=== PATIENT | male | born 1975 | race Caucasian/White ===

== ENCOUNTER 2021-10-15 13:00 | Emergency (ER) | payer OTHER, SELFPAY ==
[2021-10-15 13:33] VITALS: BP 153/99; PULSE 87; RESP 18; TEMP 36.8; O2SAT 95; BMI 26.5
--- NOTE | 2021-10-15 14:00 | ED.GENADULT ---
HPI - General Adult General Time Seen by Provider: 14:00 Date Seen: 10/15/21 Chief complaint: Abdominal Pain Stated complaint: Pancreatitis flare up Time Seen by Provider: 10/15/21 13:08 Source: patient Mode of arrival: ambulatory Limitations: no limitations History of Present Illness HPI narrative: Patient is a 46 year white male with a history of recurrent pancreatitis. He initially had pancreatitis when he was drinking heavily after the loss of his daughter, but more recently has been exacerbated by poor diet. He had been doing very well with his diet, had a service bringing in food, and is on Creon per a GI specialist in the [facility]. He reports he has had several days of increasing periumbilical epigastric and left upper quadrant pain. He is not interested in imaging but he does respond well to fluids and pain control and anti nausea medicine. He has had no chest pain no shortness of breath no fevers, no change in bowel or bladder habits. Related Data Home Medications Medication Instructions Recorded Confirmed fluoxetine 40 mg capsule mg 10/15/21 [id number] cap PO 10/15/21 24,000-76,000-120,000 unit capsule,delayed rel (Creon) omeprazole 20 mg capsule,delayed mg 10/15/21 release Previous Rx's Medication Instructions Recorded hydrocodone 5 mg-acetaminophen 325 1 tab PO Q8H abdominal pain #14 10/15/21 mg tablet tabs Allergies Allergy/AdvReac Type Severity Reaction Status Date / Time Penicillins Allergy Unknown Unverified 10/15/21 14:08 Review of Systems Status of ROS: Reports: 6 or more systems reviewed and unremarkable except as noted in History and below PFSH PFSH Medical History Depression GERD (gastroesophageal reflux disease) Pancreatitis Surgical History S/P right knee surgery Social History Smoking Status: Current every day smoker What tobacco products do you use: cigarettes Second hand tobacco smoke exposure: Yes How often do you have a drink containing alcohol: monthly or less How many standard drinks containing alcohol do you have on a typical day: 3 or 4 How often do you have six or more drinks on one occasion: Never AUDIT-C Alcohol total score: 2 Non-prescribed substance use: denies use Exam Narrative: Exam Narrative: Objective: Patient's vital signs show slightly elevated blood pressure he is afebrile HEENT is unremarkable, no jaundice Pulse regular Abdomen soft benign mild epigastric and left upper quadrant tenderness to palpation, no rebound Extremities are no edema Neurologic nonfocal Skin warm and dry Const: Vital Signs, click to edit/add: Vital Signs - 24 hr 10/15/21 13:33 Temperature 98.3 F Pulse Rate [Pulse Oximeter] 87 Respiratory Rate 18 Blood Pressure [Ri ght Upper Arm] 153/99 H Pulse Oximetry 95 Oxygen Delivery Me thod Room Air Course Course Hospital Course: Because the patient's history of pancreatitis will do an IV, IV fluid, IV morphine and Zofran. Will check laboratory studies including amylase and lipase. After informed decision making and mutual decision making we decided to not do CT scanning given this is a similar problem he has had in the past, he has had several CTs in the past the pancreas is look normal by his history. Vital Signs Vital signs: Initial Vital Signs Temperature 98.3 F 10/15/21 13:33 Temperature Source Temporal Artery Scan 10/15/21 13:33 Pulse Rate 87 10/15/21 13:33 Pulse Rhythm 10/15/21 13:33 Respiratory Rate 18 10/15/21 13:33 Blood Pressure 153/99 H 10/15/21 13:33 Blood Pressure Mean 117 10/15/21 13:33 Pulse Oximetry 95 10/15/21 13:33 Oxygen Delivery Method 10/15/21 13:33 Vital Signs Temperature 98.3 F 10/15/21 13:33 Pulse Rate 87 10/15/21 13:33 Respiratory Rate 18 10/15/21 13:33 Blood Pressure 153/99 H 10/15/21 13:33 Pulse Oximetry 95 10/15/21 13:33 Oxygen Delivery Method 10/15/21 13:33 Temperature 98.3 F 10/15/21 13:33 Pulse Rate 87 10/15/21 13:33 Respiratory Rate 18 10/15/21 13:33 Blood Pressure 153/99 H 10/15/21 13:33 Pulse Oximetry 95 10/15/21 13:33 Oxygen Delivery Method 10/15/21 13:33 Medical Decision Making MDM Narrative Medical decision making narrative: Patient likely has recurrent pancreatitis probably due to his poor diet he denies drinking. He has had recurrent pancreatitis from dietary and did changes from a fairly light and more bland type diet. Will rehydrate and pain control and nausea control and disposition pending findings above. Addendum: The patient's got nice relief from his morphine pain is starting to come back a little bit he will get additional morphine, he would like to try and go home. He has had luck with pain medications at home and NPO type diet for 12-24 hours. If he is not doing well he can return to the ED. He will be given Wood for home, light activity, sips of liquid, return as needed. Update GI doctor within the next 1-2 days, return sooner as needed to ED. Of note is the lab lipase was elevated at 477 his white count was normal hemoglobin is 15.9 potassium is low normal at 3.3 liver function tests slightly elevated CRP less than 0.5 Lab Data Labs: Lab Results 10/15/21 10/15/21 Range/Units 14:25 14:25 WBC 6.46 (4.50-11.00) K/uL RBC 4.76 (4.30-5.90) m/uL Hgb 15.9 (13.5-17.5) gm/dL Hct 45.0 (37.0-53.0) % MCV 95 (80-100) fL MCH 33 (26-34) pg MCHC 35 (32-36) gm/dL RDW Coeff of Clint 14.9 (11.5-15.5) % Plt Count 186 (140-440) K/uL Neut % (Auto) 75.4 H (42.0-72.0) % Lymph % (Auto) 13.8 L (20-44) % [place] % (Auto) 7.3 (0.0-11.0) % Eos % (Auto) 2.5 (0.0-7.0) % Baso % (Auto) 0.8 (0.0-3.0) % Neut # (Auto) 4.90 (1.7-7.0) K/uL Lymph # (Auto) 0.90 (0.90-2.90) K/uL [place] # (Auto) 0.50 (0.00-0.90) K/UL Eos # (Auto) 0.16 (0.00-0.50) K/uL Baso # (Auto) 0.05 (0.00-0.30) K/uL Abs Immat Gran (auto) 0.01 (0.00-0.30) K/uL Sodium 138 (135-149) mmol/L Potassium 3.3 L (3.6-5.1) mmol/L Chloride 106 (96-114) mmol/L Carbon Dioxide 19 L (20-32) mmol/L BUN 6 (5-24) mg/dL Creatinine 0.6 (0.5-1.5) mg/dL Estimated Creat Clear 158.84 Estimated GFR 121 ml/min Glucose 112 (60-115) mg/dL Calcium 8.6 (8.4-10.6) mg/dL Total Bilirubin 0.5 (0.1-1.5) mg/dL Direct Bilirubin 0.2 (0.0-0.5) mg/dL AST 126 H (12-35) U/L ALT 113 H (4-50) U/L Alkaline Phosphatase 139 (40-150) U/L C-Reactive Protein < 0.5 L (0.5-1.0) mg/dL Total Protein 6.8 (6.0-8.3) g/dL Albumin 4.0 (3.3-5.0) g/dL Amylase 71 (18-89) U/L Lipase 477 H (23-300) U/L Discharge Plan Discharge Clinical Impression: Abdominal pain, acute, Acute recurrent pancreatitis Patient Disposition: Home w/ Parent or Adult Condition: Improved Instructions: Pancreatitis (ED) Additional Instructions: Light diet for the next several days, pain medicine as needed, update GI doctor within the next 24-48 hours with symptoms, return to the ED problems or concerns. Activity Level: Light activity Discharge Diet: Clear Liquid Prescriptions: New hydrocodone-acetaminophen 5-325 mg tablet 1 tab PO Q8H Qty: 14 0RF No Action fluoxetine 40 mg capsule omeprazole 20 mg capsule,delayed release(DR/EC) Creon 24,000-76,000 -120,000 unit capsule,delayed release(DR/EC) PO Follow Up/Referrals: Provider,Not a Local [Primary Care Provider] - Stand Alone Forms: [employer] Info Instructions
[2021-10-15] MEDS: ONDANSETRON 2 MG/ML inj 4 MG IVP (14:21)
[2021-10-15] MEDS: MORPHINE 4 MG/ML INJ IVP ×2 (14:21→15:33)
[2021-10-15] MEDS: 0.9 % SODIUM CHLORIDE 1000 ml 1,000 ML 6000 ML IV (14:22)
[2021-10-15 14:44] LABS: Basophils Absolute Auto 0.05 K/uL (0.00-0.30); Basophils Percent Auto 0.8 % (0.0-3.0); Eosinophils Absolute Auto 0.16 K/uL (0.00-0.50); Eosinophils Percent Auto 2.5 % (0.0-7.0); Hemoglobin* 15.9 gm/dL (13.5-17.5); Immature Granulocytes Abs Auto 0.01 K/uL (0.00-0.30); Lymphocytes Percent Auto 13.8 % (20-44); Mean Corpuscular HGB Conc 35 gm/dL (32-36); Mean Corpuscular Hemoglobin 33 pg (26-34); Mean Corpuscular Volume 95 fL (80-100); Monocytes Percent Auto 7.3 % (0.0-11.0); Neutrophils Percent Auto 75.4 % (42.0-72.0); Platelet Count* 186 K/uL (140-440); RDW Coefficient of Variation % 14.9 % (11.5-15.5); Red Blood Count 4.76 m/uL (4.30-5.90); White Blood Count* 6.46 K/uL (4.50-11.00)
[2021-10-15 14:49] LABS: Slide Review Reflex No
[2021-10-15 14:51] LABS: Chloride* 106 mmol/L (96-114)
[2021-10-15 14:52] LABS: Sodium* 138 mmol/L (135-149)
[2021-10-15 14:53] LABS: Potassium* 3.3 mmol/L (3.6-5.1)
[2021-10-15 14:55] LABS: Amylase* 71 U/L (18-89); Aspartate Amino Transferase* 126 U/L (12-35); Bilirubin Direct* 0.2 mg/dL (0.0-0.5); Bilirubin Total* 0.5 mg/dL (0.1-1.5); Blood Urea Nitrogen* 6 mg/dL (5-24); Carbon Dioxide* 19 mmol/L (20-32); Creatinine* 0.6 mg/dL (0.5-1.5); Est. Creatinine Clearance* 158.84; Estimated Glomerular Filt Rate 121 ml/min; Total Protein* 6.8 g/dL (6.0-8.3)
[2021-10-15 14:56] LABS: Alanine Aminotransferase* 113 U/L (4-50); Alkaline Phosphatase* 139 U/L (40-150); Calcium* 8.6 mg/dL (8.4-10.6); Glucose* 112 mg/dL (60-115); Lipase* 477 U/L (23-300)
[2021-10-15 14:58] LABS: C Reactive Protein* < 0.5 mg/dL (0.5-1.0)
[2021-10-15 15:32] VITALS: PULSE 80; RESP 14; O2SAT 94
== END 2021-10-15 15:41 | disposition home or self-care (01) ==
PROVIDERS: Emergency Provider Family Medicine
DX: K29.20 Alcoholic gastritis without bleeding (principal)
CPT/HCPCS: 36415; 80048; 80076; 82150; 83690; 85025; 86140; 96374; 96375; 96376; 99284; J2270; J2405; J7030

== ENCOUNTER 2021-11-24 21:02 | Emergency (ER) | payer OTHER, SELFPAY ==
[2021-11-24 21:27] VITALS: BP 115/80; PULSE 89; RESP 16; TEMP 36.6; O2SAT 95; BMI 28.6
--- NOTE | 2021-11-24 22:11 | ED.ABDPAIN ---
HPI - Abdominal Pain General Chief Complaint: Abdominal Pain Stated Complaint: Abdominal pain, pancreatitis flareup Time Seen by Provider: 11/24/21 21:30 History of Present Illness HPI narrative: 46-year-old man presenting to the emergency department with complaint of epigastric area abdominal pain. He says he knows what it is it is his pancreatitis flaring. Tonight he was making supper and had episode of PTSD related to his 1-month-old daughter's and had a couple of drinks and then his pain started in his epigastrium. A sharp pain pressure. Started vomiting than without hematemesis Not so much cramping in his extremities but has a twitching in his thighs. Was seen for similar fiber 6 weeks ago here in this emergency department. Spouse dropped him off. Does have a 6-year-old boy at home. Takes daily omeprazole. Related Data Home Medications Medication Instructions Recorded Confirmed fluoxetine 40 mg capsule mg 10/15/21 [id number] cap PO 10/15/21 24,000-76,000-120,000 unit capsule,delayed rel (Creon) omeprazole 20 mg capsule,delayed mg 10/15/21 release Previous Rx's Medication Instructions Recorded hydrocodone 5 mg-acetaminophen 325 1 tab PO Q8H abdominal pain #14 10/15/21 mg tablet tabs hydrocodone 5 mg-acetaminophen 325 1 tab PO TID PRN pain #5 tabs 11/25/21 mg tablet Allergies Allergy/AdvReac Type Severity Reaction Status Date / Time Penicillins Allergy Unknown Verified 11/24/21 21:32 Review of Systems Status of ROS Reports: 10 or more systems reviewed and unremarkable except as noted in History and below [facility] Medical History Depression GERD (gastroesophageal reflux disease) Pancreatitis Surgical History S/P right knee surgery Social History Smoking Status: Current some day smoker What tobacco products do you use: cigarettes Second hand tobacco smoke exposure: Yes How often do you have a drink containing alcohol: 2-3 times a week How many standard drinks containing alcohol do you have on a typical day: 1 or 2 How often do you have six or more drinks on one occasion: Less than monthly AUDIT-C Alcohol total score: 4 Non-prescribed substance use: denies use Exam Narrative: Exam Narrative: Is pleasant. Tremulous. Face is flushed. Slightly labored with breathing as if in discomfort. Skin is warm and dry. Well-perfused peripherally. No extremity edema. Oropharynx is hyperemic consistent with nicotine dependence. A little sticky Lungs are clear Abdomen overweight. Normoactive bowel sounds. Tender and a little guarding to palpation in the epigastrium Moving extremities without difficulty Const: Vital Signs, click to edit/add: Vital Signs - 24 hr 11/24/21 21:27 Temperature 97.9 F Pulse Rate [Left P ulse Oximeter] 89 Respiratory Rate 16 Blood Pressure [Ri ght Upper Arm] 115/80 Pulse Oximetry 95 Oxygen Delivery Me thod Room Air Documenting provider has reviewed patient's vital signs: yes Course Course Hospital Course: IV was established. IV fluids. Given morphine and Zofran as last time as well as lorazepam and ketorolac Reevaluation(s) Reevaluation #1: Reassessment notes improvement. Pain is starting to come back a little bit. Was redosed with low-dose morphine Vital Signs Vital signs: Initial Vital Signs Temperature 97.9 F 11/24/21 21:27 Temperature Source Oral 11/24/21 21:27 Pulse Rate 89 11/24/21 21:27 Respiratory Rate 16 11/24/21 21:27 Blood Pressure 115/80 11/24/21 21:27 Blood Pressure Mean 91 11/24/21 21:27 Blood Pressure Position Sitting 11/24/21 21:27 Pulse Oximetry 95 11/24/21 21:27 Oxygen Delivery Method 11/24/21 21:27 Vital Signs Temperature 97.9 F 11/24/21 21:27 Pulse Rate 89 11/24/21 21:27 Respiratory Rate 16 11/24/21 21:27 Blood Pressure 115/80 11/24/21 21:27 Pulse Oximetry 95 11/24/21 21:27 Oxygen Delivery Method 11/24/21 21:27 Temperature 97.9 F 11/24/21 21:27 Pulse Rate 89 11/24/21 21:27 Respiratory Rate 16 11/24/21 21:27 Blood Pressure 115/80 11/24/21 21:27 Pulse Oximetry 95 09/19/22 21:27 Oxygen Delivery Method 11/24/21 21:27 MDM - Abdominal Pain MDM Narrative Medical decision making narrative: White count is not elevated. Transaminases a little more elevated than last time but not terribly high. Normal lipase. Venous blood gas consistent with hyperventilation I think. Alcohol level is 0.19 Having more consistent with alcoholic gastritis in the setting of a panic attack. Medical Records Attestation: I reviewed the patient's medical records. Lab Data Attestation: I reviewed the patient's lab results. Labs: Lab Results 11/24/21 11/24/21 11/24/21 Range/Units 22:28 22:28 22:28 WBC 5.77 (4.50-11.00) K/uL RBC 4.76 (4.30-5.90) m/uL Hgb 16.6 (13.5-17.5) gm/dL Hct 46.5 (37.0-53.0) % MCV 98 (80-100) fL MCH 35 H (26-34) pg MCHC 36 (32-36) gm/dL RDW Coeff of Clint 14.0 (11.5-15.5) % Plt Count 220 (140-440) K/uL Neut % (Auto) 53.7 (42.0-72.0) % Lymph % (Auto) 32.1 (20-44) % [place] % (Auto) 9.0 (0.0-11.0) % Eos % (Auto) 3.3 (0.0-7.0) % Baso % (Auto) 1.0 (0.0-3.0) % Neut # (Auto) 3.10 (1.7-7.0) K/uL Lymph # (Auto) 1.85 (0.90-2.90) K/uL [place] # (Auto) 0.50 (0.00-0.90) K/UL Eos # (Auto) 0.19 (0.00-0.50) K/uL Baso # (Auto) 0.06 (0.00-0.30) K/uL Abs Immat Gran (auto) 0.05 (0.00-0.30) K/uL VBG pH 7.455 H (7.32-7.43) VBG pCO2 38 L (40-50) mmHG VBG pO2 73.9 H (25-47) mmHG VBG HCO3 27 (21-28) mmol/L Sodium 138 (135-149) mmol/L Potassium 3.2 L (3.6-5.1) mmol/L Chloride 103 (96-114) mmol/L Carbon Dioxide 24 (20-32) mmol/L BUN 6 (5-24) mg/dL Creatinine 0.6 (0.5-1.5) mg/dL Estimated Creat Clear 163.85 Estimated GFR 121 ml/min Glucose 121 H (60-115) mg/dL Calcium 8.5 (8.4-10.6) mg/dL Magnesium 1.9 (1.5-2.6) mg/dL Total Bilirubin 0.4 (0.1-1.5) mg/dL Direct Bilirubin 0.3 (0.0-0.5) mg/dL AST 165 H (12-35) U/L ALT 215 H (4-50) U/L Alkaline Phosphatase 126 (40-150) U/L C-Reactive Protein < 0.5 L (0.5-1.0) mg/dL Total Protein 6.5 (6.0-8.3) g/dL Albumin 3.9 (3.3-5.0) g/dL Lipase 41 (23-300) U/L Ethyl Alcohol 0.19 H (0.01-0.03) % Discharge Plan Discharge Clinical Impression: Panic attack, Acute alcoholic gastritis Patient Disposition: Home w/ Parent or Adult Condition: Improved Additional Instructions: Slow advance of diet over the next 36 hours. Diluted juices and broths to thicker soups and smoothies. Rice. [place]. Return for uncontrolled pain, associated fever, intractable vomiting. Please reach out again to support network, your therapist, sponsor. Have fun with your son tomorrow. Zofran from [employer] if you like. Prescriptions: No Action hydrocodone-acetaminophen 5-325 mg tablet 1 tab PO TID PRN (Reason: pain) Qty: 5 0RF fluoxetine 40 mg capsule omeprazole 20 mg capsule,delayed release(DR/EC) Creon 24,000-76,000 -120,000 unit capsule,delayed release(DR/EC) PO hydrocodone-acetaminophen 5-325 mg tablet 1 tab PO Q8H Qty: 14 0RF Follow Up/Referrals: Provider,Not a Local [Primary Care Provider] - Stand Alone Forms: [employer] Info Instructions
--- OUTSIDE RECORDS SUMMARY | 2021-11-24 22:15 | XMS_ITS | Clinical Summary ---
:1975 Author Organization [employer] [facility] [place] [address] Care Team Providers Name Role Phone Melisa Delgado NP Primary Care Provider Allergies Active Allergy Reactions Severity Noted Date Comments Penicillins Hives 04/05/2014 Medications Medication Sig Dispensed Refills Start Date End Date Status calcium carbonate Take 500 mg by 0 Active (TUMS) 200 mg mouth 4 times daily calcium (500 mg) if needed for chewable tablet Heartburn or GI Upset. omeprazole Take 1 Capsule by 30 Capsule 0 05/17/2020 Active (PRILOSEC) 20 mg mouth once daily Delayed-Release before a meal. capsuleIndications: Acute pancreatitis, unspecified complication status, unspecified pancreatitis type alfuzosin Take 1 Tablet by 0 02/13/2021 Ac tive (UROXATRAL) 10 mg mouth once daily Sustained-Release with a meal. tablet acetaminophen Take 1-2 Tablets 30 Tablet 0 03/24/2021 Active (TYLENOL EXTRA (500-1,000 mg) by STRGTH) 500 mg mouth every 6 hours tabletIndications: if needed for Epigastric pain, Headache or Pain. Chronic Max acetaminophen pancreatitis, dose: 4000mg in 24 unspecified hrs. pancreatitis type (HC) Creon 24,000-76,000 0 04/26/2021 Active -120,000 unit Delayed-Release capsule sildenafil citrate Take 1/2-1 tab Take 10 Tablet 5 06/06/2021 Active (VIAGRA) 100 mg 30min to 4 hours tabletIndications: before sexual Libido, decreased activity. Max 100mg/24hr. FLUoxetine (PROzac) Take 20 mg by mouth 0 Active 20 mg capsule once daily. omeprazole Take 1 Capsule (40 14 Capsule 0 11/11/2021 Active (PRILOSEC) 40 mg mg) by mouth once Delayed-Release daily. capsuleIndications: Upper abdominal pain aluminum-magnesium Take 15 mL by mouth 354 mL 0 11/11/2021 Active hydroxide-simethicon 4 times daily if e (MAALOX PLUS; needed for GI MYLANTA) 200-200-20 Upset. mg/5 mL suspensionIndication s: Upper abdominal pain ondansetron (ZOFRAN Place 1 Tablet (4 12 Tablet 0 11/11/2021 Active ODT) 4 mg mg) on the tongue disintegrating every 8 hours if tabletIndications: needed for Nausea Nausea/Vomiting. alum hydrox-mag carb Chew 2 Tablets by 60 Tablet 0 11/15/2021 Active (GAVISCON EXT STR mouth 4 times daily CHEW) 160-105 mg if needed chewableIndications: (abdominal pain). Abdominal pain, unspecified abdominal location ondansetron (ZOFRAN Place 2 Tablets (8 20 Tablet 0 11/15/2021 Active ODT) 4 mg mg) on the tongue disintegrating every 8 hours if tabletIndications: needed for Abdominal pain, Nausea/Vomiting. 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 01/06/2021 Failure of outpatient treatment 01/06/2021 Complicated bereavement 01/06/2021 Complex tear of medial meniscus of right knee as curre nt injury 11/23/2020 Sprain of anterior cruciate ligament of right knee Primary osteoarthritis of right knee 11/23/2020 History of arthroscopy of right knee 09/22/2020 HTN (hypertension) 05/17/2020 Alcohol-induced acute pancreatitis without infection o r necrosis 05/17/2020 Panic disorder 11/26/2014 Anxiety 04/07/2014 Chronic prostatitis 05/04/2011 Dislocation closed, finger Overview: LT 5 th finger 2016 Grief at loss of child Alcohol abuse Polyp of colon Encounters Date Type Specialty Care Team Description 11/15/2021 Emergency Ball[facility]ory Ab dominal pain, unspecified abdominal locat ion (Primary Dx) 11/15/2021 Travel 11/11/2021 Emergency Kevyn Jones PA Up per abdominal pain (Primary Dx); Alcohol use; Hypokalemia; Hyperglycemia; Nausea 11/11/2021 Travel from Last 3 Months Immunizations Name Administration Dates Next Due COVID-19 vaccine (Tamion-J&J) PF, 06/08/2020 MDV COVID-19 vaccine (Intentiva 03/05/2021 30mcg/0.3mL) PF, MDV HepA-HepB (Twinrix) 06/25/2014 Influenza Intradermal PF 18-64 yrs 05/03/2012 Influenza Virus, Unspecified 02/24/2019, 12/18/2013 Influenza, IIV3 (Age 6-35 mos) 03/22/2009 Influenza, IIV3 (Age >=3 years) 12/18/2013, 02/05/2013, 04/09, 12/29/2010, 01/04/2010, 03/22/2009 Influenza, IIV4 01/02/2021, 11/27/2019, 04/01/2018, 03/26/2016 Pneumococcal Poly,23-Valent 03/05/2021 (Pneumovax) Tdap 08/20/2012, 03/22/2009 Family History Medical History Relation Name Comments Good Health Brother Diabetes Father Other Father polyps colon Good Health Mother Good Health Sister Good Health Son 1 Good Health Son 2 Cancer No Family History Heart attack No Family History Stroke No Family History Relation Name Status Comments Brother Alive Father Alive Maternal Grandfather Alive Maternal Grandmother Alive Mother Alive Paternal Grandfather Paternal Grandmother Sister Alive Son 1 Alive Son 2 Alive Social History Tobacco Use Types Packs/Day Years Used Date Current Some Day Smoker Cigarettes 0.5 12 Quit : 05/25/2014 Smokeless Tobacco: Never Used Tobacco Cessation: Counseling Given: Yes Comments: occl cigarette when nervous Alcohol Use Standard Drinks/Week Comments Not Currently 0 (1 standard drink = 0.6 oz pure alcoho l) stopped Alcohol Habits Answer Date Recorded How often do you have a drink containing alcohol? 2-4 times a month 11/10/2018 How many drinks containing alcohol do you have on a 3 or 4 11/10/2018 typical day when you are drinking? How often do you have six or more drinks on one Never 11/10/2018 occasion? Comment: stopped 07/30/2020 Sex Assigned at Date Recorded Not on file COVID-19 Exposure Response Date Recorded In the last 10 days, have you been in contact with No / Unsu re 11/15/2021 6:11 AM CDT someone who was confirmed or suspected to have Coronavirus/COVID-19? Obstetrics History Last Filed Vital Signs Vital Sign Reading Time Taken Comments Blood Pressure 147/96 11/15/2021 8:00 AM CDT Pulse 72 11/15/2021 8:00 AM CDT Temperature 36.6 ??C (97.9 ??F) 11/15/2021 6:19 AM CDT Respiratory Rate 20 11/15/2021 6:19 AM CDT Oxygen Saturation 94% 11/15/2021 8:00 AM CDT Inhaled Oxygen Concentration - - Weight 94.2 kg (207 lb 10.8 oz) 11/15/2021 6:19 AM CDT Height 177.8 cm (5' 10) 11/15/2021 6:19 AM CDT Body Mass Index 29.8 11/15/2021 6:19 AM CDT Plan of Treatment Health Maintenance Due Date Last Done Comments Hepatitis C screening for age 0709/20/1993 18-79 Depression screening for age 12+ 06/21/2021 06/21/2020, , 11/27/2019, Additional history exists Influenza for age 9-49 11/06/2021 01/02/2021, 11/27/2019, 02/24/2019, Additional history exists BMI (ht and wt on same day) for 03/05/2022 03/05/2021, 01/06, age 18+ 01/02/2021, Additional history exists Pneumococcal series for age 19-64 03/05/2022 03/05/2021 (2 - PCV) Tetanus booster 08/20/2022 08/20/2012, 03/22/2009 Lipids for age 45-75 11/25/2025 11/25/2020, 11/27/2019, 11/10/2018, Additional history exists Colonoscopy through age 75 12/17/2025 12/17/2020, 6, 10/09/2015, Additional history exists Tdap Completed 08/20/2012, 03/22/2009 COVID-19 vaccine series Completed 03/05/2021, 06/08/2020 Procedures Procedure Name Priority Date/Time Associated Comments Diagnosis RED CELL MORPHOLOGY STAT 11/15/2021 6:32 AM Re sults for this CDT procedure are i n the results section. PLATELET ESTIMATE STAT 11/15/2021 6:32 AM Resu lts for this CDT procedure are i n the results section. MANUAL DIFFERENTIAL STAT 11/15/2021 6:32 AM Re sults for this CDT procedure are i n the results section. CBC WITH AUTO STAT 11/15/2021 6:32 AM Results for this DIFFERENTIAL CDT procedure are i n the results section. LIPASE STAT 11/15/2021 6:32 AM Results f or this CDT procedure are i n the results section. HEPATIC FUNCTION STAT 11/15/2021 6:32 AM Resul ts for this PANEL CDT procedure are i n the results section. BASIC METABOLIC PANEL STAT 11/15/2021 6:32 AM Results for this CDT procedure are i n the results section. CBC WITH AUTO STAT 11/15/2021 6:32 AM Results for this DIFFERENTIAL CDT procedure are i n the results section. CBC WITH AUTO STAT 11/11/2021 12:14 Results fo r this DIFFERENTIAL PM CDT procedure are i n the results section. BASIC METABOLIC PANEL STAT 11/11/2021 12:14 Re sults for this PM CDT procedure are i n the results section. LIPASE STAT 11/11/2021 12:14 Results for this PM CDT procedure are i n the results section. HEPATIC FUNCTION STAT 11/11/2021 12:14 Results for this PANEL PM CDT procedure are i n the results section. MAGNESIUM STAT 11/11/2021 12:14 Results for this PM CDT procedure are i n the results section. C-REACTIVE PROTEIN STAT 11/11/2021 12:14 Resul ts for this PM CDT procedure are i n the results section. ETHANOL SERUM OR STAT 11/11/2021 12:14 Results for this PLASMA PM CDT procedure are i n the results section. CBC WITH AUTO STAT 11/11/2021 12:14 Results fo r this DIFFERENTIAL PM CDT procedure are i n the results section. from Last 3 Months Results (ABNORMAL) CBC WITH AUTO DIFFERENTIAL (11/15/2021 6:32 AM CDT)Only the most recent of2 resultswithin the time period is included. [facility] Method Time Signature WHITE BLOOD 5.7 4.5 - 11.0 11/15/2021 [place] COUNT thou/cu mm 6:59 AM [facility] RED BLOOD COUNT 5.02 4.30 - 11/15/2021 [place] 5.90 6:[address] [facility] mil/cu mm LABORATORY HEMOGLOBIN 17.1 13.5 - 11/15/2021 [facility] 17.5 g/dL 6:59 AM [facility] HEMATOCRIT 48.9 37.0 - 11/15/2021 [facility] 53.0 % 6:59 AM [facility] MCV 97 80 - 100 11/15/2021 [facility] fL 6:59 AM [facility] MCH 34.1 (H) 26.0 - 11/15/2021 [place] 34.0 pg 6:59 AM [facility] MCHC 35.0 32.0 - 11/15/2021 [facility] 36.0 g/dL 6:59 AM [facility] RDW 14.7 11.5 - 11/15/2021 [facility] 15.5 % 6:59 AM [facility] PLATELET COUNT 196 140 - 440 11/15/2021 [facility] thou/cu mm 6:59 AM [facility] MPV 10.7 6.5 - 11.0 11/15/2021 [place] fL 6:59 AM [facility] Specimen Anatomical Collection Method / Collection Time Recei alberta Time (Source) Location / Volume Laterality Blood BLOOD SPECIMEN / Venipuncture / 11/15/2021 6:32 2021 6:35 Unknown Unknown AM CDT AM CDT Kory Reynoso MD HEMATOLOGY Performing Organization Address City/State/ZIP Code Phon e Number [facility] [address] [place] [address] RED CELL MORPHOLOGY (11/15/2021 6:32 AM CDT) [facility] Method Time Signature RBC COMMENT RBC RBC 11/15/2021 [place] morphology morphology 6:59 AM CDT MEDICAL appears appears CENTER normal normal, RBC LABORATORY morphology within normal limits for newborns. LARGE Present 11/15/2021 [place] PLATELETS 6:59 AM [facility] Specimen Anatomical Collection Method / Collection Time Recei alberta Time (Source) Location / Volume Laterality Blood BLOOD SPECIMEN / Venipuncture / 11/15/2021 6:32 2021 6:35 Unknown Unknown AM CDT AM CDT Kory Reynoso MD HEMATOLOGY Performing Organization Address City/[facility]/ZIP Code Phon e Number [facility] [address] [place] [address] PLATELET ESTIMATE (11/15/2021 6:32 AM CDT) [facility] Time Signature PLATELET Adequate Adequate, No 11/15/2021 [place] ESTIMATE estimate 6:59 AM [facility] Specimen Anatomical Collection Method / Collection Time Recei alberta Time (Source) Location / Volume Laterality Blood BLOOD SPECIMEN / Venipuncture / 11/15/2021 6:32 2021 6:35 Unknown Unknown AM CDT AM CDT Kory Reynoso MD HEMATOLOGY Performing Organization Address City/State/ZIP Code Phon e Number [facility] [address] [place] [address] MANUAL DIFFERENTIAL (11/15/2021 6:32 AM CDT) P athologist Signature NEUTROPHILS 69.0 % 11/15/2021 [place] RELATIVE 6:59 AM CDT [facility] LYMPHOCYTES 20.0 % 11/15/2021 [place] RELATIVE 6:59 AM CDT [facility] MONOCYTES 8.0 % 11/15/2021 [place] RELATIVE 6:59 AM CDT [facility] EOSINOPHILS 3.0 % 11/15/2021 [place] RELATIVE 6:59 AM CDT [facility] BASOPHILS 0.0 % 11/15/2021 [place] RELATIVE 6:59 AM CDT [facility] NEUTROPHILS 3.9 1.7 - 7.0 11/15/2021 [place] ABSOLUTE thou/cu mm 6:59 AM CDT [facility] LYMPHOCYTES 1.1 0.9 - 2.9 11/15/2021 [place] ABSOLUTE thou/cu mm 6:59 AM T [facility] LABORATORY MONOCYTES 0.5 <0.9 11/15/2021 [place] ABSOLUTE thou/cu mm 6:59 AM T [facility] LABORATORY EOSINOPHILS 0.2 <0.5 11/15/2021 [place] ABSOLUTE thou/cu mm 6:59 AM T [facility] LABORATORY BASOPHILS 0.0 <0.3 11/15/2021 [place] ABSOLUTE thou/cu mm 6:59 AM T [facility] LABORATORY Specimen Anatomical Collection Method / Collection Time Recei alberta Time (Source) Location / Volume Laterality Blood BLOOD SPECIMEN / Venipuncture / 11/15/2021 6:32 2021 6:35 Unknown Unknown AM CDT AM CDT Kory Reynoso MD HEMATOLOGY Performing Organization Address [facility] e [facility] LABORATORY [address] [place] [address] LIPASE (11/15/2021 6:32 AM CDT)Only the most recent of2 resultswithin the time period is included. P athologist Signature LIPASE 11.0 8.0 - 78.0 11/15/2021 [place] IU/L 6:55 AM [facility] Specimen Anatomical Collection Method / Collection Time Recei alberta Time (Source) Location / Volume Laterality Blood BLOOD SPECIMEN / Venipuncture / 11/15/2021 6:32 2021 6:35 Unknown Unknown AM CDT AM CDT Kory Reynoso MD CHEMISTRY Performing Organization Address [facility] e Number [facility] [address] [place] [address] (ABNORMAL) HEPATIC FUNCTION PANEL (11/15/2021 6:32 AM CDT)Only the most recent of2 resultswithin the time period is included. Patholo gist Method Time Signature ALBUMIN 4.1 3.5 - 5.2 11/15/2021 [place] g/dL 6:55 AM [facility] PROTEIN,TOTAL 7.2 6.0 - 8.0 11/15/2021 [place] g/dL 6:55 AM [facility] GLOBULIN 3.1 2.0 - 3.7 11/15/2021 [place] g/dL 6:55 AM [facility] A/G RATIO 1.3 1.0 - 2.0 11/15/2021 [place] 6:55 AM [facility] BILIRUBIN,TOTAL 1.0 0.2 - 1.2 11/15/2021 [place] mg/dL 6:55 AM [facility] BILIRUBIN,DIRECT 0.6 (H) 0.1 - 0.5 11/15/2021 [place] mg/dL 6:55 AM [facility] BILIRUBIN,INDIRE 0.4 0.2 - 0.8 11/15/[address] [place] [address] mg/dL 6:55 AM [facility] ALK PHOSPHATASE 164 (H) 50 - 136 11/15/2021 [place] IU/L 6:55 AM [facility] ALT (SGPT) 132 (H) 8 - 45 11/15/2021 [place] IU/L 6:55 AM [facility] AST (SGOT) 177 (H) 2 - 40 11/15/2021 [facility] IU/L 6:55 AM [facility] Specimen Anatomical Collection Method / Collection Time Recei alberta Time (Source) Location / Volume Laterality Blood BLOOD SPECIMEN / Venipuncture / 11/15/2021 6:32 2021 6:35 Unknown Unknown AM CDT AM CDT Kory Reynoso MD CHEMISTRY Performing Organization Address City/State/ZIP Code Phon e Number [facility] [address] [place] [address] (ABNORMAL) BASIC METABOLIC PANEL (11/15/2021 6:32 AM CDT)Only the most recent of 2 resultswithin the time period is included. Analysis Performed At Patho logist Time Signature SODIUM 141 135 - 145 11/15/2021 [place] mmol/L 6:56 AM [facility] POTASSIUM 2.9 (L) 3.5 - 5.0 11/15/2021 [place] mmol/L 6:56 AM [facility] CHLORIDE 102 98 - 110 11/15/2021 [place] mmol/L 6:56 AM [facility] CO2,TOTAL 21 21 - 31 11/15/2021 [place] mmol/L 6:56 AM [facility] ANION GAP 18 5 - 18 11/15/2021 [place] 6:56 AM [facility] GLUCOSE 119 (H) 65 - 100 11/15/2021 [place] mg/dL 6:56 AM [facility] CALCIUM 9.2 8.5 - 10.5 11/15/2021 [place] mg/dL 6:56 AM [facility] BUN 3 (L) 8 - 25 11/15/2021 [facility] mg/dL 6:56 AM [facility] CREATININE 0.72 0.72 - 11/15/2021 [place] 1.25 mg/dL 6:56 AM [facility] BUN/CREAT RATIO 4 (L) 10 - 20 [facility] eGFR >90 >90 11/15/2021 [facility] mL/min/1.7 6:56 AM [facility] 3m2 LABORATORY Comment: As of 2021, eGFR is calcu lated by the CKD-EPI creatinine equation without race adjustment. eGFR can be inf luenced by muscle mass, exercise, and diet. The reported eGFR is an estimation only and is only applicable if the renal function is stable. Specimen Anatomical Collection Method / Collection Time Recei alberta Time (Source) Location / Volume Laterality Blood BLOOD SPECIMEN / Venipuncture / 11/15/2021 6:32 2021 6:35 Unknown Unknown AM CDT AM T Kory Reynoso MD CHEMISTRY Performing Organization Address City/State/ZIP Code Phon e Number [facility] [address] [place] [address] (ABNORMAL) ETHANOL SERUM OR PLASMA (11/11/2021 12:14 PM CDT) P athologist Signature ETHANOL 0.232 (H) <0.010 11/11/2021 [place] g/dL 12:41 PM [facility] Specimen Anatomical Collection Method Collection Time Receive d Time (Source) Location / / Volume Laterality Blood BLOOD SPECIMEN / Capillary / 11/11/2021 12:14 022 Unknown Unknown PM CDT 12:21 PM CDT Jules Fitzpatrick MD CHEMISTRY Performing Organization Address [facility]/[place] [facility] [place] Number [facility] [address] [place] [address] C-REACTIVE PROTEIN (11/11/2021 12:14 PM CDT) P athologist Signature C-REACTIVE 0.10 <0.50 11/11/2021 [place] PROTEIN mg/dL 12:40 PM CDT [facility] LAB[facility] Specimen Anatomical Collection Method Collection Time Receive d Time (Source) Location / / Volume Laterality Blood BLOOD SPECIMEN / Capillary / 11/11/2021 12:14 022 Unknown Unknown PM CDT 12:21 PM CDT Jules Fitzpatrick MD CHEMISTRY Performing Organization Address [facility] Phon e Number [facility] [address] [place] [address] MAGNESIUM (11/11/2021 12:14 PM CDT) P athologist Signature MAGNESIUM 2.0 1.6 - 2.6 11/11/2021 [place] mg/dL 12:43 PM CDT [facility] LAB[facility] Specimen Anatomical Collection Method Collection Time Receive d Time (Source) Location / / Volume Laterality Blood BLOOD SPECIMEN / Capillary / 11/11/2021 12:14 022 Unknown Unknown PM CDT 12:21 PM CDT Jules Fitzpatrick MD CHEMISTRY Performing Organization Address City/[facility]/ZIP Code Phon e Number [facility] [address] [place] [address] from Last 3 Months Insurance Payer Benefit Plan / Subscriber ID Effective Dates Phone Addre ss Type Group [facility] [id number] 2018-Present [address] [address] [place] [address] Juan Ramon Granados Williams Personal/Family Self 1975 [address] (Home) [place] [id number] Advance Directives Latest Code Status on File Code Status Date Activated Date Inactivated Comments Full Code 02/26/2021 1:49 PM 02/27/2021 12:26 PM Code Status Discussion: Reviewed Preferences Full Code 01/06/2021 12:02 PM 01/07/2021 12:43 PM Code Status Discussion: Not Discussed Full Code 12/17/2020 7:37 AM 12/17/2020 11:31 AM Code Status Discussion: Discussed Full Code 05/15/2020 12:45 AM 05/17/2020 5:31 PM Code Status Discussion: Not Discussed Full Code 09/28/2016 1:12 PM 09/28/2016 9:55 PM Care Teams Keg Header Relationship Specialty Start Date End Date Melisa Delgado NP PCP - General Family Practice 04/05/14 [address] [place] [id number]
--- OUTSIDE RECORDS SUMMARY | 2021-11-24 22:15 | XMS_ITS | Encounter Summary ---
:1975 Author Organization [facility] Address [address] [place] [address] Care Team Providers Name Role Phone Aydin Morales MD Primary Care Provider Encounter Details Date Type Department Care Team Description 11/01/2009 Emergency room [facility] Social History Tobacco Use Types Packs/Day Years Used Date Never Assessed Sex Assigned at Date Recorded Not on file documented as of this encounter Plan of Treatment Not on filedocumented as of this encounter Visit Diagnoses Not on filedocumented in this encounter Care Teams Team Lead Relationship Specialty Start Date End Date Aydin Morales MD PCP - General 11/01/09 1001 [facility] [address] [place] [address] documented as of this encounter
--- OUTSIDE RECORDS SUMMARY | 2021-11-24 22:15 | XMS_ITS | Encounter Summary ---
:1975 Author Organization [facility] Address [address] [place] [address]. [place] [address] Care Team Providers Name Role Phone Aydin Moraels MD Primary Care Provider Reason for Visit Reason Comments ER NOTES Encounter Details Date Type Department Care Team Description 11/01/2009 Orders Only [facility] Brian Vicente Dog Bite (Primary Dx) DO Loc 911 [facility] ABBY [place]O [address] (Wo rk) Social History Tobacco Use Types Packs/Day Years Used Date Never Assessed Sex Assigned at Date Recorded Not on file documented as of this encounter Plan of Treatment Not on filedocumented as of this encounter Visit Diagnoses Diagnosis Dog bite(E906.0) - Primary Dog bite documented in this encounter Care Teams Interim Controller Relationship Specialty Start Date End Date Aydin Morales MD PCP - General 11/01/09 1001 [facility] [address] [place] [id number] documented as of this encounter
--- OUTSIDE RECORDS SUMMARY | 2021-11-24 22:15 | XMS_ITS | Encounter Summary ---
:1975 Author Organization [place] Address [address] [place] [address] Care Team Providers Name Role Phone Aydin Morales MD Primary Care Provider Reason for Visit Reason Comments Abdominal Pain Pt was on 3A, had acute ABD pain, sent to ER by Hospitalist. Auth/Cert Specialty Diagnoses / Procedures Referred By Contact Refer red To Contact Med Surg Diagnoses Acute pancreatitis Acute pancreatitis [address] [place] [address] Phone: Referral ID Status Reason Start Date Expiration Date Visits Requ ested Visits Authorized [id number] 1 1 Encounter Details Date Type Department Care Team Description 10/20/2020 - [facility] Emily Borja MD [address] [address] Alcohol-induced 10/23/2020 Encounter [facility] [address] Jackson Coughlin DO [address] [place] [address] acute pancreatitis, Jackson Martinez MD [address] [place] [address] unspecified [address] [facility] Chetan Villasenor MD [address] [address] complication status MPLABBY Solano (Primary Dx) [id number] Social History Tobacco Use Types Packs/Day Years Used Date Current Every Day Smoker 0.5 Smokeless Tobacco: Never Used Alcohol Use Standard Drinks/Week Comments Yes 0 (1 standard drink = 0.6 oz pure curren tly drinking anything, beer alcohol) or white claws Alcohol Habits Answer Date Recorded How often do you have a drink Not asked containing alcohol? How many drinks containing alcohol Not asked do you have on a typical day when you are drinking? How often do you have six or more Not asked drinks on one occasion? Comment: currently drinking anything, beer 2020 or white claws Sex Assigned at Date Recorded Not on file COVID-19 Exposure Response Date Recorded In the last month, have you been in contact with No / Unsure 10/19/2020 12:13 PM CDT someone who was confirmed or suspected to have Coronavirus / COVID-19? documented as of this encounter Last Filed Vital Signs Vital Sign Reading Time Taken Comments Blood Pressure 148/89 10/23/2020 8:22 AM CDT Pulse 67 10/23/2020 8:22 AM CDT Temperature 36.9 ??C (98.4 ??F) 10/23/2020 8:22 AM CDT Respiratory Rate 18 10/23/2020 8:22 AM CDT Oxygen Saturation 97% 10/23/2020 8:22 AM CDT Inhaled Oxygen Concentration - - Weight 95.3 kg (210 lb) 10/20/2020 3:28 AM CDT Height - - Body Mass Index 29.29 10/19/2020 7:27 PM CDT documented in this encounter Discharge Summaries Chetan Villasenor MD - 10/23/2020 11:42 AM CDT [facility] Hospitalist Discharge Summary Date of Admission: 10/20/2020 Date of Discharge: 10/23/2020 12:42 PM Discharging Provider: Chetan Villasenor MD Discharge Team: Hospitalist Service, [facility] Discharge Diagnoses SIRS without active infection due to Acute pancreatitis Acute EtOH pancreatitis Alcohol Use disorder with withdrawal Follow-ups Needed After Discharge Follow-up Appointments Follow Up and recommended labs and tests Follow up with primary care provider, Aydin Morales, within 7 days for hospital follow- up. No follow up labs or test are needed. Unresulted Labs Ordered in the Past 30 Days of this Admission Date and Time Order Name Status Description 10/21/2020 10:47 AM Blood Culture Arm, Left Preliminary 10/21/2020 10:47 AM Blood Culture Hand, Right Preliminary These results will be followed up by Ordering physician Discharge Disposition Discharged to home Condition at discharge: Stable Hospital Course Juan Ramon Franco is a 45 year old male admitted on 10/20/2020. He??was admitted for acute pancreatitisand alcohol withdrawal due to alcohol relapse related to bereavement on the 1yr anniversary of deathof daughter at 1 month age. He presented with abd pain, nausea and found to have elevated lipase. Did have some elevated inflammatory markers. He was treated with IVF and narcotics and gradual advancement of diet with improvement. His hospital course was c/b development of mild ileus which resolved. He was subsequently discharged to home on oral narcotics and bowel regimen. ?? Consultations This Hospital Stay [facility] IP CONSULT VASCULAR ACCESS CARE ADULT IP CONSULT Code Status Prior Time Spent on this Encounter I, Chetan Villasenor MD, personally saw the patient today and spent less than or equal to 30 minutes discharging this patient. Chetan Villasenor MD [facility] [address] [place] [id number] Physical Exam BP (!) 148/89 (BP Location: Right arm) Pulse 67 Temp 98.4 ??F (36.9 ??C) (Oral) Resp 18 Wt 95.3 kg (210 lb) SpO2 97% BMI 29.29 kg/m?? Constitutional: Awake, alert, cooperative, no apparent distress Respiratory: Clear to auscultation bilaterally, no crackles or wheezing Cardiovascular: Regular rate and rhythm, normal S1 and S2, and no murmur noted, no edema GI: Normal bowel sounds, soft, non-distended, non-tender Skin/Integumen: No rashes, no cyanosis Primary Care Physician Aydin Morales Discharge Orders Reason for your hospital stay You were hospitalized for pancreatitis and alcohol withdrawal. Treated with medications Activity Your activity upon discharge: activity as tolerated Follow Up and recommended labs and tests Follow up with primary care provider, Aydin Morales, within 7 days for hospital follow- up. No followup labs or test are needed. Diet Follow this diet upon discharge: Orders Placed This Encounter Regular Diet Adult Significant Results and Procedures Most Recent 3 CBC's:Recent Labs Lab Test 10/23/20 0731 10/22/20 0741 10/21/20 0735 10/20/20 0350 WBC -- 11.6* 14.1* 8.2 HGB -- 13.8 15.6 16.0 MCV -- 99 101* 99 PLT 159 150 166 208 Most Recent 3 BMP's:Recent Labs Lab Test 10/23/20 0731 10/22/20 0741 10/21/20 0735 10/20/20 0350 NA -- 135 135 138 POTASSIUM -- 3.9 4.2 3.6 CHLORIDE -- 100 103 106 CO2 -- 27 29 28 BUN -- 7 7 7 CR 0.70 0.64* 0.78 0.83 ANIONGAP -- 8 3 4 JOYCE -- 8.6 8.7 8.9 GLC -- 92 88 108* , Results for orders placed or performed during the hospital encounter of 10/20/20 XR Abdomen 1 View Narrative EXAM: XR ABDOMEN 1 VIEW LOCATION: [facility] DATE/TIME: 10/20/2020 4:00 AM INDICATION: abdominal pain COMPARISON: None. Impression IMPRESSION: Negative abdomen. Bowel gas pattern is normal. Nothing for obstruction or free air. No evidence for renal stones. XR Abdomen 1 View Narrative Exam: XR ABDOMEN 1 VIEW, 10/22/2020 5:40 PM Indication: abd distention Comparison: 10/20/2020 XR abdomen Findings: Portable, supine view of the abdomen. Air-filled mild distention of transverse colon, measuring up to 6.7 cm. No pneumatosis or portal venous gas. Lung bases are clear. Soft tissues and osseous structures are unremarkable. Impression Impression: Air-filled mild distention of transverse colon, concerning for early adynamic ileus. I have personally reviewed the examination and initial interpretation and I agree with the findings. GILBERTO ENRIQUEZ MD Discharge Medications Discharge Medication List as of 10/23/2020 12:00 PM START taking these medications Details acetaminophen (TYLENOL) 325 MG tablet Take 2 tablets (650 mg) by mouth every 6 hours as needed for mild pain, fever or headaches, Disp-100 tablet, R-3, E-Prescribe bisacodyl (DULCOLAX) [address] 1 suppository (10 mg) rectally daily as needed for constipation, Disp-10 suppository, R-0, E-Prescribe oxyCODONE (ROXICODONE) 5 MG tablet Take 1 tablet (5 mg) by mouth every 6 hours as needed for moderate to severe pain, Disp-18 tablet, R-0, Local Print polyethylene glycol (MIRALAX) 17 GM/Dose powder Take 17 g by mouth daily as needed for constipation,Disp-510 g, R-0, E-Prescribe simethicone (MYLICON) 80 MG chewable tablet Take 1 tablet (80 mg) by mouth every 6 hours as needed for cramping or other (bloating), Disp-30 tablet, R-0, E-Prescribe CONTINUE these medications which have NOT CHANGED Details escitalopram (LEXAPRO) 20 MG tablet Take 20 mg by mouth daily, Historical multivitamin (CENTRUM SILVER) tablet Take 1 tablet by mouth daily , Historical omeprazole (PRILOSEC) [address] capsule Take 20 mg by mouth daily, Historical Allergies Allergies Allergen Reactions ??? Pcn [Penicillins] Unknown reaction as child documented in this encounter Medications at Time of Discharge Medication Sig Dispensed Refills Start Date End Date acetaminophen Take 2 tablets (650 100 tablet 3 10/23/2020 (TYLENOL) 325 MG mg) by mouth every 6 tabletIndications: hours as needed for Alcohol-induced acute mild pain, fever or pancreatitis, headaches unspecified complication status bisacodyl (DULCOLAX) Place 1 suppository 10 suppository 0 10 MG (10 mg) rectally suppositoryIndications daily as needed for : Alcohol-induced constipation acute pancreatitis, unspecified complication status escitalopram (LEXAPRO) Take 20 mg by mouth 0 20 MG tablet daily multivitamin (CENTRUM Take 1 tablet by 0 SILVER) tablet mouth daily omeprazole (PRILOSEC) Take 20 mg by mouth [address] capsule daily oxyCODONE (ROXICODONE) Take 1 tablet (5 mg) 18 tablet 0 5 MG by mouth every 6 tabletIndications: hours as needed for Alcohol-induced acute moderate to severe pancreatitis, pain unspecified complication status polyethylene glycol Take 17 g by mouth 510 g 0 10/24/19 21 (MIRALAX) 17 GM/Dose daily as needed for powderIndications: constipation Alcohol-induced acute pancreatitis, unspecified complication status simethicone (MYLICON) Take 1 tablet (80 30 tablet 0 021 80 MG chewable mg) by mouth every 6 tabletIndications: hours as needed for Alcohol-induced acute cramping or other pancreatitis, (bloating) unspecified complication status documented as of this encounter Progress Notes Andra Roper PA - 10/22/2020 7:49 PM CDT Medicine Cross Cover Note Contacted by nursing regarding increased abdominal pain, nausea, and lack of flatus/BM after pain related to pancreatitis had previously been improving. AXR shows air-filled mild distention of transverse colon, concerning for early adynamic ileus. Made patient NPO. Reordered IV pain meds to be used in place of oxycodone but at lower/less frequent dosing and advised that patient limit all opioids as able. Reeval abdominal exam and antegrade bowel function in AM, sooner if acute changes arise. Andra Roper PA-C Hospitalist Service Contact information available via [facility] Paging/Directory Chetan Villasenor MD - 10/22/2020 4:19 PM CDT [facility] Medicine Progress Note - Hospitalist Service, Federico 9 Date of Admission: 10/20/2020 Assessment & Plan Juan Ramon Franco is a 45 year old male admitted on 10/20/2020. He was admitted for acute pancreatitis and alcohol withdrawal due to alcohol relapse related to bereavement on the 1yr anniversary of of daughter at 1 month age. ?? SIRS without active infection due to Acute pancreatitis Acute EtOH pancreatitis - Patient presented to the emergency department the day prior to admission with elevated lipase and abdominal pain. On the morning of his admission he awoke with severe pain and his lipase was found tohave increased to 3500. - Cont Dilaudid for pain control (PALLIATIVE MEDICINE PHYSICIAN) - Added OxyIR PRN - ADAT - Cont IVF for now Alcohol withdrawal Patient was admitted initially to the detox unit. Patient did present with desire for treatment. - CIWA protocol - Valium as needed - high dose gabapentin ?? Alcohol use disorder Patient has been using significant amounts of alcohol and drinking daily. This is related to significant life stressors as it is the 1 year anniversary of his daughter's . He has been sober in thepast but relapsed several months ago unfortunately. -Patient may benefit from continued chem dependence therapy-- pt not interested at present -He may be a good candidate for naltrexone - unlikely candidate at this time -Social work to follow-up with him for possible inpatient chemotherapy if needed Bereavement due to the 1yr anniversary of of daughter at 1 month age. Diet: Advance Diet as Tolerated: Regular Diet Adult DVT Prophylaxis: Enoxaparin (Lovenox) SQ Dangelo Catheter: Not present Central Lines: None Code Status: Full Code Disposition Plan Expected discharge: 10/23/2020 recommended to prior living arrangement once alcohol withdrawal and pancreatitis resolved. The patient's care was discussed with the Bedside Nurse and Patient. Chetan Villasenor MD Hospitalist Service, [address] Securely message with the [employer] Console (learn more here) Text page via [facility] Paging/Directory Please see sign in/sign out for up to date coverage information Clinically Significant Risk Factors Present on Admission 35 minutes of time was spent with the patient. We specifically discussed the current documented clinical status and care coordination with greater than 50% of the time spent on counseling and coordination of care. Interval History No acute events overnight, pain improved, requesting to eat 4 point ROS otherwise unremarkable Data reviewed today: I reviewed all medications, new labs and imaging results over the last 24 hours. I personally reviewed no images or EKG's today. Physical Exam Vital Signs: Temp: 99.2 ??F (37.3 ??C) Temp src: Oral BP: (!) 142/84 Pulse: 108 Resp: 18 SpO2: 94 % O2 Device: None (Room air) Weight: 210 lbs 0 oz General: Alert awake and oriented, no distress, conversational- soft spoken Eyes: Normal pink mucosa with no signs of pallor, no scleral icterus. Neck: No significant lymphadenopathy, no palpable LN, No JVD Heart: Regular rate and rhythm, normal S1, normal S2, no murmurs rubs or gallops, PMI is nondisplaced Peripherally there is no edema Lungs: No increased work of breathing, good effort, lungs are clear to auscultation bilaterally No wheezing or crackles Breathing on room air Abdomen: generalized tender, nondistended, normal active bowel sounds, no palpable masses Extremities: Normal capillary refill, no edema, no clubbing, no cyanosis Neuro: Alert and oriented to person place location and situation Grossly arms and legs are without any focal motor or sensory deficits Gait was not assessed Cranial nerves II through XII are grossly intact Psych: No acute psychosis, good mood, good spirits Data Recent Labs Lab 10/22/20 0741 10/21/20 0735 10/20/20 1545 10/20/20 0350 WBC 11.6* 14.1* -- 8.2 HGB 13.8 15.6 -- 16.0 MCV 99 101* -- 99 PLT 150 166 -- 208 NA 135 135 -- 138 POTASSIUM 3.9 4.2 -- 3.6 CHLORIDE 100 103 -- 106 CO2 27 29 -- 28 BUN 7 7 -- 7 CR 0.64* 0.78 0.75 0.83 ANIONGAP 8 3 -- 4 JOYCE 8.6 8.7 -- 8.9 GLC 92 88 -- 108* ALBUMIN 2.6* 3.2* -- 3.8 PROTTOTAL 6.4* 7.0 -- 7.3 BILITOTAL 0.7 0.7 -- 1.0 ALKPHOS 109 105 -- 120 ALT 34 32 -- 48 AST 38 24 -- 35 LIPASE -- 1,374* -- 3,651* No results found for this or any previous visit (from the past 24 hour(s)). Medications ??? HYDROmorphone ??? lactated ringers 100 mL/hr at 10/22/20 1148 ??? enoxaparin ANTICOAGULANT 40 mg Subcutaneous Q24H ??? escitalopram 20 mg Oral Daily ??? [START ON 10/23/2020] pantoprazole 40 mg Oral QAM AC ??? polyethylene glycol 17 g Oral TID ??? senna-docusate 1 tablet Oral BID Or ??? senna-docusate 2 tablet Oral BID ??? sodium chloride (PF) 3 mL Intracatheter Q8H MALCOLM VILLALBA - 10/22/2020 3:12 PM CDT [facility] SPIRITUAL ASSESSMENT Progress Note [facility] ([place]B REFERRAL SOURCE: Staff referral - bedside nurse Yumiko Patient declined visit at this time; said that tomorrow would be better. PLAN: I will follow up tomorrow. [facility] Services remains available for patient, family, and staff support. Please page the trucking contractor ammonia box tender either via [email or web address] Web (Spiritual Health/[facility]) or by placing a STAT or AIMEE Epic referral for Spiritual Health (which will roll to the trucking contractor pager). Malcolm Villalba Straddle Carrier Operator Pager: [phone] Jackson Lockwood MD - 10/21/2020 3:44 PM CDT [facility] Progress Note - Hospitalist ServiceFederico Date of Admission: 10/20/2020 Assessment & Plan Juan Ramon Franco is a 45 year old male admitted on 10/20/2020. He was admitted for acute pancreatitis and alcohol withdrawal due to alcohol relapse related to bereavement on the 1yr anniversary of of daughter at 1 month age. ?? SIRS without active infection due to Acute pancreatitis Associated with Tachycardia, and low grade temps - Patient presented to the emergency department the day prior to admission with a lipase of 500. On the morning of his admission he awoke with severe pain and his lipase was found to have increased to 3500. This is all likely consistent with excessive alcohol use - Dilaudid for pain control - repeat labs on 10/21 - CLD and conitnue IVF until PO improving. Then wean off PALLIATIVE MEDICINE PHYSICIAN and stop IVF ~24 hr from now - send a peripheral BC in case infection is later presumed?? Alcohol withdrawal Patient was admitted initially to the detox unit. Patient did present with desire for treatment. - CIOH protocol - Valium as needed - high dose gabapentin ?? Alcohol use disorder Patient has been using significant amounts of alcohol and drinking daily. This is related to significant life stressors as it is the 1 year anniversary of his daughter's . He has been sober in themest but relapsed several months ago unfortunately. -Patient may benefit from continued chem dependence therapy-- pt not interested at present -He may be a good candidate for naltrexone - unlikely candidate at this time -Social work to follow-up with him for possible inpatient chemotherapy if needed Bereavement due to the 1yr anniversary of of daughter at 1 month age. Diet: Clear Liquid Diet DVT Prophylaxis: Enoxaparin (Lovenox) SQ Dangelo Catheter: Not present Central Lines: None Code Status: Full Code Disposition Plan Expected discharge: 10/23/2020 recommended to prior living arrangement once alcohol withdrawal and pancreatitis resolved. The patient's care was discussed with the Bedside Nurse and Patient. Jackson Lockwood MD Hospitalist Service, [address] Securely message with the [employer] Console (learn more here) Text page via [facility] Paging/Directory Please see sign in/sign out for up to date coverage information Clinically Significant Risk Factors Present on Admission 35 minutes of time was spent with the patient. We specifically discussed the current documented clinical status and care coordination with greater than 50% of the time spent on counseling and coordination of care. Interval History Seen today for follow up: Alcohol and Pancreatitis, bereavement of daughters anniversary No acute overnight events per patient or patient's family. Wants broth, liquids Okay with current res counselor and ivf Understands current mood state and support was offered He shared a video of his 1 month old daughter with me on his phone As of today/at time of my visit: Patient denies any headache, sore throat Patient denies any sleeping disturbance Patient denies any nausea or vomiting Patient reports + abdominal pain Patient denies any shortness of breath Patient denies any chest pain Patient reports no arm or leg edema Data reviewed today: I reviewed all medications, new labs and imaging results over the last 24 hours. I personally reviewed no images or EKG's today. Physical Exam Vital Signs: Temp: 100.3 ??F (37.9 ??C) Temp src: Oral BP: (!) 159/98 Pulse: (!) 123 Resp: 18 SpO2: 91 % O2 Device: None (Room air) Weight: 210 lbs 0 oz General: Alert awake and oriented, no distress, conversational- soft spoken Eyes: Normal pink mucosa with no signs of pallor, no scleral icterus. Neck: No significant lymphadenopathy, no palpable LN, No JVD Heart: Regular rate and rhythm, normal S1, normal S2, no murmurs rubs or gallops, PMI is nondisplaced Peripherally there is no edema Lungs: No increased work of breathing, good effort, lungs are clear to auscultation bilaterally No wheezing or crackles Breathing on room air Abdomen: generalized tender, nondistended, normal active bowel sounds, no palpable masses Extremities: Normal capillary refill, no edema, no clubbing, no cyanosis Neuro: Alert and oriented to person place location and situation Grossly arms and legs are without any focal motor or sensory deficits Gait was not assessed Cranial nerves II through XII are grossly intact Psych: No acute psychosis, good mood, good spirits Data Recent Labs Lab 10/21/20 0735 10/20/20 1545 10/20/20 0350 10/19/20 1530 WBC 14.1* -- 8.2 7.6 HGB 15.6 -- 16.0 16.4 MCV 101* -- 99 95 PLT 166 -- 208 229 NA 135 -- 138 137 POTASSIUM 4.2 -- 3.6 3.7 CHLORIDE 103 -- 106 107 CO2 29 -- 28 21 BUN 7 -- 7 4* CR 0.78 0.75 0.83 0.66 ANIONGAP 3 -- 4 9 JOYCE 8.7 -- 8.9 8.4* GLC 88 -- 108* 92 ALBUMIN 3.2* -- 3.8 4.0 PROTTOTAL 7.0 -- 7.3 7.6 BILITOTAL 0.7 -- 1.0 0.5 ALKPHOS 105 -- 120 121 ALT 32 -- 48 52 AST 24 -- 35 39 LIPASE 1,374* -- 3,651* 513* No results found for this or any previous visit (from the past 24 hour(s)). Medications ??? HYDROmorphone ??? lactated ringers 125 mL/hr at 10/21/20 1452 ??? enoxaparin ANTICOAGULANT 40 mg Subcutaneous Q24H ??? escitalopram 20 mg Oral Daily ??? famotidine 20 mg Intravenous Q12H ??? pantoprazole (PROTONIX) IV 40 mg Intravenous Daily with breakfast ??? polyethylene glycol 17 g Oral TID ??? senna-docusate 1 tablet Oral BID Or ??? senna-docusate 2 tablet Oral BID ??? sodium chloride (PF) 3 mL Intracatheter Q8H Micheal Boothe RN - 10/21/2020 6:30 AM CDT BP 138/85 (BP Location: Left arm) Pulse 96 Temp 99.7 ??F (37.6 ??C) (Oral) Resp 18 Wt 95.3 kg (210 lb) SpO2 93% BMI 29.29 kg/m?? Neuro: AOx4, CIWA 2/0 Cardiac: denies chest pain, VSS Respiratory: On RA, WDL GI/: epigastric tenderness, distended/fullness, no BM this shift, voiding without saving Diet/Appetite: NPO except ice Skin: RANDOLPH LDA: PIV infusing LR @ 125 mL/hr Activity: SBA Pain: Pain managed with PALLIATIVE MEDICINE PHYSICIAN dilaudid @ 0.3 [id number], need reminder to use PALLIATIVE MEDICINE PHYSICIAN Plan: Continue POC Jackson Lloyd DO - 10/20/2020 6:15 PM CDT Seen at bedside on arrival to . In a lot of pain, abdominal, with labs showing worsening lipase. Patient states he is not drinking. Increased dilauded during daytime has been ineffective. Placed orders for PALLIATIVE MEDICINE PHYSICIAN pump 0.3 mg q 15 m. 1.2 mg / hour lockout. Continue IVF, NPO Patient states no bowel movement in ~3 days so low threshold for NGT if developing nausea vomiting. Increase miralax from bid to tid. Hold for loose stools or vomiting. LR at 125 ml / hr. Continue CIWA protocol Rest as documented in today's H/P and progress notes. Jackson Lloyd D.O. Internal Medicine, Hospitalist [facility] Pager: [phone] Chetan Owen MD - 10/20/2020 11:30 AM CDT Pt was seen in ER, Status reviewed with ER nurse Admission history and physical from this morning reviewed Pt continues to complain of severe upper abdominal discomfort with nausea and vomiting. Pain is typical of past pancreatitis symptoms. Dilaudid 0.5 mg IV has been insufficient. Exam in the ER Alert, fully oriented, appears very uncomfortable Lungs clear CV regular rhythm Abdomen soft nondistended moderate epigastric tenderness, no rebound or guarding No tremors Assessment Alcoholic pancreatitis. Patient appears to be quite uncomfortable at this time. Plan Increase IV Dilaudid tp 0.5 to 1 mg every 30 minutes as needed Patient may benefit from a PALLIATIVE MEDICINE PHYSICIAN Trial of ketorolac IV Protonix Antiemetics IV fluids Alcohol drawl protocol Admission orders have been placed by Dr. Borja. documented in this encounter H&P Notes Evangelist Borja MD - 10/20/2020 5:10 AM CDT [facility] History and Physical - Hospitalist Service Date of Admission: 10/20/2020 Assessment & Plan Juan Ramon Franco is a 45 year old male admitted on 10/20/2020. He was admitted for acute pancreatitis and alcohol withdrawal. 1. Acute pancreatitis: Patient presented to the emergency department the day prior to admission witha lipase of 500. On the morning of his admission he awoke with severe pain and his lipase was found to have increased to 3500. This is all likely consistent with excessive alcohol use -N.p.o. -We will give 2 L of lactated Ringer's and then will start him on maintenance IV fluids -Dilaudid for pain control - repeat labs on 10/21 2. Alcohol withdrawal: Patient was admitted initially to the detox unit. Patient did present with desire for treatment. -[facility] protocol - Valium as needed - high dose gabapentin 3. Alcohol use disorder: Patient has been using significant amounts of alcohol and drinking daily. 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 -Patient may benefit from continued chem dependence therapy -He may be a good candidate for naltrexone -Social work to follow-up with him for possible inpatient chemotherapy if needed Diet: NPO DVT Prophylaxis: Enoxaparin (Lovenox) SQ Dangelo Catheter: Not present Central Lines: None Code Status: Full Code Disposition Plan Expected discharge: in 2-3 days recommended to to Chem Dep or home depending on patient preference once adequate pain management/ tolerating PO medications. The patient's care was discussed with the Patient. MD Brodie Guerrero [facility] Securely message with the [employer] Console (learn more here) Text page via [employer] Paging/Directory Chief Complaint Abdominal Pain History is obtained from the patient History of Present Illness Juan Ramon Franco is a 45 year old male who was admitted from the detox unit for worsening abdominal pain and was found to have acute pancreatitis. Patient has been increasing in his alcohol use his disease 1 year anniversary of his daughter's . He says he drinks about 10 white claws a day and sometimes adds shots of fireball. He drinks throughout the day and drinks daily. Last drink was yesterday. When he initially presented to the emergency department, his abdominal pain was manageable, his labswere within normal limits with the exception of a lipase of 500 ended the decision was made to admithim to the inpatient detox unit. However the morning of his admission, he awoke with severe abdominal pain and nausea that he felt like was similar to when he had pancreatitis approximately 1 year ago.He was brought back down to the emergency department where he was found to have a lipase of 3500. Hewill be admitted to the internal medicine service for the management of the above problems. Review of Systems The 10 point Review of Systems is negative other than noted in the HPI or here. Past Medical History I have reviewed this patient's medical history and updated it with pertinent information if needed. Past Medical History: Diagnosis Date ??? Anxiety ??? Depressive disorder ??? Pancreatitis Past Surgical History I have reviewed this patient's surgical history and updated it with pertinent information if needed. Past Surgical History: Procedure Laterality Date ??? ORTHOPEDIC SURGERY Social History I have reviewed this patient's social history and updated it with pertinent information if needed. Social History Tobacco Use ??? Smoking status: Current Every Day Smoker Packs/day: 0.50 ??? Smokeless tobacco: Never Used Substance Use Topics ??? Alcohol use: Yes Comment: currently drinking anything, beer or white claws ??? Drug use: No Family History Reviewed and noncontributory Prior to Admission Medications Prior to Admission Medications Prescriptions Last Dose Informant Patient Reported? Taking? escitalopram (LEXAPRO) 20 MG tablet Yes No Sig: Take 20 mg by mouth daily multivitamin (CENTRUM SILVER) tablet Yes No Sig: Take 1-2 tablets by mouth daily omeprazole (PRILOSEC) [address] capsule Yes No Sig: Take 20 mg by mouth daily Facility-Administered Medications: None Allergies Allergies Allergen Reactions ??? Pcn [Penicillins] Unknown reaction as child Physical Exam Vital Signs: Temp: 98.1 ??F (36.7 ??C) Temp src: Oral BP: (!) 141/79 Pulse: 69 Resp: 20 SpO2: 92 % O2 Device: None (Room air) Weight: 210 lbs 0 oz Constitutional: awake, alert, cooperative, appears in severe distress Eyes: non-icteric Respiratory: No increased work of breathing, good air exchange, clear to auscultation bilaterally, no crackles or wheezing Cardiovascular: Normal apical impulse, regular rate and rhythm, normal S1 and S2, no S3 or S4, and no murmur noted GI: soft, tender to moderate palpation, + BS Skin: no bruising or bleeding and normal skin color, texture, turgor Musculoskeletal: There is no redness, warmth, or swelling of the joints. Full range of motion noted.Tone is normal. Neurologic: Awake, alert, oriented to name, place and time. Cranial nerves II- XII are grossly intact. Motor is 5 out of 5 bilaterally. Cerebellar finger to nose, heel to garcia intact. Sensory is intact.Babinski down going, Romberg negative, and gait is normal. Neuropsychiatric: General: aggitated, normal eye contact and poor eye contact Affect: in pain Data Data reviewed today: I reviewed all medications, new labs and imaging results over the last 24 hours. I personally reviewed documented in this encounter ED Notes Filomena Ortega RN - 10/20/2020 3:27 AM CDT Pt was inpatient on 3A, Pt had acute ABD pain. Pt brought to ED. documented in this encounter Miscellaneous Notes Plan of Care - Tor Rausch RN - 10/23/2020 12:12 PM CDT Alert and oriented x 4. Vital signs stable. On room air. Pain managed with oral pain medication. Tolerated regular diet. Intervention/Assessment: Reviewed discharge instruction, removed iv line. Returned belongings/meds. Discharged. Plan of Care - Dede Jackson RN - 10/23/2020 2:57 AM CDT BP 137/85 (BP Location: Right arm) Pulse 81 Temp 99.2 ??F (37.3 ??C) (Oral) Resp 18 Wt 95.3 kg (210 lb) SpO2 95% BMI 29.29 kg/m?? Shift time: 9208-2494 Neuros: A&Ox4. Pt seems anxious. Denies any numbness or tingling. No valium given this shift. Cardiac: Tachy and some HTN but within normal parameters. Respiratory: WDL. Denies any SOB. GI/Gu: Voiding, not saving. Small loose BM this shift x2 per pt report, did not save. Skin/Incisions: No new deficits. Pain: PRN dilaudid given. Diet: NPO. Activity: ind. Plan: Continue with POC. Provider Notification - Dede Jackson RN - 10/22/2020 10:57 PM CDT Installation And Service Technician efrad federico gill cover. Cesar Franco Pt needs something additional to help sleep. Thank you, Dede [phone] Plan of Care - Ashley Truong RN - 10/22/2020 10:08 PM CDT Admit 10/20 for alcohol induced pancreatitis VSS X tachy 100s Neuro: CIWA 6-5 for anxiety nausea and sweatiness, no intervention required Pain: diffuse gas pain and distention rather than pancreatitis pain felt earlier, treated with prn meds CMS: intact Cardiac: WDL Resp: WDL GI/: voiding adequately, + nausea, -BM, -flatus, hypoactive BS, tried enema today without success,abd imaging shows early signs of ileus Wound: skin intact Access: PIV infusing 100 maintenance Activity: Up indep Nutrition: NPO for bowel rest Plan: Continue to monitor Provider Notification - Ashley Truong RN - 10/22/2020 7:17 PM CDT [id number] Franco Pt c/o increased pain in abd/nausea, AXR shows early ileus. Pt currently on reg diet and oral oxy. Let me know if [place] [id number] Provider Notification - Ashley Truong RN - 10/22/2020 4:38 PM CDT [id number] [id number] franco Pty becoming increasingly nauseas, abd distended, -BM -flatus faint BS for 3 days. Simethicone, suppository, and now enema with no success. Maybe abd XR? [place] [id number] Plan of Care - Yulisa Espinoza RN - 10/22/2020 2:42 PM CDT BP (!) 147/92 (BP Location: Right arm) Pulse 92 Temp 99.5 ??F (37.5 ??C) (Oral) Resp 18 Wt 95.3 kg (210 lb) SpO2 94% BMI 29.29 kg/m?? Patient reports pain is tolerable with Oxycodone, states he is having a lot of gas pain. Abdomen soft with hypoactive bowel sounds, patient reports he is passing small amount of gas, enema given. CIWA of 2 this shift. Voiding and not saving. Up independently. Tolerating regular diet with very little appetite. Continue with POC. Plan of Care - Dede Jackson RN - 10/22/2020 5:42 AM CDT BP (!) 147/98 (BP Location: Right arm) Pulse 111 Temp 100.1 ??F (37.8 ??C) (Oral) Resp 16 Wt95.3 kg (210 lb) SpO2 92% BMI 29.29 kg/m?? Shift time: 4427-5194 Neuros: A&Ox4. Denies any numbness or tingling. Gave PRN oral valium x2. Cardiac: Tachy and some HTN but within normal parameters. Respiratory: WDL. Denies any SOB. Does sat in the lower 90's. GI/Gu: Voiding, not saving. No BM this shift. PRN suppository giving. Skin/Incisions: No new deficits. . Pain: PALLIATIVE MEDICINE PHYSICIAN pump 0.3 Q 10 minutes. Diet: Clears. Activity: ind. Plan: Continue with POC. Provider Notification - Dede Jackson RN - 10/21/2020 9:39 PM CDT Installation And Service Technician taylor henderson. 7b rm [id number] Cesar Franco Pt is asking for a suppository. Thank you, Dede [phone] Plan of Care - Ashley Truong RN - 10/21/2020 6:32 PM CDT 3-7 p Admit 10/20 for alcohol induced pancreatitis VSS X tachy 100s Tmax 100.8 Neuro: anxious, sweaty, antsy, CIWA of 10 valium given with improvement Pain: treated with dilaudid PALLIATIVE MEDICINE PHYSICIAN 0.3/10 CMS: some on and off trembling Cardiac: WDL Resp: WDL GI/: voiding adequately, c/o gas pain and bloating, int nausea Wound: skin intact Access: PIV infusing 100 maintenance Activity: Up indep Nutrition: clears Plan: Continue to monitor Plan of Care - Yulisa Espinoza RN - 10/21/2020 3:00 PM CDT BP (!) 159/98 (BP Location: Left arm) Pulse (!) 123 Temp 100.3 ??F (37.9 ??C) (Oral) Resp 18 Wt 95.3 kg (210 lb) SpO2 91% BMI 29.29 kg/m?? T max 100.8 recheck 100.3. Patient reports pain is tolerable with PALLIATIVE MEDICINE PHYSICIAN Dilaudid 0.3 every 10 min, with a 0.5 mg bump. Abdomen soft, slightly distended with bowel sounds present, patient reports he isn'tpassing gas and no BM this shift. Suppository requested per patient. Tolerating clear liquid diet. Up independently. CIWA of 1 this shift. Provider Notification - Yulisa Espinoza RN - 10/21/2020 8:12 AM CDT Paged provider at #[phone] regarding pain and BP of 155/103, HR 117 Plan of Care - Micheal Boothe RN - 10/21/2020 1:44 AM CDT Problem: Pain Acute Goal: Acceptable Pain Control and Functional Ability Outcome: No Change Intervention: Develop Pain Management Plan Recent Flowsheet Documentation Taken 10/21/2020 0036 by Micheal Boothe RNinformation engineer Interventions: pain pump in use PALLIATIVE MEDICINE PHYSICIAN in placed, need constant reminder to use PALLIATIVE MEDICINE PHYSICIAN Plan of Care - Stephen Lange RN - 10/20/2020 10:21 PM CDT Vitals: 10/20/20 1330 10/20/20 1445 10/20/20 1536 10/20/20 1954 BP: (!) 164/105 (!) 175/95 (!) 149/79 BP Location: Right arm Left arm Pulse: 60 62 72 Resp: 14 16 18 Temp: 98.1 ??F (36.7 ??C) 96.9 ??F (36.1 ??C) 99 ??F (37.2 ??C) TempSrc: Oral Oral Oral SpO2: 93% 94% 97% 93% Weight: 45 years old male came from [place] ED, history of acute alcohol withdrawal excessive alcohol use, complain of sever abdominal pain, nausea and vomiting, pt on arrival appears uncomfortable, Epigastric tenderness, rated pain 10/10, compazine and IV dilaudid 0.5 given, that was insufficient, paged, started PALLIATIVE MEDICINE PHYSICIAN dilaudid 0.3 Q 15, Zofran given at 2220, no emesis, CIWA score 3. Pt stated wants PALLIATIVE MEDICINE PHYSICIAN basal rate, pt lemos resting comfortably, if needed later, please let MD know, Expected discharge to [facility] once adequate pain control, LR at 125 ml/hr, Voided not saved, no BM, continue with plan of care. Plan of Care - Stephen Lange RN - 10/20/2020 10:17 PM CDT Admitted/transferred from: [place] ED 2 RN skin assessment completed by Stephen Lange RN, Skin assessment finding, pt refused assessment at this time due to pain per pt Interventions/actions: Will reassess tomorrow, Pharmacy-Admission Medication History - Renetta Dewitt RPH - 10/20/2020 4:00 PM CDT Admission Medication History Completed by Pharmacy See [facility] Admission Navigator for allergy information, preferred outpatient pharmacy, prior to admission medications and immunization status. Medication History Sources: ??? Patient ??? SureScript Changes made to [facility] medication list (reason): ??? Added: None ??? Deleted: None ??? Changed: None Additional Information: ??? Dispense record shows fills for disulfiram, gabapentin, lorazepam, amlodipine, diazepam in the past year - patient confirmed that he is no longer taking these. Prior to Admission medications Medication Sig Last Dose Taking? Auth Provider escitalopram (LEXAPRO) 20 MG tablet Take 20 mg by mouth daily 10/19/2020 Yes Reported, Patient multivitamin (CENTRUM SILVER) tablet Take 1 tablet by mouth daily 10/19/2020 Yes Unknown, Entered By History omeprazole (PRILOSEC) [address] capsule Take 20 mg by mouth daily 10/19/2020 Yes Reported, Patient Date completed: 10/20/20 Medication history completed by: Renetta Dewitt, PharmD, [facility] 10/20/2020 4:02 PM documented in this encounter Plan of Treatment Not on filedocumented as of this encounter Procedures Procedure Name Priority Date/Time Associated Comments Diagnosis PLATELET COUNT Routine 10/23/2020 7:31 AM Results for this CDT procedure are i n the results section. CREATININE Routine 10/23/2020 7:31 AM Results f or this CDT procedure are i n the results section. XR ABDOMEN 1 VIEW Routine 10/22/2020 5:40 PM Resu lts for this CDT procedure are i n the results section. PHOSPHORUS Routine 10/22/2020 7:41 AM Results f or this CDT procedure are i n the results section. MAGNESIUM Routine 10/22/2020 7:41 AM Results f or this CDT procedure are i n the results section. COMPREHENSIVE Routine 10/22/2020 7:41 AM Results for this METABOLIC PANEL CDT procedure ar e in the results section. CBC WITH PLATELETS Routine 10/22/2020 7:41 AM Res ults for this CDT procedure are i n the results section. BLOOD CULTURE Routine 10/21/2020 11:19 Results fo r this AM CDT procedure are i n the results section. BLOOD CULTURE Routine 10/21/2020 11:13 Results fo r this AM CDT procedure are i n the results section. LACTIC ACID WHOLE STAT 10/21/2020 8:24 AM Resu lts for this BLOOD CDT procedure are i n the results section. LIPASE Routine 10/21/2020 7:35 AM Results f or this CDT procedure are i n the results section. COMPREHENSIVE Routine 10/21/2020 7:35 AM Results for this METABOLIC PANEL CDT procedure ar e in the results section. CBC WITH PLATELETS Routine 10/21/2020 7:35 AM Res ults for this CDT procedure are i n the results section. PHOSPHORUS STAT 10/20/2020 3:45 PM Results f or this CDT procedure are i n the results section. MAGNESIUM STAT 10/20/2020 3:45 PM Results f or this CDT procedure are i n the results section. CREATININE Routine 10/20/2020 3:45 PM Results f or this CDT procedure are i n the results section. XR ABDOMEN 1 VIEW STAT 10/20/2020 4:05 AM Resu lts for this CDT procedure are i n the results section. PHOSPHORUS STAT 10/20/2020 3:50 AM Results f or this CDT procedure are i n the results section. LIPASE STAT 10/20/2020 3:50 AM Results f or this CDT procedure are i n the results section. LACTIC ACID WHOLE STAT 10/20/2020 3:50 AM Resu lts for this BLOOD CDT procedure are i n the results section. COMPREHENSIVE STAT 10/20/2020 3:50 AM Results for this METABOLIC PANEL CDT procedure ar e in the results section. CBC WITH PLATELETS STAT 10/20/2020 3:50 AM Res ults for this CDT procedure are i n the results section. documented in this encounter Results Creatinine (10/23/2020 7:31 AM CDT) P athologist Signature Creatinine 0.70 0.66 - 1.25 10/23/2020 [facility] mg/dL 8:17 AM CDT GFR Estimate >90 >60 10/23/2020 [facility] mL/min/1.73 8:17 AM CDT m2 Comment: As of September 15, 2020, eGFR is ca lculated by the CKD-EPI creatinine equation, without race adjustment. eGFR can be inf luenced by muscle mass, exercise, and diet. The reported eGFR is an estimation only and is only applicable if the renal function is stable. Specimen Anatomical Collection Method / Collection Time Recei alberta Time (Source) Location / Volume Laterality Blood STRUCTURE OF LEFT Venipuncture / 10/23/2020 7:31 10/23 7:45 UPPER LIMB / Unknown AM CDT AM CDT Unknown Evangelist Borja MD LAB - BLOOD ORDERABLES Performing Organization Address City/[facility]/ZIP Code Phon [place] [address] Lab [address] [facility], [address] [place] [address], Lab [facility] [address] [facility], [address] Platelet count (10/23/2020 7:31 AM CDT) P athologist Signature Platelet Count 159 150 - 450 10/23/2020 [facility] 10e3/uL 7:51 AM CDT Specimen Anatomical Collection Method / Collection Time Recei alberta Time (Source) Location / Volume Laterality Blood STRUCTURE OF LEFT Venipuncture / 10/23/2020 7:31 10/23 7:45 UPPER LIMB / Unknown AM CDT AM CDT Unknown Evangelist Borja MD LAB - BLOOD ORDERABLES Performing Organization Address City/[facility]/ZIP Code [place] [address] Lab [address] [facility], [address] [place] [address], Lab [address], [address] XR Abdomen 1 View (10/22/2020 5:40 PM CDT) Anatomical Region Laterality Modality Abdomen/Pelvis Computed Radiography Specimen (Source) Anatomical Location Collection Method / Collectio n Time Received Time / Laterality Volume Impressions 10/22/2020 7:07 PM CDT Impression: Air-filled mild distention of transverse colon, concerning for early adynamic ileus. I have personally reviewed the examinati on and initial interpretation and I agree with the findings. GILBERTO ENRIQUEZ MD Narrative 10/22/2020 7:07 PM CDT Exam: XR ABDOMEN 1 VIEW, 10/22/2020 5:40 PM Indication: abd distention Comparison: 10/20/2020 XR abdomen Findings: Portable, supine view of ??the abdomen. Air-filled mild distention of transverse colon, measuring up to 6.7 cm . No pneumatosis or portal venous gas. Lung bases are clear. Soft t issues and osseous structures are unremarkable. Procedure Note Gilberto Enriquez MD - 10/22/2020Formattin g of this note might be different from the original. Exam: XR ABDOMEN 1 VIEW, 10/22/2020 5:40 PM Indication: abd distention Comparison: 10/20/2020 XR abdomen Findings: Portable, supine view of the abdomen. r-filled mild distention of transverse colon, measuring up to 6.7 cm . No pneumatosis or portal venous gas. Lung bases are clear. Soft t issues and osseous structures are unremarkable. Impression: Air-filled mild distention o f transverse colon, concerning for early adynamic ileus. I have personally reviewed the examinati on and initial interpretation and I agree with the findings. GILBERTO ENRIQUEZ MD Chetan Villasenor MD IMG DIAGNOSTIC IMAGING ORDER BENJI (ABNORMAL) Phosphorus (10/22/2020 7:41 AM CDT) athologist Signature Phosphorus 2.2 (L) 2.5 - 4.5 10/22/2020 [facility] mg/dL 8:57 AM CDT Specimen Anatomical Collection Method / Collection Time Recei alberta Time (Source) Location / Volume Laterality Blood STRUCTURE OF RIGHT Venipuncture / 10/22/2020 7:41 10/06 8:23 HAND / Unknown Unknown AM CDT AM CDT Jackson Lockwood MD LAB - BLOOD ORDERABLES Performing Organization Address City/State/ZIP Code [place] [address] Lab [address] [facility], [address] [place] [address], Lab [place] [address] [facility] [address], [address] Magnesium (10/22/2020 7:41 AM CDT) athologist Signature Magnesium 2.3 1.6 - 2.3 10/22/2020 [facility] mg/dL 8:57 AM CDT Specimen Anatomical Collection Method / Collection Time Recei alberta Time (Source) Location / Volume Laterality Blood STRUCTURE OF RIGHT Venipuncture / 10/22/2020 7:41 0809/2020 8:23 HAND / Unknown Unknown AM CDT AM CDT Jackson Lockwood MD LAB - BLOOD ORDERABLES Performing Organization Address City/State/ZIP Code Phon [place] [address] Lab [address] [facility] [address] Building, [address] [place] [address], Lab [place] [address] [facility], [address] (ABNORMAL) Comprehensive metabolic panel (10/22/2020 7:41 AM CDT) [facility] gist Method Time Signature Sodium 135 133 - 144 10/22/2020 [facility] mmol/L 8:57 AM CDT Potassium 3.9 3.4 - 5.3 10/22/2020 [facility] mmol/L 8:57 AM CDT Chloride 100 94 - 109 10/22/2020 [facility] mmol/L 8:57 AM CDT Carbon Dioxide 27 20 - 32 10/22/2020 [facility] (CO2) mmol/L 8:57 AM CDT Anion Gap 8 3 - 14 10/22/2020 [facility] mmol/L 8:57 AM CDT Urea Nitrogen 7 7 - 30 10/22/2020 [facility] mg/dL 8:57 AM CDT Creatinine 0.64 (L) 0.66 - 10/22/2020 [facility] 1.25 8:57 AM CDT mg/dL Calcium 8.6 8.5 - 10/22/2020 [facility] 10.1 8:57 AM CDT mg/dL Glucose 92 70 - 99 10/22/2020 [facility] mg/dL 8:57 AM CDT Alkaline 109 40 - 150 10/22/2020 [facility] Phosphatase U/L 8:57 AM CDT AST 38 0 - 45 10/22/2020 [facility] U/L 8:57 AM CDT ALT 34 0 - 70 10/22/2020 [facility] U/L 8:57 AM CDT Protein Total 6.4 (L) 6.8 - 8.8 10/22/2020 [facility] g/dL 8:57 AM CDT Albumin 2.6 (L) 3.4 - 5.0 10/22/2020 [facility] g/dL 8:57 AM CDT Bilirubin Total 0.7 0.2 - 1.3 10/22/2020 [facility] mg/dL 8:57 AM CDT GFR Estimate >90 >60 10/22/2020 [facility] mL/min/1. 8:57 AM CDT 73m2 Comment: As of September 15, 2020, eGFR is ca lculated by the CKD-EPI creatinine equation, without race adjustment. eGFR can be inf luenced by muscle mass, exercise, and diet. The reported eGFR is an estimation only and is only applicable if the renal function is stable. Specimen Anatomical Collection Method / Collection Time Recei alberta Time (Source) Location / Volume Laterality Blood STRUCTURE OF RIGHT Venipuncture / 10/22/2020 7:41 10/06 8:23 HAND / Unknown Unknown AM CDT AM CDT Jackson Lockwood MD LAB - BLOOD ORDERABLES Performing Organization Address City/State/ZIP Code Phon [place] [address] Lab [address] [facility], [address] [place] [address], Lab [facility] [address] [facility], [address] (ABNORMAL) CBC with platelets (10/22/2020 7:41 AM CDT) [facility] Method Time Signature WBC Count 11.6 (H) 4.0 - 11.0 10/22/2020 [facility] 10e3/uL 8:37 AM CDT RBC Count 4.16 (L) 4.40 - 10/22/2020 [facility] 5.90 8:37 AM CDT 10e6/uL Hemoglobin 13.8 13.3 - 10/22/2020 [facility] 17.7 g/dL 8:37 AM CDT Hematocrit 41.0 40.0 - 10/22/2020 [facility] 53.0 % 8:37 AM CDT MCV 99 78 - 100 10/22/2020 [facility] fL 8:37 AM CDT MCH 33.2 (H) 26.5 - 10/22/2020 [facility] 33.0 pg 8:37 AM CDT MCHC 33.7 31.5 - 10/22/2020 [facility] 36.5 g/dL 8:37 AM CDT RDW 14.0 10.0 - 10/22/2020 [facility] 15.0 % 8:37 AM CDT Platelet Count 150 150 - 450 10/22/2020 [facility] 10e3/uL 8:37 AM CDT Specimen Anatomical Collection Method / Collection Time Recei alberta Time (Source) Location / Volume Laterality Blood STRUCTURE OF RIGHT Venipuncture / 10/22/2020 7:41 0809/2020 8:23 HAND / Unknown Unknown AM CDT AM CDT Jackson Lockwood MD LAB - BLOOD ORDERABLES Performing Organization Address City/[facility]/ZIP Code Phon e [place] [address] Lab [address] [facility], [address] [place] [address], Lab [place] [address] [facility], [address] Blood Culture Arm, Left (10/21/2020 11:19 AM CDT) P athologist Signature Culture No Growth 10/26/2020 [facility] 12:31 PM CDT LABORATORY Specimen Anatomical Collection Method / Collection Time Recei alberta Time (Source) Location / Volume Laterality Blood STRUCTURE OF LEFT Venipuncture / 10/21/2020 11:19 0808/2020 UPPER LIMB / Unknown AM CDT 11:42 AM CDT Unknown Jackson Lockwood MD LAB - MICRO GENERAL ORDERABL ES Performing Organization Address City/State/ZIP Code Phon e Number [facility] [place] [address] Diag. Lab [address] [facility], [address] [facility] Infectious [place], [place] [phone] Diseases Diagnostic [id number], [facility] Lab (IDDL) [address] [facility] [facility], Room D297 Blood Culture Hand, Right (10/21/2020 11:13 AM CDT) P athologist Signature Culture No Growth 10/26/2020 [facility] IDD 12:31 PM CDT LABORATORY Specimen Anatomical Collection Method / Collection Time Recei alberta Time (Source) Location / Volume Laterality Blood STRUCTURE OF RIGHT Venipuncture / 10/21/2020 11:13 HAND / Unknown Unknown AM CDT 11:42 AM CDT Jackson Lockwood MD LAB - MICRO GENERAL ORDERABL ES Performing Organization Address City/State/ZIP Code Phon e Number [facility] LABORATORY [facility] [place] [address] Diag. Lab [address] [facility], [address]297 [facility]ORAT[facility] Infectious [place], [place] [phone] Diseases Diagnostic [phone], [facility] Lab (IDDL) [address] [facility], Room D297 Lactic Acid STAT (10/21/2020 8:24 AM CDT) athologist Signature Lactic Acid 1.0 0.7 - 2.0 10/21/2020 [facility] mmol/L 8:41 AM CDT Specimen Anatomical Collection Method / Collection Time Recei alberta Time (Source) Location / Volume Laterality Blood STRUCTURE OF LEFT Venipuncture / 10/21/2020 8:24 10/21 8:38 UPPER LIMB / Unknown AM CDT AM CDT Unknown Jackson Lockwood MD LAB - BLOOD ORDERABLES Performing Organization Address City/State/ZIP Code Phon e [place] [address] [phone] Lab [address] [facility], Room 3-580 [place] [address], Lab [facility] [address] [facility], Room 3580 (ABNORMAL) CBC with platelets (10/21/2020 7:35 AM CDT) Patholo gist Method Time Signature WBC Count 14.1 (H) 4.0 - 11.0 10/21/2020 [facility] 10e3/uL 7:51 AM CDT RBC Count 4.70 4.40 - 10/21/2020 [facility] 5.90 7:51 AM CDT 10e6/uL Hemoglobin 15.6 13.3 - 10/21/2020 [facility] 17.7 g/dL 7:51 AM CDT Hematocrit 47.3 40.0 - 10/21/2020 [facility] 53.0 % 7:51 AM CDT MCV 101 (H) 78 - 100 10/21/2020 [facility] fL 7:51 AM CDT MCH 33.2 (H) 26.5 - 10/21/2020 [facility] 33.0 pg 7:51 AM CDT MCHC 33.0 31.5 - 10/21/2020 [facility] 36.5 g/dL 7:51 AM CDT RDW 14.2 10.0 - 10/21/2020 [facility] 15.0 % 7:51 AM CDT Platelet Count 166 150 - 450 10/21/2020 [facility] 10e3/uL 7:51 AM CDT Specimen Anatomical Collection Method / Collection Time Recei alberta Time (Source) Location / Volume Laterality Blood STRUCTURE OF LEFT Venipuncture / 10/21/2020 7:35 10/21 7:42 UPPER LIMB / Unknown AM CDT AM CDT Unknown Evangelist Borja MD LAB - BLOOD ORDERABLES Performing Organization Address City/State/ZIP Code Phon e [place] [address] [phone] Lab 500 [facility], Room 35[address] [place] [address], Lab [place] [address] [facility], Room 3580 (ABNORMAL) Lipase (10/21/2020 7:35 AM CDT) P athologist Signature Lipase 1,374 (H) 73 - 393 10/21/2020 [facility] U/L 8:11 AM CDT Specimen Anatomical Collection Method / Collection Time Recei alberta Time (Source) Location / Volume Laterality Blood STRUCTURE OF LEFT Venipuncture / 10/21/2020 7:35 10/21 7:42 UPPER LIMB / Unknown AM CDT AM CDT Unknown Evangelist Borja MD LAB - BLOOD ORDERABLES Performing Organization Address City/State/ZIP Code Phon e [place] [address] Lab 500 [facility] [address] [facility], Room 3[address] [place] [address], Lab [place] [address] [facility], Room 3580 (ABNORMAL) Comprehensive metabolic panel (10/21/2020 7:35 AM CDT) [facility] Method Time Signature Sodium 135 133 - 144 10/21/2020 [facility] mmol/L 8:15 AM CDT Potassium 4.2 3.4 - 5.3 10/21/2020 [facility] mmol/L 8:15 AM CDT Chloride 103 94 - 109 10/21/2020 [facility] mmol/L 8:15 AM CDT Carbon Dioxide 29 20 - 32 10/21/2020 [facility] (CO2) mmol/L 8:15 AM CDT Anion Gap 3 3 - 14 10/21/2020 [facility] mmol/L 8:15 AM CDT Urea Nitrogen 7 7 - 30 10/21/2020 [facility] mg/dL 8:15 AM CDT Creatinine 0.78 0.66 - 10/21/2020 [facility] 1.25 mg/dL 8:15 AM CDT Calcium 8.7 8.5 - 10.1 10/21/2020 [facility] mg/dL 8:15 AM CDT Glucose 88 70 - 99 10/21/2020 [facility] mg/dL 8:15 AM CDT Alkaline 105 40 - 150 10/21/2020 [facility] Phosphatase U/L 8:15 AM CDT AST 24 0 - 45 U/L 10/21/2020 [facility] 8:15 AM CDT ALT 32 0 - 70 U/L 10/21/2020 [facility] 8:15 AM CDT Protein Total 7.0 6.8 - 8.8 10/21/2020 [facility] g/dL 8:15 AM CDT Albumin 3.2 (L) 3.4 - 5.0 10/21/2020 [facility] g/dL 8:15 AM CDT Bilirubin Total 0.7 0.2 - 1.3 10/21/2020 [facility] mg/dL 8:15 AM CDT GFR Estimate >90 >60 10/21/2020 [facility] mL/min/1.7 8:15 AM CDT 3m2 Comment: As of September 15, 2020, eGFR is ca lculated by the CKD-EPI creatinine equation, without race adjustment. eGFR can be inf luenced by muscle mass, exercise, and diet. The reported eGFR is an estimation only and is only applicable if the renal function is stable. Specimen Anatomical Collection Method / Collection Time Recei alberta Time (Source) Location / Volume Laterality Blood STRUCTURE OF LEFT Venipuncture / 10/21/2020 7:35 10/21 7:42 UPPER LIMB / Unknown AM CDT AM CDT Unknown Evangelist Borja MD LAB - BLOOD ORDERABLES Performing Organization Address City/State/ZIP Code Phon [place] [address] Lab 500 [facility], Room 3[address] [place] [address], Lab [place] 500 [facility], Room 3580 Phosphorus (10/20/2020 3:45 PM CDT) P athologist Signature Phosphorus 2.8 2.5 - 4.5 10/20/2020 [facility] mg/dL 4:33 PM CDT Specimen Anatomical Collection Method / Collection Time Recei alberta Time (Source) Location / Volume Laterality Blood STRUCTURE OF LEFT Venipuncture / 10/20/2020 3:45 10/20 4:05 UPPER LIMB / Unknown PM CDT PM CDT Unknown Evangelist Borja MD LAB - BLOOD ORDERABLES Performing Organization Address City/State/ZIP Code Phon [place] [address] Lab [address] [facility], Room 3[address]580 [place] [address], Lab [facility] [address] [facility], Room 3580 (ABNORMAL) Magnesium (10/20/2020 3:45 PM CDT) athologist Signature Magnesium 2.5 (H) 1.6 - 2.3 10/20/2020 [facility] mg/dL 4:33 PM CDT Specimen Anatomical Collection Method / Collection Time Recei alberta Time (Source) Location / Volume Laterality Blood STRUCTURE OF LEFT Venipuncture / 10/20/2020 3:45 10/20 4:05 UPPER LIMB / Unknown PM CDT PM CDT Unknown Evangelist Borja MD LAB - BLOOD ORDERABLES Performing Organization Address City/State/ZIP Code Phon e [place] [address] Lab 500 [facility], Room 3[address] [place] [address], Lab [facility] 500 [facility], Room 3580 Creatinine (10/20/2020 3:45 PM CDT) athologist Signature Creatinine 0.75 0.66 - 1.25 10/20/2020 [facility] mg/dL 4:33 PM CDT GFR Estimate >90 >60 10/20/2020 [facility] mL/min/1.73 4:33 PM CDT m2 Comment: As of September 15, 2020, eGFR is ca lculated by the CKD-EPI creatinine equation, without race adjustment. eGFR can be inf luenced by muscle mass, exercise, and diet. The reported eGFR is an estimation only and is only applicable if the renal function is stable. Specimen Anatomical Collection Method / Collection Time Recei alberta Time (Source) Location / Volume Laterality Blood STRUCTURE OF LEFT Venipuncture / 10/20/2020 3:45 10/20 4:05 UPPER LIMB / Unknown PM CDT PM CDT Unknown Evangelist Borja MD LAB - BLOOD ORDERABLES Performing Organization Address City/[facility]/ZIP Code Phon e Number [place] [address] Lab 500 [facility] [address] [facility], Room 3[address] [place] [address], Lab [place] 500 [facility], Room 3580 XR Abdomen 1 View (10/20/2020 4:05 AM CDT) Anatomical Region Laterality Modality Abdomen/Pelvis Computed Radiography Specimen (Source) Anatomical Collection Method Collection Time Re ceived Time Location / / Volume Laterality 10/20/2020 4:00 AM CDT Impressions 10/20/2020 4:12 AM CDT IMPRESSION: Negative abdomen. Bowel gas pattern is normal. Nothing for obstruction or free air. No evidence for renal stones. Narrative 10/20/2020 4:12 AM CDT EXAM: XR ABDOMEN 1 VIEW LOCATION: [facility] DATE/TIME: 10/20/2020 4:00 AM INDICATION: abdominal pain COMPARISON: None. Procedure Note Kristopher Delgado MD - 10/20/2020F ormatting of this note might be different from the original. EXAM: XR ABDOMEN 1 VIEW LOCATION: [facility] DATE/TIME: 10/20/2020 4:00 AM INDICATION: abdominal pain COMPARISON: None. IMPRESSION: Negative abdomen. Bowel gas pattern is normal. Nothing for obstruction or free air. No evidence for renal stones. Evangelist Borja MD IMG DIAGNOSTIC IMAGING ORDER BENIJ Phosphorus (10/20/2020 3:50 AM CDT) P athologist Signature Phosphorus 3.4 2.5 - 4.5 10/20/2020 [facility] LABORATORY mg/dL 11:35 AM CDT Specimen Anatomical Collection Method / Collection Time Recei alberta Time (Source) Location / Volume Laterality Blood STRUCTURE OF RIGHT Venipuncture / 10/20/2020 3:50 08/07/2020 3:58 UPPER LIMB / Unknown AM CDT AM CDT Unknown Chetan Owen MD LAB - BLOOD ORDERABLES Performing Organization Address City/State/ZIP Code Phon [place] [address] Care Lab [address] [place] [address], Room [address]309 Lactic acid whole blood (10/20/2020 3:50 AM CDT) athologist Signature Lactic Acid 1.0 0.7 - 2.0 10/20/2020 [facility] mmol/L 4:02 AM CDT Specimen Anatomical Collection Method / Collection Time Recei alberta Time (Source) Location / Volume Laterality Blood STRUCTURE OF RIGHT Venipuncture / 10/20/2020 3:50 08/07/2020 3:58 UPPER LIMB / Unknown AM CDT AM CDT Unknown Evangelist Borja MD LAB - BLOOD ORDERABLES Performing Organization Address City/State/ZIP Code [place] [address] Care Lab [address] [place] [address], Room [address]309 (ABNORMAL) Lipase (10/20/2020 3:50 AM CDT) athologist Signature Lipase 3,651 (H) 73 - 393 10/20/2020 [facility] U/L 4:21 AM CDT Specimen Anatomical Collection Method / Collection Time Recei alberta Time (Source) Location / Volume Laterality Blood STRUCTURE OF RIGHT Venipuncture / 10/20/2020 3:50 08/07/2020 3:58 UPPER LIMB / Unknown AM CDT AM CDT Unknown Evangelist Borja MD LAB - BLOOD ORDERABLES Performing Organization Address City/State/ZIP Code Ph[place] [address] Care Lab [address] [place] [address], Room [address]309 CBC with platelets (10/20/2020 3:50 AM CDT) athologist Signature WBC Count 8.2 4.0 - 11.0 10/20/2020 [facility] 10e3/uL 4:01 AM CDT RBC Count 4.86 4.40 - 10/20/2020 [facility] 5.90 4:01 AM CDT 10e6/uL Hemoglobin 16.0 13.3 - 10/20/2020 [facility] 17.7 g/dL 4:01 AM CDT Hematocrit 48.1 40.0 - 10/20/2020 [facility]AT[facility] 53.0 % 4:01 AM CDT MCV 99 78 - 100 10/20/2020 [facility] LAB[facility]AT[facility] fL 4:01 AM CDT MCH 32.9 26.5 - 10/20/2020 [facility] 33.0 pg 4:01 AM CDT MCHC 33.3 31.5 - 10/20/2020 [facility] 36.5 g/dL 4:01 AM CDT RDW 14.4 10.0 - 10/20/2020 [facility] 15.0 % 4:01 AM CDT Platelet Count 208 150 - 450 10/20/2020 [facility] 10e3/uL 4:01 AM CDT Specimen Anatomical Collection Method / Collection Time Recei alberta Time (Source) Location / Volume Laterality Blood STRUCTURE OF RIGHT Venipuncture / 10/20/2020 3:50 10/06 3:58 UPPER LIMB / Unknown AM CDT AM CDT Unknown Evangelist Borja MD LAB - BLOOD ORDERABLES Performing Organization Address City/State/ZIP Code Ph[place] [address] Care Lab [address] [facility], Room M309 (ABNORMAL) Comprehensive metabolic panel (10/20/2020 3:50 AM CDT) [facility] gist Method Time Signature Sodium 138 133 - 144 10/20/2020 [facility] mmol/L 4:20 AM CDT Potassium 3.6 3.4 - 5.3 10/20/2020 [facility] mmol/L 4:20 AM CDT Chloride 106 94 - 109 10/20/2020 [facility] mmol/L 4:20 AM CDT Carbon Dioxide 28 20 - 32 10/20/2020 [facility] (CO2) mmol/L 4:20 AM CDT Anion Gap 4 3 - 14 10/20/2020 [facility] mmol/L 4:20 AM CDT Urea Nitrogen 7 7 - 30 10/20/2020 [facility] mg/dL 4:20 AM CDT Creatinine 0.83 0.66 - 10/20/2020 [facility] 1.25 mg/dL 4:20 AM CDT Calcium 8.9 8.5 - 10.1 10/20/2020 [facility] mg/dL 4:20 AM CDT Glucose 108 (H) 70 - 99 10/20/2020 [facility] mg/dL 4:20 AM CDT Alkaline 120 40 - 150 10/20/2020 [facility] Phosphatase U/L 4:20 AM CDT AST 35 0 - 45 U/L 10/20/2020 [facility] 4:20 AM CDT ALT 48 0 - 70 U/L 10/20/2020 [facility] 4:20 AM CDT Protein Total 7.3 6.8 - 8.8 10/20/2020 [facility] g/dL 4:20 AM CDT Albumin 3.8 3.4 - 5.0 10/20/2020 [facility] g/dL 4:20 AM CDT Bilirubin Total 1.0 0.2 - 1.3 10/20/2020 [facility] mg/dL 4:20 AM CDT GFR Estimate >90 >60 10/20/2020 [facility] mL/min/1.7 4:20 AM CDT 3m2 Comment: As of September 15, 2020, eGFR is ca lculated by the CKD-EPI creatinine equation, without race adjustment. eGFR can be inf luenced by muscle mass, exercise, and diet. The reported eGFR is an estimation only and is only applicable if the renal function is stable. Specimen Anatomical Collection Method / Collection Time Recei alberta Time (Source) Location / Volume Laterality Blood STRUCTURE OF RIGHT Venipuncture / 10/20/2020 3:50 10/06 3:58 UPPER LIMB / Unknown AM CDT AM CDT Unknown Evangelist Borja MD LAB - BLOOD ORDERABLES Performing Organization Address City/State/ZIP Code Phon e Number UR LABORATORY [facility] [place] [address] Care Lab [address] [facility], Room M309 documented in this encounter Visit Diagnoses Diagnosis Acute pancreatitis - Primary Alcohol-induced acute pancreatitis, unsp ecified complication status documented in this encounter Admitting Diagnoses Diagnosis Acute pancreatitis documented in this encounter Administered Medications Inactive Administered Medications - up to 3 most recent administrations Medication Order MAR Action Action Date Dose Rate Site acetaminophen (TYLENOL) tablet 650 Given 10/22/2020 8:43 PM CDT 650 mg mg 650 mg, Oral, EVERY 6 HOURS PRN, mild pain, fever, headaches, Starting on Wed10/21/20 at 1554, Maximum acetaminophen dose from all sources = 75 mg/kg/day not to exceed 4 grams/day. Given 10/22/2020 4:32 PM CDT 650 mg Given 10/21/2020 10:30 PM CDT 650 mg bisacodyl (DULCOLAX) Suppository 10 mg Given 10/21/2020 10:30 PM CDT 10 mg 10 mg, Rectal, DAILY PRN, constipation, Starting on Wed10/21/20 at 2144, Hold for loose stools. diazepam (VALIUM) injection 5-10 mg Given 10/20/2020 7:51 AM CDT 5 mg 5-10 mg, Intravenous, Administer over 1-4 Minutes, EVERY 30 MIN PRN, other, per CIWA-Ar score, Starting on 10/20/20 at 0503, Oral dosing is the preferred route of administration. Dose according to CIWA-Ar Score: For CIWA-Ar Score LESS THAN OR EQUAL TO 7: ~ NO diazepam (VALIUM) is to be given and ~ repeat CIWA-Ar scale in 4 hours and PRN if symptomatic For CIWA-Ar Score 8-12: ~ give diazepam (VALIUM) 10 mg PO or 5 mg IV and ~ repeat CIWA-Ar scale in 2 hours For CIWA-Ar Score 13-15: ~ give diazepam (VALIUM)10 mg PO or 5 mg IV and ~ repeat CIWA-Ar scale in 30 minutes For CIWA-Ar Score GREATER THAN OR EQUAL TO 16: ~ give diazepam (VALIUM) 10mg PO or 10 mg IV and ~ repeat CIWA-Ar scale in 30 minutes Doses should be withheld for nystagmus, sedation, ataxia, dysarthria or respiratory rate less than 12. If dose is being held more than once, provider must be notified. This drug may cause significant respiratory depression. Monitor respiratory status and vital signs carefully for 1 hour after each dose. diazepam (VALIUM) tablet 10 mg Given 10/21/2020 9:26 PM CDT 10 mg 10 mg, Oral, EVERY 30 MIN PRN, other, per CIWA-Ar score, Starting on 10/20/20 at 0503, Oral dosing is the preferred route of administration. Dose according to CIWA-Ar Score: For CIWA-Ar Score LESS THAN OR EQUAL TO 7: ~ NO diazepam (VALIUM) is to be given and ~ repeat CIWA-Ar scale in 4 hours and PRN if symptomatic For CIWA-Ar Score 8-12: ~ give diazepam (VALIUM) 10 mg PO or 5 mg IV and ~ repeat CIWA-Ar scale in 2 hours For CIWA-Ar Score 13-15: ~ give diazepam (VALIUM)10 mg PO or 5 mg IV and ~ repeat CIWA-Ar scale in 30 minutes For CIWA-Ar Score GREATER THAN OR EQUAL TO 16: ~ give diazepam (VALIUM) 10mg PO or 10 mg IV and ~ repeat CIWA-Ar scale in 30 minutes Doses should be withheld for nystagmus, sedation, ataxia, dysarthria or respiratory rate less than 12. If dose is being held more than once, provider must be notified. Given 10/21/2020 7:00 PM CDT 10 mg Given 10/21/2020 4:41 PM CDT 10 mg enoxaparin ANTICOAGULANT (LOVENOX) injection Given 4:34 PM CDT 40 mg 40 mg 40 mg, Subcutaneous, EVERY 24 HOURS, First dose on Wed10/20/20 at 1600, HOLD if platelet count falls below 50% of baseline or less than 100,000/??L and notify provider. Given 10/21/2020 3:58 PM CDT 40 mg Given 10/20/2020 4:42 PM CDT 40 mg escitalopram (LEXAPRO) tablet 20 mg Given 10/23/2020 8:59 AM CDT 20 mg 20 mg, Oral, DAILY, First dose on 10/20/20 at 1600 Given 10/22/2020 7:54 AM CDT 20 mg famotidine (PEPCID) infusion 20 mg New Bag 10/22/2020 4:51 AM CDT 20 mg 100 mL/hr 20 mg, Intravenous, Administer over 15-30 Minutes, at 100-200 mL/hr, EVERY 12 HOURS, First dose on 10/20/20 at 1600 New Bag 10/21/2020 3:58 PM CDT 20 mg 200 mL/hr New Bag 10/21/2020 4:55 AM CDT 20 mg 200 mL/hr flumazenil (ROMAZICON) injection 0.2 mg 0.2 mg, Intravenous, EVERY 1 MIN PRN, be nzodiazepine reversal, Administer over 1 Minutes, Starting on 10/20/20 at 0502 , Give if patient unarousable, RR less than 8, or appears to be approaching respiratory arrest. Gi ve over 15 secs. If inadequate response after 45 seconds, may repeat q1min (MAX total dose: 1 mg). Continue monitoring for a minimum of 2 h ours. Notify MD if administered. Irritant. For ordered IV doses 0.1-1 mg, give IV P ush undiluted. Administer each 0.2mg over 15 seconds. Use with caution in patients on benzodiaze pine therapy. haloperidol lactate (HALDOL) injection 2 .5-5 mg 2.5-5 mg, Intravenous, EVERY 6 HOURS PRN , other, hallucinations, IF unable to take oral, Administer over 1 Minutes, Startin g on 10/20/20 at 0502, For CIWA Visual Disturbance Score 0-3, give NO Haloperid ol For Visual Disturbance Score 4-5, give Haloperidol 2.5 mg IV and repeat scale i n 1 hour For Visual Disturbance Score 6-7, give Haloperidol 5 mg IV and repeat scale in 1 hour MA X: 40 mg in 24 hours For ordered doses up to 5 mg, drug can be give IV Push und iluted over 1 minute. HYDROmorphone (DILAUDID) injection 0.2 m g Given 10/20/2020 6:38 AM CDT 0.2 mg 0.2 mg, Intravenous, EVERY 3 HOURS PRN, moderate to severe pain, Starting on 10/20/20 at 0330 Given 10/20/2020 3:44 AM CDT 0.2 mg HYDROmorphone (DILAUDID) PALLIATIVE MEDICINE PHYSICIAN 0.2 mg/mL Shift Total 10/20/2020 10:00 P M CDT OPIOID NAIVE (age less than 65 years) Continuous Rate: 0 mg/hr, PALLIATIVE MEDICINE PHYSICIAN Dose: 0.3 mg, PALLIATIVE MEDICINE PHYSICIAN Lockout: 15 Minutes, One Hour Limit: 1.2 mg, Clinician Bolus (one time dose): 0 mg, Starting on 10/20/20 at 1700, Hold the dose for analgesic side effects. Notify the provider to assess for uncontrolled pain or analgesic side effects. Do NOT give any additional opioids while on PALLIATIVE MEDICINE PHYSICIAN unless provider authorized., Intravenous New Syringe/Cartridge 10/20/2020 5:17 PM CDT HYDROmorphone (DILAUDID) PALLIATIVE MEDICINE PHYSICIAN 0.2 mg/mL Shift Total 10/22/2020 6:00 AM CDT OPIOID NAIVE (age less than 65 years) Continuous Rate: 0 mg/hr, PALLIATIVE MEDICINE PHYSICIAN Dose: 0.3 mg, PALLIATIVE MEDICINE PHYSICIAN Lockout: 10 Minutes, One Hour Limit: 1.8 mg, Clinician Bolus (one time dose): 0 mg, Starting on Wed10/21/20 at 0830, Hold the dose for analgesic side effects. Notify the provider to assess for uncontrolled pain or analgesic side effects. Do NOT give any additional opioids while on PALLIATIVE MEDICINE PHYSICIAN unless provider authorized., Intravenous Rate/Dose Verify 10/21/2020 9:36 PM CDT Shift Total 10/21/2020 2:49 PM CDT HYDROmorphone (PF) (DILAUDID) injection 0.3 Given 10/23/2020 6:28 AM CDT 0.3 mg mg 0.3 mg, Intravenous, EVERY 4 HOURS PRN, moderate to severe pain, Starting on Wed10/22/20 at 1932, For ordered IV doses 0.1-4 mg give IV Push undiluted. Administer each 2mg over 2-5 minutes. Given 10/23/2020 2:16 AM CDT 0.3 mg Given 10/22/2020 8:37 PM CDT 0.3 mg HYDROmorphone (PF) (DILAUDID) injection 0.5 Given 10/20/2020 4:45 AM CDT 0.5 mg mg 0.5 mg, Intravenous, ONCE, On Wed10/20/20 at 0445, For 1 dose, For ordered IV doses 0.1-4 mg give IV Push undiluted. Administer each 2mg over 2-5 minutes. HYDROmorphone (PF) (DILAUDID) injection 0.5 Given 10/20/2020 3:50 PM CDT 0.5 mg mg 0.5 mg, Intravenous, EVERY 2 HOURS PRN, moderate to severe pain, Starting on Wed10/20/20 at 1531, IF patient cannot take oral opioid OR IF pain not managed with non-pharmacological, non-opioid, or oral opioid interventions if ordered; may use concomitant with non-opioid analgesics. For ordered IV doses 0.1-4 mg give IV Push undiluted. Administer each 2mg over 2-5 minutes. HYDROmorphone (PF) (DILAUDID) injection 0.5 Given 10/20/2020 9:36 AM CDT 0.5 mg mg 0.5 mg, Intravenous, EVERY 2 HOURS PRN, moderate to severe pain, Starting on Wed10/20/20 at 0733, For ordered IV doses 0.1-4 mg give IV Push undiluted. Administer each 2mg over 2-5 minutes. Given 10/20/2020 7:42 AM CDT 0.5 mg HYDROmorphone (PF) (DILAUDID) injection 0.5 Given 10/06 11:27 AM CDT 0.5 mg mg 0.5 mg, Intravenous, EVERY 1 HOUR PRN, moderate to severe pain, Starting on Wed10/20/20 at 1100, For ordered IV doses 0.1-4 mg give IV Push undiluted. Administer each 2mg over 2-5 minutes. HYDROmorphone (PF) (DILAUDID) injection 0.5 Given 10/21/2020 8:59 AM CDT 0.5 mg mg 0.5 mg, Intravenous, ONCE, On Wed10/21/20 at 0830, For 1 dose, For ordered IV doses 0.1-4 mg give IV Push undiluted. Administer each 2mg over 2-5 minutes. HYDROmorphone (PF) (DILAUDID) injection 0.5-1 Given 3:11 PM CDT 0.5 mg mg 0.5-1 mg, Intravenous, EVERY 30 MIN PRN, moderate to severe pain, Starting on 10/20/20 at 1129, For ordered IV doses 0.1-4 mg give IV Push undiluted. Administer each 2mg over 2-5 minutes. Given 10/20/2020 2:16 PM CDT 0.5 mg Given 10/20/2020 12:54 PM CDT 0.5 mg hydrOXYzine (ATARAX) tablet 25 mg Given 10/23/2020 8:58 AM CDT 25 mg 25 mg, Oral, 3 TIMES DAILY PRN, anxiety, Starting on Wed10/21/20 at 1626 Given 10/22/2020 8:43 PM CDT 25 mg Given 10/22/2020 4:33 PM CDT 25 mg ketorolac (TORADOL) injection 30 mg Given 10/20/2020 11:25 AM CDT 30 mg 30 mg, Intravenous, ONCE, On Wed10/20/20 at 1100, For 1 dose, Can cause pain on injection. If ordered intravenously (IV) : administer through a running maintenance fluid over 1 minute followed by a flush. If patient complains of pain on injection, may dilute 15-30 mg in 5 mL and push over 1 to 2 minutes. lactated ringers BOLUS 1,000 mL New Bag 10/20/2020 3:43 AM CDT 1,000 mLs 500 mL/hr Intravenous, 1,000 mL, ONCE, at 500 mL/hr, Administer over 2 Hours, On [place] 10/20/20 at 0330, For 1 dose lactated ringers infusion New Bag 10/20/2020 11:25 AM CDT 125 mL/hr at 125 mL/hr, Intravenous, CONTINUOUS, Please run after bolus is completed, Starting on [place] 10/20/20 at 0330, Until [place] 10/20/20 at 1531 New Bag 10/20/2020 6:36 AM CDT 125 mL/hr lactated ringers infusion New Bag 10/20/2020 3:53 PM CDT 250 mL/hr at 250 mL/hr, Intravenous, CONTINUOUS, Starting on [place] 10/20/20 at 1600, Until [place] 10/20/20 at 1959 lactated ringers infusion Rate/Dose Change 10/21/2020 4:00 PM CDT 100 mL/hr at 125 mL/hr, Intravenous, CONTINUOUS, After additional 1L is completed, Starting on [place] 10/20/20 at 2000, Until Wed10/21/20 at 1556 New Bag 10/21/2020 2:52 PM CDT 125 mL/hr New Bag 10/21/2020 4:58 AM CDT 125 mL/hr lactated ringers infusion New Bag 10/23/2020 2:17 AM CDT 100 mL/hr at 100 mL/hr, Intravenous, CONTINUOUS, After additional 1L is completed, Starting on Wed10/22/20 at 1200, Until Wed10/23/20 at 0918 Restarted 10/22/2020 7:38 PM CDT 100 mL/hr New Bag 10/22/2020 11:48 AM CDT 100 mL/hr melatonin tablet 5 mg Given 10/22/2020 11:24 PM CDT 5 mg 5 mg, Oral, EVERY EVENING PRN, sleep, Starting on 10/20/20 at 0502 naloxone (NARCAN) injection 0.2 mg 0.2 mg, Intravenous, EVERY 2 MIN PRN, op ioid reversal, Starting on 10/20/20 at 1549, Administer intravenous route when available and notify provider when administered. For unintended sedation or respiratory depression if all of the below criteria are met: ~ respiratory rate LES S than or EQUAL to 8. ~SaO2 less than 92% and or/end-tidal CO2 is greater than 50. ~ the patient is receiving an opioid, has unintended sedations assessed as RASS (-3), and is cur rently not on mechanical ventilation. RASS scale moderate (-3) is movement or eye opening to voice but no eye contact. Patient Monitoring Once the patient has demonstrated a response to the naloxone, continue to monitor respiratory rate, depth, oxygen saturation and end-tidal CO2 (if available) every 15 mi nutes x 2, then every 30 minutes x 2, then every 1 hour x 1 after each naloxone dose. Consider tr ansfer to ICU if patient respiratory parameters have not improved after 4 nalox one doses. For ordered IV doses 0.1-2mg give IVP. Give each 0.4mg over 15 seconds in emergency situations. For non-emergent situations further dilu te in 9mL of NS to facilitate titration of response. naloxone (NARCAN) injection 0.2 mg 0.2 mg, Intramuscular, EVERY 2 MIN PRN, opioid reversal, Starting on 10/20/20 at 1549, Administer intramuscular if an int ravenous route is not available and notify provider when administered. For unintend ed sedation or respiratory depression if all of the below criteria are met: ~ respiratory rate LESS than or EQUAL to 8. ~SaO2 less than 92% and or/end-tidal CO2 is greater th an 50. ~ the patient is receiving an opioid, has unintended sedations assessed as RASS (-3), and is currently not on mechanical ventilation. RASS scale moderate (-3) is movement or eye opening to voice but no eye contact. Patient Monitoring Once the patient has demonstrated a response to the naloxone, continue to m onitor respiratory rate, depth, oxygen saturation and end-tidal CO2 (if availab le) every 15 minutes x 2, then every 30 minutes x 2, then every 1 hour x 1 after each naloxone dose. Consider transfer to ICU if patient respiratory parameters have not improved after 4 naloxone doses. For ordered IV doses 0.1-2mg give IVP. Give each 0.4mg over 15 seconds in emergency situations. For non -emergent situations further dilute in 9mL of NS to facilitate titration of response. naloxone (NARCAN) injection 0.4 mg 0.4 mg, Intravenous, EVERY 2 MIN PRN, op ioid reversal, Starting on 10/20/20 at 1549, Administer intravenous route when available and notify provider when administered. For unintended sedation or respiratory depression if all of the below criteria are met: ~ respiratory rate LES S than or EQUAL to 8. ~ SaO2 less than 92% and or/end-tidal CO2 is greater than 50. ~ the patient is receiving an opioid, has unintended sedation assessed as RASS (-4 ) or (-5) and patient is currently not on mechanical ventilation. RASS scale (-4) is deep sedation with no response to voice but movement or eye opening to physical stimulation. R ASS scale (-5) is unarousable. Patient Monitoring Once the patient has demonstrated a response to the naloxone, continue to monitor respiratory rate, depth, oxygen saturation and end-tidal CO2 (if available) every 15 mi nutes x 2, then every 30 minutes x 2, then every 1 hour x 1 after each naloxone dose. Consider tr ansfer to ICU if patient respiratory parameters have not improved after 4 nalox one doses. For ordered IV doses 0.1-2mg give IVP. Give each 0.4mg over 15 seconds in emergency situations. For non-emergent situations further dilu te in 9mL of NS to facilitate titration of response. naloxone (NARCAN) injection 0.4 mg 0.4 mg, Intramuscular, EVERY 2 MIN PRN, opioid reversal, Starting on 10/20/20 at 1549, Administer intramuscular if an int ravenous route is not available and notify provider when administered. For unintend ed sedation or respiratory depression if all of the below criteria are met: ~ res piratory rate LESS than or EQUAL to 8. ~ SaO2 less than 92% and or/end-tidal CO2 is greater emiliano n 50. ~ the patient is receiving an opioid, has unintended sedation assessed as RASS (-4) or (-5) and patient is currently not on mechanical ventilation. RA SS scale (-4) is deep sedation with no response to voice but movement or eye opening to physical stimulation. RASS scale (-5) is unarousa ble. Patient Monitoring Once the patient has demonstrated a response to the nalox one, continue to monitor respiratory rate, depth, oxygen saturation and end-tidal CO2 (if availab le) every 15 minutes x 2, then every 30 minutes x 2, then every 1 hour x 1 after each naloxone dose. Consider transfer to ICU if patient respiratory parameters have not improved after 4 naloxone doses. For ordered IV doses 0.1-2mg give IVP. Give each 0.4mg over 15 seconds in emergency situations. For non -emergent situations further dilute in 9mL of NS to facilitate titration of response. nicotine (NICORETTE) gum 2 mg Given 10/21/2020 8:37 PM CDT 2 mg 2 mg, Buccal, EVERY 1 HOUR PRN, smoking cessation, Starting on 10/21/20 at 1828, Gum should be chewed slowly until it tingles, then placed between cheek and gum: when tingle gone, repeat process until tingle gone (about 30 minutes). OLANZapine zydis (zyPREXA) ODT tab 5-10 mg 5-10 mg, Oral, EVERY 6 HOURS PRN, other, hallucination s, IF able to take oral, Starting on 10/20/20 at 0502, For CIWA Visual Distu rbance Score 0-3, Give NO OLANZapine zydis (ZYPREXA) For Visual Di sturbance Score 4-5, give OLANZapine zydis (ZYPREXA) 5 mg ODT and repeat scale in 1 hour For Visu al Disturbance Score 6-7, give OLANZapine zydis (ZYPREXA) 10 mg ODT and repeat s sekou in 1 hour With dry hands, peel back foil backing and gently remove tablet . Do not push oral disintegrating tablet through foil backi ng. Administer immediately on tongue and oral disintegrating tablet dissolves in seconds, then swallow with saliva. Liquid not required. ondansetron (ZOFRAN) injection 4 mg Given 10/20/2020 9:33 AM CDT 4 mg 4 mg, Intravenous, EVERY 6 HOURS PRN, nausea, vomiting, Administer over 2-5 Minutes, Starting on Wed10/20/20 at 0330, Irritant. For ordered IV doses 0.1-4 mg, give IV Push undiluted over 2-5 minutes. Given 10/20/2020 3:46 AM CDT 4 mg ondansetron (ZOFRAN) injection 4 mg Given 10/22/2020 4:33 PM CDT 4 mg 4 mg, Intravenous, EVERY 4 HOURS PRN, nausea, vomiting, Administer over 2-5 Minutes, Starting on Wed10/20/20 at 1140, Irritant. For ordered IV doses 0.1-4 mg, give IV Push undiluted over 2-5 minutes. Given 10/21/2020 3:17 AM CDT 4 mg Given 10/20/2020 10:00 PM CDT 4 mg oxyCODONE (ROXICODONE) tablet 5-10 mg Given 10/23/2020 11:31 AM CDT 10 mg 5-10 mg, Oral, EVERY 3 HOURS PRN, moderate to severe pain, Starting on Wed10/22/20 at 0950 Given 10/23/2020 8:58 AM CDT 10 mg Given 10/22/2020 7:28 PM CDT 10 mg pantoprazole (PROTONIX) EC tablet 40 mg Given 10/23/2020 8:59 AM CDT 40 mg 40 mg, Oral, EVERY MORNING BEFORE BREAKFAST, First dose on Wed10/23/20 at 0800, DO NOT CRUSH. pantoprazole (PROTONIX) IV push injection 40 Given 7:54 AM CDT 40 mg mg 40 mg, Intravenous, DAILY WITH BREAKFAST, First dose on Wed10/20/20 at 1100, Irritant. Reconstitute each 40 mg vial with 10 mL NS. For doses 1-40 mg, give IV push over 2 minutes. For 80 mg doses, use 2x40 mg vials and give each vial IV push over 2 minutes. Given 10/20/2020 11:29 AM CDT 40 mg polyethylene glycol (MIRALAX) Packet 17 g Given 10/23/2020 8:59 AM CDT 17 g 17 g, Oral, 3 TIMES DAILY, First dose (after last modification) on Wed10/20/20 at 2000, 1 Packet = 17 grams. Mix each gram with at least 1/2 ounce (15 mL) of water - 8 ounces for 17 g dose, 4 ounces for 8.5 g dose, 2 ounces for 4 g dose. Follow with the same volume of water. Hold for loose stools. Given 10/22/2020 1:51 PM CDT 17 g Given 10/22/2020 7:53 AM CDT 17 g prochlorperazine (COMPAZINE) injection 5 mg Given 10/22/2020 7:27 PM CDT 5 mg 5 mg, Intravenous, EVERY 6 HOURS PRN, nausea, vomiting, Administer over 1-2 Minutes, Starting on Wed10/20/20 at 0502, Please use zofran first For ordered IV doses 0.1-10 mg, give IV push undiluted, each 5 mg over 1 minute. Given 10/20/2020 4:42 PM CDT 5 mg Given 10/20/2020 11:44 AM CDT 5 mg senna-docusate (SENOKOT-S/PERICOLACE) 8. 6-50 MG per tablet 1 tablet 1 tablet, Oral, 2 TIMES DAILY, First dose on Sun at 2000, If no bowel movement in 24 hours, increase to 2 tablets by mouth. Hold for loose stools. senna-docusate (SENOKOT-S/PERICOLACE) Given 10/23/2020 8:58 AM C DT 2 tablets 8.6-50 MG per tablet 2 tablet 2 tablet, Oral, 2 TIMES DAILY, First dose on 10/20/20 at 2000, Hold for loose stools. Given 10/22/2020 8:42 PM CDT 2 tablets Given 10/22/2020 7:53 AM CDT 2 tablets simethicone (MYLICON) chewable tablet 80 mg Given 10/21/2020 7:00 PM CDT 80 mg 80 mg, Oral, EVERY 6 HOURS PRN, cramping, Starting on 10/21/20 at 1626 sodium chloride (PF) 0.9% PF flush 3 mL Given 10/21/2020 9:01 AM CDT 3 mLs 3 mL, Intracatheter, EVERY 8 HOURS, First dose on Wed10/20/20 at 1600, to lock peripheral IV dormant line Given 10/20/2020 4:45 PM CDT 3 mLs sodium phosphate (FLEET ENEMA) 1 enema Given 10/22/2020 2:35 PM CDT 1 enema 1 enema, Rectal, ONCE, On Wed10/22/20 at 1430, For 1 dose, For children greater than or equal to 12 years Hold for loose stools unless being administered as part of a bowel prep regimen prior to a procedure. documented in this encounter Active and Recently Administered Medications Times are shown in CDT. Scheduled Medication Order 10/21/2020 10/22/2020 10/23/2020 enoxaparin ANTICOAGULANT (LOVENOX) injection 40 mg 155 8 (Given - Provider: Ashley Truong RN) 1634 (Given - Provider: Ashley Truong RN) 40 mg, Subcutaneous, EVERY 24 HOURS, Fir st dose on 10/20/20 at 1600, HOLD if platelet count falls below 50% of baseline or less than 100,000/??L and notify provider. escitalopram (LEXAPRO) tablet 20 mg 0750 (Not Given - Provider: Yulisa Espinoza RN - Reason: Other - Comment: Patient took own medication) 0754 (Given - Provider: Yulisa Espinoza RN) 0859 (Given - Provider: Tor Rausch RN) 20 mg, Oral, DAILY, First dose on 10/20/20 at 1600 famotidine (PEPCID) infusion 20 mg (CANCELED) 0455 (Ne w Bag - Provider: Micheal Boothe RN)1558 (New Bag - Provider: Ashley Truong RN) 0451 (New Bag - Provider: Dede Jackson, SADIE) 20 mg, Intravenous, Administer over 15-3 0 Minutes, at 100-200 mL/hr, EVERY 12 HOURS, First dose on 10/20/20 at 1600 HYDROmorphone (PF) (DILAUDID) injection 0.5 mg (COMPLE LEANA) 0859 (Given - Provider: Yulisa Espinoza RN) 0.5 mg, Intravenous, ONCE, On Wed 1 at 0830, For 1 dose, For ordered IV doses 0.1-4 mg give IV Push undiluted. Administer each 2mg over 2-5 minutes. pantoprazole (PROTONIX) EC tablet 40 mg 0859 (Given - Provider: Tor Rausch RN) 40 mg, Oral, EVERY MORNING BEFORE BREAKF AST, First dose on Wed10/23/20 at 0800, DO NOT CRUSH. pantoprazole (PROTONIX) IV push injection 40 mg (CANCE LED) 0756 (Not Given - Provider: Yulisa Espinoza RN - Reason: Other - Comment: patient took at home omeperzole) 0754 (Given - Provider: Yulisa Espinoza RN) 40 mg, Intravenous, DAILY WITH BREAKFAST , First dose on Wed10/20/20 at 1100, Irritant. Reconstitute each 40 mg vial with 10 mL NS. For doses 1-40 mg, give IV push over 2 minutes. For 80 mg doses, use 2x 40 mg vials and give each vial IV push over 2 minutes. pink lady enema (COMPOUNDED: docusate, m agnesium citrate, mineral oil, sodium phosphate) 1934 (Not Given - Provider: Ashley Truong RN - Reason: Patient/family refused - Comment: last enema was unsuccessful and caused more pain per pt) 286 mL, Rectal, ONCE, On Wed10/22/20 at 1730, For 1 dose polyethylene glycol (MIRALAX) Packet 17 g 0752 (Given - Provider: Yulisa Espinoza RN)1446 (Given - Provider: Yulisa Espinoza RN)1959 (Given - Provider: Dede Jackson RN) 0753 (Given - Provider: Yulisa muñoz RN)1351 (Given - Provider: Yulisa Espinoza RN)1935 (Not Given - Provider: Ashley Truong RN - Reason: Other - Comment: ileus) 0859 (Given - Provider: Tor Rausch RN)1400 (Canceled Entry - Provider: Orders Generic Provider - Comment: Automatically canceled at discontinue of medication order) 17 g, Oral, 3 TIMES DAILY, First dose (a fter last modification) on Wed10/20/20 at 2000, 1 Packet = 17 grams. Mix each gram with at least 1/2 ounce (15 mL) of water - 8 ounces for 17 g dose, 4 ounces for 8.5 g dose, 2 ounces for 4 g dose. Foll ow with the same volume of water. Hold for loose stools. senna-docusate (SENOKOT-S/PERICOLACE) 8. 6-50 MG per tablet 1 tablet(Linked Group 1) 075 (See Alternative - Provider: Yulisa Espinzoa RN)1958 (See Alternative - Provider: Dede Jackson RN) 075 (See Alternative - Provider: Yulisa Espinoza RN)2041 (See Alternative - Provider: Ashley Truong RN) 0858 (See Alternative - Provider: Salty Rausch RN) 1 tablet, Oral, 2 TIMES DAILY, First dos e on 10/20/20 at 2000, If no bowel movement in 24 hours, increase to 2 tablets by mouth. Hold for loose stools. senna-docusate (SENOKOT-S/PERICOLACE) 8. 6-50 MG per tablet 2 tablet(Linked Group 1) 075 (Given - Provider: Yulisa muñoz RN)1958 (Given - Provider: Dede Jackson RN) 075 (Given - Provider: Yulisa muñoz RN)2041 (Given - Provider: Ashley Truong RN) 0858 (Given - Provider: Tor Rausch RN) 2 tablet, Oral, 2 TIMES DAILY, First dos e on 10/20/20 at 2000, Hold for loose stools. sodium chloride (PF) 0.9% PF flush 3 mL 0037 (Not Give n - Provider: Micheal Boothe RN - Reason: IV Infusing)0901 (Given - Provider: Yulisa Espinoza RN)1541 (Canceled Entry - Provider: Ashley Truong RN)2310 (Not Given - Provider: Dede Jackson RN - Reason: IV Infusing) 0755 (Not Given - Provider: Yulisa Espinoza RN - Reason: IV Infusing)1617 (Canceled Entry - Provider: Ashley Truong RN) 0000 (Canceled Entry - Provider: Gi Mendes RN)0903 (Not Given - Provider: Tor Rausch RN - Reason: IV Infusing) 3 mL, Intracatheter, EVERY 8 HOURS, Firs t dose on Wed10/20/20 at 1600, to lock peripheral IV dormant line sodium phosphate (FLEET ENEMA) 1 enema (COMPLETED) 1435 (Given - Provider: Yulisa Espinoza RN) 1 enema, Rectal, ONCE, On Wed10/22/20 at 1430, For 1 dose, For children greater than or equal to 12 years Hold for loose stools unless being administered as part of a bowel prep regimen prior to a procedure. Continuous Medication Order 10/21/2020 10/22/2020 10/23/2020 HYDROmorphone (DILAUDID) PALLIATIVE MEDICINE PHYSICIAN 0.2 mg/mL O PIOID NAIVE (age less than 65 years) (CANCELED) 0903 (New Syringe/Cartridge - Provider: Yulisa Espinoza RN)1157 (New Syringe/Cartridge - Provider: Yulisa Espinoza RN)1449 (Shift Total - Provider: Yulias Espinoza RN)2136 (Rate/Dose Verify - Provider: Dede Jackson RN) 0600 (Shift Total - Provider: Dede Jackson RN) Continuous Rate: 0 mg/hr, PALLIATIVE MEDICINE PHYSICIAN Dose: 0.3 mg, PALLIATIVE MEDICINE PHYSICIAN Lockout: 10 Minutes, One Hour Limit: 1.8 mg, Clinician Bolus (one time dose): 0 mg, Starting on Wed10/21/20 at 0830, Hold the dose for analgesic side effe cts. Notify the provider to assess for u ncontrolled pain or analgesic side effects. Do NOT give any additional opioids while on PALLIATIVE MEDICINE PHYSICIAN unless provider authorized., Intravenous lactated ringers infusion (CANCELED) 0458 (New Bag - P rovider: Micheal Boothe RN)1452 (New Bag - Provider: Yulisa Espinoza RN)1600 (Rate/Dose Change - Provider: Ashley Truong RN) at 125 mL/hr, Intravenous, CONTINUOUS, A fter additional 1L is completed, Starting on Wed10/20/20 at 2000, Until Wed10/21/20 at 1556 lactated ringers infusion (CANCELED) 011 1 (New Bag - Provider: Dede Jackson RN)1148 (New Bag - Provider: Yulisa Espinoza RN)1530 (Paused - Provider: Ashley Truong RN - Comment: pt refusing wants a break) 0217 (New Bag - Provider: Dede Jackson RN) at 100 mL/hr, Intravenous, CONTINUOUS, A fter additional 1L is completed, Starting on Wed10/22/20 at 1200, Until Wed10/23/20 at 0918 1938 (Restarted - Provider: Ashley Truong RN - Comment: pt eduvated on need for fluids with NPO status) PRN Medication Order 10/21/2020 10/22/2020 10/23/2020 acetaminophen (TYLENOL) tablet 650 mg 1641 (Given - Pr ovider: Ashley Truong RN)223 (Given - Provider: Dede Jackson RN) 163 (Given - Provider: Ashley Truong RN)2042 (Given - Provider: Ashley Truong RN) 650 mg, Oral, EVERY 6 HOURS PRN, mild pa in, fever, headaches, Starting on Wed10/21/20 at 1554, Maximum acetaminophen dose from all sources = 75 mg/kg/day not to exceed 4 grams/day. bisacodyl (DULCOLAX) Suppository 10 mg 2229 (Given - P rovider: Dede Jackson RN) 10 mg, Rectal, DAILY PRN, constipation, Starting on Wed10/21/20 at 2144, Hold for loose stools. diazepam (VALIUM) injection 5-10 mg(Linked Group 2) 16 41 (See Alternative - Provider: Ashley Truong RN)1900 (See Alternative - Provider: Ashley Truong RN)212 (See Alternative - Provider: Dede Jackson RN) 5-10 mg, Intravenous, Administer over 1- 4 Minutes, EVERY 30 MIN PRN, other, per CIWA-Ar score, Starting on 10/20/20 at 0503, Oral dosing is the preferred route of administration. Dose according to CI [place]-Ar Score: For CIWA-Ar Score LESS THAN OR EQUAL TO 7: ~ NO diazepam (VALIUM) is to be given and ~ repeat CIWA-Ar scale in 4 hours and PRN if symptomatic For CIWA-Ar Score 8-12: ~ give diazepam (VALIUM ) 10 mg PO or 5 mg IV and ~ repeat CIWA- Ar scale in 2 hours For CIWA-Ar Score 13-15: ~ give diazepam (VALIUM)10 mg PO or 5 mg IV and ~ repeat CIWA-Ar scale in 30 minutes For CIWA-Ar Score GREATER THAN O R EQUAL TO 16: ~ give diazepam (VALIUM) 10mg PO or 10 mg IV and ~ repeat CIWA-Ar scale in 30 minutes Doses should be withheld for nystagmus, sedation, ataxia, dysarthria or respiratory rate less than 12 . If dose is being held more than once, provider must be notified. This drug may cause significant respiratory depression. Monitor respiratory status and vital signs carefully for 1 hour after each dose. diazepam (VALIUM) tablet 10 mg(Linked Group 2) 1641 (G iven - Provider: Ashley Truong RN)1900 (Given - Provider: Ashley Truong RN)2126 (Given - Provider: Dede Jackson RN - Comment: cibrianna 9) 10 mg, Oral, EVERY 30 MIN PRN, other, pe r CIWA-Ar score, Starting on 10/20/20 at 0503, Oral dosing is the preferred route of administration. Dose according to CIWA-Ar Score: For CIWA-Ar Score LESS TH AN OR EQUAL TO 7: ~ NO diazepam (VALIUM) is to be given and ~ repeat CIWA-Ar scale in 4 hours and PRN if symptomatic For CIWA-Ar Score 8-12: ~ give diazepam (VALIUM) 10 mg PO or 5 mg IV and ~ repeat CIW A-Ar scale in 2 hours For CIWA-Ar Score 13-15: ~ give diazepam (VALIUM)10 mg PO or 5 mg IV and ~ repeat CIWA-Ar scale in 30 minutes For CIWA-Ar Score GREATER THAN OR EQUAL TO 16: ~ give diazepam (VALIUM ) 10mg PO or 10 mg IV and ~ repeat CIWA- Ar scale in 30 minutes Doses should be withheld for nystagmus, sedation, ataxia, dysarthria or respiratory rate less than 12. If dose is being held more than once, provider must be notified. flumazenil (ROMAZICON) injection 0.2 mg 0.2 mg, Intravenous, EVERY 1 MIN PRN, be nzodiazepine reversal, Administer over 1 Minutes, Starting on Wed10/20/20 at 0502, Give if patient unarousable, RR less than 8, or appears to be approaching respi ratory arrest. Give over 15 secs. If cherri dequate response after 45 seconds, may repeat q1min (MAX total dose: 1 mg). Continue monitoring for a minimum of 2 hours. Notify MD if administered. Irritant. For ordered IV doses 0.1-1 mg, give IV Push undiluted. Administer each 0.2mg over 15 seconds. Use with caution in patients on benzodiazepine therapy. haloperidol lactate (HALDOL) injection 2.5-5 mg(Linked Group 3) 2.5-5 mg, Intravenous, EVERY 6 HOURS PRN , other, hallucinations, IF unable to take oral, Administer over 1 Minutes, Starting on Wed10/20/20 at 0502, For CIWA Visual Disturbance Score 0-3, give NO Halope ridol For Visual Disturbance Score 4-5, give Haloperidol 2.5 mg IV and repeat scale in 1 hour For Visual Disturbance Score 6-7, give Haloperidol 5 mg IV and repeat scale in 1 hour MAX: 40 mg in 24 hours For ordered doses up to 5 mg, drug can be give IV Push undiluted over 1 minute. HYDROmorphone (PF) (DILAUDID) injection 0.3 mg 2036 (Given - Provider: Ashley Truong RN) 0216 (Given - Provider: Dede block RN)0628 (Given - Provider: Dede Jackson RN) 0.3 mg, Intravenous, EVERY 4 HOURS PRN, moderate to severe pain, Starting on Wed10/22/20 at 1932, For ordered IV doses 0.1-4 mg give IV Push undiluted. Administer each 2mg over 2-5 minutes. hydrOXYzine (ATARAX) tablet 25 mg 1633 ( Given - Provider: Ashley Truong RN)2043 (Given - Provider: Ashley Truong RN) 0858 (Given - Provider: Debrework Damte, RN) 25 mg, Oral, 3 TIMES DAILY PRN, anxiety, Starting on 10/21/20 at 1626 lidocaine (LMX4) cream Topical, EVERY 1 HOUR PRN, pain, with VA D insertion, Starting on 10/20/20 at 1531, Apply at least 30 minutes prior to VAD insertion in divided doses as needed for size of site for insertion. MAX Dose : 2.5 g (?? of 5 g tube) Do NOT give if patient has a history of allergy to any local anesthetic or any pastor product. Do NOT use both lidocaine intradermal/subcutaneous injection and the lidocaine cream on the same site. lidocaine 1 % 0.1-1 mL 0.1-1 mL, Other, EVERY 1 HOUR PRN, mild pain with VAD insertion, Starting on 10/20/20 at 1531, MAX dose 1 mL subcutaneous OR intradermal along the side of the vein in divided doses as needed for VAD insertion. Do NOT give if patient has a history of allergy to any local anesthetic or any pastor product. Do NOT use both lidocaine intradermal/subcutaneous injection and the lidocaine cream on the same site. melatonin tablet 5 mg 2324 (Given - Provider: Melida Jackson RN) 5 mg, Oral, EVERY EVENING PRN, sleep, Starting on 10/20/20 at 0502 naloxone (NARCAN) injection 0.2 mg(Linked Group 4) 0.2 mg, Intravenous, EVERY 2 MIN PRN, op ioid reversal, Starting on 10/20/20 at 1549, Administer intravenous route when available and notify provider when administered. For unintended sedation or resp iratory depression if all of the below c mona are met: ~ respiratory rate LESS than or EQUAL to 8. ~SaO2 less than 92% and or/end-tidal CO2 is greater than 50. ~ the patient is receiving an opioid, germain s unintended sedations assessed as RASS (-3), and is currently not on mechanical ventilation. RASS scale moderate (-3) is movement or eye opening to voice but no eye contact. Patient Monitoring Once the patient has demonstrated a response to the naloxone, continue to monitor respiratory rate, depth, oxygen saturation and end-tidal CO2 (if available) every 15 minutes x 2, then every 30 minutes x 2, the n every 1 hour x 1 after each naloxone d ose. Consider transfer to ICU if patient respiratory parameters have not improved after 4 naloxone doses. For ordered IV doses 0.1-2mg give IVP. Give each 0.4mg o opal 15 seconds in emergency situations. For non-emergent situations further dilute in 9mL of NS to facilitate titration of response. naloxone (NARCAN) injection 0.2 mg(Linked Group 4) 0.2 mg, Intramuscular, EVERY 2 MIN PRN, opioid reversal, Starting on 10/20/20 at 1549, Administer intramuscular if an intravenous route is not available and notify provider when administered. For uni ntended sedation or respiratory depressi on if all of the below criteria are met: ~ respiratory rate LESS than or EQUAL to 8. ~SaO2 less than 92% and or/end- tidal CO2 is greater than 50. ~ the patient is receiving an opioid, has unintended sed ations assessed as RASS (-3), and is currently not on mechanical ventilation. RASS scale moderate (-3) is movement or eye opening to voice but no eye contact. Pat ient Monitoring Once the patient has dem onstrated a response to the naloxone, continue to monitor respiratory rate, depth, oxygen saturation and end-tidal CO2 (if available) every 15 minutes x 2, then e very 30 minutes x 2, then every 1 hour x 1 after each naloxone dose. Consider transfer to ICU if patient respiratory parameters have not improved after 4 naloxone doses. For ordered IV doses 0.1-2mg giv e IVP. Give each 0.4mg over 15 seconds i n emergency situations. For non-emergent situations further dilute in 9mL of NS to facilitate titration of response. naloxone (NARCAN) injection 0.4 mg(Linked Group 4) 0.4 mg, Intravenous, EVERY 2 MIN PRN, op ioid reversal, Starting on 10/20/20 at 1549, Administer intravenous route when available and notify provider when administered. For unintended sedation or resp iratory depression if all of the below c riteria are met: ~ respiratory rate LESS than or EQUAL to 8. ~ SaO2 less than 92% and or/end-tidal CO2 is greater than 50. ~ the patient is receiving an opioid, h as unintended sedation assessed as RASS (-4) or (-5) and patient is currently not on mechanical ventilation. RASS scale (-4) is deep sedation with no response to voice but movement or eye opening to phy sical stimulation. RASS scale (-5) is un arousable. Patient Monitoring Once the patient has demonstrated a response to the naloxone, continue to monitor respiratory rate, depth, oxygen saturation and end -tidal CO2 (if available) every 15 minut es x 2, then every 30 minutes x 2, then every 1 hour x 1 after each naloxone dose. Consider transfer to ICU if patient respiratory parameters have not improved af ter 4 naloxone doses. For ordered IV dos es 0.1-2mg give IVP. Give each 0.4mg over 15 seconds in emergency situations. For non-emergent situations further dilute in 9mL of NS to facilitate titration of response. naloxone (NARCAN) injection 0.4 mg(Linked Group 4) 0.4 mg, Intramuscular, EVERY 2 MIN PRN, opioid reversal, Starting on Wed10/20/20 at 1549, Administer intramuscular if an intravenous route is not available and notify provider when administered. For uni ntended sedation or respiratory depressi on if all of the below criteria are met: ~ respiratory rate LESS than or EQUAL to 8. ~ SaO2 less than 92% and or/end- tidal CO2 is greater than 50. ~ the patient i s receiving an opioid, has unintended se dation assessed as RASS (-4) or (-5) and patient is currently not on mechanical ventilation. RASS scale (-4) is deep sedation with no response to voice but moveme nt or eye opening to physical stimulatio n. RASS scale (-5) is unarousable. Patient Monitoring Once the patient has demonstrated a response to the naloxone, continue to monitor respiratory rate, depth, o xygen saturation and end-tidal CO2 (if a vailable) every 15 minutes x 2, then every 30 minutes x 2, then every 1 hour x 1 after each naloxone dose. Consider transfer to ICU if patient respiratory paramet ers have not improved after 4 naloxone d oses. For ordered IV doses 0.1-2mg give IVP. Give each 0.4mg over 15 seconds in emergency situations. For non-emergent situations further dilute in 9mL of NS to facilitate titration of response. nicotine (NICORETTE) gum 2 mg 2036 (Given - Provider: Dede Jackson, SADIE) 2 mg, Buccal, EVERY 1 HOUR PRN, smoking cessation, Starting on Wed10/21/20 at 1828, Gum should be chewed slowly until it tingles, then placed between cheek and gum: when tingle gone, repeat process until tingle gone (about 30 minutes). OLANZapine zydis (zyPREXA) ODT tab 5-10 mg(Linked Group 3) 5-10 mg, Oral, EVERY 6 HOURS PRN, other, hallucinations, IF able to take oral, Starting on 10/20/20 at 0502, For CIWA Visual Disturbance Score 0-3, Give NO OLANZapine zydis (ZYPREXA) For Visual Distu rbance Score 4-5, give OLANZapine zydis (ZYPREXA) 5 mg ODT and repeat scale in 1 hour For Visual Disturbance Score 6-7, give OLANZapine zydis (ZYPREXA) 10 mg ODT and repeat scale in 1 hour With dry hand s, peel back foil backing and gently rem ove tablet. Do not push oral disintegrating tablet through foil backing. Administer immediately on tongue and oral disintegrating tablet dissolves in seconds, then swallow with saliva. Liquid not required. ondansetron (ZOFRAN) injection 4 mg 031 (Given - Prov ider: Mikayla Escamilla RN) 163 (Given - Provider: Ashley Truong RN) 4 mg, Intravenous, EVERY 4 HOURS PRN, na usea, vomiting, Administer over 2-5 Minutes, Starting on 10/20/20 at 1140, Irritant. For ordered IV doses 0.1-4 mg, give IV Push undiluted over 2-5 minutes. oxyCODONE (ROXICODONE) tablet 5-10 mg 11 (Given - Provider: Yulisa Espinoza RN)1351 (Given - Provider: Yulisa Espinoza RN)1632 (Given - Provider: Ashley Truong RN)1928 (Given - Provider: Ashley Truong, SADIE) 0858 (Given - Provider: Tor Rausch RN)1131 (Given - Provider: Tor Rausch RN) 5-10 mg, Oral, EVERY 3 HOURS PRN, modera te to severe pain, Starting on Wed10/22/20 at 0950 prochlorperazine (COMPAZINE) injection 5 mg 1926 (Given - Provider: Ashley Truong RN) 5 mg, Intravenous, EVERY 6 HOURS PRN, na usea, vomiting, Administer over 1-2 Minutes, Starting on 10/20/20 at 0502, Please use zofran first For ordered IV doses 0.1-10 mg, give IV push undiluted, each 5 mg over 1 minute. simethicone (MYLICON) chewable tablet 80 mg 1900 (Give n - Provider: Ashley Truong RN) 80 mg, Oral, EVERY 6 HOURS PRN, cramping, Starting on Wed 1 at 1626 sodium chloride (PF) 0.9% PF flush 3 mL 3 mL, Intracatheter, EVERY 1 MIN PRN, li ne flush, other, to ensure patency or to lock dormant line, Starting on Wed10/20/20 at 1531 Linked Groups Order Group 1: senna-docusate (SENOKOT-S/PERICOLACE) 8.6-50 MG per tablet 1 tabletJump to med 1 tablet, Oral, 2 TIMES DAILY, First dos e on 10/20/20 at 2000
If no bowel movement in 24 hours, increase to 2 tablets by mouth. Hold for loose stools.
Or senna-docusate (SENOKOT-S/PERICOLACE) 8.6-50 MG per tablet 2 tabletJump to med 2 tablet, Oral, 2 TIMES DAILY, First dos e on 10/20/20 at 2000
Hold for loose stools.
Group 2: diazepam (VALIUM) tablet 10 mgJump to med 10 mg, Oral, EVERY 30 MIN PRN, other, pe r CIWA-Ar score, Starting on Wed10/20/20 at 0503
Oral dosing is the preferred route of administration. Dose according to CIWA-Ar Score : For CIWA-Ar Score LESS THAN OR EQ UAL TO 7: ~ NO diazepam (VALIUM) is to be given and ~ repeat CIWA-Ar scale in 4 hours and PRN if symptomatic For CIWA-Ar Score 8-12 : ~ give diazepam (VALIUM) 10 mg PO or 5 mg IV and ~ repeat CIWA-Ar scale in 2 hours For CIWA-Ar Score 13-15: ~ give diazepam (VALIUM)10 mg PO or 5 mg IV and&nbsp ;~ repeat CIWA-Ar scale in 30 minutes&nb sp;For CIWA-Ar Score GREATER THAN OR EQUAL TO 16: ~ give diazepam (VALIUM) 10mg PO or 10 mg IV and ~ repeat CIWA-Ar scale in 30 minutes& nbsp;Doses should be withheld for nystag mus, sedation, ataxia, dysarthria or respiratory rate less than 12. If dose is being held more than once, provider must be notified.
Or diazepam (VALIUM) injection 5-10 mgJump to med 5-10 mg, Intravenous, Administer over 1- 4 Minutes, EVERY 30 MIN PRN, other, per CIWA-Ar score, Starting on 10/20/20 at 0503
Oral dosing is the preferred route of administration. &am p;nbsp;Dose according to CIWA-Ar Score:& nbsp;For CIWA-Ar Score LESS THAN OR EQUAL TO 7: ~ NO diazepam (VALIUM) is to be given and ~ repeat CIWA-Ar scale in 4 hours and PRN if sympt omatic For CIWA-Ar Score 8-12:&nbsp ;~ give diazepam (VALIUM) 10 mg PO or 5 mg IV and ~ repeat CIWA-Ar scale in 2 hours For CIWA-Ar Score 13- 15: ~ give diazepam (V ALIUM)10 mg PO or 5 mg IV and ~ rep eat CIWA-Ar scale in 30 minutes For CIWA-Ar Score GREATER THAN OR EQUAL TO 16: ~ give diazepam (VALIUM) 10mg PO or 10 mg IV and ~ r epeat CIWA-Ar scale in 30 minutes D oses should be withheld for nystagmus, sedation, ataxia, dysarthria or respiratory rate less than 12. If dose is being held more than once, provider must be n otified. This drug may cause signif icant respiratory depression. Monitor respiratory status and vital signs carefully for 1 hour after each dose.
Group 3: OLANZapine zydis (zyPREXA) ODT tab 5-10 mgJump to med 5-10 mg, Oral, EVERY 6 HOURS PRN, other, hallucinations, IF able to take oral, Starting on 10/20/20 at 0502
For CIWA Visual Disturbance Score 0-3, Give NO OLANZapine zydis (ZYPREXA)&nbsp ;For Visual Disturbance Score 4-5, give OLANZapine zydis (ZYPREXA) 5 mg ODT and repeat scale in 1 hour For Visual Disturbance Score 6-7, give OLANZapine zydis (ZYPREXA) 10 mg ODT and repeat sca le in 1 hour With dry hands, peel b ack foil backing and gently remove tablet. Do not push oral disintegrating tablet through foil backing. Administer immediately on tongue and oral disintegrati ng tablet dissolves in seconds, then swa llow with saliva. Liquid not required.
Or haloperidol lactate (HALDOL) injection 2.5-5 mgJump to med 2.5-5 mg, Intravenous, EVERY 6 HOURS PRN , other, hallucinations, IF unable to take oral, Administer over 1 Minutes, Starting on 10/20/20 at 0502
For CIWA Visual Disturbance Score 0-3, give N O Haloperidol For Visual Disturban ce Score 4-5, give Haloperidol 2.5 mg IV and repeat scale in 1 hour For Visual Disturbance Score 6-7, give Haloperidol 5 mg IV and repeat scale in 1 hour MAX: 40 mg in 24 hours Fo r ordered doses up to 5 mg, drug can be give IV Push undiluted over 1 minute.
Group 4: naloxone (NARCAN) injection 0.2 mgJump to med 0.2 mg, Intravenous, EVERY 2 MIN PRN, op ioid reversal, Starting on 10/20/20 at 1549
Administer intravenous route when available and notify provider when administered. For unintended sedation or respiratory depression if a ll of the below criteria are met: ~ respiratory rate LESS than or EQUAL to 8. ~SaO2 less than 92% and or/end- tidal CO2 is greater than 50.& nbsp;~ the patient is receiving an opioi d, has unintended sedations assessed as RASS (-3), and is currently not on mechanical ventilation. RASS scale moderate (-3) is movement or eye opening to voice but no eye contact.&nbs p; Patient Monitoring Once the patient has demonstrated a response to the naloxone, continue to monitor respiratory rate, depth, oxygen satu ration and end-tidal CO2 (if available) every 15 minutes x 2, then every 30 minutes x 2, then every 1 hour x 1 after each naloxone dose. Consider transfer to ICU if patient respirator y parameters have not improved after 4 n aloxone doses. For ordered IV doses 0.1-2mg give IVP. Give each 0.4mg over 15 seconds in emergency situations. For non-emergent situations further dilute in 9mL of NS to facilitate titration of response.
Or naloxone (NARCAN) injection 0.4 mgJump to med 0.4 mg, Intravenous, EVERY 2 MIN PRN, op ioid reversal, Starting on 10/20/20 at 1549
Administer intravenous route when available and notify provider when administered. For unintended sedation or respiratory depression if a ll of the below criteria are met: ~ respiratory rate LESS than or EQUAL to 8. ~ SaO2 less than 92% and or/end- tidal CO2 is greater than 50.& nbsp;~ the patient is receiving an opioi d, has unintended sedation assessed as RASS (-4) or (-5) and patient is currently not on mechanical ventilation. RASS scale (-4) is deep sedati on with no response to voice but movemen t or eye opening to physical stimulation. RASS scale (-5) is unarousable. Patient Monitoring On ce the patient has demonstrated a respon se to the naloxone, continue to monitor respiratory rate, depth, oxygen saturation and end-tidal CO2 (if available) every 15 minutes x 2, then every 30 minutes x 2, then every 1 hour x 1 after each nalo xone dose. Consider transfer to ICU if patient respiratory parameters have not improved after 4 naloxone doses. For ordered IV doses 0 .1-2mg give IVP. Give each 0.4mg over 15 seconds in emergency situations. For non-emergent situations further dilute in 9mL of NS to facilitate titration of response.
Or naloxone (NARCAN) injection 0.2 mgJump to med 0.2 mg, Intramuscular, EVERY 2 MIN PRN, opioid reversal, Starting on 10/20/20 at 1549
Administer intramuscular if an intravenous route is not available and notify provider when administered. For unintended sedation or respira tory depression if all of the below criteria are met: ~ respiratory rate LESS than or EQUAL to 8. ~SaO2 less than 92% and or/end-tidal CO2 is greater than 50. ~ the patient i s receiving an opioid, has unintended sedations assessed as RASS (-3), and is currently not on mechanical ventilation. RASS scale moderate (-3) is movement or eye opening to voice but no eye contact. Patient Monitoring Once the patient has demonstrated a response to the naloxone, continue to monitor respiratory rate, depth, oxygen saturation and end-t idal CO2 (if available) every 15 minutes x 2, then every 30 minutes x 2, then every 1 hour x 1 after each naloxone dose. Consider transfer to [facility] if patient respiratory parameters hav e not improved after 4 naloxone doses. For ordered IV doses 0.1-2mg give IVP. Give each 0.4mg over 15 seconds in emergency situations. For non-emergent s ituations further dilute in 9mL of NS to facilitate titration of response.
Or naloxone (NARCAN) injection 0.4 mgJump to med 0.4 mg, Intramuscular, EVERY 2 MIN PRN, opioid reversal, Starting on 10/20/20 at 1549
Administer intramuscular if an intravenous route is not available and notify provider when administered. For unintended sedation or respira tory depression if all of the below criteria are met: ~ respiratory rate LESS than or EQUAL to 8. ~ SaO2 less than 92% and or/end-tidal CO2 is greater than 50. ~ the patient i s receiving an opioid, has unintended sedation assessed as RASS (-4) or (-5) and patient is currently not on mechanical ventilation. RASS s sekou (-4) is deep sedation with no respo nse to voice but movement or eye opening to physical stimulation. RASS scale (-5) is unarousable. Patien t Monitoring Once the patient has d emonstrated a response to the naloxone, continue to monitor respiratory rate, depth, oxygen saturation and end-tidal CO2 (if available) every 15 minutes x 2, then every 30 minutes x 2, then every 1 hour x 1 after each naloxone dose. Consider transfer to ICU if patient respiratory parameters have not improved after 4 naloxone doses.&nbs p;For ordered IV doses 0.1-2mg give IVP. Give each 0.4mg over 15 seconds in emergency situations. For non-emergent situations further dilute in 9mL of NS to facilitate titration of response.
documented in this encounter Care Teams [employer] Relationship Specialty Start Date End Date Aydin Morales MD PCP - General 11/01/09 [address] [facility] [address] [id number] documented as of this encounter
--- OUTSIDE RECORDS SUMMARY | 2021-11-24 22:15 | XMS_ITS | Encounter Summary ---
:1975 Author Organization [facility] Address [address] [place] [address]. [place] [address] Care Team Providers Name Role Phone Unavailable Primary Care Provider Unavailable Encounter Details Date Type Department Care Team Description 06/03/2009 Results Only HOSP RESULTS Colin Silva MD [address] [place], [place] [phone] (Wo rk) Social History Tobacco Use Types Packs/Day Years Used Date Never Assessed Sex Assigned at Date Recorded Not on file documented as of this encounter Plan of Treatment Not on filedocumented as of this encounter Procedures Procedure Name Priority Date/Time Associated Diagnosis Comme nts CT SCAN Routine 06/03/2009 11:13 PM Results for this ABDOMEN/PELVIS CDT procedure are in the results section. HC X-RAY ABDOMEN Routine 06/03/2009 9:59 PM Resul ts for this AP, PLUS OBLIQ & CDT procedure a re in [facility] the results section. documented in this encounter Results CT SCAN ABDOMEN/PELVIS (06/03/2009 11:13 PM CDT) Specimen (Source) Anatomical Collection Method Collection Time Re ceived Time Location / / Volume Laterality 06/03/2009 11:13 PM CDT Impressions RADIOLOGY RESULTS - 06/04/2009 2:[address] SCAN OF THE ABDOMEN AND PELVIS ?? HISTORY: ?? Right flank pain. ? 3 mm axial scans from the diaphragm to t he symphysis pubis were obtained without IV or oral contrast. ?? Multiple coronal reconstruction views of the abdomen and pelvis were obtained. ? Lung bases are clear. ??There is no evid ence of pleural fluid. ??Heart size is normal. ? The liver, gallbladder, biliary tree, pa ncreas, spleen and bilateral adrenal glands appear normal. ? There is mild right perirenal edema and mild collecting system dilatation of the right kidney and dilat ation of the right ureter distally to the pelvis where there is a 4 mm stone in the right ureterovesical junction. ??No other s tones are seen. ??The bladder wall is negative and the left kidney and ureter are normal. ? There is mild dilatation of proximal sma ll bowel measuring 3.5 cm. ?? The remaining small bowel, stomach, larg e bowel and appendix appear normal. ??There is no evidence of divert iculitis or appendicitis. ??No bowel wall abnormalities are identified. ? No free air or free fluid, inflammatory changes to fat or abscess seen. ??No adenopathy identified. ?? IMPRESSION: ?? 1. ?4 mm stone right ureterove sical junction causing mild to moderate obstruction on the right side. ?? 2. ?Normal appendix. ?? 3. ?Mild dilatation of the proxim al small bowel, etiology of this is unknown. ? This study was read by [facility] [place], [place]. Bryan Murry MD SPECIAL IMAGING STUDIES Performing Organization Address City/State/ZIP Code Phon e Number RADIOLOGY RESULTS X-RAY ABDOMEN 1+ VW (06/03/2009 9:59 PM CDT) Specimen (Source) Anatomical Collection Method Collection Time Re ceived Time Location / / Volume Laterality 06/03/2009 9:59 PM CDT Impressions RADIOLOGY RESULTS - 06/04/2009 2:40 PM C DT KUB ? CLINICAL HISTORY: ??Right flank pain. ?? FINDINGS: ?? One view of the abdomen was obtained. ??There is a nonobstructive bowel gas pattern. ??Ther e is a calcification in the right pelvis. ??This could be a distal u reteral stone. ??There is a nonobstructive bowel gas pattern. ?? IMPRESSION: ??A 0.3 cm calcification in the right pelvis which could be a distal right ureteral stone. ?? This was discussed with Dr. Vicente on 06/04/2009 at 0900 hours. Bryan Murry MD GENERAL IMAGING Performing Organization Address City/State/ZIP Code Phon e Number RADIOLOGY RESULTS documented in this encounter Visit Diagnoses Not on filedocumented in this encounter
--- OUTSIDE RECORDS SUMMARY | 2021-11-24 22:15 | XMS_ITS | Encounter Summary ---
:1975 Author Organization [facility] Address [address] [place] [address] Care Team Providers Name Role Phone Unavailable Primary Care Provider Unavailable Encounter Details Date Type Department Care Team Description 02/12/2014 Hospital Encounter HX [facility] Venkata Cavanaugh P.A.-C. [address] [place] [phone] (Wo rk) Social History Tobacco Use Types Packs/Day Years Used Date Smoking Tobacco: Never Assessed Sex Assigned at Date Recorded Male 10/02/2021 1:59 PM CDT documented as of this encounter Last Filed Vital Signs Vital Sign Reading Time Taken Comments Blood Pressure 130/84 02/12/2014 11:24 AM DIRECTOR UNDERWRITER SALES Pulse 88 02/12/2014 11:24 AM DIRECTOR UNDERWRITER SALES Temperature - - Respiratory Rate 16 02/12/2014 11:24 AM DIRECTOR UNDERWRITER SALES Oxygen Saturation - - Inhaled Oxygen Concentration - - Weight - - Height 180 cm (5' 10.87) 02/12/2014 11:24 AM DIRECTOR UNDERWRITER SALES Body Mass Index - - documented in this encounter Progress Notes Cyndie Cavanaugh P.A.-C. - 02/12/2014 11:03 AM CST [id number] CHIEF COMPLAINT/REASON FOR VISIT To establish care. HISTORY OF PRESENT ILLNESS Anastasiya is a 38-year-old male who saw Maria Del Carmen for a preop history and physical earlier this year. He had a right shoulder surgery. He is continuing to do physical therapy. He is having therapy 3 times a week. He is doing well. He still has some occasional pain. He used Vicodin. He was told he cannot go to ibuprofen for another week or two, so he is wondering if he could have a few more Vicodin because he has some occasional pain at nighttime. He also has a history of anxiety and panic attacks. He has been treated with citalopram for this for the last 3 years at 40 mg a day. He has had pretty good success but has been using Ativan fairly regularly. He says he usually goes through about 30 Ativan a month and I discussed with him clearly he is not having good enough control of his anxiety if he is having to use this much Ativan. He has not seen a therapist. He would be interested in trying it. He tried it one other time at a different place but did not have a good relationship with that person so did not want to continue it. He would be interested in trying another therapist. SOCIAL HISTORY He drinks occasionally. He smokes about 5 cigarettes a day. He does not do any drugs. His diet is fairly general. He works with a job that involves much travel and he has fairly limited exercise but helikes to play softball in the summer. He is due for a physical exam as well. VITAL SIGNS Noted in EMR. PHYSICAL EXAMINATION GENERAL: He appears in no acute distress. HEART: Regular rate and rhythm. No murmurs. LUNGS: Clear to auscultation. IMPRESSION/REPORT/PLAN 1. Anxiety. This has been a longstanding issue for him and the citalopram really is not working wellenough for him. He would be interested in trying something different so after some discussion today we are going to switch him to Cymbalta 60 mg a day and we will see how he responds. If his symptoms do not improve with the Cymbalta then we will need to consider some other therapy. We can either increase it or add in some buspirone. I told him I do not want him to use Ativan as much as he has been using it. I will give him 12 Ativan to see how he does over the next month to use it infrequently and he is in agreement with this plan. We also talked about trying a counselor. He wants to think about this. We will see him back for his physical in 3 months and a recheck. We will discuss it further at that time. 2. Right shoulder pain. He is having some pain from his right shoulder. He will continue with his therapy. I did give him a few Vicodin to use for the short run but told him that we will not prescribe this remote computer terminal operator for him. He is in agreement with this plan. If there is any questions or problems in the meantime, he will let us know. 3. Health maintenance. He is due for a physical He will set this up. I will see him back in about 3 weeks. Will draw some blood work prior to that visit including a lipid panel and a thyroid function. Cyndie Cavanaugh PA-C/gala Electronically Signed By: CYNDIE CAVANAUGH PA-C On: 02/14/2014 09:21 AM Source: [facility] MHSDOLBEYNONRADSYS Document Id: [id number] CTOR UNDERWRITER SALES documented in this encounter Miscellaneous Notes Miscellaneous - Kusum Daigle - 08/21/2016 12:45 PM CDT Health Maintenance Reminder August 21, 2016 ANASTASIYA GRANADOS [address] [facility] [id number] Dear ANASTASIYA GRANADOS, We have developed a six-month overview of preventive and recommended services that apply to your unique health care needs. Some may be past due or may be coming due in the next three months. If youhave already scheduled any or all of these services, thank you. We recognize that this may or may not include all of your individualized health care needs; however, we are happy to help you with any and all primary care concerns you may have. Past Due Diabetes Screening: recommended preventive service starting at age 18 Fasting Lipid Panel: recommended preventive service starting at age 35 It may be possible to bundle some of the above services together to make your visit with us more convenient. Please call [phone] to schedule services that are past due or that may shortly become due (thank you if you have already done so). We will follow up in three to six months should you have more services to schedule at that time. If you have already received any of the listed past due or upcoming services outside of [facility], please call [phone] to add them to your medical record. You may want to consider contacting your health insurance company to make sure these services are covered and find out if there will be any [id number]-[id number] expense. If you have any questions about the services listed above, or if you are no longer receiving care from [facility], please contact us at [phone]. Thank you for partnering to provide you with the best care possible. We encourage you to set up your Patient Online Services account [email or web address], where you can communicate in a convenient way with us, schedule appointments, receive lab results and more. To set up your account, you will need your [facility] Number, which is [id number]. Thank you for choosing us, Cyndie Cavanaugh P.A.-C. and the [facility], for your health care needs! Sincerely, KUSUM DAIGLE Electronic Signature Electronically Signed By: KUSUM DAIGLE LPN On: August 21, 2016 This document has images extracted. Source: [facility] POWERCHART Document Id: [id number] Electronically signed by Francisco [facility] Senior Strategy Analyst [id number] at 09/09/2016 9:06 AM CDT Miscellaneous - Cyndie Cavanaugh P.A.-C. - 02/12/2014 12:40 PM CST Ambulatory Patient Summary [address] [id number] Visit Information Name: DEZ GRANADOSIN FER [facility] Number: [id number] Current Date: 02/12/2014 12:40:45 Physicians Attending Provider: CYNDIE CAVANAUGH PA-C Primary Care Provider: PCP, UNASSIGNED - FB ANASTASIYA GRANADOS FER has been given the following list of follow-up instructions, medication list, and patient education materials: Follow-up Instructions Your Medications Here is a list of your medications. It is important to take your medications as directed. Use a pillbox or chart to help remind you to take your medications. Please let your doctor or nurse know if you have problems taking your medications. Medication/Strength How to Take Indications/Special Instructions/Comments/Notes for Patient Medication Changes/Routing DULoxetine (Cymbalta 60 mg oral delayed release capsule) 1 cap, Oral, once a day New Routed to [facility] [address] [facility] ABBY [place] [id number] HYDROcodone-acetaminophen (Parker 5 mg-325 mg oral tablet) 1 Tablet(s), Oral, every 6 hours as neededfor Pain x 7 day(s) No more than 4,000mg acetaminophen/24hrs New Routed to [facility] LORazepam (Ativan 1 mg oral tablet) 1 Tablet(s), Oral, three times a day as needed for Anxiety x 7 day(s) New Routed to [facility] Stop Taking the Following Medications: citalopram (CeleXA 40 mg oral tablet) oxyCODONE-acetaminophen (Percocet 5/325 oral tablet) Medication list as of 02-12-14 12:40 Attention: If you have any medications at home that are not on this list, DO NOT take them until youcontact your provider for clarification. Give a copy of your medication list to your primary care provider. Update your medication list any time medications or doses are changed and carry your medication list at all times in case of emergency. Electronically Signed By: CYNDIE CAVANAUGH PA-C Signed On:12-FEB-2014 12:40:40 Your Allergies & Intolerances Substance Reaction Symptoms Category Comments penicillins Rash Drug Your Problem List Problem Status Onset Comments Disorder Rotator Cuff R Active Anxiety NOS Active Abuse Tobacco NOS Active Your Upcoming Appointments Date Time Location Provider No Appointments found Attention: Contact your local Clinic if further appointment detail needed. Your Goals/Additional instructions: Source: [facility] POWERCHART Document Id: [id number] CTOR UNDERWRITER SALES Miscellaneous - Cyndie Cavanaugh P.A.-C. - 02/12/2014 12:40 PM CST Ambulatory Discharge Medication List [address] [place] ABBY [place] [id number] Visit Information Name: ANASTASIYA GRANADOS [facility] Number: [id number] Visit Date: 02/12/2014 12:40:44 Attending Provider: CYNDIE CAVANAUGH PA-C Primary Care Provider: PCP, UNASSIGNED - ANASTASIYA ANTON has been given the following list of medications: Your Medications It is important to take your medications as directed. Use a pill box or chart to help remind you to take your medications. Please let your doctor or nurse know if you have problems taking your medications. Medication/Strength How to Take Indications/Special Instructions/Comments/Notes for Patient Medication Changes/Routing DULoxetine (Cymbalta 60 mg oral delayed release capsule) 1 cap, Oral, once a day New Routed to [place] [id number] [place], [place] [id number] HYDROcodone-acetaminophen (Parker 5 mg-325 mg oral tablet) 1 Tablet(s), Oral, every 6 hours as neededfor Pain x 7 day(s) No more than 4,000mg acetaminophen/24hrs New Routed to [facility] LORazepam (Ativan 1 mg oral tablet) 1 Tablet(s), Oral, three times a day as needed for Anxiety x 7 day(s) New Routed to [facility] Stop Taking the Following Medications: citalopram (CeleXA 40 mg oral tablet) oxyCODONE-acetaminophen (Percocet 5/325 oral tablet) Medication list as of 02-12-14 12:40 Attention: If you have any medications at home that are not on this list, DO NOT take them until youcontact your provider for clarification. Give a copy of your medication list to your primary care provider. Update your medication list any time medications or doses are changed and carry your medication list at all times in case of emergency. Electronically Signed By: CYNDIE CAVANAUGH PA-C Signed On:12-FEB-2014 12:40:40 Additional Information: Source: [facility] POWERCHART Document Id: [id number] CTOR UNDERWRITER SALES Miscellaneous - Elizabeth Martin L.P.N. - 02/12/2014 11:24 AM CST Adult Wool Hat Flanger Intake/History Adult Wool Hat Flanger Intake/History Entered On: 02/12/2014 11:27 DIRECTOR UNDERWRITER SALES Performed On: 02/12/2014 11:24 DIRECTOR UNDERWRITER SALES by ELIZABETH MARTIN Intake Chief Complaint : med check Temperature Core : 36.6 DegC(Converted to: 97.9 DegF) Peripheral Pulse Rate : 88 /min Respiratory Rate : 16 /min Systolic Blood Pressure : 130 mmHg Diastolic Blood Pressure : 84 mmHg NIBP Mean : 99 mmHg BP Location : Left upper extremity Blood Pressure Cuff Size : Large Height : 180 cm(Converted to: 5 ft 11 inch(es), 71 inch(es)) ELIZABETH MARTIN - 02/12/2014 11:24 DIRECTOR UNDERWRITER SALES General Info Information Given By : Patient Languages : Vincentian Is Patient Female and 13-50 no hysterectomy : No ELIZABETH MARTIN - 02/12/2014 11:24 DIRECTOR UNDERWRITER SALES Subjective Pain Symptoms : Yes ELIZABETH MARTIN - 02/12/2014 11:24 DIRECTOR UNDERWRITER SALES Pain Pain Assessment Grid Pain 1 Location : Shoulder (Comment: R shoulder pain [ELIZABETH MARTIN 02/12/2014 11:24 DIRECTOR UNDERWRITER SALES] ) ELIZABETH MARTIN 02/12/2014 11:24 DIRECTOR UNDERWRITER SALES Dependent Habits Tobacco Use/Currently Using : Yes Exposure to Tobacco Smoke : Patient smokes Smoking Status : Current every day smoker ELIZABETH MARTIN 02/12/2014 11:24 DIRECTOR UNDERWRITER SALES Tobacco Use Grid Cigarette Use Packs/Day : 2 ELIZABETH MARTIN - 02/12/2014 11:24 DIRECTOR UNDERWRITER SALES ID Screen Travel Within Last 21 Days : No ELIZABETH MARTIN 02/12/2014 11:24 DIRECTOR UNDERWRITER SALES Source: [facility] POWERCHART Document Id: [id number] DIRECTOR UNDERWRITER SALES!31 CTOR UNDERWRITER SALES documented in this encounter Plan of Treatment Not on filedocumented as of this encounter Visit Diagnoses Not on filedocumented in this encounter
--- OUTSIDE RECORDS SUMMARY | 2021-11-24 22:15 | XMS_ITS | Encounter Summary ---
:1975 Author Organization [facility] Address [address] [place] [address]. [place] [address] Care Team Providers Name Role Phone Aydin Morales MD Primary Care Provider Encounter Details Date Type Department Care Team Description 10/19/2020 Travel Social History Tobacco Use Types Packs/Day Years [...] / COVID-19? documented as of this encounter Plan of Treatment Not on filedocumented as of this encounter Visit Diagnoses Not on filedocumented in this encounter Care Teams Body Builder Apprentice Relationship Specialty Start Date End Date Aydin Morales MD PCP - General 11/01/09 [address] [facility] [address] [place] [address] documented as of this encounter
--- OUTSIDE RECORDS SUMMARY | 2021-11-24 22:15 | XMS_ITS | Encounter Summary ---
:1975 Author Organization [facility] Address [address] [facility] [place] [address] Care Team Providers Name Role Phone Aydin Morales MD Primary Care Provider Reason for Visit Reason Onset Date Comments MH/CD Inpatient 10/19/2020 Encounter Details Date Type Department Care Team Description 10/19/2020 Telephone [facility] Generic, Behavioral MH/ CD Inpatient Behavioral Health In shirley Skaggs MD [address] [place] [phone] Social History Tobacco Use Types Packs/Day Years [...] / COVID-19? documented as of this encounter Miscellaneous Notes Telephone Encounter - Elis Bal NP - 10/19/2020 2:27 PM CDT S: [facility], [facility], 45/M, alcohol detox B: Pt reports relapse a week ago, drinking daily and reports he feels sick when he tries to stop - starts getting the shakes and nauseous Pt reports he has a lot of supports in place at home Stress: of a child via cosleeping No hx of sz or DTs Pt denies other substances Calm and cooperative in the ED Medically cleared, eating, drinking, ambulating indep Patient cleared and ready for behavioral bed placement: Yes No covid concerns, test neg A: Voluntary R: 3A/[facility] CD admit Intake awaiting lab work 414pm - Patrice, protection analyst provider, paged 425pm - Patrice accpets Pt placed in queue 435pm - unit charge notified, 730pm for report 436pm - ED charge notified via text page documented in this encounter Plan of Treatment Not on filedocumented as of this encounter Visit Diagnoses Not on filedocumented in this encounter Care Teams Admissions Consultant Relationship Specialty Start Date End Date Aydin Morales MD PCP - General 11/01/09 [address] [facility] [address] [place] [address] documented as of this encounter
--- OUTSIDE RECORDS SUMMARY | 2021-11-24 22:15 | XMS_ITS | Clinical Summary ---
:1975 Author Organization [facility] Address [address] [place] [id number] Care Team Providers Name Role Phone Aydin Morales MD Primary Care Provider Allergies Active Allergy Reactions Severity Noted Date Comments Penicillins 11/01/2009 Unknown reactio n as child Medications Medication Sig Dispensed Refills Start Date End Date Status escitalopram Take 20 mg by 0 Act troy (LEXAPRO) 20 MG mouth daily tablet omeprazole Take 20 mg by 0 Activ e (PRILOSEC) [address] mouth daily capsule multivitamin Take 1 tablet by 0 Active (CENTRUM SILVER) mouth daily tablet acetaminophen Take 2 tablets 100 tablet 3 10/23/2020 Active (TYLENOL) 325 MG (650 mg) by mouth tabletIndications: every 6 hours as Alcohol-induced needed for mild acute pancreatitis, pain, fever or unspecified headaches complication status bisacodyl Place 1 10 suppository 0 10/23/2020 Acti ve (DULCOLAX) 10 MG suppository (10 suppositoryIndicati mg) rectally ons: daily as needed Alcohol-induced for constipation acute pancreatitis, unspecified complication status oxyCODONE Take 1 tablet (5 18 tablet 0 10/23/2020 Ac tive (ROXICODONE) 5 MG mg) by mouth tabletIndications: every 6 hours as Alcohol-induced needed for acute pancreatitis, moderate to unspecified severe pain complication status polyethylene glycol Take 17 g by 510 g 0 10/23/2020 Active (MIRALAX) 17 mouth daily as GM/Dose needed for powderIndications: constipation Alcohol-induced acute pancreatitis, unspecified complication status simethicone Take 1 tablet (80 30 tablet 0 10/23/2020 Active (MYLICON) 80 MG mg) by mouth chewable every 6 hours as tabletIndications: needed for Alcohol-induced cramping or other acute pancreatitis, (bloating) unspecified complication status Active Problems Problem Noted Date Acute pancreatitis 10/20/2020 Alcohol dependence with uncomplicated withdrawal 10/19 Social History Tobacco Use Types Packs/Day Years [...] Assigned at Date Recorded Not on file Last Filed Vital Signs Vital Sign Reading Time Taken Comments Blood Pressure 148/89 10/23/2020 8:22 AM CDT Pulse 67 10/23/2020 8:22 AM CDT Temperature 36.9 ??C (98.4 ??F) 10/23/2020 8:22 AM CDT Respiratory Rate 18 10/23/2020 8:22 AM CDT Oxygen Saturation 97% 10/23/2020 8:22 AM CDT Inhaled Oxygen Concentration - - Weight 95.3 kg (210 lb) 10/20/2020 3:28 AM CDT Height 180.3 cm (5' 11) 10/19/2020 7:27 PM CDT Body Mass Index 29.29 10/19/2020 7:27 PM CDT Plan of Treatment Health Maintenance Due Date Last Done Comments ADVANCE CARE PLANNING 1975 ANNUAL REVIEW OF HM ORDERS 1975 CT COLONOGRAPHY 1975 FIT-DNA (Cologuard) 1975 FIT 1975 FLEX SIG 1975 PREVENTIVE CARE VISIT 1975 Pneumococcal Vaccine: 09/20/1981 Pediatrics (0 to 5 Years) and At-Risk Patients (6 to 64 Years) (1 - PCV) COLONOSCOPY 09/20/1985 COLORECTAL CANCER SCREENING 09/20/1985 HIV SCREENING 09/20/1990 HEPATITIS C SCREENING 09/20/1993 LIPID 09/20/2010 COVID-19 Vaccine (2 - 08/03/2020 06/08/2020 Booster for Shelbie series) PHQ-2 (once per calendar 03/08/2021 year) INFLUENZA VACCINE (#1) 2021 11/27/2019, 02/24/2019, 04/01/2018, Additional history exists DTAP/TDAP/TD IMMUNIZATION 08/20/2022 08/20/2012, 03/22/2009 (3 - Td or Tdap) HEPATITIS B IMMUNIZATION Aged Out 06/25/2014 No long er eligible based on patient 's age to complete this topic IPV IMMUNIZATION Aged Out No longer eligi ble based on patient 's age to complete this topic MENINGITIS IMMUNIZATION Aged Out No longe r eligible based on patient 's age to complete this topic Insurance Payer Benefit Plan / Subscriber ID Effective Phone Address T ype Group Dates [facility] [id number] 2020-Prese [phone] [address] [facility] [address] [place] [address] [facility] [id number] 2020-Prese [phone] [place] [address] Juan Ramon Granados Personal/Family Self 1975 [address] (Home) [facility] [phone] Brodie [place] (Work) [phone] Juan Ramon Granados Behavioral Self 1975 [id number] (Home) [facility] [phone] Brodie [place] (Work) [phone] Advance Directives For more information, please contact: [phone] Latest Code Status on File Code Status Date Activated Date Inactivated Comments Full Code 10/20/2020 3:31 PM 10/23/2020 2:47 PM All basic an d advanced life-sustaining interventions are performed as zelalem ropriate Code status determined by: Discussion with patient/ legal de cision maker Full Code 10/19/2020 7:30 PM 10/20/2020 3:27 AM All basic an d advanced life-sustaining interventions ar e performed as appropriate Code status determined by: Unable to determine; FULL C ODE until documents or legal decision maker available Care Teams Fisher Mussel Relationship Specialty Start Date End Date Aydin Morales MD PCP - General 11/01/09 [address] [facility] [address] [place] [address]
--- OUTSIDE RECORDS SUMMARY | 2021-11-24 22:15 | XMS_ITS | Encounter Summary ---
:1975 Author Organization [facility] Address [address] [place] [address] Care Team Providers Name Role Phone Unavailable Primary Care Provider Unavailable Encounter Details Date Type Department Care Team Description 12/18/2013 Hospital Encounter HX [facility] Lidia Elizondo, WALTER, C.N.P. [address] [place] [address] (Wo rk) Social History Tobacco Use Types Packs/Day Years Used Date Smoking Tobacco: Never Assessed Sex Assigned at Date Recorded Male 10/02/2021 1:59 PM CDT documented as of this encounter Last Filed Vital Signs Vital Sign Reading Time Taken Comments Blood Pressure 136/72 12/18/2013 9:53 AM CDT Pulse 76 12/18/2013 9:53 AM CDT Temperature - - Respiratory Rate 16 12/18/2013 9:53 AM CDT Oxygen Saturation - - Inhaled Oxygen Concentration - - Weight 104 kg (228 lb 13.4 oz) 12/18/2013 9:53 AM CDT Height 180 cm (5' 10.87) 12/18/2013 9:53 AM CDT Body Mass Index 32.04 12/18/2013 9:53 AM CDT documented in this encounter H&P Notes Gail Elizondo, WALTER, C.N.P. - 12/18/2013 9:46 AM CDT [id number] CHIEF COMPLAINT/REASON FOR VISIT 1. Establish care. 2. Preop for right rotator cuff repair. HISTORY OF PRESENT ILLNESS This is Anastasiya's first visit to [facility] in [place]. He recently moved from [place], [place]. He states he injured his right shoulder playing softball this summer. He is being seen at the request of Dr. Barry for medical evaluation prior to surgery. He is scheduled for right shou lder rotator cuff repair with Dr. Barry at [facility] on 12/19/2013. Has no history of bleeding tendency or blood transfusion. MEDICATIONS Celexa 40 mg 1 daily for anxiety. Percocet 5/325 mg 1 every night at bedtime for pain. ALLERGIES Penicillins. SYSTEMS REVIEW The patient denies any visual pain or blurring, no diplopia. Denies any changes in hearing or disequilibrium. No nosebleeds or nasal discharge. No sores in the mouth or difficulty swallowing. No adenopathy in the neck or elsewhere. Denies any shortness of breath or palpitation. No angina or pressure in the chest. No nausea or vomiting. No change in bowel or bladder habits. No blood in the urine or stool. No significant arthritis. No neurologic symptoms. No concern about any skin lesions. PAST MEDICAL/SURGICAL HISTORY PAST MEDICAL HISTORY: Tobacco abuse. Anxiety. Right rotator cuff tear. PAST SURGICAL HISTORY: None. PREVENTIVE He was given a flu shot today. SOCIAL HISTORY He smokes cigarettes. Occasional alcohol. FAMILY HISTORY Father diabetes and hypertension. VITAL SIGNS Temp 37.2, pulse 76, respirations 16, blood pressure 136/72, O2 saturation 96%, height 180 cm, weight 103.8 kg, body mass index 32.04. PHYSICAL EXAMINATION GENERAL: In general, the patient is a pleasant male who appears his stated age. SKIN: Without lesions. EYES: PERRLA, EOMs intact. Fundi sharp discs. Conjunctiva and lids normal. ENT: Tympanic membranes clear bilaterally. Nasal mucosa without erythema or congestion. Mouth without erythema or exudate. LYMPH NODES: Neck: Supple, without adenopathy. Carotid pulses are equal bilaterally. THYROID: No thyromegaly. PERIPHERAL VESSELS: Femoral, dorsal, pedal and posterior tibial pulses are equal. HEART: Regular rate and rhythm without murmur. LUNGS: Clear to auscultation. Good inspiratory effort. ABDOMEN: Soft and nontender. No palpable mass. No hepatosplenomegaly. SPINE: Back straight without CVA tenderness. No cervical, thoracic or lumbar tenderness. JOINTS: Normal range of motion. EXTREMITIES: Warm and dry. No cyanosis or peripheral edema. MENTAL: Alert and oriented times three. Grossly nonfocal. NEUROLOGICAL: Reflexes 2+ and symmetrical. IMPRESSION/REPORT/PLAN Preoperative medical evaluation. Patient's active problems diagnostically and therapeutically optimized for planned procedure. Preanesthesia screening for obstructive sleep apnea completed. He is low risk with a score of 3. He will not use any aspirin, nonsteroidal anti-inflammatories or fish oil prior to surgery. He will be nothing by mouth after midnight the night before surgery and resume all of his medications after surgery. Labs,CBC and BMP. Appropriate paperwork will be completed and faxed to [facility]. . Allof his questions were answered. He is class ASA class 1. Gail Elizondo CNP/gala Electronically Signed By: GAIL ELIZONDO CNP On: 12/18/2013 11:27 AM Modified by and Electronically Signed by: GAIL ELIZONDO CNP On: 12/18/2013 11:27 AM Source: [facility] MHSDOLBEYNONRADSYS Document Id: [id number] documented in this encounter Nursing Notes Gail Elizondo APRN, C.N.P. - 12/18/2013 10:09 AM CDT Ambulatory Patient Education The following Patient Education Materials have been given to the patient: Patient Education Materials: Orthopaedics Understanding Shoulder Instability Orthopaedics Understanding Shoulder Instability The shoulder is the most flexible joint in the body. It allows you to throw a ball, scratch your back, and reach in almost any direction. But if your shoulder joint is injured, it may become unstable. This is called shoulder instability. A Healthy, Stable Shoulder The head of the arm bone (humerus) rests in a socket (glenoid), much like a golf ball fits on a marlen.Parts of the joint called stabilizers hold the humeral head and glenoid together. These include a sheet of ligaments and other tough fibers called the capsule, which encloses the humeral head and glenoid. A Loose, Unstable Shoulder The leading cause of instability is an injury that forces the humeral head out of its socket. If thehumerus pushes completely out of the joint, its called dislocation. If it only pushes partway out, its called subluxation. In both cases, the injury stretches or tears fibers in the capsule. It can also damage other parts of the joint. This makes the humeral head more likely to slip out of the glenoidagain. Your shoulder joint can become unstable in one or more directions. Making Your Shoulder Stable Again Your doctor will evaluate your shoulder. This will likely include imaging tests, such as x-rays or an MRI. Youll then discuss treatment options. These can include physical therapy, surgery, or both. After the shoulder is stabilized, proper exercise can help keep it that way. ?? [id number] [facility], [address] [place] [address], [place] [address]. All rights reserved. This information is not intended as a substitute for professional medical care. Always follow your healthcare professional's instructions. This document has images extracted. Please consider using [employer] for all your patient education needs. Source: [facility] POWERCHART Document Id: [id number] documented in this encounter Miscellaneous Notes Miscellaneous - Gail Elizondo APRN, C.N.P. - 12/18/2013 10:10 AM CDT Ambulatory Patient Summary [address] [id number] Visit Information Name: ANASTASIYA GRANADOS [facility] Number: [id number] Current Date: 12/18/2013 10:10:05 Physicians Attending Provider: GAIL ELIZONDO CNP Primary Care Provider: PCP, UNASSIGNED - FB ANASTASIYA GRANADOS has been given the following list of [...] Take Indications/Special Instructions/Comments/Notes for Patient Medication Changes/Routing citalopram (CeleXA 40 mg oral tablet) 1 Tablet(s), Oral, once a day oxyCODONE-acetaminophen (Percocet 5/325 oral tablet) 1 Tablet(s), Oral, every 6 hours as needed for Pain No more than 4,000mg acetaminophen/24hrs Stop Taking the Following Medications: Medication list as of 12-18-13 10:10 Attention: If you have any medications at home that are not on this list, DO NOT take them until youcontact your provider for clarification. Give a copy of your medication list to your primary care provider. Update your medication list any time medications or doses are changed and carry your medication list at all times in case of emergency. Electronically Signed By: GAIL ELIZONDO CNP Signed On:18-DEC-2013 10:09:37 Your Allergies & Intolerances Substance Reaction Symptoms Category Comments penicillins Rash Drug Your Problem List Problem Status Onset Comments Disorder Rotator Cuff R Active Your Upcoming Appointments Date Time Location Provider No Appointments found Attention: Contact your local Clinic if further appointment detail needed. Understanding Shoulder Instability The shoulder is the most flexible joint in the body. It allows you to throw a ball, scratch your back, and reach in almost any direction. But if your shoulder joint is injured, it may become unstable. This is called shoulder instability. A Healthy, Stable Shoulder The head of the arm bone (humerus) rests in a socket (glenoid), much like a golf ball fits on a marlen.Parts of the joint called stabilizers hold the humeral head and glenoid together. These include a sheet of ligaments and other tough fibers called the capsule, which encloses the humeral head and glenoid. A Loose, Unstable Shoulder The leading cause of instability is an injury that forces the humeral head out of its socket. If thehumerus pushes completely out of the joint, its called dislocation. If it only pushes partway out, its called subluxation. In both cases, the injury stretches or tears fibers in the capsule. It can also damage other parts of the joint. This makes the humeral head more likely to slip out of the glenoidagain. Your shoulder joint can become unstable in one or more directions. Making Your Shoulder Stable Again Your doctor will evaluate your shoulder. This will likely include imaging tests, such as x-rays or an MRI. Youll then discuss treatment options. These can include physical therapy, surgery, or both. After the shoulder is stabilized, proper exercise can help keep it that way. ?? [id number] [employer] [employer], [address] [place] [address], [place] [id number]. All rights reserved. This information is not intended as a substitute for professional medical care. Always follow your healthcare professional's instructions. Your Goals/Additional instructions: This document has images extracted. Please consider using [employer] for all your patient education needs. Source: [facility] POWERCHART Document Id: [id number] Miscellaneous - Gail Elizondo APRN, C.N.P. - 12/18/2013 10:10 AM CDT Ambulatory Discharge Medication List [address] [id number] Visit Information Name: GRANADOSDEZ OBRIENFIORDALIZA MONROE [facility] Number: [id number] Visit Date: 12/18/2013 10:10:04 Attending Provider: GAIL ELIZONDO CNP Primary Care Provider: PCP, UNASSIGNED - FB ANASTASIYA GRANADOSN has been given the following list of medications: Your Medications It is important to take your medications as directed. Use a pill box or chart to help remind you to take your medications. Please let your doctor or nurse know if you have problems taking your medications. Medication/Strength How to Take Indications/Special Instructions/Comments/Notes for Patient Medication Changes/Routing citalopram (CeleXA 40 mg oral tablet) 1 Tablet(s), Oral, once a day oxyCODONE-acetaminophen (Percocet 5/325 oral tablet) 1 Tablet(s), Oral, every 6 hours as needed for Pain No more than 4,000mg acetaminophen/24hrs Stop Taking the Following Medications: Medication list as of 12-18-13 10:10 Attention: If you have any medications at home that are not on this list, DO NOT take them until youcontact your provider for clarification. Give a copy of your medication list to your primary care provider. Update your medication list any time medications or doses are changed and carry your medication list at all times in case of emergency. Electronically Signed By: GAIL ELIZONDO TYPE BAR AND SEGMENT ASSEMBLER Signed On:18-DEC-2013 10:09:37 Additional Information: Source: [facility] POWERCHART Document Id: [id number] Miscellaneous - Evelyn Saxena C.MBelkisABelkis - 12/18/2013 10:04 AM CDT Health Assessment Health Assessment Entered On: 12/18/2013 10:05 CDT Performed On: 12/18/2013 10:04 CDT by EVELYN SAXENA Health Assessment Complete Health Assessment Complete or Modified : Annual Health Assessment Annual Health Assessment Completed : Yes EVELYN SAXENA - 12/18/2013 10:04 CDT Nutrition Nutrition Risk Factors by History Adult : None EVELYN SAXENA - 12/18/2013 10:04 CDT Functional Current Daily Living Assistance : None EVELYN SAXENA - 12/18/2013 10:04 CDT Dependent Habits Tobacco Use/Currently Using : Yes Exposure to Tobacco Smoke : Patient smokes Smoking Status : Light tobacco smoker EVELYN SAXENA - 12/18/2013 10:04 CDT Tobacco Use Grid Cigarette Use Packs/Day : 2 EVELYN SAXENA - 12/18/2013 10:04 CDT Psychosocial Domestic Abuse Concerns : None Restorationism Preference : No qualifying data available. EVELYN SAXENA - 12/18/2013 10:04 CDT Advance Directive Advanced Directives : Yes Advance Directive Type : Health care power of commercial real estate attorney EVELYN SAXENA - 12/18/2013 10:04 CDT Educ Needs Learning Style Preference Adult Grid Patient : Printed materials Family : Printed materials EVELYN SAXENA - 12/18/2013 10:04 CDT [facility] Document Id: [id number] CDT!25 Miscellaneous - Evelyn Saxena C.M.A. - 12/18/2013 9:53 AM CDT Adult Retail Solar Advisor Intake/History Adult Retail Solar Advisor Intake/History Entered On: 12/18/2013 10:00 CDT Performed On: 12/18/2013 9:53 CDT by EVELYN SAXENA Intake Chief Complaint : pre op physical; right shoulder surgery; 12/19/2013; [facility];Dr. Barry. Temperature Core : 37.2 DegC(Converted to: 99.0 DegF) Peripheral Pulse Rate : 76 /min Respiratory Rate : 16 /min Heart Rhythm : Regular Systolic Blood Pressure : 136 mmHg Diastolic Blood Pressure : 72 mmHg NIBP Mean : 93 mmHg BP Location : Left upper extremity SpO2 : 96 % Height : 180 cm(Converted to: 5 ft 11 inch(es), 71 inch(es)) Actual Weight : 103.8 kg(Converted to: 228 lb 13 oz) Dosing Weight Clinic : 103.8 kg Clinic BSA : 2.28 Body Mass Index : 32.04 kg/m2 MANJULA EVELYN BAUER - 12/18/2013 9:53 CDT General Info Information Given By : Patient Languages : Anguillan Is Patient Female and 13-50 no hysterectomy : No EVELYN SAXENA - 12/18/2013 9:53 CDT Subjective Pain Symptoms : Yes EVELYN SAXENA - 12/18/2013 9:53 CDT Pain Pain Assessment Grid Pain 1 Location : Shoulder Laterality : Right Intensity : 6 EVELYN SAXENA - 12/18/2013 9:53 CDT Dependent Habits Tobacco Use/Currently Using : No Exposure to Tobacco Smoke : Patient smokes Smoking Status : Light tobacco smoker EVELYN SAXENA - 12/18/2013 9:53 CDT Tobacco Use Grid Cigarette Use Packs/Day : 2 (Comment: cigarettes [EVELYN SAXENA - 12/18/2013 9:53 CDT] ) EVELYN SAXENA - 12/18/2013 9:53 CDT Source: [employer] Document Id: [id number] CDT!36 Miscellaneous - Evelyn Saxena C.M.A. - 12/18/2013 9:53 AM CDT Obstructive Sleep Apnea Obstructive Sleep Apnea Entered On: 12/18/2013 10:01 CDT Performed On: 12/18/2013 9:53 CDT by EVELYN SAXENA ANGELA Screening Known Obstructive Sleep Apnea : No - NOT diagnosed with ANGELA EVELYN SAXENA - 12/18/2013 9:53 CDT ANGELA Assessment Do you have high blood pressure or have you been told to take medication for high blood pressure? : No Frequency of Snoring : Rarely (1-2 times per year) Frequency of Gasping, Choking, Snorting : Never Total Number of Historical Features : 0 Neck Circumference (cm) : 40/41 Total Sleep Apnea Clinical Score Calc : 3 EVELYN SAXENA - 12/18/2013 9:53 CDT [facility] Document Id: [id number] CDT!10 documented in this encounter Plan of Treatment Not on filedocumented as of this encounter Procedures Procedure Name Priority Date/Time Associated Diagnosis Comme nts AUTOMATED Routine 12/18/2013 10:52 AM Results for this DIFFERENTIAL, B CDT procedure ar e in the results section. CBC WITH Routine 12/18/2013 10:52 AM Results for this DIFFERENTIAL, B CDT procedure ar e in the results section. BASIC METABOLIC Routine 12/18/2013 10:52 AM Resul ts for this PANEL, S/P CDT procedure are i n the results section. documented in this encounter Results Automated Differential (12/18/2013 10:52 AM CDT) P athologist Signature Absolute 4.86 1.70 - POWERCHART Neutrophils 7.00 109L Lymphocytes 1.70 0.90 - POWERCHART 2.90 X109L Monocytes 0.58 0.30 - POWERCHART 0.90 X109L Eosinophils 0.22 0.05 - POWERCHART 0.50 X109L Absolute 0.04 0.00 - POWERCHART Basophil 0.30 X109L Specimen Anatomical Collection Method Collection Time Receive d Time (Source) Location / / Volume Laterality Blood 12/18/2013 10:52 12/18/2013 AM CDT 10:52 AM CDT Gail Elizondo APRN, C.N.P. LAB BLOOD ADD-ON Performing Organization Address City/State/ZIP Code Phon e Number POWERCHART CBC with Differential (12/18/2013 10:52 AM CDT) athologist Signature Leukocytes 7.4 3.5 - 10.5 POWERCHART X109L Erythrocytes 4.60 4.32 - POWERCHART 5.72 H6035R Hemoglobin 15.6 13.5 - POWERCHART 17.5 GDL Hematocrit 43.4 38.8 - POWERCHART 50.0 MCV 94.3 81.0 - POWERCHART 95.0 FL Platelet Count 220 150 - 450 POWERCHART X109L HX RDW 12.4 11.8 - POWERCHART 15.6 HXDifferential? Auto POWERCHART Specimen (Source) Anatomical Collection Method Collection Time Re ceived Time Location / / Volume Laterality Blood 12/18/2013 10:52 AM CDT Gail Elizondo APRN, C.N.P. LAB BLOOD ADD-ON Performing Organization Address City/[facility] [[email or web address]] Code Phon e Number POWERCHART (ABNORMAL) BMP (Basic Metabolic Panel) (12/18/2013 10:52 AM CDT) athologist Signature BUN (Blood Urea 13 7 - 23 POWERCHART Nitrogen), S MGDL Creatinine 0.8 (L) 0.9 - 1.4 POWERCHART MGDL Glucose 98 POWERCHART Potassium, S 4.8 3.5 - 4.8 POWERCHART MMOLL Sodium, S 141 135 - 145 POWERCHART MMOLL Chloride, S 107 100 - 108 POWERCHART MMOLL CO2 Total 24 22 - 30 POWERCHART MMOLL Calcium, Total, 10.0 8.5 - 10.5 POWERCHART S MGDL HXeGFR (MDRD) >60 MLMIN POWERCHART eGFR >60 MLMIN POWERCHART Black/ Specimen (Source) Anatomical Collection Method Collection Time Re ceived Time Location / / Volume Laterality Blood 12/18/2013 10:52 AM CDT Gail Elizondo APRN, C.N.P. LAB BLOOD ADD-ON Performing Organization Address City/State/ZIP Code Phon e Number POWERCHART documented in this encounter Visit Diagnoses Not on filedocumented in this encounter
--- OUTSIDE RECORDS SUMMARY | 2021-11-24 22:15 | XMS_ITS | Encounter Summary ---
:1975 Author Organization [facility] Address [address] [place] [address] Care Team Providers Name Role Phone Elsewhere, Pcp Primary Care Provider Unavailable Reason for Visit Reason Comments Vomiting Encounter Details Date Type Department Care Team Description 07/22/2021 - Emergency [facility] Alcohol Abuse With Withdrawa l Uncomplicated (HCC) (Primary Dx); 07/23/[address] Elevated Liver Function Test ABBY VALLECILLO [id number] [facility] [phone] Social History Tobacco Use Types Packs/Day Years Used Date Smoking Tobacco: Every Day Sex Assigned at Date Recorded Male 10/02/2021 1:59 PM CDT documented as of this encounter Plan of Treatment Not on filedocumented as of this encounter Visit Diagnoses Diagnosis Alcohol Abuse With Withdrawal Uncomplica yasmany (HCC) - Primary Elevated Liver Function Test documented in this encounter Care Teams Manager System Relationship Specialty Start Date End Date Elsewhere, Pcp PCP - General Family Medicine 08/10/17 documented as of this encounter
--- OUTSIDE RECORDS SUMMARY | 2021-11-24 22:16 | XMS_ITS | Encounter Summary ---
:1975 Author [facility] Address [address], [place] [address] Care Team Providers Name Role Phone Aydin Morales MD Primary Care Provider Reason for Visit Reason Comments Refill Encounter Details Date Type Department Care Team Description 12/22/2013 Refill [facility] Mateus Villa MD Refill [address] [place] [address] Dr [address] [place] [address] [place] [address] [phone] (Wo rk) Social History Tobacco Use Types Packs/Day Years Used Date Smoking Tobacco: Never Assessed Sex Assigned at Date Recorded Not on file documented as of this encounter Nursing Notes Bri Mari - 12/22/2013 11:25 AM CDT Rx left at senior front end developer for machine 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 Pt. notified. Bri Mari - 12/22/2013 9:40 AM CDT Pt. s/p Right Shoulder Arthroscopic SLAP (Superior Labrum, Anterior to Posterior using 4 posterior and posterior superior 2.4 Arthrex anchors) Lesion Repair with Capsulorrhaphy Adjacent to SLAP Lesion and open subpectoral biceps tenodesis. Pt. requesting Percocet refill as will run out of medication this weekend. Pt. states he has #7 tabs remaining and pt. rates pain as 9/10 at worst. Refill authorized via SO. documented in this encounter Plan of Treatment Not on filedocumented as of this encounter Visit Diagnoses Not on filedocumented in this encounter Care Teams Tar Pot Man Relationship Specialty Start Date End Date Aydin Morales MD PCP - General 08/29/13 [address] [facility] [address] [place] [address] documented as of this encounter
--- OUTSIDE RECORDS SUMMARY | 2021-11-24 22:16 | XMS_ITS | Encounter Summary ---
:1975 Author Organization [facility] Address [address], [place] [address] Care Team Providers Name Role Phone Aydin Morales MD Primary Care Provider Encounter Details Date Type Department Care Team Description 12/18/2013 Notes/Orders [facility] Mateus Piña, Seth y, elective CENTER (Primary Dx) [address] [place] [address] Dr [address] [place] [address] [place], [place] [phone] (Wo rk) Social History Tobacco Use Types Packs/Day Years Used Date Smoking Tobacco: Never Assessed Sex Assigned at Date Recorded Not on file documented as of this encounter Plan of Treatment Not on filedocumented as of this encounter Visit Diagnoses Diagnosis Surgery, elective - Primary Unspecified elective surgery for purpose s other than remedying health states documented in this encounter Care Teams Heel Sander Relationship Specialty Start Date End Date Aydin Morales MD PCP - General 08/29/13 [address] [facility] [address] [place] [address] documented as of this encounter
--- OUTSIDE RECORDS SUMMARY | 2021-11-24 22:16 | XMS_ITS | Encounter Summary ---
:1975 Author Organization [facility] Address [address] [place] [address] Care Team Providers Name Role Phone Aydin Morales MD Primary Care Provider Reason for Visit Reason Comments SHOULDER PAIN Encounter Details Date Type Department Care Team Description 11/07/2013 Surgical Consult [facility] Erich Kirkland Pai n in joint, CENTER MD shoulder region [address] [facility] [address] [place] [address] (Primary Dx) [place] [address] [phone] Social History Tobacco Use Types Packs/Day Years Used Date Smoking Tobacco: Never Assessed Sex Assigned at Date Recorded Not on file documented as of this encounter Progress Notes Erich Kirkland MD - 11/07/2013 12:27 PM CDT Progress Notes signed by Erich Kirkland MD at 02/13/14 4591 Author: Erich Kirkland MD Service: (none) Author Type: Physician Filed: 02/13/14 2332 Note Time: 11/13/13 105 Status: Signed Bareback Rider: Erich Kirkland MD (Physician) NAME: ANASTASIYA GRANADOS MR#: [id number] CSN: [id number] AUTHENTICATING CLINICIAN: Erich Kirkland MD CONFIRM #: [id number] LOC: 711 CLINIC PROGRESS NOTE DATE OF VISIT: 11/07/2013 : 1975 Anastasiya swings by the clinic today, having had a slight mixup on appointment times. He was scheduled to see Dr. Thomas for his clinical expertise regarding labral repair and long head of the biceps tenodesis. Unfortunately, Dr. Thomas is out today. He has been rescheduled for 11/14/2013. The patient understands this. He has a question about changing his pain medication. He has been taking [place] without much relief. He has had some success in the past with Percocet and wondered whether or not he could change. I think that is very reasonable. A prescription is written for the patient and he will follow up with Dr. Thomas next week as appropriately scheduled. There should be no charge for this patient interaction as it was not truly a clinic visit. AWM:RONNIE C: R:11/07/13 13:00 CONFIRM#:[id number] OMS AND IMMIGRATION OFFICER documented in this encounter Plan of Treatment Not on filedocumented as of this encounter Visit Diagnoses Diagnosis Pain in joint, shoulder region - Primary documented in this encounter Care Teams Staff Air Defense Officer Relationship Specialty Start Date End Date Aydin Morales MD PCP - General 08/29/13 [address] [facility] 100 [place] [address] documented as of this encounter
--- OUTSIDE RECORDS SUMMARY | 2021-11-24 22:16 | XMS_ITS | Encounter Summary ---
:1975 Author Organization [facility] Address [address] [place] [address] Care Team Providers Name Role Phone Aydin Morales MD Primary Care Provider Reason for Visit Reason Onset Date Comments Refill 12/12/2020 Encounter Details Date Type Department Care Team Description 12/12/2020 Refill [facility] MYLA Isaac Bentley MD Refill [address] [facility] [address] [facility] [address] [place] [address] [place] [address] [phone] (Wo rk) Social History Tobacco Use Types Packs/Day Years Used Date Smoking Tobacco: Former Cigarettes Quit : 08/09/2013 Smokeless Tobacco: Never Alcohol Use Standard Drinks/Week Comments Yes 2 (1 standard drink = 0.6 oz pure alcoho l) Sex Assigned at Date Recorded Not on file documented as of this encounter Nursing Notes Clementina Goel RN - 12/12/2020 11:34 AM CDT Pt is s/p RIGHT knee arthroscopic partial medial meniscectomy, loose body removal, partial synovectomy, chondral debridement on 12/10/20. Pt initially took two tablets q4 hours along with tylenol and ice. He has now weaned to one tablet Q4 and thinks he can start extending this to Q5-6 hours. Pt cannot take NSAIDS due to pancreatic problems. Advised to wean down and off this this refill. Med refill pended to Sandra Mccall to review or advise. Pharmacy verified. documented in this encounter Plan of Treatment Not on filedocumented as of this encounter Visit Diagnoses Diagnosis S/P right knee arthroscopy - Primary Other postprocedural status documented in this encounter Care Teams Gravity Prospector Relationship Specialty Start Date End Date Aydin Morales MD PCP - General 08/29/13 100[address] [facility] 100 [place] [address] documented as of this encounter
--- OUTSIDE RECORDS SUMMARY | 2021-11-24 22:16 | XMS_ITS | Encounter Summary ---
:1975 Author Organization [facility] Address [address] [address] Care Team Providers Name Role Phone Aydin Morales MD Primary Care Provider Reason for Visit Reason Comments Refill Encounter Details Date Type Department Care Team Description 12/20/2013 Refill [facility]LA Mateus Villa MD Refill [address] [facility] [address] [place] [address] Dr [place] [address] [place] [address] [phone] (Wo rk) Social History Tobacco Use Types Packs/Day Years Used Date Smoking Tobacco: Never Assessed Sex Assigned at Date Recorded Not on file documented as of this encounter Nursing Notes Bri Mari - 12/20/2013 8:59 AM CDT Pt. s/p Right Shoulder Arthroscopic SLAP repair on 12/[address] Piña. of pt. calling statingpt. in severe pain, unable to sleep and has nausea and vomitting. Caller agrees to Vistaril and Zofran as authorized via SO. documented in this encounter Plan of Treatment Not on filedocumented as of this encounter Visit Diagnoses Not on filedocumented in this encounter Care Teams Protein Purification Scientist Relationship Specialty Start Date End Date Aydin Morales MD PCP - General 08/29/13 1001 [facility] [address] [place] [address] documented as of this encounter
--- OUTSIDE RECORDS SUMMARY | 2021-11-24 22:16 | XMS_ITS | Encounter Summary ---
:1975 Author Organization [facility] Address [address], [place] [address] Care Team Providers Name Role Phone Aydin Morales MD Primary Care Provider Reason for Visit Reason Comments Refill Encounter Details Date Type Department Care Team Description 12/28/2013 Refill [facility] Mateus Villa MD Refill [address] [facility] [address] [facility] [place], [place] [address] [place] [address] [phone] (Wo rk) Social History Tobacco Use Types Packs/Day Years Used Date Smoking Tobacco: Never Assessed Sex Assigned at Date Recorded Not on file documented as of this encounter Nursing Notes Bri Mari - 12/29/2013 4:04 PM CDT Rx left at front tender for clam picker. Pt. notified. Bri Mari - 12/29/2013 2:20 PM CDT Pt. called again to inquire about Percocet refill as he has to travel from [place]. Eden Gunter RN - 12/28/2013 8:49 AM CDT Received call from patient requesting refill of Percocet. Last refill:12/22/13 DOS:12/19/13 Procedure PerformedProcedure: Right Shoulder Arthroscopic SLAP (Superior Labrum, Anterior to Posterior using 4 posterior and posterior superior 2.4 Arthrex anchors) Lesion Repair with Capsulorrhaphy Adjacent to SLAP Lesion and open subpectoral biceps tenodesis. Please approve or advise documented in this encounter Plan of Treatment Not on filedocumented as of this encounter Visit Diagnoses Not on filedocumented in this encounter Care Teams Field Foreman Relationship Specialty Start Date End Date Aydin Morales MD PCP - General 08/29/13 100[address] [facility] 100 [place] [address] documented as of this encounter
--- OUTSIDE RECORDS SUMMARY | 2021-11-24 22:16 | XMS_ITS | Encounter Summary ---
:1975 Author Organization [facility] Address [address] [address] Care Team Providers Name Role Phone Aydin Morales MD Primary Care Provider Encounter Details Date Type Department Care Team Description 12/10/2020 Anesthesia Event [facility] Segundo Wetzel, [address] [facility] Kashif gross MD [place], [place] [address] [address] [facility] [phone] [place], [place] [address] (Wo rk) Anesthesia Record Procedure Summary Procedure Name Responsible Anesthesia Start Anesthesia Stop Anesthesiologist Time Time RIGHT knee Segundo Wetzel MD 12/10/20 1329 12/10/20 1446 arthroscopic partial medial meniscectomy, loose body removal, partial synovectomy, chondral debridement (Right: Knee) Events Date Time Event Comment 12/10/2020 1329 An Start 1332 An Start Data 1338 MD/ Present 1339 An Oxygen Mask Spontaneous res pirations with adequate air exchange. 1349 An Tourn Inflated 1403 MD/DO Present 1441 an stop data 1446 Care Handoff Note I discussed wi th the receiving nurse and we: 1) Identified the p atient, sim family member(s) or patient surrogat e 2) Identified the responsible practitioner 3) Reviewed the pertinent medical history 4) Discu ssed the surgical/procedure course 5) Reviewed intr a-op anesthesia management and issues during an esthesia 6) Set expectations for the post-procedu re period 7) Allowed opportunity for questions an d acknowledgement of understanding of report Electr onically signed by Kristy Penn APRN, CR NA 1442 An Stop Care transferred . Name Total midazolam 2 mg/2 mL injection (aka VERSED) 2 mg FENTanyl injection (aka SUBLIMAZE) 100 mcg propofol 10 mg/mL (aka diPRIvan) 292.01 mg ondansetron injection (aka ZOFRAN) 4 mg ketorolac 15 mg/mL injection (TORADOL) 15 mg dexamethasone 4 mg/mL injection (aka DECADRON) 4 mg phenylephrine 100 mcg/mL in NaCl 0.9% syringe (EPIFANIO-SYN EPHRINE) 300 mcg lidocaine 1% PF injection aka (XYLOCAINE) 1 mL chloroprocaine 3% PF injection (NESACAINE) 1.6 mL ceFAZolin (ANCEF) 2 g in sodium chloride 0.9 % 50 mL I VPB 2 g lactated ringers infusion 1,200 mL Agents Name O2 Blood No blood administrations on file. Lines, Drains, and Airways Type Details Placement Removal Incision/Surgical 12/10/20; 1351; Knee; 12/10/20 1351 by 1 1618 by [place], Site Anterior, Right; Frances Marinelli Disconti nue 12/24/20; 1618 RN documented in this encounter Social History Tobacco Use Types Packs/Day Years Used Date Smoking Tobacco: Former Cigarettes Quit : 08/09/2013 Smokeless Tobacco: Never Alcohol Use Standard Drinks/Week Comments Yes 2 (1 standard drink = 0.6 oz pure alcoho l) Sex Assigned at Date Recorded Not on file documented as of this encounter Miscellaneous Notes Anesthesia Postprocedure Evaluation - Segundo Wetzel MD - 12/10/2020 4:47 PM CDT [facility] Post-op Note Patient: Juan Ramon Granados Post-Op Diagnosis: Knee pain, right Procedure Performed: Procedure(s): Right - RIGHT knee arthroscopic partial medial meniscectomy, loose body removal, partial synovectomy, chondral debridement - Wound Class: 1 CLEAN Anesthesia Type: Spinal Post-op vital signs: Vitals Value Taken Time BP 140/84 12/10/20 1613 Temp 36.7 ??C (98.1 ??F) 12/10/20 1613 Pulse 64 12/10/20 1613 Resp 16 12/10/20 1613 SpO2 94 % 12/10/20 1613 Pain Score: Presence Of Pain: complains of pain/discomfort Preferred Pain Scale: number (Numeric Rating Pain Scale) Pain Rating (0-10): Rest: 3 Post-op assessment: No anesthesia complication. Patient location: Phase 2 Airway Status: Patent Cardiovascular function: Satisfactory Hydration status: Satisfactory PONV: None Level of Consciousness: Awake Fully Participates Postop Assessment: Patient tolerated procedure well. Electronically signed by: Segundo Wetzel MD 12/10/2020 4:47 PM Anesthesia Procedure Notes - Segundo Wetzel MD - 12/10/2020 1:39 PM CDT Associated Order(s): Spinal Block Spinal Anesthetic Performed by: Segundo Wetzel MD Authorizing/Supervising provider: Segundo Wetzel MD Performed by: Anesthesiologist Patient Location OR Checklist: risks and benefits discussed, IV checked, anesthesia consent, monitors and equipment checked, patient identified and pre-op evaluation Correct patient: yes Correct procedure: yes Correct position: yes Correct site: yes Patient Position: sitting Sterile prep: Betadine, Hat, Sterile gloves and Mask Insertion site: L3-4 Approach: midline Needle type: Tono Needle gauge: 27 G Needle length: 3.5 in Attempts: 1 Redirects: 1 Monitoring: facility sales and admin and continuous pulse ox CSF: adequate CSF flow from spinal needle and CSF clear Paresthesias: No Events: None Complications: none Pt tolerated procedure well Notes: Segundo Wetzel MD Signed by anesthesiologist of record who affirms this using a Present at Induction attestation Medications from procedure kit: lidocaine PF 1 % - Subcutaneous 1 mL - 12/10/2020 1:39:00 PM Medications used that are not from kit? Yes Local anesthetic: Chloroprocaine 3 % - Intrathecal 1.6 mL - 12/10/2020 1:39:00 PM Anesthesia Preprocedure Evaluation - Segundo Wetzel MD - 12/10/2020 1:05 PM CDT [facility] Pre-op Evaluation Procedure: RIGHT knee arthroscopic partial medial meniscectomy, Right HPI: 45 y.o. old male with Knee pain, right Last Fluid Intake Date: 12/09/20 Last Food Intake Date: 12/09/20 Allergies Allergen Reactions ??? Penicillins Rash Past Medical History: Diagnosis Date ??? Anxiety (HRC) ??? Gastroesophageal reflux disease Patient Active Problem List Diagnosis ??? History of arthroscopy of right knee ??? Chronic pain of right knee ??? Primary osteoarthritis of right knee ??? Sprain of anterior cruciate ligament of right knee ??? Complex tear of medial meniscus of right knee as current injury Past Surgical History: Procedure Laterality Date ??? KNEE SURGERY ??? SHOULDER SURGERY Outpatient Medications as of 12/10/2020 Medication Sig ??? citalopram (AKA CELEXA) 40 MG tablet Take 40 mg by mouth daily (every 24 hours). Facility-Administered Medications as of 12/10/2020 Medication Dose Route Frequency ??? ceFAZolin (ANCEF) 2 g in sodium chloride 0.9 % 50 mL IVPB 2 g Intravenous Once ??? chloroprocaine (NESACAINE) 3 % injection 3 mL 3 mL Regional Nerve Block Once ??? dextrose 5 % infusion Intravenous ONCE PRN ??? diphenhydrAMINE (BENADRYL) injection 25 mg 25 mg Intravenous ONCE PRN ??? fentaNYL (SUBLIMAZE) injection 25-50 mcg 25-50 mcg Intravenous Q5MIN PRN ??? HYDROmorphone (DILAUDID) injection 0.2-0.3 mg 0.2-0.3 mg Intravenous Q10MIN PRN ??? meperidine (DEMEROL) injection 12.5 mg 12.5 mg Intravenous Q5MIN PRN ??? midazolam (VERSED) injection 0.5-1 mg 0.5-1 mg Intravenous Q5MIN PRN ??? naloxone (NARCAN) injection 0.08 mg 0.08 mg Intravenous PRN ??? naloxone (NARCAN) injection 0.4 mg 0.4 mg Intravenous ONCE PRN ??? ondansetron (ZOFRAN) injection 4 mg 4 mg Intravenous Q4H PRN ??? prochlorperazine (COMPAZINE) injection 5 mg 5 mg Intravenous PRN Labs: No results found for: SODIUM, K, CHLORIDE, CO2, BUN, CREATININE, GLUCOSE No results found for: WBC, HGB, HCT, PLTS No results found for: INR Blood Bank: No results found for: ABO, ABSCR EKG: No results found for this or any previous visit. Physical Exam: BP (!) 145/89 Pulse 78 Temp 36.7 ??C (98.1 ??F) (Oral) Resp 16 Ht 5' 11 Wt 102.1 kg (225 lb) SpO2 93% BMI 31.38 kg/m?? Assessment/Plan: Review of Systems NPO Status: Acceptable. Patient does not have GERD. Patient is not a current smoker. Patient is a former smoker. The patient reports alcohol use. Patient denies any recent URI. History of PONV: No. History of motion sickness: No. Patient denies any personal or family history of anesthesia complications (PONV). Exam Mental Status: Alert and oriented. Mallampati score: III (Three). Mouth opening: Normal Thyromental Distance: > 3 finger breadths and Normal Neck Extension: Full Neck Circumference > 40 cm?: No Current airway assessment:Normal Cardiac Exam: Regular rate and rhythm. Respiratory Exam: Breath sounds clear to auscultation Assessment ASA Status: 2 . Plan Anesthesia type: Spinal Induction: Maintenance: PONV Risk Score Adult: 1 PONV Prophylaxis (planned): Ondansetron and Decadron Anesthetic plan, risks, benefits and alternatives discussed with: Patient. H&P Reviewed and Patient examined, no change observed IV access Antibiotics per surgery Electronically signed by: Segundo Wetzel MD 12/10/2020 1:05 PM documented in this encounter Plan of Treatment Not on filedocumented as of this encounter Procedures Procedure Name Priority Date/Time Associated Diagnosis Comme nts SPINAL BLOCK Routine 12/10/2020 1:39 PM Results f or this CDT procedure are i n the results section . documented in this encounter Results Spinal Block (12/10/2020 1:39 PM CDT) Narrative EXTERNAL RESULTS - 12/10/2020 1:39 PM CD T Segundo Wetzel MD ? 12/10/2020 ??2:26 PM Spinal Anesthetic Performed by: Segundo Wetzel MD Authorizing/Supervising provider: ??Segundo Guerrier MD Performed by: Anesthesiologist Patient Location OR Checklist: risks and benefits discussed, IV checked, anesthesia consent, monitors and equipment checked, patient identified and pre-op evaluation Correct patient: yes Correct procedure: yes Correct position: yes Correct site: yes Patient Position: sitting Sterile prep: Betadine, Hat, Sterile hugh ves and Mask Insertion site: L3-4 Approach: midline Needle type: Tono Needle gauge: 27 G Needle length: 3.5 in Attempts: 1 Redirects: 1 Monitoring: facility sales and admin and continuo us pulse ox CSF: ??adequate CSF flow from spinal nee dle and CSF clear Paresthesias: ??No Events: None Complications: none Pt tolerated procedure well Notes: Segundo Wetzel MD Signed by anesthesiologist of record who affirms this using a Present at Induction attestation Medications from procedure kit: lidocain e PF 1 % - Subcutaneous 1 mL - 12/10/2020 1:39:00 PM Medications used that are not from kit? ??Yes Local anesthetic: ??Chloroprocaine 3 % - Intrathecal 1.6 mL - 12/10/2020 1:39:00 PM Segundo Wetzel MD ANESTHESIA/AR Performing Organization Address City/State/ZIP Code Phon e Number EXTERNAL RESULTS documented in this encounter Visit Diagnoses Not on filedocumented in this encounter Administered Medications Inactive Administered Medications - up to 3 most recent administrations Medication Order MAR Action Action Date Dose Rate Site ceFAZolin (ANCEF) 2 g in sodium Started 12/10/2020 1:33 PM CDT 2 g chloride 0.9 % 50 mL IVPB 2 g, Intravenous, Administer over 30 Minutes, ONCE, On Wed12/10/20 at 1245, For 1 dose, Please confirm allergy to PCN. If significant allergy to PCN, then DC Ancef order and use clindamycin 900 mg IV once. Otherwise give a test dose of Ancef prior to full administration. Infuse within 60 minutes prior to incision; Re-dose 1 gram IV every 4 hours after initial dose until incision closed., Pre-op chloroprocaine (NESACAINE) 3 % injection Given 12/10/2020 1:39 PM CDT 1.6 mL Intrathecal, Starting on Wed12/10/20 at 1339, Indications: Spinal Anesthesia dexamethasone (DECADRON) injection Given 12/10/2020 1:50 PM CDT 4 mg Intravenous, Starting on Wed12/10/20 at 1350, Until Wed12/10/20 at 1446 fentaNYL (SUBLIMAZE) injection Given 12/10/2020 1:31 PM CDT 100 mcg Intravenous, Starting on Wed12/10/20 at 1331, Until Wed12/10/20 at 1446 ketorolac (TORADOL) injection Given 12/10/2020 2:32 PM CDT 15 mg Intravenous, Starting on Wed12/10/20 at 1432, Until Wed12/10/20 at 1446 lactated ringers infusion Started 12/10/2020 2:10 PM CDT Intravenous, Starting on Wed12/10/20 at 1329 Started 12/10/2020 1:29 PM CDT lidocaine PF (XYLOCAINE) 1 % injection Given 12/10/2020 1:39 PM CDT 1 mL Subcutaneous, Starting on Wed12/10/20 at 1339 midazolam (VERSED) injection Given 12/10/2020 1:31 PM CDT 2 mg Intravenous, Starting on Wed12/10/20 at 1331, Until Wed12/10/20 at 1446 ondansetron (ZOFRAN) injection Given 12/10/2020 1:50 PM CDT 4 mg Intravenous, Starting on Wed12/10/20 at 1350, Until Wed12/10/20 at 1446 phenylephrine-NaCl 0.9% (EPIFANIO-SYNEPHRINE) Given 12/10/2020 2:07 P M CDT 100 mcg injection Intravenous, Starting on Wed12/10/20 at 1346, Until Wed12/10/20 at 1446 Given 12/10/2020 1:53 PM CDT 100 mcg Given 12/10/2020 1:46 PM CDT 100 mcg propofol (DIPRIVAN) 10 mg/mL Rate/Dose 12/10/2020 2:10 60 mcg/kg/min 36.756 injection Change PM CDT mL/hr Intravenous, Starting on Wed12/10/20 at 1341, Until Wed12/10/20 at 1446 Rate/Dose Change 12/10/2020 1:50 PM CDT 50 mcg/kg/min 30.63 mL/hr Rate/Dose Change 12/10/2020 1:44 PM CDT 70 mcg/kg/min 42.882 mL/hr documented in this encounter Care Teams Poultry Cutter Relationship Specialty Start Date End Date Aydin Morales MD PCP - General 08/29/13 1001 [facility] [address] [place] [address] documented as of this encounter
--- OUTSIDE RECORDS SUMMARY | 2021-11-24 22:16 | XMS_ITS | Clinical Summary ---
:1975 [facility] Address [address] [address] Care Team Providers Name Role Phone Aydin Morales MD Primary Care Provider Source Comments You are receiving this document as you are listed as the primary care provider,follow-up provider, or the patient has been referred to you for consultation.This is in compliance with the Medicare and Medicaid EHR Incentive Program,which states Providers who transition their patient to another setting of careor provider of care or refers their patient to another provider of care shouldprovide summarycare record for each transition of care or referral. [facility] Allergies Active Allergy Reactions Severity Noted Date Comments Penicillins Rash Medium 08/30/2013 Medications Medication Sig Dispensed Refills Start Date End Date Status sennosides-docusate Take 1 Tablet by 10 Tablet 0 12/10/2020 Active sodium (SENOKOT S) mouth two times a 8.6-50 MG per tablet day. While taking narcotics Additional Information Patient not taking. Reported on 08/13/2021 acetaminophen (TYLENOL) 500 MG Take 500-1,000 mg by mouth. 0 03/24/2021 Active tablet alfuzosin (UROXATRAL) 10 MG 24 alfuzosin ER 10 mg 0 Active hour release tablet tablet,extended release 24 hr Calcium Carbonate (AKA OS-JOYCE) Chew and swallow 500 mg by 0 Active 1250 (500 Ca) MG chewable mouth. tablet FLUoxetine (PROZAC) 20 MG Take 20 mg by mouth. 0 Active capsule ketorolac (TORADOL) 10 MG Take 10 mg by mouth every 6 0 05/14/2021 Active tablet hours as needed. naltrexone (REVIA) 50 MG tablet Take 50 mg by mouth daily. 0 07/27/2021 Active ondansetron (ZOFRAN-ODT) 4 MG ondansetron 4 mg 0 Active disintegrating tablet disintegrating tablet ondansetron (ZOFRAN) 4 MG Take 4 mg by mouth every 8 0 04/04/2021 Active tablet hours as needed. pancrelipase, Xsv-Ogir-Kirf, 0 04/26/2021 Active (CREON) 56826-34333 units capseul-delayed release particles sildenafil (VIAGRA) 100 MG Take 1/2-1 tab Take 30min to 4 0 06/06/2021 Active tablet hours before sexual activity. Max 100mg/24hr. tamsulosin (FLOMAX) 0.4 MG CAPS Take 0.4 mg by mouth daily. 0 07/21/2021 Active capsule Active Problems Problem Noted Date Primary osteoarthritis of right knee 11/23/2020 Sprain of anterior cruciate ligament of right knee Complex tear of medial meniscus of right knee as curre nt injury 11/23/2020 History of arthroscopy of right knee 09/22/2020 Chronic pain of right knee 09/22/2020 Encounters Date Type Specialty Care Team Description 08/25/2021 Office Visit Orthopedics Isaac Peña MD Chronic p ain of right knee (Primary Dx); Effusion of rig ht knee; S/P right knee arthroscopy; Complex tear of medial meniscus of right knee as current injury, initial encounter; Primary osteoar thritis of right knee from Last 3 Months Social History Tobacco Use Types Packs/Day Years Used Date Smoking Tobacco: Former Cigarettes Quit : 08/09/2013 Smokeless Tobacco: Never Alcohol Use Standard Drinks/Week Comments Yes 2 (1 standard drink = 0.6 oz pure alcoho l) Sex Assigned at Date Recorded Not on file Last Filed Vital Signs Vital Sign Reading Time Taken Comments Blood Pressure 140/84 12/10/2020 4:13 PM CDT Pulse 64 12/10/2020 4:13 PM CDT Temperature 36.7 ??C (98 ??F) 08/18/2021 1:27 PM CDT Respiratory Rate 16 12/10/2020 4:13 PM CDT Oxygen Saturation 94% 12/10/2020 4:13 PM CDT Inhaled Oxygen Concentration - - Weight 93 kg (205 lb) 08/25/2021 9:14 AM CDT Height 180.3 cm (5' 11) 08/25/2021 9:14 AM CDT Body Mass Index 28.59 08/25/2021 9:14 AM CDT Plan of Treatment Health Maintenance Due Date Last Done Comments Colon Cancer Screening Plan 1975 Due Hep C Screening (Preventive 1975 Services) HepB (1) 1975 COVID-19 Vaccine (#1) 03/23/1976 HIV Screening (Preventive 1991 Services) Adult Preventive Visit 09/20/1993 Cholesterol 09/20/2010 Influenza (#1) 2021 01/02/2021, 11/27/2019, 02/24/2019, Additional history exists DTaP/Tdap/Td (3 - Tdap) 08/20/2022 08/20/2012, 03/22/2009 Zoster/Shingles (1 of 2) 09/20/2025 HepA Aged Out 06/25/2014 No longer eligib le based on patient 's age to complete this topic Pneumococcal Aged Out 03/05/2021 No longer eligib le based on patient 's age to complete this topic Hib Aged Out No longer eligib le based on patient 's age to complete this topic IPV (Polio) Aged Out No longer eligib le based on patient 's age to complete this topic MCV4 Aged Out No longer eligib le based on patient 's age to complete this topic Insurance Payer Benefit Subscriber ID Effective Phone Address Type Plan / Dates Group [facility] [id number] 2019-Pres [phone] [phone] [place] [address] Juan Ramon Granados Personal/Family Self 1975 [phone] [place] [address] Care Teams Butcher Scullion Relationship Specialty Start Date End Date Aydin Morales MD PCP - General 08/29/13 [address] [facility] [address] [place] [id number]
--- OUTSIDE RECORDS SUMMARY | 2021-11-24 22:16 | XMS_ITS | Encounter Summary ---
:1975 [facility] Address [address] [address] Care Team Providers Name Role Phone Aydin Morales MD Primary Care Provider Encounter Details Date Type Department Care Team Description 12/10/2020 Orders Only Initial Department Provider, Jessica, [facility] DEMETRIA GARRETT MD [place], [place] [address] Interface provider [phone] [place] [address] Social History Tobacco Use Types Packs/Day Years [...] Name Priority Date/Time Associated Diagnosis Comme nts LABORATORY REPORT 12/10/2020 Results fo r this procedure are in the resu lts section. documented in this encounter Results LABORATORY REPORT (12/10/2020) Narrative This result has an attachment that is no t available. Interface Provider DUMMY/OTHER/AR documented in this encounter Visit Diagnoses Not on filedocumented in this encounter Care Teams Food Service Worker [facility] Relationship Specialty Start Date End Date Aydin Morales MD PCP - General 08/29/13 [address] [facility] [address] [place] [address] documented as of this encounter
--- OUTSIDE RECORDS SUMMARY | 2021-11-24 22:16 | XMS_ITS | Encounter Summary ---
:1975 [facility] Address [address], [place] [address] Care Team Providers Name Role Phone Aydin Morales MD Primary Care Provider Reason for Visit Reason Comments Refill Encounter Details Date Type Department Care Team Description 01/04/2014 Refill [facility] Mateus Villa MD Refill [address] [facility] [address] [facility] [place] [address] [place] [address] [phone] (Wo rk) Social History Tobacco Use Types Packs/Day Years Used Date Smoking Tobacco: Never Assessed Sex Assigned at Date Recorded Not on file documented as of this encounter Plan of Treatment Not on filedocumented as of this encounter Visit Diagnoses Not on filedocumented in this encounter Care Teams Aquatic Life Laborer Relationship Specialty Start Date End Date Aydin Morales MD PCP - General 08/29/[address] [place] [address] [address] [place], [place] [id number] documented as of this encounter
--- OUTSIDE RECORDS SUMMARY | 2021-11-24 22:16 | XMS_ITS | Encounter Summary ---
:1975 [facility] Address [address] [place] [address] Care Team Providers Name Role Phone Aydin Morales MD Primary Care Provider Reason for Visit Reason Comments Refill Encounter Details Date Type Department Care Team Description 12/01/2013 Refill [facility] TER Erich Kirkland MD Refill [address] [facility] [address] [address] [place] [address] [place] [address] [place] [address] [phone] (Wo rk) Social History Tobacco Use Types Packs/Day Years Used Date Smoking Tobacco: Never Assessed Sex Assigned at Date Recorded Not on file documented as of this encounter Nursing Notes Isabel Sanchez RN - 12/01/2013 1:44 PM CDT called to the pharmacy and left message on voicemail for the refill of Stuart. Bri Mari - 12/01/2013 10:30 AM CDT Patient last seen on 11/07/2013 for right shoulder pain, no dictation to date. He had been referred toDr. Thomas who was on medical leave and was left a message he could see Dr. Haley if he preferred notto wait. Pt. has appointment scheduled with Dr. Piña on 12/06. Refill request sent by pharmacy fax for the following medication: Stuart, #40 last dispensed on 11/17. documented in this encounter Plan of Treatment Not on filedocumented as of this encounter Visit Diagnoses Not on filedocumented in this encounter Care Teams Qi Specialist Relationship Specialty Start Date End Date Aydin Morales MD PCP - General 08/29/13 [address] [facility] [address] [place] [address] documented as of this encounter
--- OUTSIDE RECORDS SUMMARY | 2021-11-24 22:16 | XMS_ITS | Encounter Summary ---
:1975 Author Organization [facility] Address [address], [place] [address] Care Team Providers Name Role Phone Aydin Morales MD Primary Care Provider Encounter Details Date Type Department Care Team Description 12/10/2020 Surgery [facility] Isaac Peña MD RIGHT knee [address] [facility] [address] [address] arthroscopic partial [place], [place] [address] [place], [place] medial meniscectomy, [address] loose body removal, (Wo rk) partial synovectomy, chondral debridement Social History Tobacco Use Types Packs/Day Years Used Date Smoking Tobacco: Former Cigarettes Quit : 08/09/2013 Smokeless Tobacco: Never Alcohol Use Standard Drinks/Week Comments Yes 2 (1 standard drink = 0.6 oz pure alcoho l) Sex Assigned at Date Recorded Not on file documented as of this encounter Last Filed Vital Signs Vital Sign Reading Time Taken Comments Blood Pressure 128/84 12/10/2020 2:50 PM CDT Pulse 60 12/10/2020 2:50 PM CDT Temperature 36.6 ??C (97.9 ??F) 12/10/2020 2:45 PM CDT Respiratory Rate 16 12/10/2020 2:50 PM CDT Oxygen Saturation 95% 12/10/2020 2:50 PM CDT Inhaled Oxygen Concentration - - Weight 102.1 kg (225 lb) 12/10/2020 12:38 PM CDT Height 180.3 cm (5' 11) 12/10/2020 12:38 PM CDT Body Mass Index 31.38 12/10/2020 12:38 PM CDT documented in this encounter Discharge Instructions Discharge InstructionsLilibeth Arellano RN - 12/10/2020 3:29 PM CDT Discharge Information The following was provided to the patient - Instruction sets: Caring for yourself after Knee Arthroscopy Collateral information: Anesthesia Discharge Instructions Deep Vein Thrombosis How to prevent and treat constipation after surgery Knee exercises following surgery Prescription Opioid Pain Medication Recover Well Understanding Pain Patient take-homes: Active Ice documented in this encounter Medications at Time of Discharge Medication Sig Dispensed Refills Start Date End Date sennosides-docusate Take 1 Tablet by mouth 10 Tablet 0 10/0 07/2020 sodium (SENOKOT S) two times a day. While 8.6-50 MG per tablet taking narcotics citalopram (AKA CELEXA) Take 40 mg by mouth 0 08/26/2021 40 MG daily (every 24 tabletIndications: Pain hours). in joint, shoulder region oxyCODONE (ROXICODONE) Take 1-2 Tablets by 10 Tablet 0 10/0 07/202012/12/2020 5 MG immediate release mouth every 4 hours as tablet needed for Pain (severe pain). documented as of this encounter Procedure Notes Isaac Peña MD - 12/10/2020 2:41 PM CDT OPERATIVE REPORT DATE OF OPERATION: 12/10/2020 : 1975 SURGEON: Isaac Peña MD CABINET WORKER: Manpreet Dixon MD (Orthopaedic Sports Medicine Fellow) Dede Mccall PA-C There was no resident available to assist with this case. A skilled nutrition services assistant was required for positioning, prepping and draping, and closure. PRE-OPERATIVE DIAGNOSES: 1. Pain??and effusion,??on-going, right knee 2.??Complex medial meniscus tear with displaced component, right knee 3. History of arthroscopic partial meniscectomy, right knee 4. Early degenerative joint disease, right knee 5. Partial ACL tear, right knee POST-OPERATIVE DIAGNOSES: 1. Pain??and effusion,??on-going, right knee 2.??Complex medial meniscus tear with displaced component, right knee 3. History of arthroscopic partial meniscectomy, right knee 4. Early degenerative joint disease, right knee 5. Partial ACL tear, right knee PROCEDURE: Arthroscopic revision partial medial meniscectomy, removal of loose body, trochlear chondroplasty, and partial synovectomy with synovial biopsy, right knee ANESTHESIA: Spinal IMPLANTS: None. HISTORY OF PRESENT ILLNESS AND INDICATIONS: Juan Ramon Granados is a 45 y.o. with a chief complaint of right knee pain. Please refer to my office notes for further details of the history and physical exam. I discussed the surgical as well as non surgical treatment options. The patient wishes to proceed with a knee arthroscopy and partial meniscectomy. I discussed the risks and potential complications of the knee arthroscopy and the ramifications of a partial meniscectomy. Specifically we discussed blood vessel or nerve injury, infection, knee stiffness/ROM issues, wound problems, persistent pain, progressive degenerative joint disease, development blood clots, or the potential need for further surgery. We also discussed the typical rehab following knee arthroscopy. We also discussed that there is some chondral/early degenerative changes in theknee and this may continue to be a pain generator in the future. DESCRIPTION OF PROCEDURE: The patient was identified in the preoperative holding area. The informed consent was signed. The operative site was identified by the patient, verified by the surgeon, marked by the surgeon. The decision was made to proceed with surgery. The patient was brought into the operating room. Pre-operative a ntibiotics were administered. After adequate anesthesia was performed, a well- padded, non sterile tourniquet was placed on the proximal thigh. The leg was placed in an arthroscopic leg escobar. The operative extremity was then prepped and draped in the usual sterile fashion with DuraPrep. The informed consent and the operative site were verified by the surgical team and the Anesthesia team. This was agreed upon and the decision was made to proceed with surgery. A Cesario bandage was wrapped on the extremity. The tourniquet was inflated. A superomedial inflow portal was made with an 11 blade. A blunt trocar with inflow cannula was inserted and the knee was insufflated. A small amount of serosanguinous fluid was drained. Anteromedial and anterolateral portals were created with an 11 blade. A 30-degree arthroscope was inserted into the a nterolateral portal and diagnostic knee arthroscopy was performed. The suprapatellar pouch and medial and lateral gutters were examined and demonstrated some areas of synovitis. A focal synovial nodulewas also noted in the lateral gutter. This was removed with a grasper and sent for pathology. Additional synovial samples were sent from the suprapatellar pouch.The chondral surfaces of the patellofemoral joint were examined. The patellar surface was within normal limits. The trochlear surface demonstrated ICRS grade 2 fissuring centrally with some unstable edges. A chondroplasty was performed with the motorized shaver to remove some unstable edges. Portions of the fat pad were debrided to improve visualization. The medial compartment was entered. The medial meniscus was examined. There was a complex unstable medial meniscus tear of the body. The mensicus was unstable and not reparable. The chondral surfaces of the medial femoral condyle and medial tibial plateau were examined. The medial femoralcondyle surface demonstrated ICRS grade 2 changes. The medial tibial plateau surface was within normal limits. A partial medial meniscectomy was performed with a curved 4.0 mm motorized shaver and arthroscopic biters. The meniscus was contoured anteriorly and posteriorly. The remaining mensicus was stable to probing. A few small chondral loose bodies were removed from the medial compartment with the motorized shaver. One large loose chondral body was also identified in the medial gutter which was ultimately removed with a grasper. The notch was examined. The visualized portions of the PCL were within normal limits. There was a partial ACL tear and this appeared to have scarred into a more verticalposition within the notch. The lateral compartment was entered. The lateral meniscus was examined. The lateral meniscus was stable to probing without tear. The chondral surface of the lateral femoral condyle and lateral tibial plateau were examined. The chondral surface of the lateral femoral condyle was within normal limits without unstable surface. The chondral surface of the lateral tibial plateauwas within normal limits without unstable surface. Attention was returned to the patellofemoral joint and gutters. A partial synovectomy was performed in these areas with a motorized shaver to remove some areas of synovitis. The medial compartment and lateral compartments were flushed again. The gutters were flushed again and the wounds were closed with a 3-0 Nylon stitch. 20 mL of 0.5% Ropivacaine was injected into the portals only. A sterile dressing was applied, that included Xeroform, 4 x 4 gauze, an ABD dressing, cast padding, and a Tubigrip wrap. The patient was awoken from anesthesia and taken to the post-anesthesia care unit in stable condition. SPONGE, NEEDLE AND INSTRUMENT COUNTS: Correct. TRANSFER TO THE PACU: Stable. TOURNIQUET TIME: Refer to the anesthesia record. POST-OPERATIVE PLAN: Routine knee arthroscopy protocol. Synovial biopsy was sent for pathology. Ice and elevate to decrease swelling. May bend knee as able. Crutches or cane as needed for gait assist. Suture removal 8-10 days. Recommend formal supervised physical therapy to help with rehabilitation. Follow up with me at the 2 month gemini post-op. Fellow: Manpreet Dixon MD Reviewed and edited by: Isaac Peña MD documented in this encounter Plan of Treatment Not on filedocumented as of this encounter Procedures Procedure Name Priority Date/Time Associated Comments Diagnosis SURGICAL PATHOLOGY Routine 12/10/2020 2:15 PM Knee pain, right Results for this CDT procedure are i n the results section. ARTHROSCOPIC 12/10/2020 1:31 PM Knee pain, right MENISCECTOMY KNEE CDT documented in this encounter Results Surgical Path (12/10/2020 2:15 PM CDT) Component Value Ref Test Analysis Performed At [facility] Method Time Signature Case Report Surgical Pathology ?Case: [id number] ? 12/11/2020 [facility] Authorizing Provider: ??Isaac Morrow MD ? Collected: ? 12/10/2020 1415 ? 10:06 AM LABO RATORY Ordering Location: ? [facility] ?Received: ?12/10/2020 1437 ? CDT Pathologist: ? Jules Maldonado MD ? Specimen: ?Knee, right, right knee synovium ? FINAL Synovium, right knee, biopsies: 12/12/19 21 [facility] Electronically DIAGNOSIS Fragments of synovium with c hronic inflammation and degenerating cartilage. 10:06 AM LABORATORY signed by YVONNE Maldonado MD on 12/11/2020 at 10:05 AM Clinical Knee pain, right 12/11/2020 [facility] Information 10:06 AM LABORATORY CDT Microscopic Microscopic 12/11/2020 [facility] Description examination is 10:06 AM LABORATORY performed. CDT Gross A: 12/11/2020 [facility] Description The specimen is received in formalin and labeled with the patient's name and Knee, right, right knee synovium . The specimen consists of 1.5 x 1.1 x 0.3 cm of mottled hurtado-red rubbery tissue fragments. 10:06 AM LABORATORY The specimen is filtered and entirely submitted 1 cassette. DV CDT Embedded 12/11/2020 [facility] Images 10:06 AM LABORATORY CDT Specimen Anatomical Collection Method Collection Time Receive d Time (Source) Location / / Volume Laterality Tissue ENTIRE KNEE REGION 12/10/2020 2:15 PM 07/2020 2:37 / Unknown CDT PM CDT Isaac Peña MD LAB PATHOLOGY Performing Organization Address City/State/ZIP Code Phon e Number [facility] [address] [place] [address] documented in this encounter Visit Diagnoses Diagnosis Knee pain, right Pain in joint, lower leg Knee pain, right Pain in joint, lower leg documented in this encounter Administered Medications Inactive Administered Medications - up to 3 most recent administrations Medication Order MAR Action Action Date Dose Rate Site dextrose 5 % infusion at 250 mL/hr, ONCE PRN, Other, for nausea if all other options have failed and patient is not diabetic., Starting on Wed12/10/20 at 1 230, For 1 dose, PACU/Recovery diphenhydrAMINE (BENADRYL) injection 25 mg 25 mg, Intravenous, ONCE PRN, Other, for Nausea or Vom iting, Starting on Wed12/10/20 at 1230, Until Wed12/10/20 at 18 18, For 1 dose, If multiple medications are ordered for nausea or vomiting - administer in the fol lowing priority based on medications ordered, effectiveness and availability: o ndansetron (ZOFRAN) > prochlorPERAZINE (COMPAZINE) > diphenhydrAMINE (BENADR YL) > hydrOXYzine HCl (VISTARIL)> ePHEDrine > scopolamine (TRANSDERM-SCOP)., PACU/Recovery fentaNYL (SUBLIMAZE) injection 25-50 mcg Given 12/10/2020 3:10 PM CDT 50 mcg 25-50 mcg, Intravenous, [id number], Other, Moderate to Severe Pain (pain score 5 and above) in the immediate postop period when faster on-set, short acting agent is desired., Starting on Wed12/10/20 at 1230, Until Wed12/10/20 at 1818, Administer every 5 minutes as needed, to a maximum cumulative dose of 250 mcg. For patients with a regional, spinal, or local anesthetic, may give for anticipated pain as the anesthetic wears off., PACU/Recovery Given 12/10/2020 2:50 PM CDT 50 mcg HYDROmorphone (DILAUDID) injection 0.2-0 .3 mg 0.2-0.3 mg, Intravenous, Q10MIN PRN, Pain, 0.2 mg IV f or Mild to Moderate pain (pain score 1-5), 0.3 mg IV for Moderate to Severe pain (pain score 6 and above) in the immediate postop period when longer acting agent is desired., Starting on Wed12/10/20 at 1230, Until Wed12/10/20 at 181, Maximum cu mulative dose is 2 mg in PACU, call Anesthesiologist if additional dosage neede d. For patients with a regional, spinal, or local anesthetic, may give for an ticipated pain as the anesthetic wears off., PACU/Recovery lactated ringers infusion Intravenous, at 30 mL/hr, CONTINUOUS, Starting on Wed12/10/20 at 1600, Pre-op meperidine (DEMEROL) injection 12.5 mg 12.5 mg, Intravenous, [id number], Shiverin g, Starting on Wed12/10/20 at 1230, Until Wed12/10/20 at 1817, For 2 doses, Maximu m cumulative dose is 25 mg. Do not give to patients receiving MAO inhibitors (e.g. phenelzine (NA RDIL), tranylcypromine (PARNATE), selegiline (ELDEPRYL))., PACU/Recovery midazolam (VERSED) injection 0.5-1 mg 0.5-1 mg, Intravenous, [id number], Anxiety , Starting on Wed12/10/20 at 1230, Until Wed12/10/20 at 1817, Maximum cumulative dose is 2 mg. TO BE GIVEN IN PACU ONLY., PACU/Recovery naloxone (NARCAN) injection 0.08 mg 0.08 mg, Intravenous, PRN, Other, For respiratory rate less than 8/minute or patient difficult to arouse, Starting on Wed12/10/20 at 1230, Until Wed12/10/20 at 1817, May repeat every 3 minutes or until patient is r esponsive to physical stimulation and is able to take deep andrea aths. Maximum cumulative dose is 0.4 mg (1 mL). Continue to observe; if no response after administering total dose of 0.4 mg notify anesthesiologist STAT., PACU/Recovery naloxone (NARCAN) injection 0.4 mg 0.4 mg, Intravenous, ONCE PRN, Opioid Re versal, Starting on Wed12/10/20 at 1230, Until Wed12/10/20 at 181, For 1 dose, F or imminent respiratory arrest. Notify MD if naloxone is given., PACU/Recovery ondansetron (ZOFRAN) injection 4 mg 4 mg, Intravenous, Q4H PRN, Nausea, Vomiting, Starting on Wed12/10/20 at 1230, Until Wed12/10/20 at 1818, If multiple medications are ordered for nausea or vomiting - administer in the following priority based on medications ordered, effectiveness and availability: ondanset olivia (ZOFRAN) > prochlorPERAZINE (COMPAZINE) > diphenhydrAMINE (BENADRYL) > hydrOXYzi ne HCl (VISTARIL)> ePHEDrine > scopolamine (TRANSDERM-SCOP)., PACU/Recovery oxyCODONE (ROXICODONE) immediate release tablet Given 12/10/2020 3:50 PM CDT 5 mg 5 mg 5 mg, Oral, Q4H PRN, Pain, Starting on Wed12/10/20 at 1544, Until Wed12/10/20 at 1818, 1-2 tablets eery 4 hours., PACU & Post-op prochlorperazine (COMPAZINE) injection 5 mg 5 mg, Intravenous, PRN, Nausea, Vomiting , Starting on Wed12/10/20 at 1230, Until Wed12/10/20 at 1818, For 2 doses, 2nd do se may be given in 15-30 minutes if first dose not effective. Maximum of 2 doses o nly. If multiple medications are ordered for nausea or vomiting - administer in t he following priority based on medications ordered, effectiveness and availability: ondansetron (ZOFRAN) > prochlorPERAZINE (COMPAZINE) > diphenhydrAMINE (BENADRYL) > hydrOXYzine HCl (VISTARIL)> ePHEDrine > scopolamine (TRANSDERM-SCOP)., PACU/Recovery ropivacaine 0.5% (5 mg/mL) (NAROPIN) Given 12/10/2020 2:35 PM CD T 20 mL Right Knee 5 MG/ML injection ONCE PRN, Starting on Wed12/10/20 at 1435, Until Wed12/10/20 at 1818, Intra-op documented in this encounter Active and Recently Administered Medications Times are shown in CDT. Scheduled Medication Order 12/08/2020 12/09/2020 12/10/2020 ceFAZolin (ANCEF) 2 g in sodium chloride 0.9 % 50 mL IVPB (COMPL ETED) 1333 (Started - Provider: Kristy Penn APRN, FIELD INSURANCE SALES MANAGER) 2 g, Intravenous, Administer over 30 Min utes, ONCE, On Wed12/10/20 at 1245, For 1 dose, Please confirm allergy to PCN. If significant allergy to PCN, then DC Ancef order and use clindamycin 900 mg IV on ce. Otherwise give a test dose of Ancef prior to full administration. Infuse within 60 minutes prior to incision; Re-dose 1 gram IV every 4 hours after initial dose until incision closed., Pre-op chloroprocaine (NESACAINE) 3 % injection 3 mL 1245 (Due) 3 mL, Regional Nerve Block, ONCE, On Wed12/10/20 at 1245, For 1 dose, Pre-op Continuous Medication Order 12/08/2020 12/09/2020 12/10/2020 lactated ringers infusion 1600 ( Due) Intravenous, at 30 mL/hr, CONTINUOUS, Starting on Wed12/10/20 at 1600, Pre-op PRN Medication Order 12/08/2020 12/09/2020 12/10/2020 dextrose 5 % infusion at 250 mL/hr, ONCE PRN, Other, for nause a if all other options have failed and patient is not diabetic., Starting on Wed12/10/20 at 1230, For 1 dose, PACU/Recovery diphenhydrAMINE (BENADRYL) injection 25 mg 25 mg, Intravenous, ONCE PRN, Other, for Nausea or Vomiting, Starting on Wed12/10/20 at 1230, Until Wed12/10/20 at 1818, For 1 dose, If multiple medications are ordered for nausea or vomiting - administ er in the following priority based on me dications ordered, effectiveness and availability: ondansetron (ZOFRAN) > prochlorPERAZINE (COMPAZINE) > diphenhydrAMINE (BENADRYL) > hydrOXYzine HCl ( STARIL)> ePHEDrine > scopolamine (TRANSDERM-SCOP)., PACU/Recover y fentaNYL (SUBLIMAZE) injection 25-50 mcg 1450 (Given - Provider: Yasmine Yeung RN)1510 (Given - Provider: Yasmine Yeung RN) 25-50 mcg, Intravenous, [id number], Other, Moderate to Severe Pain (pain score 5 and above) in the immediate postop period when faster on-set, short acting agent is desired., Starting on Wed12/10/20 at 12 30, Until Wed12/10/20 at 181, Administe r every 5 minutes as needed, to a maximum cumulative dose of 250 mcg. For patients with a regional, spinal, or local anesthetic, may give for anticipated pain as the anesthetic wears off., PACU/Recovery HYDROmorphone (DILAUDID) injection 0.2-0.3 mg 0.2-0.3 mg, Intravenous, Q10MIN PRN, Rosas n, 0.2 mg IV for Mild to Moderate pain (pain score 1-5), 0.3 mg IV for Moderate to Severe pain (pain score 6 and above) in the immediate postop period when longer acting agent is desired., Starting on T 12/10/20 at 1230, Until Wed12/10/20 at 1818, Maximum cumulative dose is 2 mg in PACU, call Anesthesiologist if additional dosage needed. For patients with a reg ional, spinal, or local anesthetic, may give for anticipated pain as the anesthetic wears off., PACU/Recovery meperidine (DEMEROL) injection 12.5 mg 12.5 mg, Intravenous, [id number], Shiverin g, Starting on Wed12/10/20 at 1230, Until Wed12/10/20 at 1818, For 2 doses, Maximum cumulative dose is 25 mg. Do not give to patients receiving MAO inhibitors (e. g. phenelzine (NARDIL), tranylcypromine (PARNATE), selegiline (ELDEPRYL))., PACU/Recovery midazolam (VERSED) injection 0.5-1 mg 0.5-1 mg, Intravenous, [id number], Anxiety , Starting on Wed12/10/20 at 1230, Until Wed12/10/20 at 1818, Maximum cumulative dose is 2 mg. TO BE GIVEN IN PACU ONLY., PACU/Recovery naloxone (NARCAN) injection 0.08 mg 0.08 mg, Intravenous, PRN, Other, For re spiratory rate less than 8/minute or patient difficult to arouse, Starting on Wed12/10/20 at 1230, Until Wed12/10/20 at 1817, May repeat every 3 minutes or until patient is responsive to physical stimul ation and is able to take deep breaths. Maximum cumulative dose is 0.4 mg (1 mL). Continue to observe; if no response after administering total dose of 0.4 mg notify anesthesiologist STAT., PACU/Recovery naloxone (NARCAN) injection 0.4 mg 0.4 mg, Intravenous, ONCE PRN, Opioid Re versal, Starting on Wed12/10/20 at 1230, Until Wed12/10/20 at 1817, For 1 dose, For imminent respiratory arrest. Notify MD if naloxone is given., PACU/Recovery ondansetron (ZOFRAN) injection 4 mg 4 mg, Intravenous, Q4H PRN, Nausea, Vomi ting, Starting on Wed12/10/20 at 1230, Until Wed12/10/20 at 1817, If multiple medications are ordered for nausea or vomiting - administer in the following priorit y based on medications ordered, effectiv eness and availability: ondansetron (ZOFRAN) > prochlorPERAZINE (COMPAZINE) > diphenhydrAMINE (BENADRYL) > hydrOXYzine HCl (VISTARIL)> ePHEDrine > scopolamine (TRANSDERM-SCOP)., PACU/Recovery oxyCODONE (ROXICODONE) immediate release tablet 5 mg 1550 (Given - Provider: Lilibeth Arellano RN - Comment: wants before long drive home.) 5 mg, Oral, Q4H PRN, Pain, Starting on T u12/10/20 at 1544, Until Wed12/10/20 at 1818, 1-2 tablets eery 4 hours., PACU & Post-op prochlorperazine (COMPAZINE) injection 5 mg 5 mg, Intravenous, PRN, Nausea, Vomiting , Starting on Wed12/10/20 at 1230, Until Wed12/10/20 at 1818, For 2 doses, 2nd dose may be given in 15-30 minutes if first dose not effective. Maximum of 2 doses only. If multiple medications are ordere d for nausea or vomiting - administer in the following priority based on medications ordered, effectiveness and availability: ondansetron (ZOFRAN) > prochlorPE RAZINE (COMPAZINE) > diphenhydrAMINE (BE NADRYL) > hydrOXYzine HCl (VISTARIL)> ePHEDrine > scopolamine (TRANSDERM-SCOP)., PACU/Recovery ropivacaine 0.5% (5 mg/mL) (NAROPIN) 5 MG/ML injection 1435 (Given - Provider: Manpreet Dixon MD) ONCE PRN, Starting on Wed12/10/20 at 1435, Until Wed12/10/20 at 1818, Intra-op documented in this encounter Care Teams Catalytic Case Operator Relationship Specialty Start Date End Date Aydin Morales MD PCP - General 08/29/13 [address] [facility] [address] [place] [address] documented as of this encounter
--- OUTSIDE RECORDS SUMMARY | 2021-11-24 22:16 | XMS_ITS | Encounter Summary ---
:1975 Author Organization [facility] Address [address], [place] [address] Care Team Providers Name Role Phone Aydin Morales MD Primary Care Provider Encounter Details Date Type Department Care Team Description 12/10/2020 Notes/Orders [facility] Isaac Bentley MD [address] [employer] [address] [place] [address] [place], [place] [address] [place] [address] [phone] (Wo rk) Social History Tobacco Use Types [...] on filedocumented in this encounter Care Teams Postal Mail Carrier Relationship Specialty Start Date End Date Aydin Morales MD PCP - General 08/29/13 [address] [facility] [address] [place], [place] [id number] documented as of this encounter
--- OUTSIDE RECORDS SUMMARY | 2021-11-24 22:16 | XMS_ITS | Encounter Summary ---
:1975 Author Organization [facility] Address [address] [place] [address] Care Team Providers Name Role Phone Aydin Morales MD Primary Care Provider Reason for Referral Procedure/Equipment (Routine) - Closed Specialty Diagnoses / Procedures Referred By Contact Refer red To Contact Diagnoses Effusion of right knee Sourav Ramirez MD Procedures MR Knee Rt WO IV Cont [address] [place], [place] [address] Referral ID Status Reason Start Date Expiration Date Visits Requ ested Visits Authorized [id number] Closed 08/13/2021 11/12/2022 1 1 Procedure/Equipment (Routine) - Incomplete Specialty Diagnoses / Procedures Referred By Contact Refer red To Contact Diagnoses Acute pain of right knee Effusion of right knee Sourav Ramirez MD Procedures XR Knee Lt 1-2 Views Comparison [address] [place] [address] Referral ID Status Reason Start Date Expiration Date Visits V isits Requested Authorized [id number] Incomplete 08/13/2021 11/12/2022 1 1 Procedure/Equipment (Routine) - Incomplete Specialty Diagnoses / Procedures Referred By Contact Refer red To Contact Diagnoses Acute pain of right knee Effusion of right knee Sourav Ramirez MD Procedures XR Knee Rt 3 Views [address] [place] [address] Referral ID Status Reason Start Date Expiration Date Visits V isits Requested Authorized [id number] Incomplete 08/13/2021 11/12/2022 1 1 Reason for Visit Reason Comments SWELLING, KNEE Right Encounter Details Date Type Department Care Team Description 08/13/2021 Office Visit [facility] Sourav Ramirez Acute p ain of right knee (Primary Dx); Urgent Care MD Amberly Effusion of right knee [address] [place] [address] [place] [phone] (Wo rk) Social History Tobacco Use Types Packs/Day Years Used Date Smoking Tobacco: Former Cigarettes Quit : 08/09/2013 Smokeless Tobacco: Never Alcohol Use Standard Drinks/Week Comments Yes 2 (1 standard drink = 0.6 oz pure alcoho l) Sex Assigned at Date Recorded Not on file documented as of this encounter Last Filed Vital Signs Vital Sign Reading Time Taken Comments Blood Pressure - - Pulse - - Temperature 36.4 ??C (97.6 ??F) 08/13/2021 12:08 PM CDT Respiratory Rate - - Oxygen Saturation - - Inhaled Oxygen Concentration - - Weight 93 kg (205 lb) 08/13/2021 12:08 PM CDT Height 180.3 cm (5' 11) 08/13/2021 12:08 PM CDT Body Mass Index 28.59 08/13/2021 12:08 PM CDT documented in this encounter Patient Instructions Patient InstructionsTuvDominic guzman, ATC - 08/13/2021 1:[address] Xochilt Ramirez MD [facility] [place] [facility] Nurse Line: [phone] Please contact Orthopedic Urgent Care line for all requests and questions. Medication Requests: Prescriptions are not filled on Weekends or on Weekdays after 3:00PM For all medication refills: Request a refill using [facility] or contact your Pharmacy To schedule appointments: [phone] Paperwork Requests: FMLA or disability paperwork can be faxed to: [phone] Medical records: [phone] (option 4) [employer] E-mail Address: [email or web address] Schedule MRI Follow up here in [facility] for results about 1 hour after test Relative rest Ice as needed - 20 minutes on, 30 minutes off Compression for comfort Elevation - Keep the injured area above the level of your heart, when possible, as it will help to reduce swelling. It is recommended to elevate 15-20 minutes, 3-4 times per day. Pain meds as needed Ibuprofen (Advil, Motrin) 200 mg/ pill- Maximum daily dose: 2400 mg Adult: Recommended starting 2-4 pills (200 mg per pill) 3 times a day as needed for pain with food Children: Max dose is 10 mg/ kg of body weight per dose. May repeat three times a day. Take with food 2.2 pounds = 1 kilogram Naproxen (Naprosyn/ Aleve) 220 mg per pill- Maximum dose a day: 1500 mg Recommended starting dose: 2 pills (220 x 2= 440 mg) twice a day. You may increase to three pills per dose as need if pain relief is insufficient for up to 4 doses. NOTE: Notify doctor if any stomach pain, throat pain, or diarrhea or other concerning symptoms occur. Acetaminophen (Tylenol, Tylenol Arthritis) Max dose a day 3000 mg (8 extra- strength 500 mg tablets aday. Acetaminophen/ Tylenol is not an anti-inflammatory. Acetaminophen/ Tylenol is used for pain and fever only. Lowest effective dose. Other pain medications have acetaminophen in the ([place], Fiorcet, Percocet). documented in this encounter Progress Notes Sourav Ramirez MD - 08/13/2021 10:50 AM CDT Acute Injury Clinic Progress Note Date of visit: 08/13/2021 Chief Complaint Patient presents with ??? SWELLING, KNEE Right HPI: Juan Ramon Granados is a 45 y.o. male who presents today for evaluation of right knee pain x 2 days. Hx of arthroscopic partial medial meniscectomy, loose body removal, partial synovectomy, chondral debridement in 12/2020. Pain started after playing softball and doing yard work. Denies any injury. Insidious onset. Pain is located around general knee, unable to localized. Has associated swelling during this time. Pain is worse with stairs. Has slight pain with bearing weight and ambulation, which worsensthe pain. Denies any feelings of instability. Has self treated with RICE. History: PMH, PSH, Medications, Allergies were reviewed ROS: No additional concerns noted as per HPI PE: Filed Vitals: 08/13/21 1208 Temp: 36.4 ??C (97.6 ??F) TempSrc: Tympanic Weight: 93 kg (205 lb) Height: 1.803 m (5' 11) General/ Constitutional: Well nourished, well developed, no apparent distress Respiratory: Normal respirations, no retractions Neurological: Oriented to person, place, and time Psychological: Normal mood and affect MSK Right Knee Exam Tenderness The patient is experiencing tenderness in the medial joint line and lateral joint line. Range of Motion Extension: normal Flexion: normal Tests Natan: Medial - positive Lateral - positive Varus: negative Valgus: negative Hannah: Anterior - negative Posterior - negative Drawer: Anterior - negative Posterior - negative Pivot shift: negative Other Sensation: normal Swelling: mild Imaging Xray of right knee Right knee: 3 views were obtained. No fracture or dislocation identified. Mild medial compartment joint space narrowing similar to previous. Joint spaces elsewhere preserved. Mild marginal osteophytes at the patella. Small joint effusion. ?? Left knee: 2 views were obtained. No acute or significant bone or joint abnormality identified. Independently reviewed by myself Assessment: ICD-10-CM 1. Acute pain of right knee M25.561 XR Knee Rt 3 Views XR Knee Lt 1-2 Views Comparison 2. Effusion of right knee M25.461 XR Knee Rt 3 Views XR Knee Lt 1-2 Views Comparison Plan -will obtain MRI to evaluate his knee effusion -Start/continue supportive care measures (rest, activity modification, ice, heat, pain meds as needed) -follow up after MRI for further dispo Sourav Ramirez MD Sports & Orthopedic Medicine [facility] Orth[facility] Ur[facility] documented in this encounter Plan of Treatment Not on filedocumented as of this encounter Results MR Knee Rt WO IV Cont (08/18/2021 12:10 PM CDT) Anatomical Region Laterality Modality Lower Extremity, Knee, Skeletal, Thigh, Leg, MSK Right Magnetic Resonance Specimen (Source) Anatomical Collection Method Collection Time Re ceived Time Location / / Volume Laterality 08/18/2021 12:10 PM CDT Narrative 08/18/2021 12:42 PM CDT EXAM: MR KNEE RT WO IV CONT LOCATION: [facility] DATE/TIME: 08/18/2021 12:10 PM INDICATION: Knee trauma, meniscal/ligame nt injury suspected, x-ray done (age >= 1y); knee effusion. COMPARISON: None. TECHNIQUE: Unenhanced. FINDINGS: MEDIAL COMPARTMENT: -Meniscus: Tear of the posterior horn an d body of the medial meniscus. There is horizontal cleavage tear of the body and a displaced flap adjacent to the root attachment. -Cartilage: Grade II cartilage loss both sides of the medial compartment. Mild reactive subchondral edema medial tibial plateau. LATERAL COMPARTMENT: -Meniscus: The lateral meniscus is intac t. -Cartilage: Slight cartilaginous irregul arity and edema both sides of the compartment. There is more focal cartilage tear along the posterior weightbearing portion of the lateral femoral condyle which i s nearly full-thickness in a region karime uring approximately 9 mm x 5 mm. PATELLOFEMORAL COMPARTMENT: -Alignment: Patella midline. No subluxat ion or tilting. -Cartilage: Cartilaginous irregularity a nd fissuring within the central aspect of the femoral trochlear sulcus. There are areas of near full-thickness cartilage loss. CRUCIATE LIGAMENTS: -ACL: Normal. -PCL: Normal. COLLATERAL LIGAMENTS: -Medial collateral ligament: Grade 1 spr ain of the MCL without tearing. -Lateral collateral ligament: Normal. POSTEROMEDIAL CORNER: -Medial gastrocnemius tendinopathy witho ut tearing. The semimembranosus tendon is intact. -Pes anserine tendons are normal. Water Registrar omedial corner complex ligaments are intact. POSTEROLATERAL CORNER: -Popliteus tendon without tearing. -Biceps femoris tendon and posterolatera l corner complex ligaments are intact. EXTENSOR MECHANISM: -Quadriceps tendon: Quadriceps tendinopa thy without tearing. -Patellar tendon: Patellar tendinopathy without tearing. -Patellofemoral ligaments and retinacula : Negative. JOINT: -Moderate effusion. BONES: -No fracture or concerning marrow replac ing lesion. SOFT TISSUES: -Popliteal cyst. IMPRESSION: 1. ??Tearing of the medial meniscus with a horizontal cleavage tear of the body and a displaced flap adjacent to the root attachment. 2. ??Grade II cartilage loss on both luis es of the medial compartment. Mild reactive subchondral edema medial tibial plateau. 3. ??Slight cartilage irregularity and e darren both sides of the lateral compartment with more a focal cartilage tear along the posterior weightbearing portion which is approximately 9 mm x 5 mm. 4. ??Cartilaginous irregularity and fiss uring within the central aspect of the femoral trochlear sulcus, but there is a near full-thickness cartilage loss. 5. ??Grade 1 sprain of MCL without teari ng. 6. ??Medial gastrocnemius tendinopathy w ithout tearing. 7. ??Popliteus tendinopathy without tear ing. 8. ??Quadriceps and patellar tendinopath y without tearing. 9. ??Moderate effusion. 10. ??Popliteal cyst. Procedure Note Jules Chowdhury MD - 08/18/2021Formatti ng of this note might be different from the original. EXAM: MR KNEE RT WO IV CONT LOCATION: [facility] DATE/TIME: 08/18/2021 12:10 PM INDICATION: Knee trauma, meniscal/ligame nt injury suspected, x-ray done (age >= 1y); knee effusion. COMPARISON: None. TECHNIQUE: Unenhanced. FINDINGS: MEDIAL COMPARTMENT: -Meniscus: Tear of the posterior horn an d body of the medial meniscus. There is horizontal cleavage tear of the body and a displaced flap adjacent to the root attachment. -Cartilage: Grade II cartilage loss both sides of the medial compartment. Mild reactive subchondral edema medial tibial plateau. LATERAL COMPARTMENT: -Meniscus: The lateral meniscus is intac t. -Cartilage: Slight cartilaginous irregul arity and edema both sides of the compartment. There is more focal cartilage tear along the posterior weightbearing portion of the lateral femoral condyle which is nearly full-thickness in a region measuring zelalem roximately 9 mm x 5 mm. PATELLOFEMORAL COMPARTMENT: -Alignment: Patella midline. No subluxat ion or tilting. -Cartilage: Cartilaginous irregularity a nd fissuring within the central aspect of the femoral trochlear sulcus. There are areas of near full-thickness cartilage loss. CRUCIATE LIGAMENTS: -ACL: Normal. -PCL: Normal. COLLATERAL LIGAMENTS: -Medial collateral ligament: Grade 1 spr ain of the MCL without tearing. -Lateral collateral ligament: Normal. POSTEROMEDIAL CORNER: -Medial gastrocnemius tendinopathy witho ut tearing. The semimembranosus tendon is intact. -Pes anserine tendons are normal. Water Registrar omedial corner complex ligaments are intact. POSTEROLATERAL CORNER: -Popliteus tendon without tearing. -Biceps femoris tendon and posterolatera l corner complex ligaments are intact. EXTENSOR MECHANISM: -Quadriceps tendon: Quadriceps tendinopa thy without tearing. -Patellar tendon: Patellar tendinopathy without tearing. -Patellofemoral ligaments and retinacula : Negative. JOINT: -Moderate effusion. BONES: -No fracture or concerning marrow replac ing lesion. SOFT TISSUES: -Popliteal cyst. IMPRESSION: 1. Tearing of the medial meniscus with a horizontal cleavage tear of the body and a displaced flap adjacent to the root attachment. 2. Grade II cartilage loss on both sides of the medial compartment. Mild reactive subchondral edema medial tibial plateau. 3. Slight cartilage irregularity and isaura ma both sides of the lateral compartment with more a focal cartilage tear along the posterior weightbearing portion which is approximately 9 mm x 5 mm. 4. Cartilaginous irregularity and fissur ing within the central aspect of the femoral trochlear sulcus, but there is a near full-thickness cartilage loss. 5. Grade 1 sprain of MCL without tearing . 6. Medial gastrocnemius tendinopathy wit hout tearing. 7. Popliteus tendinopathy without tearin g. 8. Quadriceps and patellar tendinopathy without tearing. 9. Moderate effusion. 10. Popliteal cyst. Sourav Ramirez MD RAD MRI XR Knee Lt 1-2 Views Comparison (08/13/2021 12:22 PM CDT) Anatomical Region Laterality Modality Lower Extremity, Knee Digital Radiograph y Specimen (Source) Anatomical Collection Method Collection Time Re ceived Time Location / / Volume Laterality 08/13/2021 12:22 PM CDT Impressions 08/13/2021 12:26 PM CDT COMPARISON: ??09/17/2020. FINDINGS: ?? Right knee: 3 views were obtained. No fr acture or dislocation identified. Mild medial compartment joint space narrowing similar to previous. Joint spaces elsewhere preserved. Mild marginal osteophytes at the patella. Small joint effusion. Left knee: 2 views were obtained. No acu te or significant bone or joint abnormality identified. Procedure Note Javi Sharpe MD - 08/13/2021Formatt ing of this note might be different from the original. IMPRESSION COMPARISON: 09/17/2020. FINDINGS: Right knee: 3 views were obtained. No fr acture or dislocation identified. Mild medial compartment joint space narrowing similar to previous. Joint spaces elsewhere preserved. Mild marginal osteophytes at the patella. Small joint effusion. Left knee: 2 views were obtained. No acu te or significant bone or joint abnormality identified. Sourav Ramirez MD RAD GD XR Knee Rt 3 Views (08/13/2021 12:22 PM CDT) Anatomical Region Laterality Modality Lower Extremity, Knee Digital Radiograph y Specimen (Source) Anatomical Collection Method Collection Time Re ceived Time Location / / Volume Laterality 08/13/2021 12:22 PM CDT Impressions 08/13/2021 12:26 PM CDT COMPARISON: ??09/17/2020. FINDINGS: ?? Right knee: 3 views were obtained. No fr acture or dislocation identified. Mild medial compartment joint space narrowing similar to previous. Joint spaces elsewhere preserved. Mild marginal osteophytes at the patella. Small joint effusion. Left knee: 2 views were obtained. No acu te or significant bone or joint abnormality identified. Procedure Note Javi Sharpe MD - 08/13/2021Formatt ing of this note might be different from the original. IMPRESSION COMPARISON: 09/17/2020. FINDINGS: Right knee: 3 views were obtained. No fr acture or dislocation identified. Mild medial compartment joint space narrowing similar to previous. Joint spaces elsewhere preserved. Mild marginal osteophytes at the patella. Small joint effusion. Left knee: 2 views were obtained. No acu te or significant bone or joint abnormality identified. Sourav Ramirez MD RAD GD documented in this encounter Visit Diagnoses Diagnosis Acute pain of right knee - Primary Effusion of right knee Effusion of lower leg joint Acute pain of right knee Effusion of right knee Effusion of lower leg joint Effusion of right knee Effusion of lower leg joint documented in this encounter Care Teams Honing Machine Operator Production Relationship Specialty Start Date End Date Aydin Morales MD PCP - General 08/29/13 [address] [facility] [address] [place] [address] documented as of this encounter
--- OUTSIDE RECORDS SUMMARY | 2021-11-24 22:16 | XMS_ITS | Encounter Summary ---
:1975 Author Organization [facility] Address [address] [place] [address] Care Team Providers Name Role Phone Aydin Morales MD Primary Care Provider Reason for Visit Procedure/Equipment (Routine) - Closed Specialty Diagnoses / Procedures Referred By Contact Refer red To Contact Diagnoses Chronic pain of right knee Isaac Peña MD Procedures MR Knee Rt WO IV Cont 8100 [place], [place] [address] Referral ID Status Reason Start Date Expiration Date Visits Requ ested Visits Authorized [id number] Closed 09/19/2020 12/19/2021 1 1 Encounter Details Date Type Department Care Team Description 10/08/2020 Ancillary [facility] Radiology MRI Isaac Peña MD Chronic pain of Procedure 8100 [facility] [address] [place] [address] [place] [address] [phone] Social History Tobacco Use Types Packs/Day Years [...] Name Priority Date/Time Associated Diagnosis Comme nts MR KNEE RT WO IV Routine 10/08/2020 10:57 AM Chronic pain of R esults for this CONT CDT right knee procedure are i n the results section. documented in this encounter Results MR Knee Rt WO IV Cont (10/08/2020 10:57 AM CDT) Anatomical Region Laterality Modality Lower Extremity, Knee, Skeletal, Thigh, Leg Right Magnetic Resonance Specimen (Source) Anatomical Collection Method Collection Time Re ceived Time Location / / Volume Laterality 10/08/2020 10:38 AM CDT Impressions 10/08/2020 11:46 AM CDT TECHNIQUE: ??Routine MRI of the right knee was performed without contrast. COMPARISON: ??None. FINDINGS: MEDIAL COMPARTMENT: ??Postsurgical funes es of prior partial medial meniscectomy. Residual/recurrent horizontal tearing through the medial meniscus body, with a 0.3 x 0.2 cm meniscal flap displaced into the medial meniscotibial recess along th e medial joint line (series 11, image 23). Smoothly-marginated mild chondral thinning over the medial weightbearing surface of the medial femoral condyle. 1.2 x 0 .8 cm region of partial-thickness cartil age loss and superimposed deep chondral fissuring over the medial weightbearing surface of the medial tibial plateau, with mild underlying reactive osseous edema. LATERAL COMPARTMENT: ??Mild edematous de generation of the lateral meniscus anterior root. Mildly attritional appearance of the lateral meniscus posterior root. No discrete lateral meniscus tear identifi ed. 0.5 x 0.3 cm focus of full-thickness chondral fissuring over the central weightbearing surface of the lateral femoral condyle, though with only minimal underlying reactive osseous edema. Nondisplace d 0.5 cm full-thickness chondral flap ov er the posterior aspect of the lateral tibial plateau (series 8, image 22), though without significant underlying reactive osseous edema. PATELLOFEMORAL JOINT: ??Patellar cartila ge intact. Chondral heterogeneity over the central trochlear groove proximally. 0.6 x 0.8 cm focus of partial-thickness cartilage loss at the junction of the cent ral trochlear groove and medial trochlea r groove. ??Small joint effusion with synovitis. No well-defined loose bodies are identified. Thin, lobulated, non- drainable popliteal cyst incidentally noted. LIGAMENTS AND TENDONS: ??Low signal inte nsity scarring of the anterior cruciate ligament. ??No anterior cruciate ligament tear is identified. The posterior cruciate ligament is intact. Low signal intens ity thickening/scarring of the medial co llateral ligament, reflecting sequelae of distant prior injury. The posterior oblique ligament is intact. The lateral collateral ligament complex, popliteus tendo n, and major posterior-lateral corner ca psular structures are intact. Mild edema is identified deep to the iliotibial band as it courses over the peripheral, nonarticular surface of the lateral femoral condyle. EXTENSOR MECHANISM: ??The distal quadric eps tendon is intact. The patellar tendon is also intact. The medial retinaculum, medial patellofemoral ligament, and lateral retinaculum are intact. Mild-moderat e edema infiltrates the suprapatellar fa t pad. Mild-moderate edema infiltrates the superolateral aspect of Hoffa's fat pad (series 8, image 27; series 7, image 13). No significant lateral patellar tilti ng. No significant lateral patellar over hang on the distal femur. The trochlear groove demonstrates normal morphology. The tibial tuberosity-trochlear groove distance measures roughly 1.3 cm, which is within normal limits. MARROW AND SOFT TISSUES: ??Mild osseous stress-related edema infiltrates the medial weightbearing surface of the medial tibial plateau. No acute fracture. No suspicious soft tissue mass lesion. Trace ph ysiologic fluid within the deep infrapat ellar bursa. Intermediate signal scarring identified over the anterior aspect of the patella and the proximal patellar tendon, reflecting sequelae of distant prio r injury or prior bursitis. No prepatell ar bursitis identified. IMPRESSION: ?? 1. Postsurgical changes of prior partial medial meniscectomy. 2. Residual/recurrent horizontal tearing through the medial meniscus body, with a 0.3 x 0.2 cm meniscal flap displaced into the medial meniscotibial recess along the medial joint line. 3. Mild-moderate medial compartment cart ilage loss, most prominently over the anterior weightbearing surface of the medial tibial plateau. 4. 0.6 x 0.5 x 0.8 cm focus of partial-t hickness cartilage loss at the junction of the central trochlear groove and medial trochlear groove. 5. 0.5 x 0.3 cm focus of full-thickness chondral fissuring over the central weightbearing surface of the lateral femoral condyle. 6. Mild-moderate edema within the superi or-lateral aspect of Hoffa's fat pad, nonspecific, though can be seen in patients with dynamic lateral patellar maltracking. Of note, the tibial tuberosity-trochlear groove distance is within normal limits. 7. Trace amount of edema deep to the perla otibial band as it courses over the peripheral, nonarticular surface of the lateral femoral condyle, which can be seen in patients with very mild iliotibial band friction syndrome. 8. Mild edema infiltrating the medial we ightbearing surface of the medial tibial plateau; no acute fracture. Procedure Note Mateus Lopez MD - 10/08/2020Format ting of this note might be different from the original. IMPRESSION TECHNIQUE: Routine MRI of the right knee was performed without contrast. COMPARISON: None. FINDINGS: MEDIAL COMPARTMENT: Postsurgical changes of prior partial medial meniscectomy. Residual/recurrent horizontal tearing through the medial meniscus body, with a 0.3 x 0.2 cm meniscal flap displaced into the medial meniscotibial recess along the medial lion int line (series 11, image 23). Smoothly-marginated mild chondral thinning over the medial weightbearing surface of the medial femoral condyle. 1.2 x 0.8 cm region of partial-thickness cartilage loss and sup erimposed deep chondral fissuring over the medial weightbearing surface of the medial tibial plateau, with mild underlying reactive osseous edema. LATERAL COMPARTMENT: Mild edematous dege neration of the lateral meniscus anterior root. Mildly attritional appearance of the lateral meniscus posterior root. No discrete lateral meniscus tear identified. 0.5 x 0.3 cm focus of full-thickness chondral fissuri ng over the central weightbearing surface of the lateral femoral condyle, though with only minimal underlying reactive osseous edema. Nondisplaced 0.5 cm full-thickness chondral flap over the posterior aspect of the lateral tibial plateau (series 8, image 22), though without significant underlying reactive osseous edema. PATELLOFEMORAL JOINT: Patellar cartilage intact. Chondral heterogeneity over the central trochlear groove proximally. 0.6 x 0.8 cm focus of partial-thickness cartilage loss at the junction of the central trochlear groove and medial trochlear groove. Smal l joint effusion with synovitis. No well-defined loose bodies are identified. Thin, lobulated, non-drainable popliteal cyst incidentally noted. LIGAMENTS AND TENDONS: Low signal intens ity scarring of the anterior cruciate ligament. No anterior cruciate ligament tear is identified. The posterior cruciate ligament is intact. Low signal intensity thickening/scarring of the medial collat eral ligament, reflecting sequelae of distant prior injury. The posterior oblique ligament is intact. The lateral collateral ligament complex, popliteus tendon, and major posterior-lateral corner capsular struct ures are intact. Mild edema is identified deep to the iliotibial band as it courses over the peripheral, nonarticular surface of the lateral femoral condyle. EXTENSOR MECHANISM: The distal quadricep s tendon is intact. The patellar tendon is also intact. The medial retinaculum, medial patellofemoral ligament, and lateral retinaculum are intact. Mild-moderate edema infiltrates the suprapatellar fat pad. M ild-moderate edema infiltrates the superolateral aspect of Hoffa's fat pad (series 8, image 27; series 7, image 13). No significant lateral patellar tilting. No significant lateral patellar overhang on the distal femur. T he trochlear groove demonstrates normal morphology. The tibial tuberosity-trochlear groove distance measures roughly 1.3 cm, which is within normal limits. MARROW AND SOFT TISSUES: Mild osseous st ress-related edema infiltrates the medial weightbearing surface of the medial tibial plateau. No acute fracture. No suspicious soft tissue mass lesion. Trace physiologic fluid within the deep infrapatellar bursa. Int ermediate signal scarring identified over the anterior aspect of the patella and the proximal patellar tendon, reflecting sequelae of distant prior injury or prior bursitis. No prepatellar bursitis identified. IMPRESSION: 1. Postsurgical changes of prior partial medial meniscectomy. 2. Residual/recurrent horizontal tearing through the medial meniscus body, with a 0.3 x 0.2 cm meniscal flap displaced into the medial meniscotibial recess along the medial joint line. 3. Mild-moderate medial compartment cart ilage loss, most prominently over the anterior weightbearing surface of the medial tibial plateau. 4. 0.6 x 0.5 x 0.8 cm focus of partial-t hickness cartilage loss at the junction of the central trochlear groove and medial trochlear groove. 5. 0.5 x 0.3 cm focus of full-thickness chondral fissuring over the central weightbearing surface of the lateral femoral condyle. 6. Mild-moderate edema within the superi or-lateral aspect of Hoffa's fat pad, nonspecific, though can be seen in patients with dynamic lateral patellar maltracking. Of note, the tibial tuberosity-trochlear groove distance is within normal limits. 7. Trace amount of edema deep to the perla otibial band as it courses over the peripheral, nonarticular surface of the lateral femoral condyle, which can be seen in patients with very mild iliotibial band friction syndrome. 8. Mild edema infiltrating the medial we ightbearing surface of the medial tibial plateau; no acute fracture. Isaac Peña MD RAD MRI documented in this encounter Visit Diagnoses Diagnosis Chronic pain of right knee documented in this encounter Care Teams Home Health Nurse Licensed Practical Relationship Specialty Start Date End Date Aydin Morales MD PCP - General 08/29/13 1001 [facility] 100 [place] [address] documented as of this encounter
--- OUTSIDE RECORDS SUMMARY | 2021-11-24 22:16 | XMS_ITS | Encounter Summary ---
:[address] [facility] Address [address] [place] [address] Care Team Providers Name Role Phone Aydin Morales MD Primary Care Provider Reason for Visit Reason Comments Refill Encounter Details Date Type Department Care Team Description 11/16/2013 Refill [facility] Urge nt Care Erich Kirkland MD Refill [address] [facility] [address] [place] [address] [place] [address] 1 [place] [address] [phone] (Wo rk) Social History Tobacco Use Types Packs/Day Years Used Date Smoking Tobacco: Never Assessed Sex Assigned at Date Recorded Not on file documented as of this encounter Nursing Notes Capri Stack RN - 11/17/2013 1:09 PM CDT Prescription approved per Dr. Kirkland and called to pharmacy. Patient notified. Capri Stack RN - 11/16/2013 11:12 AM CDT Patient last seen on 11/07/2013 for right shoulder pain. he had been referred to Dr. Thomas who is on medical leave and was left a message he could see Dr. Haley if he preferred not to wait. he is going to make an appointment with Dr. Piña as he is having significant pain. He is requesting refill of hispain meds. He lives in [place] and prefers not to come in to [facility] a prescription, he would likea prescription for [place]. Last prescription for [place] was on 11/07. Will pend to Dr. Kirkland for approval. documented in this encounter Plan of Treatment Not on filedocumented as of this encounter Visit Diagnoses Not on filedocumented in this encounter Care Teams Director Occupational Relationship Specialty Start Date End Date Aydin Morales MD PCP - General 08/29/13 1001 [facility] 100 [place] [address] documented as of this encounter
--- OUTSIDE RECORDS SUMMARY | 2021-11-24 22:16 | XMS_ITS | Encounter Summary ---
:1975 Author Organization [email or web address] Address [address] [place] [address] Care Team Providers Name Role Phone Aydin Morales MD Primary Care Provider Reason for Visit Reason Comments Refill Encounter Details Date Type Department Care Team Description 01/29/2014 Refill [facility] TER Mateus Piña MD Refill [address] [facility] [address] [facility] [place], [place] [address] [place] [address] [phone] (Wo rk) Social History Tobacco Use Types Packs/Day Years Used Date Smoking Tobacco: Never Assessed Sex Assigned at Date Recorded Not on file documented as of this encounter Nursing Notes Renee Stevens RN - 01/29/2014 2:06 PM CST Refill approved per provider and script placed at [place] desk. Pt notified of refill approval andalso message from provider that this would be the last refill for him. Pt verbalized understanding. GER ENTRY Renee Stevens RN - 01/29/2014 11:24 AM CST Pt called to request a [place] refill; his last refill was 12/23/13 for 40#. Pt is S/P Right Shoulder Arthroscopic SLAP; DOS was 12/19/13. Please approve or advise. GER ENTRY documented in this encounter Plan of Treatment Not on filedocumented as of this encounter Visit Diagnoses Not on filedocumented in this encounter Care Teams Inoculator Relationship Specialty Start Date End Date Aydin Morales MD PCP - General 08/29/13 1001 [facility] 100 [place] [address] documented as of this encounter
--- OUTSIDE RECORDS SUMMARY | 2021-11-24 22:16 | XMS_ITS | Encounter Summary ---
:1975 Author Organization [facility] Address [address] [place] [address] Care Team Providers Name Role Phone Aydin Morales MD Primary Care Provider Encounter Details Date Type Department Care Team Description 12/10/2020 Hospital Encounter [facility] PERI[facility]ATIVE Isaac Peña, Knee pain, right SVCS 8100 [facility] Kashif gross 8100 [facility] [place], [place] [address] [place], [place] [phone] Social History Tobacco Use Types Packs/Day Years [...] 12/10/2020 4:13 PM CDT Temperature 36.7 ??C (98.1 ??F) 12/10/2020 4:13 PM CDT Respiratory Rate 16 12/10/2020 4:13 [...] 12/10/2020 : 1975 SURGEON: Isaac Peña MD DRYWALL STRIPPER: Manpreet Dixon MD (Orthopaedic Sports Medicine Fellow) Dede Mccall PA-C There was no resident available to assist with this case. A skilled school health assistant was required for positioning, prepping and [...] None. HISTORY OF PRESENT ILLNESS AND INDICATIONS: Roderick Granados is a 45 y.o. with a [...] Component Value Ref Test Analysis Performed At [facility] Method Time Signature Case Report Surgical Pathology ?Case: [id number] ? 12/11/2020 [facility] Authorizing Provider: ??Isaac Morrow MD ? Collected: ? 12/10/2020 1415 ? 10:06 AM CRIS MACHUCA Ordering Location: ? [facility] ?Received: ?12/10/2020 1437 ? CDT Pathologist: ? Jules Maldonado MD ? Specimen: ?Knee, right, right knee synovium ? FINAL Synovium, right knee, biopsies: 12/12/19 21 [facility] Electronically DIAGNOSIS Fragments of synovium with c hronic inflammation and degenerating cartilage. 10:06 AM LABORATORY signed by YVONNE Maldonado MD on 12/11/2020 at 10:05 AM Clinical Knee pain, right 12/11/2020 [facility] Information 10:06 AM LABORATORY CDT Microscopic Microscopic 12/11/2020 [facility] Description examination is 10:06 AM LABORATORY performed. CDT Gross A: 12/11/2020 [facility] Description The specimen is received in formalin and labeled with the patient's name and Knee, right, right knee synovium . The specimen consists of 1.5 x 1.1 x 0.3 cm of mottled hurtado-red rubbery tissue fragments. 10:06 AM LABORATORY The specimen is filtered and entirely submitted 1 cassette. DV CDT Embedded 12/11/2020 [facility] Images 10:06 AM LABORATORY CDT Specimen Anatomical Collection Method Collection Time Receive d Time (Source) Location / / Volume Laterality Tissue ENTIRE KNEE REGION 12/10/2020 2:15 PM 07/2020 2:37 / Unknown CDT PM CDT Isaac Peña MD LAB PATHOLOGY Performing Organization Address City/State/ZIP Code Phon e Number [facility] [address] [place] [address] documented in this encounter Visit Diagnoses Diagnosis [...] nausea or vomiting - administer in the [facility] lowing priority based on medications ordered, effectiveness and availability: o ndansetron (ZOFRAN) > prochlorPERAZINE (COMPAZINE) > diphenhydrAMINE (BENADR YL) > hydrOXYzine HCl (VISTARIL)> ePHEDrine > scopolamine (TRANSDERM-SCOP)., PACU/Recovery fentaNYL (SUBLIMAZE) injection 25-50 mcg Given 12/10/2020 3:10 PM CDT 50 mcg 25-50 mcg, Intravenous, [id number], Other, Moderate to Severe Pain (pain score [...] (DEMEROL) injection 12.5 mg 12.5 mg, Intravenous, [id number], Shiverin g, Starting on Wed12/10/20 at 1230, Until Wed12/10/20 at 1817, For 2 doses, Maximu m cumulative dose is 25 mg. Do not give to patients receiving MAO inhibitors (e.g. phenelzine (NA RDIL), tranylcypromine (PARNATE), selegiline (ELDEPRYL))., PACU/Recovery midazolam (VERSED) injection 0.5-1 mg 0.5-1 mg, Intravenous, [id number], Anxiety , Starting on Wed12/10/20 at 1230, [...] Until Wed12/10/20 at 1817, For 1 dose, F or imminent respiratory [...] (COMPL ETED) 1333 (Started - Provider: Kristy Penn, GOLD MINER BLASTING, WIRELESS ARCHITECT) 2 g, Intravenous, Administer over 30 Min [...] Provider: Yasmine Yeung RN) 25-50 mcg, Intravenous, [id number], Other, Moderate to Severe Pain (pain score 5 and above) in the immediate postop period when faster on-set, short acting agent is desired., Starting on Wed12/10/20 at 12 30, Until Wed12/10/20 at 1817, Administe r every 5 minutes as needed, [...] T 12/10/20 at 1230, Until Wed12/10/20 at 1817, Maximum cumulative dose is 2 mg in PACU, call Anesthesiologist if additional dosage needed. For patients with a reg ional, spinal, or local anesthetic, may give for anticipated pain as the anesthetic wears off., PACU/Recovery meperidine (DEMEROL) injection 12.5 mg 12.5 mg, Intravenous, [id number], Shiverin g, Starting on Wed12/10/20 at 1230, Until Wed12/10/20 at 1818, For 2 doses, Maximum cumulative dose is 25 mg. Do not give to patients receiving MAO inhibitors (e. g. phenelzine (NARDIL), tranylcypromine (PARNATE), selegiline (ELDEPRYL))., PACU/Recovery midazolam (VERSED) injection 0.5-1 mg 0.5-1 mg, Intravenous, [id number], Anxiety , Starting on Wed12/10/20 at 1230, Until Wed12/10/20 at 181, Maximum cumulative dose is 2 mg. TO BE GIVEN IN PACU ONLY., PACU/Recovery naloxone (NARCAN) injection 0.08 mg 0.08 mg, Intravenous, PRN, Other, For re spiratory rate less than 8/minute or patient difficult to arouse, Starting on Wed12/10/20 at 1230, Until Wed12/10/20 at 1818, May repeat every 3 minutes or until [...] Until Wed12/10/20 at 1818, For 1 dose, For imminent respiratory arrest. [...] Oral, Q4H PRN, Pain, Starting on T 12/10/20 at 1544, Until Wed12/10/20 at 1818, 1-2 [...] Intra-op documented in this encounter Care Teams Clinical Staff Pharmacist Relationship Specialty Start Date End Date Aydin Morales MD PCP - General 08/29/13 1001 [facility] 100 [place] [address] documented as of this encounter
--- OUTSIDE RECORDS SUMMARY | 2021-11-24 22:16 | XMS_ITS | Encounter Summary ---
:1975 Author Organization [facility] Address [address] [place] [address] Care Team Providers Name Role Phone Aydin Morales MD Primary Care Provider Reason for Visit Procedure/Equipment (Routine) - Incomplete Specialty Diagnoses / Procedures Referred By Contact Refer red To Contact Procedures Isaac Peña MD IDAN[facility] Arthroscopy Knee Rt [address] [place] [address] Referral ID Status Reason Start Date Expiration Date Visits V isits Requested Authorized [id number] Incomplete 12/09/2020 03/10/2022 1 1 Encounter Details Date Type Department Care Team Description 12/10/2020 Ancillary Procedure [facility] Isaac Peña MD [facility] [address] [place] [address] 8100 [place], [place] [id number] [phone] (Wo rk) Social History Tobacco Use Types [...] Name Priority Date/Time Associated Diagnosis Comme nts IDANIA ARTHROSCOPY KNEE RT Routine 12/10/2020 12:22 PM CDT documented in this encounter Results IDANIA Arthroscopy Knee Rt (12/10/2020 12:22 PM CDT) Anatomical Region Laterality Modality Lower Extremity, Knee Endoscopy Specimen (Source) Anatomical Location Collection Method / Collectio n Time Received Time / Laterality Volume Isaac Peña MD RAD NON-REPORTABLES documented in this encounter Visit Diagnoses Not on filedocumented in this encounter Care Teams Program Developer Relationship Specialty Start Date End Date Aydin Morales MD PCP - General 08/29/13 1001 [facility] 100 [place] [address] documented as of this encounter
--- OUTSIDE RECORDS SUMMARY | 2021-11-24 22:16 | XMS_ITS | Encounter Summary ---
:1975 Author Organization [email or web address] Address [address], [place] [address] Care Team Providers Name Role Phone Aydin Morales MD Primary Care Provider Reason for Visit Reason Comments Refill Encounter Details Date Type Department Care Team Description 01/15/2014 Refill [facility] Mateus Villa MD Refill [address] [facility] [address] [place] [address] [place] [address] 1 [place] [address] [phone] (Wo rk) Social History Tobacco Use Types Packs/Day Years Used Date Smoking Tobacco: Never Assessed Sex Assigned at Date Recorded Not on file documented as of this encounter Nursing Notes Isabel Sanchez RN - 01/18/2014 9:55 AM CST per merchandise collector patient did picker and sorter load and unload scripts. DENTIAL SPECIALIST Eden Gunter RN - 01/16/2014 10:44 AM CST Received call from patient , checking to see if RXS are available for picker and sorter load and unload. Will call later. DENTIAL SPECIALIST Andrea Randolph RN - 01/15/2014 4:31 PM CST Patient is s/p Right Shoulder Arthroscopic SLAP Lesion Repair with Capsulorrhaphy Adjacent to SLAP Lesion and open subpectoral biceps tenodesis on 12/19. Calling to request refill on pain medicine, last received Percocet #[phone] on 01/04/14. He does feel ready to step down to the [place] as he is only taking 4 pills a day. Does request two scripts, one post-dated as he lives in [place]. DENTIAL SPECIALIST documented in this encounter Plan of Treatment Not on filedocumented as of this encounter Visit Diagnoses Not on filedocumented in this encounter Care Teams Emergency Crew Supervisor Relationship Specialty Start Date End Date Aydin Morales MD PCP - General 08/29/13 1001 [facility] 100 [place] [address] documented as of this encounter
--- OUTSIDE RECORDS SUMMARY | 2021-11-24 22:16 | XMS_ITS | Encounter Summary ---
:1975 [facility] Address [address], [place] [address] Care Team Providers Name Role Phone Aydin Morales MD Primary Care Provider Encounter Details Date Type Department Care Team Description 12/07/2013 Orders Only [facility] Mateus Villa MD [address] [place] [address] [address] [address] [place] [address] [phone] (Wo rk) Social History Tobacco Use Types Packs/Day Years Used Date Smoking Tobacco: Never Assessed Sex Assigned at Date Recorded Not on file documented as of this encounter Plan of Treatment Not on filedocumented as of this encounter Visit Diagnoses Not on filedocumented in this encounter Care Teams Multifocal Button Generator Relationship Specialty Start Date End Date Aydin Morales MD PCP - General 08/29/13 [address] [facility] [address] [place] [address] documented as of this encounter
--- OUTSIDE RECORDS SUMMARY | 2021-11-24 22:16 | XMS_ITS | Encounter Summary ---
:1975 Author Organization [facility] Address [address] [place] [address] Care Team Providers Name Role Phone Aydin Morales MD Primary Care Provider Reason for Referral Procedure/Equipment (Routine) - Closed Specialty Diagnoses / Procedures Referred By Contact Refer red To Contact Diagnoses Chronic pain of right knee Isaac Peña MD Procedures MR Knee Rt WO IV Cont [address] [facility] [address] [place] [address] Referral ID Status Reason Start Date Expiration Date Visits Requ ested Visits Authorized [id number] Closed 09/19/2020 12/19/2021 1 1 Procedure/Equipment (Routine) - Incomplete Specialty Diagnoses / Procedures Referred By Contact Refer red To Contact Diagnoses Chronic pain of right knee Isaac Peña MD Procedures XR Knee Lt 1-2 Views Comparison [address] [facility] [facility] [facility] [address] [place] [address] Referral ID Status Reason Start Date Expiration Date Visits V isits Requested Authorized [id number] Incomplete 09/19/2020 12/19/2021 1 1 Procedure/Equipment (Routine) - Incomplete Specialty Diagnoses / Procedures Referred By Contact Refer red To Contact Diagnoses Chronic pain of right knee Isaac Peña MD Procedures XR Knee Rt 3 Views [address] [facility] [place] [address] 1 Referral ID Status Reason Start Date Expiration Date Visits V isits Requested Authorized [id number] Incomplete 09/19/2020 12/19/2021 1 1 Reason for Visit Reason Comments Knee Problem right knee Encounter Details Date Type Department Care Team Description 09/19/2020 Office Visit [facility] Isaac Peña MD Chronic pain of right knee (Primary Dx); CENTER [address] [place] [address] History of arthroscopy of right knee [facility] [facility] [place] [address] [phone] (Wo rk) Social History Tobacco Use Types [...] Pressure - - Pulse - - Temperature - - Respiratory Rate - - Oxygen Saturation - - Inhaled Oxygen Concentration - - Weight 102.1 kg (225 lb) 09/19/2020 11:24 AM CDT Height 180.3 cm (5' 11) 09/19/2020 11:24 AM CDT Body Mass Index 31.38 09/19/2020 11:24 AM CDT documented in this encounter Progress Notes Isaac Peña MD - 09/19/2020 11:00 AM CDT Juan Ramon Granados [id number] 1975 [facility] Orthopaedic Surgery Consultation 09/19/2020 Chief Complaint: Right knee pain. History of Present Illness: Juan Ramon Granados is a 44 y.o. male who presents for evaluation of his right knee. This problem began in 2014, where there was an injury playing softball. When he turns to pivot and throw, he gets pain to the outside of the knee. He does experience catching and swelling. The patient experiences some swelling when he tweaks the knee. He localizes the pain on the outside part of the knee. Twisting worsens his symptoms. His knee is bothering his ability to be active and his quality of life. He also states that he and his are trying to have a child and are doing IVF. Allergies: Penicillins Current Medications: Lexapro Reviewed and updated in [facility] Past Medical History/Past Surgical History: Anxiety Right knee arthroscopy (2016, [facility]) Arthroscopy, right shoulder (12/19/2013) Social History: Patient works at [employer] in [employer], employed for 25 years. Denies illicit drug use or tobacco products, and he drinks alcohol occasionally. Exercises weekly. Enjoys intramural softball. . Lives with and son. Always wears seatbelt. Review of Systems: A 15-point review of systems obtained and is significant for anxiety and as mentioned above. Family History: [place] [facility] History Form dated 09/19/2020 was reviewed with the patient, updated, and signed;this is located in [facility] in [facility]. This will act as supplement to this note Physical Exam: Hgt: 1.803 m (5' 11) Wgt: 102.1 kg (225 lb) General: Alert, oriented, no distress. Cooperative and comfortable during exam. Right Lower Extremity: Negative straight leg raise. No hip pain with passive internal and external rotation. Extensor mechanism is intact. Active knee ROM: 0-130 degrees, tight at the extreme of flexion. Minimal patellofemoral crepitus with active knee extension. No pain with patellar grind. Negative lateral patellar apprehension sign. No ecchymosis or erythema noted about the knee. Mildly tender distal IT band No soft tissue swelling. Small knee effusion. Non tender on the medial joint line. Tenderon lateral joint line. Non tender on the pes anserine bursa. Negative Hannah's test. Negative posterior drawer test. Stable to varus and valgus stress test at 0 and 30 degrees of knee flexion. PainfulMcMurray's test, felt more laterally than medially. No click appreciated. Calf is soft to palpation.Distal neurovascular exam is within normal limits. Imaging: Radiographs (09/19/2020): Bilateral Romano, bilateral Merchant, and a lateral of the right knee. No acute fracture is seen in the right or left knee. Both patella are within the trochlear groove. There is early joint space narrowing noted in the medial compartment of the right knee. There is no joint space narrowing noted in the lateral compartment of the right knee. There is mild spurring noted in the patellofemoral jointof the right knee. There is no joint space narrowing noted in the patellofemoral joint of either knee. I ordered and independently interpreted the imaging. Results were discussed with the patient. Assessment: 1. Pain and effusion, right knee 2. Possible lateral mensicus tear, right knee 3. History of arthroscopic partial meniscectomy, right knee 4. Early degenerative joint disease, right knee Plan: We discussed the clinical and radiographic findings. His radiographs look very good. We discussed the diagnosis and questions were answered. We discussed management options. His knee seems to be limiting his ability to be active. He has a remote history of a knee arthroscopy, but he's had some new issues with this knee and it is limiting. He gets some swelling in the knee and some mechanical sensations as well. I would like to get an MR of the right knee to evaluate for a lateral mensicus tear. He would like an in-person follow up to go over the studies. In the meantime, he may do activities as tolerated. He may use OTC medications as needed. He can follow up after the MRI is obtained. Scribe Disclosure: Rachel Boland, am serving as a scribe to document services personally performed by Isaac Peña MD at this visit, based upon the provider's statements to me. All documentation has been reviewed by the aforementioned provider prior to being entered into the official medical record. Portions of this medical record were completed by a scribe. UPON MY REVIEW AND AUTHENTICATION BY ELECTRONIC SIGNATURE, this confirms (a) I performed the applicable clinical services, and (b) the recordis accurate. Isaac Peña MD documented in this encounter [...] acute fracture. Isaac Peña MD RAD MRI XR Knee Lt 1-2 Views Comparison (09/19/2020 11:37 AM CDT) Anatomical Region Laterality Modality Lower Extremity, Knee Digital Radiograph y Specimen (Source) Anatomical Location Collection Method / Collectio n Time Received Time / Laterality Volume Narrative 09/29/2020 9:30 AM CDT Bilateral Romano, bilateral Merchant, and a lateral of the right knee. No acute fracture is seen in the right o r left knee. Both patella are within the trochlear groove. There is ea rly joint space narrowing noted in the medial compartment of the right knee . There is no joint space narrowing noted in the lateral compartme nt of the right knee. There is mild spurring noted in the patellofemora l joint of the right knee. There is no joint space narrowing noted in the patellofemoral joint of either knee. Isaac Peña MD RAD GD XR Knee Rt 3 Views (09/19/2020 11:37 AM CDT) Anatomical Region Laterality Modality Lower Extremity, Knee Digital Radiograph y Specimen (Source) Anatomical Location Collection Method / Collectio n Time Received Time / Laterality Volume Narrative 09/29/2020 9:30 AM CDT Bilateral Romano, bilateral Merchant, and a lateral of the right knee. No acute fracture is seen in the right o r left knee. Both patella are within the trochlear groove. There is ea rly joint space narrowing noted in the medial compartment of the right knee . There is no joint space narrowing noted in the lateral compartme nt of the right knee. There is mild spurring noted in the patellofemora l joint of the right knee. There is no joint space narrowing noted in the patellofemoral joint of either knee. Isaac Peña MD RAD GD documented in this encounter Visit Diagnoses Diagnosis Chronic pain of right knee - Primary History of arthroscopy of right knee Other postprocedural status Chronic pain of right knee Chronic pain of right knee documented in this encounter Care Teams Skills Instructor Relationship Specialty Start Date End Date Aydin Morales MD PCP - General 08/29/13 100[address] [facility] [address] [place] [address] documented as of this encounter
--- OUTSIDE RECORDS SUMMARY | 2021-11-24 22:16 | XMS_ITS | Encounter Summary ---
:1975 [facility] Address [address], [place] [address] Care Team Providers Name Role Phone Aydin Morales MD Primary Care Provider Encounter Details Date Type Department Care Team Description 12/19/2013 Notes/Orders [facility] Mateus Villa MD [address] [place] [address] [address] [place] [address] [place] [address] [phone] (Wo rk) Social History Tobacco Use Types Packs/Day Years Used Date Smoking Tobacco: Never Assessed Sex Assigned at Date Recorded Not on file documented as of this encounter Plan of Treatment Not on filedocumented as of this encounter Visit Diagnoses Not on filedocumented in this encounter Care Teams Resource Management Planner Relationship Specialty Start Date End Date Aydin Morales MD PCP - General 08/29/13 1001 [facility] 100 [place], [place] [id number] documented as of this encounter
--- OUTSIDE RECORDS SUMMARY | 2021-11-24 22:16 | XMS_ITS | Encounter Summary ---
:1975 Author Organization [facility] Address [address] [place] [address] Care Team Providers Name Role Phone Aydin Morales MD Primary Care Provider Reason for Visit Procedure/Equipment (Routine) - Incomplete Specialty Diagnoses / Procedures Referred By Contact Refer red To Contact Diagnoses Acute pain of right knee Effusion of right knee Sourav Ramirez MD Procedures XR Knee Lt 1-2 Views Comparison [address] [facility] [address] [place] [address] Referral ID Status Reason Start Date Expiration Date Visits V isits Requested Authorized [id number] Incomplete 08/13/2021 11/12/2022 1 1 Encounter Details Date Type Department Care Team Description 08/13/2021 Ancillary [facility] Sourav Ramirez Acute pain of right knee; Procedure [address] Zhane Gaming MD Effusion of right knee Drive [address] [facility] [address] [place], [place] [address] [phone] Social History Tobacco Use Types Packs/Day Years [...] Procedure Name Priority Date/Time Associated Comments Diagnosis XR KNEE LT 1-2 VIEWS Routine 08/13/2021 12:22 PM Acute pain of right Results for this COMPARISON CDT knee procedure are in Effusion of right the result s knee section. XR KNEE RT 3 VIEWS Routine 08/13/2021 12:22 PM Acute pain of r ight Results for this CDT knee procedure are in Effusion of right the result s knee section. documented in this encounter Results XR Knee Lt 1-2 Views Comparison (08/13/2021 [...] Diagnoses Diagnosis Acute pain of right knee Effusion of right knee Effusion of lower leg joint documented in this encounter Care Teams Solution Architect Relationship Specialty Start Date End Date Aydin Morales MD PCP - General 08/29/13 1001 [facility] 100 [place] [address] documented as of this encounter
--- OUTSIDE RECORDS SUMMARY | 2021-11-24 22:16 | XMS_ITS | Encounter Summary ---
:1975 Author Organization [facility] Address [address] [place] [address] Care Team Providers Name Role Phone Aydin Morales MD Primary Care Provider Reason for Visit Reason Comments Knee Problem right MRI results Encounter Details Date Type Department Care Team Description 11/21/2020 Office Visit [facility] Isaac Peña MD Chronic pain of right knee (Primary Dx); CENTER [address] [place] [address] Complex tear of medial meniscus of right knee as current injury, initial encounter; [address] [place], [place] History of arthroscopy of ri ght knee; [place] [address] Primary osteoarthritis of right knee; [address] Sprain of anterior cruciate ligament of right knee, sequela Social History Tobacco Use Types Packs/Day Years Used Date Smoking Tobacco: Former Cigarettes Quit : 08/09/2013 Smokeless Tobacco: Never Alcohol Use Standard Drinks/Week Comments Yes 2 (1 standard drink = 0.6 oz pure alcoho l) Sex Assigned at Date Recorded Not on file documented as of this encounter Patient Instructions Patient InstructionsWhCathy vazquez, OA - 11/21/2020 9:[address] Isaac Peña MD Orthopaedic Surgeon Medication Requests: Prescriptions are not filled on weekends or on weekdays after 3:00 PM To have right knee arthroscopy, will contact patient to arrange surgery documented in this encounter Progress Notes Isaac Peña MD - 11/21/2020 9:20 AM CDT Juan Ramon Granados [id number] 1975 [facility] Orthopaedic Surgery Follow-Up 11/21/2020 Interval History: Juan Ramon Granados is a 45 y.o. male who presents for follow-up of his right knee. He was last seen on 09/19/20. Please refer to this note for further details. He has been modifying his activities and using OTC meds as needed for pain. In the interval time period, he underwent MRI examination. The knee has been having pain/flare-ups and swelling with awkward stepping. He does experience knee instabilityat time also. Today, the patient rates his pain at 4/10. Pain is medial and lateral. Physical Exam: General: Alert, oriented, no distress. Right Knee: Extensor mechanism intact. Small effusion. Mild bogginess in the pre-patellar bursa, butno erythema or ecchymosis noted. Calf is soft to palpation. Tender medial joint line. Non tender lateral joint line. Painful medial Natan's. 2A Hannah's and pivot glide, different than the contralat eral side. Negative posterior drawer. Distal neurovascular exam is grossly within normal limits. Imaging: MR of the Right Knee (10/08/2020): IMPRESSION: ?? 1. Postsurgical changes of prior partial medial meniscectomy. ?? 2. Residual/recurrent horizontal tearing through the medial meniscus body, with a 0.3 x 0.2 cm meniscal flap displaced into the medial meniscotibial recess along the medial joint line. ?? 3. Mild-moderate medial compartment cartilage loss, most prominently over the anterior weightbearingsurface of the medial tibial plateau. ?? 4. 0.6 x 0.5 x 0.8 cm focus of partial-thickness cartilage loss at the junction of the central trochlear groove and medial trochlear groove. ?? 5. 0.5 x 0.3 cm focus of full-thickness chondral fissuring over the central weightbearing surface ofthe lateral femoral condyle. ?? 6. Mild-moderate edema within the superior-lateral aspect of Hoffa's fat pad, nonspecific, though can be seen in patients with dynamic lateral patellar maltracking. Of note, the tibial tuberosity-trochlear groove distance is within normal limits. ?? 7. Trace amount of edema deep to the iliotibial band as it courses over the peripheral, nonarticularsurface of the lateral femoral condyle, which can be seen in patients with very mild iliotibial bandfriction syndrome. ?? 8. Mild edema infiltrating the medial weightbearing surface of the medial tibial plateau; no acute fracture. Results per radiology. I reviewed the imaging studies above; the results were discussed with the patient. Assessment: 1. Pain and effusion, on-going, right knee 2. Complex medial meniscus tear with displaced component, right knee 3. History of arthroscopic partial meniscectomy, right knee 4. Early degenerative joint disease, right knee 5. Partial ACL tear, right knee Plan: We discussed the clinical findings, interval history, and new imaging findings. We discussed the diagnosis and questions were answered. This problem has been on-going for quite some time now - since 2014 when he injured it. We discussed management options, including surgical and non-surgical options. We discussed the potential surgical option of an arthroscopic partial medial meniscectomy. We discussed the risks and potential complications of arthroscopic surgery including continued pain, infection,swelling, blood vessel or nerve injury, blood clot, knee stiffness, recurrent tearing, development or progression of any degenerative joint disease, or the potential need for further surgery. We discussed the ramifications of a partial meniscectomy. We discussed that there is some chondral/degenerative changes noted in the knee and this may continue to be a pain generator moving forward. We discussedthe typical rehabilitation process following surgery and questions were answered. We also discussed his ACL examination. He would like to proceed with a knee arthroscopy to remove the unstable medial meniscus tissue and then do some extensive PT. His questions were answered. At this point the patient would like to proceed with a knee arthroscopy. Scribe Disclosure: Rachel Boland, am serving as [...] as of this encounter Visit Diagnoses Diagnosis Chronic pain of right knee - Primary Complex tear of medial meniscus of right knee as current injury, initial encounter History of arthroscopy of right knee Other postprocedural status Primary osteoarthritis of right knee Primary localized osteoarthrosis, lower leg Sprain of anterior cruciate ligament of right knee, sequela documented in this encounter Care Teams Donkey Doctor Relationship Specialty Start Date End Date Aydin Morales MD PCP - General 08/29/13 1001 [facility] 100 [place] [address] documented as of this encounter
--- OUTSIDE RECORDS SUMMARY | 2021-11-24 22:16 | XMS_ITS | Encounter Summary ---
:1975 Author Organization [facility] Address [address] [place] [address] Care Team Providers Name Role Phone Aydin Morales MD Primary Care Provider Reason for Referral (Routine) - New Request Specialty Diagnoses / Procedures Referred By Contact Refer red To Contact Diagnoses Chronic pain of right knee Effusion of right knee S/P right knee arthroscopy Complex tear of medial meniscus of right knee as current injury, initial encounter Primary osteoarthritis of right knee Isaac Peña MD Procedures Triamcinolone Acet Inj Nos: (per 10 mg) [address] [facility] [place], [place] [address] Referral ID Status Reason Start Date Expiration Date Visits V isits Requested Authorized [id number] New Request 08/26/2021 11/25/2022 1 1 Reason for Visit Reason Comments KNEE PAIN Right knee Consult/Transfer Care (Routine) - New Request Specialty Diagnoses / Procedures Referred By Contact Refer red To Contact Diagnoses Acute pain of right knee Anupam Mclain DO [address] [place], [place] [address] Referral ID Status Reason Start Date Expiration Date Visits V isits Requested Authorized [id number] New Request 08/18/2021 11/17/2022 1 1 Encounter Details Date Type Department Care Team Description 08/25/2021 Office Visit Isaac Bedolla B, MD Chronic pain of right knee (Primary Dx); CENTER [address] [facility] [address] Effusion of right knee; [address] [place], [place] S/P right knee arthroscopy; [place] [address] Complex tear of medial meniscus of right knee as current injury, initial encounter; [id number] Primary osteoarthritis of ri ght knee Social History Tobacco Use Types Packs/Day Years [...] Mass Index 28.59 08/25/2021 9:14 AM CDT documented in this encounter Patient Instructions Patient InstructionsParSommer ordoñez Crys - 08/25/2021 9:14 AM CDT Thank you for Choosing [facility] for your health care visit today. Dr. Isaac Peña MD Orthopaedic Surgeon Medication Requests: Prescriptions are not filled on weekends or on weekdays after 3:00 PM. For all medication refills: Request a refill using [employer] or contact your pharmacy. What is Know Your Cost? Know Your Cost is a service for patients and patient/members to call and receive personalized cost information and estimates across our care group. The phone number is (COST) Wednesday - Wednesday 8 AM to 5 PM Advanced Imaging Scheduling: To schedule an MRI, Ultrasound, or Image guided injection at [facility] please call [phone]. To schedule an MRI or CT at a [facility] location please call [phone]. [facility] [facility] [employer] [address] [place] [address] (Phone) Email: [email or web address] Release of Information: Radiology/Imaging [address] [place] [address] (Phone) Health Information Management [address] [place] [address] (Phone) [employer] documented in this encounter Progress Notes Isaac Peña MD - 08/25/2021 9:10 AM CDT Juan Ramon Granados [id number] 1975 [facility] Orthopaedic Surgery Follow-Up 08/25/2021 Interval History: Juan Ramon Granados is a 45 y.o. male who presents for follow-up of his right knee. The patient is well known to me and I have done an arthroscopic??revision??partial medial??meniscectomy, removal of loose body,??trochlear chondroplasty, and??partial synovectomy with??synovial??biopsy, right knee (DOS:12/10/20). In the interval time period, he states there has been an effusion in his knee for approximately 3 weeks. He reports no instability events but his knee feels 'unstable' lately because of the swelling. He has tried rest, ibuprofen, Tylenol, ice and for his symptoms. No clicking or catching is appreciated. Sleep quality has been normal. He would like to discuss pain relief options today. Today thepatient rates his pain at 4/10. The note from Dr. Ramirez on 08/13/21 was reviewed in conjunction with this visit. Physical Exam: General: Alert, oriented, no distress. Right Knee: Extensor mechanism intact. Moderate effusion. No erythema or ecchymosis noted. Calf is soft to palpation. Non tender medial joint line. Non tender lateral joint line. Distal neurovascular exam is grossly within normal limits. 2A- 2B Hannah's. Could not elicit a pivot shift. Little bit of p rominence on his anterolateral fat pad over where his previous incision was. No pain with patellar grind. Negative Natan's test. Imaging: Radiographs of the right knee- 3 views (08/13/2021): No fracture or dislocation identified. Mild medial compartment joint space narrowing similar to previous. Joint spaces elsewhere preserved. Mild marginal osteophytes at the patella. Small joint effusion. Radiology read and my interpretation was discussed with the patient. MR of the right knee (08/18/2021): IMPRESSION: 1. Tearing of the medial meniscus with a horizontal cleavage tear of the body and a displaced flap adjacent to the root attachment. 2. Grade II cartilage loss on both sides of the medial compartment. Mild reactive subchondral edema medial tibial plateau. 3. Slight cartilage irregularity and edema both sides of the lateral compartment with more a focal cartilage tear along the posterior weightbearing portion which is approximately 9 mm x 5 mm. 4. Cartilaginous irregularity and fissuring within the central aspect of the femoral trochlear sulcus, but there is a near full-thickness cartilage loss. 5. Grade 1 sprain of MCL without tearing. 6. Medial gastrocnemius tendinopathy without tearing. 7. Popliteus tendinopathy without tearing. 8. Quadriceps and patellar tendinopathy without tearing. 9. Moderate effusion. 10. Popliteal cyst. Results per radiology. I reviewed the imaging studies above; the results were discussed with the patient. Assessment: 1. Pain??and effusion,??recurrent, right knee 2.??Complex medial meniscus tear, recurrent, right knee 3. History of arthroscopic??revision??partial medial??meniscectomy, removal of loose body,??trochlear chondroplasty, and??partial synovectomy with??synovial??biopsy, right knee (DOS:12/10/20) 4. Early/mild degenerative joint disease, right knee 5. ACL deficient, right knee Plan: We discussed the clinical findings, interval history, and new imaging findings. We discussed the diagnosis and questions were answered. We discussed management options. We discussed the indications fora drainage and corticosteroid injection. We gave him tubi-production sanitizer today. Based on our discussion the patient would like to proceed with drainage and corticosteroid injection. If he has continued issues then we may have to revisit the topic of ACL reconstruction and other treatments for his mild degenerative joint disease. Patient will follow-up as needed. He may use OTC medicines as needed. Procedure: The superolateral aspect of the right knee was prepped in the usual aseptic technique. Then, utilizing a 18-gauge needle and used Betadine for cleansing, 1 mL of triamcinolone (40 mg) with 4 mL of 1% lidocaine was injected. There were no immediate complications. A sterile dressing was applied. 60 cc of serosanguineous fluid without any debris. This did not appear cloudy and was not sent for fluid analysis. cc: Anupam Mclain DO [address] [place] [address] Scribe Disclosure: ISaundra, am serving as a scribe to document [...] Chronic pain of right knee - Primary Effusion of right knee Effusion of lower leg joint S/P right knee arthroscopy Other postprocedural status Complex tear of medial meniscus of right knee as current injury, initial encounter Primary osteoarthritis of right knee Primary localized osteoarthrosis, lower leg documented in this encounter Care Teams Chemistry Tutor Relationship Specialty Start Date End Date Aydin Morales MD PCP - General 08/29/13 100[address] [facility] 100 [place] [address] documented as of this encounter
--- OUTSIDE RECORDS SUMMARY | 2021-11-24 22:16 | XMS_ITS | Encounter Summary ---
:1975 Author Organization [facility] Address [address] [place] [address] Care Team Providers Name Role Phone Aydin Morales MD Primary Care Provider Reason for Visit Procedure/Equipment (Routine) - Closed Specialty Diagnoses / Procedures Referred By Contact Refer red To Contact Diagnoses Effusion of right knee Sourav Ramirez MD Procedures MR Knee Rt WO IV Cont [address] [facility] [place] [address] Referral ID Status Reason Start Date Expiration Date Visits Requ ested Visits Authorized [id number] Closed 08/13/2021 11/12/2022 1 1 Encounter Details Date Type Department Care Team Description 08/18/2021 Ancillary Sourav Ramos Effusion of right Procedure Radiology MRI MD Amberly knee [address] [place] [address] [facility] [place] [phone] [address] Social History Tobacco Use Types Packs/Day Years [...] Comme nts MR KNEE RT WO IV STAT 08/18/2021 12:10 PM Effusion of right Results for this CONT CDT knee procedure are i n the results [...] MR KNEE RT WO IV CONT LOCATION: [facility] DATE/TIME: 08/18/2021 12:10 PM INDICATION: Knee trauma, [...] is intact. -Pes anserine tendons are normal. Quality Assurance Supervisor omedial corner complex ligaments are intact. POSTEROLATERAL [...] MR KNEE RT WO IV CONT LOCATION: [facility] DATE/TIME: 08/18/2021 12:10 PM INDICATION: Knee trauma, [...] is intact. -Pes anserine tendons are normal. Quality Assurance Supervisor omedial corner complex ligaments are intact. POSTEROLATERAL [...] Popliteal cyst. Sourav Ramirez MD RAD MRI documented in this encounter Visit Diagnoses Diagnosis Effusion of right knee Effusion of lower leg joint documented in this encounter Care Teams Event Marketing Coordinator Relationship Specialty Start Date End Date Aydin Morales MD PCP - General 08/29/13 1001 [facility] 100 [place] [address] documented as of this encounter
--- OUTSIDE RECORDS SUMMARY | 2021-11-24 22:16 | XMS_ITS | Encounter Summary ---
:1975 Author Organization [facility] Address [address] [place] [address] Care Team Providers Name Role Phone Aydin Morales MD Primary Care Provider Reason for Visit Procedure/Equipment (Routine) - Incomplete Specialty Diagnoses / Procedures Referred By Contact Refer red To Contact Diagnoses Chronic pain of right knee Isaac Peña MD Procedures XR Knee Lt 1-2 Views Comparison [address] [place] [address] 1 Referral ID Status Reason Start Date Expiration Date Visits V isits Requested Authorized [id number] Incomplete 09/19/2020 12/19/2021 1 1 Encounter Details Date Type Department Care Team Description 09/19/2020 Ancillary [facility] Isaac Peña MD Chronic pain of Procedure [address] [place] [address] [place] [address] [phone] Social History Tobacco Use Types Packs/Day Years [...] Diagnosis XR KNEE LT 1-2 VIEWS Routine 09/19/2020 11:37 AM Chronic pain of Results for this COMPARISON CDT right knee procedure are i n the results section. XR KNEE RT 3 VIEWS Routine 09/19/2020 11:37 AM Chronic pain of Results for this CDT right knee procedure are i n the results section. documented in this encounter Results XR Knee Lt 1-2 Views Comparison (09/19/2020 [...] knee documented in this encounter Care Teams Montessori Lead Teacher Relationship Specialty Start Date End Date Aydin Morales MD PCP - General 08/29/13 1001 [facility] 100 [place] [address] documented as of this encounter
--- OUTSIDE RECORDS SUMMARY | 2021-11-24 22:17 | XMS_ITS | Encounter Summary ---
:1975 Author Organization [facility] Address [address] [place] [address] Care Team Providers Name Role Phone Aydin Morales MD Primary Care Provider Encounter Details Date Type Department Care Team Description 09/01/2013 Imaging [facility] Pain in joint, shoulder [address] [place], [place] [address] Social History Tobacco Use Types Packs/Day Years Used Date Smoking Tobacco: Never Assessed Sex Assigned at Date Recorded Not on file documented as of this encounter Plan of Treatment Not on filedocumented as of this encounter Procedures Procedure Name Priority Date/Time Associated Diagnosis Comme nts FL INJECTION Routine 09/01/2013 10:40 AM Pain in joint, Result s for this SHOULDER RT CDT shoulder region procedure ar e in the results section. documented in this encounter Results FL Injection Shoulder Rt (09/01/2013 10:40 AM CDT) Anatomical Region Laterality Modality Upper Extremity, Shoulder Other Specimen (Source) Anatomical Location Collection Method / Collectio n Time Received Time / Laterality Volume Narrative 09/01/2013 11:39 AM CDT FINDINGS: ??The risks, benefits, indications and alternatives were discussed with the patient who verbally relates understanding and agrees to proceed. ??Written and verbal informed consent was obtained . ??A time out was performed to verify p atient name, date of and site of procedure. ? The right glenohumeral joint was localiz ed and initialed utilizing fluoroscopy. ??The skin was prepped and draped in the normal sterile fashion. ??The superficial soft tissues were anesthetized with 3 t o 4 mL of 1% lidocaine. ??The joint was accessed utilizing a 22-gauge needle. ??Approxima tely 1 mL of Omnipaque-180 was utilized to verify intra-articular needle location. ??Approximately 2 mL of Kenalog 40 mg/mL and 4 mL of 1% ropivacaine was adminis tered into the joint space. ??The patien t tolerated the procedure well without apparent complic ations and was discharged in stable condition. Pain threshold prior to injection was 10/10 without change after injection. ? Procedure Note Mateus Rebolledo MD - 08/25/2015Formatti ng of this note might be different from the original. FINDINGS: The risks, benefits, indicatio ns and alternatives were discussed with the patient who verbally relates understanding and agrees to proceed. Written and verbal informed consent was obtained. A time out was performed to verify patient name, date of and site of procedure. The right glenohumeral joint was localiz ed and initialed utilizing fluoroscopy. The skin was prepped and draped in the normal sterile fashion. The superficial soft tissues were anesthetized with 3 to 4 mL of 1% lidocaine. The joint was accessed utilizing a 22-gauge needle. Approximate ly 1 mL of Omnipaque-180 was utilized to verify intra-articular needle location. Approximately 2 mL of Kenalog 40 mg/mL and 4 mL of 1% ropivacaine was administered into the joint space. The patient tolerated the procedure well without apparent complic ations and was discharged in stable condition. Pain threshold prior to injection was 10/10 without change after injection. Erich Kirkland MD [facility] documented in this encounter Visit Diagnoses Diagnosis Pain in joint, shoulder region documented in this encounter Care Teams Housekeeper Caregiver Relationship Specialty Start Date End Date Aydin Morales MD PCP - General 08/29/13 1001 [facility] 100 [place] [address] documented as of this encounter
--- OUTSIDE RECORDS SUMMARY | 2021-11-24 22:17 | XMS_ITS | Encounter Summary ---
:1975 Author Organization [facility] Address [address], [place] [address] Care Team Providers Name Role Phone Aydin Morales MD Primary Care Provider Reason for Visit Reason Comments Refill Encounter Details Date Type Department Care Team Description 10/23/2013 Refill [facility] Erich Garrison MD Refill [address] [facility] [address] [place] [address] [place] [address] 1 [place] [address] [phone] (Wo rk) Social History Tobacco Use Types Packs/Day Years Used Date Smoking Tobacco: Never Assessed Sex Assigned at Date Recorded Not on file documented as of this encounter Nursing Notes Laurie Mercer - 10/24/2013 2:[address] Kirkland approves script for [place]. Patient's preferred pharmacy, [facility] in [place], [place]. Script called into pharmacy. Patient contacted and notified. Issue resolved. documented in this encounter Plan of Treatment Not on filedocumented as of this encounter Visit Diagnoses Not on filedocumented in this encounter Care Teams Process Mold Technician Relationship Specialty Start Date End Date Aydin Morales MD PCP - General 08/29/13 1001 [facility] 100 [place] [address] documented as of this encounter
--- OUTSIDE RECORDS SUMMARY | 2021-11-24 22:17 | XMS_ITS | Encounter Summary ---
:1975 Author Organization [facility] Address [address] [place] [address] Care Team Providers Name Role Phone Aydin Morales MD Primary Care Provider Reason for Visit Reason Comments SHOULDER PAIN Encounter Details Date Type Department Care Team Description 08/30/2013 Surgical Consult [facility] Erich Kirkland Pai n in joint, CENTER shoulder region [address] [place] [address] [place] [address] (Primary Dx) [place] [address] [phone] Social History Tobacco Use Types Packs/Day Years Used Date Smoking Tobacco: Never Assessed Sex Assigned at Date Recorded Not on file documented as of this encounter Last Filed Vital Signs Vital Sign Reading Time Taken Comments Blood Pressure 133/92 08/30/2013 9:02 AM CDT Pulse - - Temperature - - Respiratory Rate - - Oxygen Saturation - - Inhaled Oxygen Concentration - - Weight 103.4 kg (228 lb) 08/30/2013 9:02 AM CDT Height 180.3 cm (5' 11) 08/30/2013 9:02 AM CDT Body Mass Index 31.8 08/30/2013 9:02 AM CDT documented in this encounter Patient Instructions Patient InstructionsYoanna Monahan - 08/30/2013 9:[address] Erich Kirkland MD Orthopaedic Surgeon Customer Service Associate: Patricia Matson Please contact Patricia for all administrative questions at [phone] Please contact Nurse Line for all medical related questions at [phone] Medication Requests: Prescriptions are not filled on Weekends or on Weekdays after 3:00PM For all medication refills: Request a refill using MyChart or contact your Pharmacy Schedule cortisone injection and follow up in 4-5 weeks documented in this encounter Progress Notes Erich Kirkland MD - 09/07/2013 5:14 PM CDT Progress Notes signed by Erich Kirkland MD at 09/12/131716 Author: Erich Kirkland MD Service: (none) Author Type: Physician Filed: 09/12/131716 Note Time: 09/12/13739 Status: Signed Flume Maker: Erich Kirkland MD (Physician) NAME: ANASTASIYA GRANADOS MR#: [id number] CSN: [id number] AUTHENTICATING CLINICIAN: Erich Kirkland MD CONFIRM #: [id number] LOC: 711 CLINIC PROGRESS NOTE DATE OF VISIT: 08/30/2013 : 1975 Anastasiya is a 37-year-old male coming in complaining of right shoulder pain. He states he is actually left-hand dominant, but he throws a ball with his right arm. He was injured throwing a softball recently. He did not really think he had too much trouble actually during the time of throwing, but he hada lot of pain the next morning. Since that time he has been unable to throw a softball. His injury was about a month ago. He is having some night pain. His pain and dysfunction in his right shoulder led to magnetic resonance imaging, which was accomplished at [facility] through [facility] in [place]. His scan was from 08/23/2013. The MR shows cuff was intact. His MR was not done with contrast.It did seem to show a superoposterior labral tear, which did not appear to be displaced. The report of the scan felt that further delineation of his labrum was needed and that an arthrogram should be performed. PHYSICAL EXAM: On exam, patient has significant pain in his right shoulder with attempts at motion. Even simple Codman's exercise is painful for him. He is able to forward flex to about 60 degrees. He has abduction to 30. Resistance testing of his cuff appears intact, but is painful. He has the most significant painwith [place]'s type testing. Any type of labral provocation is uncomfortable. Distal sensorimotor function is intact. Overall, given the patient's history along with the findings on his MR, I think that he does have anacute labral tear. I think that his level of pain at this particular point is not helpful with respect of making any type of progress conservatively. This was discussed with the patient. PLAN: Overall, I think the best way to proceed is to have his glenohumeral joint injected under fluoro with steroid and local anesthetic. Hopefully, this would break him out of his pain cycle and then he could get started on a stabilization and strengthening program for his shoulder. With that, he may do just fine conservatively despite a labral tear. The patient understands this well. We will proceed withinjection and see how he does clinically. AWM:MARIYA C: R:09/07/13 17:36 CONFIRM#:[id number] documented in this encounter Plan of Treatment Not on filedocumented as of this encounter Visit Diagnoses Diagnosis Pain in joint, shoulder region - Primary documented in this encounter Care Teams Scrap Collector Relationship Specialty Start Date End Date Aydin Morales MD PCP - General 08/29/13 1001 [facility] 100 [place] [address] documented as of this encounter
--- OUTSIDE RECORDS SUMMARY | 2021-11-24 22:17 | XMS_ITS | Encounter Summary ---
:1975 Author Organization [facility] Address [address] [place] [address] Care Team Providers Name Role Phone Aydin Morales MD Primary Care Provider Reason for Visit Reason Comments Refill Encounter Details Date Type Department Care Team Description 09/29/2013 Refill [facility] Erich Garrison MD Refill [address] [facility] [address] [place] [address] [address] [place] [address] [address] [place] [address] [phone] (Wo rk) Social History Tobacco Use Types Packs/Day Years Used Date Smoking Tobacco: Never Assessed Sex Assigned at Date Recorded Not on file documented as of this encounter Nursing Notes Bri Mari - 09/29/2013 5:03 PM CDT Requested Prescriptions Signed Prescriptions Disp Refills ??? HYDROcodone-acetaminophen (NORCO) 5-325 mg per tablet 20 tablet 0 Sig: Take 1-2 tablets by mouth every 6 hours as needed for Pain. Authorizing Provider: KATINA DAVENPORT Pharmacy called. Bri Mari - 09/29/2013 3:31 PM CDT Pt. OV on 08/[address] Kirkland for acute labral tear, right shoulder. Refill request sent by pharmacy fax for the following medication: [place], #40 last dispensed on 08/30. documented in this encounter Plan of Treatment Not on filedocumented as of this encounter Visit Diagnoses Diagnosis Pain in joint, shoulder region documented in this encounter Care Teams Senior Hardware Engineer Relationship Specialty Start Date End Date Aydin Morales MD PCP - General 08/29/13 1001 [facility] 100 [place] [address] documented as of this encounter
[2021-11-24 22:36] LABS: HCO3 VBG 27 mmol/L (21-28); PCO2 VBG 38 mmHG (40-50); PO2 VBG 73.9 mmHG (25-47); pH VBG 7.455 (7.32-7.43)
[2021-11-24 22:44] LABS: Basophils Absolute Auto 0.06 K/uL (0.00-0.30); Eosinophils Absolute Auto 0.19 K/uL (0.00-0.50); Eosinophils Percent Auto 3.3 % (0.0-7.0); Hematocrit 46.5 % (37.0-53.0); Hemoglobin* 16.6 gm/dL (13.5-17.5); Immature Granulocytes Abs Auto 0.05 K/uL (0.00-0.30); Lymphocytes Absolute Auto 1.85 K/uL (0.90-2.90); Lymphocytes Percent Auto 32.1 % (20-44); Mean Corpuscular HGB Conc 36 gm/dL (32-36); Mean Corpuscular Hemoglobin 35 pg (26-34); Mean Corpuscular Volume 98 fL (80-100); Neutrophils Percent Auto 53.7 % (42.0-72.0); Platelet Count* 220 K/uL (140-440); Red Blood Count 4.76 m/uL (4.30-5.90); White Blood Count* 5.77 K/uL (4.50-11.00)
[2021-11-24] MEDS: ONDANSETRON 2 MG/ML inj 4 MG IVP (22:44)
[2021-11-24] MEDS: 0.9 % SODIUM CHLORIDE 1000 ml 1,000 ML IV (22:44)
[2021-11-24 22:46] LABS: Slide Review Reflex No
[2021-11-24] MEDS: LORazepam 2 MG/ML inj 0.5 MG IVP (22:46)
[2021-11-24] MEDS: KETOROLAC 30 MG/ML inj IVP (22:47)
[2021-11-24] MEDS: MORPHINE 4 MG/ML INJ IVP (22:49)
[2021-11-24 22:58] LABS: Albumin* 3.9 g/dL (3.3-5.0); Chloride* 103 mmol/L (96-114); Sodium* 138 mmol/L (135-149)
[2021-11-24 22:59] LABS: Potassium* 3.2 mmol/L (3.6-5.1)
[2021-11-24 23:01] LABS: Creatinine* 0.6 mg/dL (0.5-1.5); Est. Creatinine Clearance* 163.85; Estimated Glomerular Filt Rate 121 ml/min
[2021-11-24 23:02] LABS: Alanine Aminotransferase* 215 U/L (4-50); Alkaline Phosphatase* 126 U/L (40-150); Aspartate Amino Transferase* 165 U/L (12-35); Bilirubin Direct* 0.3 mg/dL (0.0-0.5); Bilirubin Total* 0.4 mg/dL (0.1-1.5); Blood Urea Nitrogen* 6 mg/dL (5-24); Calcium* 8.5 mg/dL (8.4-10.6); Carbon Dioxide* 24 mmol/L (20-32); Glucose* 121 mg/dL (60-115); Lipase* 41 U/L (23-300); Magnesium* 1.9 mg/dL (1.5-2.6); Total Protein* 6.5 g/dL (6.0-8.3)
[2021-11-24 23:03] LABS: Ethanol* 0.19 % (0.01-0.03)
[2021-11-24 23:06] LABS: C Reactive Protein* < 0.5 mg/dL (0.5-1.0)
[2021-11-25] MEDS: MORPHINE 4 MG/ML INJ IVP (00:20)
== END 2021-11-25 00:27 | disposition home or self-care (01) ==
PROVIDERS: Emergency Provider Family Medicine
DX: K29.20 Alcoholic gastritis without bleeding (principal)
CPT/HCPCS: 36415; 80048; 80076; 82077; 82803; 83690; 83735; 85025; 86140; 96361; 96374; 96375; 96376; 99284; J1885; J2060; J2270; J2405; J7030

== ENCOUNTER 2021-11-25 02:55 | Emergency (ER) | payer OTHER, SELFPAY ==
[2021-11-25 03:08] VITALS: BP 129/97; PULSE 75; RESP 16; TEMP 35.7; O2SAT 94
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
--- OUTSIDE RECORDS SUMMARY | 2021-11-25 03:46 | XMS_ITS | Encounter Summary ---
:1975 Author Organization [facility] Address [address] [place] [address]. [place] [address] Care Team Providers Name Role Phone Aydin Morales MD Primary Care Provider Reason for Visit Reason Comments Eye Problem Encounter Details Date Type Department Care Team Description 12/28/2010 Emergency [facility] [place] [facility] Van Emerson Haynes , UV keratitis [facility] Emergency Dept [address] [facility] [address] [facility] [place] [address] [place], [place] [id number] (Wo rk) Social History Tobacco Use Types Packs/Day Years Used Date Current Every Day Smoker 0.5 Alcohol Use Standard Drinks/Week Comments Yes 8.3 (1 standard drink = 0.6 oz pure alco hol) Sex Assigned at Date Recorded Not on file documented as of this encounter Last Filed Vital Signs Vital Sign Reading Time Taken Comments Blood Pressure 150/93 12/28/2010 11:11 PM CDT Pulse 72 12/28/2010 11:43 PM CDT Temperature - - Respiratory Rate 22 12/28/2010 11:43 PM CDT Oxygen Saturation - - Inhaled Oxygen Concentration - - Weight 102.5 kg (226 lb) 12/28/2010 11:11 PM CDT Height - - Body Mass Index - - documented in this encounter Discharge Instructions Discharge InstructionsVan Emerson Haynes MD - 12/28/2010 11:35 PM CDT Go home and rest. See Dr Morales in the morning as scheduled. 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 It was nice visiting with both of you this evening. Thank you for choosing [facility]. We appreciate the opportunity to meet your urgent medical needs. Please let us know if we could have done anything to make your stay more satisfying. After discharge, please closely monitor for any new or worsening symptoms. Return to the Emergency Department if you develop any acute worsening signs or symptoms. If you had lab work, cultures or imaging studies done during your stay, the final results may still be pending. We will call you if your plan of care needs to change. However, if you are not improving as expected, please follow up with your primary care provider or clinic. Start any prescription medications that were prescribed to you and take them as directed. Please see additional handouts that may be pertinent to your condition. AttachmentsThe following attachments cannot be sent through Care Everywhere. FLASH BURN, EYE (GAMBIAN)documented in this encounter Medications at Time of Discharge Medication Sig Dispensed Refills Start Date End Date erythromycin (ROMYCIN) Place into both eyes 0 12/30/2010 ophthalmic every 6 hours for 2 ointmentIndications: UV days. For HOME keratitis alprazolam (XANAX) 0.5 MG Take 0.5 mg by mouth 0 10/19/2020 tablet 3 times daily as needed. citalopram (CELEXA) 40 MG Take 40 mg by mouth 0 10/19/2020 tablet daily. hydrocodone-acetaminophen Take 1-2 tablets by 15 tablet 0 1 10/19/2020 (NORCO) 5-325 MG per mouth every 4 hours tabletIndications: UV as needed for pain. keratitis documented as of this encounter ED Notes Emerson Delgado MD - 12/28/2010 11:36 PM CDT History Chief Complaint Patient presents with ??? Eye Problem HPI Comments: Juan Ramon is a 35 year old male who presents to the ED with bilateral eye pain. 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 He was not wearing a welders helmet. He has helped before but never for this length of time. He was trying to shield his eyes withhis hand. As the pain became so severe that he woke and could not sleep and is unable to open his eyes. He has a physical appointment tomorrow his primary physician The history is provided by the patient and the spouse. Past Medical History Diagnosis Date ??? Anxiety History reviewed. No pertinent past surgical history. History Social History ??? Marital Status: Spouse Name: N/A Number of Children: N/A ??? Years of Education: N/A Occupational History ??? Not on file. Social History Main Topics ??? Smoking status: Current Everyday Smoker -- 0.5 packs/day ??? Smokeless tobacco: Not on file ??? Alcohol Use: 5.0 oz/week 10 Cans of beer per week ??? Drug Use: No ??? Sexually Active: Yes -- Female partner(s) Other Topics Concern ??? Not on file Social History Narrative ??? No narrative on file Allergies Allergen Reactions ??? Pcn (Penicillins) Unknown reaction as child Med List Reviewed Review of Systems Eyes: Positive for photophobia, pain, discharge (Copious tears) and redness. Physical Exam BP: 150/93 mmHg Pulse: 81 Resp: 18 Weight: 102.513 kg (226 lb) Physical Exam Constitutional: He appears well-developed and well-nourished. He appears distressed (moderate). HENT: Head: Normocephalic. Eyes: EOM are normal. Pupils are equal, round, and reactive to light. Right conjunctiva is injected.Left conjunctiva is injected. Slit lamp exam: The right eye shows no corneal abrasion, no corneal ulcer, no foreign body, no hyphema and no fluorescein uptake. The left eye shows no corneal abrasion, no corneal ulcer, no foreign body, no hyphema and no fluorescein uptake. ED Course Tetracaine drops in both eyes helped immensely. He was then able to open his eyes. Fluorescein exam was unremarkable. Procedures Assessments & Plan (with Medical Decision Making) 370.24P UV keratitis Comment: bilateral after helping with some welding Plan: erythromycin (ROMYCIN) ophthalmic ointment, hydrocodone-acetaminophen (NORCO) 5-325 MG per tablet Recheck in 24-48 hours if not entirely improved. He actually has an appointment in the morning withhis primary physician for a routine physical. I have reviewed the nursing notes. I have reviewed the findings, diagnosis, plan and need for follow up with the patient. New Prescriptions ERYTHROMYCIN (ROMYCIN) OPHTHALMIC OINTMENT Place into both eyes every 6 hours for 2 days. For HOME HYDROCODONE-ACETAMINOPHEN (NORCO) 5-325 MG PER TABLET Take 1-2 tablets by mouth every 4 hours as needed for pain. Final diagnoses: UV keratitis Emerson Delgado MD 12/28/10 2341 Pee Patel RN - 12/28/2010 11:16 PM CDT Fine when went to bed, woke up half an hour after and could not see, eye pain. Was at friends who was welding today documented in this encounter Plan of Treatment Not on filedocumented as of this encounter Visit Diagnoses Diagnosis UV keratitis Photokeratitis documented in this encounter Administered Medications Inactive Administered Medications - up to 3 most recent administrations Medication Order MAR Action Action Date Dose Rate Site tetracaine (PONTOCAINE) 0.5 % Given 12/28/2010 11:[address] harris ophthalmic solution 2 drop 2 drop, Both Eyes, ONCE, On 12/28/10 at 2321, For 1 dose tetracaine (PONTOCAINE) 0.5 % ophthalmic solution Starting on 12/28/10 at 2324, For 1 dose, Isha Thurston: Cabinet Override documented in this encounter Active and Recently Administered Medications Times are shown in CDT. Scheduled Medication Order 12/26/2010 12/27/2010 12/28/2010 tetracaine (PONTOCAINE) 0.5 % ophthalmic solution 2 drop (COMPLE LEANA) [id number] (Given - Provider: Isha Thurston, RN - Comment: given by ) 2 drop, Both Eyes, ONCE, 12/28/10 at 2321, For 1 dose documented in this encounter Care Teams Pierogi Maker Relationship Specialty Start Date End Date Aydni Morales MD PCP - General 11/01/09 [address] [facility] [address] [place] [address] documented as of this encounter
--- OUTSIDE RECORDS SUMMARY | 2021-11-25 03:46 | XMS_ITS | Encounter Summary ---
:1975 Author Organization [facility] Address [address] [place] [address] Care Team Providers Name Role Phone Unavailable Primary Care Provider Unavailable Encounter Details Date Type Department Care Team Description 12/18/2013 Hospital Encounter HX [facility] FAMILYPRA Lidia Elizondo, WALTER, C.N.P. [address] [place] [address] (Wo rk) Social History Tobacco [...] WALTER, C.N.P. - 12/18/2013 9:46 AM CDT [id number] CHIEF COMPLAINT/REASON FOR VISIT 1. Establish care. 2. Preop for right rotator cuff repair. HISTORY OF PRESENT ILLNESS This is Anastasiya's first visit to [facility] in [place]. He recently moved from [place], [place]. He states he injured his right shoulder playing softball this summer. He is being seen at the request of Dr. Barry for medical evaluation prior to surgery. He is scheduled for right shou lder rotator cuff repair with Dr. Barry at [facility] on 12/19/2013. Has no history of bleeding [...] paperwork will be completed and faxed to [facility]. . Allof his questions were answered. He is class ASA class 1. Gail Elizondo CNP/gala Electronically Signed By: GAIL ELIZONDO CNP On: 12/18/2013 11:27 AM Modified by and Electronically Signed by: GAIL ELIZONDO CNP On: 12/18/2013 11:27 AM Source: [facility] MHSDOLBEYNONRADSYS Document Id: [id number] documented in this encounter Nursing Notes Gail [...] can help keep it that way. ?? [phone] Jc [facility], [address] [place] [address], [place] [address]. All rights reserved. This information is not intended as a substitute for professional medical care. Always follow your healthcare professional's instructions. This document has images extracted. Please consider using [employer] for all your patient education needs. Source: [facility] POWERCHART Document Id: [id number] documented in this encounter Miscellaneous Notes Miscellaneous - Gail Elizondo APRN, C.N.P. - 12/18/2013 10:10 AM CDT Ambulatory Patient Summary [address] [id number] Visit Information Name: ANASTASIYA GRANADOS [facility] Number: [id number] Current Date: 12/18/2013 10:10:05 Physicians [...] can help keep it that way. ?? [phone] Jc [facility], [address] [place] [address], [place] [id number]. All rights reserved. This information is not intended as a substitute for professional medical care. Always follow your healthcare professional's instructions. Your Goals/Additional instructions: This document has images extracted. Please consider using [employer] for all your patient education needs. Source: [facility] POWERCHART Document Id: [id number] Miscellaneous - Gail Elizondo APRN, C.N.P. - 12/18/2013 10:10 AM CDT Ambulatory Discharge Medication List [address] [id number] Visit Information Name: GRANADOSDEZ OBRIENFIORDALIZA MONROE [facility] Number: [id number] Visit Date: 12/18/2013 10:10:04 Attending [...] of emergency. Electronically Signed By: GAIL ELIZONDO HR ASSISTANT Signed On:18-DEC-2013 10:09:37 Additional Information: Source: [facility] POWERCHART Document Id: [id number] Miscellaneous - Evelyn Saxena C.MBelkisABelkis - 12/18/2013 [...] CDT Psychosocial Domestic Abuse Concerns : None Oriental Orthodox Preference : No qualifying data available. EVELYN SAXENA - 12/18/2013 10:04 CDT Advance Directive Advanced Directives : Yes Advance Directive Type : Health care power of erisa attorney EVELYN SAXENA - 12/18/2013 10:04 CDT Educ Needs Learning Style Preference Adult Grid Patient : Printed materials Family : Printed materials EVELYN SAXENA - 12/18/2013 10:04 CDT [facility] Document Id: [id number] CDT!25 Miscellaneous - Evelyn Saxena C.M.A. - 12/18/2013 9:53 AM CDT Adult Zig Zag Stitcher Intake/History Adult Zig Zag Stitcher Intake/History Entered On: 12/18/2013 10:00 CDT Performed On: 12/18/2013 9:53 CDT by EVELYN SAXENA Intake Chief Complaint : pre op physical; right shoulder surgery; 12/19/2013; [facility];Dr. Barry. Temperature Core : 37.2 DegC(Converted to: [...] Information Given By : Patient Languages : Angolan Is Patient Female and 13-50 no hysterectomy : No EVELYN SAXENA - 12/18/2013 9:53 CDT Subjective Pain Symptoms : Yes EVELYN SAXENA - 12/18/2013 9:53 CDT Pain Pain Assessment Grid Pain 1 Location : Shoulder Laterality : Right Intensity : 6 EVEYLN SAXENA - 12/18/2013 9:53 CDT Dependent Habits Tobacco Use/Currently Using : No Exposure to Tobacco Smoke : Patient smokes Smoking Status : Light tobacco smoker EVELYN SAXENA - 12/18/2013 9:53 CDT Tobacco Use Grid Cigarette Use Packs/Day : 2 (Comment: cigarettes [EVELYN SAXENA - 12/18/2013 9:53 CDT] ) EVELYN SAXENA - 12/18/2013 9:53 CDT Source: [place] Document Id: [id number] CDT!36 Miscellaneous - Evelyn Saxena C.M.A. - [...] EVELYN SAXENA - 12/18/2013 9:53 CDT [facility]: [facility] Document Id: [id number] CDT!10 documented in this encounter Plan of [...] X109L Erythrocytes 4.60 4.32 - POWERCHART 5.72 [id number] Hemoglobin 15.6 13.5 - POWERCHART 17.5 GDL [...] C.N.P. LAB BLOOD ADD-ON Performing Organization Address City/[facility] Code Phon e Number POWERCHART (ABNORMAL) BMP [...]
--- OUTSIDE RECORDS SUMMARY | 2021-11-25 03:46 | XMS_ITS | Encounter Summary ---
:1975 [facility] Address [address] [place] [address] Care Team Providers Name Role Phone Aydin [...] Acet Inj Nos: (per 10 mg) [address] [facility] [place], [place] [address] Referral ID Status Reason Start Date Expiration Date Visits V isits Requested Authorized [id number] New Request 08/26/2021 11/25/2022 1 1 Reason for Visit Reason Comments KNEE PAIN Right knee Consult/Transfer Care (Routine) - New Request Specialty Diagnoses / Procedures Referred By Contact Refer red To Contact Diagnoses Acute pain of right knee Anupam Mclain DO [address] [place], [place] [address] Referral ID Status Reason Start Date Expiration Date Visits V isits Requested Authorized [id number] New Request 08/18/2021 11/17/2022 1 1 Encounter Details Date Type Department Care Team Description 08/25/2021 Office Visit Isaac Bedolla B, MD Chronic pain of right knee (Primary Dx); [facility] [address] [facility] [address] Effusion of right knee; [address] [place], [place] S/P right knee arthroscopy; [place] [address] Complex tear of medial meniscus of right knee as current injury, initial encounter; [address] Primary osteoarthritis of ri ght knee Social [...] 9:14 AM CDT Thank you for Choosing [facility] for your health care visit today. Dr. Isaac Peña MD Orthopaedic Surgeon Medication Requests: Prescriptions are not filled on weekends or on weekdays after 3:00 PM. For all medication refills: Request a refill using [employer] or contact your pharmacy. What is Know Your Cost? Know Your Cost is a service for patients and patient/members to call and receive personalized cost information and estimates across our care group. The phone number is (COST) Wednesday - Wednesday 8 AM to 5 PM Advanced Imaging Scheduling: To schedule an MRI, Ultrasound, or Image guided injection at [facility] please call [phone]. To schedule an MRI or CT at a [facility] location please call [phone]. [employer] Workers[employer] [address] [place] [address] (Phone) Email: [email or web address] Release of Information: Radiology/Imaging [address] [place] [address] (Phone) Health Information Management [address] [place] [address] (Phone) Assurely documented in this encounter Progress Notes Isaac Peña MD - 08/25/2021 9:10 AM CDT Juan Ramon Granados [id number] 1975 [facility] Orthopaedic Surgery Follow-Up 08/25/2021 Interval History: Juan [...] drainage and corticosteroid injection. 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 Based on our discussion the patient [...] for fluid analysis. cc: Anupam Mclain DO [address] [place] [address] Scribe Disclosure: ISaundra, am serving as a [...] leg documented in this encounter Care Teams Compliance Lead Relationship Specialty Start Date End Date Aydin Morales MD PCP - General 08/29/13 [address] [facility] [address] [place] [address] documented as of this encounter
--- OUTSIDE RECORDS SUMMARY | 2021-11-25 03:46 | XMS_ITS | Encounter Summary ---
:1975 Author Organization [facility] Address [address] [place] [address] Care Team Providers Name Role Phone Aydin [...] on filedocumented in this encounter Care Teams Burner Tender Relationship Specialty Start Date End Date Aydin Morales MD PCP - General 11/01/09 [address] [facility] [address] [place] [address] documented as of this encounter
--- OUTSIDE RECORDS SUMMARY | 2021-11-25 03:46 | XMS_ITS | Encounter Summary ---
:1975 Author Organization [place] Address [address] [facility] [place] [address] Care Team Providers Name Role Phone Aydin Morales MD Primary Care Provider Reason for Visit Reason Comments Abdominal Pain Pt was on 3A, had acute ABD pain, sent to ER by Hospitalist. Auth/Cert Specialty Diagnoses / Procedures Referred By Contact Refer red To Contact Med Surg Diagnoses Acute pancreatitis Acute pancreatitis Uu U7b [address] [place] [address] Phone: Referral ID Status Reason Start Date Expiration Date Visits Requ ested Visits Authorized [id number] 1 1 Encounter Details Date Type Department Care Team Description 10/20/2020 - [facility] Emily Borja MD [address] [address] Alcohol-induced 10/23/2020 Encounter [facility] Unit 7B Jackson Coughlin DO [address] [place] [address] acute pancreatitis, Jackson Martinez MD [address] [place] [address] [facility] Chetan Villasenor MD [address] [address] complication status MPLABBY Solano (Primary Dx) [id number] Social History Tobacco Use Types Packs/Day Years [...] Villasenor MD - 10/23/2020 11:42 AM CDT [facility] Hospitalist Discharge Summary Date of Admission: 10/20/2020 Date of Discharge: 10/23/2020 12:42 PM Discharging Provider: Chetan Villasenor MD Discharge Team: Hospitalist Service, [facility] Discharge Diagnoses SIRS without active infection due [...] bowel regimen. ?? Consultations This Hospital Stay [facility] IP CONSULT VASCULAR ACCESS CARE ADULT IP CONSULT Code Status Prior Time Spent on this Encounter I, Chetan Villasenor MD, personally saw the patient today and spent less than or equal to 30 minutes discharging this patient. Chetan Villasenor MD [facility] [address] [place] [phone] Physical Exam BP (!) 148/89 (BP Location: [...] Narrative EXAM: XR ABDOMEN 1 VIEW LOCATION: [facility] DATE/TIME: 10/20/2020 4:00 AM INDICATION: abdominal pain [...] PA-C Hospitalist Service Contact information available via [facility] Paging/Directory Chetan Villasenor MD - 10/22/2020 4:19 PM CDT [facility] Medicine Progress Note - Hospitalist Service, Federico [...] 3500. - Cont Dilaudid for pain control (DEHORNER) - Added OxyIR PRN - ADAT - [...] and Patient. Chetan Villasenor MD Hospitalist Service, [address] Securely message with the Public Solution Console (learn more here) Text page via [facility] Paging/Directory Please see sign in/sign out for [...] SPIRITUAL HEALTH SERVICES SPIRITUAL ASSESSMENT Progress Note [facility] 7B REFERRAL SOURCE: Staff referral - bedside nurse Yumiko Patient declined visit at this time; said that tomorrow would be better. PLAN: I will follow up tomorrow. Spiritual Health Services remains available for patient, family, and staff support. Please page the home extension agent zipper trimmer either via [employer] (Spiritual Health/[facility]) or by placing a STAT or AIMEE Epic referral for Spiritual Health (which will roll to the home extension agent pager). Malcolm Villalba Batch Freezer Operator Pager: [phone] Jackson Lockwood MD - 10/21/2020 3:44 PM CDT [facility] Medicine Progress Note - Hospitalist ServiceFederico Date [...] IVF until PO improving. Then wean off DEHORNER and stop IVF ~24 hr from now - send a peripheral BC in case infection is later presumed?? Alcohol withdrawal Patient was admitted initially to the detox unit. Patient did present with desire for treatment. - CICT protocol - Valium as needed - high dose gabapentin ?? Alcohol use disorder Patient has been using significant amounts of alcohol and drinking daily. This is related to significant life stressors as it is the 1 year anniversary of his daughter's . He has been sober in theazst but relapsed several months ago unfortunately. -Patient [...] and Patient. Jackson Lockwood MD Hospitalist Service, [address] Securely message with the Public Solution Console (learn more here) Text page via [facility] Paging/Directory Please see sign in/sign out for [...] family. 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 In a lot of pain, abdominal, with labs showing worsening lipase. Patient states he is not drinking. Increased dilauded during daytime has been ineffective. Placed orders for DEHORNER pump 0.3 mg q 15 m. 1.2 [...] notes. Jackson Lloyd D.O. Internal Medicine, Hospitalist [facility] Pager: [phone] Chetan Owen MD - 10/20/2020 11:30 AM [...] as needed Patient may benefit from a DEHORNER Trial of ketorolac IV Protonix Antiemetics IV fluids Alcohol drawl protocol Admission orders have been placed by Dr. Borja. documented in this encounter H&P Notes Evangelist Borja MD - 10/20/2020 5:10 AM CDT [facility] History and Physical - Hospitalist Service Date [...] Patient did present with desire for treatment. -[facility] protocol - Valium as needed - high [...] discussed with the Patient. MD Brodie Guerrero [facility] Securely message with the Public Solution Console (learn more here) Text page via [employer] Paging/Directory Chief Complaint Abdominal Pain History is [...] SpO2 95% BMI 29.29 kg/m?? Shift time: 1794-5118 Neuros: A&Ox4. Pt seems anxious. Denies any [...] Jackson RN - 10/22/2020 10:57 PM CDT Gis Application Developer efrad federico gill cover. Cesar Franco Pt needs something additional to help sleep. Thank you, Dede [phone] Plan of Care - Ashley Truong RN [...] [place] [id number] Provider Notification - Ashley Truong RN - 10/22/2020 4:38 PM CDT 7b [id number] franco Pty becoming increasingly nauseas, abd distended, -BM -flatus faint BS for 3 days. Simethicone, suppository, and now enema with no success. Maybe abd XR? [place] [phone] Plan of Care - Yulisa Espinoza RN [...] SpO2 92% BMI 29.29 kg/m?? Shift time: 8716-0071 Neuros: A&Ox4. Denies any numbness or tingling. Gave PRN oral valium x2. Cardiac: Tachy and some HTN but within normal parameters. Respiratory: WDL. Denies any SOB. Does sat in the lower 90's. GI/Gu: Voiding, not saving. No BM this shift. PRN suppository giving. Skin/Incisions: No new deficits. . Pain: DEHORNER pump 0.3 Q 10 minutes. Diet: Clears. Activity: ind. Plan: Continue with POC. Provider Notification - Dede Jackson RN - 10/21/2020 9:39 PM CDT Gis Application Developer taylor henderson. 7b rm [id number] Cesar Franco Pt is asking for a suppository. Thank you, Dede [phone] Plan of Care - Ashley Truong RN - 10/21/2020 6:32 PM CDT 3-7 p Admit 10/20 for alcohol induced pancreatitis VSS X tachy 100s Tmax 100.8 Neuro: anxious, sweaty, antsy, CIWA of 10 valium given with improvement Pain: treated with dilaudid DEHORNER 0.3/10 CMS: some on and off trembling [...] 100.3. Patient reports pain is tolerable with DEHORNER Dilaudid 0.3 every 10 min, with a 0.5 mg bump. Abdomen soft, slightly distended with bowel sounds present, patient reports he isn'tpassing gas and no BM this shift. Suppository requested per patient. Tolerating clear liquid diet. Up independently. CIWA of 1 this shift. Provider Notification - Yulisa Espinoza RN - 10/21/2020 8:12 AM CDT Paged provider at #[phone] regarding pain and BP of 155/103, HR 117 Plan of Care - Micheal Boothe RN - 10/21/2020 1:44 AM CDT Problem: Pain Acute Goal: Acceptable Pain Control and Functional Ability Outcome: No Change Intervention: Develop Pain Management Plan Recent Flowsheet Documentation Taken 10/21/2020 0036 by Micheal Boothe RNbiofuels processing technician Interventions: pain pump in use DEHORNER in placed, need constant reminder to use DEHORNER Plan of Care - Stephen Lange RN [...] Weight: 45 years old male came from [facility], history of acute alcohol withdrawal excessive alcohol use, complain of sever abdominal pain, nausea and vomiting, pt on arrival appears uncomfortable, Epigastric tenderness, rated pain 10/10, compazine and IV dilaudid 0.5 given, that was insufficient, paged, started DEHORNER dilaudid 0.3 Q 15, Zofran given at 2220, no emesis, CIWA score 3. Pt stated wants DEHORNER basal rate, pt lemos resting comfortably, if needed later, please let MD know, Expected discharge to critical access hospital once adequate pain control, LR at 125 ml/hr, Voided not saved, no BM, continue with plan of care. Plan of Care - Stephen Lange RN - 10/20/2020 10:17 PM CDT Admitted/transferred from: [facility] 2 RN skin assessment completed by Stephen Lange RN, Skin assessment finding, pt refused assessment at this time due to pain per pt Interventions/actions: Will reassess tomorrow, Pharmacy-Admission Medication History - Renetta Dewitt RPH - 10/20/2020 4:00 PM CDT Admission Medication History Completed by Pharmacy See [facility] Admission Navigator for allergy information, preferred outpatient pharmacy, prior to admission medications and immunization status. Medication History Sources: ??? Patient ??? SureScript Changes made to POUL[employer]TER medication list (reason): ??? Added: None ??? [...] Medication history completed by: Renetta Dewitt, PharmD, [facility] 10/20/2020 4:02 PM documented in this encounter [...] LAB - BLOOD ORDERABLES Performing Organization Address City/[facility] [address]/ZIP Code Phon [place] [address] Lab [address] [facility], Room 3-580 [place] [address], Lab [facility] [address] [facility], Room 3580 Platelet count (10/23/2020 7:31 [...] LAB - BLOOD ORDERABLES Performing Organization Address City/[facility] [address]/ZIP Code Ph[place] [address] Lab [address] [facility], Room 3-580 [place] [address], Lab [address], Room 3580 XR Abdomen 1 View [...] Address City/State/ZIP Code Ph[place] [address] Lab 500 [facility] Building, Room 3-580 [place] [address], Lab [place] 500 [facility] Building, Room 3580 Magnesium (10/22/2020 7:41 [...] City/State/ZIP Code Phon e Number [place] [address] Lab 500 [facility] Building, Room 3-580 [place] [address], Lab [place] [address] [facility], Room 3580 (ABNORMAL) Comprehensive metabolic panel (10/22/2020 7:41 AM CDT) [facility] gist Method Time Signature Sodium 135 [...] City/State/ZIP Code Phon e Number [place] [address] Lab [address] [facility], Room 3580 [place] [address], Lab [facility] [address] [facility], Room 3580 (ABNORMAL) CBC with platelets (10/22/2020 7:41 AM CDT) [facility] Method Time Signature WBC Count 11.6 (H) [...] LAB - BLOOD ORDERABLES Performing Organization Address City/[facility] [address]/ZIP Code Phon e Number [place] [address] Lab [address] [facility], Room 3-580 [place] [address], Lab [place] [address] [facility], Room 3580 Blood Culture Arm, Left [...] Code Phon e Number UU IDD LABORATORY [facility] [place] [address] Diag. Lab 500 [facility], Room D297 UU IDD LABORATORY [facility] Infectious [place], [place] [phone] Diseases Diagnostic [phone], [facility] Lab (IDDL) [address] [facility], Room D297 Blood Culture Hand, Right [...] Code Phon e Number UU IDD LABORATORY [facility] [place] [place] [address] Diag. Lab 500 [facility], Room D297 UU IDD LABORATORY [facility] Infectious [place], [place] [phone] Diseases Diagnostic [phone], [facility] Lab (IDDL) [address] [facility], Room D297 Lactic Acid STAT (10/21/2020 [...] City/State/ZIP Code Phon e Number [place] [address] Lab [address] [facility], Room 3-580 [place] [address], Lab [facility] [address] [facility], Room 3580 (ABNORMAL) CBC with platelets [...] City/State/ZIP Code Phon e Number [place] [address] [phone] Lab 500 [facility] Building, Room 3580 [place] [address], Lab [place] [address] [facility] Building, Room 3580 (ABNORMAL) Lipase (10/21/2020 7:35 [...] City/State/ZIP Code Phon e Number [place] [address] Lab 500 [facility] Building, Room 3-580 [place] [address], Lab [place] [address] [facility] Building, Room 3580 (ABNORMAL) Comprehensive metabolic panel (10/21/2020 7:35 AM CDT) [facility] Method Time Signature Sodium 135 133 - [...] City/State/ZIP Code Phon e Number [place] [address] Lab [address] [facility], Room 3-580 [place] [address], Lab [place] [address] [facility], Room 3580 Phosphorus (10/20/2020 3:45 PM [...] City/State/ZIP Code Phon e Number [place] [address] [phone] Lab [address] [facility], Room 3-580 [place] [address], Lab [facility] [address] [facility], Room 3580 (ABNORMAL) Magnesium (10/20/2020 3:45 [...] City/State/ZIP Code Phon e Number [place] [address] Lab [address] [facility], Room 3-580 [place] [address], Lab [facility] [address] [facility], Room 3580 Creatinine (10/20/2020 3:45 PM [...] LAB - BLOOD ORDERABLES Performing Organization Address City/[facility] [address]/ZIP Code Phon e Number [place] [address] Lab [address] [facility] Building, Room 3-580 [place] [address], Lab [place] [address] [facility], Room 3580 XR Abdomen 1 View [...] CDT EXAM: XR ABDOMEN 1 VIEW LOCATION: [facility] DATE/TIME: 10/20/2020 4:00 AM INDICATION: abdominal pain COMPARISON: None. Procedure Note Kristopher Delgado MD - 10/20/2020F ormatting of this note might be different from the original. EXAM: XR ABDOMEN 1 VIEW LOCATION: [facility] DATE/TIME: 10/20/2020 4:00 AM INDICATION: abdominal pain COMPARISON: None. IMPRESSION: Negative abdomen. Bowel gas pattern is normal. Nothing for obstruction or free air. No evidence for renal stones. Evangelist Borja MD IMG DIAGNOSTIC IMAGING ORDER BENJI Phosphorus (10/20/2020 3:50 AM CDT) P athologist [...] City/State/ZIP Code Phon e Number UR [place] [address] Care [address] [place] [address], Room M309 Lactic acid whole blood (10/20/2020 [...] City/State/ZIP Code Phon e Number UR [place] [address] Care Lab [address] [place] [address], Room M309 (ABNORMAL) Lipase (10/20/2020 3:50 AM [...] City/State/ZIP Code Phon e Number UR [place] [address] Care Lab [address] [place] [address], Room M309 CBC with platelets (10/20/2020 3:50 [...] City/State/ZIP Code Phon e Number UR [place] [address] Care Lab [address] [facility], Room M309 (ABNORMAL) Comprehensive metabolic panel (10/20/2020 3:50 AM CDT) [facility] gist Method Time Signature Sodium 138 [...] City/State/ZIP Code Phon e Number UR LABORATORY [facility] [place] [address] Care Lab [address] [facility], Room M309 documented in this encounter Visit [...] 3:44 AM CDT 0.2 mg HYDROmorphone (DILAUDID) DEHORNER 0.2 mg/mL Shift Total 10/20/2020 10:00 P M CDT OPIOID NAIVE (age less than 65 years) Continuous Rate: 0 mg/hr, DEHORNER Dose: 0.3 mg, DEHORNER Lockout: 15 Minutes, One Hour Limit: 1.2 mg, Clinician Bolus (one time dose): 0 mg, Starting on 10/20/20 at 1700, Hold the dose for analgesic side effects. Notify the provider to assess for uncontrolled pain or analgesic side effects. Do NOT give any additional opioids while on DEHORNER unless provider authorized., Intravenous New Syringe/Cartridge 10/20/2020 5:17 PM CDT HYDROmorphone (DILAUDID) DEHORNER 0.2 mg/mL Shift Total 10/22/2020 6:00 AM CDT OPIOID NAIVE (age less than 65 years) Continuous Rate: 0 mg/hr, DEHORNER Dose: 0.3 mg, DEHORNER Lockout: 10 Minutes, One Hour Limit: 1.8 mg, Clinician Bolus (one time dose): 0 mg, Starting on Wed10/21/20 at 0830, Hold the dose for analgesic side effects. Notify the provider to assess for uncontrolled pain or analgesic side effects. Do NOT give any additional opioids while on DEHORNER unless provider authorized., Intravenous Rate/Dose Verify 10/21/2020 [...] 500 mL/hr, Administer over 2 Hours, On Parmele 10/20/20 at 0330, For 1 dose lactated ringers infusion New Bag 10/20/2020 11:25 AM CDT 125 mL/hr at 125 mL/hr, Intravenous, CONTINUOUS, Please run after bolus is completed, Starting on Parmele 10/20/20 at 0330, Until [place]mele 10/20/20 at 1531 New Bag 10/20/2020 6:36 AM CDT 125 mL/hr lactated ringers infusion New Bag 10/20/2020 3:53 PM CDT 250 mL/hr at 250 mL/hr, Intravenous, CONTINUOUS, Starting on Parmele 10/20/20 at 1600, Until Parmele 10/20/20 at 1959 lactated ringers infusion Rate/Dose Change 10/21/2020 4:00 PM CDT 100 mL/hr at 125 mL/hr, Intravenous, CONTINUOUS, After additional 1L is completed, Starting on Parmele 10/20/20 at 2000, Until Wed10/21/20 at 1556 [...] 1) 075 (See Alternative - Provider: Yulisa Espinoza RN)1958 (See Alternative - Provider: Dede Jackson [...] Medication Order 10/21/2020 10/22/2020 10/23/2020 HYDROmorphone (DILAUDID) DEHORNER 0.2 mg/mL O PIOID NAIVE (age less than 65 years) (CANCELED) 0903 (New Syringe/Cartridge - Provider: Yulisa Espinoza RN)1157 (New Syringe/Cartridge - Provider: Yulisa Espinoza RN)1449 (Shift Total - Provider: Yulisa Espinoza RN)2136 (Rate/Dose Verify - Provider: Dede Jackson RN) 0600 (Shift Total - Provider: Dede Jackson RN) Continuous Rate: 0 mg/hr, DEHORNER Dose: 0.3 mg, DEHORNER Lockout: 10 Minutes, One Hour Limit: 1.8 mg, Clinician Bolus (one time dose): 0 mg, Starting on Wed10/21/20 at 0830, Hold the dose for analgesic side effe cts. Notify the provider to assess for u ncontrolled pain or analgesic side effects. Do NOT give any additional opioids while on DEHORNER unless provider authorized., Intravenous lactated ringers infusion [...] after each naloxone dose. Consider transfer to [facility] if patient respiratory parameters hav e not [...] response.
documented in this encounter Care Teams Manager Compliance Relationship Specialty Start Date End Date Aydin Morales MD PCP - General 11/01/09 [address] [facility] [address] [place] [address] documented as of this encounter
--- OUTSIDE RECORDS SUMMARY | 2021-11-25 03:46 | XMS_ITS | Encounter Summary ---
:1975 Author Organization [place] Address [address] [place] [address] Care Team Providers Name Role Phone Aydin Morales MD Primary Care Provider Reason for Visit Reason Onset Date Comments MH/CD Inpatient 10/19/2020 Encounter Details Date Type Department Care Team Description 10/19/2020 Telephone [facility] Generic, Behavioral MH/ CD Inpatient Behavioral Health In shirley Skaggs MD [address] [place] [address] Social History Tobacco Use Types Packs/Day [...] - 10/19/2020 2:27 PM CDT S: [facility], 45/M, alcohol detox B: Pt reports [...] Intake awaiting lab work 414pm - Patrice, promotional representative provider, paged 425pm - Patrice accpets Pt placed in queue 435pm - unit charge notified, 730pm for report 436pm - ED charge notified via text page documented in this encounter Plan of Treatment Not on filedocumented as of this encounter Visit Diagnoses Not on filedocumented in this encounter Care Teams Adjunct Teacher Relationship Specialty Start Date End Date Aydin Morales MD PCP - General 11/01/09 100[address] [facility] 100 [place] [address] documented as of this encounter
--- OUTSIDE RECORDS SUMMARY | 2021-11-25 03:46 | XMS_ITS | Encounter Summary ---
:1975 Author Organization [facility] Address [address] [place] [address] Care Team Providers Name Role Phone Aydin Morales MD Primary Care Provider Reason for Referral Consult/Transfer Care (Routine) - New Request Specialty Diagnoses / Procedures Referred By Contact Refer red To Contact Diagnoses Acute pain of right knee Anupam Mclain DO [address] [place], [place] [address] Referral ID Status Reason Start Date Expiration Date Visits V isits Requested Authorized [id number] New Request 08/18/2021 11/17/2022 1 1 Scheduling Instructions Your provider has recommended an appoint ment with [facility]. You can quickly make your appointment online at [employer]/schedule. You can also call [phone] for help scheduling yo ur appointment. We suggest you call your health insurance company about your cove rage and benefits for this appointment. Reason for Visit Reason Comments MRI Results Encounter Details Date Type Department Care Team Description 08/18/2021 Office Visit Anupam Cadet, Acute viv n of right knee (Primary Dx); Orthopedic Urgent DO Acute medial meniscus tear of right knee , subsequent encounter Care [address] [facility] [address] [place] [address] [phone] Social History Tobacco Use Types Packs/Day Years [...] Pressure - - Pulse - - Temperature 36.7 ??C (98 ??F) 08/18/2021 1:27 PM CDT Respiratory Rate - - Oxygen Saturation - - Inhaled Oxygen Concentration - - Weight - - Height - - Body Mass Index - - documented in this encounter Patient Instructions Patient InstructionsOlga Mauro - 08/18/2021 2:21 PM CDT Thank you for choosing [facility] for your health care visit today. Anupam Mclain, Imaging Football Coach: [facility] [place] [address]. Call [phone] to schedule. Medication Requests: Prescriptions are filled on Weekdays before 3:00PM For all medication refills: Request a refill using MyChart or contact your Pharmacy Paperwork Requests: FMLA or disability paperwork can be faxed to: [phone] Please allow 7-10 business days for completion of all paperwork. [facility] Worker's Compensation Services: E-mail Address: [email or web address] What is Know Your Cost? Know Your Cost is a service for patients and patient/members to call and receive personalized cost information and estimates across our care group. The phone number is (COST) Wednesday - Wednesday 8 AM to 5 PM To request copies of your medical records, call: [phone] (option 4) Diagnosis: Right knee medial meniscus tear Plan: Follow Up: Schedule an appointment with for further care. If you have any questions regarding your visit or next steps, please contact us at [phone]. documented in this encounter Progress Notes Anupam Mclain, DO - 08/18/2021 12:00 AM CDT NAME: ANASTASIYA GRANADOS CSN: [id number] CLINIC NOTE DATE OF SERVICE: 08/18/2021 : 1975 HPI: This is a 45-year-old male who presents for followup regarding a recent MRI. He was seen by my colleague, Dr. Ramirez on 08/13/2021, regarding a complaint of right knee pain that started 2 days prior. He has a significant past surgical history and has been seen by Dr. Isaac Peña with Orthopedic s urgery in the past. He began noticing a recurrence of discomfort, which he noted after playing softball and doing some yard work around that time. Given his exam findings, an MRI of his right knee was ordered. He presents today to discuss his results. Overall, he has not had much improvement since hislast visit, and he continues to note some fairly diffuse pain more localized to the medial aspect ofhis knee. MRI report of his right knee is as follows: 1. Tearing of the medial meniscus with a horizontal cleavage tear of the body and a displaced flap adjacent to the root attachment. 2. Grade 2 cartilage loss on both sides of the medial compartment. Mild reactive subchondral edema, medial tibial plateau. 3. Slight cartilage irregularity and edema, both sides of the lateral compartment with a more focal cartilage tear along the posterior weightbearing surface which is approximately 9 mm x 5 mm. 4. Cartilaginous irregularity and fissuring within the central aspect of the femoral trochlear sulcus, but there is a near full-thickness cartilage loss. 5. Grade 1 sprain of the MCL without tearing. 6. Medial gastrocnemius tendinopathy without tearing. 7. Popliteus tendinopathy without tearing. 8. Quadriceps and patellar tendinopathy without tearing. 9. Moderate effusion. 10. Popliteal cyst. ASSESSMENT: Right knee medial meniscus tear. PLAN: We discussed his current findings. His MRI shows several findings but most notably a medial meniscus tear with a displaced flap fragment. Given his current findings and his past surgical history,we discussed possibility of an orthopedic surgical referral. He is interested in this, and he will be set up to be seen by Dr. Isaac Peña with Orthopedic Surgery regarding his MRI findings. He is overa ll comfortable with plan. Questions were answered, and he will follow up as directed. ANUPAM MCLAIN DO MAC/ADALBERTOS /[id number] documented in this encounter Plan of Treatment Scheduled Referrals Name Type Priority Associated Diagnoses Order S chedule Orthopaedic Consult Referral Routine Acute pain of right O rdered: 08/18/2021 Adult/Peds knee documented as of this encounter Visit Diagnoses Diagnosis Acute pain of right knee - Primary Acute medial meniscus tear of right knee , subsequent encounter documented in this encounter Care Teams Human Resources Assistant Relationship Specialty Start Date End Date Aydin Morales MD PCP - General 08/29/13 100[address] [facility] [address] [place] [address] documented as of this encounter
--- OUTSIDE RECORDS SUMMARY | 2021-11-25 03:46 | XMS_ITS | Encounter Summary ---
:1975 Author Organization [facility] Address [address] [place] [address]. [place] [address] Care Team Providers Name Role Phone Aydin [...] on filedocumented in this encounter Care Teams Collar Pointer Relationship Specialty Start Date End Date Aydin Morales MD PCP - General 11/01/09 1001 [facility] 100 [place] [address] documented as of this encounter
--- OUTSIDE RECORDS SUMMARY | 2021-11-25 03:46 | XMS_ITS | Encounter Summary ---
:1975 [facility] Address [address] [place] [address] Care Team Providers Name Role Phone Aydin Morales MD Primary Care Provider Reason for Visit Procedure/Equipment (Routine) - Closed Specialty Diagnoses / Procedures Referred By Contact Refer red To Contact Diagnoses Effusion of right knee Sourav Ramirez MD Procedures MR Knee Rt WO IV Cont [address] [facility] [address] [place] [address] Referral ID Status Reason Start Date Expiration Date Visits Requ ested Visits Authorized [id number] Closed 08/13/2021 11/12/2022 1 1 Encounter Details Date Type Department Care Team Description 08/18/2021 Ancillary Sourav Ramos Effusion of right Procedure Radiology MRI MD Amberly knee [address] [facility] [place] [address] [facility] [place] [phone] [address] Social History Tobacco Use Types Packs/Day Years [...] MR KNEE RT WO IV CONT LOCATION: [facility] DATE/TIME: 08/18/2021 12:10 PM INDICATION: [...] is intact. -Pes anserine tendons are normal. Preschool Associate Teacher omedial corner complex ligaments are intact. POSTEROLATERAL [...] MR KNEE RT WO IV CONT LOCATION: [facility] DATE/TIME: 08/18/2021 12:10 PM INDICATION: [...] is intact. -Pes anserine tendons are normal. Preschool Associate Teacher omedial corner complex ligaments are intact. POSTEROLATERAL [...] joint documented in this encounter Care Teams Crude Tester Relationship Specialty Start Date End Date Aydin Morales MD PCP - General 08/29/13 1001 [facility] 100 [place] [address] documented as of this encounter
--- OUTSIDE RECORDS SUMMARY | 2021-11-25 03:46 | XMS_ITS | Encounter Summary ---
:1975 Author Organization [facility] Address [address] [place] [address] Care Team Providers Name Role Phone Elsewhere, Pcp Primary Care Provider Unavailable Reason for Visit Reason Comments Vomiting Encounter Details Date Type Department Care Team Description 07/22/2021 - Emergency [facility] Alcohol Abuse With Withdrawa l Uncomplicated (HCC) (Primary Dx); 07/23/[address] Elevated Liver Function Test ABBY VALLECILLO [id number] [facility] [phone] Social History Tobacco Use Types Packs/Day Years Used Date Smoking Tobacco: Every Day Sex Assigned at Date Recorded Male 10/02/2021 1:59 PM CDT documented as of this encounter Plan of Treatment Not on filedocumented as of this encounter Visit Diagnoses Diagnosis Alcohol Abuse With Withdrawal Uncomplica yasmany (HCC) - Primary Elevated Liver Function Test documented in this encounter Care Teams Facilities And Grounds Director Relationship Specialty Start Date End Date Elsewhere, Pcp PCP - General Family Medicine 08/10/17 documented as of this encounter
--- OUTSIDE RECORDS SUMMARY | 2021-11-25 03:46 | XMS_ITS | Encounter Summary ---
:1975 Author Organization [facility] Address [address] [place] [address]. [place] [address] Care Team Providers Name Role Phone Aydin Morales MD Primary Care Provider Reason for Visit Reason Comments ER NOTES Encounter Details Date Type Department Care Team Description 11/01/2009 Orders Only [facility] Brian Vicente Dog Bite (Primary Dx) DO Loc [address] [facility] ABBY AREVALO [address] (Wo rk) Social History Tobacco Use Types Packs/Day Years Used Date Never Assessed Sex Assigned at Date Recorded Not on file documented as of this encounter Plan of Treatment Not on filedocumented as of this encounter Visit Diagnoses Diagnosis Dog bite(E906.0) - Primary Dog bite documented in this encounter Care Teams Guest Specialist Relationship Specialty Start Date End Date Aydin Morales MD PCP - General 11/01/09 1001 [facility] 100 [place] [address] documented as of this encounter
--- OUTSIDE RECORDS SUMMARY | 2021-11-25 03:46 | XMS_ITS | Clinical Summary ---
:1975 Author Organization [facility] [place] [address] Care Team Providers Name Role Phone Melisa [...] Name Administration Dates Next Due COVID-19 vaccine (CoachMePlus-J&J) PF, 06/08/2020 MDV COVID-19 vaccine (Double Encore 03/05/2021 30mcg/0.3mL) PF, MDV HepA-HepB (Twinrix) 06/25/2014 [...] of2 resultswithin the time period is included. [facility] Method Time Signature WHITE BLOOD 5.7 4.5 - 11.0 11/15/2021 [place] COUNT thou/cu mm 6:59 AM [facility] RED BLOOD COUNT 5.02 4.30 - 11/15/2021 [place] 5.90 6:59 AM [facility] mil/cu mm LABORATORY HEMOGLOBIN 17.1 13.5 - 11/15/2021 [facility] 17.5 g/dL 6:59 AM [facility] HEMATOCRIT 48.9 37.0 - 11/15/2021 [facility] 53.0 % 6:59 AM [facility] MCV 97 80 - 100 11/15/2021 [facility] fL 6:59 AM [facility] MCH 34.1 (H) 26.0 - 11/15/2021 [place] 34.0 pg 6:59 AM [facility] MCHC 35.0 32.0 - 11/15/2021 [facility] 36.0 g/dL 6:59 AM [facility] RDW 14.7 11.5 - 11/15/2021 [facility] 15.5 % 6:59 AM [facility] PLATELET COUNT 196 140 - 440 11/15/2021 [facility] thou/cu mm 6:59 AM [facility] MPV 10.7 6.5 - 11.0 11/15/2021 [place] fL 6:59 AM [facility] Specimen Anatomical Collection Method / Collection Time Recei alberta Time (Source) Location / Volume Laterality Blood BLOOD SPECIMEN / Venipuncture / 11/15/2021 6:32 2021 6:35 Unknown Unknown AM CDT AM CDT Kory Reynoso MD HEMATOLOGY Performing Organization Address City/State/ZIP Code Phon e Number [facility] [address] [place] [address] RED CELL MORPHOLOGY (11/15/2021 6:32 AM CDT) [facility] Method Time Signature RBC COMMENT RBC [...] Reynoso MD HEMATOLOGY Performing Organization Address City/[facility]/ZIP Code Phon e Number [facility] [address] [place] [address] PLATELET ESTIMATE (11/15/2021 6:32 AM CDT) [facility] Method Time Signature PLATELET Adequate Adequate, No 11/15/2021 [place] ESTIMATE estimate 6:59 AM [facility] Specimen Anatomical Collection Method / Collection Time Recei alberta Time (Source) Location / Volume Laterality Blood BLOOD SPECIMEN / Venipuncture / 11/15/2021 6:32 2021 6:35 Unknown Unknown AM CDT AM CDT Kory Reynoso MD HEMATOLOGY Performing Organization Address City/State/ZIP Code Phon e Number [facility] [address] [place] [address] MANUAL DIFFERENTIAL (11/15/2021 6:32 AM CDT) P [...] [place] ABSOLUTE thou/cu mm 6:[address] [facility] MONOCYTES 0.5 <0.9 11/15/2021 [place] ABSOLUTE thou/cu mm 6:[address] [facility] EOSINOPHILS 0.2 <0.5 11/15/2021 [place] ABSOLUTE thou/cu mm 6:[address] [facility] BASOPHILS 0.0 <0.3 11/15/2021 [place] ABSOLUTE thou/cu mm 6:[address] [facility] Specimen Anatomical Collection Method / Collection Time Recei alberta Time (Source) Location / Volume Laterality Blood BLOOD SPECIMEN / Venipuncture / 11/15/2021 6:32 2021 6:35 Unknown Unknown AM CDT AM CDT Kory Reynoso MD HEMATOLOGY Performing Organization Address [facility] [address] [place] [address] LIPASE (11/15/2021 6:32 AM CDT)Only the most recent of2 resultswithin the time period is included. P athologist Signature LIPASE 11.0 8.0 - 78.0 11/15/2021 [place] IU/L 6:55 AM [facility] Specimen Anatomical Collection Method / Collection Time Recei alberta Time (Source) Location / Volume Laterality Blood BLOOD SPECIMEN / Venipuncture / 11/15/2021 6:32 2021 6:35 Unknown Unknown AM CDT AM CDT Kory Reynoso MD CHEMISTRY Performing Organization Address [facility] e Number [facility] [address] [place] [address] (ABNORMAL) HEPATIC FUNCTION PANEL (11/15/2021 6:32 AM CDT)Only the most recent of2 resultswithin the time period is included. Patholo gist Method Time Signature ALBUMIN 4.1 3.5 - 5.2 11/15/2021 [place] g/dL 6:55 AM [facility] PROTEIN,TOTAL 7.2 6.0 - 8.0 11/15/2021 [place] g/dL 6:55 AM [facility] GLOBULIN 3.1 2.0 - 3.7 11/15/2021 [place] g/dL 6:55 AM [facility] A/G RATIO 1.3 1.0 - 2.0 11/15/2021 [place] 6:55 AM [facility] BILIRUBIN,TOTAL 1.0 0.2 - 1.2 11/15/2021 [place] mg/dL 6:55 AM [facility] BILIRUBIN,DIRECT 0.6 (H) 0.1 - 0.5 11/15/2021 [place] mg/dL 6:55 AM [facility] BILIRUBIN,INDIRE 0.4 0.2 - 0.8 11/15/[address] [place] [address] mg/dL 6:55 AM [facility] ALK PHOSPHATASE 164 (H) 50 - 136 11/15/2021 [place] IU/L 6:55 AM [facility] ALT (SGPT) 132 (H) 8 - 45 11/15/2021 [place] IU/L 6:55 AM [facility] AST (SGOT) 177 (H) 2 - 40 11/15/2021 [facility] IU/L 6:55 AM [facility] Specimen Anatomical Collection Method / Collection Time Recei alberta Time (Source) Location / Volume Laterality Blood BLOOD SPECIMEN / Venipuncture / 11/15/2021 6:32 2021 6:35 Unknown Unknown AM CDT AM CDT Kory Reynoso MD CHEMISTRY Performing Organization Address City/State/ZIP Code Phon e Number [facility] [address] [place] [address] (ABNORMAL) BASIC METABOLIC PANEL (11/15/2021 6:32 AM CDT)Only the most recent of 2 resultswithin the time period is included. Analysis Performed At Patho logist Time Signature SODIUM 141 135 - 145 11/15/2021 [place] mmol/L 6:56 AM [facility] POTASSIUM 2.9 (L) 3.5 - 5.0 11/15/2021 [place] mmol/L 6:56 AM [facility] CHLORIDE 102 98 - 110 11/15/2021 [place] mmol/L 6:56 AM [facility] CO2,TOTAL 21 21 - 31 11/15/2021 [place] mmol/L 6:56 AM [facility] ANION GAP 18 5 - 18 11/15/2021 [place] 6:56 AM [facility] GLUCOSE 119 (H) 65 - 100 11/15/2021 [place] mg/dL 6:56 AM [facility] CALCIUM 9.2 8.5 - 10.5 11/15/2021 [place] mg/dL 6:56 AM [facility] BUN 3 (L) 8 - 25 11/15/2021 [facility] mg/dL 6:56 AM [facility] CREATININE 0.72 0.72 - 11/15/2021 [place] 1.25 mg/dL 6:56 AM [facility] BUN/CREAT RATIO 4 (L) 10 - 20 11/15/2021 [facility] 6[facility]56 AM [facility] eGFR >90 >90 11/15/2021 [facility] mL/min/1.7 6:56 AM [facility] 3m2 LABORATORY Comment: As of 2021, eGFR [...] Organization Address City/State/ZIP Code Phon e Number [facility] [address] [place] [address] (ABNORMAL) ETHANOL SERUM OR PLASMA (11/11/2021 12:14 PM CDT) P athologist Signature ETHANOL 0.232 (H) <0.010 11/11/2021 [place] g/dL 12:41 PM [facility] Specimen Anatomical Collection Method Collection Time Receive d Time (Source) Location / / Volume Laterality Blood BLOOD SPECIMEN / Capillary / 11/11/2021 12:14 022 Unknown Unknown PM CDT 12:21 PM CDT Jules Fitzpatrick MD CHEMISTRY Performing Organization Address [facility]/ZIP [facility] Phon e Number [facility] [address] [place] [address] C-REACTIVE PROTEIN (11/11/2021 12:14 PM CDT) P athologist Signature C-REACTIVE 0.10 <0.50 11/11/2021 [place] PROTEIN mg/dL 12:[address] [facility] Specimen Anatomical Collection Method Collection Time Receive d Time (Source) Location / / Volume Laterality Blood BLOOD SPECIMEN / Capillary / 11/11/2021 12:14 022 Unknown Unknown PM CDT 12:21 PM CDT Jules Fitzpatrick MD CHEMISTRY Performing Organization Address [facility] Phon e Number [facility] [address] [place] [address] MAGNESIUM (11/11/2021 12:14 PM CDT) P athologist Signature MAGNESIUM 2.0 1.6 - 2.6 11/11/2021 [place] mg/dL 12:[address] [facility] Specimen Anatomical Collection Method Collection Time Receive d Time (Source) Location / / Volume Laterality Blood BLOOD SPECIMEN / Capillary / 11/11/2021 12:14 022 Unknown Unknown PM CDT 12:21 PM CDT Jules Fitzpatrick MD CHEMISTRY Performing Organization Address City/[facility]/ZIP Code Phon e Number [facility] [address] [place] [address] from Last 3 Months Insurance Payer Benefit Plan / Subscriber ID Effective Dates Phone Addre ss Type Group [facility] [id number] 2018-Present [address] [address] [place] [address] Juan Ramon Granados Williams Personal/Family Self 1975 [address] (Home) [place] [id number] Advance Directives Latest Code Status on File [...] 1:12 PM 09/28/2016 9:55 PM Care Teams Paralegal Secretary Relationship Specialty Start Date End Date Melisa Delgado NP PCP - General Family Practice 04/05/14 [address] [place] [address]
--- OUTSIDE RECORDS SUMMARY | 2021-11-25 03:46 | XMS_ITS | Encounter Summary ---
:1975 Author [facility] Address [address] [place] [address] Care Team Providers Name Role Phone Aydin Morales MD Primary Care Provider Reason for Visit Procedure/Equipment (Routine) - Incomplete Specialty Diagnoses / Procedures Referred By Contact Refer red To Contact Diagnoses Acute pain of right knee Effusion of right knee Sourav Ramirez MD Procedures XR Knee Lt 1-2 Views Comparison [address] [facility] [address] [place] [address] Referral ID Status Reason Start Date Expiration Date Visits V isits Requested Authorized [id number] Incomplete 08/13/2021 11/12/2022 1 1 Encounter Details Date Type Department Care Team Description 08/13/2021 Ancillary [facility] Sourav Ramirez Acute pain of right knee; Procedure [address] Zhane Gaming MD Effusion of right knee Drive [address] [facility] [address] [place], [place] [address] [phone] Social History Tobacco Use Types Packs/Day Years [...] joint documented in this encounter Care Teams Administrative Appeals Tribunal Member Relationship Specialty Start Date End Date Aydin Morales MD PCP - General 08/29/13 1001 [facility] 100 [place] [address] documented as of this encounter
--- OUTSIDE RECORDS SUMMARY | 2021-11-25 03:46 | XMS_ITS | Clinical Summary ---
:1975 Author Organization [facility] Address [address] [place] [address] Care Team Providers Name Role Phone Elsewhere, Pcp Primary Care Provider Unavailable Source Comments Patient records contain information from all sites at [facility]. For routine questions regarding patient records, call [phone] during business hours, M-F 8:00 AM - 5:00 PM Central Time. Record requests for emergency care only can be directed to [phone] at any time.[facility] Allergies No known active allergies Medications Medication Sig Dispensed Refills Start Date End Date Status naltrexone (DEPADE) 50 Take 50 mg by 0 Active mg tablet mouth daily. FLUoxetine (PROzac) 40 Take 40 mg by 0 Active mg capsule mouth daily. clonazePAM (KlonoPIN) Take 0.5 mg by 0 Active 0.5 mg tablet mouth 2 (two) times a day. omeprazole (PriLOSEC) Take 20 mg by [address] capsule mouth every morning before breakfast. tamsulosin (FLOMAX) Take 0.4 mg by 0 Active 0.4 mg 24 hr capsule mouth daily. Immunizations Name Administration Dates Next Due Influenza, Unspecified 12/18/2013 Tdap 08/20/2012 Family History Medical History Relation Name Comments Diabetes Father Hypertension Father Relation Name Status Comments Father Social History Tobacco Use Types Packs/Day Years Used Date Smoking Tobacco: Every Day Sex Assigned at Date Recorded Male 10/02/2021 1:59 PM CDT Last Filed Vital Signs Vital Sign Reading Time Taken Comments Blood Pressure 130/84 02/12/2014 11:24 AM GREEN PROMOTIONS SPECIALIST Pulse 88 02/12/2014 11:24 AM GREEN PROMOTIONS SPECIALIST Temperature - - Respiratory Rate 16 02/12/2014 11:24 AM GREEN PROMOTIONS SPECIALIST Oxygen Saturation - - Inhaled Oxygen Concentration - - Weight 104 kg (228 lb 13.4 oz) 12/18/2013 9:53 AM CDT Height 180 cm (5' 10.87) 02/12/2014 11:24 AM GREEN PROMOTIONS SPECIALIST Body Mass Index 32.04 12/18/2013 9:53 AM CDT Plan of Treatment Health Maintenance Due Date Last Done Comments CT Colonography 1975 Cologuard 1975 Colonoscopy 1975 Colorectal Cancer Screening 1975 FIT 1975 HIV Screening 1975 Hepatitis C Screening 1975 Hepatitis B Vaccines (2 of 3 - Hep 07/23/2014 06/25/2014 B Twinrix 3-dose series) Depression Screening (Annual 03/08/2021 PHQ-2) COVID-19 Vaccine (3 - Booster for 04/30/2021 03/05/2021, Shelbie series) Influenza Vaccine (#1) 2021 01/02/2021, 11/27/2019, 02/24/2019, Additional history exists Pneumococcal vaccine (0-64 years) 03/05/2022 03/05/2021 (2 - PCV) DTaP,Tdap,and Td Vaccines (3 - Td 08/20/2022 08/20/2012, or Tdap) Fasting Glucose for Diabetes 05/14/2024 05/14/2021, 022, Screening 03/24/2021, Additional history exists Lipid (Cholesterol) Screening 11/25/2025 11/25/2020, 2019, 11/10/2018 Insurance Payer Benefit Plan Subscriber ID Effective Phone Address Typ e / Group Dates [facility] [id number] 2020-Nicole [phone] [id number] [place] [address] Care Teams Sail Finisher Machine Relationship Specialty Start Date End Date Elsewhere, Pcp PCP - General Family Medicine 08/10/17
--- OUTSIDE RECORDS SUMMARY | 2021-11-25 03:46 | XMS_ITS | Encounter Summary ---
:1975 Author Organization [place] [facility] Address [address] [place] [address]. [place] [address] Care Team Providers Name Role Phone Unavailable Primary Care Provider Unavailable Encounter Details Date Type Department Care Team Description 06/03/2009 Results Only HOSP RESULTS Colin Silva MD [address] [place], [place] [phone] (Wo rk) Social History [...] was read by [employer] [place], [place]. Bryan Murry MD SPECIAL IMAGING STUDIES [...]
--- OUTSIDE RECORDS SUMMARY | 2021-11-25 03:46 | XMS_ITS | Encounter Summary ---
:1975 Author Organization [facility] Address [address] [place] [address] Care Team Providers Name Role Phone Unavailable Primary Care Provider Unavailable Encounter Details Date Type Department Care Team Description 02/12/2014 Hospital Encounter HX [facility] Venkata Cavanaugh P.A.-C. [address] [place] [phone] (Wo rk) Social History Tobacco Use Types Packs/Day Years Used Date Smoking Tobacco: Never Assessed Sex Assigned at Date Recorded Male 10/02/2021 1:59 PM CDT documented as of this encounter Last Filed Vital Signs Vital Sign Reading Time Taken Comments Blood Pressure 130/84 02/12/2014 11:24 AM FILM MASKER Pulse 88 02/12/2014 11:24 AM FILM MASKER Temperature - - Respiratory Rate 16 02/12/2014 11:24 AM FILM MASKER Oxygen Saturation - - Inhaled Oxygen Concentration - - Weight - - Height 180 cm (5' 10.87) 02/12/2014 11:24 AM FILM MASKER Body Mass Index - - documented in this encounter Progress Notes Cyndie Cavanaugh P.A.-C. - 02/12/2014 11:03 AM CST [id number] CHIEF COMPLAINT/REASON FOR VISIT To establish care. [...] him that we will not prescribe this terminal press operator for him. He is in agreement [...] CAVANAUGH PA-C On: 02/14/2014 09:21 AM Source: [facility] MHSDOLBEYNONRADSYS Document Id: [id number] MASKER documented in this encounter Miscellaneous Notes Miscellaneous - Kusum Daigle - 08/21/2016 12:45 PM CDT Health Maintenance Reminder August 21, 2016 ANASTASIYA GRANADOS [address] [facility] [id number] Dear ANASTASIYA GRANADOS, We have developed a [...] visit with us more convenient. Please call [phone] to schedule services that are past due or that may shortly become due (thank you if you have already done so). We will follow up in three to six months should you have more services to schedule at that time. If you have already received any of the listed past due or upcoming services outside of [facility], please call [phone] to add them to your medical record. You may want to consider contacting your health insurance company to make sure these services are covered and find out if there will be any riv-ic-paofpj expense. If you have any questions about the services listed above, or if you are no longer receiving care from [facility], please contact us at [phone]. Thank you for partnering to provide you with the best care possible. We encourage you to set up your Patient Online Services account [email or web address], where you can communicate in a convenient way with us, schedule appointments, receive lab results and more. To set up your account, you will need your [facility] Number, which is [id number]. Thank you for choosing us, Cyndie Cavanaugh P.A.-C. and the [facility], for your health care needs! Sincerely, KUSUM DAIGLE Electronic Signature Electronically Signed By: KUSUM DAIGLE LPN On: August 21, 2016 This document has images extracted. Source: [facility] POWERCHART Document Id: [id number] Electronically signed by Francisco [facility] Drop Wire Aligner [id number] at 09/09/2016 9:06 AM CDT Miscellaneous - Cyndie Cavanaugh P.A.-C. - 02/12/2014 12:40 PM CST Ambulatory Patient Summary [address] [id number] Visit Information Name: DEZ GRANADOSIN FER [facility] Number: [id number] Current Date: 02/12/2014 12:40:45 Physicians [...] Oral, once a day New Routed to [facility] [address] [facility] [place] [id number] HYDROcodone-acetaminophen (Clifton 5 mg-325 mg oral tablet) 1 Tablet(s), [...] appointment detail needed. Your Goals/Additional instructions: Source: [facility] POWERCHART Document Id: [id number] MASKER Miscellaneous - Cyndie Cavanaugh P.A.-C. - 02/12/2014 12:40 PM CST Ambulatory Discharge Medication List [address] [place] [id number] Visit Information Name: ANASTASIYA GRANADOS [facility] Number: [id number] Visit Date: 02/12/2014 12:40:44 Attending [...] Oral, once a day New Routed to [place] [address] [place], [place] [id number] HYDROcodone-acetaminophen (Clifton 5 mg-325 mg oral tablet) 1 Tablet(s), [...] PA-C Signed On:12-FEB-2014 12:40:40 Additional Information: Source: [facility] POWERCHART Document Id: [id number] MASKER Miscellaneous - Elizabeth Martin L.P.N. - 02/12/2014 11:24 AM CST Adult Bee Rancher Intake/History Adult Bee Rancher Intake/History Entered On: 02/12/2014 11:27 FILM MASKER Performed On: 02/12/2014 11:24 FILM MASKER by ELIZABETH MARTIN Intake Chief Complaint : [...] 71 inch(es)) ELIZABETH MARTIN - 02/12/2014 11:24 FILM MASKER General Info Information Given By : Patient Languages : Jamaican Is Patient Female and 13-50 no hysterectomy : No ELIZABETH MARTIN - 02/12/2014 11:24 FILM MASKER Subjective Pain Symptoms : Yes ELIZABETH MARTIN - 02/12/2014 11:24 FILM MASKER Pain Pain Assessment Grid Pain 1 Location : Shoulder (Comment: R shoulder pain [ELIZABETH MARTIN 02/12/2014 11:24 FILM MASKER] ) ELIZABETH MARTIN 02/12/2014 11:24 FILM MASKER Dependent Habits Tobacco Use/Currently Using : Yes Exposure to Tobacco Smoke : Patient smokes Smoking Status : Current every day smoker ELIZABETH MARTIN 02/12/2014 11:24 FILM MASKER Tobacco Use Grid Cigarette Use Packs/Day : 2 ELIZABETH MARTIN - 02/12/2014 11:24 FILM MASKER ID Screen Travel Within Last 21 Days : No ELIZABETH MARTIN 02/12/2014 11:24 FILM MASKER Source: [facility] POWERCHART Document Id: [id number] FILM MASKER!31 MASKER documented in this encounter Plan of Treatment Not on filedocumented as of this encounter Visit Diagnoses Not on filedocumented in this encounter
--- OUTSIDE RECORDS SUMMARY | 2021-11-25 03:46 | XMS_ITS | Clinical Summary ---
:1975 Author Organization [facility] Address [address] [place] [address] Care Team Providers Name Role Phone Aydin [...] Effective Phone Address T ype Group Dates [facility] [id number] 2020-Prese [phone] [address] [facility] [address] [place] [address] [facility] [id number] 2020-Prese [phone] [place] [address] Juan Ramon Granados Personal/Family Self 1975 [address] (Home) [facility] [phone] Brodie [place] (Work) [id number] Juan Ramon Granados Behavioral Self 1975 [address] (Home) [facility] [phone] [place] [place] (Work) [address] Advance Directives For more information, please contact: [phone] Latest Code Status on File Code Status [...] or legal decision maker available Care Teams Fraud Investigator Relationship Specialty Start Date End Date Aydin Morales MD PCP - General 11/01/09 100[address] [facility] [address] [place] [address]
--- OUTSIDE RECORDS SUMMARY | 2021-11-25 03:46 | XMS_ITS | Clinical Summary ---
:1975 [facility] Address [address], [place] [address] Care Team Providers Name Role Phone Aydin [...] for each transition of care or referral. [employer] Allergies Active Allergy Reactions Severity Noted Date [...] 04/04/2021 Active tablet hours as needed. pancrelipase, Uli-Mtao-Ejju, 0 04/26/2021 Active (CREON) 00071-38163 units capseul-delayed release particles sildenafil (VIAGRA) 100 [...] Phone Address Type Plan / Dates Group [facility] [id number] 2019-Pres [phone] [phone] [place] [address] Juan Ramon Granados Personal/Family Self 1975 [phone] [address] (Home) [place] [address] Care Teams Licsw Relationship Specialty Start Date End Date Aydin Morales MD PCP - General 08/29/13 1001 [facility] [address] [place] [place] [id number]
--- OUTSIDE RECORDS SUMMARY | 2021-11-25 03:47 | XMS_ITS | Encounter Summary ---
:1975 Author Organization [facility] Address [address], [place] [address] Care Team Providers Name Role Phone Aydin Morales MD Primary Care Provider Encounter Details Date Type Department Care Team Description 12/10/2020 Anesthesia Event [facility] Segundo Wetzel, [address] [facility] Kashif gross MD [place], [place] [address] [address] [facility] [phone] [place], [place] [address] (Wo rk) Anesthesia Record Procedure Summary Procedure [...] signed by Kristy Penn APRN, CR NA 1445 An Stop Care transferred . 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
--- OUTSIDE RECORDS SUMMARY | 2021-11-25 03:47 | XMS_ITS | Encounter Summary ---
:1975 Author Organization [facility] Address [address] [place] [address] Care Team Providers Name Role Phone Aydin Morales MD Primary Care Provider Reason for Visit Reason Comments Knee Problem right MRI results Encounter Details Date Type Department Care Team Description 11/21/2020 Office Visit [facility] Isaac Peña MD Chronic pain of right knee (Primary Dx); [facility] [address] [place] [address] Complex tear of medial meniscus of right knee as current injury, initial encounter; [address] [place], [place] History of arthroscopy of ri ght knee; [place] [address] Primary osteoarthritis of right knee; [address] Sprain [...] 11/21/2020 9:20 AM CDT Juan Ramon Granados [id number] 1975 [facility] Orthopaedic Surgery Follow-Up 11/21/2020 Interval History: [...] sequela documented in this encounter Care Teams Service Delivery Manager Relationship Specialty Start Date End Date Aydin Morales MD PCP - General 08/29/13 1001 [facility] 100 [place] [address] documented as of this encounter
--- OUTSIDE RECORDS SUMMARY | 2021-11-25 03:47 | XMS_ITS | Encounter Summary ---
:1975 Author Organization [facility] Address [address], [place] [address] Care Team Providers Name Role Phone Aydin Morales MD Primary Care Provider Encounter Details Date Type Department Care Team Description 12/19/2013 Hospital Encounter [facility] Shanique Elizabeth MD [facility] [address] [place] [address] [address] [place] [address] [place], [place] [address] [phone] Social History Tobacco Use Types Packs/Day Years Used Date Smoking Tobacco: Never Assessed Sex Assigned at Date Recorded Not on file documented as of this encounter Medications at Time of Discharge Medication Sig Dispensed Refills Start Date End Date MORPHINE SULFATE ER OR Take 1 tablet by 20 tablet 0 014 12/29/2013 mouth 2 times daily for 20 doses. Do not cut/crush/chew Indications: PAIN oxyCODONE-acetaminophen Take 1-2 tablets by 40 tablet 0 12/22/2013 (AKA PERCOCET) 5-325 MG mouth every 6 hours tablet as needed for Pain. Maximum 12 tablets/24 hours citalopram (AKA CELEXA) Take 40 mg by mouth 0 08/26/2021 40 MG tabletIndications: daily (every 24 Pain in joint, shoulder hours). region HYDROcodone-acetaminophe Take 1 tablet by 40 tablet 0 12/0101/04/2014 n (AKA NORCO) 5-325 MG mouth every 6 hours tablet as needed for Pain. documented as of this encounter Procedure Notes Mateus Piña MD - 12/19/2013 3:21 PM CDT Op Note signed by Mateus Piña MD at 12/19/13 1521 Author: Mateus Piña MD Service: (none) Author Type: Physician Filed: 12/19/13 153 Note Time: 12/19/131534 Status: Signed Retail Financial Analyst: Mateus Piña MD (Physician) [facility] Patient Name: Juan Ramon Granados Procedure Date: 12/19/2013 3:21 PM Date of : 1975 Age: 38 Gender: Male Attending MD: Mateus Piña Procedure: Right Shoulder Arthroscopic SLAP (Superior Labrum, Anterior to Posterior using 4 posterior and posterior superior 2.4 Arthrex anchors) Lesion Repair with Capsulorrhaphy Adjacent to SLAP Lesion and open subpectoral biceps tenodesis. Patient Profile: This is a 38 year old male. Refer to note in patient chart for documentation of history and physical. Previously obtained MRI showed superior labrum lesion, posterior labrum lesion and labrum tear. The patient has failed previous non-operative treatment. Due to the nature of the patient's increasing pain surgery is recommended. The alternatives, risks and benefits of surgery were discussed with the patient. The patient verbalized understanding of the risks as well as the alternatives to surgery. The patient wished to proceed with operative intervention. A signed and witnessed informed consent was placed on the chart. Prior to initiation of the procedure, a time-out was performed: patient identification and proposed procedure were verified by the surgeon in the pre-op area and the surgeon prior to surgery. The operative site was verified by the patient and initialed by the surgeon. Surgical Staff: Mateus Piña M.D., Lissy BUCKLEY Referring MD: Pre-OP Diagnosis: Labral SLAP lesion: type II (detached superior labrum anterior to posterior), Biceps tendon inflammation Post-OP Diagnosis: Labral SLAP lesion: type II (detached superior labrum anterior to posterior), Biceps tendon inflammation Comorbidities None Anesthesia: Anesthesia Administered: Regional - Scalene block - Local Anesthetic (see Anesthesia Notes). Moderate (conscious) sedation by anesthesiology. The following parameters were monitored: Heart Rate, Respiratory Rate, EKG, O2 Saturation, Blood Pressure, Pulmonary Ventilation, and Response to Care. Findings: Labrum: - Type II (detached) SLAP (superior labrum, anterior to posterior) lesion with detachment from 2 o'clock to 9 o'clock. Biceps - Inflammation The rest of the shoulder was normal. Description of Procedure: Patient Positioning: - Following induction of anesthesia, the patient was placed in the beach-chair position on the operating table. The patient was positioned with the aid of a beanbag. All body parts were well padded and protected to make sure there were no pressure points. Subsequently, the surgical area was prepped and draped in the appropriate sterile fashion with DuraPrep. Incision Type/Arthroscope Insertion: - A 30 degree arthroscope was introduced via the arthroscopic portal. The 4.0 synovial resector was introduced. Instruments and Methods Glenohumeral Joint: - The labrum was detached. The capsulo-ligamentous complex is normal. The rest of shoulder was found to be normal. - The biceps was tenotomized using a VAPR for later tenodesis. - Using the manual instruments and motorized shaver the labral reattachment site on the glenoid was freshened to a bleeding surface. - The capsulo-ligamentous complex was identified and probed. It was stable. - The labral defect was reattached, anchored and sutured to the apex of the glenoid using the Arthrex Biosuture Tac system, with 4 anchors. We then turned to the open part of the procedure. The interval between the pec and biceps was opened with 2 inch skin incision carried to the fascia. The biceps was removed from the wound and a #2 fiberwire was passed 2.5 cm from the muscle tendon junction. The biceps groove was exposed and a beathe pin introduced. We used an acorn drill 6.5 mm and made our hole. We secured the tendon using a 6.25 mm biocomposit Arthrex Swivelock screw. The repair was oversewed using the safety stitches. We then washed and closed in layers. Wound Closure: - The arthroscopic portal sites were closed with 3-0 Vicryl using interrupted technique. Pathology Specimen: - No specimen was sent to pathology. Drains / Dressing: - A sterile dressing was applied including dry dressing. - Drains: None. Sponge / Instrument / Needle Counts: - Final counts were correct. Intraoperative Inputs and Outputs: - No transfusions; minimal blood loss. Intraoperative Medications: - Cefazolin (Ancef, Kefzol) 1 g IV prior to incision. Patient to Recovery Room: - The patient tolerated the procedure well and was brought to the recovery room in stable condition. Complications: No Immediate Complications. Post-OP Plan: DISCHARGE ORDERS: - Medications: - Oxycodone / acetaminophen (Percocet 5/325) - 1 to 2 tabs PO q 6 hr PRN (max 12 tabs / day) for 2 weeks. - Morphine sulfate (MS Contin) 15 mg PO q 12 hr PRN for 10 days. - Disposition: - Discharge patient to home upon release from Post-Op Recovery. - Activity: - Patient may return to work in 2 weeks. - Patient may not operate a motorized vehicle while taking sedating medications. - Wound Care / Drains: - Apply intermittent ice packs to the wound site for 2 days. - May shower in 2 days. - Remove dressing in 2 days. - Redress wound in 2 days with band-aids. - Devices: - Immobilize arm in a sling for 4 weeks. Out of sling for PT, to get dressed, to shower and to do table top activity. Otherwise in sling. - Therapy: - Physical Therapy per Protocol. - Follow-up: - Appointment to Orthopaedics Clinic in 2 weeks. Procedure Code(s): --- Professional --- 42693, RT, Arthroscopy, shoulder, surgical; repair of SLAP lesion 10999, Tenodesis of long tendon of biceps Diagnosis Code(s): --- Professional --- 840.7, Superior glenoid labrum lesion 726.12, Bicipital tenosynovitis CPT (R) 2012 [place] [employer]. All Rights Reserved. The codes documented in this report are preliminary and upon braille coder review may be revised to meet current compliance requirements. Mateus Piña, 12/19/2013 3:35 PM This document has been electronically signed. Number of Addenda: 0 Note Initiated On: 12/19/2013 3:21 PM Procedure Date: 12/19/2013 3:21:59 PM documented in this encounter Miscellaneous Notes Medication History - Santos Nam MD - 12/19/2013 4:40 PM CDT INPATIENT MEDS Encounter Date: 12/07/13 fentaNYL (SUBLIMAZE) injection 25-50 mcg Start Date:12/19/13, End Date:-, Frequency:EVERY 5 MIN PRN *No Administrations Recorded ondansetron (ZOFRAN) injection 4 mg Start Date:12/19/13, End Date:12/19/13, Frequency:EVERY 4 HOURS PRN *No Administrations Recorded prochlorperazine (COMPAZINE) injection 5 mg Start Date:12/19/13, End Date:12/19/13, Frequency:PRN *No Administrations Recorded diphenhydrAMINE (BENADRYL) injection 25 mg Start Date:12/19/13, End Date:12/19/13, Frequency:ONCE PRN *No Administrations Recorded fentaNYL (SUBLIMAZE) injection 25-50 mcg Start Date:12/19/13, End Date:12/19/13, Frequency:EVERY 5 MIN PRN *No Administrations Recorded HYDROmorphone (DILAUDID) injection 0.2-0.4 mg Start Date:12/19/13, End Date:12/19/13, Frequency:EVERY 10 MIN PRN *No Administrations Recorded meperidine (DEMEROL) injection 12.5 mg Start Date:12/19/13, End Date:12/19/13, Frequency:EVERY 5 MIN PRN *No Administrations Recorded nalOXone (NARCAN) injection 0.08 mg Start Date:12/19/13, End Date:12/19/13, Frequency:PRN *No Administrations Recorded ePHEDrine injection 5-10 mg Start Date:12/19/13, End Date:12/19/13, Frequency:EVERY 5 MIN PRN *No Administrations Recorded midazolam (VERSED) 1 mg/mL injection 1-2 mg Start Date:12/19/13, End Date:-, Frequency:EVERY 5 MIN PRN *No Administrations Recorded IP AVS Snapshot - Santos Nam MD - 12/19/2013 4:40 PM CDT [facility] [address] [place] [address] Surgical Summary 12/19/2013 Admission Juan Ramon Granados MRN: : [id number] Admission Information Department Dept Phone Hosp. Acct. # 12/19/2013 10:12 AM [facility] Surgery [place] [phone] Admitting Provider Information Provider Pager Service Admission Date Mateus Piña MD Ambulatory Surgery 12/19/2013 Actual LOS 0 days General Information Allergies Penicillins Rash Discharge Procedures (720h ago through future) None Current Immunizations Never Reviewed No immunizations on file. Current Discharge Medication List UNREVIEWED medications Medication Last Dose Given;Last Dose Given: citalopram (CELEXA) 40 mg tablet Last Dose Given: Associated Diagnoses: Pain in joint, shoulder region HYDROcodone-acetaminophen (NORCO) 5-325 mg per tablet Last Dose Given: Quantity: 40 tablet Refills: 0 morphine (MS CONTIN) 15 mg 12 hr tablet Last Dose Given: Quantity: 20 tablet Refills: 0 Start date: 12/19/2013 End date: 12/29/2013 oxyCODONE-acetaminophen (PERCOCET) 5-325 mg per tablet Last Dose Given: Quantity: 40 tablet Refills: 0 Start date: 12/19/2013 Managing your medication list is very important. Update your medication information when your medications are discontinued, doses are changed, or new medications (including lwhf-edx-ocnkqia products) are added. You are also encouraged to carry medication information at all times in the event of emerge ncy situations. Nurse initals that this was reviewed with the patient. Future Appointments Provider Department Dept Phone 01/04/2014 10:00 AM Mitch Boone [facility] [phone] Patient Belongings Most Recent Value Patient Belongings Clothing Plastic Bag Plastic Bag Sent Safe Patient Instructions None Appointments for Next 60 Days 01/04/2014 10:00 AM POST-OP [facility] [[id number]] 30 min Please arrive 15 minutes prior to your appointment. It is important to bring a list of all of your medications and over the counter supplements, your insurance card, copay and photo ID. Please bring any relevant medical records and films to your visit. If you are unable to keep your appointment, please provide us with a 24 hour notice of cancellation. From the East: Take [address] to the [facility] exit. Turn left on [address] and proceed to [address] [place] [address] [address] Turn left at the stoplight on [address] Turn left on [address] and follow it to the [facility] parking ramp. From the West: Take [address] to the [facility] exit. Turn right on [address] and proceed to [address] [address] Turn left at the stoplight on [address] Turn left on [address] and follow it to the [facility] parking ramp. ` Nurse Signature: Date: ` Patient Signature: Date: documented in this encounter Plan of Treatment Not on filedocumented as of this encounter Visit Diagnoses Not on filedocumented in this encounter Care Teams Mold Cutting Machine Operator Relationship Specialty Start Date End Date Aydin Morales MD PCP - General 08/29/13 100[address] [facility] [address] [place] [address] documented as of this encounter
--- OUTSIDE RECORDS SUMMARY | 2021-11-25 03:47 | XMS_ITS | Encounter Summary ---
:1975 [facility] Address [address] [place] [address] Care Team Providers Name Role Phone Aydin Morales MD Primary Care Provider Reason for Visit Reason Comments Refill Encounter Details Date Type Department Care Team Description 11/16/2013 Refill [facility] Urge nt Care Erich Kirkland MD Refill [address] [facility] [address] [place] [address] [place] [address] [place] [address] [phone] (Wo rk) Social History Tobacco Use Types [...] refill of hispain meds. He lives in [place] and prefers not to come in to picker box operator a prescription, he would likea prescription for [place]. Last prescription for [place] was on 11/07. Will pend to Dr. Kirkland for approval. documented in this encounter Plan of Treatment Not on filedocumented as of this encounter Visit Diagnoses Not on filedocumented in this encounter Care Teams Installation & Maintenance Executive Relationship Specialty Start Date End Date Aydin Morales MD PCP - General 08/29/[address] [facility] 100 [place] [address] documented as of this encounter
--- OUTSIDE RECORDS SUMMARY | 2021-11-25 03:47 | XMS_ITS | Encounter Summary ---
:1975 [facility] Address [address] [place] [address] Care Team Providers Name Role Phone Aydin Morales MD Primary Care Provider Reason for Visit Reason Comments SHOULDER PAIN Encounter Details Date Type Department Care Team Description 10/04/2013 Office Visit [facility] Erich Kirkland MD Pain in joint, CENTER [address] [place] [address] shoulder region [address] [place], [place] [address] [phone] (Wo rk) Social History Tobacco Use Types Packs/Day Years Used Date Smoking Tobacco: Never Assessed Sex Assigned at Date Recorded Not on file documented as of this encounter Patient Instructions Patient InstructionsKMagdy nguyen OA - 10/04/2013 12:[address] Erich Kirkland MD Orthopaedic Surgeon C Python Developer: Patricia Matson Please contact Patricia for all administrative questions at [phone] Please contact Nurse Nicole for all medical related questions at [phone] Medication Requests: Prescriptions are not filled on Weekends or on Weekdays after 3:00PM For all medication refills: Request a refill using MyChart or contact your Pharmacy F/U as discussed documented in this encounter Progress Notes Erich Kirkland MD - 10/05/2013 3:13 PM CDT Progress Notes signed by Erich Kirkland MD at 10/10/13 130 Author: Erich Kirkland MD Service: (none) Author Type: Physician Filed: 10/10/13 1306 Note Time: 10/10/13809 Status: Signed Manufacturing Automation Engineer: Erich Kirkland MD (Physician) NAME: JUAN RAMON GRANADOS MR#: [id number] CSN: [id number] AUTHENTICATING CLINICIAN: Erich Kirkland MD CONFIRM #: 2008 LOC: 711 CLINIC PROGRESS NOTE DATE OF VISIT: 10/04/2013 : 1975 Juan Ramon is seen in followup for his shoulder. He had his intraarticular glenohumeral joint injection.It was quite helpful in relieving his pain for the better part of a month. During that time he started exercising and was improving. Unfortunately, as the time following the steroid injection has length ened the positive effect has been wearing off. He is having increasing pain and with that difficultyagain maintaining his exercise program and function. EXAM: On exam of his right shoulder he is tender along the long head of the biceps. He has a negative impingement sign. He has pain with provocation of his labrum. Cuff strength remains intact to resistance testing. ASSESSMENT: Overall, I think the patient's response to the intraarticular steroid confirms the clinical suspicion for microinstability and labral problems with long head of the biceps tenosynovitis. I told him I have discussed this situation with Dr. Thomas. I think that ultimately arthroscopy withlabral debridement versus repair and a long head of the biceps tenodesis would be appropriate treatment. The patient would like to proceed. We scheduled with Dr. Thomas for his preoperative evaluation. AWM:MARIYA C: R:10/05/13 17:45 CONFIRM#:[id number] documented in this encounter Plan of Treatment Not on filedocumented as of this encounter Visit Diagnoses Diagnosis Pain in joint, shoulder region documented in this encounter Care Teams College Advisor Relationship Specialty Start Date End Date Carmen, Aydin G, MD PCP - General 08/29/13 1001 [facility] [address] [place] [address] documented as of this encounter
--- OUTSIDE RECORDS SUMMARY | 2021-11-25 03:47 | XMS_ITS | Encounter Summary ---
:1975 [facility] Address [address] [place] [address] Care Team Providers Name Role Phone Aydin Morales MD Primary Care Provider Reason for Visit Procedure/Equipment (Routine) - Incomplete Specialty Diagnoses / Procedures Referred By Contact Refer red To Contact Procedures Isaac Peña MD [facility] Arthroscopy [address] [place] [address] 1 Referral ID Status Reason Start Date Expiration Date Visits V isits Requested Authorized [id number] Incomplete 12/09/2020 03/10/2022 1 1 Encounter Details Date Type Department Care Team Description 12/10/2020 Ancillary Procedure [facility] Amb[facility] Isaac Peña MD Surgery Center [address] [place] [address] [address] [place], [place] [address] [phone] (Wo rk) Social History Tobacco Use Types [...] on filedocumented in this encounter Care Teams Lead Cashier Relationship Specialty Start Date End Date Aydin Morales MD PCP - General 08/29/13 1001 [facility] 100 [place] [address] documented as of this encounter
--- OUTSIDE RECORDS SUMMARY | 2021-11-25 03:47 | XMS_ITS | Encounter Summary ---
:1975 Author Organization [facility] [employer] Address [address], [place] [address] Care Team Providers Name Role Phone Aydin Morales MD Primary Care Provider Reason for Visit Reason Comments Refill Encounter Details Date Type Department Care Team Description 12/28/2013 Refill [facility] Mateus Villa MD Refill [address] [facility] [address] [facility] [place], [place] [address] 1 [place] [address] [phone] (Wo rk) Social History Tobacco Use Types Packs/Day Years Used Date Smoking Tobacco: Never Assessed Sex Assigned at Date Recorded Not on file documented as of this encounter Nursing Notes Bri Mari - 12/29/2013 4:04 PM CDT Rx left at front end driver for cigar packer and picker. Pt. notified. Bri Mari - 12/29/2013 2:20 PM CDT Pt. called again to inquire about Percocet refill as he has to travel from [place]. Eden Gunter RN - 12/28/2013 8:49 AM [...] on filedocumented in this encounter Care Teams Dairy Husbandry Teacher Relationship Specialty Start Date End Date Aydin Morales MD PCP - General 08/29/13 1001 [facility] 100 [place] [address] documented as of this encounter
--- OUTSIDE RECORDS SUMMARY | 2021-11-25 03:47 | XMS_ITS | Encounter Summary ---
:1975 Author Organization [facility] Address [address] [place] [address] Care Team Providers Name Role Phone Aydin Morales MD Primary Care Provider Reason for Visit Reason Onset Date Comments Refill 12/12/2020 Encounter Details Date Type Department Care Team Description 12/12/2020 Refill [facility] Isaac Bentley MD Refill [address] [facility] [address] [facility] [address] [place] [address] [place] [address] [phone] (Wo rk) Social History Tobacco Use Types [...] status documented in this encounter Care Teams Human Projectile Relationship Specialty Start Date End Date Aydin Morales MD PCP - General 08/29/13 1001 [facility] 100 [place] [address] documented as of this encounter
--- OUTSIDE RECORDS SUMMARY | 2021-11-25 03:47 | XMS_ITS | Encounter Summary ---
:1975 Author Organization [facility] Address [address], [place] [address] Care Team Providers Name Role Phone Aydin Morales MD Primary Care Provider Reason for Visit Reason Comments Refill Encounter Details Date Type Department Care Team Description 12/20/2013 Refill [facility] Mateus Villa MD Refill [address] [facility] [address] [place] [address] [address] [place] [address] [place] [address] [phone] (Wo rk) Social History Tobacco Use Types [...] on filedocumented in this encounter Care Teams Park Naturalist Relationship Specialty Start Date End Date Aydin Morales MD PCP - General 08/29/13 100[address] [facility] [address] [place] [address] documented as of this encounter
--- OUTSIDE RECORDS SUMMARY | 2021-11-25 03:47 | XMS_ITS | Encounter Summary ---
:1975 Author Organization [facility] Address [address] [place] [address] Care Team Providers Name Role Phone Aydin Morales MD Primary Care Provider Reason for Referral Procedure/Equipment (Routine) - Closed Specialty Diagnoses / Procedures Referred By Contact Refer red To Contact Diagnoses Effusion of right knee Sourav Ramirez MD Procedures MR Knee Rt WO IV Cont [address] [facility] [address] [place], [place] [address] Referral ID Status Reason Start Date Expiration Date Visits Requ ested Visits Authorized [id number] Closed 08/13/2021 11/12/2022 1 1 Procedure/Equipment (Routine) - Incomplete Specialty Diagnoses / Procedures Referred By Contact Refer red To Contact Diagnoses Acute pain of right knee Effusion of right knee Sourav Ramirez MD Procedures XR Knee Lt 1-2 Views Comparison [address] [facility] [address] [place] [address] Referral ID Status Reason Start Date Expiration Date Visits V isits Requested Authorized [id number] Incomplete 08/13/2021 11/12/2022 1 1 Procedure/Equipment (Routine) - Incomplete Specialty Diagnoses / Procedures Referred By Contact Refer red To Contact Diagnoses Acute pain of right knee Effusion of right knee Sourav Ramirez MD Procedures XR Knee Rt 3 Views [address] [facility] [place] [address] 1 Referral ID Status Reason Start Date Expiration Date Visits V isits Requested Authorized [id number] Incomplete 08/13/2021 11/12/2022 1 1 Reason for Visit Reason Comments SWELLING, KNEE Right Encounter Details Date Type Department Care Team Description 08/13/2021 Office Visit [facility] Sourav Ramirez Acute p ain of right knee (Primary Dx); Urgent Care MD Amberly Effusion of right knee [address] [facility] [facility] [address] [facility] [place] [address] [place] [phone] (Wo rk) Social History Tobacco Use Types [...] Dr. Xochilt Ramirez MD Orthopedic Urgent Care, [place] [facility] Nurse Line: [phone] Please contact Orthopedic Urgent Care line for all requests and questions. Medication Requests: Prescriptions are not filled on Weekends or on Weekdays after 3:00PM For all medication refills: Request a refill using VisConProt or contact your Pharmacy To schedule appointments: [phone] Paperwork Requests: FMLA or disability paperwork can be faxed to: [phone] Medical records: [phone] (option 4) STEVE Worker's Compensation Services E-mail Address: [email or web address] Schedule MRI Follow up here in [facility] [...] Other pain medications have acetaminophen in the (Orland, Fiorcet, Percocet). documented in this encounter Progress [...] Sourav Ramirez MD Sports & Orthopedic Medicine [facility] Orthopedic Urgent Care documented in this encounter [...] MR KNEE RT WO IV CONT LOCATION: [facility] DATE/TIME: 08/18/2021 12:10 PM INDICATION: Knee trauma, [...] is intact. -Pes anserine tendons are normal. Vp Business Development omedial corner complex ligaments are intact. POSTEROLATERAL [...] MR KNEE RT WO IV CONT LOCATION: [facility] DATE/TIME: 08/18/2021 12:10 PM INDICATION: Knee trauma, [...] is intact. -Pes anserine tendons are normal. Vp Business Development omedial corner complex ligaments are intact. POSTEROLATERAL [...] joint documented in this encounter Care Teams Draw Bench Operator Relationship Specialty Start Date End Date Aydin Morales MD PCP - General 08/29/13 1001 [facility] 100 [place] [address] documented as of this encounter
--- OUTSIDE RECORDS SUMMARY | 2021-11-25 03:47 | XMS_ITS | Encounter Summary ---
:1975 Author [facility] Address [address], [place] [address] Care Team Providers Name Role Phone Aydin Morales MD Primary Care Provider Encounter Details Date Type Department Care Team Description 12/10/2020 Orders Only Initial Department Provider, Jessica, [facility] DEMETRIA GARRETT MD [place], [place] [address] Interface provider [phone] [place] [address] Social History Tobacco Use Types Packs/Day Years [...] on filedocumented in this encounter Care Teams Photovoltaic Technician Relationship Specialty Start Date End Date Aydin Morales MD PCP - General 08/29/13 1001 [facility] [place] [address] [place] [address] documented as of this encounter
--- OUTSIDE RECORDS SUMMARY | 2021-11-25 03:47 | XMS_ITS | Encounter Summary ---
:1975 Author Organization [facility] Address [address], [place] [address] Care Team Providers Name Role Phone Aydin Morales MD Primary Care Provider Encounter Details Date Type Department Care Team Description 12/10/2020 Notes/Orders [facility] MYLA Isaac Bentley MD 8[address] [facility] [address] [place] [address] [place], [place] [address] [place] [address] [phone] (Wo rk) Social History Tobacco Use Types [...] on filedocumented in this encounter Care Teams Filter Tip Catcher Relationship Specialty Start Date End Date Aydin Morales MD PCP - General 08/29/13 1001 [facility] 100 [place], [place] [address] documented as of this encounter
--- OUTSIDE RECORDS SUMMARY | 2021-11-25 03:47 | XMS_ITS | Encounter Summary ---
:1975 Author [facility] Address [address] [place] [address] Care Team Providers Name Role Phone Aydin Morales MD Primary Care Provider Reason for Referral Procedure/Equipment (Routine) - Incomplete Specialty Diagnoses / Procedures Referred By Contact Refer red To Contact Procedures Isaac Peña MD [facility] Arthroscopy Knee Rt [address] [place] [place] [address] 1 Referral ID Status Reason Start Date Expiration Date Visits V isits Requested Authorized [id number] Incomplete 12/09/2020 03/10/2022 1 1 Encounter Details Date Type Department Care Team Description 12/09/2020 Notes/Orders [facility] Barbi Vega 8100 [place], [place] [address] Social History Tobacco Use Types Packs/Day Years Used Date Smoking Tobacco: Former Cigarettes Quit : 08/09/2013 Smokeless Tobacco: Never Alcohol Use Standard Drinks/Week Comments Yes 2 (1 standard drink = 0.6 oz pure alcoho l) Sex Assigned at Date Recorded Not on file documented as of this encounter Plan of Treatment Not on filedocumented as of this encounter Results [facility] Arthroscopy Knee Rt (12/10/2020 12:22 PM CDT) Anatomical Region Laterality Modality Lower Extremity, Knee Endoscopy Specimen (Source) Anatomical Location Collection Method / Collectio n Time Received Time / Laterality Volume Isaac Peña MD RAD NON-REPORTABLES documented in this encounter Visit Diagnoses Not on filedocumented in this encounter Care Teams Apartment Community Assistant Manager Relationship Specialty Start Date End Date Aydin Morales MD PCP - General 08/29/13 1001 [facility] 100 [place] [address] documented as of this encounter
--- OUTSIDE RECORDS SUMMARY | 2021-11-25 03:47 | XMS_ITS | Encounter Summary ---
:1975 Author Organization [facility] Address [address] [place] [address] Care Team Providers Name Role Phone Aydin Morales MD Primary Care Provider Reason for Referral Procedure/Equipment (Routine) - Closed Specialty Diagnoses / Procedures Referred By Contact Refer red To Contact Diagnoses Chronic pain of right knee Isaac Peña MD Procedures MR Knee Rt WO IV Cont [address] [facility] [address] [place] [address] Referral ID Status Reason Start Date Expiration Date Visits Requ ested Visits Authorized [id number] Closed 09/19/2020 12/19/2021 1 1 Procedure/Equipment (Routine) - Incomplete Specialty Diagnoses / Procedures Referred By Contact Refer red To Contact Diagnoses Chronic pain of right knee Isaac Peña MD Procedures XR Knee Lt 1-2 Views Comparison [address] [facility] [address] [place] [address] Referral ID Status Reason Start Date Expiration Date Visits V isits Requested Authorized [id number] Incomplete 09/19/2020 12/19/2021 1 1 Procedure/Equipment (Routine) - Incomplete Specialty Diagnoses / Procedures Referred By Contact Refer red To Contact Diagnoses Chronic pain of right knee Isaac Peña MD Procedures XR Knee Rt 3 Views [address] [facility] [place] [address] 1 Referral ID Status Reason Start Date Expiration Date Visits V isits Requested Authorized [id number] Incomplete 09/19/2020 12/19/2021 1 1 Reason for Visit Reason Comments Knee Problem right knee Encounter Details Date Type Department Care Team Description 09/19/2020 Office Visit [facility] Isaac Peña MD Chronic pain of right knee (Primary Dx); CENTER [address] [place] [address] History of arthroscopy of right knee [facility] [facility] [place] [address] [phone] (Wo rk) Social History Tobacco Use Types [...] 09/19/2020 11:00 AM CDT Juan Ramon Granados [id number] 1975 [facility] Orthopaedic Surgery Consultation 09/19/2020 Chief Complaint: [...] Current Medications: Lexapro Reviewed and updated in [facility] Past Medical History/Past Surgical History: Anxiety Right knee arthroscopy (2016, ABBY Keys) Arthroscopy, right shoulder (12/19/2013) Social History: Patient works at [employer] in [employer], employed for 25 years. Denies illicit drug use or tobacco products, and he drinks alcohol occasionally. Exercises weekly. Enjoys intramural softball. . Lives with and son. Always wears seatbelt. Review of Systems: A 15-point review of systems obtained and is significant for anxiety and as mentioned above. Family History: [place] The General Medical History Form dated 09/19/2020 was reviewed with the patient, updated, and signed;this is located in [place] in [facility]. This will act as supplement to this [...] knee documented in this encounter Care Teams Pathology Laboratory Director Relationship Specialty Start Date End Date Aydin Morales MD PCP - General 08/29/13 1001 [facility] [place] [address] [place] [address] documented as of this encounter
--- OUTSIDE RECORDS SUMMARY | 2021-11-25 03:47 | XMS_ITS | Encounter Summary ---
:1975 Author Organization [facility] Address [address] [place] [address] Care Team Providers Name Role Phone Aydin Morales MD Primary Care Provider Encounter Details Date Type Department Care Team Description 12/10/2020 Hospital Encounter [facility] Isaac Peña, Knee pain, right SVCS 8[address] [facility] Kashif gross 8[address] [facility] [place], [place] [address] [place], [place] [phone] Social History Tobacco Use Types Packs/Day Years [...] 12/10/2020 : 1975 SURGEON: Isaac Peña MD OPHTHALMIC ASST: Manpreet Dixon MD (Orthopaedic Sports Medicine Fellow) Dede Mccall PA-C There was no resident available to assist with this case. A skilled medical assistant float was required for positioning, prepping and draping, [...] Component Value Ref Test Analysis Performed At [facility] Method Time Signature Case Report Surgical Pathology ?Case: [id number] ? 12/11/2020 [facility] Authorizing Provider: ??Isaac Morrow MD ? Collected: ? 12/10/2020 1415 ? 10:06 AM CRIS MACHUCA Ordering Location: ? [facility] ?Received: ?12/10/2020 1437 ? CDT Pathologist: ? Jules Maldonado MD ? Specimen: ?Knee, right, right knee synovium ? FINAL Synovium, right knee, biopsies: 12/12/19 21 [facility] Electronically DIAGNOSIS Fragments of synovium with c hronic inflammation and degenerating cartilage. 10:06 AM LABORATORY signed by YVONNE Maldonado MD on 12/11/2020 at 10:05 AM Clinical Knee pain, right 12/11/2020 [facility] Information 10:06 AM LABORATORY CDT Microscopic Microscopic 12/11/2020 [facility] Description examination is 10:06 AM LABORATORY performed. CDT Gross A: 12/11/2020 [facility] Description The specimen is received in formalin and labeled with the patient's name and Knee, right, right knee synovium . The specimen consists of 1.5 x 1.1 x 0.3 cm of mottled hurtado-red rubbery tissue fragments. 10:06 AM LABORATORY The specimen is filtered and entirely submitted 1 cassette. DV CDT Embedded 12/11/2020 [facility] Images 10:06 AM LABORATORY CDT Specimen Anatomical Collection Method Collection Time Receive d Time (Source) Location / / Volume Laterality Tissue ENTIRE KNEE REGION 12/10/2020 2:15 PM 07/2020 2:37 / Unknown CDT PM CDT Isaac Peña MD LAB PATHOLOGY Performing Organization Address City/State/ZIP Code Phon e Number [facility] [address] [place] [address] documented in this encounter Visit Diagnoses Diagnosis [...] nausea or vomiting - administer in the [facility] lowing priority based on medications ordered, effectiveness and availability: o ndansetron (ZOFRAN) > prochlorPERAZINE (COMPAZINE) > diphenhydrAMINE (BENADR YL) > hydrOXYzine HCl (VISTARIL)> ePHEDrine > scopolamine (TRANSDERM-SCOP)., PACU/Recovery fentaNYL (SUBLIMAZE) injection 25-50 mcg Given 12/10/2020 3:10 PM CDT 50 mcg 25-50 mcg, Intravenous, [id number], Other, Moderate to Severe Pain (pain score [...] (DEMEROL) injection 12.5 mg 12.5 mg, Intravenous, [id number], Shiverin g, Starting on Wed12/10/20 at 1230, Until Wed12/10/20 at 1817, For 2 doses, Maximu m cumulative dose is 25 mg. Do not give to patients receiving MAO inhibitors (e.g. phenelzine (NA RDIL), tranylcypromine (PARNATE), selegiline (ELDEPRYL))., PACU/Recovery midazolam (VERSED) injection 0.5-1 mg 0.5-1 mg, Intravenous, [id number], Anxiety , Starting on Wed12/10/20 at 1230, [...] ETED) 1333 (Started - Provider: Kristy Penn, DIET THERAPIST, WIRE DRAWING MACHINE TENDER) 2 g, Intravenous, Administer over 30 Min [...] Provider: Yasmine Yeung RN) 25-50 mcg, Intravenous, [id number], Other, Moderate to Severe Pain (pain score [...] (DEMEROL) injection 12.5 mg 12.5 mg, Intravenous, [id number], Shiverin g, Starting on Wed12/10/20 at 1230, Until Wed12/10/20 at 1818, For 2 doses, Maximum cumulative dose is 25 mg. Do not give to patients receiving MAO inhibitors (e. g. phenelzine (NARDIL), tranylcypromine (PARNATE), selegiline (ELDEPRYL))., PACU/Recovery midazolam (VERSED) injection 0.5-1 mg 0.5-1 mg, Intravenous, [id number], Anxiety , Starting on Wed12/10/20 at 1230, [...] Intra-op documented in this encounter Care Teams School Bus Technician Relationship Specialty Start Date End Date Aydin Morales MD PCP - General 08/29/[address] [facility] 100 [place] [address] documented as of this encounter
--- OUTSIDE RECORDS SUMMARY | 2021-11-25 03:47 | XMS_ITS | Encounter Summary ---
:1975 Author Organization [facility] Address [address] [place] [address] Care Team Providers Name Role Phone Aydin Morales MD Primary Care Provider Reason for Visit Procedure/Equipment (Routine) - Closed Specialty Diagnoses / Procedures Referred By Contact Refer red To Contact Diagnoses Chronic pain of right knee Isaac Peña MD Procedures MR Knee Rt WO IV Cont 8100 [place], [place] [address] Referral ID Status Reason Start Date Expiration Date Visits Requ ested Visits Authorized [id number] Closed 09/19/2020 12/19/2021 1 1 Encounter Details Date Type Department Care Team Description 10/08/2020 Ancillary [facility] Rad[facility] MRI Isaac Peña MD Chronic pain of Procedure 8100 [facility] [address] [place] [address] [place] [address] [phone] Social History Tobacco Use Types Packs/Day Years [...] knee documented in this encounter Care Teams Barrel Straightener Relationship Specialty Start Date End Date Aydin Morales MD PCP - General 08/29/13 1001 [facility] 100 [place] [address] documented as of this encounter
--- OUTSIDE RECORDS SUMMARY | 2021-11-25 03:47 | XMS_ITS | Encounter Summary ---
:1975 Author Organization [email or web address] Address [address] [place] [address] Care Team Providers Name Role Phone Aydin Morales MD Primary Care Provider Reason for Visit Reason Comments SHOULDER PAIN Encounter Details Date Type Department Care Team Description 12/06/2013 Surgical Consult [facility] Mateus Piña SL AP lesion of [place] shoulder (Primary [address] [facility] Dx) [place] [address] [phone] Social History Tobacco Use Types Packs/Day Years Used Date Smoking Tobacco: Never Assessed Sex Assigned at Date Recorded Not on file documented as of this encounter Patient Instructions Patient InstructionsCamMitch cerda - 12/06/2013 10:[address] Mateus Piña MD Orthopaedic Surgeon: Shoulder & Elbow Clinical Engineer: Shima Perez Please contact Shima for all administrative questions at [phone] Passport Support Manager: Mitch Boone Please contact Mitch for all medical questions at [phone] Medication Requests: Prescriptions are not filled on Weekends or on Weekdays after 3:00PM For all medication refills: Request a refill using MyChart or contact your Pharmacy scheduled for surgery documented in this encounter Progress Notes Mateus Piña MD - 12/06/2013 10:23 AM CDT Progress Notes signed by Mateus Piña MD at 12/11/13 1916 Author: Mateus Piña MD Service: (none) Author Type: Physician Filed: 12/11/13 7170 Note Time: 12/08/13 1450 Status: Signed Paper Bags Sewing Machine Operator: Mateus Piña MD (Physician) NAME: ANASTASIYA GRANADOS MR#: [id number] CSN: [id number] AUTHENTICATING CLINICIAN: Mateus Piña MD CONFIRM #: [id number] LOC: 711 CLINIC PROGRESS NOTE DATE OF VISIT: 12/06/2013 : 1975 CHIEF COMPLAINT: Pain and SLAP tear of the right shoulder. HISTORY OF PRESENT ILLNESS: Anastasiya is a 38-year-old gentleman here for evaluation. At the end of August he had two injuries to hisshoulder while playing softball, one hard throw he felt a pop and the other one he landed while diving for a ball and heard another pop and this could have caused the injury, either one of them could have caused the injury. He saw Dr. Kirkland who did a corticosteroid injection intraarticular. He had relief for 2 weeks. Clinical exam demonstrated some SLAP-type symptoms and he had an MRI [facility] area without contrast which revealed a SLAP tear and no other pathology. The report is available but not the images. 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 Hobbies include golf, softball, running. He has not tried any therapy on a formal basis. ALLERGIES: PENICILLIN. MEDICATIONS: Celexa and Chelsea. PREVIOUS SURGERIES: None. CURRENT MEDICAL CONDITIONS: None. Nonsmoker. Occasional alcohol drinker. 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 Always wears a seat belt. REVIEW OF SYSTEMS: Complete review of systems is negative for cardiac, respiratory, GI, or problems. FAMILY HEALTH HISTORY: Positive for diabetes in the father. PHYSICAL EXAMINATION: Alert and oriented gentleman in no acute distress. Cranial nerves 2-12 grossly intact. Skin exam over the affected shoulder no atrophy, erythema, drainage, cellulitic, or dermatologic conditions. Constitutionally well-nourished, appropriate affect, a little heavyset for stated height. Range of motion of the shoulder is 160 forward elevation on the right, to 180 if I press it; it is just very hard to do this and painful at the superior aspect of his shoulder. External rotation 45. Internal rotation T12. Strength exam 5/5 throughout. He has a positive Crank's test. Positive Denton's test. Positive Speed's test and Yergason's test today. Palpation of the bicipital groove is bothersome to him as well. RADIOGRAPHS: MRI report is available but no images. MRI demonstrates a SLAP tear posterior/superior but no significant extension into the biceps anchor and no anterior extension. IMPRESSION: SLAP tear of the right shoulder. PLAN: I talked to the patient about different options, surgical and nonsurgical. The patient wished to proceed forward with surgical intervention after a lengthy discussion of the risks and benefits. He had ample time to ask questions and have them answered. He will follow up and send the actual images to our attention so we can review them prior to going back to the operating room. He will get physical therapy in the [place] area, he was given a script and protocol today. Shima Perez, my medical legal investigator, contacted him for surgical scheduling. He will seek his primary care doctor for preoperative evaluation. No further instructions. Total time with the patient today is 30 minutes, total consultation time is 20 minutes. MRW:GAGAN C: R:12/06/13 10:24 CONFIRM#:[id number] documented in this encounter Plan of Treatment Not on filedocumented as of this encounter Visit Diagnoses Diagnosis SLAP lesion of shoulder - Primary Superior glenoid labrum lesion documented in this encounter Care Teams Manager Rehab Relationship Specialty Start Date End Date Aydin Morales MD PCP - General 08/29/13 1001 [facility] 100 [place] [address] documented as of this encounter
--- OUTSIDE RECORDS SUMMARY | 2021-11-25 03:47 | XMS_ITS | Encounter Summary ---
:1975 Author [facility] Address [address] [place] [address] Care Team Providers Name Role Phone Aydin oMrales MD Primary Care Provider Reason for Visit Reason Comments Refill Encounter Details Date Type Department Care Team Description 12/01/2013 Refill [facility] MYLA TER Erich Kirkland MD Refill [address] [facility] [address] [place] [address] [place] [address] [place] [address] [phone] (Wo rk) Social History Tobacco Use Types Packs/Day Years Used Date Smoking Tobacco: Never Assessed Sex Assigned at Date Recorded Not on file documented as of this encounter Nursing Notes Isabel Sanchez RN - 12/01/2013 1:44 PM CDT called to the pharmacy and left message on voicemail for the refill of Valrico. Bri Mari - 12/01/2013 10:30 AM CDT [...] by pharmacy fax for the following medication: Valrico, #40 last dispensed on 11/17. documented in this encounter Plan of Treatment Not on filedocumented as of this encounter Visit Diagnoses Not on filedocumented in this encounter Care Teams Hand Tube Bender Relationship Specialty Start Date End Date Aydin Morales MD PCP - General 08/29/13 1001 [facility] 100 [place] [address] documented as of this encounter
--- OUTSIDE RECORDS SUMMARY | 2021-11-25 03:47 | XMS_ITS | Encounter Summary ---
:1975 Author Organization [facility] Address [address] [address] Care Team Providers Name Role Phone Aydin Morales MD Primary Care Provider Reason for Visit Reason Comments Refill Encounter Details Date Type Department Care Team Description 10/23/2013 Refill [facility] MYLA Erich Garrison MD Refill [address] [facility] [address] [place] [address] [place] [address] 1 [place] [address] [phone] (Wo rk) Social History Tobacco Use Types Packs/Day Years Used Date Smoking Tobacco: Never Assessed Sex Assigned at Date Recorded Not on file documented as of this encounter Nursing Notes Laurie Mercer - 10/24/2013 2:[address] Kirkland approves script for Arabi. Patient's preferred pharmacy, [facility] in [place], [place]. Script called into pharmacy. Patient contacted and notified. Issue resolved. documented in this encounter Plan of Treatment Not on filedocumented as of this encounter Visit Diagnoses Not on filedocumented in this encounter Care Teams Workday Financials Consultant Relationship Specialty Start Date End Date Aydin Morales MD PCP - General 08/29/13 1001 [facility] [address] [place] [address] documented as of this encounter
--- OUTSIDE RECORDS SUMMARY | 2021-11-25 03:47 | XMS_ITS | Encounter Summary ---
:1975 Author Organization [facility] Address [address] [place] [address] Care Team Providers Name Role Phone Aydin Morales MD Primary Care Provider Reason for Visit Reason Comments Refill Encounter Details Date Type Department Care Team Description 01/29/2014 Refill [facility] TER Mateus Piña MD Refill [address] [place], [place] [address] 1 [place] [address] [phone] (Wo rk) Social History Tobacco Use Types Packs/Day Years Used Date Smoking Tobacco: Never Assessed Sex Assigned at Date Recorded Not on file documented as of this encounter Nursing Notes Renee Stevens RN - 01/29/2014 2:06 PM CST Refill approved per provider and script placed at Deputy Commonwealth'S Attorney desk. Pt notified of refill approval andalso message from provider that this would be the last refill for him. Pt verbalized understanding. ENT BLOCK LAYER Renee Stevens RN - 01/29/2014 11:24 AM CST Pt called to request a [place] refill; his last refill was 12/23/13 for 40#. Pt is S/P Right Shoulder Arthroscopic SLAP; DOS was 12/19/13. Please approve or advise. ENT BLOCK LAYER documented in this encounter Plan of Treatment Not on filedocumented as of this encounter Visit Diagnoses Not on filedocumented in this encounter Care Teams Lab Support Service Tech Relationship Specialty Start Date End Date Aydin Morales MD PCP - General 08/29/13 1001 [facility] 100 [place] [address] documented as of this encounter
--- OUTSIDE RECORDS SUMMARY | 2021-11-25 03:47 | XMS_ITS | Encounter Summary ---
:1975 Author [facility] Address [address], [place] [address] Care Team Providers Name Role Phone Aydin Morales MD Primary Care Provider Reason for Visit Reason Comments Refill Encounter Details Date Type Department Care Team Description 01/04/2014 Refill [facility] Mateus Villa MD Refill [address] [facility] [address] [facility] [place] [address] 1 [place] [address] [phone] (Wo rk) Social History Tobacco Use Types Packs/Day Years Used Date Smoking Tobacco: Never Assessed Sex Assigned at Date Recorded Not on file documented as of this encounter Plan of Treatment Not on filedocumented as of this encounter Visit Diagnoses Not on filedocumented in this encounter Care Teams Behaviorist Relationship Specialty Start Date End Date Aydin Morales MD PCP - General 08/29/[address] [place] [address] 100 [place], [place] [address] documented as of this encounter
--- OUTSIDE RECORDS SUMMARY | 2021-11-25 03:47 | XMS_ITS | Encounter Summary ---
:1975 Author Organization [facility] Address [address] [place] [address] Care Team Providers Name Role Phone Aydin Morales MD Primary Care Provider Encounter Details Date Type Department Care Team Description 09/01/2013 Imaging [facility] Pain in joint, shoulder 8100 [place], [place] [address] Social History Tobacco Use Types [...] without change after injection. Erich Kirkland MD [facility] documented in this encounter Visit Diagnoses Diagnosis Pain in joint, shoulder region documented in this encounter Care Teams Marine Gear Keeper Relationship Specialty Start Date End Date Aydin Morales MD PCP - General 08/29/13 1001 [facility] 100 [place] [address] documented as of this encounter
--- OUTSIDE RECORDS SUMMARY | 2021-11-25 03:47 | XMS_ITS | Encounter Summary ---
:1975 Author Organization [facility] Address [address] [place] [address] Care Team Providers Name Role Phone Aydin Morales MD Primary Care Provider Reason for Visit Reason Comments SHOULDER PAIN Encounter Details Date Type Department Care Team Description 08/30/2013 Surgical Consult [facility] Erich Kirkland Pai n in joint, CENTER shoulder region [address] [place] [address] [place] [address] (Primary Dx) [place] [address] [phone] Social History Tobacco Use Types Packs/Day Years [...] CDT Dr. Erich Kirkland MD Orthopaedic Surgeon Critical Power Technician: Patricia Matson Please contact Patricia for all administrative questions at [phone] Please contact Nurse Line for all medical related questions at [phone] Medication Requests: Prescriptions are not filled on [...] Filed: 09/12/131716 Note Time: 09/12/13739 Status: Signed Skills Instructor: Erich Kirkland MD (Physician) NAME: ANASTASIYA GRANADOS MR#: [id number] CSN: [id number] AUTHENTICATING CLINICIAN: Erich Kirkland MD CONFIRM #: [...] magnetic resonance imaging, which was accomplished at [facility] through [facility] in [place]. His scan was from 08/23/2013. The MR [...] painful. He has the most significant painwith Mccracken's type testing. Any type of labral provocation [...] Primary documented in this encounter Care Teams Mortgage Loan Processor Relationship Specialty Start Date End Date Aydin Morales MD PCP - General 08/29/13 1001 [facility] 100 [place] [address] documented as of this encounter
--- OUTSIDE RECORDS SUMMARY | 2021-11-25 03:47 | XMS_ITS | Encounter Summary ---
:1975 Author Organization [facility] Address [address], [place] [address] Care Team Providers Name Role Phone Aydin Morales MD Primary Care Provider Encounter Details Date Type Department Care Team Description 12/10/2020 Surgery [facility] Isaac Peña MD RIGHT knee 8100 [facility] [address] [facility] [address] arthroscopic partial [place], [place] [address] [place], [place] medial meniscectomy, [address] loose body removal, (Wo rk) partial synovectomy, [...] 12/10/2020 : 1975 SURGEON: Isaac Peña MD VP COMMUNICATIONS: Manpreet Dixon MD (Orthopaedic Sports Medicine Fellow) Dede Mccall PA-C There was no resident available to assist with this case. A skilled blood bank assistant was required for positioning, prepping and [...] Component Value Ref Test Analysis Performed At [facility] Method Time Signature Case Report Surgical Pathology ?Case: [id number] ? 12/11/2020 [facility] Authorizing Provider: ??Isaac Morrow MD ? Collected: ? 12/10/2020 1415 ? 10:06 AM LABO RATORY Ordering Location: ? [facility] ?Received: ?12/10/2020 1437 ? CDT Pathologist: ? Jules Maldonado MD ? Specimen: ?Knee, right, right knee synovium ? FINAL Synovium, right knee, biopsies: 12/12/19 21 [facility] Electronically DIAGNOSIS Fragments of synovium with c hronic inflammation and degenerating cartilage. 10:06 AM LABORATORY signed by YVONNE Maldonado MD on 12/11/2020 at 10:05 AM Clinical Knee pain, right 12/11/2020 [facility] Information 10:06 AM LABORATORY CDT Microscopic Microscopic 12/11/2020 [facility] Description examination is 10:06 AM LABORATORY performed. CDT Gross A: 12/11/2020 [facility] Description The specimen is received in formalin and labeled with the patient's name and Knee, right, right knee synovium . The specimen consists of 1.5 x 1.1 x 0.3 cm of mottled hurtado-red rubbery tissue fragments. 10:06 AM LABORATORY The specimen is filtered and entirely submitted 1 cassette. DV CDT Embedded 12/11/2020 [facility] Images 10:06 AM LABORATORY CDT Specimen Anatomical Collection Method Collection Time Receive d Time (Source) Location / / Volume Laterality Tissue ENTIRE KNEE REGION 12/10/2020 2:15 PM 07/2020 2:37 / Unknown CDT PM CDT Isaac Peña MD LAB PATHOLOGY Performing Organization Address City/State/ZIP Code Phon e Number [facility] [address] [place] [address] documented in this encounter Visit Diagnoses Diagnosis [...] PM CDT 50 mcg 25-50 mcg, Intravenous, [id number], Other, Moderate to Severe Pain (pain score [...] (DEMEROL) injection 12.5 mg 12.5 mg, Intravenous, [id number], Shiverin g, Starting on Wed12/10/20 at 1230, Until Wed12/10/20 at 1817, For 2 doses, Maximu m cumulative dose is 25 mg. Do not give to patients receiving MAO inhibitors (e.g. phenelzine (NA RDIL), tranylcypromine (PARNATE), selegiline (ELDEPRYL))., PACU/Recovery midazolam (VERSED) injection 0.5-1 mg 0.5-1 mg, Intravenous, [id number], Anxiety , Starting on Wed12/10/20 at 1230, [...] 1333 (Started - Provider: Kristy Penn APRN, WEB SERVICES DEVELOPER) 2 g, Intravenous, Administer over 30 Min [...] Provider: Yasmine Yeung RN) 25-50 mcg, Intravenous, [id number], Other, Moderate to Severe Pain (pain score [...] (DEMEROL) injection 12.5 mg 12.5 mg, Intravenous, [id number], Shiverin g, Starting on Wed12/10/20 at 1230, Until Wed12/10/20 at 1818, For 2 doses, Maximum cumulative dose is 25 mg. Do not give to patients receiving MAO inhibitors (e. g. phenelzine (NARDIL), tranylcypromine (PARNATE), selegiline (ELDEPRYL))., PACU/Recovery midazolam (VERSED) injection 0.5-1 mg 0.5-1 mg, Intravenous, [id number], Anxiety , Starting on Wed12/10/20 at 1230, [...] Intra-op documented in this encounter Care Teams Corn Detasseler Relationship Specialty Start Date End Date Aydin Morales MD PCP - General 08/29/13 1001 [facility] 100 [place] [address] documented as of this encounter
--- OUTSIDE RECORDS SUMMARY | 2021-11-25 03:47 | XMS_ITS | Encounter Summary ---
:1975 Author Organization [facility] Address [address] [place] [address] Care Team Providers Name Role Phone Aydin Morales MD Primary Care Provider Reason for Visit Reason Comments QUESTIONS, GENERAL Encounter Details Date Type Department Care Team Description 10/14/2020 Telephone [facility] Isaac Bentley MD QUESTIONS, GENERAL [address] [place] [address] [place] [address] 1 [place] [address] [phone] (Wo rk) Social History Tobacco Use Types Packs/Day Years Used Date Smoking Tobacco: Former Cigarettes Quit : 08/09/2013 Smokeless Tobacco: Never Alcohol Use Standard Drinks/Week Comments Yes 2 (1 standard drink = 0.6 oz pure alcoho l) Sex Assigned at Date Recorded Not on file documented as of this encounter Nursing Notes Isela Byrd - 10/15/2020 10:18 AM CDT LM for pt that 10/28 is the first available for his appt. Provider is out of town the rest of the week. Clementina Goel RN - 10/14/2020 4:59 PM CDT Per chart review, it looks as though pt needs to follow up for MRI results from 10/08. Current apt on 10/28. Routing to AA to assist in sooner apt if available for MRI results. No medication can be prescribed at this time. Kalli Watkins - 10/14/2020 4:36 PM CDT Has the patient recently had surgery or an injury? No How may we help you today? Patient is requesting a work in appointment to see Dr. Peña sooner thanthe . Have you been seen for this recently?: 09.19.20 Dr. Peña [[facility]: If yes, please include date and provider.] Is it okay to leave detailed message on your voicemail? Yes [[facility]: If this call is after 3 p.m., communicate to patient: If we are not able to get back to you by the end of the day and your symptoms worsen please contact the Careline] Ortho Pain Questionnaire Any recent falls/injuries/changes since you were last seen? YES Pain Rating (0-10) 8 Location of Pain right knee Description N/A Onset of Pain Chronic What have you tried for the pain? changing positions, ice, movement, stretching and Tylenol Using assistive device? None Comments Patient played softball yesterday and denies any trauma. He thinks the increased activity worsened the condition of his knee. He would like to speak with someone regarding pain management because he's in a lot of pain and nothing is working. documented in this encounter Plan of Treatment Not on filedocumented as of this encounter Visit Diagnoses Not on filedocumented in this encounter Care Teams Silversmith Apprentice Relationship Specialty Start Date End Date Aydin Morales MD PCP - General 08/29/13 1001 [facility] 100 [place] [address] documented as of this encounter
--- OUTSIDE RECORDS SUMMARY | 2021-11-25 03:47 | XMS_ITS | Encounter Summary ---
:1975 Author Organization [facility] Address [address] [address] Care Team Providers Name Role Phone Aydin Morales MD Primary Care Provider Reason for Visit Reason Comments Refill Encounter Details Date Type Department Care Team Description 01/15/2014 Refill [facility] Mateus Villa MD Refill [address] [facility] [address] [place] [address] [place] [address] 1 [place] [address] [phone] (Wo rk) Social History Tobacco Use Types Packs/Day Years Used Date Smoking Tobacco: Never Assessed Sex Assigned at Date Recorded Not on file documented as of this encounter Nursing Notes Isabel Sanchez RN - 01/18/2014 9:55 AM CST per sales and service representative patient did shredder picker scripts. EL OPERATOR Eden Gunter RN - 01/16/2014 10:44 AM CST Received call from patient , checking to see if RXS are available for shredder picker. Will call later. EL OPERATOR Andrea Randolph RN - 01/15/2014 4:31 PM CST Patient is s/p Right Shoulder Arthroscopic SLAP Lesion Repair with Capsulorrhaphy Adjacent to SLAP Lesion and open subpectoral biceps tenodesis on 12/19. Calling to request refill on pain medicine, last received Percocet #40 on 01/04/14. He does feel ready to step down to the [place] as he is only taking 4 pills a day. Does request two scripts, one post-dated as he lives in [place]. EL OPERATOR documented in this encounter Plan of Treatment Not on filedocumented as of this encounter Visit Diagnoses Not on filedocumented in this encounter Care Teams Correctional Program Officer Relationship Specialty Start Date End Date Aydin Morales MD PCP - General 08/29/13 1001 [facility] 100 [place] [address] documented as of this encounter
--- OUTSIDE RECORDS SUMMARY | 2021-11-25 03:47 | XMS_ITS | Encounter Summary ---
:1975 Author Organization [place] [employer] Address [address] [address] Care Team Providers Name Role Phone Aydin Morales MD Primary Care Provider Encounter Details Date Type Department Care Team Description 12/18/2013 Notes/Orders [facility] Mateus Piña, Seth y, elective CENTER (Primary Dx) [address] [facility] [address] [place] [address] [address] [place] [address] 1 [place], [place] [phone] (Wo rk) Social History Tobacco Use Types Packs/Day Years Used Date Smoking Tobacco: Never Assessed Sex Assigned at Date Recorded Not on file documented as of this encounter Plan of Treatment Not on filedocumented as of this encounter Visit Diagnoses Diagnosis Surgery, elective - Primary Unspecified elective surgery for purpose s other than remedying health states documented in this encounter Care Teams Torch Straightener Relationship Specialty Start Date End Date Aydin Morales MD PCP - General 08/29/13 1001 [facility] 100 [place] [address] documented as of this encounter
--- OUTSIDE RECORDS SUMMARY | 2021-11-25 03:47 | XMS_ITS | Encounter Summary ---
:1975 Author Organization [facility] Address [address] [place] [address] Care Team Providers Name Role Phone Aydin Morales MD Primary Care Provider Reason for Visit Reason Comments SHOULDER PAIN Encounter Details Date Type Department Care Team Description 01/04/2014 Office Visit [facility] Wes Boone is A SLAP lesion of [address] shoulder (Primary Dx) 00 [place], [place] [address] [phone] Social History Tobacco Use Types Packs/Day Years Used Date Smoking Tobacco: Never Assessed Sex Assigned at Date Recorded Not on file documented as of this encounter Progress Notes Mitch Boone A - 01/12/2014 1:09 PM CST [facility] Surgeon: Mateus Piña Date of surgery: 12/19/13 Days Post-op: 16 Surgery: 1) right Arthroscopic SLAP (Superior Labrum, Anterior to Posterior using 4 posterior and posterior superior 2.4 Arthrex anchors) Lesion Repair with Capsulorrhaphy Adjacent to SLAP Lesion and open subpectoral biceps tenodesis. Subjective: Pain is controlled with current analgesics. Medication(s) being used: narcotic analgesics including PERCOCET. The patient denies fever, wound drainage, increasing redness, pus, increasing pain, increasing swelling. Post op problems reported: none. Objective: General : alert, cooperative, no distress, appears stated age Skin Closure: Sutures in place and will be removed today. Incision: healing well, no significant drainage, no dehiscence, no significant erythema Tenderness: mild Wound Care: cleansed with alcohol x2, covered with bandaids Neurologic Exam: WNL Vascular Exam: WNL ROM: Not tested Strength: Not tested Assistive Devise: sling x4 wks s/p-op Assessment: Status post right shoulder arthroscopy, doing well postoperatively. Plan: At this point I reinforced that pt must continue with use of sling until 4weeks s/p-op. The patient understands the labrum will take a total of 3 months to completely heal. The physical therapy referral was submitted. Pt will attend PT 2 x per week for the first 6 weeks and 1 x per week for weeks 6 through 12. Pt was not provided with standard RTW form as he declined. Able to work if off narcotics. Table top activities only until 6 weeks s/p-op. Follow up with me will be in 4 weeks time at which point we will be approximately 6 weeks from surgery when we will check ROM and strength. Pt was provided with a refill of PERCOCET per Dr. Ayana TREJO. S OPERATIONS MANAGER documented in this encounter Plan of Treatment Not on filedocumented as of this encounter Visit Diagnoses Diagnosis SLAP lesion of shoulder - Primary Superior glenoid labrum lesion documented in this encounter Care Teams Director Talent Acquisition Relationship Specialty Start Date End Date Aydin Morales MD PCP - General 08/29/13 1001 [facility] 100 [place] [address] documented as of this encounter
--- OUTSIDE RECORDS SUMMARY | 2021-11-25 03:47 | XMS_ITS | Encounter Summary ---
:1975 Author Organization [facility] Address [address], [place] [address] Care Team Providers Name Role Phone Aydin Morales MD Primary Care Provider Encounter Details Date Type Department Care Team Description 12/07/2013 Orders Only [facility] Mateus Villa MD [address] [facility] [address] [place] [address] [address] [place] [address] 1 [place] [address] [phone] (Wo rk) Social History Tobacco Use Types Packs/Day Years Used Date Smoking Tobacco: Never Assessed Sex Assigned at Date Recorded Not on file documented as of this encounter Plan of Treatment Not on filedocumented as of this encounter Visit Diagnoses Not on filedocumented in this encounter Care Teams Greenhouse Or Nursery Transplanter Relationship Specialty Start Date End Date Aydin Morales MD PCP - General 08/29/13 1001 [facility] 100 [place] [address] documented as of this encounter
--- OUTSIDE RECORDS SUMMARY | 2021-11-25 03:47 | XMS_ITS | Encounter Summary ---
:1975 Author Organization [employer] [facility] Address [address] [place] [address] Care Team Providers Name Role Phone Aydin Morales MD Primary Care Provider Reason for Visit Reason Comments Post-Op Follow Up right knee scope Encounter Details Date Type Department Care Team Description 12/19/2020 Office Visit [facility] Dede Wray, S/[facility] knee [facility]ENTER [facility] arthroscopy (Primary [address] [facility] [address] [facility] [address] Dx) [place], [place] [address] [place], [place] [phone] (Wo rk) Social History Tobacco Use Types Packs/Day Years Used Date Smoking Tobacco: Former Cigarettes Quit : 08/09/2013 Smokeless Tobacco: Never Alcohol Use Standard Drinks/Week Comments Yes 2 (1 standard drink = 0.6 oz pure alcoho l) Sex Assigned at Date Recorded Not on file documented as of this encounter Progress Notes Dede Mccall PA-C - 12/19/2020 1:00 PM CDT HISTORY OF PRESENT ILLNESS: Juan Ramon Granados is a 45 y.o. male who returns 9 days status post right knee arthroscopic revision partial medial meniscectomy, removal of loose body, trochlear chondroplasty, and partial synovectomy with synovial biopsy. Surgery was performed by Dr. Peña on 12/10/20. He currently rates his pain as a 5/10 in severity. He has been taking ibuprofen twice per day and using active ice with relief. Physical therapy is scheduled to start next week at [facility] in [place]. 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 PHYSICAL EXAM: The patient is alert, oriented, and in no apparent distress. He ambulates with a slightly antalgic gait, without the use of a brace or any other assisted device. Examination of the right knee reveals amild-moderate effusion and resolving ecchymosis on the lateral thigh. No erythema. Incisions are well approximated and are clean, dry, and intact. There is no sign of infection. Calf is soft and non-tender to palpation. Range of motion is about 3-90 degrees and he is otherwise neurovascularly intact distally. IMPRESSION: Status post arthroscopic revision partial medial meniscectomy, removal of loose body, trochlear chondroplasty, and partial synovectomy with synovial biopsy, right knee (DOS:12/10/20) PLAN: We had a nice discussion of his current symptoms and expected recovery. We also reviewed his pathology results. Sutures removed and steri-strips applied. He is instructed to begin physical therapy as scheduled, continue as long as it is beneficial and transition to a home exercise program. We discussed how he can progressively increase activities as tolerated. He was asked to return to clinic in 7 weeks' time for a routine 2 month postop check with Dr. Peña. All questions were answered today and he is invited to call with any additional questions. documented in this encounter Plan of Treatment Not on filedocumented as of this encounter Visit Diagnoses Diagnosis S/P right knee arthroscopy - Primary Other postprocedural status documented in this encounter Care Teams Java Solutions Architect Relationship Specialty Start Date End Date Aydin Morales MD PCP - General 08/29/13 1001 [facility] 100 [place] [address] documented as of this encounter
--- OUTSIDE RECORDS SUMMARY | 2021-11-25 03:47 | XMS_ITS | Encounter Summary ---
:1975 Author [facility] Address [address], [place] [address] Care Team Providers Name Role Phone Aydin Morales MD Primary Care Provider Encounter Details Date Type Department Care Team Description 12/19/2013 Office Visit [facility] Surgery, elective [address] [place], [place] [address] Social History Tobacco Use Types Packs/Day Years Used Date Smoking Tobacco: Never Assessed Sex Assigned at Date Recorded Not on file documented as of this encounter Plan of Treatment Not on filedocumented as of this encounter Procedures Procedure Name Priority Date/Time Associated Diagnosis Comme nts IDANIA ARTHROSCOPY SHOULDER Routine 12/19/2013 10:20 AM Surgery, elective RT CDT documented in this encounter Results IDANIA Arthroscopy Shoulder Rt (12/19/2013 10:20 AM CDT) Anatomical Region Laterality Modality Upper Extremity, Shoulder Other Specimen (Source) Anatomical Location Collection Method / Collectio n Time Received Time / Laterality Volume Mateus Piña MD RAD NON-REPORTABLES documented in this encounter Visit Diagnoses Diagnosis Surgery, elective Unspecified elective surgery for purpose s other than remedying health states documented in this encounter Care Teams Wire Transfer Clerk Relationship Specialty Start Date End Date Aydin Morales MD PCP - General 08/29/13 1001 [facility] 100 [place] [address] documented as of this encounter
--- OUTSIDE RECORDS SUMMARY | 2021-11-25 03:47 | XMS_ITS | Encounter Summary ---
:1975 Author Organization [facility] Address [address] [place] [address] Care Team Providers Name Role Phone Aydin Morales MD Primary Care Provider Reason for Visit Procedure/Equipment (Routine) - Incomplete Specialty Diagnoses / Procedures Referred By Contact Refer red To Contact Diagnoses Chronic pain of right knee Isaac Peña MD Procedures XR Knee Lt 1-2 Views Comparison [address] [place] [address]43 1 Referral ID Status Reason Start Date Expiration Date Visits V isits Requested Authorized [id number] Incomplete 09/19/2020 12/19/2021 1 1 Encounter Details Date Type Department Care Team Description 09/19/2020 Ancillary [facility] Isaac Peña MD Chronic pain of Procedure [address] [place] [address] [place] [address] [phone] Social History Tobacco Use Types Packs/Day Years [...] knee documented in this encounter Care Teams Comfort Station Supervisor Relationship Specialty Start Date End Date Aydin Morales MD PCP - General 08/29/13 1001 [facility] 100 [place] [address] documented as of this encounter
--- OUTSIDE RECORDS SUMMARY | 2021-11-25 03:47 | XMS_ITS | Encounter Summary ---
:1975 Author Organization [facility] Address [address] [place] [address] Care Team Providers Name Role Phone Aydin Morales MD Primary Care Provider Reason for Visit Reason Comments Refill Encounter Details Date Type Department Care Team Description 09/29/2013 Refill [facility] Erich Garrison MD Refill [address] [place] [address] Dr [place] 5543 1 [place] [address] [phone] (Wo rk) Social History Tobacco Use Types [...] by pharmacy fax for the following medication: Rand, #40 last dispensed on 08/30. documented in this encounter Plan of Treatment Not on filedocumented as of this encounter Visit Diagnoses Diagnosis Pain in joint, shoulder region documented in this encounter Care Teams Absorption Operator Relationship Specialty Start Date End Date Aydin Morales MD PCP - General 08/29/13 1001 [facility] 100 [place] [address] documented as of this encounter
--- OUTSIDE RECORDS SUMMARY | 2021-11-25 03:47 | XMS_ITS | Encounter Summary ---
:1975 Author Organization [facility] Address [address], [place] [address] Care Team Providers Name Role Phone Aydin Morales MD Primary Care Provider Encounter Details Date Type Department Care Team Description 12/19/2013 Notes/Orders [facility] Mateus Villa MD [address] [facility] [address] [place] [address] Dr [place] [address] 1 [place] [address] [phone] (Wo rk) Social History Tobacco Use Types Packs/Day Years Used Date Smoking Tobacco: Never Assessed Sex Assigned at Date Recorded Not on file documented as of this encounter Plan of Treatment Not on filedocumented as of this encounter Visit Diagnoses Not on filedocumented in this encounter Care Teams Pigment Pusher Relationship Specialty Start Date End Date Aydin Morales MD PCP - General 08/29/13 1001 [facility] 100 [place], [place] [address] documented as of this encounter
--- OUTSIDE RECORDS SUMMARY | 2021-11-25 03:47 | XMS_ITS | Encounter Summary ---
:1975 Author Organization [facility] Address [address] [place] [address] Care Team Providers Name Role Phone Aydin Morales MD Primary Care Provider Reason for Visit Reason Comments SHOULDER PAIN Encounter Details Date Type Department Care Team Description 11/07/2013 Surgical Consult [facility] Erich Kirkland Pai n in joint, CENTER MD shoulder region [address] [place] [address] (Primary Dx) [place] [address] [phone] Social History Tobacco Use Types Packs/Day Years Used Date Smoking Tobacco: Never Assessed Sex Assigned at Date Recorded Not on file documented as of this encounter Progress Notes Erich Kirkland MD - 11/07/2013 12:27 PM CDT Progress Notes signed by Erich Kirkland MD at 02/13/14 [id number] Author: Erich Kirkland MD Service: (none) Author Type: Physician Filed: 02/13/14 2112 Note Time: 11/13/13 105 Status: Signed Education Sales Consultant: Erich Kirkland MD (Physician) NAME: ANASTASIYA GRANADOS MR#: [id number] CSN: [id number] AUTHENTICATING CLINICIAN: Erich Kirkland MD CONFIRM #: [...] his pain medication. He has been taking Clatonia without much relief. He has had some [...] clinic visit. AWM:RONNIE C: R:11/07/13 13:00 CONFIRM#:[id number] BILITATION THERAPY TECHNICIAN documented in this encounter Plan of Treatment Not on filedocumented as of this encounter Visit Diagnoses Diagnosis Pain in joint, shoulder region - Primary documented in this encounter Care Teams Lead Manufacturing Technician Relationship Specialty Start Date End Date Aydin Morales MD PCP - General 08/29/13 1001 [facility] 100 [place] [address] documented as of this encounter
--- OUTSIDE RECORDS SUMMARY | 2021-11-25 03:47 | XMS_ITS | Encounter Summary ---
:1975 Author Organization [email or web address] Address [address], [place] [address] Care Team Providers Name Role Phone Aydin Morales MD Primary Care Provider Reason for Visit Reason Comments Refill Encounter Details Date Type Department Care Team Description 12/22/2013 Refill [facility] Mateus Villa MD Refill [address] [facility] [address] [place] [address] Dr [place] [address]43 1 [place] [address] [phone] (Wo rk) Social History Tobacco Use Types Packs/Day Years Used Date Smoking Tobacco: Never Assessed Sex Assigned at Date Recorded Not on file documented as of this encounter Nursing Notes Bri Mari - 12/22/2013 11:25 AM CDT Rx left at medical front desk specialist for knot picker cloth. Pt. notified. Bri Mari - 12/22/2013 9:40 [...] on filedocumented in this encounter Care Teams Sales And In Home Delivery Specialist Relationship Specialty Start Date End Date Aydin Morales MD PCP - General 08/29/13 1001 [facility] 100 [address] documented as of this encounter
[2021-11-25] MEDS: HYDROCODONE-ACETAMIN 5-325 MG 1 TAB 2 TAB PO (03:48)
[2021-11-25] MEDS: MAG HYDROX/ALUMINUM HYD/SIMETH 30 ML ORAL.SUSP 15 ML PO (03:49)
[2021-11-25 04:03] VITALS: BP 128/72; PULSE 72; RESP 16; O2SAT 95
== END 2021-11-25 04:12 | disposition home or self-care (01) ==
LOC: ED 03:43
PROVIDERS: Emergency Provider Family Medicine
DX: K29.20 Alcoholic gastritis without bleeding (principal)
CPT/HCPCS: 99282; 99283; A9270

== ENCOUNTER 2021-12-08 22:37 | Emergency (ER) | payer OTHER, SELFPAY ==
[2021-12-08 22:45] VITALS: BP 158/104; PULSE 74; RESP 18; TEMP 36.6; O2SAT 99; BMI 29.4
--- NOTE | 2021-12-08 23:21 | ED_ITS ---
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 Pt does not quantify the amount of alcohol he drank but states that his pain is worsening and it is not controllable at home. No fever or chills. No vomiting. Pain is severe and does radiate through to his back. No change in his bowels but he has not had much to eat. Related Data Home Medications Medication Instructions Recorded Confirmed fluoxetine 40 mg capsule mg 10/15/21 hvebky-qethmytv-xjeceru cap PO 10/15/21 24,000-76,000-120,000 unit capsule,delayed rel (Creon) omeprazole 20 mg capsule,delayed mg 10/15/21 release Previous Rx's Medication Instructions Recorded hydrocodone 5 mg-acetaminophen 325 1 tab PO Q8H abdominal pain #14 10/15/21 mg tablet tabs hydrocodone 5 mg-acetaminophen 325 1 tab PO TID PRN pain #5 tabs 11/25/21 mg tablet Allergies Allergy/AdvReac Type Severity Reaction Status Date / Time Penicillins Allergy Unknown Verified 11/24/21 21:32 Review of Systems Status of ROS: Reports: 10 or more systems reviewed and unremarkable except as noted in History and below [facility] Medical History Depression GERD (gastroesophageal reflux disease) Pancreatitis Surgical History S/P right knee surgery Social History Smoking Status: Current some day smoker What tobacco products do you use: cigarettes Second hand tobacco smoke exposure: Yes How often do you have a drink containing alcohol: 2-3 times a week How many standard drinks containing alcohol do you have on a typical day: 1 or 2 How often do you have six or more drinks on one occasion: Less than monthly AUDIT-C Alcohol total score: 4 Non-prescribed substance use: denies use Exam Narrative: Exam Narrative: EXAM GENERAL: Patient appears uncomfortable. EYES: No scleral icterus. THYROID: no thyroid nodules or thyromegaly. LYMPH: No supraclavicular or cervical lymphadenopathy. SKIN: Visible skin seen during exam normal or with benign process only. EXT: No dependent lower extremity pedal edema. HEART: Regular rate and rhythm with no murmurs, rubs, or gallops. LUNGS: Clear to auscultation bilaterally with no crackles or wheezes. ABD: Mild tender diffusely to palpation with hypoactive bowel sounds. PSYCH: Good eye contact, speech is not pressured. Const: Vital Signs, click to edit/add: Vital Signs - 24 hr 12/08/21 22:45 12/08/21 23:37 12/08/21 23:39 Temperature 97.8 F Pulse Rate [Right Pulse Oximeter] 74 Respiratory Rate 18 Respiratory Rate [ Abdomen] 16 Blood Pressure [Ri ght Upper Arm] 158/104 H Pulse Oximetry 99 98 Oxygen Delivery Me thod Room Air Course Course Hospital Course: CMP, CBC, Amylase, Lipase, ETOH collected. NS 1 liter given as well as zofran 4 mg and 0.5 mg of IV Dilaudid Reevaluation(s) Reevaluation #1: Pt feeling better. Labs show hypokalemia which was treated orally. Amylase and Lipase are normal. Liver tests chronically elevated. Etoh 0.21 which pt finds surprising. Time: 00:18 Vital Signs Vital signs: Initial Vital Signs Temperature 97.8 F 12/08/21 22:45 Temperature Source Temporal Artery Scan 12/08/21 22:45 Pulse Rate 74 12/08/21 22:45 Respiratory Rate 18 12/08/21 22:45 Blood Pressure 158/104 H 12/08/21 22:45 Blood Pressure Mean 122 12/08/21 22:45 Blood Pressure Position Sitting 12/08/21 22:45 Pulse Oximetry 99 12/08/21 22:45 Oxygen Delivery Method 12/08/21 22:45 Vital Signs Temperature 97.8 F 12/08/21 22:45 Pulse Rate 74 12/08/21 22:45 Respiratory Rate 18 12/08/21 22:45 Blood Pressure 158/104 H 12/08/21 22:45 Pulse Oximetry 99 12/08/21 22:45 Oxygen Delivery Method 12/08/21 22:45 Temperature 97.8 F 12/08/21 22:45 Pulse Rate 74 12/08/21 22:45 Respiratory Rate 16 12/08/21 23:39 Blood Pressure 158/104 H 12/08/21 22:45 Pulse Oximetry 98 12/08/21 23:37 Oxygen Delivery Method 12/08/21 22:45 Medical Decision Making MDM Narrative Medical decision making narrative: Pt presents with abd pain after drinking alcohol. Pt has presented with similar symptoms previously. Labs stable. Pt encouraged to quit drinking alcohol. Pt treated with normal saline and 0.5 mg of Dilaudid as well as Zofran. Previous Erie refilled. Pt needs close outpt follow up. Differential Diagnosis Differential Diagnosis: Pancreatitis, Alcoholic Liver Disease, Cholecystitis, Colitis, Gastroenteri Lab Data Labs: Lab Results 12/08/21 12/08/21 Range/Units 23:30 23:30 WBC 5.27 (4.50-11.00) K/uL RBC 4.94 (4.30-5.90) m/uL Hgb 17.0 (13.5-17.5) gm/dL Hct 47.5 (37.0-53.0) % MCV 96 (80-100) fL MCH 34 (26-34) pg MCHC 36 (32-36) gm/dL RDW Coeff of Clint 13.4 (11.5-15.5) % Plt Count 231 (140-440) K/uL Neut % (Auto) 61.2 (42.0-72.0) % Lymph % (Auto) 27.5 (20-44) % [place] % (Auto) 6.6 (0.0-11.0) % Eos % (Auto) 3.4 (0.0-7.0) % Baso % (Auto) 1.3 (0.0-3.0) % Neut # (Auto) 3.22 (1.7-7.0) K/uL Lymph # (Auto) 1.45 (0.90-2.90) K/uL [place] # (Auto) 0.30 (0.00-0.90) K/UL Eos # (Auto) 0.18 (0.00-0.50) K/uL Baso # (Auto) 0.07 (0.00-0.30) K/uL Abs Immat Gran (auto) 0.00 (0.00-0.30) K/uL Sodium 139 (135-149) mmol/L Potassium 3.0 L (3.6-5.1) mmol/L Chloride 105 (96-114) mmol/L Carbon Dioxide 21 (20-32) mmol/L BUN 5 (5-24) mg/dL Creatinine 0.5 (0.5-1.5) mg/dL Estimated Creat Clear 190.61 Estimated GFR 127 ml/min Glucose 108 (60-115) mg/dL Calcium 8.7 (8.4-10.6) mg/dL Total Bilirubin 0.9 (0.1-1.5) mg/dL AST 295 H (12-35) U/L ALT 231 H (4-50) U/L Alkaline Phosphatase 174 H (40-150) U/L Total Protein 7.1 (6.0-8.3) g/dL Albumin 4.2 (3.3-5.0) g/dL Amylase 61 (18-89) U/L Lipase 47 (23-300) U/L Ethyl Alcohol 0.21 H (0.01-0.03) % Discharge Plan Discharge Clinical Impression: Acute on chronic alcoholic liver disease Condition: Stable Instructions: Alcoholic Hepatitis (ED) Additional Instructions: Erie as directed Activity Level: No Restrictions Discharge Diet: Regular Prescriptions: No Action hydrocodone-acetaminophen 5-325 mg tablet 1 tab PO TID PRN (Reason: pain) Qty: 5 0RF fluoxetine 40 mg capsule omeprazole 20 mg capsule,delayed release(DR/EC) Creon 24,000-76,000 -120,000 unit capsule,delayed release(DR/EC) PO hydrocodone-acetaminophen 5-325 mg tablet 1 tab PO Q8H Qty: 14 0RF Follow Up/Referrals: Provider,Not a Local [Primary Care Provider] - Stand Alone Forms: [employer] Info Instructions
[2021-12-08 23:30] VITALS: BP 134/91; PULSE 69; RESP 16; O2SAT 96
[2021-12-08] MEDS: HYDROmorphone 0.5 mg/0.5 ml inj IVP (23:34)
[2021-12-08] MEDS: 0.9 % SODIUM CHLORIDE 1000 ml 1,000 ML IV (23:34)
[2021-12-08] MEDS: ONDANSETRON 2 MG/ML inj 4 MG IVP (23:34)
--- OUTSIDE RECORDS SUMMARY | 2021-12-08 23:34 | XMS_ITS | Encounter Summary ---
:1975 Author Organization [facility] Address [address] [place] [address] Care Team Providers Name Role Phone Elsewhere, Pcp Primary Care Provider Unavailable Reason for Visit Reason Comments Vomiting Encounter Details Date Type Department Care Team Description 07/22/2021 - Emergency [facility] Alcohol Abuse With Withdrawa l Uncomplicated (HCC) (Primary Dx); 07/23/[address] Elevated Liver Function Test ABBY VALLECILLO [address]-1 [facility] [phone] Social History Tobacco Use Types Packs/Day Years Used Date Smoking Tobacco: Every Day Sex Assigned at Date Recorded Male 10/02/2021 1:59 PM CDT documented as of this encounter Plan of Treatment Not on filedocumented as of this encounter Visit Diagnoses Diagnosis Alcohol Abuse With Withdrawal Uncomplica yasmany (HCC) - Primary Elevated Liver Function Test documented in this encounter Care Teams Health Tech Relationship Specialty Start Date End Date Elsewhere, Pcp PCP - General Family Medicine 08/10/17 documented as of this encounter
--- OUTSIDE RECORDS SUMMARY | 2021-12-08 23:34 | XMS_ITS | Encounter Summary ---
:1975 Author Organization [facility] Address [address] [place] [address] Care Team Providers Name Role Phone Unavailable Primary Care Provider Unavailable Encounter Details Date Type Department Care Team Description 02/12/2014 Hospital Encounter HX [facility] Venkata Cavanaugh P.A.-C. [address] [place] [phone] (Wo rk) Social History Tobacco Use Types Packs/Day Years Used Date Smoking Tobacco: Never Assessed Sex Assigned at Date Recorded Male 10/02/2021 1:59 PM CDT documented as of this encounter Last Filed Vital Signs Vital Sign Reading Time Taken Comments Blood Pressure 130/84 02/12/2014 11:24 AM NATURAL GAS PLANT SUPERVISOR Pulse 88 02/12/2014 11:24 AM NATURAL GAS PLANT SUPERVISOR Temperature - - Respiratory Rate 16 02/12/2014 11:24 AM NATURAL GAS PLANT SUPERVISOR Oxygen Saturation - - Inhaled Oxygen Concentration - - Weight - - Height 180 cm (5' 10.87) 02/12/2014 11:24 AM NATURAL GAS PLANT SUPERVISOR Body Mass Index - - documented in this encounter Progress Notes Cyndie Cavanaugh P.A.-C. - 02/12/2014 11:03 AM CST [id number] CHIEF COMPLAINT/REASON FOR VISIT To establish care. [...] him that we will not prescribe this termite control technician for him. He is in agreement with [...] CAVANAUGH PA-C On: 02/14/2014 09:21 AM Source: [facility] [id number] Document Id: [id number] RAL GAS PLANT SUPERVISOR documented in this encounter Miscellaneous Notes Miscellaneous - Kusum Daigle - 08/21/2016 12:45 PM CDT Health Maintenance Reminder August 21, 2016 ANASTASIYA GRANADOS [address] [facility] [id number] Dear ANASTASIYA GRANADOS, We have developed a [...] visit with us more convenient. Please call [phone] to schedule services that are past due or that may shortly become due (thank you if you have already done so). We will follow up in three to six months should you have more services to schedule at that time. If you have already received any of the listed past due or upcoming services outside of [facility], please call [phone] to add them to your medical record. You may want to consider contacting your health insurance company to make sure these services are covered and find out if there will be any aoy-ad-llzuye expense. If you have any questions about the services listed above, or if you are no longer receiving care from [facility], please contact us at [phone]. Thank you for partnering to provide you with the best care possible. We encourage you to set up your Patient Online Services account [email or web address], where you can communicate in a convenient way with us, schedule appointments, receive lab results and more. To set up your account, you will need your [facility] Number, which is [id number]. Thank you for choosing us, Cyndie Cavanaugh P.A.-C. and the [facility], for your health care needs! Sincerely, KUSUM DAIGLE Electronic Signature Electronically Signed By: KUSUM DAIGLE LPN On: August 21, 2016 This document has images extracted. Source: [facility] POWERCHART Document Id: [id number] Electronically signed by [facility] Mysql Database Administrator [id number] at 09/09/2016 9:06 AM CDT Miscellaneous - Cyndie Cavanaugh P.A.-C. - 02/12/2014 12:40 PM CST Ambulatory Patient Summary [address] [id number] Visit Information Name: DEZ GRANADOSIN FER [facility] Number: [id number] Current Date: 02/12/2014 12:40:45 Physicians [...] Oral, once a day New Routed to [facility] [address] [facility] ABBY WATERMAN [id number] HYDROcodone-acetaminophen (Garrett 5 mg-325 mg oral tablet) 1 Tablet(s), [...] appointment detail needed. Your Goals/Additional instructions: Source: [facility] POWERCHART Document Id: [id number] RAL GAS PLANT SUPERVISOR Miscellaneous - Cyndie Cavanaugh P.A.-C. - 02/12/2014 12:40 PM CST Ambulatory Discharge Medication List [address] [place] ABBY Waterman [phone] Visit Information Name: ANASTASIYA GRANADOS [facility] Number: [id number] Visit Date: 02/12/2014 12:40:44 Attending [...] Oral, once a day New Routed to [place] [address] [place], [place] [id number] HYDROcodone-acetaminophen (Garrett 5 mg-325 mg oral tablet) 1 Tablet(s), [...] PA-C Signed On:12-FEB-2014 12:40:40 Additional Information: Source: [facility] POWERCHART Document Id: [id number] RAL GAS PLANT SUPERVISOR Miscellaneous - Elizabeth Martin L.P.N. 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 Intake/History Entered On: 02/12/2014 11:27 NATURAL GAS PLANT SUPERVISOR Performed On: 02/12/2014 11:24 NATURAL GAS PLANT SUPERVISOR by ELIZABETH MARTIN Intake Chief Complaint : [...] 71 inch(es)) ELIZABETH MARTIN - 02/12/2014 11:24 NATURAL GAS PLANT SUPERVISOR General Info Information Given By : Patient Languages : Micronesian Is Patient Female and 13-50 no hysterectomy : No ELIZABETH MARTIN - 02/12/2014 11:24 NATURAL GAS PLANT SUPERVISOR Subjective Pain Symptoms : Yes ELIZABETH MARTIN - 02/12/2014 11:24 NATURAL GAS PLANT SUPERVISOR Pain Pain Assessment Grid Pain 1 Location : Shoulder (Comment: R shoulder pain [ELIZABTEH MARTIN 02/12/2014 11:24 NATURAL GAS PLANT SUPERVISOR] ) ELIZABETH MARTIN 02/12/2014 11:24 NATURAL GAS PLANT SUPERVISOR Dependent Habits Tobacco Use/Currently Using : Yes Exposure to Tobacco Smoke : Patient smokes Smoking Status : Current every day smoker ELIZABETH MARTIN 02/12/2014 11:24 NATURAL GAS PLANT SUPERVISOR Tobacco Use Grid Cigarette Use Packs/Day : 2 ELIZABETH MARTIN - 02/12/2014 11:24 NATURAL GAS PLANT SUPERVISOR ID Screen Travel Within Last 21 Days : No ELIZABETH MATRIN 02/12/2014 11:24 NATURAL GAS PLANT SUPERVISOR Source: [facility] POWERCHART Document Id: [id number] NATURAL GAS PLANT SUPERVISOR!31 RAL GAS PLANT SUPERVISOR documented in this encounter Plan of Treatment Not on filedocumented as of this encounter Visit Diagnoses Not on filedocumented in this encounter
--- OUTSIDE RECORDS SUMMARY | 2021-12-08 23:34 | XMS_ITS | Clinical Summary ---
:1975 Author Organization [facility] [place] [address] Care Team Providers Name Role Phone Melisa [...] Name Administration Dates Next Due COVID-19 vaccine (BeeFirst.in-J&J) PF, 06/08/2020 MDV COVID-19 vaccine ([employer] 03/05/2021 30mcg/0.3mL) PF, MDV HepA-HepB (Twinrix) 06/25/2014 [...] Hepatitis C screening for age [birth year]709[birth year]20/1993 18-79 COVID-19 vaccine series (3 - 04/30/2021 03/05/2021, 021 Booster for Shelbie series) Depression screening for age 12+ 06/21/2021 06/21/2020, [...] Additional history exists Tdap Completed 08/20/2012, 03/22/2009 Procedures Procedure Name Priority Date/Time Associated Comments [...] of2 resultswithin the time period is included. [facility] Method Time Signature WHITE BLOOD 5.7 4.5 - 11.0 11/15/2021 [facility] COUNT thou/cu mm 6:59 AM [facility] LABORATORY RED BLOOD COUNT 5.02 4.30 - 11/15/2021 [place] 5.90 6:59 AM [facility] CENTER mil/cu mm LABORATORY HEMOGLOBIN 17.1 13.5 - 11/15/2021 [facility] 17.5 g/dL 6:59 AM [facility] LABORATORY HEMATOCRIT 48.9 37.0 - 11/15/2021 [facility] 53.0 % 6:59 AM [facility] LABOR[facility]ORY MCV 97 80 - 100 11/15/2021 [facility] fL 6:59 AM [facility] LABORATORY MCH 34.1 (H) 26.0 - 11/15/2021 [facility] 34.0 pg 6:59 AM [facility] LABORATORY MCHC 35.0 32.0 - 11/15/2021 [facility] 36.0 g/dL 6:59 AM [facility] LABORATORY RDW 14.7 11.5 - 11/15/2021 [facility] 15.5 % 6:59 AM [facility] LABORATORY PLATELET COUNT 196 140 - 440 11/15/2021 [facility] thou/cu mm 6:59 AM [facility] LABORATORY MPV 10.7 6.5 - 11.0 [facility] 6:59 AM [facility] LABOR[facility]ORY Specimen Anatomical Collection Method / Collection Time Recei alberta Time (Source) Location / Volume Laterality Blood BLOOD SPECIMEN / Venipuncture / 11/15/2021 6:32 2021 6:35 Unknown Unknown AM CDT AM CDT Kory Reynoso MD HEMATOLOGY Performing Organization Address City/State/ZIP Code Phon e Number [facility] [address] [place] [address] RED CELL MORPHOLOGY (11/15/2021 6:32 AM CDT) [facility] Method Time Signature RBC COMMENT RBC RBC 11/15/2021 [place] morphology morphology 6:59 AM CDT [facility] normal normal, RBC LABORATORY morphology within normal limits for newborns. LARGE Present 11/15/2021 [place] PLATELETS 6:59 AM [facility] Specimen Anatomical Collection Method / Collection Time Recei alberta Time (Source) Location / Volume Laterality Blood BLOOD SPECIMEN / Venipuncture / 11/15/2021 6:32 2021 6:35 Unknown Unknown AM CDT AM CDT Kory Reynoso MD HEMATOLOGY Performing Organization Address City/[facility]/ZIP Code Phon e Number [facility] [address] [place] [address] PLATELET ESTIMATE (11/15/2021 6:32 AM CDT) [facility] Method Time Signature PLATELET Adequate Adequate, No 11/15/2021 [place] ESTIMATE estimate 6:59 AM [facility] CENTER LABORATORY Specimen Anatomical Collection Method / Collection Time Recei alberta Time (Source) Location / Volume Laterality Blood BLOOD SPECIMEN / Venipuncture / 11/15/2021 6:32 2021 6:35 Unknown Unknown AM CDT AM CDT Kory Reynoso MD HEMATOLOGY Performing Organization Address City/[facility]/ZIP Code Phon e Number [facility] [address] [place] [address] MANUAL DIFFERENTIAL (11/15/2021 6:32 AM CDT) P athologist Signature % NEUTROPHILS 69.0 % 11/15/2021 [place] 6:59 AM [facility] % LYMPHOCYTES 20.0 % 11/15/2021 [place] 6:59 AM CDT [facility]ICAL [facility]ENTER LABORATORY % MONOCYTES 8.0 % 11/15/2021 [place] 6:59 AM CDT [facility] LABORATORY % EOSINOPHILS 3.0 % 11/15/2021 [place] 6:59 AM [facility] % BASOPHILS 0.0 % 11/15/2021 [place] 6:59 AM CDT [facility] LABORATORY NEUTROPHILS 3.9 1.7 - 7.0 11/15/2021 [place] ABSOLUTE thou/cu mm 6:59 AM CDT [facility]ICAL [facility]ENTER LABORATORY LYMPHOCYTES 1.1 0.9 - 2.9 11/15/2021 [place] ABSOLUTE thou/cu mm 6:59 AM [facility] CENTER LABORATORY MONOCYTES 0.5 <0.9 11/15/2021 [place] ABSOLUTE thou/cu mm 6:59 AM [facility] CENTER LABORATORY EOSINOPHILS 0.2 <0.5 11/15/2021 [place] ABSOLUTE thou/cu mm 6:59 AM [facility] CENTER LABORATORY BASOPHILS 0.0 <0.3 11/15/2021 [place] ABSOLUTE thou/cu mm 6:59 AM [facility] CENTER LABORATORY Specimen Anatomical Collection Method / Collection Time Recei alberta Time (Source) Location / Volume Laterality Blood BLOOD SPECIMEN / Venipuncture / 11/15/2021 6:32 2021 6:35 Unknown Unknown AM CDT AM CDT Kory Reynoso MD HEMATOLOGY Performing Organization Address [facility] Phon e Number [facility] [address] [place] [address] LIPASE (11/15/2021 6:32 AM CDT)Only the most recent of2 resultswithin the time period is included. P athologist Signature LIPASE 11.0 8.0 - 78.0 11/15/2021 [place] IU/L 6:55 AM [facility] LABORATORY Specimen Anatomical Collection Method / Collection Time Recei alberta Time (Source) Location / Volume Laterality Blood BLOOD SPECIMEN / Venipuncture / 11/15/2021 6:32 2021 6:35 Unknown Unknown AM CDT AM CDT Kory Reynoso MD CHEMISTRY Performing Organization Address City/[facility]/ZIP [facility] Phon e Number [facility] [address] [place] [address] (ABNORMAL) HEPATIC FUNCTION PANEL (11/15/2021 6:32 AM CDT)Only the most recent of2 resultswithin the time period is included. Patholo gist Method Time Signature ALBUMIN 4.1 3.5 - 5.2 11/15/2021 [place] g/dL 6:55 AM [facility] PROTEIN,TOTAL 7.2 6.0 - 8.0 11/15/2021 [place] g/dL 6:55 AM [facility] GLOBULIN 3.1 2.0 - 3.7 11/15/2021 [place] g/dL 6:55 AM [facility] LAB[facility] A/G RATIO 1.3 1.0 - 2.0 11/15/2021 [place] 6:55 AM [facility] BILIRUBIN,TOTAL 1.0 0.2 - 1.2 11/15/2021 [place] mg/dL 6:55 AM [facility] LAB[facility]ORY BILIRUBIN,DIRECT 0.6 (H) 0.1 - 0.5 11/15/2021 [place] mg/dL 6:55 AM [facility] LABOR[facility]ORY BILIRUBIN,INDIRE 0.4 0.2 - 0.8 11/15/[address] [place] [address] mg/dL 6:55 AM [facility] LABOR[facility]ORY ALK PHOSPHATASE 164 (H) 50 - 136 11/15/2021 [place] IU/L 6:55 AM [facility] ALT (SGPT) 132 (H) 8 - 45 11/15/2021 [place] IU/L 6:55 AM [facility] AST (SGOT) 177 (H) 2 - 40 11/15/2021 [place] IU/L 6:55 AM [facility] LABOR[facility]ORY Specimen Anatomical Collection Method / Collection Time Recei alberta Time (Source) Location / Volume Laterality Blood BLOOD SPECIMEN / Venipuncture / 11/15/2021 6:32 2021 6:35 Unknown Unknown AM CDT AM CDT Kory Reynoso MD CHEMISTRY Performing Organization Address City/State/ZIP Code Phon e Number [facility] [address] [place] [address] (ABNORMAL) BASIC METABOLIC PANEL (11/15/2021 6:32 AM CDT)Only the most recent of 2 resultswithin the time period is included. Analysis Performed At Patho logist Time Signature SODIUM 141 135 - 145 11/15/2021 [place] mmol/L 6:56 AM [facility] LAB[facility]ORY POTASSIUM 2.9 (L) 3.5 - 5.0 11/15/2021 [place] mmol/L 6:56 AM [facility] LAB[facility] CHLORIDE 102 98 - 110 11/15/2021 [place] mmol/L 6:56 AM [facility] CO2,TOTAL 21 21 - 31 11/15/2021 [place] mmol/L 6:56 AM [facility] ANION GAP 18 5 - 18 11/15/2021 [facility] 6:56 AM [facility] GLUCOSE 119 (H) 65 - 100 11/15/2021 [place] mg/dL 6:56 AM [facility] CALCIUM 9.2 8.5 - 10.5 11/15/2021 [place] mg/dL 6:56 AM [facility] BUN 3 (L) 8 - 25 11/15/2021 [place] mg/dL 6:56 AM [facility] LAB[facility]ORY CREATININE 0.72 0.72 - 11/15/2021 [place] 1.25 mg/dL 6:56 AM [facility] LAB[facility]ORY BUN/CREAT RATIO 4 (L) 10 - 11/15/2021 [facility] 6:56 AM [facility] eGFR >90 >90 11/15/2021 [facility] mL/min/1.7 6:56 AM [facility] 3m2 LABORATORY Comment: As of 2021, eGFR [...] Organization Address City/State/ZIP Code Phon e Number [facility] [address] [place] [address] (ABNORMAL) ETHANOL SERUM OR PLASMA (11/11/2021 12:14 PM CDT) athologist Signature ETHANOL 0.232 (H) <0.010 11/11/2021 [place] g/dL 12:41 PM [facility] CENTER LABORATORY Specimen Anatomical Collection Method Collection Time Receive d Time (Source) Location / / Volume Laterality Blood BLOOD SPECIMEN / Capillary / 11/11/2021 12:14 022 Unknown Unknown PM CDT 12:21 PM CDT Jules Fitzpatrick MD CHEMISTRY Performing Organization Address City/[facility]/ZIP Code Phon e Number [facility] [address] [place] [address] C-REACTIVE PROTEIN (11/11/2021 12:14 PM CDT) athologist Signature C-REACTIVE 0.10 <0.50 11/11/2021 [place] PROTEIN mg/dL 12:40 PM CDT [facility] Specimen Anatomical Collection Method Collection Time Receive d Time (Source) Location / / Volume Laterality Blood BLOOD SPECIMEN / Capillary / 11/11/2021 12:14 022 Unknown Unknown PM CDT 12:21 PM CDT Jules Fitzpatrick MD CHEMISTRY Performing Organization Address City/[facility]/ZIP Code Phon e Number [facility] [address] [place] [address] MAGNESIUM (11/11/2021 12:14 PM CDT) athologist Signature MAGNESIUM 2.0 1.6 - 2.6 11/11/2021 [place] mg/dL 12:43 PM CDT [facility] LAB[facility] Specimen Anatomical Collection Method Collection Time Receive d Time (Source) Location / / Volume Laterality Blood BLOOD SPECIMEN / Capillary / 11/11/2021 12:14 022 Unknown Unknown PM CDT 12:21 PM CDT Jules Fitzpatrick MD CHEMISTRY Performing Organization Address City/[facility]/ZIP [facility] Phon e Number [facility] [address] [place] [address] from Last 3 Months Insurance Payer Benefit Plan / Subscriber ID Effective Dates Phone Addre ss Type Group [facility] [id number] 2018-Present [address] [address] [place] [address] Juan Ramon Granados Personal/Family Self 1975 [address] (Home) [place] [id number] Advance Directives Latest Code Status on File [...] 1:12 PM 09/28/2016 9:55 PM Care Teams Paint Stock Clerk Relationship Specialty Start Date End Date Melisa Delgado NP PCP - General Family Practice 04/05/[address] [place] [address] [place] [id number]
--- OUTSIDE RECORDS SUMMARY | 2021-12-08 23:35 | XMS_ITS | Encounter Summary ---
:1975 Author Organization [facility] Address [address] [place] [address] Care Team Providers Name Role Phone Aydin Morales MD Primary Care Provider Reason for Referral Procedure/Equipment (Routine) - Closed Specialty Diagnoses / Procedures Referred By Contact Refer red To Contact Diagnoses Effusion of right knee Sourav Ramirez MD Procedures MR Knee Rt WO IV Cont [address] [facility] [address] [place], [place] [address] Referral ID Status Reason Start Date Expiration Date Visits Requ ested Visits Authorized [id number] Closed 08/13/2021 11/12/2022 1 1 Procedure/Equipment (Routine) - Incomplete Specialty Diagnoses / Procedures Referred By Contact Refer red To Contact Diagnoses Acute pain of right knee Effusion of right knee Sourav Ramirez MD Procedures XR Knee Lt 1-2 Views Comparison [address] [facility] [place] [address] [place] [address] Referral ID Status Reason Start Date Expiration Date Visits V isits Requested Authorized [id number] Incomplete 08/13/2021 11/12/2022 1 1 Procedure/Equipment (Routine) - Incomplete Specialty Diagnoses / Procedures Referred By Contact Refer red To Contact Diagnoses Acute pain of right knee Effusion of right knee Sourav Ramirez MD Procedures XR Knee Rt 3 Views [address] [facility] [place] [address] Referral ID Status Reason Start Date Expiration Date Visits V isits Requested Authorized [id number] Incomplete 08/13/2021 11/12/2022 1 1 Reason for Visit Reason Comments SWELLING, KNEE Right Encounter Details Date Type Department Care Team Description 08/13/2021 Office Visit [facility] Sourav Ramirez Acute p ain of right knee (Primary Dx); Urgent Care MD Amberly Effusion of right knee [address] [facility] A[place] [address] [place] [phone] (Wo rk) Social History Tobacco Use Types [...] Dr. Xochilt Ramirez MD Orthopedic [facility], [place] [facility] Nurse Line: [phone] Please contact Orthopedic Urgent Care line for all requests and questions. Medication Requests: Prescriptions are not filled on Weekends or on Weekdays after 3:00PM For all medication refills: Request a refill using Gu[employer] Localt or contact your Pharmacy To schedule appointments: [phone] Paperwork Requests: FMLA or disability paperwork can be faxed to: [phone] Medical records: [phone] (option 4) [employer] E-mail Address: [email or web address] Schedule MRI Follow up here in [facility] [...] Other pain medications have acetaminophen in the ([place], Fiorcet, Percocet). documented in this encounter Progress [...] Sourav Ramirez MD Sports & Orthopedic Medicine [facility] Orthopedic Urgent Care documented in this [...] MR KNEE RT WO IV CONT LOCATION: [facility] DATE/TIME: 08/18/2021 12:10 PM INDICATION: Knee trauma, [...] is intact. -Pes anserine tendons are normal. Road Consultant omedial corner complex ligaments are intact. POSTEROLATERAL [...] MR KNEE RT WO IV CONT LOCATION: [facility] DATE/TIME: 08/18/2021 12:10 PM INDICATION: Knee trauma, [...] is intact. -Pes anserine tendons are normal. Road Consultant omedial corner complex ligaments are intact. POSTEROLATERAL [...] tibial plateau. 3. Slight cartilage irregularity and isuara ma both sides of the lateral compartment [...] joint documented in this encounter Care Teams Reporting Process Consultant Relationship Specialty Start Date End Date Aydin Morales MD PCP - General 08/29/13 [address] [facility] [address] [place] [address] documented as of this encounter
--- OUTSIDE RECORDS SUMMARY | 2021-12-08 23:35 | XMS_ITS | Encounter Summary ---
:1975 Author Organization [facility] Address [address] [place] [address]. [place] [address] Care Team Providers Name Role Phone Unavailable Primary Care Provider Unavailable Encounter Details Date Type Department Care Team Description 06/03/2009 Results Only HOSP RESULTS Colin Silva MD [address] [facility] [address] [place], [place] [address] (Wo rk) Social History [...] was read by [employer] [place], [place]. Bryan Murry MD SPECIAL IMAGING STUDIES [...]
--- OUTSIDE RECORDS SUMMARY | 2021-12-08 23:35 | XMS_ITS | Encounter Summary ---
:1975 Author Organization [facility] Address [address] [place] [address] Care Team Providers Name Role Phone Aydin [...] Acet Inj Nos: (per 10 mg) [address] [facility] [place], [place] [address] Referral ID Status Reason Start Date Expiration Date Visits V isits Requested Authorized [id number] New Request 08/26/2021 11/25/2022 1 1 Reason for Visit Reason Comments KNEE PAIN Right knee Consult/Transfer Care (Routine) - New Request Specialty Diagnoses / Procedures Referred By Contact Refer red To Contact Diagnoses Acute pain of right knee Anupam Mclain DO [address] [place], [place] [address] Referral ID Status Reason Start Date Expiration Date Visits V isits Requested Authorized [id number] New Request 08/18/2021 11/17/2022 1 1 Encounter Details Date Type Department Care Team Description 08/25/2021 Office Visit Isaac Bedolla B, MD Chronic pain of right knee (Primary Dx); CENTER [address] [facility] [address] Effusion of right knee; [address] [place], [place] S/P right knee arthroscopy; [place] [address] Complex tear of medial meniscus of right knee as current injury, initial encounter; [id number] Primary osteoarthritis of ri ght knee Social [...] 9:14 AM CDT Thank you for Choosing [facility] for your health care visit today. Dr. Isaac Peña MD Orthopaedic Surgeon Medication Requests: Prescriptions are not filled on weekends or on weekdays after 3:00 PM. For all medication refills: Request a refill using AwesomePiecet or contact your pharmacy. What is Know Your Cost? Know Your Cost is a service for patients and patient/members to call and receive personalized cost information and estimates across our care group. The phone number is (COST) Wednesday - Wednesday 8 AM to 5 PM Advanced Imaging Scheduling: To schedule an MRI, Ultrasound, or Image guided injection at [facility] please call [phone]. To schedule an MRI or CT at a [facility] [place] [facility] location please call [phone]. [employer] [address] [place] [address] (Phone) Email: [email or web address] Release of Information: Radiology/Imaging [address] [place] [address] (Phone) Health Information Management [address] [place] [address] (Phone) [employer] documented in this encounter Progress Notes Isaac Peña MD - 08/25/2021 9:10 AM CDT Juan Ramon Granados [id number] 1975 [facility] Orthopaedic Surgery Follow-Up 08/25/2021 Interval History: Juan [...] drainage and corticosteroid injection. We gave him tubi-ramp manager today. Based on our discussion the patient [...] for fluid analysis. cc: Anupam Mclain DO [address] [place] [address] Scribe Disclosure: ISaundra, am serving as a [...] leg documented in this encounter Care Teams Timber Hand Relationship Specialty Start Date End Date Aydin Morales MD PCP - General 08/29/13 [address] [facility] [address] [place] [address] documented as of this encounter
--- OUTSIDE RECORDS SUMMARY | 2021-12-08 23:35 | XMS_ITS | Encounter Summary ---
:1975 Author Organization [facility] Address [address] [facility] [place] [address] Care Team Providers Name Role Phone Aydin Morales MD Primary Care Provider Reason for Visit Reason Comments Abdominal Pain Pt was on 3A, had acute ABD pain, sent to ER by Hospitalist. Auth/Cert Specialty Diagnoses / Procedures Referred By Contact Refer red To Contact Med Surg Diagnoses Acute pancreatitis Acute pancreatitis Uu U7b [address] [place] [address] Phone: Referral ID Status Reason Start Date Expiration Date Visits Requ ested Visits Authorized [id number] 1 1 Encounter Details Date Type Department Care Team Description 10/20/2020 - [facility] Emily Borja MD [address] [address] Alcohol-induced 10/23/2020 Encounter [facility] Unit 7B Jackson Coughlin DO [address] [place] [address] acute pancreatitis, Jackson Martinez MD [address] [place] [address] unspecified 500 [facility] Chetan Villasenor MD [address] [address] complication status MPLABBY Solano (Primary Dx) [id number] Social History Tobacco Use Types Packs/Day Years [...] Villasenor MD - 10/23/2020 11:42 AM CDT [facility] Hospitalist Discharge Summary Date of Admission: 10/20/2020 Date of Discharge: 10/23/2020 12:42 PM Discharging Provider: Chetan Villasenor MD Discharge Team: Hospitalist Service, [facility] Discharge Diagnoses SIRS without active infection due [...] ?? Consultations This Hospital Stay [facility] IP CONSULT VASCULAR ACCESS CARE ADULT IP CONSULT Code Status Prior Time Spent on this Encounter I, Chetan Villasenor MD, personally saw the patient today and spent less than or equal to 30 minutes discharging this patient. Chetan Villasenor MD [facility] [address] [place] [phone] Physical Exam BP (!) 148/89 (BP Location: [...] Narrative EXAM: XR ABDOMEN 1 VIEW LOCATION: [facility] DATE/TIME: 10/20/2020 4:00 AM INDICATION: abdominal pain [...] interpretation and I agree with the findings. GIBLERTO ENRIQUEZ MD Discharge Medications Discharge Medication List [...] PA-C Hospitalist Service Contact information available via [facility] Paging/Directory Chetan Villasenor MD - 10/22/2020 4:19 PM CDT [facility] Medicine Progress Note - Hospitalist Service, [...] 3500. - Cont Dilaudid for pain control (PLY SPLICER) - Added OxyIR PRN - ADAT - [...] and Patient. Chetan Villasenor MD Hospitalist Service, [address] Securely message with the MediaShare Console (learn more here) Text page via [facility] Paging/Directory Please see sign in/sign out [...] SPIRITUAL HEALTH SERVICES SPIRITUAL ASSESSMENT Progress Note [facility] ([place] 7B REFERRAL SOURCE: Staff referral - bedside nurse Yumiko Patient declined visit at this time; said that tomorrow would be better. PLAN: I will follow up tomorrow. Spiritual Health Services remains available for patient, family, and staff support. Please page the mailroom personnel superintendent operations division either via [employer] (Spiritual Health/[facility]) or by placing a STAT or AIMEE Epic referral for Spiritual Health (which will roll to the mailroom personnel pager). Malcolm Villalba Guidance Director Pager: [phone] Jackson Lockwood MD - 10/21/2020 3:44 PM CDT [facility] Medicine Progress Note - Hospitalist ServiceFederico [...] IVF until PO improving. Then wean off PLY SPLICER and stop IVF ~24 hr from now - send a peripheral BC in case infection is later presumed?? Alcohol withdrawal Patient was admitted initially to the detox unit. Patient did present with desire for treatment. - CIAR protocol - Valium as needed - high dose gabapentin ?? Alcohol use disorder Patient has been using significant amounts of alcohol and drinking daily. This is related to significant life stressors as it is the 1 year anniversary of his daughter's . He has been sober in thewast but relapsed several months ago unfortunately. -Patient [...] and Patient. Jackson Lockwood MD Hospitalist Service, [address] Securely message with the MediaShare Console (learn more here) Text page via [facility] Paging/Directory Please see sign in/sign out [...] family. 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 In a lot of pain, abdominal, with labs showing worsening lipase. Patient states he is not drinking. Increased dilauded during daytime has been ineffective. Placed orders for PLY SPLICER pump 0.3 mg q 15 m. 1.2 [...] notes. Jackson Lloyd D.O. Internal Medicine, Hospitalist [facility] Pager: [phone] Chetan Owen MD - 10/20/2020 11:30 AM [...] as needed Patient may benefit from a PLY SPLICER Trial of ketorolac IV Protonix Antiemetics IV fluids Alcohol drawl protocol Admission orders have been placed by Dr. Borja. documented in this encounter H&P Notes Evangelist Borja MD - 10/20/2020 5:10 AM CDT [facility] History and Physical - Hospitalist Service Date [...] Patient did present with desire for treatment. -METHODIST JENNIE EDMUNDSON protocol - Valium as needed - high [...] discussed with the Patient. MD Brodie Guerrero [facility] Securely message with the MediaShare Console (learn more here) Text page via [employer] Paging/Directory Chief Complaint Abdominal Pain History is [...] SpO2 95% BMI 29.29 kg/m?? Shift time: 7972-5097 Neuros: A&Ox4. Pt seems anxious. Denies any [...] Jackson RN - 10/22/2020 10:57 PM CDT Cloak Room Attendant efrad federico gill cover. Cesar Franco Pt needs something additional to help sleep. Thank you, Dede [phone] Plan of Care - Ashley Truong RN [...] [place] [phone] Provider Notification - Ashley Truong RN - 10/22/2020 4:38 PM CDT 7b [id number] franco Pty becoming increasingly nauseas, abd distended, -BM -flatus faint BS for 3 days. Simethicone, suppository, and now enema with no success. Maybe abd XR? [place] [phone] Plan of Care - Yulisa Espinoza RN [...] SpO2 92% BMI 29.29 kg/m?? Shift time: 4143-8609 Neuros: A&Ox4. Denies any numbness or tingling. Gave PRN oral valium x2. Cardiac: Tachy and some HTN but within normal parameters. Respiratory: WDL. Denies any SOB. Does sat in the lower 90's. GI/Gu: Voiding, not saving. No BM this shift. PRN suppository giving. Skin/Incisions: No new deficits. . Pain: PLY SPLICER pump 0.3 Q 10 minutes. Diet: Clears. Activity: ind. Plan: Continue with POC. Provider Notification - Dede Jackson RN - 10/21/2020 9:39 PM CDT Cloak Room Attendant taylor henderson. 7b rm [id number] Cesar Franco Pt is asking for a suppository. Thank you, Dede [phone] Plan of Care - Ashley Truong RN - 10/21/2020 6:32 PM CDT 3-7 p Admit 10/20 for alcohol induced pancreatitis VSS X tachy 100s Tmax 100.8 Neuro: anxious, sweaty, antsy, CIWA of 10 valium given with improvement Pain: treated with dilaudid PLY SPLICER 0.3/10 CMS: some on and off trembling [...] 100.3. Patient reports pain is tolerable with PLY SPLICER Dilaudid 0.3 every 10 min, with a 0.5 mg bump. Abdomen soft, slightly distended with bowel sounds present, patient reports he isn'tpassing gas and no BM this shift. Suppository requested per patient. Tolerating clear liquid diet. Up independently. CIWA of 1 this shift. Provider Notification - Yulisa Espinoza RN - 10/21/2020 8:12 AM CDT Paged provider at #[phone] regarding pain and BP of 155/103, HR 117 Plan of Care - Micheal Boothe RN - 10/21/2020 1:44 AM CDT Problem: Pain Acute Goal: Acceptable Pain Control and Functional Ability Outcome: No Change Intervention: Develop Pain Management Plan Recent Flowsheet Documentation Taken 10/21/2020 0036 by Micheal Boothe RNco founder and cto Interventions: pain pump in use PLY SPLICER in placed, need constant reminder to use PLY SPLICER Plan of Care - Stephen Lange RN [...] Weight: 45 years old male came from [place] [facility], history of acute alcohol withdrawal excessive alcohol use, complain of sever abdominal pain, nausea and vomiting, pt on arrival appears uncomfortable, Epigastric tenderness, rated pain 10/10, compazine and IV dilaudid 0.5 given, that was insufficient, paged, started PLY SPLICER dilaudid 0.3 Q 15, Zofran given at 2220, no emesis, CIWA score 3. Pt stated wants PLY SPLICER basal rate, pt lemos resting comfortably, if needed later, please let MD know, Expected discharge to [facility] once adequate pain control, LR at 125 ml/hr, Voided not saved, no BM, continue with plan of care. Plan of Care - Stephen Lange RN - 10/20/2020 10:17 PM CDT Admitted/transferred from: [place] [facility] 2 RN skin assessment completed by Stephen Lange RN, Skin assessment finding, pt refused assessment at this time due to pain per pt Interventions/actions: Will reassess tomorrow, Pharmacy-Admission Medication History - Renetta Dewitt RPH - 10/20/2020 4:00 PM CDT Admission Medication History Completed by Pharmacy See [facility] Admission Navigator for allergy information, preferred outpatient pharmacy, prior to admission medications and immunization status. Medication History Sources: ??? Patient ??? SureScript Changes made to VISCOSE DEPARTMENT WORKER medication list (reason): ??? Added: None ??? [...] Medication history completed by: Renetta Dewitt, PharmD, [facility] 10/20/2020 4:02 PM documented in [...] LAB - BLOOD ORDERABLES Performing Organization Address City/[facility]/ZIP Code [place] [address] Lab [address] [facility], Room 3[address]580 [place] [address], Lab [facility] [address] [facility], Room 3580 Platelet count (10/23/2020 7:31 AM [...] LAB - BLOOD ORDERABLES Performing Organization Address City/[facility]/ZIP Code [place] [address] [phone] Lab [address] [facility], Room 3-580 [place] [address], Lab [address], Room 3580 XR Abdomen 1 View [...] Address City/State/ZIP Code [place] [address] [phone] Lab 500 [facility] Building, Room 3-[address] [place] [address], Lab [place] 500 [facility] J Building, Room 3580 Magnesium [...] City/State/ZIP Code [place] [address] Lab [address] [facility] [address] Building, Room 3-580 [place] [address], Lab [place] [address] [facility], Room 3580 (ABNORMAL) Comprehensive metabolic panel (10/22/2020 7:41 AM CDT) [facility] gist Method Time Signature Sodium 135 [...] City/State/ZIP Code Ph[place] [address] Lab [address] [facility], Room 3580 [place] [address], Lab [facility] [address] [facility], Room 3580 (ABNORMAL) CBC with platelets (10/22/2020 7:41 AM CDT) [facility] Method Time Signature WBC Count 11.6 [...] LAB - BLOOD ORDERABLES Performing Organization Address City/[facility]/ZIP Code Ph[place] [address] Lab [address] [facility], Room 3-580 [place] [address], Lab [place] [address] [facility], Room 3580 Blood Culture Arm, Left (10/21/2020 [...] Code Phon e Number UU IDD LABORATORY [facility] [place] [address] [facility], Room [address]297 UU IDD LABORATORY [facility] Infectious [place], [place] [phone] Diseases Diagnostic [phone], [facility] Lab (IDDL) [address] [facility], Room D297 Blood Culture Hand, Right [...] Code Phon e Number UU IDD LABORATORY [facility] [place] [address]ag[address] Lab [address] [facility], Room [address]297 UU IDD LABORATORY [facility] Infectious [place], [place] [phone] Diseases Diagnostic [phone], [facility] Lab (IDDL) 420 [facility], Room D297 Lactic Acid STAT (10/21/2020 [...] City/State/ZIP Code Ph[place] [address] Lab [address] [facility], Room 3-580 [place] [address], Lab [facility] [address] [facility], Room 3580 (ABNORMAL) CBC with platelets (10/21/2020 [...] City/State/ZIP Code [place] [address] Lab [address] [facility] Building, Room 3580 [place] [address], Lab [place] [address] [facility] Building, Room 3580 (ABNORMAL) Lipase (10/21/2020 [...] City/State/ZIP Code [place] [address] Lab 500 [facility] [address] Building, Room 3-580 [place] [address], Lab [place] [address] [facility] [address] Building, Room 3580 (ABNORMAL) Comprehensive metabolic panel (10/21/2020 7:35 AM CDT) [facility] Method Time Signature Sodium 135 133 [...] City/State/ZIP Code [place] [address] Lab [address] [facility], Room 3-580 [place] [address], Lab [place] [address] [facility], Room 3580 Phosphorus (10/20/2020 3:45 PM CDT) [...] City/State/ZIP Code [place] [address] Lab [address] [facility], Room 3-580 [place] [address], Lab [facility] [address] [facility], Room 3580 (ABNORMAL) Magnesium (10/20/2020 3:45 PM [...] City/State/ZIP Code [place] [address] Lab [address] [facility], Room 3-580 [place] [address], Lab [facility] [address] [facility], Room 3580 Creatinine (10/20/2020 3:45 PM CDT) [...] LAB - BLOOD ORDERABLES Performing Organization Address City/[facility]/ZIP Code Ph[place] [address] Lab 500 [facility] [address] Building, Room 3-[address] [place] [address], Lab [place] [address] [facility], Room 3580 XR Abdomen 1 View (10/20/2020 [...] CDT EXAM: XR ABDOMEN 1 VIEW LOCATION: [facility] DATE/TIME: 10/20/2020 4:00 AM INDICATION: abdominal pain COMPARISON: None. Procedure Note Kristopher Delgado MD - 10/20/2020F ormatting of this note might be different from the original. EXAM: XR ABDOMEN 1 VIEW LOCATION: [facility] DATE/TIME: 10/20/2020 4:00 AM INDICATION: abdominal pain [...] City/State/ZIP Code [place] [address] Care Lab [address] [place] [address], Room M309 Lactic acid whole blood (10/20/2020 [...] City/State/ZIP Code [place] [address] Care Lab [address] [place] [address], Room M309 (ABNORMAL) Lipase (10/20/2020 3:50 AM [...] City/State/ZIP Code [place] [address] Care Lab [address] [place] [address], Room M309 CBC with platelets (10/20/2020 3:50 [...] City/State/ZIP Code [place] [address] Care Lab [address] [facility], Room M309 (ABNORMAL) Comprehensive metabolic panel (10/20/2020 3:50 AM CDT) [facility] gist Method Time Signature Sodium 138 [...] City/State/ZIP Code Phon e Number UR LABORATORY [facility] [place] [address] Care Lab [address] [facility], Room M309 documented in this [...] 3:44 AM CDT 0.2 mg HYDROmorphone (DILAUDID) PLY SPLICER 0.2 mg/mL Shift Total 10/20/2020 10:00 P M CDT OPIOID NAIVE (age less than 65 years) Continuous Rate: 0 mg/hr, PLY SPLICER Dose: 0.3 mg, PLY SPLICER Lockout: 15 Minutes, One Hour Limit: 1.2 mg, Clinician Bolus (one time dose): 0 mg, Starting on 10/20/20 at 1700, Hold the dose for analgesic side effects. Notify the provider to assess for uncontrolled pain or analgesic side effects. Do NOT give any additional opioids while on PLY SPLICER unless provider authorized., Intravenous New Syringe/Cartridge 10/20/2020 5:17 PM CDT HYDROmorphone (DILAUDID) PLY SPLICER 0.2 mg/mL Shift Total 10/22/2020 6:00 AM CDT OPIOID NAIVE (age less than 65 years) Continuous Rate: 0 mg/hr, PLY SPLICER Dose: 0.3 mg, PLY SPLICER Lockout: 10 Minutes, One Hour Limit: 1.8 mg, Clinician Bolus (one time dose): 0 mg, Starting on Wed10/21/20 at 0830, Hold the dose for analgesic side effects. Notify the provider to assess for uncontrolled pain or analgesic side effects. Do NOT give any additional opioids while on PLY SPLICER unless provider authorized., Intravenous Rate/Dose Verify 10/21/2020 [...] 500 mL/hr, Administer over 2 Hours, On Friendship 10/20/20 at 0330, For 1 dose lactated ringers infusion New Bag 10/20/2020 11:25 AM CDT 125 mL/hr at 125 mL/hr, Intravenous, CONTINUOUS, Please run after bolus is completed, Starting on Friendship 10/20/20 at 0330, Until Friendship 10/20/20 at 1531 New Bag 10/20/2020 6:36 AM CDT 125 mL/hr lactated ringers infusion New Bag 10/20/2020 3:53 PM CDT 250 mL/hr at 250 mL/hr, Intravenous, CONTINUOUS, Starting on Friendship 10/20/20 at 1600, Until Friendship 10/20/20 at 1959 lactated ringers infusion Rate/Dose Change 10/21/2020 4:00 PM CDT 100 mL/hr at 125 mL/hr, Intravenous, CONTINUOUS, After additional 1L is completed, Starting on Friendship 10/20/20 at 2000, Until Wed10/21/20 at 1556 [...] Group 1) 075 (Given - Provider: Yulisa muñzo RN)1958 (Given - Provider: Dede Jackson RN) [...] Medication Order 10/21/2020 10/22/2020 10/23/2020 HYDROmorphone (DILAUDID) PLY SPLICER 0.2 mg/mL O PIOID NAIVE (age less than 65 years) (CANCELED) 0903 (New Syringe/Cartridge - Provider: Yulisa Espinoza RN)1157 (New Syringe/Cartridge - Provider: Yulisa Espinoza RN)1449 (Shift Total - Provider: Yulisa Espinoza RN)2136 (Rate/Dose Verify - Provider: Dede Jackson RN) 0600 (Shift Total - Provider: Dede Jackson RN) Continuous Rate: 0 mg/hr, PLY SPLICER Dose: 0.3 mg, PLY SPLICER Lockout: 10 Minutes, One Hour Limit: 1.8 mg, Clinician Bolus (one time dose): 0 mg, Starting on Wed10/21/20 at 0830, Hold the dose for analgesic side effe cts. Notify the provider to assess for u ncontrolled pain or analgesic side effects. Do NOT give any additional opioids while on PLY SPLICER unless provider authorized., Intravenous lactated ringers infusion [...] after each naloxone dose. Consider transfer to [facility] if patient respiratory parameters hav e not [...] response.
documented in this encounter Care Teams Computer Numeric Control Setter Relationship Specialty Start Date End Date Aydin Morales MD PCP - General 11/01/09 100[address] [facility] [address] [place] [address] documented as of this encounter
--- OUTSIDE RECORDS SUMMARY | 2021-12-08 23:35 | XMS_ITS | Encounter Summary ---
:1975 Author Organization [facility] Address [address] [place] [address] Care Team Providers Name Role Phone Aydin Morales MD Primary Care Provider Reason for Visit Procedure/Equipment (Routine) - Incomplete Specialty Diagnoses / Procedures Referred By Contact Refer red To Contact Diagnoses Acute pain of right knee Effusion of right knee Sourav Ramirez MD Procedures XR Knee Lt 1-2 Views Comparison [address] [facility] [address] [place] [address] Referral ID Status Reason Start Date Expiration Date Visits V isits Requested Authorized [id number] Incomplete 08/13/2021 11/12/2022 1 1 Encounter Details Date Type Department Care Team Description 08/13/2021 Ancillary [facility] Sourav Ramirez Acute pain of right knee; Procedure 8100 Zhane Gaming MD Effusion of right knee Drive [address] [facility] [address] [place], [place] [address] [phone] Social History Tobacco Use Types Packs/Day Years [...] joint documented in this encounter Care Teams Wire Mesh Filter Fabricator Relationship Specialty Start Date End Date Aydin Morales MD PCP - General 08/29/13 100[address] [facility] 100 [place] [address] documented as of this encounter
--- OUTSIDE RECORDS SUMMARY | 2021-12-08 23:35 | XMS_ITS | Encounter Summary ---
:1975 Author Organization [facility] Address [address] [facility] [place] [address] Care Team Providers Name Role Phone Aydin Morales MD Primary Care Provider Reason for Visit Reason Onset Date Comments MH/CD Inpatient 10/19/2020 Encounter Details Date Type Department Care Team Description 10/19/2020 Telephone [facility] Generic, Behavioral MH/ CD Inpatient Behavioral Health In shirley Skaggs MD [address] [place] [address] Social History Tobacco Use Types Packs/Day [...] - 10/19/2020 2:27 PM CDT S: [facility], [facility], 45/M, alcohol detox B: Pt reports [...] Intake awaiting lab work 414pm - Patrice, fire control technician b provider, paged 425pm - Patrice accpets Pt placed in queue 435pm - unit charge notified, 730pm for report 436pm - ED charge notified via text page documented in this encounter Plan of Treatment Not on filedocumented as of this encounter Visit Diagnoses Not on filedocumented in this encounter Care Teams Car Conditioner Relationship Specialty Start Date End Date Aydin Morales MD PCP - General 11/01/09 1001 [facility] 100 [place] [address] documented as of this encounter
--- OUTSIDE RECORDS SUMMARY | 2021-12-08 23:35 | XMS_ITS | Encounter Summary ---
:1975 Author Organization [facility] Address [address] [place] [address] Care Team Providers Name Role Phone Unavailable Primary Care Provider Unavailable Encounter Details Date Type Department Care Team Description 12/18/2013 Hospital Encounter HX [facility] FAMILYPRA Lidia Elizondo, WALTER, C.N.P. [address] [place] [address] (Wo rk) Social History Tobacco [...] WALTER, C.N.P. - 12/18/2013 9:46 AM CDT [id number] CHIEF COMPLAINT/REASON FOR VISIT 1. Establish care. 2. Preop for right rotator cuff repair. HISTORY OF PRESENT ILLNESS This is Anastasiya's first visit to [facility] in [place]. He recently moved from [place], [place]. He states he injured his right shoulder playing softball this summer. He is being seen at the request of Dr. Barry for medical evaluation prior to surgery. He is scheduled for right shou lder rotator cuff repair with Dr. Barry at [facility] on 12/19/2013. Has no history of [...] paperwork will be completed and faxed to [facility]. . Allof his questions were answered. He is class ASA class 1. Gail Elizondo CNP/gala Electronically Signed By: GAIL ELIZONDO CNP On: 12/18/2013 11:27 AM Modified by and Electronically Signed by: GAIL ELIZONDO CNP On: 12/18/2013 11:27 AM Source: [facility] MHSDOLBEYNONRADSYS Document Id: [id number] documented in this encounter Nursing Notes Gail [...] can help keep it that way. ?? [phone] Jc [facility], [address] [place] [address], [place] [address]. All rights reserved. This information is not intended as a substitute for professional medical care. Always follow your healthcare professional's instructions. This document has images extracted. Please consider using [employer] for all your patient education needs. Source: [facility] POWERCHART Document Id: [id number] documented in this encounter Miscellaneous Notes Miscellaneous - Gail Elizondo APRN, C.N.P. - 12/18/2013 10:10 AM CDT Ambulatory Patient Summary [address] [id number] Visit Information Name: ANASTASIYA GRANADOS [facility] Number: [id number] Current Date: 12/18/2013 10:10:05 Physicians [...] can help keep it that way. ?? [phone] Jc [facility], [address] [place] [address], [place] [id number]. All rights reserved. This information is not intended as a substitute for professional medical care. Always follow your healthcare professional's instructions. Your Goals/Additional instructions: This document has images extracted. Please consider using [employer] for all your patient education needs. Source: [facility] POWERCHART Document Id: [id number] Miscellaneous - Gail Elizondo APRN, C.N.P. - 12/18/2013 10:10 AM CDT Ambulatory Discharge Medication List [address] [id number] Visit Information Name: GRANADOSDEZ OBRIENFIORDALIZA MONROE [facility] Number: [id number] Visit Date: 12/18/2013 10:10:04 Attending [...] of emergency. Electronically Signed By: GAIL ELIZONDO CLOTH WEIGHER Signed On:18-DEC-2013 10:09:37 Additional Information: Source: [facility] POWERCHART Document Id: [id number] Miscellaneous - Evelyn Saxena C.MBelkisABelkis - 12/18/2013 [...] CDT Psychosocial Domestic Abuse Concerns : None Protestant Preference : No qualifying data available. EVELYN SAXENA - 12/18/2013 10:04 CDT Advance Directive Advanced Directives : Yes Advance Directive Type : Health care power of corporate attorney EVELYN SAXENA - 12/18/2013 10:04 CDT Educ Needs Learning Style Preference Adult Grid Patient : Printed materials Family : Printed materials EVELYN SAXENA - 12/18/2013 10:04 CDT [facility]uro[facility]ART Document Id: [id number] CDT!25 Miscellaneous - Evelyn Saxena C.M.A. - 12/18/2013 9:53 AM CDT Adult Roller Mill Tender Intake/History Adult Roller Mill Tender Intake/History Entered On: 12/18/2013 10:00 CDT Performed On: 12/18/2013 9:53 CDT by EVELYN SAXENA Intake Chief Complaint : pre op physical; right shoulder surgery; 12/19/2013; [facility];Dr. Barry. Temperature Core : 37.2 DegC(Converted to: [...] EVELYN SAXENA - 12/18/2013 9:53 CDT Source: [employer] Document Id: [id number] CDT!36 Miscellaneous - Evelyn Saxena C.M.A. - [...] EVELYN SAXENA - 12/18/2013 9:53 CDT Source: [facility] Document Id: [id number] CDT!10 documented in this encounter Plan of [...] X109L Erythrocytes 4.60 4.32 - POWERCHART 5.72 F4453X Hemoglobin 15.6 13.5 - POWERCHART 17.5 GDL [...] C.N.P. LAB BLOOD ADD-ON Performing Organization Address City/[facility] Code Phon e Number POWERCHART (ABNORMAL) BMP [...]
--- OUTSIDE RECORDS SUMMARY | 2021-12-08 23:35 | XMS_ITS | Encounter Summary ---
:1975 [facility] Address [address], [place] [address] Care Team Providers Name Role Phone Aydin Morales MD Primary Care Provider Encounter Details Date Type Department Care Team Description 12/10/2020 Orders Only Initial Department Provider, Jessica, [facility] DEMETRIA GARRETT MD [place], [place] [address] Interface provider [phone] [place] [address] Social History Tobacco Use Types Packs/Day Years [...] on filedocumented in this encounter Care Teams Calender Roll Press Operator Relationship Specialty Start Date End Date Aydin Morales MD PCP - General 08/29/13 1001 [facility] [address] [place] [address] documented as of this encounter
--- OUTSIDE RECORDS SUMMARY | 2021-12-08 23:35 | XMS_ITS | Encounter Summary ---
:1975 Author Organization [place] Address [address] [place] [address]. [place] [address] Care Team Providers Name Role Phone Aydin [...] on filedocumented in this encounter Care Teams Data Miner Relationship Specialty Start Date End Date Aydin Morales MD PCP - General 11/01/09 1001 [facility] [address] 100 [place] [address] documented as of this encounter
--- OUTSIDE RECORDS SUMMARY | 2021-12-08 23:35 | XMS_ITS | Encounter Summary ---
:1975 [facility] Address [address] [place] [address] Care Team Providers Name Role Phone Aydin Morales MD Primary Care Provider Reason for Visit Procedure/Equipment (Routine) - Closed Specialty Diagnoses / Procedures Referred By Contact Refer red To Contact Diagnoses Effusion of right knee Sourav Ramirez MD Procedures MR Knee Rt WO IV Cont [address] [facility] [place] [address] Referral ID Status Reason Start Date Expiration Date Visits Requ ested Visits Authorized [id number] Closed 08/13/2021 11/12/2022 1 1 Encounter Details Date Type Department Care Team Description 08/18/2021 Ancillary Sourav Ramos Effusion of right Procedure Radiology MRI MD Amberly knee [address] [facility] [place] [address] [facility] [place] [phone] [address] Social History Tobacco Use Types Packs/Day Years [...] MR KNEE RT WO IV CONT LOCATION: [facility] DATE/TIME: 08/18/2021 12:10 PM INDICATION: [...] is intact. -Pes anserine tendons are normal. Price Clerk omedial corner complex ligaments are intact. POSTEROLATERAL [...] MR KNEE RT WO IV CONT LOCATION: [facility] DATE/TIME: 08/18/2021 12:10 PM INDICATION: [...] is intact. -Pes anserine tendons are normal. Price Clerk omedial corner complex ligaments are intact. POSTEROLATERAL [...] joint documented in this encounter Care Teams Optometrist President/Practice Owner Relationship Specialty Start Date End Date Aydin Morales MD PCP - General 08/29/13 1001 [facility] 100 [place] [address] documented as of this encounter
--- OUTSIDE RECORDS SUMMARY | 2021-12-08 23:35 | XMS_ITS | Clinical Summary ---
:1975 Author Organization [place] Address [address] [place] [address] Care Team Providers Name Role Phone Aydin [...] Effective Phone Address T ype Group Dates [facility] [id number] 2020-Prese [phone] [address] [facility] [address] [place] [address] [facility] [id number] 2020-Prese [phone] [place] [address] Juan Ramon Granados Personal/Family Self 1975 [address] (Home) [facility] [phone] Brodie WATERMAN (Work) [phone] Juan Ramon Granados Behavioral Self 1975 [address] (Home) [facility] [phone] Brodie [place] (Work) [phone] Advance Directives For more information, please contact: [phone] Latest Code Status on File Code Status [...] or legal decision maker available Care Teams Bingo Cashier Relationship Specialty Start Date End Date Aydin Morales MD PCP - General 11/01/09 1001 [facility] 100 [place] [address]
--- OUTSIDE RECORDS SUMMARY | 2021-12-08 23:35 | XMS_ITS | Encounter Summary ---
:1975 Author [facility] Address [address] [place] [address] Care Team Providers Name Role Phone Aydin Morales MD Primary Care Provider Reason for Visit Procedure/Equipment (Routine) - Incomplete Specialty Diagnoses / Procedures Referred By Contact Refer red To Contact Procedures Isaac Peña MD [facility] Arthroscopy Knee [address] [place] [address] Referral ID Status Reason Start Date Expiration Date Visits V isits Requested Authorized [id number] Incomplete 12/09/2020 03/10/2022 1 1 Encounter Details Date Type Department Care Team Description 12/10/2020 Ancillary Procedure [facility] Isaac Peña MD [facility] [address] [place] [address] 8100 [place], [place] [address] [phone] (Wo rk) Social History Tobacco Use Types [...] on filedocumented in this encounter Care Teams Laborer Car Barn Relationship Specialty Start Date End Date Aydin Morales MD PCP - General 08/29/13 1001 [facility] 100 [place] [address] documented as of this encounter
--- OUTSIDE RECORDS SUMMARY | 2021-12-08 23:35 | XMS_ITS | Encounter Summary ---
:1975 Author Organization [place] Address [address] [place] [address]. [place] [address] Care Team Providers Name Role Phone Aydin Morales MD Primary Care Provider Reason for Visit Reason Comments ER NOTES Encounter Details Date Type Department Care Team Description 11/01/2009 Orders Only [facility] Brian Vicente Dog Bite (Primary Dx) DO Loc 911 [facility] [place] [address] (Wo rk) Social History Tobacco Use Types Packs/Day Years Used Date Never Assessed Sex Assigned at Date Recorded Not on file documented as of this encounter Plan of Treatment Not on filedocumented as of this encounter Visit Diagnoses Diagnosis Dog bite(E906.0) - Primary Dog bite documented in this encounter Care Teams Dry Cleaning Attendant Relationship Specialty Start Date End Date Aydin Morales MD PCP - General 11/01/09 1001 [facility] 100 [place] [address] documented as of this encounter
--- OUTSIDE RECORDS SUMMARY | 2021-12-08 23:35 | XMS_ITS | Encounter Summary ---
:1975 Author Organization [facility] Address [address], [place] [address] Care Team Providers Name Role Phone Aydin Morales MD Primary Care Provider Encounter Details Date Type Department Care Team Description 12/10/2020 Anesthesia Event [facility] Segundo Wetzel, 8100 [facility] Kashif gross MD [place], [place] [address] 7814 [facility] [phone] [place], [place] [address] (Wo rk) Anesthesia Record Procedure Summary Procedure [...] signed by Kristy Penn APRN, CR NA 1441 An Stop Care transferred . Name Total [...] 3.5 in Attempts: 1 Redirects: 1 Monitoring: ekg monitor tech and continuous pulse ox CSF: adequate CSF [...] ??2:26 PM Spinal Anesthetic Performed by: Segundo Wetezl MD Authorizing/Supervising provider: ??Segundo Guerrier MD Performed [...] 3.5 in Attempts: 1 Redirects: 1 Monitoring: ekg monitor tech and continuo us pulse ox CSF: ??adequate [...] mL/hr documented in this encounter Care Teams Hydro Generation Manager Relationship Specialty Start Date End Date Aydin Morales MD PCP - General 08/29/13 1001 [facility] 100 [place] [address] documented as of this encounter
--- OUTSIDE RECORDS SUMMARY | 2021-12-08 23:35 | XMS_ITS | Clinical Summary ---
:1975 [facility] Address [address], [place] [address] Care Team Providers Name Role Phone Aydin [...] for each transition of care or referral. [employer] Allergies Active Allergy Reactions Severity Noted Date [...] 04/04/2021 Active tablet hours as needed. pancrelipase, Otr-Bovd-Vrsa, 0 04/26/2021 Active (CREON) 04110-33241 units capseul-delayed release particles sildenafil (VIAGRA) 100 [...] 09/22/2020 Chronic pain of right knee 09/22/2020 Social History Tobacco Use Types Packs/Day Years [...] Phone Address Type Plan / Dates Group [facility] [id number] 2019-Pres [phone] [phone] [place] [address] Juan Ramon Granados Personal/Family Self 1975 [address] (Home) [place] [address] Care Teams Religious Education Director Relationship Specialty Start Date End Date Aydin Morales MD PCP - General 08/29/13 1001 [facility] 100 [place] [address]
--- OUTSIDE RECORDS SUMMARY | 2021-12-08 23:35 | XMS_ITS | Encounter Summary ---
:1975 Author Organization [facility] Address [address] [place] [address] Care Team Providers Name Role Phone Aydin Morales MD Primary Care Provider Reason for Visit Reason Onset Date Comments Refill 12/12/2020 Encounter Details Date Type Department Care Team Description 12/12/2020 Refill [facility]LA Isaac Bentley MD Refill [address] [facility] [address] [facility] [address] [place] [address] [place] [address] [phone] (Wo rk) Social History Tobacco Use Types [...] status documented in this encounter Care Teams Post Hole Digger Relationship Specialty Start Date End Date Aydin Morales MD PCP - General 08/29/13 1001 [facility] 100 [place] [address] documented as of this encounter
--- OUTSIDE RECORDS SUMMARY | 2021-12-08 23:35 | XMS_ITS | Encounter Summary ---
:1975 Author Organization [facility] Address [address] [place] [address] Care Team Providers Name Role Phone Aydin Morales MD Primary Care Provider Reason for Referral Consult/Transfer Care (Routine) - New Request Specialty Diagnoses / Procedures Referred By Contact Refer red To Contact Diagnoses Acute pain of right knee Anupam Mclain DO [address] [place], [place] [address] Referral ID Status Reason Start Date Expiration Date Visits V isits Requested Authorized [id number] New Request 08/18/2021 11/17/2022 1 1 Scheduling Instructions Your provider has recommended an appoint ment with [facility]. You can quickly make your appointment online at [employer] (P)/schedule. You can also call [phone] for help scheduling yo ur appointment. We [...] right knee , subsequent encounter Care 9[address] [facility] [address] [place] [address] [phone] Social History Tobacco Use Types Packs/Day Years [...] 2:21 PM CDT Thank you for choosing [facility] for your health care visit today. Anupam Mclain, Imaging Bottom Man: [facility] [place] [address]. Call [phone] to schedule. Medication Requests: Prescriptions are filled on Weekdays before 3:00PM For all medication refills: Request a refill using MyChart or contact your Pharmacy Paperwork Requests: FMLA or disability paperwork can be faxed to: [phone] Please allow 7-10 business days for completion of all paperwork. [facility] Worker's Compensation Services: E-mail Address: [email or web address] What is Know Your Cost? Know Your Cost is a service for patients and patient/members to call and receive personalized cost information and estimates across our care group. The phone number is (COST) Wednesday - Wednesday 8 AM to 5 PM To request copies of your medical records, call: [phone] (option 4) Diagnosis: Right knee medial meniscus tear Plan: Follow Up: Schedule an appointment with for further care. If you have any questions regarding your visit or next steps, please contact us at [phone]. documented in this encounter Progress Notes Anupam Mclain, DO - 08/18/2021 12:00 AM CDT NAME: ANASTASIYA GRANADOS CSN: [id number] CLINIC NOTE DATE OF SERVICE: 08/18/2021 : [...] up as directed. ANUPAM MCLAIN DO MAC/ADALBERTOS /[id number] documented in this encounter Plan of Treatment Scheduled Referrals Name Type Priority Associated Diagnoses Order S chedule Orthopaedic Consult Referral Routine Acute pain of right O rdered: 08/18/2021 Adult/Peds knee documented as of this encounter Visit Diagnoses Diagnosis Acute pain of right knee - Primary Acute medial meniscus tear of right knee , subsequent encounter documented in this encounter Care Teams Agriculture Laborer Relationship Specialty Start Date End Date Aydin Morales MD PCP - General 08/29/13 1001 [facility] 100 [place] [address] documented as of this encounter
--- OUTSIDE RECORDS SUMMARY | 2021-12-08 23:35 | XMS_ITS | Encounter Summary ---
:1975 Author Organization [email or web address] Address [address] [place] [address] Care Team Providers Name Role Phone Aydin Morales MD Primary Care Provider Reason for Visit Reason Comments Post-Op Follow Up right knee scope Encounter Details Date Type Department Care Team Description 12/19/2020 Office Visit [facility] Dede Wray, S/[facility] knee [facility] arthroscopy (Primary [address] [facility] [address] [facility] [address] Dx) [place], [place] [address] [place], [place] [phone] (Wo rk) Social History Tobacco Use Types [...] is scheduled to start next week at [facility] in [place]. He returned to his job, which he [...] status documented in this encounter Care Teams Sap Trainer Relationship Specialty Start Date End Date Aydin Morales MD PCP - General 08/29/13 1001 [facility] 100 [place] [address] documented as of this encounter
--- OUTSIDE RECORDS SUMMARY | 2021-12-08 23:35 | XMS_ITS | Encounter Summary ---
:1975 Author Organization [place] Address [address] [place] [address] Care Team Providers Name Role Phone Aydin [...] on filedocumented in this encounter Care Teams Quality Tester Relationship Specialty Start Date End Date Aydin Morales MD PCP - General 11/01/09 1001 [facility] 100 [place] [address] documented as of this encounter
--- OUTSIDE RECORDS SUMMARY | 2021-12-08 23:36 | XMS_ITS | Encounter Summary ---
:1975 Author Organization [facility] Address [address] [place] [address] Care Team Providers Name Role Phone Aydin Morales MD Primary Care Provider Encounter Details Date Type Department Care Team Description 12/10/2020 Hospital Encounter [facility] Isaac Peña, Knee pain, right SVCS 8100 [facility] Kashif gross 8[address] [facility] [place], [place] [address] [place], [place] [phone] [address] Social History Tobacco Use Types Packs/Day Years [...] 12/10/2020 : 1975 SURGEON: Isaac Peña MD STEPDOWN NURSE: Manpreet Dixon MD (Orthopaedic Sports Medicine Fellow) Dede Mccall PA-C There was no resident available to assist with this case. A skilled executive staff assistant was required for positioning, prepping and [...] Component Value Ref Test Analysis Performed At [facility] Method Time Signature Case Report Surgical Pathology ?Case: [id number] ? 12/11/2020 [facility] Authorizing Provider: ??Isaac Morrow MD ? Collected: ? 12/10/2020 1415 ? 10:06 AM CRIS MACHU[facility] Ordering Location: ? [facility] ?Received: ?12/10/2020 1437 ? CDT Pathologist: ? Jules Maldonado MD ? Specimen: ?Knee, right, right knee synovium ? FINAL Synovium, right knee, biopsies: 12/12/19 21 [facility] Electronically DIAGNOSIS Fragments of synovium with c hronic inflammation and degenerating cartilage. 10:06 AM LABORATORY signed by YVONNE Maldonado MD on 12/11/2020 at 10:05 AM Clinical Knee pain, right 12/11/2020 [facility] Information 10:06 AM LABORATORY CDT Microscopic Microscopic 12/11/2020 [facility] Description examination is 10:06 AM LABORATORY performed. CDT Gross A: 12/11/2020 [facility] Description The specimen is received in formalin and labeled with the patient's name and Knee, right, right knee synovium . The specimen consists of 1.5 x 1.1 x 0.3 cm of mottled hurtado-red rubbery tissue fragments. 10:06 AM LABORATORY The specimen is filtered and entirely submitted 1 cassette. DV CDT Embedded 12/11/2020 [facility] Images 10:06 AM LABORATORY CDT Specimen Anatomical Collection Method Collection Time Receive d Time (Source) Location / / Volume Laterality Tissue ENTIRE KNEE REGION 12/10/2020 2:15 PM 07/2020 2:37 / Unknown CDT PM CDT Isaac Peña MD LAB PATHOLOGY Performing Organization Address City/State/ZIP Code Phon e Number [facility] [address] [place] [address] documented in this encounter Visit Diagnoses Diagnosis [...] nausea or vomiting - administer in the [facility] lowing priority based on medications ordered, effectiveness and availability: o ndansetron (ZOFRAN) > prochlorPERAZINE (COMPAZINE) > diphenhydrAMINE (BENADR YL) > hydrOXYzine HCl (VISTARIL)> ePHEDrine > scopolamine (TRANSDERM-SCOP)., PACU/Recovery fentaNYL (SUBLIMAZE) injection 25-50 mcg Given 12/10/2020 3:10 PM CDT 50 mcg 25-50 mcg, Intravenous, [id number], Other, Moderate to Severe Pain (pain score [...] (DEMEROL) injection 12.5 mg 12.5 mg, Intravenous, F2CLRODL, Shiverin g, Starting on Wed12/10/20 at 1230, Until Wed12/10/20 at 1817, For 2 doses, Maximu m cumulative dose is 25 mg. Do not give to patients receiving MAO inhibitors (e.g. phenelzine (NA RDIL), tranylcypromine (PARNATE), selegiline (ELDEPRYL))., PACU/Recovery midazolam (VERSED) injection 0.5-1 mg 0.5-1 mg, Intravenous, [id number], Anxiety , Starting on Wed12/10/20 at 1230, [...] ETED) 1333 (Started - Provider: Kristy Penn, SYSTEM SALES CONSULTANT, ELECTRICAL ENGINEERING DRAFTSPERSON) 2 g, Intravenous, Administer over 30 Min [...] Provider: Yasmine Yeung RN) 25-50 mcg, Intravenous, [id number], Other, Moderate to Severe Pain (pain score [...] (DEMEROL) injection 12.5 mg 12.5 mg, Intravenous, [id number], Shiverin g, Starting on Wed12/10/20 at 1230, Until Wed12/10/20 at 1818, For 2 doses, Maximum cumulative dose is 25 mg. Do not give to patients receiving MAO inhibitors (e. g. phenelzine (NARDIL), tranylcypromine (PARNATE), selegiline (ELDEPRYL))., PACU/Recovery midazolam (VERSED) injection 0.5-1 mg 0.5-1 mg, Intravenous, [id number], Anxiety , Starting on Wed12/10/20 at 1230, [...] tablet 5 mg 1550 (Given - Provider: iLlibeth Arellano RN - Comment: wants before long [...] Intra-op documented in this encounter Care Teams Safety Specialist Relationship Specialty Start Date End Date Aydin Morales MD PCP - General 08/29/13 1001 [facility] 100 [place] [address] documented as of this encounter
--- OUTSIDE RECORDS SUMMARY | 2021-12-08 23:36 | XMS_ITS | Encounter Summary ---
:1975 Author Organization [facility] Address [address] [place] [address] Care Team Providers Name Role Phone Aydin Morales MD Primary Care Provider Reason for Visit Reason Comments SHOULDER PAIN Encounter Details Date Type Department Care Team Description 08/30/2013 Surgical Consult [facility] Erich Kirkland Pai n in joint, CENTER shoulder region [address] [place] [address] [place] [address] (Primary Dx) [place] [address] [phone] Social History Tobacco Use Types Packs/Day Years [...] CDT Dr. Erich Kirkland MD Orthopaedic Surgeon Cinder Pitman: Patricia Matson Please contact Patricia for all administrative questions at [phone] Please contact Nurse Line for all medical related questions at [phone] Medication Requests: Prescriptions are not filled on [...] Filed: 09/12/131716 Note Time: 09/12/13739 Status: Signed Hair Spinning Machine Operator: Erich Kirkland MD (Physician) NAME: ANASTASIYA GRANADOS MR#: [id number] CSN: [id number] AUTHENTICATING CLINICIAN: Erich Kirkland MD CONFIRM #: [...] magnetic resonance imaging, which was accomplished at [facility] through [facility] in [place]. His scan was from 08/23/2013. The MR [...] painful. He has the most significant painwith [place]'s type testing. Any type of labral provocation [...] Primary documented in this encounter Care Teams Four Horse Hitch Driver Relationship Specialty Start Date End Date Aydin Morales MD PCP - General 08/29/13 1001 [facility] 100 [place] [address] documented as of this encounter
--- OUTSIDE RECORDS SUMMARY | 2021-12-08 23:36 | XMS_ITS | Encounter Summary ---
:1975 Author Organization [facility] Address [address], [place] [address] Care Team Providers Name Role Phone Aydin Morales MD Primary Care Provider Reason for Visit Reason Comments Refill Encounter Details Date Type Department Care Team Description 12/20/2013 Refill [facility] MYLA Mateus Villa MD Refill [address] [facility] [address] [place] [address] Dr Llanos [place] 5543 1 [place] [address] [phone] (Wo rk) Social History Tobacco Use Types [...] on filedocumented in this encounter Care Teams Distillery Miller Relationship Specialty Start Date End Date Aydin Morales MD PCP - General 08/29/13 1001 [facility] 100 [place] [address] documented as of this encounter
--- OUTSIDE RECORDS SUMMARY | 2021-12-08 23:36 | XMS_ITS | Encounter Summary ---
:1975 Author Organization [facility] Address [address], [place] [address] Care Team Providers Name Role Phone Aydin Morales MD Primary Care Provider Reason for Visit Reason Comments Refill Encounter Details Date Type Department Care Team Description 10/23/2013 Refill [facility]LA Erich Garrison MD Refill [address] [facility] [address] [place] [address] [place] [address]43 1 [place] [address] [phone] (Wo rk) Social History Tobacco Use Types Packs/Day Years Used Date Smoking Tobacco: Never Assessed Sex Assigned at Date Recorded Not on file documented as of this encounter Nursing Notes Laurie Mercer - 10/24/2013 2:[address] Kirkland approves script for [place]. Patient's preferred pharmacy, [facility] in [place], [place]. Script called into pharmacy. Patient contacted and notified. Issue resolved. documented in this encounter Plan of Treatment Not on filedocumented as of this encounter Visit Diagnoses Not on filedocumented in this encounter Care Teams Track Dresser Relationship Specialty Start Date End Date Aydin Morales MD PCP - General 08/29/13 1001 [facility] 100 [place] [address] documented as of this encounter
--- OUTSIDE RECORDS SUMMARY | 2021-12-08 23:36 | XMS_ITS | Encounter Summary ---
:1975 Author Organization [facility] Address [address], [place] [address] Care Team Providers Name Role Phone Aydin Morales MD Primary Care Provider Encounter Details Date Type Department Care Team Description 12/19/2013 Notes/Orders [facility] MYLA Mateus Villa MD [address] [facility] [address] [place] [address] Dr Llanos [place] [address] 1 [place] [address] [phone] (Wo rk) Social History Tobacco Use Types Packs/Day Years Used Date Smoking Tobacco: Never Assessed Sex Assigned at Date Recorded Not on file documented as of this encounter Plan of Treatment Not on filedocumented as of this encounter Visit Diagnoses Not on filedocumented in this encounter Care Teams Gold Tooler Relationship Specialty Start Date End Date Aydin Morales MD PCP - General 08/29/13 1001 [facility] 100 [place], [place] [address] documented as of this encounter
--- OUTSIDE RECORDS SUMMARY | 2021-12-08 23:36 | XMS_ITS | Encounter Summary ---
:1975 Author Organization [facility] Address [address], [place] [address] Care Team Providers Name Role Phone Aydin Morales MD Primary Care Provider Reason for Visit Reason Comments Refill Encounter Details Date Type Department Care Team Description 12/22/2013 Refill [facility] MYLA Mateus Villa MD Refill [address] [place] [address] Dr Llanos [place] [address]43 1 [place] [address] [phone] (Wo rk) Social History Tobacco Use Types Packs/Day Years Used Date Smoking Tobacco: Never Assessed Sex Assigned at Date Recorded Not on file documented as of this encounter Nursing Notes Bri Mari - 12/22/2013 11:25 AM CDT Rx left at hotel front desk clerk for pick and shovel worker. Pt. notified. Bri Mari - 12/22/2013 9:40 [...] on filedocumented in this encounter Care Teams Fitter Placer Relationship Specialty Start Date End Date Aydin Morales MD PCP - General 08/29/13 1001 [facility] 100 [place] [address] documented as of this encounter
--- OUTSIDE RECORDS SUMMARY | 2021-12-08 23:36 | XMS_ITS | Encounter Summary ---
:1975 Author Organization [facility] Address [address], [place] [address] Care Team Providers Name Role Phone Aydin Morales MD Primary Care Provider Encounter Details Date Type Department Care Team Description 12/19/2013 Hospital Encounter [facility] Shanique Elizabeth MD [facility] [address] [place] [address] 8100 [place] [address] [place], [place] [address] [phone] Social History Tobacco Use Types Packs/Day Years [...] 12/19/13 153 Note Time: 12/19/131534 Status: Signed Sales Account Coordinator: Mateus Piña MD (Physician) [facility] Patient Name: Juan Ramon Granados Procedure [...] 2 weeks. Procedure Code(s): --- Professional --- 29144, RT, Arthroscopy, shoulder, surgical; repair of SLAP lesion 08457, Tenodesis of long tendon of biceps Diagnosis Code(s): --- Professional --- 840.7, Superior glenoid labrum lesion 726.12, Bicipital tenosynovitis CPT (R) 2012 [employer]. All Rights Reserved. The codes documented in this report are preliminary and upon certified procedural coder review may be revised to meet [...] Nam MD - 12/19/2013 4:40 PM CDT [facility] 8100 [place] [address] Surgical Summary 12/19/2013 Admission Juan Ramon Granados MRN: : [id number] Admission Information Department Dept Phone Hosp. Acct. # 12/19/2013 10:12 AM [facility] Surgery [facility] [phone] Admitting Provider Information Provider Pager Service Admission [...] doses are changed, or new medications (including grbj-rss-xzaokhv products) are added. You are also encouraged to carry medication information at all times in the event of emerge ncy situations. Nurse initals that this was reviewed with the patient. Future Appointments Provider Department Dept Phone 01/04/2014 10:00 AM Mitch Boone [facility] [phone] Patient Belongings Most Recent Value Patient Belongings Clothing Plastic Bag Plastic Bag Sent Safe Patient Instructions None Appointments for Next 60 Days 01/04/2014 10:00 AM POST-OP [facility] [[id number]] 30 min Please arrive 15 minutes prior [...] Take [address] to the [facility] [place] [facility] exit. Turn left on [address] and proceed to [address] [place] [address] Turn left at the stoplight on [address] Turn left on [address] and follow it to the [facility] parking ramp. From the West: Take [address] to the [facility] [place] [facility] exit. Turn right on [address] and proceed to [address] [place] [address] Turn left at the stoplight on [address] Turn left on [address] and follow it to the [facility] parking ramp. ` Nurse Signature: Date: ` Patient Signature: Date: documented in this encounter Plan of Treatment Not on filedocumented as of this encounter Visit Diagnoses Not on filedocumented in this encounter Care Teams Printing Press Operator Relationship Specialty Start Date End Date yAdin Morales MD PCP - General 08/29/13 1001 [facility] 100 [place] [address] documented as of this encounter
--- OUTSIDE RECORDS SUMMARY | 2021-12-08 23:36 | XMS_ITS | Encounter Summary ---
:1975 Author Organization [facility] Address [address] [place] [address] Care Team Providers Name Role Phone Aydin Morales MD Primary Care Provider Encounter Details Date Type Department Care Team Description 09/01/2013 Imaging [facility] Pain in joint, shoulder 8100 [place], [place] [address] Social History Tobacco Use Types [...] region documented in this encounter Care Teams Trim Sawyer Relationship Specialty Start Date End Date Aydin Morales MD PCP - General 08/29/13 1001 [facility] 100 [place] [address] documented as of this encounter
--- OUTSIDE RECORDS SUMMARY | 2021-12-08 23:36 | XMS_ITS | Encounter Summary ---
:1975 Author Organization [facility] Address [address] [place] [address] Care Team Providers Name Role Phone Aydin Morales MD Primary Care Provider Reason for Visit Procedure/Equipment (Routine) - Closed Specialty Diagnoses / Procedures Referred By Contact Refer red To Contact Diagnoses Chronic pain of right knee Isaac Peña MD Procedures MR Knee Rt WO IV Cont [address] [place], [place] [address] Referral ID Status Reason Start Date Expiration Date Visits Requ ested Visits Authorized [id number] Closed 09/19/2020 12/19/2021 1 1 Encounter Details Date Type Department Care Team Description 10/08/2020 Ancillary [facility] Radiology MRI Isaac Peña MD Chronic pain of Procedure 8100 [facility] [address] [place] [address] [address] [place] [address] [phone] Social History Tobacco Use Types Packs/Day Years [...] knee documented in this encounter Care Teams Orchid Worker Relationship Specialty Start Date End Date Aydin Morales MD PCP - General 08/29/13 1001 [facility] 100 [place] [address] documented as of this encounter
--- OUTSIDE RECORDS SUMMARY | 2021-12-08 23:36 | XMS_ITS | Encounter Summary ---
:1975 Author Organization [facility] Address [address] [place] [address] Care Team Providers Name Role Phone Aydin Morales MD Primary Care Provider Reason for Visit Reason Comments Knee Problem right MRI results Encounter Details Date Type Department Care Team Description 11/21/2020 Office Visit [facility] Isaac Peña MD Chronic pain of right knee (Primary Dx); CENTER [address] [place] [address] Complex tear of medial meniscus of right knee as current injury, initial encounter; [address] [place], [place] History of arthroscopy of ri ght knee; [place] [address] Primary osteoarthritis of right knee; [address] Sprain [...] 11/21/2020 9:20 AM CDT Juan Ramon Granados [id number] 1975 [facility] Orthopaedic Surgery Follow-Up 11/21/2020 Interval History: [...] sequela documented in this encounter Care Teams Tractor Crane Engineer Relationship Specialty Start Date End Date Aydin Morales MD PCP - General 08/29/13 1001 [facility] 100 [place] [address] documented as of this encounter
--- OUTSIDE RECORDS SUMMARY | 2021-12-08 23:36 | XMS_ITS | Encounter Summary ---
:1975 Author Organization [facility] Address [address], [place] [address] Care Team Providers Name Role Phone Aydin Morales MD Primary Care Provider Reason for Visit Reason Comments Refill Encounter Details Date Type Department Care Team Description 12/28/2013 Refill [facility] MYLA Mateus Villa MD Refill [address] [facility] [address] [facility] [place], [place] [address] 1 [place] [address] [phone] (Wo rk) Social History Tobacco Use Types Packs/Day Years Used Date Smoking Tobacco: Never Assessed Sex Assigned at Date Recorded Not on file documented as of this encounter Nursing Notes Bri Mari - 12/29/2013 4:04 PM CDT Rx left at front edger for picker machine operator. Pt. notified. Bri Mari - 12/29/2013 2:20 PM CDT Pt. called again to inquire about Percocet refill as he has to travel from [place]. Eden Gunter RN - 12/28/2013 8:49 AM [...] on filedocumented in this encounter Care Teams Carousel Operator Relationship Specialty Start Date End Date Aydin Morales MD PCP - General 08/29/13 1001 [facility] 100 [place] [address] documented as of this encounter
--- OUTSIDE RECORDS SUMMARY | 2021-12-08 23:36 | XMS_ITS | Encounter Summary ---
:1975 Author Organization [facility] Address [address] [place] [address] Care Team Providers Name Role Phone Aydin Morales MD Primary Care Provider Reason for Visit Reason Comments Refill Encounter Details Date Type Department Care Team Description 12/01/2013 Refill [facility] MYLA TER Erich Kirkland MD Refill [address] [facility] [address] [place] [address] [place] [address] 1 [place] [address] [phone] (Wo rk) Social History Tobacco Use Types Packs/Day Years Used Date Smoking Tobacco: Never Assessed Sex Assigned at Date Recorded Not on file documented as of this encounter Nursing Notes Isabel Sanchez RN - 12/01/2013 1:44 PM CDT called to the pharmacy and left message on voicemail for the refill of Alsen. Bri Mari - 12/01/2013 10:30 AM CDT [...] by pharmacy fax for the following medication: Alsen, #40 last dispensed on 11/17. documented in this encounter Plan of Treatment Not on filedocumented as of this encounter Visit Diagnoses Not on filedocumented in this encounter Care Teams Pay Station Department Manager Relationship Specialty Start Date End Date Aydin Morales MD PCP - General 08/29/13 1001 [facility] 100 [place] [address] documented as of this encounter
--- OUTSIDE RECORDS SUMMARY | 2021-12-08 23:36 | XMS_ITS | Encounter Summary ---
:1975 Author Organization [employer] Address [address] [place] [address] Care Team Providers Name Role Phone Aydin Morales MD Primary Care Provider Reason for Visit Reason Comments QUESTIONS, GENERAL Encounter Details Date Type Department Care Team Description 10/14/2020 Telephone [facility]LA Isaac Bentley MD QUESTIONS, GENERAL [address] [facility] [address] [place] [address] [place] [address] 1 [place] [address] [phone] (Wo rk) Social History Tobacco Use Types [...] seen for this recently?: 09.19.20 Dr. Peña [[facility]: If yes, please include date and provider.] Is it okay to leave detailed message on your voicemail? Yes [[facility]t [facility]: If this call is after 3 [...] on filedocumented in this encounter Care Teams Mill Tender Warm Up Relationship Specialty Start Date End Date Aydin Morales MD PCP - General 08/29/13 1001 [facility] 100 [place] [address] documented as of this encounter
--- OUTSIDE RECORDS SUMMARY | 2021-12-08 23:36 | XMS_ITS | Encounter Summary ---
:1975 Author Organization [facility] Address [address] [place] [address] Care Team Providers Name Role Phone Aydin Morales MD Primary Care Provider Reason for Referral Procedure/Equipment (Routine) - Incomplete Specialty Diagnoses / Procedures Referred By Contact Refer red To Contact Procedures Isaac Peña MD [facility] Arthroscopy Knee Rt [address] [place] [address] Referral ID Status Reason Start Date Expiration Date Visits V isits Requested Authorized [id number] Incomplete 12/09/2020 03/10/2022 1 1 Encounter Details Date Type Department Care Team Description 12/09/2020 Notes/Orders [facility] Barbi Vega 8100 [place], [place] [address] Social History Tobacco Use Types [...] on filedocumented in this encounter Care Teams Pet Training Instructor Relationship Specialty Start Date End Date Aydin Morales MD PCP - General 08/29/13 1001 [facility] 100 [place] [address] documented as of this encounter
--- OUTSIDE RECORDS SUMMARY | 2021-12-08 23:36 | XMS_ITS | Encounter Summary ---
:1975 Author Organization [facility] Address [address] [place] [address] Care Team Providers Name Role Phone Aydin Morales MD Primary Care Provider Reason for Visit Procedure/Equipment (Routine) - Incomplete Specialty Diagnoses / Procedures Referred By Contact Refer red To Contact Diagnoses Chronic pain of right knee Isaac Peña MD Procedures XR Knee Lt 1-2 Views Comparison [address] [place] [address] 1 Referral ID Status Reason Start Date Expiration Date Visits V isits Requested Authorized [id number] Incomplete 09/19/2020 12/19/2021 1 1 Encounter Details Date Type Department Care Team Description 09/19/2020 Ancillary [facility]iology Isaac Peña MD Chronic pain of Procedure [address] [place] [address] [place] [address] [phone] Social History Tobacco Use Types Packs/Day Years [...] knee documented in this encounter Care Teams Automobile Relocation Engineer Relationship Specialty Start Date End Date Aydin Morales MD PCP - General 08/29/13 1001 [facility] 100 [place] [address] documented as of this encounter
--- OUTSIDE RECORDS SUMMARY | 2021-12-08 23:36 | XMS_ITS | Encounter Summary ---
:1975 Author Organization [facility] Address [address] [place] [address] Care Team Providers Name Role Phone Aydin Morales MD Primary Care Provider Reason for Visit Reason Comments Refill Encounter Details Date Type Department Care Team Description 11/16/2013 Refill [facility] Erich Kirkland MD Refill [address] [facility] [address] [place] [address] [place] [address]43 1 [place] [address] [phone] (Wo rk) Social History Tobacco Use Types [...] refill of hispain meds. He lives in [place] and prefers not to come in to parts picker a prescription, he would likea prescription for [place]. Last prescription for [place] was on 11/07. Will pend to Dr. Kirkland for approval. documented in this encounter Plan of Treatment Not on filedocumented as of this encounter Visit Diagnoses Not on filedocumented in this encounter Care Teams Reconciliation Machine Operator Relationship Specialty Start Date End Date Aydin Morales MD PCP - General 08/29/13 1001 [facility] 100 [place] [address] documented as of this encounter
--- OUTSIDE RECORDS SUMMARY | 2021-12-08 23:36 | XMS_ITS | Encounter Summary ---
:1975 Author Organization [facility] Address [address] [place] [address] Care Team Providers Name Role Phone Aydin Morales MD Primary Care Provider Reason for Referral Procedure/Equipment (Routine) - Closed Specialty Diagnoses / Procedures Referred By Contact Refer red To Contact Diagnoses Chronic pain of right knee Isaac Peña MD Procedures MR Knee Rt WO IV Cont [address] [facility] [address] [place] [address] Referral ID Status Reason Start Date Expiration Date Visits Requ ested Visits Authorized [id number] Closed 09/19/2020 12/19/2021 1 1 Procedure/Equipment (Routine) - Incomplete Specialty Diagnoses / Procedures Referred By Contact Refer red To Contact Diagnoses Chronic pain of right knee Isaac Peña MD Procedures XR Knee Lt 1-2 Views Comparison [address] [facility] [address] [place] [address] Referral ID Status Reason Start Date Expiration Date Visits V isits Requested Authorized [id number] Incomplete 09/19/2020 12/19/2021 1 1 Procedure/Equipment (Routine) - Incomplete Specialty Diagnoses / Procedures Referred By Contact Refer red To Contact Diagnoses Chronic pain of right knee Isaac Peña MD Procedures XR Knee Rt 3 Views 8100 [facility] [place] [address] Referral ID Status Reason Start Date Expiration Date Visits V isits Requested Authorized [id number] Incomplete 09/19/2020 12/19/2021 1 1 Reason for Visit Reason Comments Knee Problem right knee Encounter Details Date Type Department Care Team Description 09/19/2020 Office Visit [facility] Isaac Peña MD Chronic pain of right knee (Primary Dx); CENTER [address] [place] [place] [address] History of arthroscopy of right knee [facility] [facility] [place] [address] [phone] (Wo rk) Social History Tobacco Use Types [...] 09/19/2020 11:00 AM CDT Juan Ramon Granados [id number] 1975 [facility] Orthopaedic Surgery Consultation 09/19/2020 Chief [...] Current Medications: Lexapro Reviewed and updated in [facility] Past Medical History/Past Surgical History: Anxiety Right knee arthroscopy (2016, [facility]) Arthroscopy, right shoulder (12/19/2013) Social History: Patient works at [employer] in [place], employed for 25 years. Denies illicit drug use or tobacco products, and he drinks alcohol occasionally. Exercises weekly. Enjoys intramural softball. . Lives with and son. Always wears seatbelt. Review of Systems: A 15-point review of systems obtained and is significant for anxiety and as mentioned above. Family History: [place] The General Medical History Form dated 09/19/2020 was reviewed with the patient, updated, and signed;this is located in [facility] in [facility]. This will act as supplement to this [...] knee documented in this encounter Care Teams Tile Trimmer Relationship Specialty Start Date End Date Aydin Morales MD PCP - General 08/29/13 1001 [facility] [address] [place] [address] documented as of this encounter
--- OUTSIDE RECORDS SUMMARY | 2021-12-08 23:36 | XMS_ITS | Encounter Summary ---
:1975 [facility] Organization [facility] Address [address] [place] [address] Care Team Providers Name Role Phone Aydin Morales MD Primary Care Provider Reason for Visit Reason Comments SHOULDER PAIN Encounter Details Date Type Department Care Team Description 10/04/2013 Office Visit [facility] Erich Kirkland MD Pain in joint, CENTER [address] [place] [address] shoulder region 8100 [place], [place] [address] [phone] (Wo rk) Social History Tobacco Use Types Packs/Day Years Used Date Smoking Tobacco: Never Assessed Sex Assigned at Date Recorded Not on file documented as of this encounter Patient Instructions Patient InstructionsKMagdy nguyen OA - 10/04/2013 12:[address] Erich Kirkland MD Orthopaedic Surgeon Pattern Clerk: Patricia Matson Please contact Patricia for all administrative questions at [phone] Please contact Nurse Nicole for all medical related questions at [phone] Medication Requests: Prescriptions are not filled on Weekends or on Weekdays after 3:00PM For all medication refills: Request a refill using MyChart or contact your Pharmacy F/U as discussed documented in this encounter Progress Notes Erich Kirkland MD - 10/05/2013 3:13 PM CDT Progress Notes signed by Erich Kirkland MD at 10/10/13 1301 Author: Erich Kirkland MD Service: (none) Author Type: Physician Filed: 10/10/13 1306 Note Time: 10/10/13809 Status: Signed Membership Correspondent: Erich Kirkland MD (Physician) NAME: JUAN RAMON GRANADOS MR#: [id number] CSN: [id number] AUTHENTICATING CLINICIAN: Erich Kirkland MD CONFIRM #: [...] region documented in this encounter Care Teams Weights And Measures Sealer Relationship Specialty Start Date End Date Carmen, Aydin G, MD PCP - General 08/29/13 1001 [facility] [address] [address] documented as of this encounter
--- OUTSIDE RECORDS SUMMARY | 2021-12-08 23:36 | XMS_ITS | Encounter Summary ---
:1975 Author Organization [facility] Address [address], [place] [address] Care Team Providers Name Role Phone Aydin Morales MD Primary Care Provider Encounter Details Date Type Department Care Team Description 12/10/2020 Surgery [facility] Isaac Peña MD RIGHT knee 8100 [facility] Driv e [address] [facility] [address] arthroscopic partial [place], [place] [address] [place], [place] medial meniscectomy, [address] loose body removal, (Wo rk) partial synovectomy, [...] 12/10/2020 : 1975 SURGEON: Isaac Peña MD SILK SCREEN LAYOUT DRAFTER: Manpreet Dixon MD (Orthopaedic Sports Medicine Fellow) Dede Mccall PA-C There was no resident available to assist with this case. A skilled assistant boys track coach was required for positioning, prepping and draping, [...] Component Value Ref Test Analysis Performed At [facility] Method Time Signature Case Report Surgical Pathology ?Case: [id number] ? 12/11/2020 [facility] Authorizing Provider: ??Isaac Morrow MD ? Collected: ? 12/10/2020 1415 ? 10:06 AM LABO RATORY Ordering Location: ? [facility] ?Received: ?12/10/2020 1437 ? CDT Pathologist: ? Jules Maldonado MD ? Specimen: ?Knee, right, right knee synovium ? FINAL Synovium, right knee, biopsies: 12/12/19 21 [facility] Electronically DIAGNOSIS Fragments of synovium with c hronic inflammation and degenerating cartilage. 10:06 AM LABORATORY signed by YVONNE Maldonado MD on 12/11/2020 at 10:05 AM Clinical Knee pain, right 12/11/2020 [facility] Information 10:06 AM LABORATORY CDT Microscopic Microscopic 12/11/2020 [facility] Description examination is 10:06 AM LABORATORY performed. CDT Gross A: 12/11/2020 [facility] Description The specimen is received in formalin and labeled with the patient's name and Knee, right, right knee synovium . The specimen consists of 1.5 x 1.1 x 0.3 cm of mottled hurtado-red rubbery tissue fragments. 10:06 AM LABORATORY The specimen is filtered and entirely submitted 1 cassette. DV CDT Embedded 12/11/2020 [facility] Images 10:06 AM LABORATORY CDT Specimen Anatomical Collection Method Collection Time Receive d Time (Source) Location / / Volume Laterality Tissue ENTIRE KNEE REGION 12/10/2020 2:15 PM 07/2020 2:37 / Unknown CDT PM CDT Isaac Peña MD LAB PATHOLOGY Performing Organization Address City/State/ZIP Code Phon e Number [facility] [address] [place] [address] documented in this encounter Visit Diagnoses Diagnosis [...] PM CDT 50 mcg 25-50 mcg, Intravenous, [id number], Other, Moderate to Severe Pain (pain score [...] (DEMEROL) injection 12.5 mg 12.5 mg, Intravenous, [id number], Shiverin g, Starting on Wed12/10/20 at 1230, Until Wed12/10/20 at 1817, For 2 doses, Maximu m cumulative dose is 25 mg. Do not give to patients receiving MAO inhibitors (e.g. phenelzine (NA RDIL), tranylcypromine (PARNATE), selegiline (ELDEPRYL))., PACU/Recovery midazolam (VERSED) injection 0.5-1 mg 0.5-1 mg, Intravenous, [id number], Anxiety , Starting on Wed12/10/20 at 1230, [...] 1333 (Started - Provider: Kristy Penn APRN, SILK CONDITIONER) 2 g, Intravenous, Administer over 30 Min [...] Provider: Yasmine Yeung RN) 25-50 mcg, Intravenous, [id number], Other, Moderate to Severe Pain (pain score [...] (DEMEROL) injection 12.5 mg 12.5 mg, Intravenous, [id number], Shiverin g, Starting on Wed12/10/20 at 1230, Until Wed12/10/20 at 1818, For 2 doses, Maximum cumulative dose is 25 mg. Do not give to patients receiving MAO inhibitors (e. g. phenelzine (NARDIL), tranylcypromine (PARNATE), selegiline (ELDEPRYL))., PACU/Recovery midazolam (VERSED) injection 0.5-1 mg 0.5-1 mg, Intravenous, [id number], Anxiety , Starting on Wed12/10/20 at 1230, [...] MG/ML injection 1435 (Given - Provider: Manpreet Dxion MD) ONCE PRN, Starting on Wed12/10/20 at 1435, Until Wed12/10/20 at 1818, Intra-op documented in this encounter Care Teams Biometrics Analyst Relationship Specialty Start Date End Date Aydin Morales MD PCP - General 08/29/13 1001 [facility] [address] [address] documented as of this encounter
--- OUTSIDE RECORDS SUMMARY | 2021-12-08 23:36 | XMS_ITS | Encounter Summary ---
:1975 [facility] Organization [facility] Address [address], [place] [address] Care Team Providers Name Role Phone Aydin Morales MD Primary Care Provider Reason for Visit Reason Comments Refill Encounter Details Date Type Department Care Team Description 01/04/2014 Refill [facility] MYLA Mateus Villa MD Refill [address] [facility] [address] [facility] [place] [address] 1 [place] [address] [phone] (Wo rk) Social History Tobacco Use Types Packs/Day Years Used Date Smoking Tobacco: Never Assessed Sex Assigned at Date Recorded Not on file documented as of this encounter Plan of Treatment Not on filedocumented as of this encounter Visit Diagnoses Not on filedocumented in this encounter Care Teams Warehouser Relationship Specialty Start Date End Date Aydin Morales MD PCP - General 08/29/[address] [place] [address] 100 [place], [place] [address] documented as of this encounter
--- OUTSIDE RECORDS SUMMARY | 2021-12-08 23:36 | XMS_ITS | Encounter Summary ---
:1975 Author Organization [facility] Address [address], [place] [address] Care Team Providers Name Role Phone Aydin Morales MD Primary Care Provider Encounter Details Date Type Department Care Team Description 12/18/2013 Notes/Orders [facility] Mateus Piña, Seth y, elective CENTER (Primary Dx) [address] [facility] [address] [place] [address] Dr [place] [address] [place], [place] [phone] (Wo rk) Social History Tobacco Use Types Packs/Day Years Used Date Smoking Tobacco: Never Assessed Sex Assigned at Date Recorded Not on file documented as of this encounter Plan of Treatment Not on filedocumented as of this encounter Visit Diagnoses Diagnosis Surgery, elective - Primary Unspecified elective surgery for purpose s other than remedying health states documented in this encounter Care Teams Track Repair Supervisor Relationship Specialty Start Date End Date Aydin Morales MD PCP - General 08/29/13 1001 [facility] [address] 100 [place] [address] documented as of this encounter
--- OUTSIDE RECORDS SUMMARY | 2021-12-08 23:36 | XMS_ITS | Encounter Summary ---
:1975 Author [facility] Address [address] [place] [address] Care Team Providers Name Role Phone Aydin Morales MD Primary Care Provider Reason for Visit Reason Comments Refill Encounter Details Date Type Department Care Team Description 01/29/2014 Refill [facility] MYLA TER Mateus Piña MD Refill [address] [facility] [address] [facility] [place], [place] [address] [place] [address] [phone] (Wo rk) Social History Tobacco Use Types Packs/Day Years Used Date Smoking Tobacco: Never Assessed Sex Assigned at Date Recorded Not on file documented as of this encounter Nursing Notes Renee Stevens RN - 01/29/2014 2:06 PM CST Refill approved per provider and script placed at Line Director desk. Pt notified of refill approval andalso message from provider that this would be the last refill for him. Pt verbalized understanding. GHT AIR BRAKE FITTER Renee Stevens RN - 01/29/2014 11:24 AM CST Pt called to request a Maxwell refill; his last refill was 12/23/13 for 40#. Pt is S/P Right Shoulder Arthroscopic SLAP; DOS was 12/19/13. Please approve or advise. GHT AIR BRAKE FITTER documented in this encounter Plan of Treatment Not on filedocumented as of this encounter Visit Diagnoses Not on filedocumented in this encounter Care Teams Instrument Setter Relationship Specialty Start Date End Date Aydin Morales MD PCP - General 08/29/13 1001 [facility] [address] [address] documented as of this encounter
--- OUTSIDE RECORDS SUMMARY | 2021-12-08 23:36 | XMS_ITS | Encounter Summary ---
:1975 [facility] Address [address], [place] [address] Care Team Providers Name Role Phone Aydin Morales MD Primary Care Provider Encounter Details Date Type Department Care Team Description 12/07/2013 Orders Only [facility] Mateus Villa MD [address] [facility] [address] [place] [address] [address] [place] [address] [address] [place] [address] [phone] (Wo rk) Social History Tobacco Use Types Packs/Day Years Used Date Smoking Tobacco: Never Assessed Sex Assigned at Date Recorded Not on file documented as of this encounter Plan of Treatment Not on filedocumented as of this encounter Visit Diagnoses Not on filedocumented in this encounter Care Teams Wireless Communications Engineer Relationship Specialty Start Date End Date Aydin Morales MD PCP - General 08/29/13 1001 [facility] 100 [place] [address] documented as of this encounter
[2021-12-08 23:37] VITALS: O2SAT 98
[2021-12-08 23:39] VITALS: RESP 16
[2021-12-08 23:42] LABS: Basophils Absolute Auto 0.07 K/uL (0.00-0.30); Basophils Percent Auto 1.3 % (0.0-3.0); Eosinophils Absolute Auto 0.18 K/uL (0.00-0.50); Eosinophils Percent Auto 3.4 % (0.0-7.0); Hematocrit 47.5 % (37.0-53.0); Lymphocytes Absolute Auto 1.45 K/uL (0.90-2.90); Lymphocytes Percent Auto 27.5 % (20-44); Mean Corpuscular HGB Conc 36 gm/dL (32-36); Mean Corpuscular Hemoglobin 34 pg (26-34); Mean Corpuscular Volume 96 fL (80-100); Monocytes Percent Auto 6.6 % (0.0-11.0); Neutrophils Absolute Auto 3.22 K/uL (1.7-7.0); Neutrophils Percent Auto 61.2 % (42.0-72.0); Platelet Count* 231 K/uL (140-440); RDW Coefficient of Variation % 13.4 % (11.5-15.5); Red Blood Count 4.94 m/uL (4.30-5.90); White Blood Count* 5.27 K/uL (4.50-11.00)
[2021-12-08 23:55] LABS: Albumin* 4.2 g/dL (3.3-5.0); Chloride* 105 mmol/L (96-114); Sodium* 139 mmol/L (135-149)
[2021-12-08 23:57] LABS: Amylase* 61 U/L (18-89); Carbon Dioxide* 21 mmol/L (20-32); Creatinine* 0.5 mg/dL (0.5-1.5); Est. Creatinine Clearance* 190.61; Estimated Glomerular Filt Rate 127 ml/min
[2021-12-08 23:58] LABS: Alanine Aminotransferase* 231 U/L (4-50); Alkaline Phosphatase* 174 U/L (40-150); Aspartate Amino Transferase* 295 U/L (12-35); Bilirubin Total* 0.9 mg/dL (0.1-1.5); Blood Urea Nitrogen* 5 mg/dL (5-24); Calcium* 8.7 mg/dL (8.4-10.6); Glucose* 108 mg/dL (60-115); Lipase* 47 U/L (23-300); Total Protein* 7.1 g/dL (6.0-8.3)
[2021-12-08 23:59] LABS: Ethanol* 0.21 % (0.01-0.03)
[2021-12-09] VITALS: BP 140/93; PULSE 69; RESP 16; O2SAT 93
[2021-12-09 00:12] LABS: Slide Review Reflex No
[2021-12-09] MEDS: POTASSIUM CHLORIDE 10 MEQ CAPSULE ER 20 MEQ PO (00:16)
[2021-12-09 00:30] VITALS: BP 141/97; PULSE 71; RESP 16; O2SAT 93
--- NOTE | 2021-12-09 00:45 | ED.NURSE ---
Addendum entered by Octavio Doll RN 12/09/21 01:11: i agree with this note. warehouse incentive selector and nurse surveillance manager consulted. Original Note: Patient education on not being able to drive home due to narc admin and etoh level by this RN and Octavio RN, pt verbalized understanding and stated he will call his , pt stated on way prior to discharge, pt went to get insty med and security noted on camera pt got in own car and left, attempted to call pt , no answer. MD Vale updated.
== END 2021-12-09 00:51 | disposition home or self-care (01) ==
PROVIDERS: Emergency Provider Internal Medicine
DX: K70.9 Alcoholic liver disease, unspecified (principal); F10.229 Alcohol dependence with intoxication, unspecified; Y90.1 Blood alcohol level of 20-39 mg/100 ml
CPT/HCPCS: 36415; 80053; 82077; 82150; 83690; 85025; 94761; 96361; 96374; 96375; 99283; 99284; A9270; J1170; J2405; J7030

== ENCOUNTER 2022-01-27 10:09 | Emergency (ER) | payer OTHER, SELFPAY ==
[2022-01-27 10:29] VITALS: BP 172/122; PULSE 79; RESP 18; TEMP 36.9; O2SAT 96; BMI 28.8
[2022-01-27] MEDS: ONDANSETRON 2 MG/ML inj 4 MG IVP (11:16)
[2022-01-27] MEDS: PANTOPRAZOLE SODIUM 40 MG INJ IVP (11:16)
[2022-01-27] MEDS: 0.9 % SODIUM CHLORIDE 1000 ml 1,000 ML IV (11:17)
[2022-01-27 11:32] LABS: Basophils Absolute Auto 0.05 K/uL (0.00-0.30); Basophils Percent Auto 0.6 % (0.0-3.0); Eosinophils Absolute Auto 0.11 K/uL (0.00-0.50); Eosinophils Percent Auto 1.2 % (0.0-7.0); Hematocrit 42.9 % (37.0-53.0); Hemoglobin* 15.2 gm/dL (13.5-17.5); Immature Granulocytes Abs Auto 0.01 K/uL (0.00-0.30); Immature Granulocytes Pct Auto 0.1 %; Lymphocytes Percent Auto 16.6 % (20-44); Mean Corpuscular HGB Conc 35 gm/dL (32-36); Mean Corpuscular Hemoglobin 35 pg (26-34); Mean Corpuscular Volume 99 fL (80-100); Monocytes Percent Auto 5.6 % (0.0-11.0); Neutrophils Percent Auto 75.9 % (42.0-72.0); Platelet Count* 204 K/uL (140-440); RDW Coefficient of Variation % 13.3 % (11.5-15.5); Red Blood Count 4.35 m/uL (4.30-5.90); White Blood Count* 8.85 K/uL (4.50-11.00)
[2022-01-27 11:33] LABS: Slide Review Reflex No
[2022-01-27 11:45] LABS: Chloride* 105 mmol/L (96-114)
[2022-01-27 11:46] LABS: Potassium* 3.2 mmol/L (3.6-5.1); Sodium* 137 mmol/L (135-149)
[2022-01-27 11:47] LABS: INR 1.01 (0.91-1.10); Prothrombin Time 13.9 Seconds
[2022-01-27 11:48] LABS: Amylase* 63 U/L (18-89); Bilirubin Direct* 0.2 mg/dL (0.0-0.5); Bilirubin Total* 1.2 mg/dL (0.1-1.5); Blood Urea Nitrogen* 7 mg/dL (5-24); Carbon Dioxide* 23 mmol/L (20-32); Creatinine* 0.5 mg/dL (0.5-1.5); Est. Creatinine Clearance* 184.61; Estimated Glomerular Filt Rate 127 ml/min; Partial Thromboplastin Time* 34 Seconds (23-33); Total Protein* 6.6 g/dL (6.0-8.3)
[2022-01-27 11:49] LABS: Alanine Aminotransferase* 200 U/L (4-50); Alkaline Phosphatase* 149 U/L (40-150); Aspartate Amino Transferase* 191 U/L (12-35); Calcium* 9.1 mg/dL (8.4-10.6); Glucose* 140 mg/dL (60-115); Lipase* 174 U/L (23-300)
[2022-01-27 11:50] LABS: Ethanol* 0.02 % (0.01-0.03)
--- OUTSIDE RECORDS SUMMARY | 2022-01-27 11:50 | XMS_ITS | Clinical Summary ---
:1975 Author Organization [facility] Address [address] [place] [address] Care Team Providers Name Role Phone Aydin [...] Years Used Date Smoking Tobacco: Every Day Cigarettes 0.5 Smokeless Tobacco: Never Alcohol Use Standard Drinks/Week Comments Yes 0 (1 standard drink = 0.6 oz pure curren tly drinking anything, beer alcohol) or white claws Sex Assigned at Date [...] (Cologuard) 1975 FIT 1975 FLEX SIG 1975 Pneumococcal Vaccine: 09/20/1981 Pediatrics (0 to 5 Years) and At-Risk Patients (6 to 64 Years) (1 - PCV) COLONOSCOPY 09/20/1985 COLORECTAL CANCER SCREENING 09/20/1985 HIV SCREENING 09/20/1990 HEPATITIS C SCREENING 09/20/1993 LIPID 09/20/2010 HEPATITIS B IMMUNIZATION (2 07/23/2014 06/25/2014 of 3 - Hep B Twinrix 3-dose series) COVID-19 Vaccine (2 - 08/03/2020 06/08/2020 Booster for Shelbie series) YEARLY PREVENTIVE VISIT 11/26/2020 11/27/2019 PHQ-2 (once per calendar 03/08/2021 year) INFLUENZA VACCINE (#1) 2021 11/27/2019, 02/24/2019, 04/01/2018, Additional history exists DTAP/TDAP/TD IMMUNIZATION 08/20/2022 08/20/2012, 03/22/2009 (3 - Td or Tdap) IPV IMMUNIZATION Aged Out No longer eligi ble based on patient 's age to complete this topic MENINGITIS IMMUNIZATION Aged Out No longe r eligible based on patient 's age to complete this topic Insurance Payer Benefit Plan / Subscriber ID Effective Phone Address T ype Group Dates [facility] [id number] 2020-Prese [phone] [address] 55 [facility] [facility] HEALTHCARE nt [address] [place] [phone] [facility] [id number] 2020-Prese [address] [place] [address] Juan Ramon Granados Personal/Family Self 1975 [address] (Home) [facility] [phone] Brodie [place] (Work) [id number] Juan Ramon Granados Behavioral Self [id number] (Home) [facility] [phone] Brodie [place] (Work) [phone] Advance Directives For more information, please contact: [phone] Latest Code Status on File Code Status Date Activated Date Inactivated Comments Full Code 10/20/2020 3:31 PM 10/23/2020 2:47 PM All basic an d advanced life-sustaining interventions are performed as zelalem ropriate Question Answer Comments Code status determined by: Discussion with patient/ legal de cision maker Code Status History Code Status Date Activated Date Inactivated Comments Full Code 10/19/2020 7:30 PM 10/20/2020 3:27 AM All basic an d advanced life-sustaining interventions are performed as zelalem ropriate Question Answer Comments Code status determined by: Unable to determine; FULL CODE un til documents or legal decision maker available Care Teams Optics Engineer Relationship Specialty Start Date End Date Aydin Morales MD PCP - General 11/01/09 1001 [facility] 100 [place] [address]
--- OUTSIDE RECORDS SUMMARY | 2022-01-27 11:51 | XMS_ITS | Encounter Summary ---
:1975 Author Organization [facility] Address [address] [place] [address] Care Team Providers Name Role Phone Aydin Morales MD Primary Care Provider Reason for Visit Reason Comments Scheduled Telephone Visit Follow-up Encounter Details Date Type Department Care Team Description 01/01/2022 Telemedicine [facility] Isaac Peña MD Rupture of anterior cruciate ligament of right knee, subsequent encounter (Primary Dx); CENTER [address] [place] [address] Primary osteoarthritis of right knee; [address] [place], [place] S/P right knee arthroscopy; [place] [address] Chronic pain of right knee; [address] Complex tear of medial menis cus of right knee as current injury, subsequent encounter Social History Tobacco Use Types Packs/Day Years Used Date Smoking Tobacco: Former Cigarettes Quit : 08/09/2013 Smokeless Tobacco: Never Alcohol Use Standard Drinks/Week Comments Yes 2 (1 standard drink = 0.6 oz pure alcoho l) Sex Assigned at Date Recorded Not on file documented as of this encounter Progress Notes Isaac Peña MD - 01/01/2022 12:00 PM CDT Juan Ramon Granados [id number] 1975 [facility] Orthopaedic Surgery Follow-Up 01/01/2022 Telephone visit: Dr. Peña was present at [facility] and the patient was present at home. Interval History: Juan Ramon Granados is a 46 y.o. male who was called via telephone for follow-up of his right knee. He was last seen on 08/25/21. Please refer to this note for further details. In the interval time period,we received a call from a primary care provider that knows him well to let us know that he was recently seen in the emergency department with alcohol intoxication. It was recommended to us that we postpone surgical intervention at this time. This was already done and this was a phone call to review his recent history. Physical Exam: Deferred. Assessment: 1. Pain and effusion, recurrent, right knee 2. ACL deficient, chronic, right knee 3. Arthroscopic revision partial medial meniscectomy, removal of loose body, trochlear chondroplasty, and partial synovectomy with synovial biopsy, right knee (DOS: 12/10/20) 4. Early/mild degenerative joint disease, right knee Plan: I called Mr. Granados today to acknowledge I was aware of some recent life events. We had a nice discussion today. We had recently had seen him and planned for an ACL reconstruction. I discussed with himthat I would like him to work on some lifestyle changes to make sure he is in improved health beforewe proceed with an elective surgery such as ACL reconstruction. He is in agreement with that. He will continue with activities to tolerance. I would like him to follow-up with me in a couple of months either virtually or in person so that we can talk about how things are going. Scribe Disclosure: I, Saundra Cooper, am serving as a scribe to document [...] as of this encounter Visit Diagnoses Diagnosis Rupture of anterior cruciate ligament of right knee, subsequent encounter - Primary Primary osteoarthritis of right knee Primary localized osteoarthrosis, lower leg S/P right knee arthroscopy Other postprocedural status Chronic pain of right knee Complex tear of medial meniscus of right knee as current injury, subsequent encounter documented in this encounter Care Teams Slot Shift Supervisor Relationship Specialty Start Date End Date Aydin Morales MD PCP - General 08/29/13 1001 [facility] 100 [place] [address] documented as of this encounter
--- OUTSIDE RECORDS SUMMARY | 2022-01-27 11:51 | XMS_ITS | Encounter Summary ---
:1975 Author Organization [facility] Address [address] [place] [address] Care Team Providers Name Role Phone Aydin Morales MD Primary Care Provider Reason for Visit Reason Comments Surgery Scheduling R knee Encounter Details Date Type Department Care Team Description 12/11/2021 Telephone [facility] Isaac Peña MD Surgery Scheduling (R CENTER [address] [facility] [address] knee) [address] [place], [place] [id number] (Wo rk) Social History Tobacco Use Types Packs/Day Years Used Date Smoking Tobacco: Former Cigarettes Quit : 08/09/2013 Smokeless Tobacco: Never Alcohol Use Standard Drinks/Week Comments Yes 2 (1 standard drink = 0.6 oz pure alcoho l) Sex Assigned at Date Recorded Not on file documented as of this encounter Nursing Notes Abigail Kulkarni - 12/11/2021 3:17 PM CDT AA called patient and explained that the last office visit in August did not provide surgery orders and said to follow up regarding further treatment. AA assisted with follow up appointment to come in for updated OV and potential surgery order and we can schedule from there. He understood and had no other questions Abigail Kulkarni 3:19 PM 12/11/2021 Capri Breaux - 12/11/2021 2:28 PM CDT Has the patient recently had surgery or an injury? No How may we help you today? Pt is calling to see if he can get surgery on his R knee before the end of the year. Describe your symptoms/concerns: Pt states that he has been doing PT and continues to have issues with clicking in the knee, the knee is giving out on him and he is not able to even push up on it. Please call the pt to advise at [phone]. When did the issue start: 2014 Have you been seen for this recently?: 08/25/21 Dr Peña [Supervisor Wet Room/Appt Center: If yes, please include date and provider.] Is it okay to leave detailed message on your voicemail? Yes [Supervisor Wet Room/Appt Center: If this call is after 3 p.m., communicate to patient: If we are not able to get back to you by the end of the day and your symptoms worsen please contact the Careline] documented in this encounter Plan of Treatment Not on filedocumented as of this encounter Visit Diagnoses Not on filedocumented in this encounter Care Teams Gas Dispatcher Relationship Specialty Start Date End Date Aydin Morales MD PCP - General 08/29/13 1001 [facility] 100 [place] [address] documented as of this encounter
--- OUTSIDE RECORDS SUMMARY | 2022-01-27 11:51 | XMS_ITS | Clinical Summary ---
:1975 Author Organization [facility] Address [address], [place] [address] Care Team Providers Name Role Phone Aydin [...] for each transition of care or referral. Excep Apps Allergies Active Allergy Reactions Severity Noted Date Comments Penicillins Rash Medium 08/30/2013 Medications Medication Sig Dispensed Refills Start Date End Date Status sennosides-docusate Take 1 Tablet by 10 Tablet 0 12/10/2020 Active sodium (SENOKOT S) mouth two times a 8.6-50 MG per tablet day. While taking narcotics Additional Information Patient not taking. Reported on 08/13/2021 acetaminophen (TYLENOL) 500 Take 500-1,000 mg by 0 0 03/24/2021 Active MG tablet mouth. alfuzosin (UROXATRAL) 10 MG alfuzosin ER 10 mg 0 Active 24 hour release tablet tablet,extended release 24 hr Calcium Carbonate (AKA Chew and swallow 500 mg by 0 Active OS-JOYCE) 1250 (500 Ca) MG mouth. chewable tablet FLUoxetine (PROZAC) 20 MG Take 20 mg by mouth. 0 Active capsule naltrexone (REVIA) 50 MG Take 50 mg by mouth daily. 0 07/27/2021 Active tablet ondansetron (ZOFRAN-ODT) 4 ondansetron 4 mg 0 Active MG disintegrating tablet disintegrating tablet ondansetron (ZOFRAN) 4 MG Take 4 mg by mouth every 8 0 04/04/2021 Active tablet hours as needed. pancrelipase, 0 04/26/2021 Activ e Efe-Tjhz-Koyu, (CREON) 410[address] units capseul-delayed release particles sildenafil (VIAGRA) 100 MG Take 1/2-1 tab Take 30min 0 06/06/2021 Active tablet to 4 hours before sexual activity. Max 100mg/24hr. tamsulosin (FLOMAX) 0.4 MG Take 0.4 mg by mouth 0 Active CAPS capsule daily. diclofenac (VOLTAREN) 50 MG Take 1 Tablet (50 mg) by 60 Tablet 0 12/23/2021 Active enteric coated tablet mouth two times a day. Active Problems Problem Noted Date Primary osteoarthritis of right knee 11/23/2020 Sprain of anterior cruciate ligament of right knee Complex tear of medial meniscus of right knee as curre nt injury 11/23/2020 History of arthroscopy of right knee 09/22/2020 Chronic pain of right knee 09/22/2020 Encounters Date Type Specialty Care Team Description 01/06/2022 Hospital Encounter Isaac Peña MD 01/01/2022 Telemedicine Orthopedics Isaac Peña, Rupture of a nterior cruciate ligament of right knee, subsequent encounter (Primary Dx); Primary osteoar thritis of right knee; S/P right knee arthroscopy; Chronic pain of right knee; Complex tear of medial meniscus of right knee as current injury, subsequent encounter 12/23/2021 Telephone Orthopedics Isaac Peña, Claudine ONEAL MD 12/15/2021 Office Visit Orthopedics Isaac Peña, Rupture of a nterior cruciate ligament of right knee, subsequent encounter (Primary Dx); Complex tear of medial meniscus of right knee as current injury, subsequent encounter; Primary osteoar thritis of right knee; S/P right knee arthroscopy; Chronic pain of right knee 12/11/2021 Telephone Orthopedics Isaac Peña, Surgery Sche duling (R knee) from Last 3 Months Social History Tobacco [...] Phone Address Type Plan / Dates Group [facility] [id number] 2019-Pres [phone] [phone] [place] [address] Care Teams Box Lidder Relationship Specialty Start Date End Date Aydin Morales MD PCP - General 08/29/13 1001 [facility] [address] [address]
--- OUTSIDE RECORDS SUMMARY | 2022-01-27 11:51 | XMS_ITS | Encounter Summary ---
:1975 Author Organization [place] Address [address] [facility] [place] [address] Care Team Providers Name Role Phone Aydin Morales MD Primary Care Provider Reason for Visit Reason Onset Date Comments MH/CD Inpatient 10/19/2020 Encounter Details Date Type Department Care Team Description 10/19/2020 Telephone [facility] Generic, Behavioral MH/ CD Inpatient Behavioral Health In shirley Skaggs MD [address] [place] [phone] Social History Tobacco Use Types Packs/Day [...] - 10/19/2020 2:27 PM CDT S: [facility], [place] [facility], 45/M, alcohol detox B: Pt reports [...] Intake awaiting lab work 414pm - Patrice, metalizer field operation provider, paged 425pm - Patrice accpets Pt placed in queue 435pm - unit charge notified, 730pm for report 436pm - ED charge notified via text page documented in this encounter Plan of Treatment Not on filedocumented as of this encounter Visit Diagnoses Not on filedocumented in this encounter Care Teams Shipping Weigher Relationship Specialty Start Date End Date Aydin Morales MD PCP - General 11/01/09 100[address] [facility] [address] [place] [address] documented as of this encounter
--- OUTSIDE RECORDS SUMMARY | 2022-01-27 11:51 | XMS_ITS | Encounter Summary ---
:1975 Author Organization [place] Address [address] [place] [address] Care Team Providers Name Role Phone Unavailable Primary Care Provider Unavailable Encounter Details Date Type Department Care Team Description 06/03/2009 Results Only HOSP RESULTS Colin Silva MD [address] [place] [phone] (Wo rk) Social History Tobacco [...] CT SCAN ABDOMEN/PELVIS (06/03/2009 11:13 PM CDT) Anatomical Region Laterality Modality Other Specimen (Source) Anatomical Collection Method Collection Time Re ceived Time Location / / Volume Laterality 06/03/2009 11:13 PM CDT Impressions 06/04/2009 2:[address] SCAN OF THE ABDOMEN AND PELVIS [...] was read by [facility] [facility] [place], [place]. Bryan Murry MD SPECIAL IMAGING STUDIES X-RAY ABDOMEN 1+ VW (06/03/2009 9:59 PM CDT) Anatomical Region Laterality Modality Other Specimen (Source) Anatomical Collection Method Collection Time Re ceived Time Location / / Volume Laterality 06/03/2009 9:59 PM CDT Impressions 06/04/2009 2:40 PM CDT KUB ? CLINICAL HISTORY: ??Right flank pain. [...] 0900 hours. Bryan Murry MD GENERAL IMAGING documented in this encounter Visit Diagnoses Not on filedocumented in this encounter
--- OUTSIDE RECORDS SUMMARY | 2022-01-27 11:51 | XMS_ITS | Encounter Summary ---
:1975 Author Organization [place] Address [address] [place] [address] Care Team Providers Name Role Phone Aydin Morales MD Primary Care Provider Reason for Visit Reason Comments Eye Problem Encounter Details Date Type Department Care Team Description 12/28/[address] [facility] , UV keratitis [facility] Emergency Dept [address] [facility] [address] [place] [phone] [place] [address] (Wo rk) Social History Tobacco Use Types Packs/Day Years Used Date Smoking Tobacco: Every Day Cigarettes 0.5 Alcohol Use Standard Drinks/Week Comments Yes [...] you this evening. Thank you for choosing [facility]. We appreciate the opportunity to meet [...] sent through Care Everywhere. FLASH BURN, EYE (SWISS)documented in this encounter Medications at Time of [...] (COMPLE LEANA) 2337 (Given - Provider: Isha Thurston RN - Comment: given by ) 2 drop, Both Eyes, ONCE, 12/28/10 at 2321, For 1 dose documented in this encounter Care Teams Boiler Helper Relationship Specialty Start Date End Date Aydin Morales MD PCP - General 11/01/09 1001 [facility] 100 [place] [address] documented as of this encounter
--- OUTSIDE RECORDS SUMMARY | 2022-01-27 11:51 | XMS_ITS | Encounter Summary ---
:1975 Author Organization [place] Address [address] [place] [address] Care Team Providers Name Role Phone Aydin Morales MD Primary Care Provider Reason for Visit Reason Comments ER NOTES Encounter Details Date Type Department Care Team Description 11/01/2009 Orders Only [facility] Brian Vicente Dog Bite (Primary Dx) DO Loc [address] [facility] [address] [place] [address] (Wo rk) Social History Tobacco Use Types Packs/Day Years Used Date Smoking Tobacco: Never Assessed Sex Assigned at Date Recorded Not on file documented as of this encounter Plan of Treatment Not on filedocumented as of this encounter Visit Diagnoses Diagnosis Dog bite(E906.0) - Primary Dog bite documented in this encounter Care Teams Spool Carrier Relationship Specialty Start Date End Date Aydin Morales MD PCP - General 11/01/09 1001 [facility] [place] [address] [place] [address] documented as of this encounter
--- OUTSIDE RECORDS SUMMARY | 2022-01-27 11:51 | XMS_ITS | Encounter Summary ---
:1975 Author Organization [place] Address [address] [place] [address] Care Team Providers Name Role Phone Aydin [...] on filedocumented in this encounter Care Teams Elevator Troubleshooter Relationship Specialty Start Date End Date Aydin Morales MD PCP - General 11/01/09 1001 [facility] [place] [address] [place] [address] documented as of this encounter
--- OUTSIDE RECORDS SUMMARY | 2022-01-27 11:51 | XMS_ITS | Encounter Summary ---
:1975 Author Organization [place] Address [address] [place] [address] Care Team Providers Name Role Phone Aydin Morales MD Primary Care Provider Encounter Details Date Type Department Care Team Description 11/01/2009 Emergency room [facility] Social History Tobacco Use Types Packs/Day Years Used Date Smoking Tobacco: Never Assessed Sex Assigned at Date Recorded Not on file documented as of this encounter Plan of Treatment Not on filedocumented as of this encounter Visit Diagnoses Not on filedocumented in this encounter Care Teams Fish Rod Maker Relationship Specialty Start Date End Date Aydin Morales MD PCP - General 11/01/09 1001 [facility] 100 [place] [address] documented as of this encounter
--- OUTSIDE RECORDS SUMMARY | 2022-01-27 11:51 | XMS_ITS | Encounter Summary ---
:1975 [facility] Address [address], [place] [address] Care Team Providers Name Role Phone Aydin Morales MD Primary Care Provider Reason for Referral Consult/Transfer Care (Routine) - New Request Specialty Diagnoses / Procedures Referred By Contact Refer red To Contact Diagnoses Acute pain of right knee Anupam Mclain DO [address] [place], [place] [address] Referral ID Status Reason Start Date Expiration Date Visits V isits Requested Authorized [id number] New Request 08/18/2021 11/17/2022 1 1 Scheduling Instructions Your provider has recommended an appoint ment with [facility]. You can quickly make your appointment online at [employer]/schedule. You can also call [phone] for help scheduling yo ur appointment. We [...] right knee , subsequent encounter Care [address] [facility] [address] [place] [address] [phone] Social History Tobacco Use Types Packs/Day Years [...] this encounter Patient Instructions Patient InstructionsOlga Mauro 08/18/2021 2:21 PM CDT Thank you for choosing [facility] for your health care visit today. Anupam Mclain, Imaging Cook Fish And Chips: [facility] [place] [address]. Call [phone] to schedule. Medication Requests: Prescriptions are filled on Weekdays before 3:00PM For all medication refills: Request a refill using [employer] or contact your Pharmacy Paperwork Requests: FMLA or disability paperwork can be faxed to: [phone] Please allow 7-10 business days for completion of all paperwork. [facility] Worker's Compensation Services: E-mail Address: [email or web address] What is Know Your Cost? Know Your Cost is a service for patients and patient/members to call and receive personalized cost information and estimates across our care group. The phone number is (COST) Wednesday - Wednesday 8 AM to 5 PM To request copies of your medical records, call: [phone] (option 4) Diagnosis: Right knee medial meniscus tear Plan: Follow Up: Schedule an appointment with for further care. If you have any questions regarding your visit or next steps, please contact us at [phone]. documented in this encounter Progress Notes Anupam Mclain, DO - 08/18/2021 12:00 AM CDT NAME: ANASTASIYA GRANADOS CSN: [id number] CLINIC NOTE DATE OF SERVICE: 08/18/2021 : [...] up as directed. ANUPAM MCLAIN DO MAC/ADALBERTOS /[id number] documented in this encounter Plan of Treatment Scheduled Referrals Name Type Priority Associated Diagnoses Order S chedule Orthopaedic Consult Referral Routine Acute pain of right O rdered: 08/18/2021 Adult/Peds knee documented as of this encounter Visit Diagnoses Diagnosis Acute pain of right knee - Primary Acute medial meniscus tear of right knee , subsequent encounter documented in this encounter Care Teams Community Center Worker Relationship Specialty Start Date End Date Aydin Morales MD PCP - General 08/29/13 1001 [facility] 100 [place] [address] documented as of this encounter
--- OUTSIDE RECORDS SUMMARY | 2022-01-27 11:51 | XMS_ITS | Encounter Summary ---
:1975 Author [facility] Address [address] [place] [address] Care Team Providers Name Role Phone Aydin Morales MD Primary Care Provider Reason for Visit Reason Comments QUESTIONS, GENERAL Encounter Details Date Type Department Care Team Description 12/23/2021 Telephone [facility] Isaac Bentley MD QUESTIONS, GENERAL [address] [facility] [address] [facility] [place], [place] [address] [place] [address] [phone] (Wo rk) Social History Tobacco Use Types Packs/Day Years Used Date Smoking Tobacco: Former Cigarettes Quit : 08/09/2013 Smokeless Tobacco: Never Alcohol Use Standard Drinks/Week Comments Yes 2 (1 standard drink = 0.6 oz pure alcoho l) Sex Assigned at Date Recorded Not on file documented as of this encounter Nursing Notes Clementina Goel RN - 12/23/2021 2:33 PM CDT Pt tripped and now is having increased knee pain. He is icing, elevating, and taking both tylenol and ibuprofen. Discussed possibly sending in a prescription NSAID. Pt agreed to plan. Voltaren prescribed per Dr. Peña. Chelsie Hewitt - 12/23/2021 12:07 PM CDT Has the patient recently had surgery or an injury? Surgery currently scheduled on 03/18/[address] Isaac Peña How may we help you today? Pain/ questions Describe your symptoms/concerns: Pt. Called today explaining that he had injured his knee on a camping trip over the weekend and is requesting pain medication, to help him manage until his knee surgeryon 01/[address] Peña. Please follow up with Pt. Regarding this. When did the issue start: N/A Have you been seen for this recently?: N/A [Audio Video Mechanic/Appt Center: If yes, please include date and provider.] Is it okay to leave detailed message on your voicemail? Yes [Audio Video Mechanic/Appt Center: If this call is after 3 p.m., communicate to patient: If we are not able to get back to you by the end of the day and your symptoms worsen please contact the Careline] documented in this encounter Plan of Treatment Not on filedocumented as of this encounter Visit Diagnoses Not on filedocumented in this encounter Care Teams Sale Professional Digital Marketing Relationship Specialty Start Date End Date Aydin Morales MD PCP - General 08/29/13 1001 [facility] 100 [place] [address] documented as of this encounter
--- OUTSIDE RECORDS SUMMARY | 2022-01-27 11:51 | XMS_ITS | Encounter Summary ---
:1975 Author Organization [facility] Address [address] [address] Care Team Providers Name Role Phone Aydin Morales MD Primary Care Provider Reason for Referral Procedure/Equipment (Routine) - Incomplete Specialty Diagnoses / Procedures Referred By Contact Refer red To Contact Diagnoses Rupture of anterior cruciate ligament of right knee, subsequent encounter Complex tear of medial meniscus of right knee as current injury, subsequent encounter Primary osteoarthritis of right knee S/P right knee arthroscopy Isaac Peña MD Procedures Case Request OR - Orthopedic Surgery: Arthroscopic-assisted ACL Reconstruction With Bone Tendon Bone Allograft, possible medial meniscectomy [address] [place] [address] [place], [place] [address] Referral ID Status Reason Start Date Expiration Date Visits V isits Requested Authorized [id number] Incomplete 12/17/2021 03/18/2023 1 1 Reason for Visit Reason Comments Knee Problem Right knee discuss felipe oneil with surgery Encounter Details Date Type Department Care Team Description 12/15/2021 Office Visit [facility] Isaac Peña MD Rupture of anterior cruciate ligament of right knee, subsequent encounter (Primary Dx); CENTER [address] [place] [address] Complex tear of medial meniscus of right knee as current injury, subsequent encounter; [address] [place], [place] Primary osteoarthritis of ri ght knee; [place] [address] S/P right knee arthroscopy; [address] Chronic pain of right knee Social History Tobacco Use Types Packs/Day Years Used Date Smoking Tobacco: Former Cigarettes Quit : 08/09/2013 Smokeless Tobacco: Never Alcohol Use Standard Drinks/Week Comments Yes 2 (1 standard drink = 0.6 oz pure alcoho l) Sex Assigned at Date Recorded Not on file documented as of this encounter Patient Instructions Patient InstructionsRain Yañez MA - 12/15/2021 9:40 AM CDT Thank you for Choosing [facility] for your health care visit today. Dr. Isaac Peña MD Orthopaedic Surgeon Medication Requests: Prescriptions are not filled on weekends or on weekdays after 3:00 PM. For all medication refills: Request a refill using [employer] or contact your pharmacy. What is Know Your Cost? Know Your Cost is a service for patients and patient/members to call and receive personalized cost information and estimates across our care group. The phone number is (COST) Wednesday - Wednesday 8 AM to 5 PM Advanced Imaging Scheduling: To schedule an MRI, Ultrasound, or Image guided injection at [facility] please call [phone]. To schedule an MRI or CT at a [facility] [place] location please call [phone]. [facility] Workers' Compensation [address] [place] [address] (Phone) Email: [email or web address] Release of Information: Radiology/Imaging [address] [place] [address] (Phone) Health Information Management [address] [place] [address] (Phone) [place] documented in this encounter Plan of Treatment Scheduled Orders Name Type Priority Associated Diagnoses Order S chedule 2019 Novel Microbiology Routine Rupture of anterior Expected : Coronavirus cruciate ligament of 022, (COVID-19) right knee, subsequent Expir es: encounter 12/17/2022 Complex tear of medial meniscus of right knee as current injury, subsequent encou nter Primary osteoarthritis of right knee S/P right knee arthroscopy documented as of this encounter Visit Diagnoses Diagnosis Rupture of anterior cruciate ligament of right knee, subsequent encounter - Primary Complex tear of medial meniscus of right knee as current injury, subsequent encounter Primary osteoarthritis of right knee Primary localized osteoarthrosis, lower leg S/P right knee arthroscopy Other postprocedural status Chronic pain of right knee documented in this encounter Care Teams Dependency Program Director Relationship Specialty Start Date End Date Aydin Morales MD PCP - General 08/29/13 1001 [facility] 100 [place] [address] documented as of this encounter
--- OUTSIDE RECORDS SUMMARY | 2022-01-27 11:51 | XMS_ITS | Encounter Summary ---
:1975 Author Organization [facility] Address [address], [place] [address] Care Team Providers Name Role Phone Aydin Morales MD Primary Care Provider Reason for Visit Auth/Cert (Routine) Specialty Diagnoses / Procedures Referred By Contact Refer red To Contact Diagnoses Rupture of anterior cruciate ligament of right knee, subsequent encounter Complex tear of medial meniscus of right knee as current injury, subsequent encounter Primary osteoarthritis of right knee S/P right knee arthroscopy Procedures ARTHSCPY AIDED ACL REPR/AUG/RECON SCOPE KNEE SURG;W/MENISCECT MED/LAT SCOPE KNEE; W/MENISCUS REPR MED/LAT Arthroscopic-assisted Anterior Cruciate Ligament Reconstruction With Bone Tendon Bone Allograft, possible medial meniscectomy X Referral ID Status Reason Start Date Expiration Date Visits Requ ested Visits Authorized [id number] 1 1 Encounter Details Date Type Department Care Team Description 01/06/2022 Hospital Encounter [facility] Isaac Peña MD [address] [facility] [place] e [address] [facility] [place], [place] [address] [place], [place] [phone] (Wo rk) Social History Tobacco Use Types Packs/Day Years Used Date Smoking Tobacco: Former Cigarettes Quit : 08/09/2013 Smokeless Tobacco: Never Alcohol Use Standard Drinks/Week Comments Yes 2 (1 standard drink = 0.6 oz pure alcoho l) Sex Assigned at Date Recorded Not on file documented as of this encounter Plan of Treatment Not on filedocumented as of this encounter Visit Diagnoses Diagnosis Sprain of anterior cruciate ligament of right knee Sprain of cruciate ligament of knee Complex tear of medial meniscus of right knee as current injury Tear of medial cartilage or meniscus of knee, current Primary osteoarthritis of right knee Primary localized osteoarthrosis, lower leg History of arthroscopy of right knee Other postprocedural status documented in this encounter Admitting Diagnoses Diagnosis Sprain of anterior cruciate ligament of right knee Sprain of cruciate ligament of knee Complex tear of medial meniscus of right knee as current injury Tear of medial cartilage or meniscus of knee, current Primary osteoarthritis of right knee Primary localized osteoarthrosis, lower leg History of arthroscopy of right knee Other postprocedural status documented in this encounter Care Teams Formation Testing Operator Relationship Specialty Start Date End Date Aydin Morales MD PCP - General 08/29/13 1001 [facility] [address] [place] [address] documented as of this encounter
--- OUTSIDE RECORDS SUMMARY | 2022-01-27 11:51 | XMS_ITS | Encounter Summary ---
:1975 Author Organization [facility] Address [address] [place] [address] Care Team Providers Name Role Phone Aydin Morales MD Primary Care Provider Reason for Visit Procedure/Equipment (Routine) - Closed Specialty Diagnoses / Procedures Referred By Contact Refer red To Contact Diagnoses Effusion of right knee Sourav Ramirez MD Procedures MR Knee Rt WO IV Cont [address] [facility] [address] [place] [address] Referral ID Status Reason Start Date Expiration Date Visits Requ ested Visits Authorized [id number] Closed 08/13/2021 11/12/2022 1 1 Encounter Details Date Type Department Care Team Description 08/18/2021 Ancillary TRISourav Rodriguez Effusion of right Procedure Radiology MRI MD Amberly knee [address] [facility] [place] [address] [place] [phone] Social History Tobacco Use Types Packs/Day Years [...] MR KNEE RT WO IV CONT LOCATION: [facility] DATE/TIME: 08/18/2021 12:10 PM INDICATION: [...] is intact. -Pes anserine tendons are normal. Hand Hide Stretcher omedial corner complex ligaments are intact. POSTEROLATERAL [...] MR KNEE RT WO IV CONT LOCATION: [facility] DATE/TIME: 08/18/2021 12:10 PM INDICATION: [...] is intact. -Pes anserine tendons are normal. Hand Hide Stretcher omedial corner complex ligaments are intact. POSTEROLATERAL [...] joint documented in this encounter Care Teams Feed Research Aide Relationship Specialty Start Date End Date Aydin Morales MD PCP - General 08/29/13 1001 [facility] [address] [place] [address] documented as of this encounter
--- OUTSIDE RECORDS SUMMARY | 2022-01-27 11:51 | XMS_ITS | Encounter Summary ---
:1975 Author Organization [place] Address [address] [facility] [place] [address] Care Team Providers Name Role Phone Aydin Morales MD Primary Care Provider Reason for Visit Reason Comments Abdominal Pain Pt was on 3A, had acute ABD pain, sent to ER by Hospitalist. Auth/Cert Specialty Diagnoses / Procedures Referred By Contact Refer red To Contact Med Surg Diagnoses Acute pancreatitis Acute pancreatitis Uu U7b [address] [place] [address] Phone: Referral ID Status Reason Start Date Expiration Date Visits Requ ested Visits Authorized [id number] 1 1 Encounter Details Date Type Department Care Team Description 10/20/2020 - [facility] Emily Borja MD [address] [address] Alcohol-induced 10/23/2020 Encounter [facility] Unit 7B Jackson Coughlin DO [address] [place], [place] [id number] acute pancreatitis, Jackson Martinez MD [address] [place] [address] unspecified 500 [facility] Chetan Villasenor MD [address] [address] complication status ABBY BURCIAGA (Primary Dx) [id number] Social History Tobacco Use Types Packs/Day Years [...] Villasenor MD - 10/23/2020 11:42 AM CDT [facility] Hospitalist Discharge Summary Date of Admission: 10/20/2020 Date of Discharge: 10/23/2020 12:42 PM Discharging Provider: Chetan Villasenor MD Discharge Team: Hospitalist Service, [facility] Discharge Diagnoses SIRS without active infection due [...] bowel regimen. ?? Consultations This Hospital Stay [facility] IP CONSULT VASCULAR ACCESS CARE ADULT IP CONSULT Code Status Prior Time Spent on this Encounter I, Chetan Villasenor MD, personally saw the patient today and spent less than or equal to 30 minutes discharging this patient. Chetan Villasenor MD [facility] [address] [place] [phone] Physical Exam BP (!) 148/89 (BP Location: [...] tests Follow up with primary care provider, Aydni Morales, within 7 days for hospital follow- [...] Narrative EXAM: XR ABDOMEN 1 VIEW LOCATION: [facility] DATE/TIME: 10/20/2020 4:00 AM INDICATION: abdominal pain [...] PA-C Hospitalist Service Contact information available via [facility] Paging/Directory Chetan Villasenor MD - 10/22/2020 4:19 PM CDT [facility] Medicine Progress Note - Hospitalist Service, Patel 9 Date of Admission: 10/20/2020 Assessment & [...] 3500. - Cont Dilaudid for pain control (CYLINDER LOADER) - Added OxyIR PRN - ADAT - Cont IVF for now Alcohol withdrawal Patient was admitted initially to the detox unit. Patient did present with desire for treatment. - CINV protocol - Valium as needed - high [...] and Patient. Chetan Villasenor MD Hospitalist Service, [address] Securely message with the [employer] Console (learn more here) Text page via [facility] Paging/Directory Please see sign in/sign out for [...] ASSESSMENT Progress Note [facility] ([place] 7B REFERRAL SOURCE: Staff referral - bedside nurse Yumiko Patient declined visit at this time; said that tomorrow would be better. PLAN: I will follow up tomorrow. [facility] remains available for patient, family, and staff support. Please page the dictaphone operator personal development mentor either via [employer] ([facility]) or by placing a STAT or AIMEE Epic referral for Spirit[facility] (which will roll to the dictaphone operator pager). Malcolm Villalba Gasoline Engine Inspector Pager: [phone] Jackson Lockwood MD - 10/21/2020 3:44 PM CDT [facility] Medicine Progress Note - Hospitalist Service, [facility] Anuj Date of Admission: 10/20/2020 Assessment & Plan [...] IVF until PO improving. Then wean off CYLINDER LOADER and stop IVF ~24 hr from now [...] and Patient. Jackson Lockwood MD Hospitalist Service, [address] Securely message with the [employer] Console (learn more here) Text page via [facility] Paging/Directory Please see sign in/sign out for [...] family. Wants broth, liquids Okay with current rn progressive care unit and ivf Understands current mood state and [...] mL/hr Activity: SBA Pain: Pain managed with CYLINDER LOADER dilaudid @ 0.3 [id number], need reminder to use CYLINDER LOADER Plan: Continue POC Jackson Lloyd DO - 10/20/2020 6:15 PM CDT Seen at bedside on arrival to . In a lot of pain, abdominal, with labs showing worsening lipase. Patient states he is not drinking. Increased dilauded during daytime has been ineffective. Placed orders for CYLINDER LOADER pump 0.3 mg q 15 m. 1.2 [...] notes. Jackson Lloyd D.O. Internal Medicine, Hospitalist [facility] Pager: [phone] Chetan Owen MD - 10/20/2020 11:30 AM [...] as needed Patient may benefit from a CYLINDER LOADER Trial of ketorolac IV Protonix Antiemetics IV fluids Alcohol drawl protocol Admission orders have been placed by Dr. Borja. documented in this encounter H&P Notes Evangelist Borja MD - 10/20/2020 5:10 AM CDT [facility] History and Physical - Hospitalist Service Date [...] Patient did present with desire for treatment. -[facility] protocol - Valium as needed - high [...] patient's care was discussed with the Patient. Evangelist Borja MD [facility] Securely message with the [employer] Console (learn more here) Text page via [facility] Paging/Directory Chief Complaint Abdominal Pain History is [...] SpO2 95% BMI 29.29 kg/m?? Shift time: 2484-7881 Neuros: A&Ox4. Pt seems anxious. Denies any [...] Jackson RN - 10/22/2020 10:57 PM CDT Lan Specialist taylor henderson. Cesar Franco Pt needs something additional to help sleep. Thank you, Dede [phone] Plan of Care - Ashley Truong RN [...] Continue to monitor Provider Notification - Ashley Truogn RN - 10/22/2020 7:17 PM CDT 7B [id number] Franco Pt c/o increased pain in abd/nausea, AXR shows early ileus. Pt currently on reg diet and oral oxy. Let me know if [place] [id number] Provider Notification - Ashley Truong RN - 10/22/2020 4:38 PM CDT 7b [id number] franco Pty becoming increasingly nauseas, abd distended, -BM -flatus faint BS for 3 days. Simethicone, suppository, and now enema with no success. Maybe abd XR? [place] [id number] Plan of Care - Yulisa Espinoza RN [...] SpO2 92% BMI 29.29 kg/m?? Shift time: 6549-1190 Neuros: A&Ox4. Denies any numbness or tingling. Gave PRN oral valium x2. Cardiac: Tachy and some HTN but within normal parameters. Respiratory: WDL. Denies any SOB. Does sat in the lower 90's. GI/Gu: Voiding, not saving. No BM this shift. PRN suppository giving. Skin/Incisions: No new deficits. . Pain: CYLINDER LOADER pump 0.3 Q 10 minutes. Diet: Clears. Activity: ind. Plan: Continue with POC. Provider Notification - Dede Jackson RN - 10/21/2020 9:39 PM CDT Lan Specialist taylor henderson. 7b rm [id number] Cesar Franco Pt is asking for a suppository. Thank you, Dede [phone] Plan of Care - Ashley Truong RN - 10/21/2020 6:32 PM CDT 3-7 p Admit 10/20 for alcohol induced pancreatitis VSS X tachy 100s Tmax 100.8 Neuro: anxious, sweaty, antsy, CIWA of 10 valium given with improvement Pain: treated with dilaudid CYLINDER LOADER 0.3/10 CMS: some on and off trembling [...] 100.3. Patient reports pain is tolerable with CYLINDER LOADER Dilaudid 0.3 every 10 min, with a 0.5 mg bump. Abdomen soft, slightly distended with bowel sounds present, patient reports he isn'tpassing gas and no BM this shift. Suppository requested per patient. Tolerating clear liquid diet. Up independently. CIWA of 1 this shift. Provider Notification - Yulisa Espinoza RN - 10/21/2020 8:12 AM CDT Paged provider at #[phone] regarding pain and BP of 155/103, HR 117 Plan of Care - Micheal Boothe RN - 10/21/2020 1:44 AM CDT Problem: Pain Acute Goal: Acceptable Pain Control and Functional Ability Outcome: No Change Intervention: Develop Pain Management Plan Recent Flowsheet Documentation Taken 10/21/2020 0036 by Micheal Boothe RNfeed mill lab technician Interventions: pain pump in use CYLINDER LOADER in placed, need constant reminder to use CYLINDER LOADER Plan of Care - Stephen Lange RN - 10/20/2020 10:21 PM CDT Vitals: 10/20/20 1330 10/20/20 1445 10/20/20 1536 10/20/20 195 BP: (!) 164/105 (!) 175/95 (!) 149/79 BP Location: Right arm Left arm Pulse: 60 62 72 Resp: Temp: 98.1 ??F (36.7 ??C) 96.9 ??F (36.1 ??C) 99 ??F (37.2 ??C) TempSrc: Oral Oral Oral SpO2: 93% 94% 97% 93% Weight: 45 years old male came from [place] ED, history of acute alcohol withdrawal excessive alcohol use, complain of sever abdominal pain, nausea and vomiting, pt on arrival appears uncomfortable, Epigastric tenderness, rated pain 10/10, compazine and IV dilaudid 0.5 given, that was insufficient, paged, started CYLINDER LOADER dilaudid 0.3 Q 15, Zofran given at 2220, no emesis, CIWA score 3. Pt stated wants CYLINDER LOADER basal rate, pt lemos resting comfortably, if needed later, please let MD know, Expected discharge to [facility] once adequate pain control, LR at 125 ml/hr, Voided not saved, no BM, continue with plan of care. Plan of Care - Stephen Lange RN - 10/20/2020 10:17 PM CDT Admitted/transferred from: [place] [facility] 2 RN skin assessment completed by Stephen Lange RN, Skin assessment finding, pt refused assessment at this time due to pain per pt Interventions/actions: Will reassess tomorrow, Pharmacy-Admission Medication History - Sundar DewittongCANDI - 10/20/2020 4:00 PM CDT Admission Medication History Completed by Pharmacy See [facility] Admission Navigator for allergy information, preferred outpatient pharmacy, prior to admission medications and immunization status. Medication History Sources: ??? Patient ??? SureScript Changes made to STAFF PSYCHOLOGIST medication list (reason): ??? Added: None ??? [...] Medication history completed by: Renetta Dewitt, PharmD, BCPS 10/20/2020 4:02 PM documented in this encounter [...] City/State/ZIP Code Phon e Number UU LABORATORY [facility] [place] [address] Lab [address] [facility], Room 3-[address] [place] [address], Lab [facility] [address] [facility], Room 3580 Platelet count (10/23/2020 7:31 [...] Address City/State/ZIP Code [place] [address] Lab [address] [facility], Room 3-[address] [place] [address], [address], Room 3580 XR Abdomen 1 View [...] City/State/ZIP Code Ph[place] [address] [phone] Lab 500 [facility] [address], Room 3[address] [place] [address], Lab [place] [address] [facility] [address] Building, Room 3580 Magnesium (10/22/2020 7:41 [...] City/State/ZIP Code Ph[place] [address] [phone] Lab [address] [facility] [address] Building, Room 3-[address] [place] [address], Lab [place] [address] [facility] Unit [facility], Room 3580 (ABNORMAL) Comprehensive metabolic panel (10/22/2020 7:41 AM CDT) [facility] Method Time Signature Sodium 135 133 [...] City/State/ZIP Code Ph[place] [address] Lab [address] [facility], Room 3-[address] [place] [address], Lab [facility] [address] [facility], Room 3580 (ABNORMAL) CBC with platelets (10/22/2020 7:41 AM CDT) [facility] gist Method Time Signature WBC Count 11.6 (H) [...] LAB - BLOOD ORDERABLES Performing Organization Address City/[facility] Phon [place] [address] Lab [address] [facility], Room 3-[address] [place] [address], Lab [place] [address] [facility], Room 3580 Blood Culture Arm, Left (10/21/2020 11:19 AM CDT) P athologist Signature Culture No Growth 10/26/2020 UU IDD 12:31 PM CDT LABORATORY Specimen Anatomical Collection Method / Collection Time Recei alberta Time (Source) Location / Volume Laterality Blood STRUCTURE OF LEFT Venipuncture / 10/21/2020 11:19 10/06 UPPER LIMB / Unknown AM CDT 11:42 AM CDT Unknown Jackson Lockwood MD LAB - MICRO GENERAL ORDERABL ES Performing Organization Address City/State/ZIP Code Phon e Number UU IDD LABORATORY [facility] [place] [address] Diag. Lab 500 [facility], Room [address]297 UU IDD LABORATORY [facility] Infectious [place], [place] [phone] Diseases Diagnostic [phone], [facility] Lab (IDDL) [address] [facility], Room [address]297 Blood Culture Hand, Right (10/21/2020 11:13 AM CDT) athologist Signature Culture No Growth 10/26/2020 UU IDD 12:31 PM CDT LABORATORY Specimen Anatomical Collection Method / Collection Time Recei alberta Time (Source) Location / Volume Laterality Blood STRUCTURE OF RIGHT Venipuncture / 10/21/2020 11:13 HAND / Unknown Unknown AM CDT 11:42 AM CDT Jackson Lockwood MD LAB - MICRO GENERAL ORDERABL ES Performing Organization Address City/[facility]/ZIP [facility] Phon e Number UU IDD LABORATORY [facility] [place] [address] Diag. Lab 500 [facility], Room [address]297 UU IDD LABORATORY [facility] Infectious [place], [place] [phone] Diseases Diagnostic [phone], [facility] Lab (IDDL) [address] [facility], Room [address]297 Lactic Acid STAT (10/21/2020 [...] LAB - BLOOD ORDERABLES Performing Organization Address City/[facility] Phon [place] [address] [phone] Lab [address] [facility], Room 3-[address] [place] [address], Lab [facility] [address] [facility], Room 3580 (ABNORMAL) CBC with platelets (10/21/2020 7:35 AM CDT) [facility] gist Method Time Signature WBC Count 14.1 [...] City/State/ZIP Code Phon [place] [address] Lab [address] [facility], Room 35[address] [place] [address], Lab [facility] [address] [facility], Room 3580 (ABNORMAL) Lipase (10/21/2020 7:35 AM [...] City/State/ZIP Code Ph[place] [address] Lab [address] [facility] [address] Building, Room 3-[address] [place] [address], Lab [place] 500 [facility] J Building, Room 3580 (ABNORMAL) Comprehensive metabolic panel (10/21/2020 7:35 AM CDT) [facility] Method Time Signature Sodium 135 133 [...] LAB - BLOOD ORDERABLES Performing Organization Address City/[facility]/ZIP Code [place] [address] Lab [address] [facility], Room 3-[address] [place] [address], [facility] [address] [facility], Room 3580 Phosphorus (10/20/2020 3:45 PM [...] Address City/State/ZIP Code [place] [address] Lab [address] [facility], Room 3-[address] [place] [address], Lab [facility] [address] [facility], Room 3580 (ABNORMAL) Magnesium (10/20/2020 3:45 [...] LAB - BLOOD ORDERABLES Performing Organization Address City/[facility] Code [place] [address] Lab [address] [facility], Room 3-[address] [place] [address], Lab [facility] [address] [facility], Room 3580 Creatinine (10/20/2020 3:45 PM [...] City/State/ZIP Code Ph[place] [address] [phone] Lab [address] [facility], Room 3-[address] [place] [address], Lab [facility] 500 [facility] Unit [facility], Room 3580 XR Abdomen 1 [...] CDT EXAM: XR ABDOMEN 1 VIEW LOCATION: [facility] DATE/TIME: 10/20/2020 4:00 AM INDICATION: abdominal pain COMPARISON: None. Procedure Note Kristopher Delgado MD - 10/20/2020F ormatting of this note might be different from the original. EXAM: XR ABDOMEN 1 VIEW LOCATION: [facility] [...] City/State/ZIP Code Phon e [place] [address] Care Lab [address] [facility], Room M309 Lactic acid whole blood (10/20/2020 [...] City/State/ZIP Code Phon [place] [phone] Care Lab [address] [facility], Room M309 (ABNORMAL) Lipase (10/20/2020 3:50 AM [...] LAB - BLOOD ORDERABLES Performing Organization Address City/State/[facility] Code Phon e [place] [phone] Care Lab [address] [facility], Room M309 CBC with platelets (10/20/2020 3:50 [...] UR LABORATORY [facility] [place] [place] [address] Care Lab [address] [facility], Room M309 (ABNORMAL) Comprehensive metabolic panel (10/20/2020 3:50 AM CDT) [facility] gist Method Time Signature Sodium 138 [...] UR LABORATORY [facility] [place] [address] Care Lab [address] [facility], Room M309 documented in this [...] PRN, mild pain, fever, headaches, Starting on 10/21/20 at 1554, Maximum acetaminophen dose from all sources = 75 mg/kg/day not to exceed 4 grams/day. Given 10/22/2020 4:32 PM CDT 650 mg Given 10/21/2020 10:30 PM CDT 650 mg bisacodyl (DULCOLAX) Suppository 10 mg Given 10/21/2020 10:30 PM CDT 10 mg 10 mg, Rectal, DAILY PRN, constipation, Starting on 10/21/20 at 2144, Hold for loose stools. diazepam [...] Subcutaneous, EVERY 24 HOURS, First dose on 10/20/20 at 1600, HOLD if [...] 3:44 AM CDT 0.2 mg HYDROmorphone (DILAUDID) CYLINDER LOADER 0.2 mg/mL Shift Total 10/20/2020 10:00 P M CDT OPIOID NAIVE (age less than 65 years) Continuous Rate: 0 mg/hr, CYLINDER LOADER Dose: 0.3 mg, CYLINDER LOADER Lockout: 15 Minutes, One Hour Limit: 1.2 mg, Clinician Bolus (one time dose): 0 mg, Starting on 10/20/20 at 1700, Hold the dose for analgesic side effects. Notify the provider to assess for uncontrolled pain or analgesic side effects. Do NOT give any additional opioids while on CYLINDER LOADER unless provider authorized., Intravenous New Syringe/Cartridge 10/20/2020 5:17 PM CDT HYDROmorphone (DILAUDID) CYLINDER LOADER 0.2 mg/mL Shift Total 10/22/2020 6:00 AM CDT OPIOID NAIVE (age less than 65 years) Continuous Rate: 0 mg/hr, CYLINDER LOADER Dose: 0.3 mg, CYLINDER LOADER Lockout: 10 Minutes, One Hour Limit: 1.8 mg, Clinician Bolus (one time dose): 0 mg, Starting on Wed10/21/20 at 0830, Hold the dose for analgesic side effects. Notify the provider to assess for uncontrolled pain or analgesic side effects. Do NOT give any additional opioids while on CYLINDER LOADER unless provider authorized., Intravenous Rate/Dose Verify 10/21/2020 [...] to severe pain, Starting on Wed10/20/20 at 1129, For ordered IV doses 0.1-4 [...] 500 mL/hr, Administer over 2 Hours, On Wed10/20/20 at 0330, For 1 dose lactated ringers infusion New Bag 10/20/2020 11:25 AM CDT 125 mL/hr at 125 mL/hr, Intravenous, CONTINUOUS, Please run after bolus is completed, Starting on Wed10/20/20 at 0330, Until Wed10/20/20 at 1531 New Bag 10/20/2020 6:36 AM CDT 125 mL/hr lactated ringers infusion New Bag 10/20/2020 3:53 PM CDT 250 mL/hr at 250 mL/hr, Intravenous, CONTINUOUS, Starting on Wed10/20/20 at 1600, Until Wed10/20/20 at 1959 lactated ringers infusion Rate/Dose Change 10/21/2020 4:00 PM CDT 100 mL/hr at 125 mL/hr, Intravenous, CONTINUOUS, After additional 1L is completed, Starting on Wed10/20/20 at 2000, Until Wed10/21/20 at 1556 New [...] MIN PRN, op ioid reversal, Starting on [place] 10/20/20 at 1549, Administer intravenous route when [...] over 2-5 Minutes, Starting on 10/20/20 at 0330, Irritant. For ordered IV doses [...] Oral, 2 TIMES DAILY, First dose on Wed at 2000, If no bowel movement in 24 hours, increase to 2 tablets by mouth. Hold for loose stools. senna-docusate (SENOKOT-S/PERICOLACE) Given 10/23/2020 8:58 AM C DT 2 tablets 8.6-50 MG per tablet 2 tablet 2 tablet, Oral, 2 TIMES DAILY, First dose on Wed10/20/20 at 2000, Hold for loose stools. Given [...] EVERY 24 HOURS, Fir st dose on Wed10/20/20 at 1600, HOLD if platelet count falls below 50% of baseline or less than 100,000/??L and notify provider. escitalopram (LEXAPRO) tablet 20 mg 0750 (Not Given - Provider: Yulisa Espinoaz RN - Reason: Other - Comment: Patient took own medication) 0754 (Given - Provider: Yulisa Espinoza RN) 0859 (Given - Provider: Tor Rausch RN) 20 mg, Oral, DAILY, First dose on Wed10/20/20 at 1600 famotidine (PEPCID) infusion 20 mg (CANCELED) 0455 (Ne w Bag - Provider: Micheal Boothe RN)1558 (New Bag - Provider: Ashley Truong, SADIE) 0451 (New Bag - Provider: Dede Jackson, SADIE) 20 mg, Intravenous, Administer over 15-3 0 Minutes, at 100-200 mL/hr, EVERY 12 HOURS, First dose on Wed10/20/20 at 1600 HYDROmorphone (PF) (DILAUDID) injection 0.5 [...] m agnesium citrate, mineral oil, sodium phosphate) 193 (Not Given - Provider: Ashley Truong RN [...] RN)1958 (Given - Provider: Dede Jackson RN) 752 (Given - Provider: Yulisa muñoz RN)2041 (Given [...] EVERY 8 HOURS, Firs t dose on 10/20/20 at 1600, to lock peripheral IV dormant [...] Medication Order 10/21/2020 10/22/2020 10/23/2020 HYDROmorphone (DILAUDID) CYLINDER LOADER 0.2 mg/mL O PIOID NAIVE (age less than 65 years) (CANCELED) 0903 (New Syringe/Cartridge - Provider: Yulisa Espinoza RN)1157 (New Syringe/Cartridge - Provider: Yulisa Espinoza RN)1449 (Shift Total - Provider: Yulisa Espinoza RN)2136 (Rate/Dose Verify - Provider: Dede Jackson RN) 0600 (Shift Total - Provider: Dede Jackson RN) Continuous Rate: 0 mg/hr, CYLINDER LOADER Dose: 0.3 mg, CYLINDER LOADER Lockout: 10 Minutes, One Hour Limit: 1.8 mg, Clinician Bolus (one time dose): 0 mg, Starting on Wed10/21/20 at 0830, Hold the dose for analgesic side effe cts. Notify the provider to assess for u ncontrolled pain or analgesic side effects. Do NOT give any additional opioids while on CYLINDER LOADER unless provider authorized., Intravenous lactated ringers infusion (CANCELED) 0458 (New Bag - P rovider: Micheal Boothe RN)1452 (New Bag - Provider: Yulisa Espinoza RN)1600 (Rate/Dose Change - Provider: Ashley Truong, SADIE) at 125 mL/hr, Intravenous, CONTINUOUS, A fter [...] 10/22/2020 10/23/2020 acetaminophen (TYLENOL) tablet 650 mg 164 (Given - Pr ovider: Ashley Truong RN)223 [...] Ashley Truong RN)1900 (See Alternative - Provider: Aslhey Truong RN)2125 (See Alternative - Provider: Dede Jackson RN) 5-10 mg, Intravenous, Administer over 1- 4 Minutes, EVERY 30 MIN PRN, other, per CIWA-Ar score, Starting on Wed10/20/20 at 0503, Oral dosing is the preferred [...] Truong RN)1900 (Given - Provider: Ashley Truong RN)2125 (Given - Provider: Dede Jackson RN - Comment: ciwa 9) 10 mg, Oral, EVERY 30 MIN [...] over 1 Minutes, Starting on 10/20/20 at 0502, Give if patient unarousable, RR [...] 0858 (Given - Provider: Tor Rausch RN) 25 mg, Oral, 3 TIMES DAILY PRN, anxiety, Starting on 10/21/20 at 1626 lidocaine (LMX4) cream Topical, EVERY 1 HOUR PRN, pain, with VA D insertion, Starting on Wed10/20/20 at 1531, Apply at least 30 minutes [...] 2 mg 2036 (Given - Provider: Dede Jackson RN) 2 mg, Buccal, EVERY 1 HOUR PRN, [...] IF able to take oral, Starting on Wed10/20/20 at 0502, For [facility] Visual Disturbance Score 0-3, Give NO OLANZapine [...] not required. ondansetron (ZOFRAN) injection 4 mg 0317 (Given - Prov ider: Mikayla Escamilla RN) 163 (Given - Provider: Ashley Truong RN) 4 mg, Intravenous, EVERY 4 HOURS PRN, na usea, vomiting, Administer over 2-5 Minutes, Starting on Wed10/20/20 at 1140, Irritant. For ordered IV doses 0.1-4 mg, give IV Push undiluted over 2-5 minutes. oxyCODONE (ROXICODONE) tablet 5-10 mg 11 01 (Given - Provider: Yulisa Espinoza RN)1351 (Given - Provider: Yulisa Espinoza RN)1632 (Given - Provider: Ashley Truong RN)1928 (Given - Provider: Ashley Truong RN) 0858 (Given - Provider: Tor Rausch RN)1131 [...] r CIWA-Ar score, Starting on 10/20/20 at 0503
[...] after each naloxone dose. Consider transfer to [facility] if patient respiratory parameters hav e not [...] response.
documented in this encounter Care Teams Art Professor Relationship Specialty Start Date End Date Aydin Morales MD PCP - General 11/01/09 [address] [facility] [address] [id number] documented as of this encounter
--- OUTSIDE RECORDS SUMMARY | 2022-01-27 11:51 | XMS_ITS | Clinical Summary ---
:1975 Author Organization [email or web address] [facility] llian Affiliates [place] [address] Care Team Providers Name Role Phone Melisa [...] mg/5 mL suspensionIndication s: Upper abdominal pain alum hydrox-mag carb Chew 2 Tablets by 60 Tablet 0 11/15/2021 Active (GAVISCON EXT STR mouth 4 times daily CHEW) 160-105 mg if needed chewableIndications: (abdominal pain). Abdominal pain, unspecified abdominal location mag hydrox/aluminum Maalox and 30 mL 0 12/18/2021 Active hyd/simeth Lidocaine gel 1:1 (aluminum-magnesium ratio. hydroxide-simethicon e, viscous lidocaine 2% 1:1) suspIndications: Epigastric pain alum hydrox-mag carb Chew 2 Tablets by 60 Tablet 0 12/18/2021 Active (Gaviscon Extra mouth 4 times daily Strength) 160-105 mg if needed chewableIndications: (abdominal pain). Epigastric pain ondansetron (ZOFRAN Place 1 Tablet (4 30 Tablet 0 12/18/2021 Active ODT) 4 mg mg) on the tongue disintegrating every 8 hours if tabletIndications: needed for Epigastric pain, Nausea/Vomiting. Nausea benzonatate Take 1 Capsule (100 21 Capsule 0 12/18/2021 Active (TESSALON) 100 mg mg) by mouth 3 capsuleIndications: times daily if Cough, unspecified needed for Cough. type losartan (COZAAR) 25 Take 1 Tablet (25 45 Tablet 1 12/23/2021 Active mg mg) by mouth once tabletIndications: daily. HTN (hypertension) clotrimazole Dissolve 1 Tablet 50 Tablet 0 12/18/2021 12/29/19 2 (MYCELEX VIRI) 10 (10 mg) in the 2 mg mouth 5 times daily trocheIndications: for 10 days. Thrush Active Problems Problem Noted Date Acute pancreatitis [...] Encounters Date Type Specialty Care Team Description 12/28/2021 - Emergency Kristopher Boswell Alcoholi c intoxication without complication (HC) (Primary Dx); 12/29/2021 DO Depression, uns pecified depression type 12/23/2021 Preop Visit Jackson Castañeda Pre-Op Exam DOROTHY Gilmore 12/23/2021 Travel 12/19/2021 Emergency Venita Lovett, Gastri tis, presence of bleeding unspecified, unspecified chronicity, unspecified gastritis type (Primary Dx); Hypokalemia 12/18/2021 Office Visit Stephanie Beard NP Abdomi nal Pain (X 2 days) 12/18/2021 Travel 12/10/2021 Emergency Kristy Weaver Viral UR I with cough Latoya, HSE ADVISOR (Primary Dx) 12/10/2021 Travel 11/15/2021 Emergency Kory Reynoso Abdominal dorothy inYohana MD unspecified abd ominal location (Prima ry Dx) 11/15/2021 Travel 11/11/2021 Emergency Kevyn Jones Upper abdomin al pain (Primary Dx); DOROTHY Cooper Alcohol use; Hypokalemia; Hyperglycemia; Nausea 11/11/2021 Travel from Last 3 Months Immunizations Name Administration Dates Next Due COVID-19 vaccine (Nevigo-J&J) PF, 06/08/2020 MDV COVID-19 vaccine (Suitest IP Group 03/05/2021 30mcg/0.3mL) PF, MDV HepA-HepB (Twinrix) 06/25/2014 Influenza Intradermal PF 18-64 yrs 05/03/2012 Influenza Virus, Unspecified 02/24/2019, 12/18/2013 Influenza, IIV3 (Age 6-35 mos) 03/22/2009 Influenza, IIV3 (Age >=3 years) 12/18/2013, 02/05/2013, 04/09, 12/29/2010, 01/04/2010, 03/22/2009 Influenza, IIV4 01/02/2021, 11/27/2019, 02/24/2019, 04/01/2018, 03/26/2016 Pneumococcal Poly,23-Valent 03/05/2021 (Pneumovax) Tdap 08/20/2012, 03/22/2009 Family History Medical History Relation Name Comments Good Health Brother Diabetes Father Other Father polyps colon Good Health Mother Good Health Sister Good Health Son 1 Good Health Son 2 Anesthesia Problem No Family History Cancer No Family History Heart attack No [...] Assigned at Date Recorded Not on file Obstetrics History Last Filed Vital Signs Vital Sign Reading Time Taken Comments Blood Pressure 144/104 12/29/2021 5:48 AM CDT Pulse 79 12/29/2021 5:48 AM CDT Temperature 36.4 ??C (97.5 ??F) 12/29/2021 5:48 AM CDT Respiratory Rate 18 12/29/2021 5:48 AM CDT Oxygen Saturation 95% 12/29/2021 5:48 AM CDT Inhaled Oxygen Concentration - - Weight 95.2 kg (209 lb 14.1 oz) 12/28/2021 11:05 PM CDT Height 179.1 cm (5' 10.51) 12/28/2021 11:05 PM CDT Body Mass Index 29.68 12/28/2021 11:05 PM CDT Plan of Treatment Health Maintenance Due Date Last Done Comments COVID-19 vaccine series (3 - 04/30/2021 03/05/2021, 021 Booster for Shelbie series) Influenza for age 9-49 11/06/2021 01/02/2021, 11/27/2019, 02/24/2019, Additional history exists Pneumococcal series for age 19-64 03/05/2022 03/05/2021 (2 - PCV) Tetanus booster 08/20/2022 08/20/2012, 03/22/2009 BMI (ht and wt on same day) for 12/23/2022 12/23/2021, 02/06, age 18+ 01/22/2021, Additional history exists Depression screening for age 12+ 12/23/2022 12/23/2021, , 05/23/2020, Additional history exists Lipids for age 45-75 11/25/2025 11/25/2020, 11/27/2019, 11/10/2018, Additional history exists Colonoscopy through age 75 12/17/2025 12/17/2020, 6, 10/09/2015, Additional history exists Tdap Completed 08/20/2012, 03/22/2009 Hepatitis C screening for age Completed 12/23/2021 18-79 Procedures Procedure Name Priority Date/Time Associated Comments Diagnosis POTASSIUM Routine 12/23/2021 1:37 PM Pre-op exam Results f or this CDT procedure are i n the results section. ANTI HCV Routine 12/23/2021 1:37 PM Need for hepatitis Res ults for this CDT C screening test procedure a re in the results section. CBC WITH AUTO STAT 12/19/2021 3:00 AM Results for this DIFFERENTIAL CDT procedure are i n the results section. LIPASE STAT 12/19/2021 3:00 AM Results f or this CDT procedure are i n the results section. HEPATIC FUNCTION STAT 12/19/2021 3:00 AM Resul ts for this PANEL CDT procedure are i n the results section. BASIC METABOLIC PANEL STAT 12/19/2021 3:00 AM Results for this CDT procedure are i n the results section. CBC WITH AUTO STAT 12/19/2021 3:00 AM Results for this DIFFERENTIAL CDT procedure are i n the results section. ED FAST ULTRASOUND Routine 12/19/2021 2:18 AM CDT CBC WITH AUTO STAT 12/18/2021 1:45 PM Epigastric pain Resul ts for this DIFFERENTIAL CDT procedure are i n the results section. C-REACTIVE PROTEIN STAT 12/18/2021 1:45 PM Epigastric pain Results for this CDT procedure are i n the results section. LIPASE STAT 12/18/2021 1:45 PM Epigastric pain Result s for this CDT procedure are i n the results section. COMP METABOLIC PANEL STAT 12/18/2021 1:45 PM Epigastric viv n Results for this CDT procedure are i n the results section. CBC WITH AUTO STAT 12/18/2021 1:45 PM Epigastric pain Resul ts for this DIFFERENTIAL CDT procedure are i n the results section. CBC WITH AUTO STAT 12/10/2021 11:46 Results fo r this DIFFERENTIAL AM CDT procedure are i n the results section. BRAIN NATRIURETIC STAT 12/10/2021 11:46 Result s for this PEPTIDE AM CDT procedure are i n the results section. LIPASE STAT 12/10/2021 11:46 Results for this AM CDT procedure are i n the results section. TROPONIN I STAT 12/10/2021 11:46 Results for this AM CDT procedure are i n the results section. D-DIMER,QUANTITATIVE STAT 12/10/2021 11:46 Res ults for this AM CDT procedure are i n the results section. COMP METABOLIC PANEL STAT 12/10/2021 11:46 Res ults for this AM CDT procedure are i n the results section. CBC WITH AUTO STAT 12/10/2021 11:46 Results fo r this DIFFERENTIAL AM CDT procedure are i n the results section. EKG 12 LEAD STAT 12/10/2021 11:19 Results for this AM CDT procedure are i n the results section. XR CHEST 1 VIEW STAT 12/10/2021 10:48 Results for this PORTABLE AM CDT procedure are i n the results section. RED CELL MORPHOLOGY STAT 11/15/2021 6:32 AM [...] results section. from Last 3 Months Results ANTI HCV (12/23/2021 1:37 PM CDT) Patholo gist Method Time Signature HEPATITIS C Non-Reacti Non-Reacti 12/24/2021 [employer] ANTIBODY ve ve 7:21 PM CDT LABORATORY-[facility] LABORATORY Comment: Antibodies to HCV not detected; does not exclude the possibility of exposure to HCV. Specimen Anatomical Collection Method / Collection Time Recei alberta Time (Source) Location / Volume Laterality Blood BLOOD SPECIMEN / Venipuncture / 12/23/2021 1:37 2021 1:39 Unknown Unknown PM CDT PM CDT Jackson KAM SEND OUTS Performing Organization Address City/State/ZIP Code Phon e Number [employer] [address] [place] [address] LABORATORY-CENTRAL 2000 LABORATORY POTASSIUM (12/23/2021 1:37 PM CDT) athologist Signature POTASSIUM 3.9 3.5 - 5.0 12/23/2021 [place] mmol/L 2:14 PM CDT [facility] LABORATORY Specimen Anatomical Collection Method / Collection Time Recei alberta Time (Source) Location / Volume Laterality Blood BLOOD SPECIMEN / Venipuncture / 12/23/2021 1:37 2021 1:39 Unknown Unknown PM CDT PM CDT Jackson KAM CHEMISTRY Performing Organization Address City/[facility]/ZIP Code Phon e Number [facility] LABORATORY [address] [place] [address] (ABNORMAL) CBC WITH AUTO DIFFERENTIAL (12/19/2021 3:00 AM CDT)Only the most recent of5 resultswithin the time period is included. [facility] gist Method Time Signature WHITE BLOOD 6.5 4.5 - 12/19/2021 [place] COUNT 11.0 3:14 AM T [facility] thou/cu LABORATORY mm RED BLOOD COUNT 4.13 (L) 4.30 - 12/19/2021 [place] 5.90 3:14 AM T [facility] mil/cu mm LABORATORY HEMOGLOBIN 14.4 13.5 - 12/19/2021 [place] 17.5 g/dL 3:14 AM T [facility] LABORATORY HEMATOCRIT 40.8 37.0 - 12/19/2021 [place] 53.0 % 3:14 AM [facility]T [facility] MCV 99 80 - 100 12/19/2021 [place] fL 3:14 AM [facility] LABORATORY MCH 34.9 (H) 26.0 - 12/19/2021 [place] 34.0 pg 3:14 AM [facility] LABORATORY MCHC 35.3 32.0 - 12/19/2021 [place] 36.0 g/dL 3:14 AM [facility] LABORATORY RDW 13.1 11.5 - 12/19/2021 [place] 15.5 % 3:14 AM [facility] LABORATORY PLATELET COUNT 202 140 - 440 12/19/2021 [place] thou/cu 3:14 AM [facility] mm LABORATORY MPV 10.3 6.5 - 12/19/2021 [place] 11.0 fL 3:14 AM [facility] LABORATORY % NEUT 69.1 % 12/19/2021 [place] 3:14 AM [facility] LABORATORY % LYMPH 19.0 % 12/19/2021 [place] 3:14 AM [facility] LABORATORY % MONO 7.7 % 12/19/2021 [place] 3:14 AM [facility] LABORATORY % EOS 3.7 % 12/19/2021 [place] 3:14 AM [facility] LABORATORY % BASO 0.5 % 12/19/2021 [place] 3:14 AM [facility] LABORATORY ABSOLUTE 4.5 1.7 - 7.0 12/19/2021 [place] NEUTROPHILS thou/cu 3:14 AM [facility] mm LABORATORY ABSOLUTE 1.2 0.9 - 2.9 12/19/2021 [place] LYMPHOCYTES thou/cu 3:14 AM [facility] mm LABORATORY ABSOLUTE 0.5 <0.9 12/19/2021 [place] MONOCYTES thou/cu 3:14 AM [facility] mm LABORATORY ABSOLUTE 0.2 <0.5 12/19/2021 [place] EOSINOPHILS thou/cu 3:14 AM [facility] mm LABORATORY ABSOLUTE 0.0 <0.3 12/19/2021 [place] BASOPHILS thou/cu 3:14 AM [facility] mm LABORATORY Specimen Anatomical Collection Method Collection Time Receive d Time (Source) Location / / Volume Laterality Blood BLOOD SPECIMEN / Butterfly / 12/19/2021 3:00 AM 12/19 3:11 Unknown Unknown CDT AM CDT Venita Lovett MD HEMATOLOGY Performing Organization Address [facility] Phon e Number [facility] LABORATORY [address] [place] [address] LIPASE (12/19/2021 3:00 AM CDT)Only the most recent of5 resultswithin the time period is included. P athologist Signature LIPASE 48.3 8.0 - 78.0 12/19/2021 [place] IU/L 3:33 AM [facility] LABORATORY Specimen Anatomical Collection Method Collection Time Receive d Time (Source) Location / / Volume Laterality Blood BLOOD SPECIMEN / Butterfly / 12/19/2021 3:00 AM 12/19 3:11 Unknown Unknown CDT AM CDT Venita Lovett MD CHEMISTRY Performing Organization Address [facility] Phon e Number [facility] LABORATORY [address] [place] [address] (ABNORMAL) HEPATIC FUNCTION PANEL (12/19/2021 3:00 AM CDT)Only the most recent of3 resultswithin the time period is included. Analysis Performed At Patho logist Time Signature ALBUMIN 3.5 3.5 - 5.2 12/19/2021 [place] g/dL 3:32 AM [facility] LABORATORY PROTEIN,TOTAL 6.0 6.0 - 8.0 12/19/2021 [place] g/dL 3:32 AM [facility] LABORATORY GLOBULIN 2.5 2.0 - 3.7 12/19/2021 [place] g/dL 3:32 AM [facility] LABORATORY A/G RATIO 1.4 1.0 - 2.0 12/19/2021 [place] 3:32 AM [facility] LABORATORY BILIRUBIN,TOTAL 0.6 0.2 - 1.2 12/19/2021 [place] mg/dL 3:32 AM [facility] LABORATORY BILIRUBIN,DIRECT 0.3 0.1 - 0.5 12/19/2021 [place] mg/dL 3:32 AM [facility] LABORATORY BILIRUBIN,INDIRE 0.3 0.2 - 0.8 12/19/[address] [place] [address] mg/dL 3:32 AM [facility] LABORATORY ALK PHOSPHATASE 118 50 - 136 12/19/2021 [place] IU/L 3:32 AM [facility] LABORATORY ALT (SGPT) 93 (H) 8 - 45 12/19/2021 [place] IU/L 3:32 AM [facility] LABORATORY AST (SGOT) 48 (H) 2 - 40 12/19/2021 [place] IU/L 3:32 AM [facility] LABORATORY Specimen Anatomical Collection Method Collection Time Receive d Time (Source) Location / / Volume Laterality Blood BLOOD SPECIMEN / Butterfly / 12/19/2021 3:00 AM 12/19 3:11 Unknown Unknown CDT [facility] Venita Lovett MD CHEMISTRY Performing Organization Address City/State/ZIP Code Phon e Number [facility] LABORATORY [address] [place] [address] (ABNORMAL) BASIC METABOLIC PANEL (12/19/2021 3:00 AM CDT)Only the most recent of 3 resultswithin the time period is included. Analysis Performed At Patho logist Time Signature SODIUM 139 135 - 145 12/19/2021 [place] mmol/L 3:32 AM [facility] LABORATORY POTASSIUM 2.8 (L) 3.5 - 5.0 12/19/2021 [place] mmol/L 3:32 AM [facility] LABORATORY CHLORIDE 102 98 - 110 [facility] 3:32 AM [facility] LABORATORY CO2,TOTAL 24 21 - 31 12/19/2021 [place] mmol/L 3:32 AM [facility] LABORATORY ANION GAP 13 5 - 18 12/19/2021 [place] 3:32 AM [facility] LABORATORY GLUCOSE 145 (H) 65 - 100 12/19/2021 [place] mg/dL 3:32 AM [facility] LABORATORY CALCIUM 8.4 (L) 8.5 - 10.5 12/19/2021 [place] mg/dL 3:32 AM [facility] LABORATORY BUN 8 8 - 25 12/19/2021 [place] mg/dL 3:32 AM [facility] LABORATORY CREATININE 0.72 0.72 - 12/19/2021 [place] 1.25 mg/dL 3:32 AM [facility] LABORATORY BUN/CREAT RATIO 11 10 - 20 12/19/2021 [place] 3:32 AM [facility] LABORATORY eGFR >90 >90 12/19/2021 [place] mL/min/1.7 3:32 AM [facility] 3m2 LABORATORY Comment: As of 2021, eGFR is calcu lated by the CKD-EPI creatinine equation without race adjustment. eGFR can be inf luenced by muscle mass, exercise, and diet. The reported eGFR is an estimation only and is only applicable if the renal function is stable. Specimen Anatomical Collection Method Collection Time Receive d Time (Source) Location / / Volume Laterality Blood BLOOD SPECIMEN / Butterfly / 12/19/2021 3:00 AM 12/19 3:11 Unknown Unknown CDT AM CDT Venita Lovett MD CHEMISTRY Performing Organization Address [facility] Phon [facility] LABORATORY [address] [place] [address] (ABNORMAL) C-REACTIVE PROTEIN (12/18/2021 1:45 PM CDT)Only the most recent of2 resultswithin the time period is included. [facility] Signature C-REACTIVE 0.56 (H) <0.50 12/18/2021 [place] PROTEIN mg/dL 2:23 PM [facility] LABORATORY Specimen Anatomical Collection Method / Collection Time Recei alberta Time (Source) Location / Volume Laterality Blood BLOOD SPECIMEN / Venipuncture / 12/18/2021 1:45 2021 1:46 Unknown Unknown PM CDT PM CDT Stephanie Beard NP CHEMISTRY Performing Organization Address [facility] Phon e [facility] LABORATORY [address] [place] [address] (ABNORMAL) COMP METABOLIC PANEL (12/18/2021 1:45 PM CDT)Only the most recent of2 resultswithin the time period is included. [facility] Method Time Signature SODIUM 137 135 - 145 12/18/2021 [place] mmol/L 2:27 PM CDT [facility] POTASSIUM 3.1 (L) 3.5 - 5.0 12/18/2021 [place] mmol/L 2:27 PM [facility] LABORATORY CHLORIDE 98 98 - 110 12/18/2021 [place] mmol/L 2:27 PM [facility] LABORATORY CO2,TOTAL 29 21 - 31 12/18/2021 [place] mmol/L 2:27 PM [facility] LABORATORY ANION GAP 10 5 - 18 12/18/2021 [place] 2:27 PM [facility] LABORATORY GLUCOSE 110 (H) 65 - 100 12/18/2021 [place] mg/dL 2:27 PM [facility] LABORATORY CALCIUM 8.4 (L) 8.5 - 10.5 12/18/2021 [place] mg/dL 2:27 PM [facility] LABORATORY BUN 11 8 - 25 12/18/2021 [place] mg/dL 2:27 PM [facility] LABORATORY CREATININE 0.74 0.72 - 12/18/2021 [place] 1.25 mg/dL 2:27 PM [facility] LABORATORY BUN/CREAT RATIO 15 10 - 20 12/18/2021 [place] 2:27 PM [facility] LABORATORY ALBUMIN 3.9 3.5 - 5.2 12/18/2021 [place] g/dL 2:27 PM [facility] LABORATORY PROTEIN,TOTAL 6.7 6.0 - 8.0 12/18/2021 [place] g/dL 2:27 PM [facility] LABORATORY GLOBULIN 2.8 2.0 - 3.7 12/18/2021 [place] g/dL 2:27 PM [facility] LABORATORY A/G RATIO 1.4 1.0 - 2.0 12/18/2021 [place] 2:27 PM [facility] LABORATORY BILIRUBIN,TOTAL 1.2 0.2 - 1.2 12/18/2021 [place] mg/dL 2:27 PM [facility] LABORATORY ALK PHOSPHATASE 135 50 - 136 12/18/2021 [place] IU/L 2:27 PM [facility] LABORATORY ALT (SGPT) 120 (H) 8 - 45 12/18/2021 [place] IU/L 2:27 PM [facility] LABORATORY AST (SGOT) 78 (H) 2 - 40 12/18/2021 [place] IU/L 2:27 PM [facility] LABORATORY eGFR >90 >90 12/18/2021 [place] mL/min/1.7 2:27 PM [facility] 3m2 LABORATORY Comment: As of 2021, [...] Laterality Blood BLOOD SPECIMEN / Venipuncture / 12/18/2021 1:45 2021 1:46 Unknown Unknown PM CDT PM CDT Stephanie Beard HSE ADVISOR CHEMISTRY Performing Organization Address City/[facility] LABORATORY [address] [place] [address] TROPONIN I (12/10/2021 11:46 AM CDT) athologist Signature TROPONIN I <0.010 <0.034 12/10/2021 [place] ng/mL 12:24 PM T [facility] LABORATORY Specimen Anatomical Collection Method Collection Time Receive d Time (Source) Location / / Volume Laterality Blood BLOOD SPECIMEN / IV Start / Unknown 12/10/2021 11:46 1 Unknown AM CDT 11:50 AM CDT Kristy Weaver HSE ADVISOR CHEMISTRY Performing Organization Address City/[facility] LABORATORY [address] [place] [address] (ABNORMAL) BRAIN NATRIURETIC PEPTIDE (12/10/2021 11:46 AM CDT) P athologist Signature BRAIN ANITA 100 (H) <100 pg/mL 12/10/2021 [place] PEPTIDE 12:25 PM T [facility] LABORATORY Specimen Anatomical Collection Method Collection Time Receive d Time (Source) Location / / Volume Laterality Blood BLOOD SPECIMEN / IV Start / Unknown 12/10/2021 11:46 1 Unknown AM CDT 11:50 AM CDT Kristy Weaver NP CHEMISTRY Performing Organization Address [facility] Phon e Number [facility] LABORATORY [address] [place] [address] D-DIMER,QUANTITATIVE (12/10/2021 11:46 AM CDT) athologist Signature D-DIMER,QUANTI 0.30 <0.50 FEU 12/10/2021 [facility] mcg/mL FEU 12:17 PM CDT [facility] mcg/mL LABORATORY Specimen Anatomical Collection Method Collection Time Receive d Time (Source) Location / / Volume Laterality Blood BLOOD SPECIMEN / IV Start / Unknown 12/10/2021 11:46 1 Unknown AM CDT 11:50 AM CDT [facility] LABORATORY - 12:17 PM CDT The cut off value for exclusion of Deep Vein Thrombosis and / or Pulmonary Embolism is 0.50 FEU mcg/mL For patients greater than 50 years of ag e the upper limit is age dependent and was calculated with the formula: ?? (PATIENT AGE x 0.01) FEU mcg/mL = Upper limit of normal range Kristy Weaver NP HEMATOLOGY Performing Organization Address [facility] Phon e Number [facility] LABORATORY [address] [place] [address] EKG 12 LEAD (12/10/2021 11:19 AM CDT) Component Value Ref Range Test Analysis Performed Pathologis t Method Time At Signature Interpretation Sinus bradycardia BEYOND NOW Otherwise normal ECG Ventricular Rate 56 BPM BEYOND NOW Atrial Rate 56 BPM BEYOND NOW P-R Interval 160 ms BEYOND NOW QRS Duration 90 ms BEYOND NOW QT 450 ms BEYOND NOW QTc 434 ms BEYOND NOW P [place] 13 degrees BEYOND NOW R [place] 3 degrees BEYOND NOW T [place] 8 degrees BEYOND NOW Specimen Anatomical Collection Method Collection Time Receive d Time (Source) Location / / Volume Laterality 12/10/2021 11:19 12/10/2021 AM CDT 10:10 PM CDT Kristy Weaver HSE ADVISOR EKG ORD Performing Organization Address [facility]/ZIP [facility] Phon e Number BEYOND NOW [place], [place] XR CHEST 1 VIEW PORTABLE (12/10/2021 10:48 AM CDT) Anatomical Region Laterality Modality HEART, THORAX, CHEST Digital Radiography Specimen (Source) Anatomical Collection Method Collection Time Re ceived Time Location / / Volume Laterality 12/10/2021 10:56 AM CDT Impressions 12/10/2021 10:56 AM CDT Normal chest. Dictated by Williams Velasquez MD @ 12/10/2021 10:56 :08 AM (Electronically Signed) Narrative 12/10/2021 10:56 AM CDT For Patients: ??As a result of the Cures Act, medical imaging exams and procedure report s are released immediately into your [email or web address] medical record. ??You may view this report before your referring provider. ??If you have questions, please contact your health care provider. INDICATION: Breathing problems. TECHNIQUE: Chest 1 view. COMPARISON: None FINDINGS: Cardiovascular and mediastinum: Heart si ze and vasculature are normal in caliber and appearance. Mediastinum is within normal limits. Lungs and pleural spaces: Lungs are samira r. No sign of infiltrate or mass. No central bronchial wall thickening. No pleural effusion or pneumothorax. Bones and soft tissues: No significant f indings. Procedure Note Uli Velasquez MD - 12/10/2021F ormatting of this note might be different from the original. For Patients: As a result of the Cures Act, medical imaging exams and procedure reports are released immediately into your electronic medical record. You may view this report before your referring provider. If you have questions, please contact [facility] provider. INDICATION: Breathing problems. TECHNIQUE: Chest 1 view. COMPARISON: None FINDINGS: Cardiovascular and mediastinum: Heart si ze and vasculature are normal in caliber and appearance. Mediastinum is within normal limits. Lungs and pleural spaces: Lungs are samira r. No sign of infiltrate or mass. No central bronchial wall thickening. No pleural effusion or pneumothorax. Bones and soft tissues: No significant f indings. IMPRESSION: Normal chest. Dictated by Williams Velasquez MD @ 12/10/2021 10:56 :08 AM (Electronically Signed) Kristy Weaver NP GENERAL IMAGING RED CELL MORPHOLOGY (11/15/2021 6:32 AM CDT) [facility] Method Time Signature RBC COMMENT RBC [...] Kory Reynoso MD HEMATOLOGY Performing Organization Address City/[facility]/ZIP Code Phon e Number [facility] [address] [place] [address] PLATELET ESTIMATE (11/15/2021 6:32 AM CDT) [facility] gist Method Time Signature PLATELET Adequate Adequate, No 11/15/2021 [place] ESTIMATE estimate 6:59 AM [facility] Specimen Anatomical Collection Method / Collection Time Recei alberta Time (Source) Location / Volume Laterality Blood BLOOD SPECIMEN / Venipuncture / 11/15/2021 6:32 2021 6:35 Unknown Unknown AM CDT AM CDT Kory Reynoso MD HEMATOLOGY Performing Organization Address City/[facility]/ZIP Code Phon e Number [facility] [address] [place] [address] MANUAL DIFFERENTIAL (11/15/2021 6:32 AM CDT) P athologist Signature % NEUTROPHILS 69.0 % 11/15/2021 [place] 6:59 AM CDT [facility] % LYMPHOCYTES 20.0 % 11/15/2021 [place] 6:59 AM CDT [facility] % MONOCYTES 8.0 % 11/15/2021 [place] 6:59 AM CDT [facility] % EOSINOPHILS 3.0 % 11/15/2021 [place] 6:59 AM CDT [facility] % BASOPHILS 0.0 % 11/15/2021 [place] 6:59 AM CDT [facility] NEUTROPHILS 3.9 1.7 - 7.0 11/15/2021 [place] ABSOLUTE thou/cu mm 6:59 AM CDT [facility] LYMPHOCYTES 1.1 0.9 - 2.9 11/15/2021 [place] ABSOLUTE thou/cu mm 6:59 AM CDT [facility] MONOCYTES 0.5 <0.9 11/15/2021 [place] ABSOLUTE thou/cu mm 6:59 AM T [facility] EOSINOPHILS 0.2 <0.5 11/15/2021 [place] ABSOLUTE thou/cu mm 6:59 AM T [facility] BASOPHILS 0.0 <0.3 11/15/2021 [place] ABSOLUTE thou/cu mm 6:59 AM T [facility] Specimen Anatomical Collection Method / Collection Time Recei alberta Time (Source) Location / Volume Laterality Blood BLOOD SPECIMEN / Venipuncture / 11/15/2021 6:32 2021 6:35 Unknown Unknown AM CDT AM CDT Kory Reynoso MD HEMATOLOGY Performing Organization Address [facility] Phon e Number [facility] [address] [place] [address] (ABNORMAL) ETHANOL SERUM OR PLASMA (11/11/2021 12:14 PM CDT) P athologist Signature ETHANOL 0.232 (H) <0.010 11/11/2021 [place] g/dL 12:41 PM T [facility] Specimen Anatomical Collection Method Collection Time Receive d Time (Source) Location / / Volume Laterality Blood BLOOD SPECIMEN / Capillary / 11/11/2021 12:14 022 Unknown Unknown PM CDT 12:21 PM CDT Jules Fitzpatrick MD CHEMISTRY Performing Organization Address City/[facility] Phon e Number [facility] [address] [place] [address] MAGNESIUM (11/11/2021 12:14 PM CDT) P athologist Signature MAGNESIUM 2.0 1.6 - 2.6 11/11/2021 [place] mg/dL 12:43 PM T [facility] Specimen Anatomical Collection Method Collection Time Receive d Time (Source) Location / / Volume Laterality Blood BLOOD SPECIMEN / Capillary / 11/11/2021 12:14 022 Unknown Unknown PM CDT 12:21 PM CDT Jules Fitzpatrick MD CHEMISTRY Performing Organization Address City/State/ZIP Code Phon e Number [facility] [address] [place] [id number] from Last 3 Months Insurance Payer Benefit Plan / Subscriber ID Effective Dates Phone Addre ss Type Group [facility] [id number] 2018-Present [address] [address] [place] [address] Juan Ramon Granados Personal/Family Self 1975 [address] (Home) [place] [address] Advance Directives Latest Code Status on File [...] 1:12 PM 09/28/2016 9:55 PM Care Teams Adjunct Psychology Instructor Relationship Specialty Start Date End Date Melisa Delgado NP PCP - General Family Practice 04/05/14 100 [facility] [place] [address]
--- OUTSIDE RECORDS SUMMARY | 2022-01-27 11:52 | XMS_ITS | Encounter Summary ---
:1975 Author Organization [employer] Address [address], [place] [address] Care Team Providers Name Role Phone Aydin Morales MD Primary Care Provider Encounter Details Date Type Department Care Team Description 12/10/2020 Orders Only Initial Department Provider[facility] DEMETRIA GARRETT MD [place], [place] [address] Interface provider [phone] [place] [address] Social History Tobacco Use Types Packs/Day Years [...] on filedocumented in this encounter Care Teams Foot Orthopedist Relationship Specialty Start Date End Date Aydin Morales MD PCP - General 08/29/13 1001 [facility] [address] [place] [address] documented as of this encounter
--- OUTSIDE RECORDS SUMMARY | 2022-01-27 11:52 | XMS_ITS | Encounter Summary ---
:1975 Author Organization [facility] Address [address], [place] [address] Care Team Providers Name Role Phone Aydin Morales MD Primary Care Provider Encounter Details Date Type Department Care Team Description 12/18/2013 Notes/Orders [facility] Mateus Piña, Seth y, elective CENTER (Primary Dx) 8100 [facility] [address] [place] [address] [place] [address] [place], [place] [phone] (Wo rk) Social History Tobacco Use Types Packs/Day Years Used Date Smoking Tobacco: Never Assessed Sex Assigned at Date Recorded Not on file documented as of this encounter Plan of Treatment Not on filedocumented as of this encounter Visit Diagnoses Diagnosis Surgery, elective - Primary Unspecified elective surgery for purpose s other than remedying health states documented in this encounter Care Teams Flame Annealing Machine Operator Relationship Specialty Start Date End Date Aydin Morales MD PCP - General 08/29/13 1001 [facility] [address] [place], [place] [address] documented as of this encounter
--- OUTSIDE RECORDS SUMMARY | 2022-01-27 11:52 | XMS_ITS | Encounter Summary ---
:1975 Author Organization [employer] Address [address] [place] [address] Care Team Providers Name Role Phone Aydin Morales MD Primary Care Provider Reason for Visit Reason Comments Refill Encounter Details Date Type Department Care Team Description 01/29/2014 Refill [facility] MYLA TER Mateus Piña MD Refill [address] [facility] [place] [address] [place] [address] 1 [place] [address] [phone] (Wo rk) Social History Tobacco Use Types Packs/Day Years Used Date Smoking Tobacco: Never Assessed Sex Assigned at Date Recorded Not on file documented as of this encounter Nursing Notes Renee Stevens RN - 01/29/2014 2:06 PM CST Refill approved per provider and script placed at [facility] desk. Pt notified of refill approval andalso message from provider that this would be the last refill for him. Pt verbalized understanding. AID MACHINE OPERATOR Renee Stevens RN - 01/29/2014 11:24 AM CST Pt called to request a [place] refill; his last refill was 12/23/13 for 40#. Pt is S/P Right Shoulder Arthroscopic SLAP; DOS was 12/19/13. Please approve or advise. AID MACHINE OPERATOR documented in this encounter Plan of Treatment Not on filedocumented as of this encounter Visit Diagnoses Not on filedocumented in this encounter Care Teams Code Inspector Relationship Specialty Start Date End Date Aydin Morales MD PCP - General 08/29/13 1001 [facility] [address] [place] [address] documented as of this encounter
--- OUTSIDE RECORDS SUMMARY | 2022-01-27 11:52 | XMS_ITS | Encounter Summary ---
:1975 Author Organization [employer] [facility] Address [address], [place] [address] Care Team Providers Name Role Phone Aydin Morales MD Primary Care Provider Encounter Details Date Type Department Care Team Description 12/10/2020 Anesthesia Event [facility] Segundo Wetzel, 8100 [facility] Kashif gross MD [place], [place] [address]159 [facility] [phone] [place] [address] (Wo rk) Anesthesia Record Procedure Summary Procedure [...] air exchange. 1349 An Tourn Inflated 1403 MD/ Present 1441 an stop data 1446 Care [...] Knee; 12/10/20 1351 by 1 1618 by [facility], Site Anterior, Right; Frances Marinelli Disconti nue [...] 3.5 in Attempts: 1 Redirects: 1 Monitoring: potline monitor and continuous pulse ox CSF: adequate CSF [...] Narrative EXTERNAL RESULTS - 12/10/2020 1:39 PM YUMIKO T Segundo Wetzel MD ? 12/10/2020 ??2:26 [...] 3.5 in Attempts: 1 Redirects: 1 Monitoring: potline monitor and continuo us pulse ox CSF: ??adequate [...] mL/hr documented in this encounter Care Teams Lead Project Manager Relationship Specialty Start Date End Date Aydin Morales MD PCP - General 08/29/13 1001 [facility] [address] [place] [address] documented as of this encounter
--- OUTSIDE RECORDS SUMMARY | 2022-01-27 11:52 | XMS_ITS | Encounter Summary ---
:1975 Author Organization [facility] Hospital[facility] Address [address] [place] [address] Care Team Providers Name Role Phone Aydin Morales MD Primary Care Provider Reason for Visit Reason Comments Refill Encounter Details Date Type Department Care Team Description 12/20/2013 Refill [facility] MYLA Mateus Villa MD Refill [address] [facility] [address] [place] [address] [place] 55[address] 1 [place] [address] [phone] (Wo rk) Social History Tobacco Use Types [...] on filedocumented in this encounter Care Teams Survey Technologist Relationship Specialty Start Date End Date Aydin Morales MD PCP - General 08/29/13 1001 [facility] [address] [place] [address] documented as of this encounter
--- OUTSIDE RECORDS SUMMARY | 2022-01-27 11:52 | XMS_ITS | Encounter Summary ---
:1975 Author Organization [employer] Address [address] [place] [address] Care Team Providers Name Role Phone Aydin Morales MD Primary Care Provider Reason for Referral Procedure/Equipment (Routine) - Closed Specialty Diagnoses / Procedures Referred By Contact Refer red To Contact Diagnoses Effusion of right knee Sourav Ramirez MD Procedures MR Knee Rt WO IV Cont [address] [facility] [address] [place] [address] Referral ID Status Reason Start Date Expiration Date Visits Requ ested Visits Authorized [id number] Closed 08/13/2021 11/12/2022 1 1 Procedure/Equipment (Routine) - Incomplete Specialty Diagnoses / Procedures Referred By Contact Refer red To Contact Diagnoses Acute pain of right knee Effusion of right knee Sourav Ramirez MD Procedures XR Knee Lt 1-2 Views Comparison [address] [facility] [address] [place] [address] Referral ID Status Reason Start Date Expiration Date Visits V isits Requested Authorized [id number] Incomplete 08/13/2021 11/12/2022 1 1 Procedure/Equipment (Routine) - Incomplete Specialty Diagnoses / Procedures Referred By Contact Refer red To Contact Diagnoses Acute pain of right knee Effusion of right knee Sourav Ramirez MD Procedures XR Knee Rt 3 Views [address] [facility] [place] [address] Referral ID Status Reason Start Date Expiration Date Visits V isits Requested Authorized [id number] Incomplete 08/13/2021 11/12/2022 1 1 Reason for Visit Reason Comments SWELLING, KNEE Right Encounter Details Date Type Department Care Team Description 08/13/2021 Office Visit [facility] Sourav Ramirez Acute p ain of right knee (Primary Dx); Urgent Care MD Amberly Effusion of right knee [address] [facility] [address] [facility] [place] [address] [place] [phone] (Wo rk) Social History Tobacco Use Types [...] Dr. Xochilt Ramirez MD [facility], [place] [facility] Nurse Line: [phone] Please contact Orthopedic Urgent Care line for all requests and questions. Medication Requests: Prescriptions are not filled on Weekends or on Weekdays after 3:00PM For all medication refills: Request a refill using GetBulb or contact your Pharmacy To schedule appointments: [phone] Paperwork Requests: FMLA or disability paperwork can be faxed to: [phone] Medical records: [phone] (option 4) STEVE Worker's Compensation Services E-mail Address: [email or web address] Schedule MRI Follow up here in [facility] [...] Other pain medications have acetaminophen in the ([place], Fiorcet, Percocet). documented in this encounter Progress [...] Sourav Ramirez MD [facility] Orthopedic [facility] Orth[facility] Ur[facility] Care documented in [...] MR KNEE RT WO IV CONT LOCATION: [facility] DATE/TIME: 08/18/2021 12:10 PM INDICATION: Knee [...] is intact. -Pes anserine tendons are normal. Heel Room Supervisor omedial corner complex ligaments are intact. [...] MR KNEE RT WO IV CONT LOCATION: [facility] DATE/TIME: 08/18/2021 12:10 PM INDICATION: Knee [...] is intact. -Pes anserine tendons are normal. Heel Room Supervisor omedial corner complex ligaments are intact. [...] joint documented in this encounter Care Teams Storage Worker Relationship Specialty Start Date End Date Aydin Morales MD PCP - General 08/29/13 1001 [facility] 100 [place] [address] documented as of this encounter
--- OUTSIDE RECORDS SUMMARY | 2022-01-27 11:52 | XMS_ITS | Encounter Summary ---
:1975 Author Organization [facility] Address [address] [place] [address] Care Team Providers Name Role Phone Aydin Morales MD Primary Care Provider Encounter Details Date Type Department Care Team Description 12/19/2013 Hospital Encounter TRIShanique Wright MD [facility] [address] [place] [address] 8100 [place] [address] [place], [place] [address] [phone] Social History Tobacco Use Types Packs/Day Years [...] Service: (none) Author Type: Physician Filed: 12/19/13 1539 Note Time: 12/19/131534 Status: Signed Roll Examiner: Mateus Piña MD (Physician) [facility] Patient Name: Juan Ramon Granados Procedure Date: 12/19/2013 3:21 PM Date of : 1975 Age: 38 Gender: Male Attending MD: Mateus Piña, Procedure: Right Shoulder Arthroscopic SLAP (Superior Labrum, [...] 2 weeks. Procedure Code(s): --- Professional --- 91061, RT, Arthroscopy, shoulder, surgical; repair of SLAP lesion 53798, Tenodesis of long tendon of biceps Diagnosis Code(s): --- Professional --- 840.7, Superior glenoid labrum lesion 726.12, Bicipital tenosynovitis CPT (R) 2012 [employer]. All Rights Reserved. The codes documented in this report are preliminary and upon certified professional coder review may be revised to meet [...] Nam MD - 12/19/2013 4:40 PM CDT [facility] 8100 [place] [address] Surgical Summary 12/19/2013 Admission Juan Ramon Granados MRN: : [id number] Admission Information Department Dept Phone Hosp. Acct. # 12/19/2013 10:12 AM [facility] [place] [phone] Admitting Provider Information Provider Pager Service Admission [...] doses are changed, or new medications (including dyek-vck-dtdqsag products) are added. You are also encouraged to carry medication information at all times in the event of emerge ncy situations. Nurse initals that this was reviewed with the patient. Future Appointments Provider Department Dept Phone 01/04/2014 10:00 AM Mitch Boone [facility] [phone] Patient Belongings Most Recent Value Patient Belongings Clothing Plastic Bag Plastic Bag Sent Safe Patient Instructions None Appointments for Next 60 Days 01/04/2014 10:00 AM POST-OP [facility] [[id number]] 30 min Please arrive 15 minutes prior [...] the East: Take [address] to the [facility] exit. Turn left on [address] and proceed to [address] Turn left at the stoplight on [address] Turn left on [address] and follow it to the [employer] parking ramp. From the West: Take [address] to the [facility] exit. Turn right on [address] and proceed to [address] Turn left at the stoplight on [address] Turn left on [address] and follow it to the [facility] parking ramp. ` Nurse Signature: Date: ` Patient Signature: Date: documented in this encounter Plan of Treatment Not on filedocumented as of this encounter Visit Diagnoses Not on filedocumented in this encounter Care Teams Technical Producer Relationship Specialty Start Date End Date Aydin Morales MD PCP - General 08/29/13 1001 [facility] [address] [place] [address] documented as of this encounter
--- OUTSIDE RECORDS SUMMARY | 2022-01-27 11:52 | XMS_ITS | Encounter Summary ---
:1975 Author Organization [facility] Address [address] [place] [address] Care Team Providers Name Role Phone Aydin Morales MD Primary Care Provider Reason for Visit Reason Onset Date Comments Refill 12/12/2020 Encounter Details Date Type Department Care Team Description 12/12/2020 Refill [facility] MYLA Isaac Bentley MD Refill [address] [facility] [address] 8100 [facility] [place] [address] 1 [place], [place] [address] (Wo rk) Social History Tobacco Use Types [...] status documented in this encounter Care Teams Graphic Artist Relationship Specialty Start Date End Date Aydin Morales MD PCP - General 08/29/13 1001 [facility] 100 [place] [address] documented as of this encounter
--- OUTSIDE RECORDS SUMMARY | 2022-01-27 11:52 | XMS_ITS | Encounter Summary ---
:1975 Author Organization [employer] Address [address] [place] [address] Care Team Providers Name Role Phone Aydin Morales MD Primary Care Provider Reason for Visit Procedure/Equipment (Routine) - Incomplete Specialty Diagnoses / Procedures Referred By Contact Refer red To Contact Diagnoses Chronic pain of right knee Isaac Peña MD Procedures XR Knee Lt 1-2 Views Comparison [address] [place] [address] [place] [address] 1 Referral ID Status Reason Start Date Expiration Date Visits V isits Requested Authorized [id number] Incomplete 09/19/2020 12/19/2021 1 1 Encounter Details Date Type Department Care Team Description 09/19/2020 Ancillary [facility] Isaac Peña MD Chronic pain of Procedure [address] [place] [address] [place] [address] Social History Tobacco Use Types Packs/Day Years [...] knee documented in this encounter Care Teams Rn Unit Manager Relationship Specialty Start Date End Date Aydin Morales MD PCP - General 08/29/13 1001 [facility] 100 [place] [address] documented as of this encounter
--- OUTSIDE RECORDS SUMMARY | 2022-01-27 11:52 | XMS_ITS | Encounter Summary ---
:1975 Author Organization [employer] Address [address] [place] [address] Care Team Providers Name Role Phone Aydin Morales MD Primary Care Provider Reason for Visit Reason Comments Knee Problem right MRI results Encounter Details Date Type Department Care Team Description 11/21/2020 Office Visit [facility] Isaac Peña MD Chronic pain of right knee (Primary Dx); CENTER [address] [place] [address] Complex tear of medial meniscus of right knee as current injury, initial encounter; 8100 [place], [place] History of arthroscopy of ri ght knee; [place] [address] Primary osteoarthritis of right knee; [id number] Sprain of anterior cruciate ligament of right [...] 11/21/2020 9:20 AM CDT Juan Ramon Granados [id number] 1975 [facility] Orthopaedic Surgery Follow-Up 11/21/2020 Interval History: Juan [...] sequela documented in this encounter Care Teams Apron Man Relationship Specialty Start Date End Date Aydin Morales MD PCP - General 08/29/13 1001 [facility] 100 [place] [address] documented as of this encounter
--- OUTSIDE RECORDS SUMMARY | 2022-01-27 11:52 | XMS_ITS | Encounter Summary ---
:1975 Author Organization [facility] Address [address], [place] [address] Care Team Providers Name Role Phone Aydin Morales MD Primary Care Provider Encounter Details Date Type Department Care Team Description 12/19/2013 Notes/Orders [facility]LA Mateus Villa MD [address] [facility] [address] [place] [address] [place] [address] 1 [place] [address] [phone] (Wo rk) Social History Tobacco Use Types Packs/Day Years Used Date Smoking Tobacco: Never Assessed Sex Assigned at Date Recorded Not on file documented as of this encounter Plan of Treatment Not on filedocumented as of this encounter Visit Diagnoses Not on filedocumented in this encounter Care Teams Digester Cook Relationship Specialty Start Date End Date Aydin Morales MD PCP - General 08/29/13 1001 [facility] 100 [place] [address] documented as of this encounter
--- OUTSIDE RECORDS SUMMARY | 2022-01-27 11:52 | XMS_ITS | Encounter Summary ---
:1975 Author Organization [employer] Address [address] [place] [address] Care Team Providers Name Role Phone Aydin Morales MD Primary Care Provider Reason for Visit Procedure/Equipment (Routine) - Closed Specialty Diagnoses / Procedures Referred By Contact Refer red To Contact Diagnoses Chronic pain of right knee Isaac Peña MD Procedures MR Knee Rt WO IV Cont 8100 [facility] [place] [address] Referral ID Status Reason Start Date Expiration Date Visits Requ ested Visits Authorized [id number] Closed 09/19/2020 12/19/2021 1 1 Encounter Details Date Type Department Care Team Description 10/08/2020 Ancillary [facility] MRI Isaac Peña MD Chronic pain of Procedure 8100 [facility] [address] [facility] [address] [place] [address] [phone] Social History Tobacco Use Types Packs/Day Years [...] knee documented in this encounter Care Teams Beet Flumer Relationship Specialty Start Date End Date Aydin Morales MD PCP - General 08/29/13 1001 [facility] 100 [place] [address] documented as of this encounter
--- OUTSIDE RECORDS SUMMARY | 2022-01-27 11:52 | XMS_ITS | Encounter Summary ---
:1975 Author Organization [employer] Address [address] [place] [address] Care Team Providers Name Role Phone Aydin Morales MD Primary Care Provider Reason for Visit Reason Comments QUESTIONS, GENERAL Encounter Details Date Type Department Care Team Description 10/14/2020 Telephone [facility] Isaac Bentley MD QUESTIONS, GENERAL [address] [facility] [address] 8[address] [facility] [place], [place] [address] 1 [place] [address] [phone] (Wo rk) Social History Tobacco Use Types [...] medication can be prescribed at this time. Romana [place]kinse - 10/14/2020 4:36 PM CDT Has the patient recently had surgery or an injury? No How may we help you today? Patient is requesting a work in appointment to see Dr. Peña sooner thanthe . Have you been seen for this recently?: 09.19.20 Dr. Peña [Chair/Appt Center: If yes, please include date and provider.] Is it okay to leave detailed message on your voicemail? Yes [Chair/Appt Center: If this call is after 3 [...] on filedocumented in this encounter Care Teams Elastic Tape Inserter Relationship Specialty Start Date End Date Aydin Morales MD PCP - General 08/29/13 1001 [facility] 100 [place] [address] documented as of this encounter
--- OUTSIDE RECORDS SUMMARY | 2022-01-27 11:52 | XMS_ITS | Encounter Summary ---
:1975 Author Organization [employer] Address [address], [place] [address] Care Team Providers Name Role Phone Aydin Morales MD Primary Care Provider Encounter Details Date Type Department Care Team Description 12/10/2020 Notes/Orders [facility] TER Isaac Peña MD [address] [facility] [address] [place] [address] [place] [address] 1 [place] [address] [phone] (Wo rk) Social History Tobacco Use Types [...] on filedocumented in this encounter Care Teams Audit Director Relationship Specialty Start Date End Date Aydin Morales MD PCP - General 08/29/13 1001 [facility] 100 [place], [place] [address] documented as of this encounter
--- OUTSIDE RECORDS SUMMARY | 2022-01-27 11:52 | XMS_ITS | Encounter Summary ---
:1975 Author Organization [employer] Address [address] [place] [address] Care Team Providers Name Role Phone Aydin Morales MD Primary Care Provider Encounter Details Date Type Department Care Team Description 12/10/2020 Hospital Encounter [facility] Isaac Peña, Knee pain, right [facility]CS 8100 [facility] Kashif gross [address] [place] [address] [place], [place] [address] 1 [place], [place] [phone] Social History Tobacco Use Types Packs/Day Years [...] 1 Tablet by mouth 10 Tablet 0 0 07/2020 sodium (SENOKOT S) two times a day. While 8.6-50 MG per tablet taking narcotics citalopram (AKA CELEXA) Take 40 mg by mouth 0 08/26/2021 40 MG daily (every 24 tabletIndications: Pain hours). in joint, shoulder region oxyCODONE (ROXICODONE) Take 1-2 Tablets by 10 Tablet 0 0 07/202012/12/2020 5 MG immediate release mouth every 4 hours as tablet needed for Pain (severe pain). documented as of this encounter Procedure Notes Isaac Peña MD - 12/10/2020 2:41 PM CDT OPERATIVE REPORT DATE OF OPERATION: 12/10/2020 : 1975 SURGEON: Isaac Peña MD NONFARM ANIMAL CARETAKER: Manpreet [place] MD (Orthopaedic Sports Medicine Fellow) Dede Mccall PA-C There was no resident available to assist with this case. A skilled claims assistant was required for positioning, prepping and [...] Component Value Ref Test Analysis Performed At [facility] Method Time Signature Case Report Surgical Pathology ?Case: [id number] ? 12/11/2020 [facility] Authorizing Provider: ??Isaac Morrow MD ? Collected: ? 12/10/2020 1415 ? 10:06 AM LABO RATORY Ordering Location: ? [facility] ?Received: ?12/10/2020 1437 ? CDT Pathologist: ? Jules Maldonado MD ? Specimen: ?Knee, right, right knee synovium ? FINAL Synovium, right knee, biopsies: 12/12/19 21 [facility] Electronically DIAGNOSIS Fragments of synovium with c hronic inflammation and degenerating cartilage. 10:06 AM LABORATORY signed by YVONNE Maldonado MD on 12/11/2020 at 10:05 AM Clinical Knee pain, right 12/11/2020 [facility] Information 10:06 AM LABORATORY CDT Microscopic Microscopic 12/11/2020 [facility] Description examination is 10:06 AM LABORATORY performed. CDT Gross A: 12/11/2020 [facility] Description The specimen is received in formalin and labeled with the patient's name and Knee, right, right knee synovium . The specimen consists of 1.5 x 1.1 x 0.3 cm of mottled hurtado-red rubbery tissue fragments. 10:06 AM LABORATORY The specimen is filtered and entirely submitted 1 cassette. DV CDT Embedded 12/11/2020 [facility] Images 10:06 AM LABORATORY CDT Specimen Anatomical Collection Method Collection Time Receive d Time (Source) Location / / Volume Laterality Tissue ENTIRE KNEE REGION 12/10/2020 2:15 PM 07/2020 2:37 / Unknown CDT PM CDT Isaac Peña MD LAB PATHOLOGY Performing Organization Address City/State/ZIP Code Phon e Number [facility] [address] [place] [address] documented in this encounter Visit Diagnoses Diagnosis [...] PM CDT 50 mcg 25-50 mcg, Intravenous, [id number], Other, Moderate to Severe Pain (pain score [...] at 1230, Until Wed12/10/20 at 1818, Maximum cu mulative dose is 2 mg in PACU, call Anesthesiologist if additional dosage neede d. For patients with a regional, spinal, or local anesthetic, may give for an ticipated pain as the anesthetic wears off., PACU/Recovery lactated ringers infusion Intravenous, at 30 mL/hr, CONTINUOUS, Starting on Wed12/10/20 at 1600, Pre-op meperidine (DEMEROL) injection 12.5 mg 12.5 mg, Intravenous, [id number], Shiverin g, Starting on Wed12/10/20 at 1230, Until Wed12/10/20 at 1817, For 2 doses, Maximu m cumulative dose is 25 mg. Do not give to patients receiving MAO inhibitors (e.g. phenelzine (NA RDIL), tranylcypromine (PARNATE), selegiline (ELDEPRYL))., PACU/Recovery midazolam (VERSED) injection 0.5-1 mg 0.5-1 mg, Intravenous, [id number], Anxiety , Starting on Wed12/10/20 at 1230, Until Wed12/10/20 at 8, Maximum cumulative dose is 2 mg. TO [...] Until Wed12/10/20 at 1818, For 1 dose, F or imminent respiratory [...] ETED) 1333 (Started - Provider: Kristy Penn, EDUCATION CONSULTANT, SAFETY DIRECTOR) 2 g, Intravenous, Administer over 30 Min [...] Provider: Yasmine Yeung RN) 25-50 mcg, Intravenous, [id number], Other, Moderate to Severe Pain (pain score [...] (DEMEROL) injection 12.5 mg 12.5 mg, Intravenous, [id number], Shiverin g, Starting on Wed12/10/20 at 1230, Until Wed12/10/20 at 1817, For 2 doses, Maximum cumulative dose is 25 mg. Do not give to patients receiving MAO inhibitors (e. g. phenelzine (NARDIL), tranylcypromine (PARNATE), selegiline (ELDEPRYL))., PACU/Recovery midazolam (VERSED) injection 0.5-1 mg 0.5-1 mg, Intravenous, [id number], Anxiety , Starting on Wed12/10/20 at 1230, [...] Intra-op documented in this encounter Care Teams Pega Developer Relationship Specialty Start Date End Date Aydin Morales MD PCP - General 08/29/13 1001 [facility] 100 [place] [address] documented as of this encounter
--- OUTSIDE RECORDS SUMMARY | 2022-01-27 11:52 | XMS_ITS | Encounter Summary ---
:1975 Author Organization [facility] Address [address] [place] [address] Care Team Providers Name Role Phone Aydin Morales MD Primary Care Provider Reason for Visit Reason Comments Refill Encounter Details Date Type Department Care Team Description 01/04/2014 Refill [facility] Mateus Villa MD Refill [address] [facility] [address] [place] [address] [place] [address] 1 [place] [address] [phone] (Wo rk) Social History Tobacco Use Types Packs/Day Years Used Date Smoking Tobacco: Never Assessed Sex Assigned at Date Recorded Not on file documented as of this encounter Plan of Treatment Not on filedocumented as of this encounter Visit Diagnoses Not on filedocumented in this encounter Care Teams Cotton Wringer Relationship Specialty Start Date End Date Aydin Morales MD PCP - General 08/29/13 1001 [facility] 100 [place] [address] documented as of this encounter
--- OUTSIDE RECORDS SUMMARY | 2022-01-27 11:52 | XMS_ITS | Encounter Summary ---
:1975 Author Organization [employer] Address [address] [place] [address] Care Team Providers Name Role Phone Aydin Morales MD Primary Care Provider Reason for Visit Reason Comments Refill Encounter Details Date Type Department Care Team Description 12/28/2013 Refill [facility] Mateus Villa MD Refill [address] [facility] [address] [place] [address] [place] [address] 1 [place] [address] [phone] (Wo rk) Social History Tobacco Use Types Packs/Day Years Used Date Smoking Tobacco: Never Assessed Sex Assigned at Date Recorded Not on file documented as of this encounter Nursing Notes Bri Mari - 12/29/2013 4:04 PM CDT Rx left at front desk officer for pickers material handlers. Pt. notified. Bri Mari - 12/29/2013 2:20 PM CDT Pt. called again to inquire about Percocet refill as he has to travel from [place]. Eden Gunter RN - 12/28/2013 8:49 AM [...] on filedocumented in this encounter Care Teams Cranberry Bog Supervisor Relationship Specialty Start Date End Date Aydin Morales MD PCP - General 08/29/13 1001 [facility] 100 [place] [address] documented as of this encounter
--- OUTSIDE RECORDS SUMMARY | 2022-01-27 11:52 | XMS_ITS | Encounter Summary ---
:1975 Author Organization [employer] Address [address] [place] [address] Care Team Providers Name Role Phone Aydin Morales MD Primary Care Provider Reason for Referral Procedure/Equipment (Routine) - Incomplete Specialty Diagnoses / Procedures Referred By Contact Refer red To Contact Procedures Isaac Peña MD [facility] Arthroscopy Knee Rt [address] [place], [place] [address] Referral ID Status Reason Start Date Expiration Date Visits V isits Requested Authorized [id number] Incomplete 12/09/2020 03/10/2022 1 1 Encounter Details Date Type Department Care Team Description 12/09/2020 Notes/Orders [facility] Barbi Vega 8100 [place], [place] [address] Social History Tobacco Use Types [...] on filedocumented in this encounter Care Teams Train Operations Supervisor Relationship Specialty Start Date End Date Aydin Morales MD PCP - General 08/29/13 1001 [facility] 100 [place] [address] documented as of this encounter
--- OUTSIDE RECORDS SUMMARY | 2022-01-27 11:52 | XMS_ITS | Encounter Summary ---
:1975 Author Organization [employer] Address [address], [place] [address] Care Team Providers Name Role Phone Aydin Morales MD Primary Care Provider Encounter Details Date Type Department Care Team Description 12/10/2020 Surgery [facility] S [facility] Isaac Peña MD RIGHT knee 8100 [facility] [address] [facility] [address] arthroscopic partial [place], [place] [address] 1 [place], [place] medial meniscectomy, [address] loose body removal, (Wo rk) partial synovectomy, [...] 12/10/2020 : 1975 SURGEON: Isaac Peña MD BOAT MASTER: Manpreet [place] MD (Orthopaedic Sports Medicine Fellow) Dede Mccall PA-C There was no resident available to assist with this case. A skilled operations and intelligence assistant was required for positioning, prepping and [...] there is some chondral/early degenerative changes [facility] and this may continue to be a [...] Component Value Ref Test Analysis Performed At [facility] Method Time Signature Case Report Surgical Pathology ?Case: [id number] ? 12/11/2020 [facility] Authorizing Provider: ??Isaac Morrow MD ? Collected: ? 12/10/2020 1415 ? 10:06 AM LABO RATORY Ordering Location: ? [facility] ?Received: ?12/10/2020 1437 ? CDT Pathologist: ? Jules Maldonado MD ? Specimen: ?Knee, right, right knee synovium ? FINAL Synovium, right knee, biopsies: 12/12/19 21 [facility] Electronically DIAGNOSIS Fragments of synovium with c hronic inflammation and degenerating cartilage. 10:06 AM LABORATORY signed by YVONNE Maldonado MD on 12/11/2020 at 10:05 AM Clinical Knee pain, right 12/11/2020 [facility] Information 10:06 AM LABORATORY CDT Microscopic Microscopic 12/11/2020 [facility] Description examination is 10:06 AM LABORATORY performed. CDT Gross A: 12/11/2020 [facility] Description The specimen is received in formalin and labeled with the patient's name and Knee, right, right knee synovium . The specimen consists of 1.5 x 1.1 x 0.3 cm of mottled hurtado-red rubbery tissue fragments. 10:06 AM LABORATORY The specimen is filtered and entirely submitted 1 cassette. DV CDT Embedded 12/11/2020 [facility] Images 10:06 AM LABORATORY CDT Specimen Anatomical Collection Method Collection Time Receive d Time (Source) Location / / Volume Laterality Tissue ENTIRE KNEE REGION 12/10/2020 2:15 PM 07/2020 2:37 / Unknown CDT PM CDT Isaac Peña MD LAB PATHOLOGY Performing Organization Address City/State/ZIP Code Phon e Number [facility] [address] [place] [address] documented in this encounter Visit Diagnoses Diagnosis [...] PM CDT 50 mcg 25-50 mcg, Intravenous, [id number], Other, Moderate to Severe Pain (pain score [...] at 1230, Until Wed12/10/20 at 1817, Maximum cu mulative dose is 2 mg in PACU, call Anesthesiologist if additional dosage neede d. For patients with a regional, spinal, or local anesthetic, may give for an ticipated pain as the anesthetic wears off., PACU/Recovery lactated ringers infusion Intravenous, at 30 mL/hr, CONTINUOUS, Starting on Wed12/10/20 at 1600, Pre-op meperidine (DEMEROL) injection 12.5 mg 12.5 mg, Intravenous, [id number], Shiverin g, Starting on Wed12/10/20 at 1230, Until Wed12/10/20 at 1817, For 2 doses, Maximu m cumulative dose is 25 mg. Do not give to patients receiving MAO inhibitors (e.g. phenelzine (NA RDIL), tranylcypromine (PARNATE), selegiline (ELDEPRYL))., PACU/Recovery midazolam (VERSED) injection 0.5-1 mg 0.5-1 mg, Intravenous, [id number], Anxiety , Starting on Wed12/10/20 at 1230, [...] 1333 (Started - Provider: Kristy Penn APRN, BOILER ERECTOR) 2 g, Intravenous, Administer over 30 Min [...] Provider: Yasmine Yeung RN) 25-50 mcg, Intravenous, [id number], Other, Moderate to Severe Pain (pain score [...] (DEMEROL) injection 12.5 mg 12.5 mg, Intravenous, [id number], Shiverin g, Starting on Wed12/10/20 at 1230, Until Wed12/10/20 at 1818, For 2 doses, Maximum cumulative dose is 25 mg. Do not give to patients receiving MAO inhibitors (e. g. phenelzine (NARDIL), tranylcypromine (PARNATE), selegiline (ELDEPRYL))., PACU/Recovery midazolam (VERSED) injection 0.5-1 mg 0.5-1 mg, Intravenous, [id number], Anxiety , Starting on Wed12/10/20 at 1230, [...] T 12/10/20 at 1544, Until Wed12/10/20 at 181, 1-2 tablets eery 4 hours., PACU & Post-op prochlorperazine (COMPAZINE) injection 5 mg 5 mg, Intravenous, PRN, Nausea, Vomiting , Starting on Wed12/10/20 at 1230, Until Wed12/10/20 at 181, For 2 doses, 2nd dose may be [...] Intra-op documented in this encounter Care Teams Baseball Club Manager Relationship Specialty Start Date End Date Aydin Morales MD PCP - General 08/29/13 1001 [facility] 100 [place] [address] documented as of this encounter
--- OUTSIDE RECORDS SUMMARY | 2022-01-27 11:52 | XMS_ITS | Encounter Summary ---
:1975 Author Organization [employer] Address [address] [place] [address] Care Team Providers Name Role Phone Aydin Morales MD Primary Care Provider Reason for Visit Reason Comments SHOULDER PAIN Encounter Details Date Type Department Care Team Description 01/04/[address] [facility] Jean-ClaudeWes marcos is A SLAP lesion of [address] shoulder (Primary Dx) [address] [place] [phone] Social History Tobacco Use Types Packs/Day Years Used Date Smoking Tobacco: Never Assessed Sex Assigned at Date Recorded Not on file documented as of this encounter Progress Notes Wes Booneis A - 01/12/2014 1:09 PM CST [facility] Surgeon: Mateus Piña Date of surgery: [...] refill of PERCOCET per Dr. Ayana TREJO. GRATED LOGISTICS SUPPORT MANAGER documented in this encounter Plan of Treatment Not on filedocumented as of this encounter Visit Diagnoses Diagnosis SLAP lesion of shoulder - Primary Superior glenoid labrum lesion documented in this encounter Care Teams Rec Therapist Relationship Specialty Start Date End Date Aydin Morales MD PCP - General 08/29/13 1001 [facility] 100 [place] [address] documented as of this encounter
--- OUTSIDE RECORDS SUMMARY | 2022-01-27 11:52 | XMS_ITS | Encounter Summary ---
:1975 Author Organization [employer] Address [address] [place] [address] Care Team Providers Name Role Phone Aydin Morales MD Primary Care Provider Reason for Visit Reason Comments Refill Encounter Details Date Type Department Care Team Description 01/15/2014 Refill [facility] Mateus Villa MD Refill [address] [facility] [address] [place] [address] [place] [address]43 1 [place] [address] [phone] (Wo rk) Social History Tobacco Use Types Packs/Day Years Used Date Smoking Tobacco: Never Assessed Sex Assigned at Date Recorded Not on file documented as of this encounter Nursing Notes Isabel Sanchez RN - 01/18/2014 9:55 AM CST per polarity tester patient did chart picker scripts. K REPAIRER Eden Gunter RN - 01/16/2014 10:44 AM CST Received call from patient , checking to see if RXS are available for chart picker. Will call later. K REPAIRER Andrea Randolph RN - 01/15/2014 4:31 PM CST Patient is s/p Right Shoulder Arthroscopic SLAP Lesion Repair with Capsulorrhaphy Adjacent to SLAP Lesion and open subpectoral biceps tenodesis on 12/19. Calling to request refill on pain medicine, last received Percocet #[phone] on 01/04/14. He does feel ready to step down to the [place] as he is only taking 4 pills a day. Does request two scripts, one post-dated as he lives in [place]. K REPAIRER documented in this encounter Plan of Treatment Not on filedocumented as of this encounter Visit Diagnoses Not on filedocumented in this encounter Care Teams Oil Processing Technician Relationship Specialty Start Date End Date Aydin Morales MD PCP - General 08/29/13 1001 [facility] 100 [place] [address] documented as of this encounter
--- OUTSIDE RECORDS SUMMARY | 2022-01-27 11:52 | XMS_ITS | Encounter Summary ---
:1975 Author Organization [employer] Address [address] [place] [address] Care Team Providers Name Role Phone Aydin Morales MD Primary Care Provider Reason for Visit Reason Comments Refill Encounter Details Date Type Department Care Team Description 12/22/2013 Refill [facility] Mateus Villa MD Refill [address] [facility] [address] [place] [address] [place] [address] 1 [place] [address] [phone] (Wo rk) Social History Tobacco Use Types Packs/Day Years Used Date Smoking Tobacco: Never Assessed Sex Assigned at Date Recorded Not on file documented as of this encounter Nursing Notes Bri Mari - 12/22/2013 11:25 AM CDT Rx left at motel front desk attendant for spanish moss picker. Pt. notified. Bri Mari - 12/22/2013 [...] on filedocumented in this encounter Care Teams Blanker Press Operator Relationship Specialty Start Date End Date Aydin Morales MD PCP - General 08/29/13 1001 [facility] 100 [place] [address] documented as of this encounter
--- OUTSIDE RECORDS SUMMARY | 2022-01-27 11:52 | XMS_ITS | Encounter Summary ---
:1975 Author Organization [employer] Address [address] [place] [address] Care Team Providers Name Role Phone Aydin Morales MD Primary Care Provider Reason for Referral Procedure/Equipment (Routine) - Closed Specialty Diagnoses / Procedures Referred By Contact Refer red To Contact Diagnoses Chronic pain of right knee Isaac Peña MD Procedures MR Knee Rt WO IV Cont [address] [facility] [address] [place], [place] [address] Referral ID Status Reason Start Date Expiration Date Visits Requ ested Visits Authorized [id number] Closed 09/19/2020 12/19/2021 1 1 Procedure/Equipment (Routine) - Incomplete Specialty Diagnoses / Procedures Referred By Contact Refer red To Contact Diagnoses Chronic pain of right knee Isaac Peña MD Procedures XR Knee Lt 1-2 Views Comparison [address] [facility] [address] [place], [place] [address] Referral ID Status Reason Start Date Expiration Date Visits V isits Requested Authorized [id number] Incomplete 09/19/2020 12/19/2021 1 1 Procedure/Equipment (Routine) - Incomplete Specialty Diagnoses / Procedures Referred By Contact Refer red To Contact Diagnoses Chronic pain of right knee Isaac Peña MD Procedures XR Knee Rt [address] [place] [address] [place] [address] 1 Referral ID Status Reason Start Date Expiration Date Visits V isits Requested Authorized [id number] Incomplete 09/19/2020 12/19/2021 1 1 Reason for Visit Reason Comments Knee Problem right knee Encounter Details Date Type Department Care Team Description 09/19/2020 Office Visit [facility] Isaac Peña MD Chronic pain of right knee (Primary Dx); CENTER 8100 [facility] History of arthroscopy of right knee 8100 [facility] [place] [address] [phone] (Wo rk) Social History Tobacco Use Types [...] 09/19/2020 11:00 AM CDT Juan Ramon Granados [id number] 1975 [facility] Orthopaedic Surgery Consultation 09/19/2020 Chief Complaint: Right [...] Current Medications: Lexapro Reviewed and updated in [facility] Past Medical History/Past Surgical History: Anxiety Right knee arthroscopy (2016, [facility]) Arthroscopy, right shoulder (12/19/2013) Social History: Patient works at [employer] in [employer], employed for 25 years. Denies illicit drug use or tobacco products, and he drinks alcohol occasionally. Exercises weekly. Enjoys intramural softball. . Lives with and son. Always wears seatbelt. Review of Systems: A 15-point review of systems obtained and is significant for anxiety and as mentioned above. Family History: [place] [facility] Medical History Form dated 09/19/2020 was reviewed with the patient, updated, and signed;this is located in [facility] in [facility]. This will act as supplement [...] knee documented in this encounter Care Teams Clinical Informatics Spec Relationship Specialty Start Date End Date Aydin Morales MD PCP - General 08/29/13 1001 [facility] 100 [place] [address] documented as of this encounter
--- OUTSIDE RECORDS SUMMARY | 2022-01-27 11:52 | XMS_ITS | Encounter Summary ---
:1975 Author Organization [employer] Address [address] [place] [address] Care Team Providers Name Role Phone Aydin Morales MD Primary Care Provider Reason for Visit Procedure/Equipment (Routine) - Incomplete Specialty Diagnoses / Procedures Referred By Contact Refer red To Contact Diagnoses Acute pain of right knee Effusion of right knee Sourav Ramirez MD Procedures XR Knee Lt 1-2 Views Comparison 8100 [facility] [place], [place] [address] Referral ID Status Reason Start Date Expiration Date Visits V isits Requested Authorized [id number] Incomplete 08/13/2021 11/12/2022 1 1 Encounter Details Date Type Department Care Team Description 08/13/2021 Ancillary [facility] Sourav Ramirez Acute pain of right knee; Procedure 8100 Zhane Gaming MD Effusion of right knee Drive [address] [facility] [place] [address] [phone] Social History Tobacco Use Types Packs/Day Years [...] joint documented in this encounter Care Teams Food Beverage Attendant Relationship Specialty Start Date End Date Aydin Morales MD PCP - General 08/29/13 1001 [facility] 100 [place] [address] documented as of this encounter
--- OUTSIDE RECORDS SUMMARY | 2022-01-27 11:52 | XMS_ITS | Encounter Summary ---
:1975 Author Organization [email or web address] Address [address] [place] [address] Care Team Providers Name Role Phone Aydin Morales MD Primary Care Provider Reason for Visit Procedure/Equipment (Routine) - Incomplete Specialty Diagnoses / Procedures Referred By Contact Refer red To Contact Procedures Isaac Peña MD [facility] Arthroscopy Knee Rt [address] [place] [address] 1 Referral ID Status Reason Start Date Expiration Date Visits V isits Requested Authorized [id number] Incomplete 12/09/2020 03/10/2022 1 1 Encounter Details Date Type Department Care Team Description 12/10/2020 Ancillary Procedure [facility] Isaac Peña MD [facility] [address] [place] [address] 8100 [place], [place] [address] [phone] (Wo rk) Social History Tobacco Use Types [...] filedocumented in this encounter Care Teams Gas Prover Relationship Specialty Start Date End Date Aydin Morales MD PCP - General 08/29/13 1001 [facility] 100 [place] [address] documented as of this encounter
--- OUTSIDE RECORDS SUMMARY | 2022-01-27 11:52 | XMS_ITS | Encounter Summary ---
:1975 Author Organization [employer] Address [address], [place] [address] Care Team Providers Name Role Phone Aydin Morales MD Primary Care Provider Reason for Visit Reason Comments Post-Op Follow Up right knee scope Encounter Details Date Type Department Care Team Description 12/19/2020 Office Visit [facility] Dede Wray, S/P [facility] knee [facility] arthroscopy (Primary [address] Dx) [place], [place] [address] [place], [place] [phone] (Wo rk) Social History Tobacco Use Types [...] scheduled to start next week at [facility] in [place]. He returned to his job, which he [...] status documented in this encounter Care Teams Cattle Rancher Relationship Specialty Start Date End Date Aydin Morales MD PCP - General 08/29/13 1001 [facility] 100 [place] [address] documented as of this encounter
--- OUTSIDE RECORDS SUMMARY | 2022-01-27 11:52 | XMS_ITS | Encounter Summary ---
:1975 Author Organization [facility] Address [address] [address] Care Team Providers Name Role Phone Aydin Morales MD Primary Care Provider Encounter Details Date Type Department Care Team Description 12/19/2013 Office Visit [facility] Surgery, elective [address] [place], [place] [address] Social History Tobacco Use Types [...] states documented in this encounter Care Teams Home Planning Consultant Salesperson Relationship Specialty Start Date End Date Aydin Morales MD PCP - General 08/29/13 1001 [facility] 100 [place] [address] documented as of this encounter
--- OUTSIDE RECORDS SUMMARY | 2022-01-27 11:53 | XMS_ITS | Encounter Summary ---
:1975 Author Organization [facility] Address [address] [place] [address] Care Team Providers Name Role Phone Unavailable Primary Care Provider Unavailable Encounter Details Date Type Department Care Team Description 12/18/2013 Hospital Encounter [facility] FBHB FAMILYPRA Lidia Elizondo APRN, C.N.P. [address] [place] [address] (Wo rk) Social History Tobacco [...] documented in this encounter H&P Notes Gail Elizondo APRN, C.N.P. - 12/18/2013 9:46 AM CDT [id number] CHIEF COMPLAINT/REASON FOR VISIT 1. Establish care. 2. Preop for right rotator cuff repair. HISTORY OF PRESENT ILLNESS This is Anastasiya's first visit to [facility] in [place]. He recently moved from [place], [place]. He states he injured his right shoulder playing softball this summer. He is being seen at the request of Dr. Barry for medical evaluation prior to surgery. He is scheduled for right shou lder rotator cuff repair with Dr. Barry at [facility] on 12/19/2013. Has no history of [...] paperwork will be completed and faxed to [facility]. . Allof his questions were answered. He is class ASA class 1. Gail Elizondo CNP/gala Electronically Signed By: GAIL ELIZONDO CNP On: 12/18/2013 11:27 AM Modified by and Electronically Signed by: GAIL ELIZONDO CNP On: 12/18/2013 11:27 AM Source: [facility] MHSDOLBEYNONRADSYS Document Id: [id number] documented in this encounter Nursing Notes Gail [...] can help keep it that way. ?? [id number] [facility], [address] [place] [address], [place] [address]. All rights reserved. This information is not intended as a substitute for professional medical care. Always follow your healthcare professional's instructions. This document has images extracted. Please consider using [employer] for all your patient education needs. Source: [facility] POWERCHART Document Id: [id number] documented in this encounter Miscellaneous Notes Miscellaneous - Gail Elizondo APRN, C.N.P. - 12/18/2013 10:10 AM CDT Ambulatory Patient Summary [address] [id number] Visit Information Name: ANASTASIYA GRANADOS [facility] Number: [id number] Current Date: 12/18/2013 10:10:05 Physicians [...] can help keep it that way. ?? [id number] [facility], [address] [place] [address], [place] [address]. All rights reserved. This information is not intended as a substitute for professional medical care. Always follow your healthcare professional's instructions. Your Goals/Additional instructions: This document has images extracted. Please consider using [employer] for all your patient education needs. Source: [facility] POWERCHART Document Id: [id number] Miscellaneous - Gail Elizondo APRN, C.N.P. - 12/18/2013 10:10 AM CDT Ambulatory Discharge Medication List [address] [id number] Visit Information Name: RAKESH ANASTASIYA MONROE [facility] Number: [id number] Visit Date: 12/18/2013 10:10:04 Attending [...] of emergency. Electronically Signed By: GAIL ELIZONDO LINOLEUM MECHANIC Signed On:18-DEC-2013 10:09:37 Additional Information: Source: [facility] POWERCH[facility] Document Id: [id number] Miscellaneous - Evelyn Saxena C.M.A. - 12/18/2013 10:04 AM CDT Health Assessment [...] CDT Psychosocial Domestic Abuse Concerns : None Rastafarian Preference : No qualifying data available. EVELYN SAXENA - 12/18/2013 10:04 CDT Advance Directive Advanced Directives : Yes Advance Directive Type : Health care power of grain sacker EVELYN SAXENA - 12/18/2013 10:04 CDT Educ Needs Learning Style Preference Adult Grid Patient : Printed materials Family : Printed materials EVELYN SAXENA - 12/18/2013 10:04 CDT Source: [facility] POWERCH[facility] Document Id: [id number] CDT!25 Miscellaneous - Evelyn Saxena C.M.A. - 12/18/2013 9:53 AM CDT Adult Rivet Heater Intake/History Adult Rivet Heater Intake/History Entered On: 12/18/2013 10:00 CDT Performed On: 12/18/2013 9:53 CDT by EVELYN SAXENA Intake Chief Complaint : pre op physical; right shoulder surgery; 12/19/2013; [facility] [place];Dr. Barry. Temperature Core : 37.2 DegC(Converted to: [...] 2.28 Body Mass Index : 32.04 kg/m2 EVELYN SAXENA - 12/18/2013 9:53 CDT General Info Information Given By : Patient Languages : Polish Is Patient Female and 13-50 no hysterectomy [...] EVELYN SAXENA - 12/18/2013 9:53 CDT Source: [employer] POWERCHART Document Id: [id number] CDT!36 Miscellaneous - Evelyn Saxena C.M.A. - [...] EVELYN SAXENA - 12/18/2013 9:53 CDT Source: [facility] POWERCHART Document Id: [id number] CDT!10 documented in this encounter Plan of [...] X109L Erythrocytes 4.60 4.32 - POWERCHART 5.72 S0160T Hemoglobin 15.6 13.5 - POWERCHART 17.5 GDL [...] C.N.P. LAB BLOOD ADD-ON Performing Organization Address City/[facility] Phon e Number POWERCHART (ABNORMAL) BMP (Basic [...] Blood 12/18/2013 10:52 AM CDT Gail Elizondo APRN C.N.P. LAB BLOOD ADD-ON Performing Organization Address City/State/ZIP Code Phon e Number POWERCHART documented in this encounter Visit Diagnoses Not on filedocumented in this encounter
--- OUTSIDE RECORDS SUMMARY | 2022-01-27 11:53 | XMS_ITS | Encounter Summary ---
:1975 Author Organization [employer] Address [address] [place] [address] Care Team Providers Name Role Phone Aydin Morales MD Primary Care Provider Encounter Details Date Type Department Care Team Description 09/01/2013 Imaging [facility] Pain in joint, shoulder [address] [place], [place] [address] Social History Tobacco Use Types [...] without change after injection. Erich Kirkland MD [facility] documented in this encounter Visit Diagnoses Diagnosis Pain in joint, shoulder region documented in this encounter Care Teams Armature Winder Repair Helper Relationship Specialty Start Date End Date Aydin Morales MD PCP - General 08/29/13 1001 [facility] 100 [place] [address] documented as of this encounter
--- OUTSIDE RECORDS SUMMARY | 2022-01-27 11:53 | XMS_ITS | Encounter Summary ---
:1975 Author Organization [facility] Address [address] [place] [address] Care Team Providers Name Role Phone Aydin Morales MD Primary Care Provider Reason for Visit Reason Comments Refill Encounter Details Date Type Department Care Team Description 11/16/2013 Refill [facility] Erich Kirkland MD Refill [address] [facility] [address] [facility] [place], [place] [address] [place] [address] [phone] (Wo rk) Social History Tobacco Use Types [...] refill of hispain meds. He lives in [place] and prefers not to come in to picker packer a prescription, he would likea prescription for [place]. Last prescription for [place] was on 11/07. Will pend to Dr. Kirkland for approval. documented in this encounter Plan of Treatment Not on filedocumented as of this encounter Visit Diagnoses Not on filedocumented in this encounter Care Teams Mutual Fund Accountant Relationship Specialty Start Date End Date Aydin Morales MD PCP - General 08/29/13 1001 [facility] 100 [place] [address] documented as of this encounter
--- OUTSIDE RECORDS SUMMARY | 2022-01-27 11:53 | XMS_ITS | Encounter Summary ---
:1975 Author Organization [facility] Address [address], [place] [address] Care Team Providers Name Role Phone Aydin Morales MD Primary Care Provider Encounter Details Date Type Department Care Team Description 12/07/2013 Orders Only [facility] MYLA Mateus Villa MD [address] [facility] [address] [place] [address] [place], [place] [address] 1 [place] [address] [phone] (Wo rk) Social History Tobacco Use Types Packs/Day Years Used Date Smoking Tobacco: Never Assessed Sex Assigned at Date Recorded Not on file documented as of this encounter Plan of Treatment Not on filedocumented as of this encounter Visit Diagnoses Not on filedocumented in this encounter Care Teams Pattern Puncher Relationship Specialty Start Date End Date Aydin Morales MD PCP - General 08/29/13 1001 [facility] 100 [place] [address] documented as of this encounter
--- OUTSIDE RECORDS SUMMARY | 2022-01-27 11:53 | XMS_ITS | Encounter Summary ---
:1975 Author Organization [facility] Address [address] [place] [address] Care Team Providers Name Role Phone Aydin Morales MD Primary Care Provider Reason for Visit Reason Comments Refill Encounter Details Date Type Department Care Team Description 10/23/2013 Refill [facility] MYLA Erich Garrison MD Refill [address] [address] [facility] [address] [facility] [place], [place] [address] 1 [place] [address] [phone] (Wo rk) Social History Tobacco Use Types Packs/Day Years Used Date Smoking Tobacco: Never Assessed Sex Assigned at Date Recorded Not on file documented as of this encounter Nursing Notes Laurie Mercer - 10/24/2013 2:[address] Kirkland approves script for [place]. Patient's preferred pharmacy, [facility] in [place], [place]. Script called into pharmacy. Patient contacted and notified. Issue resolved. documented in this encounter Plan of Treatment Not on filedocumented as of this encounter Visit Diagnoses Not on filedocumented in this encounter Care Teams Beverage Manager Relationship Specialty Start Date End Date Aydin Morales MD PCP - General 08/29/13 1001 [facility] 100 [place] [address] documented as of this encounter
--- OUTSIDE RECORDS SUMMARY | 2022-01-27 11:53 | XMS_ITS | Encounter Summary ---
:1975 Author Organization [facility] Address [address] [place] [address] Care Team Providers Name Role Phone Aydin Morales MD Primary Care Provider Reason for Visit Reason Comments SHOULDER PAIN Encounter Details Date Type Department Care Team Description 12/06/2013 Surgical Consult [facility] Mateus Piña, RADHA AP lesion of MENTOR shoulder (Primary [address] [facility] [address] [facility] [address] Dx) [place] [address] Social History Tobacco Use Types Packs/Day Years Used Date Smoking Tobacco: Never Assessed Sex Assigned at Date Recorded Not on file documented as of this encounter Patient Instructions Patient InstructionsCamMitch cerda - 12/06/2013 10:[address] Mateus Piña MD Orthopaedic Surgeon: Shoulder & Elbow Blow Molding Machine Operator: Shima Perez Please contact Shima for all administrative questions at [phone] Viscose Cellar Worker: Mitch Boone Please contact Mitch for all medical questions at [phone] Medication Requests: Prescriptions are not filled on Weekends or on Weekdays after 3:00PM For all medication refills: Request a refill using MyChart or contact your Pharmacy scheduled for surgery documented in this encounter Progress Notes Mateus Piña MD - 12/06/2013 10:23 AM CDT Progress Notes signed by Mateus Piña MD at 12/11/13 3166 Author: Mateus Piña MD Service: (none) Author Type: Physician Filed: 12/11/13 6147 Note Time: 12/08/13 1450 Status: Signed Pest Control Worker Helper: Mateus Piña MD (Physician) NAME: ANASTASIYA GRANADOS MR#: [id number] CSN: [id number] AUTHENTICATING CLINICIAN: Mateus Piña MD CONFIRM #: [id number] LOC: 711 CLINIC PROGRESS NOTE DATE OF [...] and he had an MRI in the [place] area without contrast which revealed a SLAP tear and no other pathology. The report is available but not the images. 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 Hobbies include golf, softball, running. He has not tried any therapy on a formal basis. ALLERGIES: PENICILLIN. MEDICATIONS: Celexa and [place]. PREVIOUS SURGERIES: None. CURRENT MEDICAL CONDITIONS: None. Nonsmoker. Occasional alcohol drinker. 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 Always wears a seat belt. REVIEW OF [...] He has a positive Crank's test. Positive Clermont's test. Positive Speed's test and Yergason's test [...] He will get physical therapy in the [place] area, he was given a script and protocol today. Shima Perez, my central scheduler, contacted him for surgical scheduling. He will seek his primary care doctor for preoperative evaluation. No further instructions. Total time with the patient today is 30 minutes, total consultation time is 20 minutes. MRW:GAGAN C: R:12/06/13 10:24 CONFIRM#:[id number] documented in this encounter Plan of Treatment Not on filedocumented as of this encounter Visit Diagnoses Diagnosis SLAP lesion of shoulder - Primary Superior glenoid labrum lesion documented in this encounter Care Teams Manager Of Allied Health Services Relationship Specialty Start Date End Date Aydin Morales MD PCP - General 08/29/13 1001 [facility] 100 [place] [address] documented as of this encounter
--- OUTSIDE RECORDS SUMMARY | 2022-01-27 11:53 | XMS_ITS | Encounter Summary ---
:1975 Author Organization [facility] Address [address] [place] [address] Care Team Providers Name Role Phone Unavailable Primary Care Provider Unavailable Encounter Details Date Type Department Care Team Description 02/12/2014 Hospital Encounter HX [facility] FBHB FAMILYPRA Venkata Cavanaugh P.A.-C. [address] [place] [address] (Wo rk) Social History Tobacco Use Types Packs/Day Years Used Date Smoking Tobacco: Never Assessed Sex Assigned at Date Recorded Male 10/02/2021 1:59 PM CDT documented as of this encounter Last Filed Vital Signs Vital Sign Reading Time Taken Comments Blood Pressure 130/84 02/12/2014 11:24 AM BIAS CUTTER Pulse 88 02/12/2014 11:24 AM BIAS CUTTER Temperature - - Respiratory Rate 16 02/12/2014 11:24 AM BIAS CUTTER Oxygen Saturation - - Inhaled Oxygen Concentration - - Weight - - Height 180 cm (5' 10.87) 02/12/2014 11:24 AM BIAS CUTTER Body Mass Index - - documented in this encounter Progress Notes Cyndie Cavanaugh P.A.-C. - 02/12/2014 11:03 AM CST [id number] CHIEF COMPLAINT/REASON FOR VISIT To establish care. [...] him that we will not prescribe this residential for him. He is in agreement with [...] CAVANAUGH PA-C On: 02/14/2014 09:21 AM Source: [facility] MHSDOLBEYNONRADSYS Document Id: [id number] CUTTER documented in this encounter Miscellaneous Notes Miscellaneous - Kusum Daigle - 08/21/2016 12:45 PM CDT Health Maintenance Reminder August 21, 2016 ANASTASIYA GRANADOS [id number] [facility] [id number] Dear ANASTASIYA GRANADOS, We have developed a [...] visit with us more convenient. Please call [phone] to schedule services that are past due or that may shortly become due (thank you if you have already done so). We will follow up in three to six months should you have more services to schedule at that time. If you have already received any of the listed past due or upcoming services outside of [facility], please call [phone] to add them to your medical record. You may want to consider contacting your health insurance company to make sure these services are covered and find out if there will be any qwt-an-tmephr expense. If you have any questions about the services listed above, or if you are no longer receiving care from [facility], please contact us at [phone]. Thank you for partnering to provide you with the best care possible. We encourage you to set up your Patient Online Services account [email or web address], where you can communicate in a convenient way with us, schedule appointments, receive lab results and more. To set up your account, you will need your [facility] Number, which is [id number]. Thank you for choosing us, Cyndie Cavanaugh P.A.-C. and the [place] [facility], for your health care needs! Sincerely, KUSUM DAIGLE Electronic Signature Electronically Signed By: KUSUM DAIGLE LPN On: August 21, 2016 This document has images extracted. Source: [facility] POWERCHART Document Id: [id number] Miscellaneous - Cyndie Cavanaugh P.A.-C. - 02/12/2014 12:40 PM CST Ambulatory Patient Summary [address] [id number] Visit Information Name: ANASTASIYA GRANADOS [facility] Number: [id number] Current Date: 02/12/2014 12:40:45 Physicians Attending Provider: CYNDIE CAVANAUGH PA-C Primary Care Provider: PCP, UNASSIGNED - FB GRANADOS ANASTASIYA FER has been given the following list [...] Oral, once a day New Routed to [place] [address] [facility] ABBY WATERMAN [id number] HYDROcodone-acetaminophen ([place] 5 mg-325 mg oral tablet) 1 Tablet(s), [...] appointment detail needed. Your Goals/Additional instructions: Source: [facility] POWERCHART Document Id: [id number] CUTTER Miscellaneous - Cyndie Cavanaugh P.A.-C. - 02/12/2014 12:40 PM CST Ambulatory Discharge Medication List [address] [place] [id number] Visit Information Name: ANASTASIYA GRANADOS [facility] Number: [id number] Visit Date: 02/12/2014 12:40:44 [...] Oral, once a day New Routed to [place] [address] [place] [id number] HYDROcodone-acetaminophen ([place] 5 mg-325 mg oral tablet) 1 Tablet(s), [...] PA-C Signed On:12-FEB-2014 12:40:40 Additional Information: Source: [facility] POWERCHART Document Id: [id number] CUTTER Miscellaneous - Elizabeth Martin L.P.N. - 02/12/2014 11:24 AM CST Adult Welding Machine Operator Helper Gas Intake/History Adult Welding Machine Operator Helper Gas Intake/History Entered On: 02/12/2014 11:27 BIAS CUTTER Performed On: 02/12/2014 11:24 BIAS CUTTER by ELIZABETH MARTIN Intake Chief Complaint : [...] 71 inch(es)) ELIZABETH MARTIN - 02/12/2014 11:24 BIAS CUTTER General Info Information Given By : Patient Languages : Kosovan Is Patient Female and 13-50 no hysterectomy : No ELIZABETH MARTIN - 02/12/2014 11:24 BIAS CUTTER Subjective Pain Symptoms : Yes ELIZABETH MARTIN - 02/12/2014 11:24 BIAS CUTTER Pain Pain Assessment Grid Pain 1 Location : Shoulder (Comment: R shoulder pain [ELIZABETH MARTIN - 02/12/2014 11:24 BIAS CUTTER] ) ELIZABETH MARTIN 02/12/2014 11:24 BIAS CUTTER Dependent Habits Tobacco Use/Currently Using : Yes Exposure to Tobacco Smoke : Patient smokes Smoking Status : Current every day smoker ELIZABETH MARTIN - 02/12/2014 11:24 BIAS CUTTER Tobacco Use Grid Cigarette Use Packs/Day : 2 ELIZABETH MARTIN - 02/12/2014 11:24 BIAS CUTTER ID Screen Travel Within Last 21 Days : No ELIZABETH MARTIN 02/12/2014 11:24 BIAS CUTTER Source: [facility] POWERCHART Document Id: [id number] BIAS CUTTER!31 CUTTER documented in this encounter Plan of Treatment Not on filedocumented as of this encounter Visit Diagnoses Not on filedocumented in this encounter
--- OUTSIDE RECORDS SUMMARY | 2022-01-27 11:53 | XMS_ITS | Clinical Summary ---
:[address] [facility] Address [address] [place] [address] Care Team Providers Name Role Phone Elsewhere, Pcp Primary Care Provider Unavailable Source Comments Patient records contain information from all sites at [facility]. For routine questions regarding patient records, call [phone] during business hours, M-F 8:00 AM - 5:00 PM Central Time. Record requests for emergency care only can be directed to [phone] at any time.[facility] Allergies No known active allergies Medications Medication [...] Comments Blood Pressure 130/84 02/12/2014 11:24 AM LEGAL EXECUTIVE Pulse 88 02/12/2014 11:24 AM LEGAL EXECUTIVE Temperature - - Respiratory Rate 16 02/12/2014 11:24 AM LEGAL EXECUTIVE Oxygen Saturation - - Inhaled Oxygen Concentration - - Weight 104 kg (228 lb 13.4 oz) 12/18/2013 9:53 AM CDT Height 180 cm (5' 10.87) 02/12/2014 11:24 AM LEGAL EXECUTIVE Body Mass Index 32.04 12/18/2013 9:53 AM [...] Phone Address Typ e / Group Dates [facility] CHOICE [id number] 2020-Nicole [phone] [id number] [place] [address] Care Teams Cook Dinner Relationship Specialty Start Date End Date Elsewhere, Pcp PCP - General Family Medicine 08/10/17
--- OUTSIDE RECORDS SUMMARY | 2022-01-27 11:53 | XMS_ITS | Encounter Summary ---
:1975 Author Organization [facility] Address [address] [place] [address] Care Team Providers Name Role Phone Aydin Morales MD Primary Care Provider Reason for Visit Reason Comments SHOULDER PAIN Encounter Details Date Type Department Care Team Description 10/04/2013 Office Visit [facility] Erich Kirkland MD Pain in joint, CENTER [address] [place] [address] shoulder region [address] [place] [phone] (Wo rk) Social History Tobacco Use Types Packs/Day Years Used Date Smoking Tobacco: Never Assessed Sex Assigned at Date Recorded Not on file documented as of this encounter Patient Instructions Patient InstructionsKMagdy nguyen OA - 10/04/2013 12:[address] Erich Kirkland MD Orthopaedic Surgeon Picture Painter: Patricia Matson Please contact Patricia for all administrative questions at [phone] Please contact Nurse Nicole for all medical related questions at [phone] Medication Requests: Prescriptions are not filled on Weekends or on Weekdays after 3:00PM For all medication refills: Request a refill using MyChart or contact your Pharmacy F/U as discussed documented in this encounter Progress Notes Erich Kirkland MD - 10/05/2013 3:13 PM CDT Progress Notes signed by Erich Kirkland MD at 10/10/13 1308 Author: Erich Kirkland MD Service: (none) Author Type: Physician Filed: 10/10/13 1308 Note Time: 10/10/13809 Status: Signed Cyber Legal Advisor: Erich Kirkland MD (Physician) NAME: JUAN RAMON GRANADOS MR#: [id number] CSN: [id number] AUTHENTICATING CLINICIAN: Erich Kirkland MD CONFIRM #: [...] region documented in this encounter Care Teams White Sugar Boiler Relationship Specialty Start Date End Date Aydni Morales MD PCP - General 08/29/13 1001 [facility] 100 [place] [address] documented as of this encounter
--- OUTSIDE RECORDS SUMMARY | 2022-01-27 11:53 | XMS_ITS | Encounter Summary ---
:1975 Author Organization [employer] Address [address] [place] [address] Care Team Providers Name Role Phone Aydin Morales MD Primary Care Provider Reason for Visit Reason Comments SHOULDER PAIN Encounter Details Date Type Department Care Team Description 08/30/2013 Surgical Consult [facility] Erich Kirkland Pai n in joint, CENTER shoulder region [address] [place] [address] (Primary Dx) [place] [address] [phone] Social History Tobacco Use Types Packs/Day Years [...] CDT Dr. Erich Kirkland MD Orthopaedic Surgeon Donkey Ride Operator: Patricia Matson Please contact Patricia for all administrative questions at [phone] Please contact Nurse Line for all medical related questions at [phone] Medication Requests: Prescriptions are not filled on [...] MD Service: (none) Author Type: Physician Filed: 09/12/13 Note Time: 09/12/13739 Status: Signed [employer] Consultant: Erich Kirkland MD (Physician) NAME: ANASTASIYA GRANADOS MR#: [id number] CSN: [id number] AUTHENTICATING CLINICIAN: Erich Kirkland MD CONFIRM #: [...] magnetic resonance imaging, which was accomplished at [facility] through [facility] in [place]. His scan was from 08/23/2013. The MR [...] painful. He has the most significant painwith Salem's type testing. Any type of labral provocation [...] Primary documented in this encounter Care Teams Specifications Writer Relationship Specialty Start Date End Date Aydin Morales MD PCP - General 08/29/13 100[address] [facility] 100 [place] [address] documented as of this encounter
--- OUTSIDE RECORDS SUMMARY | 2022-01-27 11:53 | XMS_ITS | Encounter Summary ---
:1975 Author Organization [employer] Address [address] [place] [address] Care Team Providers Name Role Phone Aydin Morales MD Primary Care Provider Reason for Visit Reason Comments Refill Encounter Details Date Type Department Care Team Description 12/01/2013 Refill [facility] MYLA Erich Garrison MD Refill [address] [facility] [address] [place] [address] [place] [address] [place] [address] [phone] (Wo rk) Social History Tobacco Use Types Packs/Day Years Used Date Smoking Tobacco: Never Assessed Sex Assigned at Date Recorded Not on file documented as of this encounter Nursing Notes Isabel Sanchez RN - 12/01/2013 1:44 PM CDT called to the pharmacy and left message on voicemail for the refill of [place]. Bri Mari - 12/01/2013 10:30 AM CDT [...] by pharmacy fax for the following medication: [place], #40 last dispensed on 11/17. documented in this encounter Plan of Treatment Not on filedocumented as of this encounter Visit Diagnoses Not on filedocumented in this encounter Care Teams Land Law Examiner Relationship Specialty Start Date End Date Aydin Morales MD PCP - General 08/29/13 1001 [facility] 100 [place] [address] documented as of this encounter
--- OUTSIDE RECORDS SUMMARY | 2022-01-27 11:53 | XMS_ITS | Encounter Summary ---
:1975 Author Organization [employer] Address [address] [place] [address] Care Team Providers Name Role Phone Aydin Morales MD Primary Care Provider Reason for Visit Reason Comments Refill Encounter Details Date Type Department Care Team Description 09/29/2013 Refill [facility] Erich Garrison MD Refill [address] [facility] [address] [facility] [place], [place] [address] [place] [address] [phone] (Wo rk) Social History Tobacco Use Types [...] by pharmacy fax for the following medication: [place], #40 last dispensed on 08/30. documented in this encounter Plan of Treatment Not on filedocumented as of this encounter Visit Diagnoses Diagnosis Pain in joint, shoulder region documented in this encounter Care Teams Train Caller Relationship Specialty Start Date End Date Aydin Morales MD PCP - General 08/29/13 1001 [facility] 100 [place] [address] documented as of this encounter
--- OUTSIDE RECORDS SUMMARY | 2022-01-27 11:53 | XMS_ITS | Encounter Summary ---
:1975 Author Organization [facility] Address [address] [place] [address] Care Team Providers Name Role Phone Aydin Morales MD Primary Care Provider Reason for Visit Reason Comments SHOULDER PAIN Encounter Details Date Type Department Care Team Description 11/07/2013 Surgical Consult [facility] Erich Kirkland Pai n in joint, CENTER shoulder region [address] [facility] [address] [place] [address] (Primary Dx) [place] [id number] Social History Tobacco Use Types Packs/Day Years Used Date Smoking Tobacco: Never Assessed Sex Assigned at Date Recorded Not on file documented as of this encounter Progress Notes Erich Kirkland MD - 11/07/2013 12:27 PM CDT Progress Notes signed by Erich Kirkland MD at 02/13/14 0621 Author: Erich Kirkland MD Service: (none) Author Type: Physician Filed: 02/13/14 9831 Note Time: 11/13/13 1057 Status: Signed Com Writer: Erich Kirkland MD (Physician) NAME: ANASTASIYA GRANADOS MR#: [id number] CSN: [id number] AUTHENTICATING CLINICIAN: Erich Kirkland MD CONFIRM #: [...] his pain medication. He has been taking [place] without much relief. He has had some [...] clinic visit. AWM:RONNIE C: R:11/07/13 13:00 CONFIRM#:[id number] OR OPERATIONS ANALYST documented in this encounter Plan of Treatment Not on filedocumented as of this encounter Visit Diagnoses Diagnosis Pain in joint, shoulder region - Primary documented in this encounter Care Teams Detention Worker Relationship Specialty Start Date End Date Aydin Morales MD PCP - General 08/29/13 1001 [facility] 100 [facility] [place] [address] documented as of this encounter
--- OUTSIDE RECORDS SUMMARY | 2022-01-27 11:53 | XMS_ITS | Encounter Summary ---
:1975 Author Organization [facility] Address [address] [place] [address] Care Team Providers Name Role Phone Elsewhere, Pcp Primary Care Provider Unavailable Reason for Visit Reason Comments Vomiting Encounter Details Date Type Department Care Team Description 07/22/2021 - Emergency [facility] Alcohol Abuse With Withdrawa l Uncomplicated (HCC) (Primary Dx); 07/23/[address] Elevated Liver Function Test ABBY VALLECILLO [address]-2 [facility] [phone] Social History Tobacco Use Types Packs/Day Years Used Date Smoking Tobacco: Every Day Sex Assigned at Date Recorded Male 10/02/2021 1:59 PM CDT documented as of this encounter Plan of Treatment Not on filedocumented as of this encounter Visit Diagnoses Diagnosis Alcohol Abuse With Withdrawal Uncomplica yasmany (HCC) - Primary Elevated Liver Function Test documented in this encounter Care Teams Appliance Installer Relationship Specialty Start Date End Date Elsewhere, Pcp PCP - General Family Medicine 08/10/17 documented as of this encounter
[2022-01-27] MEDS: GI COCKTAIL (VISC LIDO/ANTACID) 30 ML PO (12:25)
[2022-01-27 12:27] VITALS: BP 165/108; PULSE 70; RESP 18; O2SAT 95
[2022-01-27] MEDS: POTASSIUM CHLORIDE 10 MEQ CAPSULE ER 20 MEQ PO (12:54)
--- NOTE | 2022-01-27 15:46 | ED_ITS ---
HPI - Abdominal Pain General Date Seen: 01/27/22 Chief Complaint: Abdominal Pain Stated Complaint: Pancreatitis flareup Time Seen by Provider: 01/27/22 10:43 Source: patient Mode of arrival: ambulatory Limitations: no limitations History of Present Illness HPI narrative: Patient is a very nice gentleman who presents here for evaluation of possible pancreatitis, he has been drinking a lot of alcohol, and this is a common thing for him, he describes abdominal pain, mild nausea but no vomiting no blood by stools, no darkening of his stools, he says he knows he should be drinking alcohol, but does it to deal with stress. Previously seen for pancreatitis, but I also note that there is times when he does not have pancreatitis that there a diagnosis of alcoholic gastritis. 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 But only comes from this emergency room, he is also on clonazepam. MD elicited complaint: abdominal pain Pertinent past history: gastritis Pain Consistency: constant Location: epigastric Severity: moderate Quality: stabbing Radiation: epigastric Migration to: no migration Exacerbating factors: nothing Associated symptoms: denies other symptoms Related Data Home Medications Medication Instructions Recorded Confirmed fluoxetine 40 mg capsule mg 10/15/21 [id number] cap PO 10/15/21 24,000-76,000-120,000 unit capsule,delayed rel (Creon) omeprazole 20 mg capsule,delayed mg 10/15/21 release Previous Rx's Medication Instructions Recorded hydrocodone 5 mg-acetaminophen 325 1 tab PO Q8H abdominal pain #14 10/15/21 mg tablet tabs hydrocodone 5 mg-acetaminophen 325 1 tab PO TID PRN pain #5 tabs 11/25/21 mg tablet fluoxetine 40 mg capsule (Prozac) 40 mg PO DAILY #30 caps 01/27/22 potassium chloride 20 mEq 20 meq PO DAILY #30 tabs 01/27/22 tablet,extended release Allergies Allergy/AdvReac Type Severity Reaction Status Date / Time Penicillins Allergy Unknown Verified 11/24/21 21:32 Review of Systems Status of ROS Reports: 10 or more systems reviewed and unremarkable except as noted in History and below [facility] Medical History (Updated 01/27/22 @ 13:03 by Saurabh Rogel MD) Alcohol dependence Depression Gastritis GERD (gastroesophageal reflux disease) Pancreatitis Panic disorder PTSD (post-traumatic stress disorder) Surgical History S/P right knee surgery Social History Smoking Status: Current some day smoker What tobacco products do you use: cigarettes Second hand tobacco smoke exposure: Yes How often do you have a drink containing alcohol: 2-3 times a week How many standard drinks containing alcohol do you have on a typical day: 1 or 2 How often do you have six or more drinks on one occasion: Less than monthly AUDIT-C Alcohol total score: 4 Non-prescribed substance use: denies use Exam Narrative: Exam Narrative: Examination reveals a fit healthy gentleman in no apparent distress in room 6, his pupils are equal round reactive to light there is no scleral icterus or redness TMs are normal oropharynx is normal there is no adenopathy anterior posterior chains, chest is good air entry bilaterally with no wheezing crackles noted his heart sounds are normal, abdomen is soft, deep palpation reveals some discomfort but not a lot in the epigastric region, no organomegaly, bowel sounds are normal, moves all extremities independently and well, good color, and hydration status is excellent, neurologically intact in his upper lower extremities. Const: Vital Signs, click to edit/add: Vital Signs - 24 hr 01/27/22 10:29 01/27/22 12:27 Temperature 98.4 F Pulse Rate [Right Pulse Oximeter] 79 70 Respiratory Rate 18 18 Blood Pressure [Ri ght Upper Arm] 172/122 H 165/108 H Pulse Oximetry 96 95 Oxygen Delivery Me thod Room Air Room Air Documenting provider has reviewed patient's vital signs: yes Course Course Hospital Course: I had a long discussion with the gentleman this is all due to the fact that he drinks too much alcohol, he is to get back to he either treatment or stop alcohol use we talked to ways he could do this, he does not have pancreatitis currently, and I would not treat him with narcotic medications given the combination with the benzodiazepines, and also the fact that we will eventually turn him into dependent on this. I would recommend that he take the Protonix, use of Zofran for nausea, and follow-up with primary care or his counselor, for help with this. I reviewed with him that his laboratory work was reasonable with the exception of his liver being damage from the alcohol, implore him to consider stopping this. He was in agreement with this. Vital Signs Vital signs: Initial Vital Signs Temperature 98.4 F 01/27/22 10:29 Temperature Source Temporal Artery Scan 01/27/22 10:29 Pulse Rate 79 01/27/22 10:29 Respiratory Rate 18 01/27/22 10:29 Blood Pressure 172/122 H 01/27/22 10:29 Blood Pressure Mean 138 01/27/22 10:29 Blood Pressure Position Sitting 01/27/22 10:29 Pulse Oximetry 96 01/27/22 10:29 Oxygen Delivery Method 01/27/22 10:29 Vital Signs Temperature 98.4 F 01/27/22 10:29 Pulse Rate 79 01/27/22 10:29 Respiratory Rate 18 01/27/22 10:29 Blood Pressure 172/122 H 01/27/22 10:29 Pulse Oximetry 96 01/27/22 10:29 Oxygen Delivery Method 01/27/22 10:29 Temperature 98.4 F 01/27/22 10:29 Pulse Rate 70 01/27/22 12:27 Respiratory Rate 18 01/27/22 12:27 Blood Pressure 165/108 H 01/27/22 12:27 Pulse Oximetry 95 01/27/22 12:27 Oxygen Delivery Method 01/27/22 12:27 MDM - Abdominal Pain MDM Narrative Medical decision making narrative: During this evaluation of this patient I considered multiple differential diagnosis is which included the life-threatening such as appendicitis, aortic aneurysm, mesenteric ischemia, bowel perforation, volvulus, and bowel obstruction. Other differential diagnosis is include but are not limited to cholecystitis, pancreatitis, hepatitis, gastritis, GERD, diverticulitis, peptic ulcer disease, pyelonephritis/UTI, renal colic/stone, testicular torsion as well as other acute scrotal processes, inflammatory bowel disease, as well as other etiologies Differential Diagnosis Differential diagnosis: Likely abdominal pain Medical Records Attestation: I reviewed the patient's medical records. Lab Data Attestation: I reviewed the patient's lab results. Labs: Lab Results 01/27/22 01/27/22 01/27/22 Range/Units 11:10 11:10 11:10 WBC 8.85 (4.50-11.00) K/uL RBC 4.35 (4.30-5.90) m/uL Hgb 15.2 (13.5-17.5) gm/dL Hct 42.9 (37.0-53.0) % MCV 99 (80-100) fL MCH 35 H (26-34) pg MCHC 35 (32-36) gm/dL RDW Coeff of Clint 13.3 (11.5-15.5) % Plt Count 204 (140-440) K/uL Neut % (Auto) 75.9 H (42.0-72.0) % Lymph % (Auto) 16.6 L (20-44) % Camas % (Auto) 5.6 (0.0-11.0) % Eos % (Auto) 1.2 (0.0-7.0) % Baso % (Auto) 0.6 (0.0-3.0) % Neut # (Auto) 6.70 (1.7-7.0) K/uL Lymph # (Auto) 1.50 (0.90-2.90) K/uL Camas # (Auto) 0.50 (0.00-0.90) K/UL Eos # (Auto) 0.11 (0.00-0.50) K/uL Baso # (Auto) 0.05 (0.00-0.30) K/uL Abs Immat Gran (auto) 0.01 (0.00-0.30) K/uL Imm/Tot Granulo (auto) 0.1 % INR 1.01 (0.91-1.10) APTT 34 H (23-33) Seconds Sodium 137 (135-149) mmol/L Potassium 3.2 L (3.6-5.1) mmol/L Chloride 105 (96-114) mmol/L Carbon Dioxide 23 (20-32) mmol/L BUN 7 (5-24) mg/dL Creatinine 0.5 (0.5-1.5) mg/dL Estimated Creat Clear 184.61 Estimated GFR 127 ml/min Glucose 140 H (60-115) mg/dL Calcium 9.1 (8.4-10.6) mg/dL Total Bilirubin 1.2 (0.1-1.5) mg/dL Direct Bilirubin 0.2 (0.0-0.5) mg/dL AST 191 H (12-35) U/L ALT 200 H (4-50) U/L Alkaline Phosphatase 149 (40-150) U/L Total Protein 6.6 (6.0-8.3) g/dL Albumin 4.0 (3.3-5.0) g/dL Amylase 63 (18-89) U/L Lipase 174 (23-300) U/L Ethyl Alcohol 0.02 (0.01-0.03) % Discharge Plan Discharge Clinical Impression: Acute alcoholic gastritis, Acute alcoholic hepatitis, Acute hypokalemia Patient Disposition: Home, Self-Care Condition: Stable Instructions: Gastritis (DC), Potassium Content of Foods List (ED), Hypokalemia (ED), Alcoholic Hepatitis (ED) Additional Instructions: Home, rest, avoidance of alcohol is paramount, I refilled her Prozac, you should follow-up with her primary care physician her psych provider, this all will impr ove if you stop the alcohol consumption, his is very toxic to your liver. Prescriptions: New fluoxetine [Prozac] 40 mg capsule 40 mg PO DAILY Qty: 30 1RF potassium chloride 20 mEq tablet extended release 20 meq PO DAILY Qty: 30 0RF No Action hydrocodone-acetaminophen 5-325 mg tablet 1 tab PO TID PRN (Reason: pain) Qty: 5 0RF fluoxetine 40 mg capsule omeprazole 20 mg capsule,delayed release(DR/EC) Creon 24,000-76,000 -120,000 unit capsule,delayed release(DR/EC) PO hydrocodone-acetaminophen 5-325 mg tablet 1 tab PO Q8H Qty: 14 0RF Follow Up/Referrals: Danni Brower MD [Primary Care Provider] - Stand Alone Forms: [employer] Info Instructions
== END 2022-01-27 13:14 | disposition home or self-care (01) ==
PROVIDERS: Emergency Provider Family Medicine; PCP Family Medicine
DX: K29.20 Alcoholic gastritis without bleeding (principal); K70.10 Alcoholic hepatitis without ascites; E87.6 Hypokalemia
CPT/HCPCS: 36415; 80048; 80076; 82077; 82150; 83690; 85025; 85610; 85730; 96361; 96374; 96375; 99284; A9270; C9113; J2405; J7030

== ENCOUNTER 2022-10-30 19:13 | Inpatient (IN) | payer OTHER, SELFPAY ==
[2022-10-30] VITALS (12 sets, daily range): BP systolic 114–129; BP diastolic 79–89; PULSE 73–88; RESP 16–18; TEMP 36.3–36.9; O2SAT 88–96; BMI 29.7
[2022-10-30 19:39] LABS: Lactate* 3.3 mmol/L (0.5-1.9)
--- NOTE | 2022-10-30 19:44 | CRLHL7_ITS ---
For Patients: As a result of the Century Cures Act, medical imaging exams and procedure reports are released immediately into your electronic medical record. You may view this report before your referring provider. If you have questions, please contact your health care provider. Indication: Abdominal pain Technique: CT abdomen and pelvis with IV contrast Please note that all CT scans at this facility use dose modulation, iterative reconstruction, and/or weight-based dosing when appropriate to reduce radiation dose to as low as reasonably achievable. Comparison: CT dated 09/07/2022, 10/22/2022 Findings: Lung bases clear. Normal heart size. No pericardial effusion. Severe hepatic steatosis. Cirrhotic liver morphology. No definite focal liver lesion on single-phase examination. Hepatic and portal veins appear patent. Gallbladder unremarkable. No biliary dilatation. Adrenal glands, kidneys, spleen, pancreas, stomach and duodenum are unremarkable. Normal course and caliber of the abdominal aorta and the IVC. The aortic side branches and the renal veins appear patent. Now lymphadenopathy. Prostate and bladder are unremarkable. No bowel obstruction. Right colonic wall thickening likely related to liver disease. Varices in the upper abdomen with recanalization the periumbilical veins. Small to moderate volume ascites. No retroperitoneal mass or hematoma. No acute osseous abnormality. No body wall abnormality. Impression: 1. No acute abnormality within the abdomen or pelvis. 2. Cirrhotic liver morphology and sequela of portal hypertension to include varices, ascites and portal colopathy. Please note that all CT scans at this facility use dose modulation, iterative reconstruction, and/or weight-based dosing when appropriate to reduce radiation dose to as low as reasonably achievable. Dictated by Christiano Guillory MD @ 10/30/2022 8:35:52 PM (Electronically Signed)
--- NOTE | 2022-10-30 19:45 | ED_ITS ---
HPI - General Adult General Time Seen by Provider: 19:46 Date Seen: 10/30/22 Chief complaint: Abdominal Pain Stated complaint: Severe abdominal pain Time Seen by Provider: 10/30/22 19:24 Source: patient, RN notes reviewed and old records reviewed Mode of arrival: ambulatory Limitations: no limitations History of Present Illness HPI narrative: 47-year-old male who presents today with abdominal pain. This is been going on since yesterday. Pacing admits to chronic alcohol use, quit drinking about 2 weeks ago but did have some drinks today. Nausea and vomiting accompanying this, abdominal distension, no diarrhea. Denies fevers or chills although feels weak. Denies urinary symptoms. Related Data Home Medications Medication Instructions Recorded Confirmed fluoxetine 40 mg capsule mg 10/15/21 [id number]-[id number] cap PO 10/15/21 24,000-76,000-120,000 unit capsule,delayed rel (Creon) omeprazole 20 mg capsule,delayed mg 10/15/21 release Previous Rx's Medication Instructions Recorded hydrocodone 5 mg-acetaminophen 325 1 tab PO Q8H abdominal pain #14 10/15/21 mg tablet tabs hydrocodone 5 mg-acetaminophen 325 1 tab PO TID PRN pain #5 tabs 11/25/21 mg tablet fluoxetine 40 mg capsule (Prozac) 40 mg PO DAILY #30 caps 01/27/22 potassium chloride 20 mEq 20 meq PO DAILY #30 tabs 01/27/22 tablet,extended release Allergies Allergy/AdvReac Type Severity Reaction Status Date / Time Penicillins Allergy Unknown Verified 10/30/22 19:57 [facility] Medical History (Updated 10/30/22 @ 21:43 by Evangelist Babcock MD) PTSD (post-traumatic stress disorder) ?F43.10 - Post-traumatic stress disorder, unspecified (ICD-10) Panic disorder ?F41.0 - Panic disorder [episodic paroxysmal anxiety] (ICD-10) Alcohol dependence ?F10.20 - Alcohol dependence, uncomplicated (ICD-10) Gastritis ?K29.70 - Gastritis, unspecified, without bleeding (ICD-10) Depression ?F32.A - Depression, unspecified (ICD-10) GERD (gastroesophageal reflux disease) ?K21.9 - Gastro-esophageal reflux disease without esophagitis (ICD-10) Pancreatitis ?K85.90 - Acute pancreatitis without necrosis or infection, unspecified (ICD- 10) Surgical History S/P right knee surgery ?Z98.890 - Other specified postprocedural states (ICD-10) Social History Smoking Status: Current some day smoker What tobacco products do you use: cigarettes Second hand tobacco smoke exposure: Yes How often do you have a drink containing alcohol: 2-3 times a week How many standard drinks containing alcohol do you have on a typical day: 3 or 4 How often do you have six or more drinks on one occasion: Weekly AUDIT-C Alcohol total score: 7 Non-prescribed substance use: denies use Exam Narrative: Exam Narrative: General: Well-developed and well-nourished, no acute distress Head: Atraumatic and normocephalic Eyes: Pupils are equal reactive, extraocular motions intact, conjunctiva clear ENT: External nose and ears are normal, posterior pharynx without erythema or exudate Neck: No midline cervical tenderness, full spontaneous range of motion the neck, trachea midline, no adenopathy Heart: Regular rate and rhythm no murmurs or thrills Lungs: Clear to auscultation bilaterally without wheezes or crackles Abdomen: Abdomen is distended, rigid throughout, absent bowel sounds, mottling of the abdomen Musculoskeletal: No tenderness, deformity, or edema Neurologic: Awake, alert, and oriented x3, no gross focal neurologic deficits, cranial nerves intact as tested Psych: Mood and affect are appropriate Skin: No rashes, no mottling of the lower extremities Const: Vital Signs, click to edit/add: Vital Signs - 24 hr 10/30/22 19:19 10/30/22 20:49 10/30/22 21:00 Temperature 97.4 F L Pulse Rate 77 79 Pulse Rate [Pulse Oximeter] 81 Respiratory Rate 18 Blood Pressure [Ri ght Upper Arm] 114/79 Pulse Oximetry 96 91 91 Oxygen Delivery Me thod Room Air 10/30/22 21:15 Temperature Pulse Rate 79 Pulse Rate [Pulse Oximeter] Respiratory Rate Blood Pressure [Ri ght Upper Arm] Pulse Oximetry 88 Oxygen Delivery Me thod Course Course Hospital Course: Patient seen and examined, prior records are reviewed. Patient with history of alcohol dependence who presents today with abdominal pain. He is concerned about ascites, on exam he is vital E stable but abdomen is distended and rigid. Exam is consistent with peritonitis, perforation versus SBP. Labs and CT scan are ordered. Reevaluation(s) Time of Reevaluation #1: 20:43 Reevaluation #1: Labs independently interpreted by me demonstrate hypokalemia which will be replaced intravenously, reassuring creatinine elevated AST, ALT, and alkaline phosphatase with normal amylase, unfortunately lipase analyzer is down tonight. Lactate is elevated at 3.3, IV fluids have been initiated. CT scan independently interpreted by me demonstrates cirrhosis, portal hypertension with varices, ascites. Cbc is pending. Dilaudid IV is been given and patient is requesting additional dose. Anticipate admission and likely will need perito itz fluid sampling for SBP. Time of Reevaluation #2: 21:04 Reevaluation #2: Patient rechecked, he is feeling better in remains finally stable. We discussed findings on CT and labs, including hypokalemia and elevated lactate as well as small to moderate volume ascites. Discussed concern for SBP given recent paracentesis and peritoneal abdominal exam. We discussed diagnostic paracentesis. We discussed risks and benefits of this including pain, infection, bleeding, abdominal perforation. Patient verbalized understanding of this and is agreeable proceed. Time of Reevaluation #3: 21:41 Reevaluation #3: Care discussed with Dr. Villarreal and kelly, hospitalist for admission. Waiting for sterile probe covers for paracentesis. Vital Signs Vital signs: Initial Vital Signs Temperature 97.4 F L 10/30/22 19:19 Temperature Source Temporal Artery Scan 10/30/22 19:19 Pulse Rate 81 10/30/22 19:19 Respiratory Rate 18 10/30/22 19:19 Blood Pressure 114/79 10/30/22 19:19 Blood Pressure Mean 90 10/30/22 19:19 Pulse Oximetry 96 10/30/22 19:19 Oxygen Delivery Method Room Air 10/30/22 19:19 Vital Signs Temperature 97.4 F L 10/30/22 19:19 Pulse Rate 81 10/30/22 19:19 Respiratory Rate 18 10/30/22 19:19 Blood Pressure 114/79 10/30/22 19:19 Pulse Oximetry 96 10/30/22 19:19 Oxygen Delivery Method Room Air 10/30/22 19:19 Temperature 97.4 F L 10/30/22 19:19 Pulse Rate 79 10/30/22 21:15 Respiratory Rate 18 10/30/22 19:19 Blood Pressure 114/79 10/30/22 19:19 Pulse Oximetry 88 10/30/22 21:15 Oxygen Delivery Method Room Air 10/30/22 19:19 Medical Decision Making Lab Data Labs: Lab Results 10/30/22 10/30/22 10/30/22 Range/Units 19:23 19:31 20:42 WBC 8.71 (4.50-11.00) K/uL RBC 4.66 (4.30-5.90) m/uL Hgb 16.4 (13.5-17.5) gm/dL Hct 46.7 (37.0-53.0) % MCV 100 (80-100) fL MCH 35 H (26-34) pg MCHC 35 (32-36) gm/dL RDW Coeff of Clint 12.8 (11.5-15.5) % Plt Count 265 (140-440) K/uL Neut % (Auto) 54.2 (42.0-72.0) % Lymph % (Auto) 34.2 (20-44) % Dickson % (Auto) 7.6 (0.0-11.0) % Eos % (Auto) 2.3 (0.0-7.0) % Baso % (Auto) 1.0 (0.0-3.0) % Neut # (Auto) 4.72 (1.7-7.0) K/uL Lymph # (Auto) 2.98 H (0.90-2.90) K/uL Dickson # (Auto) 0.70 (0.00-0.90) K/UL Eos # (Auto) 0.20 (0.00-0.50) K/uL Baso # (Auto) 0.09 (0.00-0.30) K/uL Abs Immat Gran (auto) 0.06 (0.00-0.30) K/uL Imm/Tot Granulo (auto) 0.7 % Sodium 134 L (135-149) mmol/L Potassium 2.6 L* (3.6-5.1) mmol/L Chloride 98 (96-114) mmol/L Carbon Dioxide 27 (20-32) mmol/L Anion Gap 9 (7-15) mEq/L BUN 3 L (5-24) mg/dL Creatinine 0.6 (0.5-1.5) mg/dL Estimated Creat Clear 162.10 Estimated GFR 120 ml/min Glucose 141 H (60-115) mg/dL Lactate 3.3 H (0.5-1.9) mmol/L Calcium 7.8 L (8.4-10.6) mg/dL Magnesium 2.0 (1.5-2.6) mg/dL Total Bilirubin 1.2 (0.1-1.5) mg/dL Direct Bilirubin 0.5 (0.0-0.5) mg/dL AST 182 H (12-35) U/L ALT 58 H (4-50) U/L Alkaline Phosphatase 300 H (40-150) U/L NT-Pro-B Natriuret Pep 66 pg/mL Total Protein 6.9 (6.0-8.3) g/dL Albumin 3.0 L (3.3-5.0) g/dL Amylase 42 (18-89) U/L Lab Acknowledgement Test Added POC Troponin I 0.01 (0.01-0.04) ng/ml Discharge Plan Discharge Clinical Impression: Alcoholic cirrhosis of liver with ascites, Abdominal pain, Acute hypokalemia Patient Disposition: Admitted As Observation Procedures Paracentesis Pre procedure diagnosis: Cirrhosis, abdominal pain, concern for SBP Post procedure diagnosis: Same Site marking: site marked Verification/time out: correct patient and correct site Name of person performing procedure: Evangelist Babcock Indication: possible spontaneous bacterial peritonitis Imaging guidance used?: Yes Procedure: diagnostic paracentesis Location: RLQ Bedside Ultrasound Used: yes, real-time guidance Preparation: 11 blade used to make shagufta in skin Anesthesia: lidocaine 1% and with Epi Amount of anesthesia used (mL): 10 Amount of fluid obtained (mL): 2 Fluid: cloudy Size of Needle Used: 21 Post Procedure Exam: awake, alert Estimated blood loss (if any): less than 5mls Complications: none Patient Tolerated Procedure: well Additional Comments: Written consent was obtained after discussing risks including bleeding, pain, infection, bowel injury, liver injury. Ultrasound was used to visualize largest fluid collection which was approximately cm in depth. Lidocaine 1% with epinephrine 10 mL total was injected subcutaneously and in the deeper tissues. Wound was prepped with Betadine and draped sterilely, sterile probe cover was used. An 11 blade was used to make a scan stab incision and under direct ultrasound visualization, a 21 gauge needle was introduced using Z technique. The needle was observed to enter the peritoneal space and fluid was obtained. Proximally 2 mL of cloudy but not purulent fluid was obtained. Needle was withdrawn and a single [id number] hemostatic suture of 5 0 Vicryl was placed. Patient tolerated this well and specimen was sent for Gram stain and culture.
[2022-10-30 19:54] LABS: Troponin, Point-of-Care* 0.01 ng/ml (0.01-0.04)
[2022-10-30 20:10] LABS: Chloride* 98 mmol/L (96-114); Sodium* 134 mmol/L (135-149)
[2022-10-30 20:12] LABS: Amylase* 42 U/L (18-89)
[2022-10-30 20:13] LABS: Alanine Aminotransferase* 58 U/L (4-50); Alkaline Phosphatase* 300 U/L (40-150); Anion Gap 9 mEq/L (7-15); Aspartate Amino Transferase* 182 U/L (12-35); Bilirubin Direct* 0.5 mg/dL (0.0-0.5); Bilirubin Total* 1.2 mg/dL (0.1-1.5); Blood Urea Nitrogen* 3 mg/dL (5-24); Calcium* 7.8 mg/dL (8.4-10.6); Carbon Dioxide* 27 mmol/L (20-32); Creatinine* 0.6 mg/dL (0.5-1.5); Estimated Glomerular Filt Rate 120 ml/min; Glucose* 141 mg/dL (60-115); Total Protein* 6.9 g/dL (6.0-8.3)
[2022-10-30 20:20] LABS: Potassium* 2.6 mmol/L (3.6-5.1)
[2022-10-30 20:22] LABS: NT Pro B Type NatriureticPept* 66 pg/mL
[2022-10-30] MEDS: HYDROmorphone 0.5 mg/0.5 ml inj IVP ×3 (20:24→22:33)
[2022-10-30] MEDS: 0.9 % SODIUM CHLORIDE 1000 ml 1,000 ML 6000 ML IV (20:24)
[2022-10-30] MEDS: ONDANSETRON 2 MG/ML inj 4 MG IVP ×2 (20:24→23:48)
[2022-10-30] MEDS: 0.9 % SODIUM CHLORIDE 1000 ml 1,000 ML IV (20:50)
[2022-10-30 21:08] LABS: Basophils Absolute Auto 0.09 K/uL (0.00-0.30); Eosinophils Percent Auto 2.3 % (0.0-7.0); Hematocrit 46.7 % (37.0-53.0); Hemoglobin* 16.4 gm/dL (13.5-17.5); Immature Granulocytes Abs Auto 0.06 K/uL (0.00-0.30); Immature Granulocytes Pct Auto 0.7 %; Lymphocytes Absolute Auto 2.98 K/uL (0.90-2.90); Lymphocytes Percent Auto 34.2 % (20-44); Mean Corpuscular HGB Conc 35 gm/dL (32-36); Mean Corpuscular Hemoglobin 35 pg (26-34); Mean Corpuscular Volume 100 fL (80-100); Monocytes Percent Auto 7.6 % (0.0-11.0); Neutrophils Absolute Auto 4.72 K/uL (1.7-7.0); Neutrophils Percent Auto 54.2 % (42.0-72.0); Platelet Count* 265 K/uL (140-440); RDW Coefficient of Variation % 12.8 % (11.5-15.5); Red Blood Count 4.66 m/uL (4.30-5.90); White Blood Count* 8.71 K/uL (4.50-11.00)
[2022-10-30 21:11] LABS: Slide Review Reflex No
[2022-10-30] MEDS: POTASSIUM CHLORIDE 10 MEQ/100 ML PIGGYBACK 100 MEQ IVPB ×2 (21:19→22:26)
--- NOTE | 2022-10-30 22:22 | PM.IMHP1 ---
Hospitalist- H&P: HPI History of Present Illness Date Seen: 10/30/22 Chief complaint: Severe abdominal pain Narrative: Roderick Granados is a 47 year old male who presented to the emergency room for acute onset of abdominal pain that started this afternoon. No inciting incident, no new foods. Has never had pain like this before. Associated symptoms include nausea and vomiting. No hematemesis. No diarrhea. Known history of alcoholic liver disease, first noted to have ascites while in the [place] ER last week; at that time had 2.5 L taken off via paracentesis. Negative cultures, not admitted at that time. He did not have pain during ER visit last week. ER Course and Findings: - potassium 2.6, supplementation initiated - CT scan of abdomen reveals hepatic steatosis, cirrhosis, + varices, ascites - elevated LFTs, lactate 3.3 - bedside paracentesis performed by ER physician, empiric Cefepime initiated given symptoms and risk factors Patient's medical history updated below. PCP is Dr. Sim at [facility]. He also has a first appointment scheduled with GI to followup on his liver disease. No history of seizures or severe alcohol withdrawal symptoms. Last drink earlier today. Review of Systems Status of ROS: Reports: 10 or more systems reviewed and unremarkable except as noted in History and below [facility] Medical History (Updated 10/30/22 @ 23:03 by Maddy Leggett MD) PTSD (post-traumatic stress disorder) ?F43.10 - Post-traumatic stress disorder, unspecified (ICD-10) Panic disorder ?F41.0 - Panic disorder [episodic paroxysmal anxiety] (ICD-10) Alcohol dependence ?F10.20 - Alcohol dependence, uncomplicated (ICD-10) Gastritis ?K29.70 - Gastritis, unspecified, without bleeding (ICD-10) Depression ?F32.A - Depression, unspecified (ICD-10) GERD (gastroesophageal reflux disease) ?K21.9 - Gastro-esophageal reflux disease without esophagitis (ICD-10) Pancreatitis ?K85.90 - Acute pancreatitis without necrosis or infection, unspecified (ICD-10) Surgical History (Updated 10/30/22 @ 22:22 by Maddy Leggett MD) S/P right knee surgery ?Z98.890 - Other specified postprocedural states (ICD-10) Social History (Updated 10/30/22 @ 23:00 by Maddy Leggett MD) Narrative: Lives with Anna (would be medical decision maker if needed) and 6yo son, infant daughter of SIDS in 2019. Social nicotine use, intermittently has daily ETOH use. In AA with good support from and friends. Full Code. Smoking Status: Current some day smoker What tobacco products do you use: cigarettes Second hand tobacco smoke exposure: Yes How often do you have a drink containing alcohol: 2-3 times a week How many standard drinks containing alcohol do you have on a typical day: 3 or 4 How often do you have six or more drinks on one occasion: Weekly AUDIT-C Alcohol total score: 7 Non-prescribed substance use: denies use Meds Home Medications and Allergies Home Medications Medication Instructions Recorded Confirmed Type omeprazole 20 mg capsule,delayed 20 mg PO DAILY 10/15/21 10/30/22 History release escitalopram oxalate 20 mg tablet 20 mg PO DAILY 10/30/22 10/30/22 History losartan 25 mg tablet 25 mg PO DAILY 10/30/22 10/30/22 History spironolactone 25 mg tablet 25 mg PO DAILY 10/30/22 10/30/22 History Home Medication Comments: - recently started on spironolactone (after ER visit last week) Allergies Allergy/AdvReac Type Severity Reaction Status Date / Time Penicillins Allergy Unknown Verified 10/30/22 19:57 Allergies/Adverse Reaction Comments: Hasn't had PCN in years, tolerated Cephalosporins Exam Narrative: Exam Narrative: GEN: Alert and oriented, nontoxic HEENT: EOMIs bilaterally, no scleral icterus CV: RRR, No concerning murmurs R: LCTA bilaterally without concerning wheezing, air movement is adequate Ab: distended, + ttp, + fluid wave Ext: wwp, trace ankle edema Skin: Spider angiomas noted on abdomen, scattered abrasions BUE from new puppy Neuro: Nonfocal Psych: Appropriate Const: Vital Signs, click to edit/add: Vital Signs - 24 hr 10/30/22 19:19 10/30/22 20:49 10/30/22 21:00 Temperature 97.4 F L Pulse Rate 77 79 Pulse Rate [Pulse Oximeter] 81 Respiratory Rate 18 Blood Pressure [Ri ght Upper Arm] 114/79 Pulse Oximetry 96 91 91 Oxygen Delivery Me thod Room Air 10/30/22 21:15 Temperature Pulse Rate 79 Pulse Rate [Pulse Oximeter] Respiratory Rate Blood Pressure [Ri ght Upper Arm] Pulse Oximetry 88 Oxygen Delivery [facility] Hospitalist - H&P: Result Labs Labs: Short CBC 10/30/22 Range/Units 19:31 WBC 8.71 (4.50-11.00) K/uL Hgb 16.4 (13.5-17.5) gm/dL Hct 46.7 (37.0-53.0) % Plt Count 265 (140-440) K/uL BMP 10/30/22 19:31 Sodium 134 L Potassium 2.6 L* Chloride 98 Carbon Dioxide 27 BUN 3 L Creatinine 0.6 Glucose 141 H Calcium 7.8 L Liver Function 10/30/22 Range/Units 19:31 Total Bilirubin 1.2 (0.1-1.5) mg/dL Direct Bilirubin 0.5 (0.0-0.5) mg/dL AST 182 H (12-35) U/L ALT 58 H (4-50) U/L Alkaline Phosphatase 300 H (40-150) U/L Albumin 3.0 L (3.3-5.0) g/dL Assessment and Plan Assessment and plan (1) Alcoholic cirrhosis of liver with ascites: Problem comment: - MELD score 11 - patient understands objective severity of disease - has appointment scheduled with [facility] as an outpatient - CIWA protocol, Spironolactone, follow labs Status: Acute (2) Abdominal pain: Problem comment: - concerning for SBP - Cefepime (10/30), await fluid cultures from paracentesis Status: Acute (3) Acute hypokalemia: Problem comment: - replace and follow - increase Spironolactone dosing to 50mg Qd Status: Acute Plan - per above - SCDs for ppx
[2022-10-30 23:02] LABS: BF Total Volume* 3; Mononuclear WBC Body Fluid* 79 %; Polynuclear WBC Body Fluid* 21 %; RBC, Body Fluid* 4000 Cells/uL; WBC, Body Fluid* 202 Cells/uL
[2022-10-30 23:03] LABS: BF Clarity* Slightly Cloudy; BF Color Blood Tinged
[2022-10-30] MEDS: MORPHINE 4 MG/ML INJ IVP (23:48)
[2022-10-30] MEDS: THIAMINE 100 MG TABLET PO (23:49)
[2022-10-31] VITALS (10 sets, daily range): BP systolic 113–131; BP diastolic 78–97; PULSE 71–89; RESP 14–16; TEMP 36.7–36.9; O2SAT 89–95
[2022-10-31] MEDS: CEFEPIME HCL 2 GM in 0.9 % SODIUM CHLORIDE Mini-bag 100 ML IVPB ×4 (00:25→23:03)
[2022-10-31] MEDS: POTASSIUM CHLORIDE 10 MEQ, LIDOCAINE 1 % 1 ML in 0.9 % SODIUM CHLORIDE 100 ml 100 ML 106 MEQ IVPB (00:30)
--- NOTE | 2022-10-31 01:10 | P.IMPN_ITS ---
Progress Note: A&P Assessment and plan (1) Tobacco dependence: Status: Acute Plan [facility] E hospitalist collaboration: Nursing noted patient requesting nicontrol inhaler (nicotine inhaler) instead of nicotine patch and reported they do carry. Will add. Please call e hospitalist with questions. Subjective Date Seen: 10/31/22 Exam Const: Vital Signs, click to edit/add: Vital Signs - 24 hr 10/30/22 19:19 10/30/22 20:49 10/30/22 21:00 Temperature 97.4 F L Pulse Rate 77 79 Pulse Rate [Pulse Oximeter] 81 Respiratory Rate 18 Blood Pressure Blood Pressure [Ri ght Arm] Blood Pressure [Ri ght Upper Arm] 114/79 Pulse Oximetry 96 91 91 Oxygen Delivery Me thod Room Air 10/30/22 21:15 10/30/22 21:30 10/30/22 21:45 Temperature Pulse Rate 79 82 88 Pulse Rate [Pulse Oximeter] Respiratory Rate Blood Pressure Blood Pressure [Ri ght Arm] Blood Pressure [Ri ght Upper Arm] Pulse Oximetry 88 88 90 Oxygen Delivery Me thod 10/30/22 22:00 10/30/22 22:15 10/30/22 22:18 Temperature Pulse Rate 87 86 88 Pulse Rate [Pulse Oximeter] Respiratory Rate Blood Pressure 123/82 Blood Pressure [Ri ght Arm] Blood Pressure [Ri ght Upper Arm] Pulse Oximetry 92 93 90 Oxygen Delivery Me thod 10/30/22 22:30 10/30/22 23:00 10/30/22 23:27 Temperature 98.4 F Pulse Rate 85 Pulse Rate [Pulse Oximeter] Respiratory Rate 16 Blood Pressure Blood Pressure [Ri ght Arm] 129/89 Blood Pressure [Ri ght Upper Arm] Pulse Oximetry 92 94 94 Oxygen Delivery Me thod Room Air Room Air Labs Labs: Laboratory Results - last 24 hr 10/30/22 10/30/22 10/30/22 19:23 19:31 20:42 WBC 8.71 RBC 4.66 Hgb 16.4 Hct 46.7 MCV 100 MCH 35 H MCHC 35 RDW Coeff of Clint 12.8 Plt Count 265 Neut % (Auto) 54.2 Lymph % (Auto) 34.2 [place]ancock % (Auto) 7.6 Eos % (Auto) 2.3 Baso % (Auto) 1.0 Neut # (Auto) 4.72 Lymph # (Auto) 2.98 H [place] # (Auto) 0.70 Eos # (Auto) 0.20 Baso # (Auto) 0.09 Abs Immat Gran (auto) 0.06 Imm/Tot Granulo (auto) 0.7 Sodium 134 L Potassium 2.6 L* Chloride 98 Carbon Dioxide 27 Anion Gap 9 BUN 3 L Creatinine 0.6 Estimated Creat Clear 162.10 Estimated GFR 120 Glucose 141 H Lactate 3.3 H Calcium 7.8 L Magnesium 2.0 Total Bilirubin 1.2 Direct Bilirubin 0.5 AST 182 H ALT 58 H Alkaline Phosphatase 300 H NT-Pro-B Natriuret Pep 66 Total Protein 6.9 Albumin 3.0 L Amylase 42 Fluid Volume Fluid Color Fluid Appearance Fluid WBC Fluid RBC Fluid Polynuclear WBCs Fluid Mononuclear WBCs Lab Acknowledgement Test Added POC Troponin I 0.01 10/30/22 22:00 WBC RBC Hgb Hct MCV MCH MCHC RDW Coeff of Clint Plt Count Neut % (Auto) Lymph % (Auto) [place] % (Auto) Eos % (Auto) Baso % (Auto) Neut # (Auto) Lymph # (Auto) [place]ancock # (Auto) Eos # (Auto) Baso # (Auto) Abs Immat Gran (auto) Imm/Tot Granulo (auto) Sodium Potassium Chloride Carbon Dioxide Anion Gap BUN Creatinine Estimated Creat Clear Estimated GFR Glucose Lactate Calcium Magnesium Total Bilirubin Direct Bilirubin AST ALT Alkaline Phosphatase NT-Pro-B Natriuret Pep Total Protein Albumin Amylase Fluid Volume 3 Fluid Color Blood Tinged A Fluid Appearance Slightly Cloudy A Fluid WBC 202 Fluid RBC 4000 Fluid Polynuclear WBCs 21 Fluid Mononuclear WBCs 79 Lab Acknowledgement POC Troponin I
[2022-10-31] MEDS: OXYCODONE 5 MG TABLET PO ×3 (01:15→12:03)
[2022-10-31] MEDS: POTASSIUM CHLORIDE 10 MEQ/100 ML PIGGYBACK 100 MEQ IVPB (02:01)
[2022-10-31] MEDS: MORPHINE 4 MG/ML INJ IVP ×4 (02:28→23:11)
[2022-10-31] MEDS: ONDANSETRON 2 MG/ML inj 4 MG IVP (07:00)
[2022-10-31] MEDS: OMEPRAZOLE 20 MG CAPSULE DR 40 MG PO (07:00)
--- NOTE | 2022-10-31 07:23 | PC.NURSE ---
Pt is alert and oriented x3. Afebrile. Pt reports 7/10 pain in abdomen, pain managed with PRN medications. Pt reported nausea, managed with PRN Zofran. Pt abdomen is currently?round, large, firm and tender to palpation with renetta areas. MD aware.?Pt denies?chest pain, SOB, and vomiting. Pt is tolerating a reg diet?and voiding. Pt is up ad gretel in room. Pt slept intermittently throughout night.??
--- NOTE | 2022-10-31 07:32 | PC.NURSE ---
Pt requested nicotine gum in preference to Nicotine patch. Melchor was call around 0200 for Nicotine gum, and called back saying the put in an order for Nicotine 2mg Gum Buccal Q1H PRN.
[2022-10-31 07:56] LABS: Basophils Absolute Auto 0.05 K/uL (0.00-0.30); Basophils Percent Auto 0.8 % (0.0-3.0); Eosinophils Absolute Auto 0.16 K/uL (0.00-0.50); Eosinophils Percent Auto 2.4 % (0.0-7.0); Hematocrit 41.6 % (37.0-53.0); Hemoglobin* 14.4 gm/dL (13.5-17.5); Lymphocytes Absolute Auto 1.42 K/uL (0.90-2.90); Lymphocytes Percent Auto 21.4 % (20-44); Mean Corpuscular HGB Conc 35 gm/dL (32-36); Mean Corpuscular Hemoglobin 35 pg (26-34); Mean Corpuscular Volume 101 fL (80-100); Monocytes Percent Auto 8.6 % (0.0-11.0); Neutrophils Absolute Auto 4.45 K/uL (1.7-7.0); Neutrophils Percent Auto 66.8 % (42.0-72.0); Platelet Count* 197 K/uL (140-440); RDW Coefficient of Variation % 13.1 % (11.5-15.5); Red Blood Count 4.11 m/uL (4.30-5.90); White Blood Count* 6.65 K/uL (4.50-11.00)
[2022-10-31 08:10] LABS: Ionized Calcium* 1.01 mmol/L (1.11-1.30); Lactate* 1.9 mmol/L (0.5-1.9)
[2022-10-31 08:12] LABS: Slide Review Reflex No
[2022-10-31 08:23] LABS: Albumin* 2.3 g/dL (3.3-5.0); Chloride* 104 mmol/L (96-114); Sodium* 138 mmol/L (135-149)
[2022-10-31 08:24] LABS: INR 1.37 (0.91-1.10); Prothrombin Time 17.7 Seconds
--- NOTE | 2022-10-31 08:24 | PM.IMPN1 ---
Subjective Date Seen: 10/31/22 Interval history: patient scoring 6-8 CIWA endorses tremor endorses intermittent abdominal pain and nausea no vomiting this AM Exam Narrative: Exam Narrative: Gen: no acute dist ress HEENT: NCAT E ALBER mmm Neck: Supp le CV: RRR normal s1 s2 Lungs: CTABA bd: Soft,nt, ndNeu ro: Alert, oriente d, CN grossly inta ct; nonfocal scree elodia?examPsych: ap propriate affectMS K: age appropriate muscle massSkin; Warm, dry no rash on face Gen: no acute dist ress HEENT: NCAT E ALBER mmm Neck: Supp le CV: RRR normal s1 s2 Lungs: CTABA bd: Soft,nt, ndNeu ro: Alert, oriente d, CN grossly inta ct; nonfocal scree elodia?examPsych: ap propriate affectMS K: age appropriate muscle massSkin; Warm, dry no rash on face Const: Vital Signs, click to edit/add: Vital Signs - 24 hr 10/30/22 19:19 10/30/22 20:49 10/30/22 21:00 Temperature 97.4 F L Pulse Rate 77 79 Pulse Rate [Pulse Oximeter] 81 Respiratory Rate 18 Blood Pressure Blood Pressure [Ri ght Arm] Blood Pressure [Ri ght Upper Arm] 114/79 Pulse Oximetry 96 91 91 Oxygen Delivery Me thod Room Air 10/30/22 21:15 10/30/22 21:30 10/30/22 21:45 Temperature Pulse Rate 79 82 88 Pulse Rate [Pulse Oximeter] Respiratory Rate Blood Pressure Blood Pressure [Ri ght Arm] Blood Pressure [Ri ght Upper Arm] Pulse Oximetry 88 88 90 Oxygen Delivery Me thod 10/30/22 22:00 10/30/22 22:15 10/30/22 22:18 Temperature Pulse Rate 87 86 88 Pulse Rate [Pulse Oximeter] Respiratory Rate Blood Pressure 123/82 Blood Pressure [Ri ght Arm] Blood Pressure [Ri ght Upper Arm] Pulse Oximetry 92 93 90 Oxygen Delivery Me thod 10/30/22 22:30 10/30/22 23:00 10/30/22 23:00 Temperature 98.4 F Pulse Rate 85 Pulse Rate [Pulse Oximeter] Respiratory Rate 16 Blood Pressure Blood Pressure [Ri ght Arm] 129/89 Blood Pressure [Ri ght Upper Arm] Pulse Oximetry 92 94 94 Oxygen Delivery Me thod Room Air Room Air 10/30/22 23:00 10/30/22 23:00 10/30/22 23:00 Temperature 98.4 F Pulse Rate 73 Pulse Rate [Pulse Oximeter] Respiratory Rate 16 16 Blood Pressure Blood Pressure [Ri ght Arm] 129/89 Blood Pressure [Ri ght Upper Arm] Pulse Oximetry 94 94 Oxygen Delivery Me thod Room Air Room Air 10/30/22 23:27 10/31/22 02:35 10/31/22 08:06 Temperature 98.4 F 98.5 F Pulse Rate 71 Pulse Rate [Pulse Oximeter] Respiratory Rate 16 16 Blood Pressure Blood Pressure [Ri ght Arm] 129/89 113/78 Blood Pressure [Ri ght Upper Arm] Pulse Oximetry 94 93 Oxygen Delivery Me thod Room Air Room Air Labs Labs: Laboratory Results - last 24 hr 10/30/22 10/30/22 10/30/22 19:23 19:31 20:42 WBC 8.71 RBC 4.66 Hgb 16.4 Hct 46.7 MCV 100 MCH 35 H MCHC 35 RDW Coeff of Clint 12.8 Plt Count 265 Neut % (Auto) 54.2 Lymph % (Auto) 34.2 [place] % (Auto) 7.6 Eos % (Auto) 2.3 Baso % (Auto) 1.0 Neut # (Auto) 4.72 Lymph # (Auto) 2.98 H [place] # (Auto) 0.70 Eos # (Auto) 0.20 Baso # (Auto) 0.09 Abs Immat Gran (auto) 0.06 Imm/Tot Granulo (auto) 0.7 Sodium 134 L Potassium 2.6 L* Chloride 98 Carbon Dioxide 27 Anion Gap 9 BUN 3 L Creatinine 0.6 Estimated Creat Clear 162.10 Estimated GFR 120 Glucose 141 H Lactate 3.3 H Calcium 7.8 L Ionized Calcium Swati Magnesium 2.0 Total Bilirubin 1.2 Direct Bilirubin 0.5 AST 182 H ALT 58 H Alkaline Phosphatase 300 H NT-Pro-B Natriuret Pep 66 Total Protein 6.9 Albumin 3.0 L Amylase 42 Fluid Volume Fluid Color Fluid Appearance Fluid WBC Fluid RBC Fluid Polynuclear WBCs Fluid Mononuclear WBCs Lab Acknowledgement Test Added POC Troponin I 0.01 10/30/22 10/31/22 22:00 07:47 WBC 6.65 RBC 4.11 L Hgb 14.4 Hct 41.6 MCV 101 H MCH 35 H MCHC 35 RDW Coeff of Clint 13.1 Plt Count 197 Neut % (Auto) 66.8 Lymph % (Auto) 21.4 [place] % (Auto) 8.6 Eos % (Auto) 2.4 Baso % (Auto) 0.8 Neut # (Auto) 4.45 Lymph # (Auto) 1.42 [place] # (Auto) 0.60 Eos # (Auto) 0.16 Baso # (Auto) 0.05 Abs Immat Gran (auto) 0.00 Imm/Tot Granulo (auto) 0.0 Sodium Potassium Chloride Carbon Dioxide Anion Gap BUN Creatinine Estimated Creat Clear Estimated GFR Glucose Lactate 1.9 Calcium Ionized Calcium Swati 1.01 L Magnesium Total Bilirubin Direct Bilirubin AST ALT Alkaline Phosphatase NT-Pro-B Natriuret Pep Total Protein Albumin Amylase Fluid Volume 3 Fluid Color Blood Tinged A Fluid Appearance Slightly Cloudy A Fluid WBC 202 Fluid RBC 4000 Fluid Polynuclear WBCs 21 Fluid Mononuclear WBCs 79 Lab Acknowledgement POC Troponin I
[2022-10-31 08:25] LABS: Anion Gap 5 mEq/L (7-15); Aspartate Amino Transferase* 153 U/L (12-35); Bilirubin Total* 1.2 mg/dL (0.1-1.5); Carbon Dioxide* 29 mmol/L (20-32); Creatinine* 0.5 mg/dL (0.5-1.5); Est. Creatinine Clearance* 194.53; Estimated Glomerular Filt Rate 127 ml/min
[2022-10-31 08:26] LABS: Alanine Aminotransferase* 49 U/L (4-50); Alkaline Phosphatase* 252 U/L (40-150); Glucose* 88 mg/dL (60-115); Total Protein* 5.7 g/dL (6.0-8.3)
[2022-10-31 08:27] LABS: Magnesium* 1.7 mg/dL (1.5-2.6)
[2022-10-31 08:51] LABS: Blood Urea Nitrogen* < 2 mg/dL (5-24)
[2022-10-31] MEDS: NICOTINE 2 MG GUM BUCCAL ×3 (09:00→23:06)
--- NOTE | 2022-10-31 09:04 | PM.IMPN1 ---
Progress Note: A&P Assessment and plan (1) Alcoholic cirrhosis of liver with ascites: Problem details: - patient understands objective severity of disease - has appointment scheduled with [facility] as an outpatient - CIATTILA protocol, Spironolactone, follow labs -10/31 abdominal US and therapeutic paracentesis today discussed with surgery -daily LFTs, INT Status: Acute (2) Abdominal pain: Problem details: - concerning for SBP - Cefepime (10/30), await fluid cultures from paracentesis Status: Acute (3) Acute hypokalemia: Problem details: - replace and follow - increase Spironolactone dosing to 50mg Qd 10/31: Hold aldactone resume once closer to discharge; scheduled potassium, recheck potassium, check mg, replace calcium Status: Acute (4) Tobacco dependence: Status: Acute Time Spent With Patient Total time spent: 45 Subjective Date Seen: 10/31/22 Interval history: patient scoring 6-8 CIWA endorses tremor endorses intermittent abdominal pain and nausea no vomiting this AM Exam Narrative: Exam Narrative: Gen: no acute dist ress HEENT: NCAT E ALBER mmm CV: RRR no rmal s1 s2 Lungs: CTAB Abd:generaliz ed distention no r ebound or guarding Neuro: Alert, or iented, CN grossly intact; nonfocal screening?exam Psy ch: appropriate af fect MSK: age appr opriate muscle mas s Skin; Warm, dry no rash on face Const: Vital Signs, click to edit/add: Vital Signs - 24 hr 10/30/22 19:19 10/30/22 20:49 10/30/22 21:00 Temperature 97.4 F L Pulse Rate 77 79 Pulse Rate [Pulse Oximeter] 81 Respiratory Rate 18 Blood Pressure Blood Pressure [Ri ght Arm] Blood Pressure [Ri ght Upper Arm] 114/79 Pulse Oximetry 96 91 91 Oxygen Delivery Me thod Room Air 10/30/22 21:15 10/30/22 21:30 10/30/22 21:45 Temperature Pulse Rate 79 82 88 Pulse Rate [Pulse Oximeter] Respiratory Rate Blood Pressure Blood Pressure [Ri ght Arm] Blood Pressure [Ri ght Upper Arm] Pulse Oximetry 88 88 90 Oxygen Delivery Me thod 10/30/22 22:00 10/30/22 22:15 10/30/22 22:18 Temperature Pulse Rate 87 86 88 Pulse Rate [Pulse Oximeter] Respiratory Rate Blood Pressure 123/82 Blood Pressure [Ri ght Arm] Blood Pressure [Ri ght Upper Arm] Pulse Oximetry 92 93 90 Oxygen Delivery Me thod 10/30/22 22:30 10/30/22 23:00 10/30/22 23:00 Temperature 98.4 F Pulse Rate 85 Pulse Rate [Pulse Oximeter] Respiratory Rate 16 Blood Pressure Blood Pressure [Ri ght Arm] 129/89 Blood Pressure [Ri ght Upper Arm] Pulse Oximetry 92 94 94 Oxygen Delivery Me thod Room Air Room Air 10/30/22 23:00 10/30/22 23:00 10/30/22 23:00 Temperature 98.4 F Pulse Rate 73 Pulse Rate [Pulse Oximeter] Respiratory Rate 16 16 Blood Pressure Blood Pressure [Ri ght Arm] 129/89 Blood Pressure [Ri ght Upper Arm] Pulse Oximetry 94 94 Oxygen Delivery Me thod Room Air Room Air 10/30/22 23:27 10/31/22 02:35 10/31/22 08:06 Temperature 98.4 F 98.5 F Pulse Rate 71 Pulse Rate [Pulse Oximeter] Respiratory Rate 16 16 Blood Pressure Blood Pressure [Ri ght Arm] 129/89 113/78 Blood Pressure [Ri ght Upper Arm] Pulse Oximetry 94 93 Oxygen Delivery Me thod Room Air Room Air Labs Labs: Laboratory Results - last 24 hr 10/30/22 10/30/22 10/30/22 19:23 19:31 20:42 WBC 8.71 RBC 4.66 Hgb 16.4 Hct 46.7 MCV 100 MCH 35 H MCHC 35 RDW Coeff of Clint 12.8 Plt Count 265 Neut % (Auto) 54.2 Lymph % (Auto) 34.2 Reeves % (Auto) 7.6 Eos % (Auto) 2.3 Baso % (Auto) 1.0 Neut # (Auto) 4.72 Lymph # (Auto) 2.98 H Reeves # (Auto) 0.70 Eos # (Auto) 0.20 Baso # (Auto) 0.09 Abs Immat Gran (auto) 0.06 Imm/Tot Granulo (auto) 0.7 INR Sodium 134 L Potassium 2.6 L* Chloride 98 Carbon Dioxide 27 Anion Gap 9 BUN 3 L Creatinine 0.6 Estimated Creat Clear 162.10 Estimated GFR 120 Glucose 141 H Lactate 3.3 H Calcium 7.8 L Ionized Calcium Swati Magnesium 2.0 Total Bilirubin 1.2 Direct Bilirubin 0.5 AST 182 H ALT 58 H Alkaline Phosphatase 300 H NT-Pro-B Natriuret Pep 66 Total Protein 6.9 Albumin 3.0 L Amylase 42 Fluid Volume Fluid Color Fluid Appearance Fluid WBC Fluid RBC Fluid Polynuclear WBCs Fluid Mononuclear WBCs Lab Acknowledgement Test Added POC Troponin I 0.01 10/30/22 10/31/22 22:00 07:47 WBC 6.65 RBC 4.11 L Hgb 14.4 Hct 41.6 MCV 101 H MCH 35 H MCHC 35 RDW Coeff of Clint 13.1 Plt Count 197 Neut % (Auto) 66.8 Lymph % (Auto) 21.4 [place] % (Auto) 8.6 Eos % (Auto) 2.4 Baso % (Auto) 0.8 Neut # (Auto) 4.45 Lymph # (Auto) 1.42 [place]eves # (Auto) 0.60 Eos # (Auto) 0.16 Baso # (Auto) 0.05 Abs Immat Gran (auto) 0.00 Imm/Tot Granulo (auto) 0.0 INR 1.37 H Sodium 138 Potassium 3.0 L Chloride 104 Carbon Dioxide 29 Anion Gap 5 L BUN < 2 L Creatinine 0.5 Estimated Creat Clear 194.53 Estimated GFR 127 Glucose 88 Lactate 1.9 Calcium 7.0 L Ionized Calcium Swati 1.01 L Magnesium 1.7 Total Bilirubin 1.2 Direct Bilirubin AST 153 H ALT 49 Alkaline Phosphatase 252 H NT-Pro-B Natriuret Pep Total Protein 5.7 L Albumin 2.3 L Amylase Fluid Volume 3 Fluid Color Blood Tinged A Fluid Appearance Slightly Cloudy A Fluid WBC 202 Fluid RBC 4000 Fluid Polynuclear WBCs 21 Fluid Mononuclear WBCs 79 Lab Acknowledgement POC Troponin I
[2022-10-31] MEDS: ESCITALOPRAM 10 MG TABLET 20 MG PO (09:18)
[2022-10-31] MEDS: FOLIC ACID 1 MG TABLET PO (09:18)
[2022-10-31] MEDS: SODIUM CHLORIDE 0.9 % (FLUSH) 10 ML SYRINGE 5 ML IVF ×2 (09:18→20:50)
[2022-10-31] MEDS: POTASSIUM CHLORIDE 10 MEQ CAPSULE ER 40 MEQ PO ×2 (09:29→18:23)
[2022-10-31] MEDS: LORazepam 1 MG TABLET PO ×3 (10:08→14:39)
--- NOTE | 2022-10-31 12:14 | PM.GSCN ---
History of Present Illness Consult details Date Seen: 10/31/22 Consult date: 10/31/22 Narrative: The patient is a 47-year-old male with a fairly recent diagnosis of cirrhosis secondary to alcohol dependence who presented to the emergency room for acute onset of abdominal pain which started yesterday. He has had some nausea with this. No change in bowel habits. He was noted to have ascites in the ER last week and had a paracentesis of 2.5 L. he has not yet seen [facility], however he does have an appointment with [facility] coming up. He has been working on sobriety, however did have an episode where he drank 2 6 packs within this last week. I was asked see the patient for possible therapeutic paracentesis. [facility] Medical History (Updated 10/31/22 @ 13:19 by Maddy Leggett MD) PTSD (post-traumatic stress disorder) ?F43.10 - Post-traumatic stress disorder, unspecified (ICD-10) Panic disorder ?F41.0 - Panic disorder [episodic paroxysmal anxiety] (ICD-10) Alcohol dependence ?F10.20 - Alcohol dependence, uncomplicated (ICD-10) Gastritis ?K29.70 - Gastritis, unspecified, without bleeding (ICD-10) Depression ?F32.A - Depression, unspecified (ICD-10) GERD (gastroesophageal reflux disease) ?K21.9 - Gastro-esophageal reflux disease without esophagitis (ICD-10) Pancreatitis ?K85.90 - Acute pancreatitis without necrosis or infection, unspecified (ICD-10) Surgical History (Updated 10/30/22 @ 22:22 by Maddy Leggett MD) S/P right knee surgery ?Z98.890 - Other specified postprocedural states (ICD-10) Social History (Updated 10/30/22 @ 23:00 by Maddy Leggett MD) Narrative: Lives with Anna (would be medical decision maker if needed) and 6yo son, daughter of SIDS in 2019. Social nicotine use, intermittently has daily ETOH use. In AA with good support from and friends. Full Code. What is your current living situation?: I presently have a place to live Problems where you live: no known problems Problems where you live details: no known problems In the past 12 months, utilities in danger of being shut off: no In the past 12 mos, have been you worried that your food would run out before you had money to buy more?: never true In the past 12 mos, the food you bought just didn't last and you didn't have money to buy more?: never true Smoking Status: Current some day smoker What tobacco products do you use: cigarettes Smoking packs per day: 0.5 Smoking cigarettes per day: 10.0 Do you use any of these nicotine containing products: None Second hand tobacco smoke exposure: Yes How often do you have a drink containing alcohol: 2-3 times a week Alcohol type: beer How many standard drinks containing alcohol do you have on a typical day: 3 or 4 How often do you have six or more drinks on one occasion: Weekly AUDIT-C Alcohol total score: 7 Non-prescribed substance use: denies use Caffeine: No How often does anyone, including family, friends and others, physically hurt you: never How often does anyone, including family, friends and others, insult or talk down to you: never How often does anyone, including family, friends and others, threaten you with harm: never How often does anyone, including family, friends and others, scream or curse at you: never service: Yes Meds Home Medications and Allergies Home Medications Medication Instructions Recorded Confirmed Type omeprazole 20 mg capsule,delayed 20 mg PO DAILY 10/15/21 10/30/22 History release escitalopram oxalate 20 mg tablet 20 mg PO DAILY 10/30/22 10/30/22 History losartan 25 mg tablet 25 mg PO DAILY 10/30/22 10/30/22 History spironolactone 25 mg tablet 25 mg PO DAILY 10/30/22 10/30/22 History Allergies Allergy/AdvReac Type Severity Reaction Status Date / Time Penicillins Allergy Unknown Verified 10/30/22 19:57 Exam Narrative: Exam Narrative: General: No acute distress CV: Regular rate and rhythm Abdomen: Mildly distended. Mildly tender to palpation. Scar from prior paracentesis noted on the right lateral abdomen. There is mottling across his abdomen. No scars noted. Const: Vital Signs, click to edit/add: Vital Signs - 24 hr 10/30/22 19:19 10/30/22 20:49 10/30/22 21:00 Temperature 97.4 F L Pulse Rate 77 79 Pulse Rate [Pulse Oximeter] 81 Pulse Rate [Right Pulse Oximeter] Respiratory Rate 18 Blood Pressure Blood Pressure [Ri ght Arm] Blood Pressure [Ri ght Upper Arm] 114/79 Pulse Oximetry 96 91 91 Oxygen Delivery Me thod Room Air 10/30/22 21:15 10/30/22 21:30 10/30/22 21:45 Temperature Pulse Rate 79 82 88 Pulse Rate [Pulse Oximeter] Pulse Rate [Right Pulse Oximeter] Respiratory Rate Blood Pressure Blood Pressure [Ri ght Arm] Blood Pressure [Ri ght Upper Arm] Pulse Oximetry 88 88 90 Oxygen Delivery Me thod 10/30/22 22:00 10/30/22 22:15 10/30/22 22:18 Temperature Pulse Rate 87 86 88 Pulse Rate [Pulse Oximeter] Pulse Rate [Right Pulse Oximeter] Respiratory Rate Blood Pressure 123/82 Blood Pressure [Ri ght Arm] Blood Pressure [Ri ght Upper Arm] Pulse Oximetry 92 93 90 Oxygen Delivery Me thod 10/30/22 22:30 10/30/22 23:00 10/30/22 23:00 Temperature 98.4 F Pulse Rate 85 Pulse Rate [Pulse Oximeter] Pulse Rate [Right Pulse Oximeter] Respiratory Rate 16 Blood Pressure Blood Pressure [Ri ght Arm] 129/89 Blood Pressure [Ri ght Upper Arm] Pulse Oximetry 92 94 94 Oxygen Delivery Me od Room Air Room Air 10/30/22 23:00 10/30/22 23:00 10/30/22 23:00 Temperature 98.4 F Pulse Rate 73 Pulse Rate [Pulse Oximeter] Pulse Rate [Right Pulse Oximeter] Respiratory Rate 16 16 Blood Pressure Blood Pressure [Ri ght Arm] 129/89 Blood Pressure [Ri ght Upper Arm] Pulse Oximetry 94 94 [facility] 10/30/22 23:27 10/31/22 02:35 10/31/22 07:00 Temperature 98.4 F 98.5 F 98.4 F Pulse Rate Pulse Rate [Pulse Oximeter] Pulse Rate [Right Pulse Oximeter] 71 Respiratory Rate 16 16 Blood Pressure Blood Pressure [Ri ght Arm] 129/89 113/78 116/86 Blood Pressure [Ri ght Upper Arm] Pulse Oximetry 94 93 89 Oxygen Delivery Me thod Room Air Room Air Room Air 10/31/22 07:00 10/31/22 07:00 10/31/22 08:06 Temperature Pulse Rate 71 Pulse Rate [Pulse Oximeter] Pulse Rate [Right Pulse Oximeter] 81 Respiratory Rate 14 Blood Pressure Blood Pressure [Ri ght Arm] Blood Pressure [Ri ght Upper Arm] Pulse Oximetry 94 Oxygen Delivery Me thod Room Air 10/31/22 11:00 Temperature 98.1 F Pulse Rate Pulse Rate [Pulse Oximeter] Pulse Rate [Right Pulse Oximeter] 71 Respiratory Rate 16 Blood Pressure Blood Pressure [Ri ght Arm] 127/97 H Blood Pressure [Ri ght Upper Arm] Pulse Oximetry 92 Oxygen Delivery Me thod Room Air Results Labs Labs: Abnormal lab results 10/30/22 10/30/22 10/31/22 Range/Units 19:31 22:00 07:47 RBC 4.11 L (4.30-5.90) m/uL MCV 101 H (80-100) fL MCH 35 H 35 H (26-34) pg Lymph # (Auto) 2.98 H (0.90-2.90) K/uL INR 1.37 H (0.91-1.10) Sodium 134 L (135-149) mmol/L Potassium 2.6 L* 3.0 L (3.6-5.1) mmol/L Anion Gap 5 L (7-15) mEq/L BUN 3 L < 2 L (5-24) mg/dL Glucose 141 H (60-115) mg/dL Lactate 3.3 H (0.5-1.9) mmol/L Calcium 7.8 L 7.0 L (8.4-10.6) mg/dL Ionized Calcium Swati 1.01 L (1.11-1.30) mmol/L AST 182 H 153 H (12-35) U/L ALT 58 H (4-50) U/L Alkaline Phosphatase 300 H 252 H (40-150) U/L Total Protein 5.7 L (6.0-8.3) g/dL Albumin 3.0 L 2.3 L (3.3-5.0) g/dL Fluid Color Blood Tinged A Fluid Appearance Slightly Cloudy A Diabetes panel 10/30/22 10/31/22 Range/Units 19:31 07:47 Sodium 134 L 138 (135-149) mmol/L Potassium 2.6 L* 3.0 L (3.6-5.1) mmol/L Chloride 98 104 (96-114) mmol/L Carbon Dioxide 27 29 (20-32) mmol/L BUN 3 L < 2 L (5-24) mg/dL Creatinine 0.6 0.5 (0.5-1.5) mg/dL Glucose 141 H 88 (60-115) mg/dL Calcium 7.8 L 7.0 L (8.4-10.6) mg/dL AST 182 H 153 H (12-35) U/L ALT 58 H 49 (4-50) U/L Alkaline Phosphatase 300 H 252 H (40-150) U/L Total Protein 6.9 5.7 L (6.0-8.3) g/dL Albumin 3.0 L 2.3 L (3.3-5.0) g/dL Calcium panel 10/30/22 10/31/22 Range/Units 19:31 07:47 Calcium 7.8 L 7.0 L (8.4-10.6) mg/dL Ionized Calcium Swati 1.01 L (1.11-1.30) mmol/L Albumin 3.0 L 2.3 L (3.3-5.0) g/dL Pituitary panel 10/30/22 10/31/22 Range/Units 19:31 07:47 Sodium 134 L 138 (135-149) mmol/L Potassium 2.6 L* 3.0 L (3.6-5.1) mmol/L Chloride 98 104 (96-114) mmol/L Carbon Dioxide 27 29 (20-32) mmol/L BUN 3 L < 2 L (5-24) mg/dL Creatinine 0.6 0.5 (0.5-1.5) mg/dL Glucose 141 H 88 (60-115) mg/dL Calcium 7.8 L 7.0 L (8.4-10.6) mg/dL Adrenal panel 10/30/22 10/31/22 Range/Units 19:31 07:47 Sodium 134 L 138 (135-149) mmol/L Potassium 2.6 L* 3.0 L (3.6-5.1) mmol/L Chloride 98 104 (96-114) mmol/L Carbon Dioxide 27 29 (20-32) mmol/L BUN 3 L < 2 L (5-24) mg/dL Creatinine 0.6 0.5 (0.5-1.5) mg/dL Glucose 141 H 88 (60-115) mg/dL Calcium 7.8 L 7.0 L (8.4-10.6) mg/dL Total Bilirubin 1.2 1.2 (0.1-1.5) mg/dL AST 182 H 153 H (12-35) U/L ALT 58 H 49 (4-50) U/L Alkaline Phosphatase 300 H 252 H (40-150) U/L Total Protein 6.9 5.7 L (6.0-8.3) g/dL Albumin 3.0 L 2.3 L (3.3-5.0) g/dL All other labs normal. Imaging Abdomen CT scan report/results: report reviewed and image reviewed Additional studies: CT scan of the abdomen pelvis done last evening: Impression: 1. No acute abnormality within the abdomen or pelvis. 2. Cirrhotic liver morphology and sequela of portal hypertension to include varices, ascites and portal colopathy. Please note that all CT scans at this facility use dose modulation, iterative reconstruction, and/or weight-based dosing when appropriate to reduce radiation dose to as low as reasonably achievable. Dictated by Christiano Guillory MD @ 10/30/2022 8:35:52 PM Assessment and Plan Assessment and plan (1) Alcoholic cirrhosis of liver with ascites: Problem comment: - patient understands objective severity of disease - has appointment scheduled with [facility] as an outpatient - CIWA protocol, Spironolactone, follow labs -10/31 abdominal US and therapeutic paracentesis today discussed with surgery -daily LFTs, INT Status: Acute Plan The patient is a 47-year-old male with cirrhosis and ascites. Cultures were taken from diagnostic tap done yesterday, however I was asked to perform a therapeutic paracentesis. This was done today at the bedside after discussion of risks and benefits. 3 L of fluid was removed. The patient's vital signs were stable throughout. If the patient becomes hypotensive and or tachycardic (though as of yet he has had normal vital signs), I recommend 25% albumin replacement. I discussed the patient that it will be important for him to follow-up with GI. If he needs future paracentesis, his GI doctor primary care doctor can order these and they can be scheduled on an outpatient basis in our Endoscopy Department.
--- NOTE | 2022-10-31 13:11 | W.PM.CROSSCO ---
Subjective Subjective Principal diagnosis: Results Interval history: Patient's Blood Culture + for GPC, Vancomycin has been added to his Cefepime. Reassuring VS, afebrile, stable on RA. Await ID and sensitivities. Assessment and Plan Assessment and plan (1) Bacteremia: Problem comment: - GPC noted 10/31, on Vancomycin and Cefepime Status: Acute
--- NOTE | 2022-10-31 13:38 | W.PM.PARA ---
Paracentesis Date Date: 10/31/22 Procedure Note Procedure: Paracentesis with Ultrasound Guidance Type of paracentesis: Therapeutic Surgeon: Mayela Perry Indications: The patient is a 47-year-old male with alcoholic cirrhosis and ascites. He is currently hospitalized for abdominal pain and likely spontaneous bacterial peritonitis. I was asked to perform a therapeutic paracentesis as fluid cultures were obtained yesterday for diagnostic purposes. Labs and Cytology Sent:: No Albumin infused: No Procedure Note:: Prior to the procedure, the risks and benefits of the procedure were discussed and an informed consent was obtained. Patient identification was confirmed and TIME OUT was performed. [An ultrasound was brought onto the field and an easily accessible pocket of ascites was identified that was away from intraabdominal organs.] The patient's abdomen in the [] quadrant was prepped and draped in the usual sterile fashion. 1% Lidocaine was used to anesthetize the skin, soft tissues and peritoneum over the proposed needle insertion site. A skin incision was made with a scalpel just large enough to fit the needle. The needle with the paracentesis catheter was advanced into the abdomen and a cystic fluid was aspirated into the syringe. The needle was then withdrawn and the catheter was left in place. The catheter was then connected to the drainage tubing. 3 Liters of straw colored fluid was drained. This was discarded as the patient has already had cultures taken. Post procedure ultrasound revealed minimal residual ascitic fluid. The catheter was then removed and the skin was closed with Dermabond. Patient tolerated procedure well and there were no immediate complications. Patient's vital signs were stable throughout the procedure and no albumin was infused.
--- NOTE | 2022-10-31 14:50 | PC.NURSE ---
VSS, elevation of HOB this AM d/t oxygenation being in high 80s. Pain 5-7 throughout day- PRN oxy given w/ some relief. CIWA scores 13-19, given valium x3 per protocol. Abdomen rounded, distended, tender, small amount of emesis in AM, mild nausea, minimal appetite: paracentesis performed- 4g morphine given for procedure- 3 L out, slight pain relief post procedure. LS diminished, shallow breathing. Voided x4. Did eat most of lunch this afternoon, drank 1600 cc. PIV in left AC- redressed, infusing abx. Up to bathroom independently. On phone w/ off and on today.
[2022-10-31 16:41] LABS: Potassium* 3.7 mmol/L (3.6-5.1)
[2022-10-31] MEDS: THIAMINE 100 MG TABLET PO (23:02)
[2022-11-01] VITALS (10 sets, daily range): BP systolic 111–128; BP diastolic 81–88; PULSE 76–92; RESP 14–18; TEMP 36.8–37.2; O2SAT 93–95
[2022-11-01] MEDS: NICOTINE 2 MG GUM BUCCAL ×4 (03:40→21:24)
[2022-11-01] MEDS: MORPHINE 4 MG/ML INJ IVP ×3 (03:40→09:09)
[2022-11-01] MEDS: OMEPRAZOLE 20 MG CAPSULE DR 40 MG PO (06:29)
[2022-11-01] MEDS: SODIUM CHLORIDE 0.9 % (FLUSH) 10 ML SYRINGE 5 ML IVF ×3 (06:30→21:19)
[2022-11-01 06:41] LABS: Basophils Absolute Auto 0.08 K/uL (0.00-0.30); Basophils Percent Auto 1.4 % (0.0-3.0); Eosinophils Absolute Auto 0.17 K/uL (0.00-0.50); Eosinophils Percent Auto 3.1 % (0.0-7.0); Hemoglobin* 13.8 gm/dL (13.5-17.5); Lymphocytes Absolute Auto 1.39 K/uL (0.90-2.90); Mean Corpuscular HGB Conc 35 gm/dL (32-36); Mean Corpuscular Hemoglobin 35 pg (26-34); Mean Corpuscular Volume 103 fL (80-100); Monocytes Percent Auto 7.2 % (0.0-11.0); Neutrophils Absolute Auto 3.52 K/uL (1.7-7.0); Neutrophils Percent Auto 63.3 % (42.0-72.0); Platelet Count* 166 K/uL (140-440); Slide Review Reflex No; White Blood Count* 5.56 K/uL (4.50-11.00)
--- NOTE | 2022-11-01 06:42 | PC.NURSE ---
Pt is alert and oriented x3. Afebrile. Pt reports 7/10 pain in abdomen, pain managed with PRN medications. Pt abdomen continues to be?large and tender to palpation with renetta areas. Pt states ?My pain changed from being sharp with pressure to being more of a achy and sore feeling.??Pt denies?chest pain, SOB, N/V. Pt is tolerating a reg diet?and voiding. Pt is up ad gretel in room. Pt slept throughout most of night.??
[2022-11-01] MEDS: CEFEPIME HCL 2 GM in 0.9 % SODIUM CHLORIDE Mini-bag 100 ML IVPB ×3 (06:55→23:00)
[2022-11-01 06:56] LABS: Chloride* 106 mmol/L (96-114)
[2022-11-01 06:57] LABS: INR 1.35 (0.91-1.10); Potassium* 3.6 mmol/L (3.6-5.1); Prothrombin Time 17.4 Seconds; Sodium* 137 mmol/L (135-149)
[2022-11-01 06:59] LABS: Alkaline Phosphatase* 249 U/L (40-150); Anion Gap 0 mEq/L (7-15); Aspartate Amino Transferase* 123 U/L (12-35); Bilirubin Direct* 0.4 mg/dL (0.0-0.5); Bilirubin Total* 1.2 mg/dL (0.1-1.5); Blood Urea Nitrogen* 4 mg/dL (5-24); Carbon Dioxide* 31 mmol/L (20-32); Creatinine* 0.6 mg/dL (0.5-1.5); Estimated Glomerular Filt Rate 120 ml/min; Total Protein* 5.3 g/dL (6.0-8.3)
[2022-11-01 07:00] LABS: Alanine Aminotransferase* 42 U/L (4-50); Calcium* 7.4 mg/dL (8.4-10.6); Glucose* 105 mg/dL (60-115)
[2022-11-01 07:17] LABS: Procalcitonin* 0.16 ng/mL (<0.50)
[2022-11-01] MEDS: POTASSIUM CHLORIDE 10 MEQ CAPSULE ER 40 MEQ PO ×2 (09:07→17:56)
[2022-11-01] MEDS: ESCITALOPRAM 10 MG TABLET 20 MG PO (09:07)
[2022-11-01] MEDS: FOLIC ACID 1 MG TABLET PO (09:08)
[2022-11-01] MEDS: SPIRONOLACTONE 100 MG TABLET 50 MG PO (10:21)
[2022-11-01] MEDS: FUROSEMIDE 40 MG TABLET 80 MG PO (10:22)
[2022-11-01] MEDS: LORazepam 1 MG TABLET PO ×2 (10:25→19:37)
--- NOTE | 2022-11-01 12:15 | PM.IMPN1 ---
Progress Note: A&P Assessment and plan (1) Alcoholic cirrhosis of liver with ascites: Problem details: - patient understands objective severity of disease. Has been on naltrexone and has been to treatment twice. - has appointment scheduled with [facility] as an outpatient -CIWA has been negative to low. continue prn ativan. no active withdrawal noted -spironolactone/furosemide at a 100-40 mg ratio initiated today, 11/01/2022 -s/p 3L ascites drainage; culture/gram stain/cell counts reviewed. On Vanc/Cefepime. -daily LFTs, INR, electrolytes Status: Acute (2) Bacteremia: Problem details: - GPC noted 10/31, on Vancomycin and Cefepime Status: Acute (3) Tobacco dependence: Status: Acute (4) Acute hypokalemia: Problem details: - replace and follow - increase Spironolactone dosing to 50mg Qd 10/31: Hold aldactone resume once closer to discharge; scheduled potassium, recheck potassium, check mg, replace calcium Status: Acute (5) Abdominal pain: Problem details: - concerning for SBP - Cefepime (10/30), await fluid cultures from paracentesis Status: Acute Subjective Date Seen: 11/01/22 Interval history: Daily Progress Note - Hospital Medicine Day #: 3 CC: Alcoholic Liver; Ascites OVERNIGHT UPDATES FROM STAFF & MED, LAB, IMAGING UPDATES Afebrile Blood pressure 113/84 Pulse rate 92 Respiratory rate 16 Pulse ox 94% on room air Any to wait, this is not been done routinely in the mornings CBC is stable Mild coagulopathy with an INR 1.35 Mild metabolic alkalosis Sodium, potassium and renal function are all normal. Total bilirubin is normal, AST is down trending. On admission it was 182, now 123 ALT is normal, alk-phos down trending Abdomen pelvis CT from admission Impression: 1. No acute abnormality within the abdomen or pelvis. 2. Cirrhotic liver morphology and sequela of portal hypertension to include varices, ascites and portal colopathy. 1 blood culture from the is showing Gram-positive cocci in clusters, the other was negative. New set of blood cultures are pending. Paracentesis ascitic fluid culture is still pending. Objective: tired appearing; not jaundiced. thin legs/arms; enlarged abdomen; Vitals: see above Lungs: Clear. Cardiac: S1S2. abdomen: Spider angiomata; tense but per his report improved Disposition/Potential discharge - Likely to return to previous living situation. Today I spent 50minutes seeing the patient, reviewing Expanse and EPIC notes/diagnostics, discussing the care plan with our care time that includes social work, PT/OT, pharmacy, RT, [facility] and documenting my impressions and plan in the medical record. Exam Const: Vital Signs, click to edit/add: Vital Signs - 24 hr 10/31/22 13:00 10/31/22 15:40 10/31/22 15:40 Temperature 98.0 F 98.5 F Pulse Rate Pulse Rate [Right Pulse Oximeter] 82 81 Respiratory Rate 16 16 Blood Pressure [Ri ght Arm] 131/93 H 113/81 Pulse Oximetry 94 91 91 Oxygen Delivery Me thod Room Air Room Air Room Air 10/31/22 16:08 10/31/22 20:40 10/31/22 21:23 Temperature 98.3 F Pulse Rate 77 Pulse Rate [Right Pulse Oximeter] 82 89 Respiratory Rate 16 16 Blood Pressure [Ri ght Arm] 115/79 Pulse Oximetry 95 Oxygen Delivery Me thod Room Air 10/31/22 21:23 10/31/22 23:30 10/31/22 23:30 Temperature 98.3 F Pulse Rate 79 Pulse Rate [Right Pulse Oximeter] 80 Respiratory Rate 16 14 Blood Pressure [Ri ght Arm] 118/86 Pulse Oximetry 93 92 Oxygen Delivery Me thod Room Air Room Air 11/01/22 03:30 11/01/22 07:00 11/01/22 07:00 Temperature 98.4 F 98.3 F Pulse Rate Pulse Rate [Right Pulse Oximeter] 84 92 Respiratory Rate 16 14 14 Blood Pressure [Ri ght Arm] 126/82 120/85 Pulse Oximetry 94 95 93 Oxygen Delivery Me thod Room Air Room Air Room Air 11/01/22 08:43 11/01/22 11:00 Temperature 98.7 F Pulse Rate 76 Pulse Rate [Right Pulse Oximeter] 92 Respiratory Rate 16 Blood Pressure [Ri ght Arm] 113/84 Pulse Oximetry 94 Oxygen Delivery Me thod Room Air Labs Labs: Laboratory Results - last 24 hr 10/31/22 11/01/22 16:22 06:24 WBC 5.56 RBC 3.90 L Hgb 13.8 Hct 40.0 MCV 103 H MCH 35 H MCHC 35 RDW Coeff of Clint 13.0 Plt Count 166 Neut % (Auto) 63.3 Lymph % (Auto) 25.0 [place] % (Auto) 7.2 Eos % (Auto) 3.1 Baso % (Auto) 1.4 Neut # (Auto) 3.52 Lymph # (Auto) 1.39 [place] # (Auto) 0.40 Eos # (Auto) 0.17 Baso # (Auto) 0.08 Abs Immat Gran (auto) 0.00 Imm/Tot Granulo (auto) 0.0 INR 1.35 H Sodium 137 Potassium 3.7 3.6 Chloride 106 Carbon Dioxide 31 Anion Gap 0 L BUN 4 L Creatinine 0.6 Estimated Creat Clear 162.10 Estimated GFR 120 Glucose 105 Calcium 7.4 L Total Bilirubin 1.2 Direct Bilirubin 0.4 AST 123 H ALT 42 Alkaline Phosphatase 249 H Total Protein 5.3 L Albumin 2.0 L Procalcitonin 0.16
[2022-11-01] MEDS: OXYCODONE 5 MG TABLET PO ×3 (12:48→21:19)
--- NOTE | 2022-11-01 13:07 | PC.NURSE ---
VSS, O2 in high 80s this AM- saturations in mid 90s rest of day. Pain 5-7 throughout day, some relief w/ IV morphine this AM & 5 mg oxy this afternoon. Anxious, itching sensation- 2 mg ativan given w/ slight relief. LS diminished, shallow breaths. Abdomen distended & tender, fair appetite, ate 50% breakfast, drank 1600 cc fluids. Lasix & spirolactone given- frequent urination. Last BM yesterday, 10/31. PIV in left AC- IV abx & albumin given. Paracentesis site C/D/I. Skin slightly jaundice. Up independently, is using urinal at bedside d/t diuretic. Walked in saba x2. Will continue to follow POC. Leyda Duncan RN
[2022-11-01] MEDS: THIAMINE 100 MG TABLET PO (23:01)
[2022-11-02] VITALS (9 sets, daily range): BP systolic 121–130; BP diastolic 89–95; PULSE 65–97; RESP 16; TEMP 36.3–37.1; O2SAT 94–95
[2022-11-02] MEDS: 0.9 % SODIUM CHLORIDE 250 ml IV (01:56)
[2022-11-02] MEDS: NICOTINE 2 MG GUM BUCCAL ×3 (01:56→21:52)
[2022-11-02] MEDS: OXYCODONE 5 MG TABLET PO ×3 (01:56→21:33)
[2022-11-02] MEDS: LORazepam 1 MG TABLET PO ×2 (04:33)
[2022-11-02 06:31] LABS: Hemoglobin* 13.5 gm/dL (13.5-17.5); Mean Corpuscular HGB Conc 35 gm/dL (32-36); Mean Corpuscular Hemoglobin 35 pg (26-34); Mean Corpuscular Volume 102 fL (80-100); Platelet Count* 165 K/uL (140-440); Red Blood Count 3.81 m/uL (4.30-5.90); White Blood Count* 5.76 K/uL (4.50-11.00)
[2022-11-02 06:33] LABS: Slide Review Reflex No
[2022-11-02 06:52] LABS: HCO3 VBG 32 mmol/L (21-28); PCO2 VBG 45 mmHG (40-50); PO2 VBG 64.8 mmHG (25-47); pH VBG 7.459 (7.32-7.43)
[2022-11-02] MEDS: CEFEPIME HCL 2 GM in 0.9 % SODIUM CHLORIDE Mini-bag 100 ML IVPB ×3 (06:52→23:00)
[2022-11-02] MEDS: OMEPRAZOLE 20 MG CAPSULE DR 40 MG PO (06:53)
--- NOTE | 2022-11-02 07:01 | PC.NURSE ---
indep. Pleasant and cooperative. c/o abd pain @ paracentesis sites, bruising noted, prn Oxy given. Pt called throughout the night requesting Ativan, fiction and nonfiction prose writer educated pt on CIWA protocol, pt expressed anxiety, auditory hallucinations, and inability to rest/relax, Ativan given per protocol. VS WNL.
[2022-11-02 07:07] LABS: INR 1.43 (0.91-1.10); Prothrombin Time 18.2 Seconds
[2022-11-02 07:15] LABS: Albumin* 2.4 g/dL (3.3-5.0); Chloride* 104 mmol/L (96-114)
[2022-11-02 07:16] LABS: Potassium* 3.7 mmol/L (3.6-5.1); Sodium* 136 mmol/L (135-149)
[2022-11-02 07:18] LABS: Creatinine* 0.5 mg/dL (0.5-1.5); Est. Creatinine Clearance* 194.53; Estimated Glomerular Filt Rate 127 ml/min
[2022-11-02 07:19] LABS: Alanine Aminotransferase* 35 U/L (4-50); Alkaline Phosphatase* 206 U/L (40-150); Anion Gap 0 mEq/L (7-15); Aspartate Amino Transferase* 94 U/L (12-35); Bilirubin Total* 1.5 mg/dL (0.1-1.5); Blood Urea Nitrogen* 5 mg/dL (5-24); Calcium* 8.1 mg/dL (8.4-10.6); Carbon Dioxide* 32 mmol/L (20-32); Glucose* 98 mg/dL (60-115); Total Protein* 5.5 g/dL (6.0-8.3)
[2022-11-02 07:35] LABS: Procalcitonin* 0.16 ng/mL (<0.50)
[2022-11-02] MEDS: POTASSIUM CHLORIDE 10 MEQ CAPSULE ER 40 MEQ PO ×2 (08:42→18:06)
[2022-11-02] MEDS: ESCITALOPRAM 10 MG TABLET 20 MG PO (08:43)
[2022-11-02] MEDS: FUROSEMIDE 40 MG TABLET 80 MG PO (08:43)
[2022-11-02] MEDS: SODIUM CHLORIDE 0.9 % (FLUSH) 10 ML SYRINGE 5 ML IVF ×2 (08:43→21:33)
[2022-11-02] MEDS: FOLIC ACID 1 MG TABLET PO (08:43)
--- NOTE | 2022-11-02 14:16 | P.IMPN_ITS ---
Progress Note: A&P Assessment and plan (1) Alcoholic cirrhosis of liver with ascites: Problem details: - patient understands objective severity of disease. Has been on naltrexone and has been to treatment twice. - has appointment scheduled with [facility] as an outpatient, and this will need to be rescheduled -CIWA has been negative to low. continue prn ativan. no active withdrawal noted -spironolactone/furosemide at a 100-40 mg ratio initiated today, 11/01/2022 -s/p 3L ascites drainage; culture/gram stain/cell counts reviewed. On Vanc/Cefepime. Stop vancomycin today. Continue with cefepime. Await cultures. -daily LFTs, INR, electrolytes Status: Acute (2) Bacteremia: Problem details: - GPC noted 10/31, on Vancomycin and Cefepime. Stop vancomycin today. Gram- positive cocci in clusters, coagulase-negative, identified as Staph haemolyticus, a contaminant. Status: Acute (3) Tobacco dependence: Status: Acute (4) Acute hypokalemia: Problem details: - replace and follow - increase Spironolactone dosing to 50mg Qd 10/31: Hold aldactone resume once closer to discharge; scheduled potassium, recheck potassium, check mg, replace calcium Status: Acute (5) Abdominal pain: Problem details: - concerning for SBP - Cefepime (10/30), await fluid cultures from paracentesis, negative to date Status: Acute Plan 1. Reviewed impression with patient 2. Answered his questions 3. Plan as specified above 4. Patient agreeable 5. Increase activity as tolerated Time Spent With Patient Total time spent: 40 minute Subjective Time Seen by Provider: 09:00 Date Seen: 11/02/22 Interval history: Daily Progress Note - Hospital Medicine Day #: 4 CC: Alcoholic Liver; Ascites He tells me he is much closer to baseline. Denies nausea, vomiting, abdominal pain, except at site of paracentesis the right side of the abdomen. Denies fevers, rigors, diaphoresis. Denies tremor, anxiety, agitation. Denies chest pain, syncope, palpitations, cough, dyspnea at rest. Tolerating increased activities. Exam Narrative: Exam Narrative: Examined patient in hospital room. Vision and hearing are grossly normal. No acute distress, alert and oriented x4. Friendly, cooperative, mood and affect congruent. Lungs clear to auscultation. Heart tones with regular rhythm, normal S1-S2, without murmur, gallop, rub. Abdomen distended, active bowel sounds. Ecchymosis at site of paracentesis right periumbilical area. No induration, fluctuance, warmth, or discharge. Lower extremities with mild edema. Meld score calculated at 12. One set of blood cultures on date of admission grew out Staphylococcus haemolyticus, coagulase negative Staph. Other set of blood cultures on the same date of admission is still growing nothing. All subsequent cultures are still growing nothing. Most likely the 1 set of cultures is a contaminant. Const: Vital Signs, click to edit/add: Vital Signs - 24 hr 11/01/22 15:38 11/01/22 15:39 11/01/22 16:56 Temperature 98.7 F Pulse Rate 92 Pulse Rate [Right Pulse Oximeter] 91 Respiratory Rate 18 Blood Pressure [Ri ght Arm] 111/81 Pulse Oximetry 93 93 Oxygen Delivery Md thod Room Air Room Air 11/01/22 19:30 11/01/22 22:51 11/01/22 23:00 Temperature 98.6 F Pulse Rate 79 Pulse Rate [Right Pulse Oximeter] 88 76 Respiratory Rate 18 18 Blood Pressure [Ri ght Arm] 118/87 Pulse Oximetry 93 Oxygen Delivery Md thod Room Air 11/01/22 23:00 11/01/22 23:00 11/02/22 04:00 Temperature 99 F 98.5 F Pulse Rate Pulse Rate [Right Pulse Oximeter] 76 70 Respiratory Rate 18 18 16 Blood Pressure [Ri ght Arm] 128/88 121/89 Pulse Oximetry 95 95 94 Oxygen Delivery Md thod Room Air Room Air Room Air 11/02/22 07:00 11/02/22 07:00 11/02/22 07:00 Temperature Pulse Rate 79 Pulse Rate [Right Pulse Oximeter] 86 Respiratory Rate 16 16 Blood Pressure [Ri ght Arm] Pulse Oximetry 94 Oxygen Delivery Md thod Room Air 11/02/22 07:00 11/02/22 11:00 Temperature 97.4 F L Pulse Rate Pulse Rate [Right Pulse Oximeter] 86 97 Respiratory Rate 16 16 Blood Pressure [Ri ght Arm] 122/92 H Pulse Oximetry 94 94 Oxygen Delivery Md thod Room Air Room Air Documenting provider has reviewed patient's vital signs: yes Labs Labs: Laboratory Results - last 24 hr 11/02/22 06:15 WBC 5.76 RBC 3.81 L Hgb 13.5 Hct 39.0 MCV 102 H MCH 35 H MCHC 35 Plt Count 165 INR 1.43 H VBG pH 7.459 H VBG pCO2 45 VBG pO2 64.8 H VBG HCO3 32 H Sodium 136 Potassium 3.7 Chloride 104 Carbon Dioxide 32 Anion Gap 0 L BUN 5 Creatinine 0.5 Estimated Creat Clear 194.53 Estimated GFR 127 Glucose 98 Calcium 8.1 L Total Bilirubin 1.5 AST 94 H ALT 35 Alkaline Phosphatase 206 H C-Reactive Protein 2.0 H Total Protein 5.5 L Albumin 2.4 L Procalcitonin 0.16
--- NOTE | 2022-11-02 19:10 | PC.NURSE ---
End of shift: Patient is pleasant and cooperative, and alert and oriented x4. Complains of pain around his paracentesis sites, bruising noted, prn Oxy given. Pt on CIWA protocol scored less <9, VS WNL, patient slept during the shift and only sat up for Vitals, assessments, to eat and go to the bathroom. Pattern Changer encouraged patient to ambulate in hallway and room but wanted to keep the room dark and quite throughout the day. Possible discharge tomorrow, awaiting results of cultures.
[2022-11-03] MEDS: OXYCODONE 5 MG TABLET PO ×2 (02:26→06:40)
[2022-11-03] MEDS: NICOTINE 2 MG GUM BUCCAL ×3 (02:27→06:40)
[2022-11-03 02:30] VITALS: BP 137/103; PULSE 70; RESP 18; TEMP 36.6; O2SAT 93
[2022-11-03] MEDS: OMEPRAZOLE 20 MG CAPSULE DR 40 MG PO (06:40)
[2022-11-03] MEDS: CEFEPIME HCL 2 GM in 0.9 % SODIUM CHLORIDE Mini-bag 100 ML IVPB (06:40)
[2022-11-03 06:41] LABS: Sodium* 138 mmol/L (135-149)
[2022-11-03 06:45] LABS: Magnesium* 1.8 mg/dL (1.5-2.6); Phosphorus* 2.6 mg/dL (2.5-4.5)
[2022-11-03 06:46] LABS: INR 1.26 (0.91-1.10); Prothrombin Time 16.5 Seconds
[2022-11-03 06:48] LABS: C Reactive Protein* 1.9 mg/dL (0.5-1.0)
--- NOTE | 2022-11-03 06:48 | PC.NURSE ---
: indep. VSS. c/o abd pain at paracentesis site, prn oxy given. ?
[2022-11-03 07:00] VITALS: BP 134/96; PULSE 85; PULSE 97; RESP 16; TEMP 36.6; O2SAT 97
[2022-11-03 07:00] LABS: NT Pro B Type NatriureticPept* 284 pg/mL
[2022-11-03] MEDS: POTASSIUM CHLORIDE 10 MEQ CAPSULE ER 40 MEQ PO (07:45)
[2022-11-03] MEDS: FUROSEMIDE 40 MG TABLET 80 MG PO (07:45)
[2022-11-03] MEDS: FOLIC ACID 1 MG TABLET PO (08:41)
[2022-11-03] MEDS: ESCITALOPRAM 10 MG TABLET 20 MG PO (08:41)
--- NOTE | 2022-11-03 10:30 | PC.NURSE ---
End of shift: Patient is pleasant and cooperative, and alert and oriented x4. Complains of pain around his paracentesis sites, bruising noted. Discharged today at 1015. Patient ambulated to spouse waiting in parking lot. IV removed intact. Belongings sheet signed. Patient signed discharge instructions and verbalized understanding of the importance of abstaining from drinking alcohol.
[2022-11-03 10:46] LABS: Lipase* 9 U/L (23-300)
--- NOTE | 2022-11-03 14:40 | PM.DS1 ---
DS: Providers Provider Time Seen by Provider: 08:00 Date Seen: 11/03/22 Date of admission: 10/30/22 22:46 Primary care physician: Danni Brower MD Admitting Clinician: Maddy Leggett MD Consults: 10/31/22 09:13 Consult to Physician [CONS] Routine Comment: therapeutic paracentesis if possible for ascites Consulting Provider: Mayela Perry Has provider been notified: Yes Attending Physician on discharge: Waylon Lin MD Date of Discharge: 11/03/22 DS: Diagnosis Discharge Diagnosis (1) Abdominal pain: Status: Acute Problem details: - concerning for SBP - Cefepime (10/30), await fluid cultures from paracentesis, negative to date (2) Alcoholic cirrhosis of liver with ascites: Status: Acute Problem details: - patient understands objective severity of disease. Has been on naltrexone and has been to treatment twice. - has appointment scheduled with [facility] as an outpatient, and this will need to be rescheduled -CIWA has been negative to low. continue prn ativan. no active withdrawal noted -spironolactone/furosemide at a 100-40 mg ratio initiated today, 11/01/2022 -s/p 3L ascites drainage; culture/gram stain/cell counts reviewed. On Vanc/Cefepime. Stop vancomycin today. Continue with cefepime. Await cultures. -daily LFTs, INR, electrolytes (3) Acute hypokalemia: Status: Acute Problem details: - replace and follow - increase Spironolactone dosing to 50mg Qd 10/31: Hold aldactone resume once closer to discharge; scheduled potassium, recheck potassium, check mg, replace calcium (4) Tobacco dependence: Status: Acute (5) Bacteremia: Status: Acute Problem details: - GPC noted 10/31, on Vancomycin and Cefepime. Stop vancomycin today. Gram-positive cocci in clusters, coagulase-negative, identified as Staph haemolyticus, a contaminant. (6) Alcohol dependence: Status: Acute DS: Summary Hospital Course Hospital Course: History of present illness: Roderick Granados is a 47 year old male who presented to the emergency room for acute onset of abdominal pain that started this afternoon. No inciting incident, no new foods. Has never had pain like this before. Associated symptoms include nausea and vomiting. No hematemesis. No diarrhea. Known history of alcoholic liver disease, first noted to have ascites while in the [facility] last week; at that time had 2.5 L taken off via paracentesis. Negative cultures, not admitted at that time. He did not have pain during ER visit last week. ER Course and Findings: - potassium 2.6, supplementation initiated - CT scan of abdomen reveals hepatic steatosis, cirrhosis, + varices, ascites - elevated LFTs, lactate 3.3 - bedside paracentesis performed by ER physician, empiric Cefepime initiated given symptoms and risk factors Patient's medical history updated below. PCP is Dr. Sim at [facility]. He also has a first appointment scheduled with GI to followup on his liver disease. No history of seizures or severe alcohol withdrawal symptoms. Last drink earlier today. Patient had minor alcohol withdrawal symptoms with diaphoresis and tremors and nausea. No major sequelae in consequence of these withdrawals. Continued on cefepime until ascites fluid cultures were negative for 72 hours and he had normal white blood cell count and no fevers or other subjective changes.. One set of 4 blood cultures obtained grew out Gram-positive cocci in clusters, coagulase-negative, identified as Staph haemolyticus. Determined to be a contaminant. Had been on vancomycin empirically until such time as we discerned that was a contaminant at which time we stop the vancomycin the day prior to discharge from the hospitals. We adjusted his treatment regimen for the ascites. At time of discharge he is on spironolactone 100 mg daily and furosemide 40 mg once daily. Indicated to him that he will need close follow-up and monitoring of this treatment to make certain we are supporting him and not hurting him. Status at Discharge Overall status at discharge: patient is progressing back to baseline Time Spent with Patient Time attestation: Total time spent providing and/or coordinating discharge services: Time spent: Greater than 30 minutes Exam Narrative: Exam Narrative: Examined patient in hospital room. Vision and hearing are grossly normal. No acute distress, alert and oriented x4. Friendly, cooperative, mood and affect congruent. Lungs clear to auscultation. Heart tones with regular rhythm, normal S1-S2, without murmur, gallop, rub. Abdomen distended, active bowel sounds. Ecchymosis at site of paracentesis right periumbilical area. No induration, fluctuance, warmth, or discharge. Lower extremities with mild edema. Meld score calculated at 12. One set of blood cultures on date of admission grew out Staphylococcus haemolyticus, coagulase negative Staph. Other set of blood cultures on the same date of admission is still growing nothing. All subsequent cultures are still growing nothing. Most likely the 1 set of cultures is a contaminant. Const: Vital Signs, click to edit/add: Vital Signs - 24 hr 11/02/22 15:00 11/02/22 15:00 11/02/22 15:00 Temperature 97.6 F Pulse Rate Pulse Rate [Right Pulse Oximeter] 83 83 Respiratory Rate 16 16 16 Blood Pressure [Ri ght Arm] 130/95 H Pulse Oximetry 95 95 Oxygen Delivery Me thod Room Air Room Air 11/02/22 15:00 11/02/22 15:41 11/02/22 20:00 Temperature 97.6 F 97.6 F Pulse Rate 82 Pulse Rate [Right Pulse Oximeter] 83 67 Respiratory Rate 16 16 Blood Pressure [Ri ght Arm] 130/95 H 121/92 H Pulse Oximetry 95 94 Oxygen Delivery Me thod Room Air Room Air 11/02/22 22:27 11/02/22 22:27 11/02/22 23:00 Temperature 98.7 F Pulse Rate Pulse Rate [Right Pulse Oximeter] 65 Respiratory Rate 16 16 16 Blood Pressure [Ri ght Arm] 125/95 H Pulse Oximetry 94 94 Oxygen Delivery Me thod Room Air Room Air 11/02/22 23:00 11/03/22 02:30 11/03/22 07:00 Temperature 98 F Pulse Rate 65 85 Pulse Rate [Right Pulse Oximeter] 70 Respiratory Rate 18 Blood Pressure [Ri ght Arm] 137/103 H Pulse Oximetry 93 Oxygen Delivery Me thod Room Air 11/03/22 07:00 11/03/22 07:00 11/03/22 07:00 Temperature 98 F Pulse Rate Pulse Rate [Right Pulse Oximeter] 97 97 Respiratory Rate 16 16 16 Blood Pressure [Ri ght Arm] 134/96 H Pulse Oximetry 97 97 Oxygen Delivery Me thod Room Air Room Air Documenting provider has reviewed patient's vital signs: yes DS: Data Data Completed and Pending Labs on day of discharge: Labs from last 24 hours 11/03/22 11/02/22 06:13 06:15 INR 1.26 H Sodium 138 Phosphorus 2.6 Magnesium 1.8 C-Reactive Protein 1.9 H NT-Pro-B Natriuret Pep 284 Lipase 9 L Preliminary micro results at discharge 10/31/22 14:20 Blood Culture - Preliminary Blood NO GROWTH AFTER 72 HOURS 10/31/22 14:15 Blood Culture - Preliminary Blood NO GROWTH AFTER 72 HOURS 10/30/22 22:00 Body Fluid Culture - Preliminary Ascites Fluid NO GROWTH AFTER 96 HOURS 10/30/22 20:16 Blood Culture - Preliminary Blood NO GROWTH AFTER [address] scan abdomen and pelvis: Attestation: I have reviewed the pertinent imaging results. Radiologist's impression: Impression: 1. No acute abnormality within the abdomen or pelvis. 2. Cirrhotic liver morphology and sequela of portal hypertension to include varices, ascites and portal colopathy. Discharge Plan Discharge Disposition: Home, Self-Care Date of Admission: 10/30/22 22:46 Attending Provider on Discharge: Waylon Lin Consulting Providers: Mayela Perry Primary Care Provider: Danni Brower Condition: Improved Anticipated Discharge Date/Time: 11/03/22 10:30 Discharge Medications: New folic acid 1 mg Tablet 1 mg PO DAILY 30 Days Qty: 30 0RF furosemide 40 mg tablet 40 mg PO QAM Qty: 30 2RF spironolactone 100 mg tablet 100 mg PO QAM Qty: 30 2RF ondansetron 4 mg film 4 mg PO Q6H PRN (Reason: nausea and vomiting) Qty: 20 1RF oxycodone 5 mg tablet 5 mg PO BID PRN (Reason: pain) Qty: 5 0RF Continued omeprazole 20 mg capsule,delayed release(DR/EC) 20 mg PO DAILY losartan 25 mg tablet 25 mg PO DAILY escitalopram oxalate 20 mg tablet 20 mg PO DAILY Discontinued spironolactone 25 mg tablet 25 mg PO DAILY Discharge Orders: Discharge Order (Routine); Ordered 11/03/22 Ordered By: Waylon Lin Patient Education: Spironolactone (By mouth), Furosemide (By mouth), Folic Acid (By mouth), Oxycodone, Rapid Release (By mouth), Ondansetron (By mouth), Liver Transplant (DC), Ascites (DC), Low-Sodium Diet (DC), Alcohol Dependence (DC) Additional Instructions: 1. follow-up with primary care physician in 2-5 days with pre-visit basic metabolic panel; 2. reschedule appointment with [facility]; 3. 100% abstinence from any alcohol exposure; 4. treatment and management of alcohol dependence Activity Level: Activity as Tolerated Discharge Diet: 2 gm Sodium Follow Up Appointments: Melisa Delgado CNP [Referring] - 11/13/22 10:50 am ([facility] for follow-up.) Danni Brower MD [Primary Care Provider] - None Forms: [facility] Info Instructions
== END 2022-11-03 10:15 | disposition home or self-care (01) | DRG 433 ==
LOC: ED 21:42 → MEDSURG 22:45
PROVIDERS: Family Medicine; Hospitalist; Internal Medicine; Admitting Provider Family Medicine; Emergency Provider Family Medicine; PCP Family Medicine; Visit Provider Family Medicine
DX: K70.31 Alcoholic cirrhosis of liver with ascites (principal); F10.239 Alcohol dependence with withdrawal, unspecified; I85.10 Secondary esophageal varices without bleeding; K76.6 Portal hypertension; K70.0 Alcoholic fatty liver; E87.6 Hypokalemia; F43.10 Post-traumatic stress disorder, unspecified; F41.0 Panic disorder [episodic paroxysmal anxiety]; F32.A Depression, unspecified; K21.9 Gastro-esophageal reflux disease without esophagitis; F17.210 Nicotine dependence, cigarettes, uncomplicated
CPT/HCPCS: 36415; 49083; 74177; 76705; 80048; 80053; 80076; 82150; 82330; 82803; 83605; 83690; 83735; 83880; 84100; 84132; 84145; 84295; 84484; 85025; 85027; 85610; 86140; 87040; 87070; 87186; 87205; 89051; 93005; 99285; A9270; J0610; J0692; J1170; J2270; J2405; J3370; J3480; J7030; J7050; J7120; P9047; Q9967

== ENCOUNTER 2022-11-16 06:11 | Emergency (ER) | payer OTHER, SELFPAY ==
[2022-11-16 06:19] VITALS: BP 118/84; PULSE 84; RESP 16; TEMP 36.9; O2SAT 98; BMI 26.5
--- NOTE | 2022-11-16 06:35 | ED.GENADULT ---
HPI - General Adult General Chief complaint: Abdominal Pain Stated complaint: abdominal pains Time Seen by Provider: 11/16/22 06:17 History of Present Illness HPI narrative: 0300 abd started, sharp with nausea. admitted 2 weeks ago for etoh ascities, tapped. states been etoh free for 1.5 weeks. states he thinks he may have pancreatitis again. 47-year-old man returning to the emergency department after waking at 3:00 a.m. with sharp epigastric pain. Is worried that he might have pancreatitis again and/or an infection given that had been tapped with concern of SBP hospitalized the end of this last month. Review of records shows negative cultures. Has not had any fever. Has been nauseated. Zofran has been very helpful. Did spend a good portion of yesterday with 7-year-old son. Had pizza, Syriac fries, gyro. Has been maintaining his sobriety from alcohol now since discharge over the last week and half. Related Data Home Medications Medication Instructions Recorded Confirmed omeprazole 20 mg capsule,delayed 20 mg PO DAILY 10/15/21 10/30/22 release escitalopram oxalate 20 mg tablet 20 mg PO DAILY 10/30/22 10/30/22 losartan 25 mg tablet 25 mg PO DAILY 10/30/22 10/30/22 Previous Rx's Medication Instructions Recorded folic acid 1 mg tablet 1 mg PO DAILY 30 days #30 tabs 11/03/22 furosemide 40 mg tablet 40 mg PO QAM #30 tabs 11/03/22 ondansetron 4 mg oral soluble film 4 mg PO Q6H PRN nausea and 11/03/22 vomiting #20 ea oxycodone 5 mg tablet 5 mg PO BID PRN pain #5 tabs 11/03/22 spironolactone 100 mg tablet 100 mg PO QAM #30 tabs 11/03/22 Allergies Allergy/AdvReac Type Severity Reaction Status Date / Time Penicillins Allergy Unknown Verified 10/30/22 19:57 Review of Systems Status of ROS: Reports: 6 or more systems reviewed and unremarkable except as noted in History and below [facility] Medical History PTSD (post-traumatic stress disorder) ?F43.10 - Post-traumatic stress disorder, unspecified (ICD-10) Panic disorder ?F41.0 - Panic disorder [episodic paroxysmal anxiety] (ICD-10) Alcohol dependence ?F10.20 - Alcohol dependence, uncomplicated (ICD-10) Gastritis ?K29.70 - Gastritis, unspecified, without bleeding (ICD-10) Depression ?F32.A - Depression, unspecified (ICD-10) GERD (gastroesophageal reflux disease) ?K21.9 - Gastro-esophageal reflux disease without esophagitis (ICD-10) Pancreatitis ?K85.90 - Acute pancreatitis without necrosis or infection, unspecified (ICD-10) Surgical History S/P right knee surgery ?Z98.890 - Other specified postprocedural states (ICD-10) Social History Narrative: Lives with Anna (would be medical decision maker if needed) and 6yo son, daughter of SIDS in 2019. Social nicotine use, intermittently has daily ETOH use. In AA with good support from and friends. Full Code. What is your current living situation?: I presently have a place to live Problems where you live: no known problems Problems where you live details: no known problems In the past 12 months, utilities in danger of being shut off: no In the past 12 mos, have been you worried that your food would run out before you had money to buy more?: never true In the past 12 mos, the food you bought just didn't last and you didn't have money to buy more?: never true Smoking Status: Current some day smoker What tobacco products do you use: cigarettes Smoking packs per day: 0.5 Smoking cigarettes per day: 10.0 Do you use any of these nicotine containing products: None Second hand tobacco smoke exposure: Yes How often do you have a drink containing alcohol: 2-3 times a week Alcohol type: beer How many standard drinks containing alcohol do you have on a typical day: 3 or 4 How often do you have six or more drinks on one occasion: Weekly AUDIT-C Alcohol total score: 7 Non-prescribed substance use: denies use Caffeine: No How often does anyone, including family, friends and others, physically hurt you: never How often does anyone, including family, friends and others, insult or talk down to you: never How often does anyone, including family, friends and others, threaten you with harm: never How often does anyone, including family, friends and others, scream or curse at you: never service: Yes Exam Narrative: Exam Narrative: Pleasant. NAD. Seems uncomfortable. Lips look a little dry. He is breathing easily. Lungs clear. Skin tarik, warm and dry. Heart in regular rate and rhythm. Abdomen with normoactive bowel sounds is soft without peritoneal signs. Moderately tender in the epigastrium. Extremities well perfused without edema. Const: Vital Signs, click to edit/add: Vital Signs - 24 hr 11/16/22 06:19 Temperature 98.5 F Pulse Rate [Left P ulse Oximeter] 84 Respiratory Rate 16 Blood Pressure [Ri ght Upper Arm] 118/84 Pulse Oximetry 98 Oxygen Delivery Me thod Room Air Documenting provider has reviewed patient's vital signs: yes Course Vital Signs Vital signs: Initial Vital Signs Temperature 98.5 F 11/16/22 06:19 Temperature Source Temporal Artery Scan 11/16/22 06:19 Pulse Rate 84 11/16/22 06:19 Respiratory Rate 16 11/16/22 06:19 Blood Pressure 118/84 11/16/22 06:19 Blood Pressure Mean 95 11/16/22 06:19 Blood Pressure Position Sitting 11/16/22 06:19 Pulse Oximetry 98 11/16/22 06:19 Oxygen Delivery Method Room Air 11/16/22 06:19 Vital Signs Temperature 98.5 F 11/16/22 06:19 Pulse Rate 84 11/16/22 06:19 Respiratory Rate 16 11/16/22 06:19 Blood Pressure 118/84 11/16/22 06:19 Pulse Oximetry 98 11/16/22 06:19 Oxygen Delivery Method Room Air 11/16/22 06:19 Temperature 98.5 F 11/16/22 06:19 Pulse Rate 84 11/16/22 06:19 Respiratory Rate 16 11/16/22 06:19 Blood Pressure 118/84 11/16/22 06:19 Pulse Oximetry 98 11/16/22 06:19 Oxygen Delivery Method Room Air 11/16/22 06:19 Medical Decision Making MDM Narrative Medical decision making narrative: Given recent event should look for infection, pancreatitis, cholecystitis. May simply be some indigestion. IV fluids initiated. Given a dose of Dilaudid and Zofran. Potassium little bit low at 3. He was lower inpatient I believe a 2.6 or so. Normal CBC. Transaminases are consistent with prior elevation. Normal lipase. Overall improved. Seems more relaxed. I think he just pushed his diet a little too hard/too quickly. Pending appointment with [facility]. See patient discharge plan Lab Data Lab results reviewed: Yes I reviewed the patient's lab results Labs: Lab Results 11/16/22 Range/Units 07:06 WBC 7.83 (4.50-11.00) K/uL RBC 4.80 (4.30-5.90) m/uL Hgb 16.5 (13.5-17.5) gm/dL Hct 46.3 (37.0-53.0) % MCV 97 (80-100) fL MCH 34 (26-34) pg MCHC 36 (32-36) gm/dL RDW Coeff of Clint 12.4 (11.5-15.5) % Plt Count 239 (140-440) K/uL Neut % (Auto) 70.2 (42.0-72.0) % Lymph % (Auto) 19.9 L (20-44) % Routt % (Auto) 6.3 (0.0-11.0) % Eos % (Auto) 2.0 (0.0-7.0) % Baso % (Auto) 0.8 (0.0-3.0) % Neut # (Auto) 5.50 (1.7-7.0) K/uL Lymph # (Auto) 1.60 (0.90-2.90) K/uL [place] # (Auto) 0.50 (0.00-0.90) K/UL Eos # (Auto) 0.16 (0.00-0.50) K/uL Baso # (Auto) 0.06 (0.00-0.30) K/uL Abs Immat Gran (auto) 0.06 (0.00-0.30) K/uL Imm/Tot Granulo (auto) 0.8 % Sodium 135 (135-149) mmol/L Potassium 3.0 L (3.6-5.1) mmol/L Chloride 96 (96-114) mmol/L Carbon Dioxide 30 (20-32) mmol/L Anion Gap 9 (7-15) mEq/L BUN 8 (5-24) mg/dL Creatinine 0.9 (0.5-1.5) mg/dL Estimated Creat Clear 108.07 Estimated GFR 106 ml/min Glucose 120 H (60-115) mg/dL Lactate 2.3 H (0.5-1.9) mmol/L Calcium 8.8 (8.4-10.6) mg/dL Total Bilirubin 0.7 (0.1-1.5) mg/dL Direct Bilirubin 0.3 (0.0-0.5) mg/dL AST 126 H (12-35) U/L ALT 49 (4-50) U/L Alkaline Phosphatase 257 H (40-150) U/L C-Reactive Protein < 0.5 L (0.5-1.0) mg/dL Total Protein 7.3 (6.0-8.3) g/dL Albumin 3.3 (3.3-5.0) g/dL Lipase 130 (23-300) U/L Ethyl Alcohol < 0.01 L (0.01-0.03) % Discharge Plan Discharge Clinical Impression: Acute epigastric pain Patient Disposition: Home, Self-Care Condition: Improved Additional Instructions: Continue to focus on hydration. I think you pushed it too fast with your diet yesterday. Slow advance of diet yet over the next couple of days. Soup broths, rice, toast, crackers, fruits. Return for recurrence of persistent pain, repeated vomiting, fever. Follow-up with [facility] as scheduled. Percocet from [facility]. Best wishes on your continued sobriety. Prescriptions: No Action omeprazole 20 mg capsule,delayed release(DR/EC) 20 mg PO DAILY losartan 25 mg tablet 25 mg PO DAILY escitalopram oxalate 20 mg tablet 20 mg PO DAILY folic acid 1 mg Tablet 1 mg PO DAILY 30 Days Qty: 30 0RF furosemide 40 mg tablet 40 mg PO QAM Qty: 30 2RF spironolactone 100 mg tablet 100 mg PO QAM Qty: 30 2RF ondansetron 4 mg film 4 mg PO Q6H PRN (Reason: nausea and vomiting) Qty: 20 1RF oxycodone 5 mg tablet 5 mg PO BID PRN (Reason: pain) Qty: 5 0RF Follow Up/Referrals: Danni Sim MD [Primary Care Provider] - Stand Alone Forms: [facility] Info Instructions
[2022-11-16] MEDS: ONDANSETRON 2 MG/ML inj 4 MG IVP (07:05)
[2022-11-16] MEDS: 0.9 % SODIUM CHLORIDE 1000 ml 1,000 ML 2000 ML IV (07:05)
[2022-11-16] MEDS: HYDROmorphone 0.5 mg/0.5 ml inj IVP (07:13)
[2022-11-16 07:14] LABS: Lactate* 2.3 mmol/L (0.5-1.9)
[2022-11-16 07:30] LABS: Basophils Absolute Auto 0.06 K/uL (0.00-0.30); Basophils Percent Auto 0.8 % (0.0-3.0); Eosinophils Absolute Auto 0.16 K/uL (0.00-0.50); Hematocrit 46.3 % (37.0-53.0); Hemoglobin* 16.5 gm/dL (13.5-17.5); Immature Granulocytes Abs Auto 0.06 K/uL (0.00-0.30); Immature Granulocytes Pct Auto 0.8 %; Lymphocytes Percent Auto 19.9 % (20-44); Mean Corpuscular HGB Conc 36 gm/dL (32-36); Mean Corpuscular Hemoglobin 34 pg (26-34); Mean Corpuscular Volume 97 fL (80-100); Monocytes Percent Auto 6.3 % (0.0-11.0); Neutrophils Percent Auto 70.2 % (42.0-72.0); Platelet Count* 239 K/uL (140-440); RDW Coefficient of Variation % 12.4 % (11.5-15.5); White Blood Count* 7.83 K/uL (4.50-11.00)
[2022-11-16 07:34] LABS: Slide Review Reflex No
[2022-11-16 07:45] LABS: Chloride* 96 mmol/L (96-114); Sodium* 135 mmol/L (135-149)
[2022-11-16 07:46] LABS: Albumin* 3.3 g/dL (3.3-5.0)
[2022-11-16 07:48] LABS: Creatinine* 0.9 mg/dL (0.5-1.5); Est. Creatinine Clearance* 108.07; Estimated Glomerular Filt Rate 106 ml/min
[2022-11-16 07:49] LABS: Alkaline Phosphatase* 257 U/L (40-150); Anion Gap 9 mEq/L (7-15); Aspartate Amino Transferase* 126 U/L (12-35); Bilirubin Direct* 0.3 mg/dL (0.0-0.5); Bilirubin Total* 0.7 mg/dL (0.1-1.5); Blood Urea Nitrogen* 8 mg/dL (5-24); Calcium* 8.8 mg/dL (8.4-10.6); Carbon Dioxide* 30 mmol/L (20-32); Glucose* 120 mg/dL (60-115); Total Protein* 7.3 g/dL (6.0-8.3)
[2022-11-16 07:50] LABS: Alanine Aminotransferase* 49 U/L (4-50); Lipase* 130 U/L (23-300)
[2022-11-16 07:52] LABS: C Reactive Protein* < 0.5 mg/dL (0.5-1.0); Ethanol* < 0.01 % (0.01-0.03)
== END 2022-11-16 08:47 | disposition home or self-care (01) ==
PROVIDERS: Emergency Provider Family Medicine; PCP Family Medicine
DX: R10.13 Epigastric pain (principal)
CPT/HCPCS: 36415; 80048; 80076; 82077; 83605; 83690; 85025; 86140; 96374; 96375; 99283; 99284; J1170; J2405; J7030

== ENCOUNTER 2022-11-17 17:02 | Observation (INO) | payer OTHER, SELFPAY ==
[2022-11-17] VITALS (15 sets, daily range): BP systolic 119–126; BP diastolic 83–87; PULSE 69–92; RESP 18; TEMP 36.5–36.8; O2SAT 93–97; BMI 28.6
--- NOTE | 2022-11-17 19:54 | ED_ITS ---
HPI - Abdominal Pain General Time Seen by Provider: 19:54 Date Seen: 11/17/22 Chief Complaint: Abdominal Pain Stated Complaint: Abdominal pain, nausea Time Seen by Provider: 11/17/22 19:53 Source: patient, RN notes reviewed and old records reviewed Mode of arrival: ambulatory Limitations: no limitations History of Present Illness HPI narrative: This 47-year-old male is a known patient with alcoholic liver cirrhosis coming in with abdominal pain, ongoing nausea vomiting. He was hospitalized in had a paracentesis at the end of October. There is a question of spontaneous bacterial peritonitis which I believe cultures came back negative. He was in on the , just yesterday. Labs were reassuring outside of some mild hypokalemia. He states he is just having upper abdominal pain. No fevers. He has not really been able to eat, did take in some broth and small sips of water today but is feeling nauseated and has had some dry heaves. Absolutely no fevers. He has been alcohol free for over a week now. He has went through treatment a couple of times. He is a patient who had significant traumatic life event where he lost his daughter while she was sleeping on his chest. He awoke and she had . This has been largely the source alcoholic issues for him. He has been going to , does understand and identify that he is killing himself and needs to be here for his 7-year-old son. Related Data Home Medications Medication Instructions Recorded Confirmed omeprazole 20 mg capsule,delayed 20 mg PO DAILY 10/15/21 10/30/22 release escitalopram oxalate 20 mg tablet 20 mg PO DAILY 10/30/22 10/30/22 losartan 25 mg tablet 25 mg PO DAILY 10/30/22 10/30/22 Previous Rx's Medication Instructions Recorded folic acid 1 mg tablet 1 mg PO DAILY 30 days #30 tabs 11/03/22 furosemide 40 mg tablet 40 mg PO QAM #30 tabs 11/03/22 ondansetron 4 mg oral soluble film 4 mg PO Q6H PRN nausea and 11/03/22 vomiting #20 ea oxycodone 5 mg tablet 5 mg PO BID PRN pain #5 tabs 11/03/22 spironolactone 100 mg tablet 100 mg PO QAM #30 tabs 11/03/22 Allergies Allergy/AdvReac Type Severity Reaction Status Date / Time Penicillins Allergy Unknown Verified 10/30/22 19:57 Review of Systems Status of ROS Reports: 6 or more systems reviewed and unremarkable except as noted in History and below PFSH PFS Medical History PTSD (post-traumatic stress disorder) ?F43.10 - Post-traumatic stress disorder, unspecified (ICD-10) Panic disorder ?F41.0 - Panic disorder [episodic paroxysmal anxiety] (ICD-10) Alcohol dependence ?F10.20 - Alcohol dependence, uncomplicated (ICD-10) Gastritis ?K29.70 - Gastritis, unspecified, without bleeding (ICD-10) Depression ?F32.A - Depression, unspecified (ICD-10) GERD (gastroesophageal reflux disease) ?K21.9 - Gastro-esophageal reflux disease without esophagitis (ICD-10) Pancreatitis ?K85.90 - Acute pancreatitis without necrosis or infection, unspecified (ICD- 10) Surgical History S/P right knee surgery ?Z98.890 - Other specified postprocedural states (ICD-10) Social History Narrative: Lives with Anna (would be medical decision maker if needed) and 6yo son, infant daughter of SIDS in 2019. Social nicotine use, intermittently has daily ETOH use. In AA with good support from and friends. Full Code. What is your current living situation?: I presently have a place to live Problems where you live: no known problems Problems where you live details: no known problems In the past 12 months, utilities in danger of being shut off: no In the past 12 mos, have been you worried that your food would run out before you had money to buy more?: never true In the past 12 mos, the food you bought just didn't last and you didn't have money to buy more?: never true Smoking Status: Current some day smoker What tobacco products do you use: cigarettes Smoking packs per day: 0.5 Smoking cigarettes per day: 10.0 Do you use any of these nicotine containing products: None Second hand tobacco smoke exposure: Yes How often do you have a drink containing alcohol: never How often do you have six or more drinks on one occasion: Never AUDIT-C Alcohol total score: 0 Non-prescribed substance use: denies use Caffeine: No How often does anyone, including family, friends and others, physically hurt you : never How often does anyone, including family, friends and others, insult or talk down to you: never How often does anyone, including family, friends and others, threaten you with harm: never How often does anyone, including family, friends and others, scream or curse at you: never service: Yes Exam Const: Vital Signs, click to edit/add: Vital Signs - 24 hr 11/17/22 17:24 11/17/22 20:55 11/17/22 20:59 Temperature 97.7 F Pulse Rate Pulse Rate [Pulse Oximeter] 92 72 Respiratory Rate 18 Blood Pressure Blood Pressure [Ri ght Upper Arm] 119/87 122/86 Pulse Oximetry 97 95 96 Oxygen Delivery Me thod Room Air Room Air 11/17/22 21:09 11/17/22 21:15 11/17/22 21:30 Temperature Pulse Rate 81 73 75 Pulse Rate [Pulse Oximeter] Respiratory Rate Blood Pressure Blood Pressure [Ri ght Upper Arm] Pulse Oximetry 93 94 96 Oxygen Delivery Me thod 11/17/22 21:32 11/17/22 21:45 Temperature Pulse Rate 69 74 Pulse Rate [Pulse Oximeter] Respiratory Rate Blood Pressure 122/86 Blood Pressure [Ri ght Upper Arm] Pulse Oximetry 93 93 Oxygen Delivery Me thod This 47-year-old male is very pleasant, alert, interactive, no apparent distress. Symmetrical facial function, conjugate gaze with scleral icterus. Speech is normal. Neck is supple, no palpable masses or thyromegaly masses or nodules. Lungs are clear, good air entry, no wheezing crackles. CV regular rate and rhythm, no murmur, normal S1 and S2. Abdomen is distended, some mild epigastric and upper abdominal tenderness but really no rebound or guarding. Do wonder if there is recurrent ascites based on his exam. He certainly does not have any peritoneal findings. On his right side of his abdomen you can see the paracentesis sites and there without any evidence of infection. Documenting provider has reviewed patient's vital signs: yes Course Course ED Course: We will stab lotion IV, give patient some IV pain medicine with morphine, IV Zofran as well as some initial L of fluids. Careful fluid management will be observed but he is relaying that he has not been able to take in much orally, do think he will be safe with 1 L of fluids. Reviewed with him that we are going to recheck labs 1st and foremost. He could have gastritis going on, lipase and amylase were normal yesterday and thus do not think it is pancreatitis but we will recheck all those labs today we may need to reimage is abdomen and he would be fine with that. We will see where his labs are 1st. Reevaluation(s) Time of Reevaluation #1: 22:18 Reevaluation #1: Reviewed with patient his low potassium. He does not feel like he can drink the oral effervescent potassium at this time. Will be giving him 40 mg IV Protonix. His pain had improved with the morphine and was feeling bit better with the Zofran. He is on diuretics that will each is potassium and is not likely getting adequate oral intake to replace it. Will have nursing staff place him on cardiac monitoring and get an EKG with the lower potassium. I do think you would benefit from observation in the hospital to correct electrolytes and get him feeling better so that he can do appropriate oral potassium replacement and supplementation. He does report he has a follow-up with [facility] in about a week and a half. I did subsequently speak with our hospitalist Dr. Lin whom will be down to see the patient shortly. Have done a lab add on for magnesium given his low potassium, ordered 40 mEq IV potassium. Time of Reevaluation #2: 22:50 Reevaluation #2: Nursing staff is provided EKG, QT corrected is 567 milliseconds. The magnesium has come back low normal 1.5. I have discussed with hospitalist Dr. Lin, he is aware. We will initiate 2 g IV magnesium. Vital Signs Vital signs: Initial Vital Signs Temperature 97.7 F 11/17/22 17:24 Temperature Source Temporal Artery Scan 11/17/22 17:24 Pulse Rate 92 11/17/22 17:24 Pulse Rhythm Regular 11/17/22 17:24 Respiratory Rate 18 11/17/22 17:24 Blood Pressure 119/87 11/17/22 17:24 Blood Pressure Mean 97 11/17/22 17:24 Blood Pressure Position Sitting 11/17/22 17:24 Pulse Oximetry 97 11/17/22 17:24 Oxygen Delivery Method Room Air 11/17/22 17:24 Vital Signs Temperature 97.7 F 11/17/22 17:24 Pulse Rate 92 11/17/22 17:24 Respiratory Rate 18 11/17/22 17:24 Blood Pressure 119/87 11/17/22 17:24 Pulse Oximetry 97 11/17/22 17:24 Oxygen Delivery Method Room Air 11/17/22 17:24 Temperature 97.7 F 11/17/22 17:24 Pulse Rate 74 11/17/22 21:45 Respiratory Rate 18 11/17/22 17:24 Blood Pressure 122/86 11/17/22 21:32 Pulse Oximetry 93 11/17/22 21:45 Oxygen Delivery Method Room Air 11/17/22 20:55 MDM - Abdominal Pain Lab Data Attestation: I reviewed the patient's lab results. Labs: Lab Results 11/17/22 11/17/22 Range/Units 20:48 22:09 WBC 8.03 (4.50-11.00) K/uL RBC 4.68 (4.30-5.90) m/uL Hgb 15.9 (13.5-17.5) gm/dL Hct 45.0 (37.0-53.0) % MCV 96 (80-100) fL MCH 34 (26-34) pg MCHC 35 (32-36) gm/dL RDW Coeff of Clint 12.1 (11.5-15.5) % Plt Count 218 (140-440) K/uL Neut % (Auto) 59.3 (42.0-72.0) % Lymph % (Auto) 31.3 (20-44) % Mineral % (Auto) 5.7 (0.0-11.0) % Eos % (Auto) 2.7 (0.0-7.0) % Baso % (Auto) 1.0 (0.0-3.0) % Neut # (Auto) 4.76 (1.7-7.0) K/uL Lymph # (Auto) 2.51 (0.90-2.90) K/uL Mineral # (Auto) 0.50 (0.00-0.90) K/UL Eos # (Auto) 0.22 (0.00-0.50) K/uL Baso # (Auto) 0.08 (0.00-0.30) K/uL Abs Immat Gran (auto) 0.00 (0.00-0.30) K/uL Imm/Tot Granulo (auto) 0.0 % INR 1.21 H (0.91-1.10) APTT 35 H (23-33) Seconds Sodium 133 L (135-149) mmol/L Potassium 2.8 L* (3.6-5.1) mmol/L Chloride 93 L (96-114) mmol/L Carbon Dioxide 32 (20-32) mmol/L Anion Gap 8 (7-15) mEq/L BUN 7 (5-24) mg/dL Creatinine 0.8 (0.5-1.5) mg/dL Estimated GFR 110 ml/min Glucose 92 (60-115) mg/dL Lactate 1.1 (0.5-1.9) mmol/L Calcium 8.7 (8.4-10.6) mg/dL Magnesium 1.5 (1.5-2.6) mg/dL Total Bilirubin 2.3 H (0.1-1.5) mg/dL Direct Bilirubin 0.6 H (0.0-0.5) mg/dL AST 97 H (12-35) U/L ALT 43 (4-50) U/L Alkaline Phosphatase 260 H (40-150) U/L Ammonia 35.0 H (13.1-30.0) umol/L C-Reactive Protein 1.7 H (0.5-1.0) mg/dL Total Protein 7.3 (6.0-8.3) g/dL Albumin 3.2 L (3.3-5.0) g/dL Lipase 65 (23-300) U/L Lab Acknowledgement Test Added ECG Data Attestation: I personally reviewed and interpreted this ECG as follows: (Sinus rhythm, 60 beats per minute. QT corrected is 567 milliseconds.) ECG interpretation date: 11/17/22 ECG interpretation time: 22:49 Critical Care Time Critical Care Time Critical Care Time: No Discharge Plan Discharge Clinical Impression: Alcoholic cirrhosis of liver, Acute epigastric pain, Hypokalemia Patient Disposition: Admitted As Observation
--- OUTSIDE RECORDS SUMMARY | 2022-11-17 20:14 | XMS_ITS | Continuity of Care Document ---
Author Name Unknown Organization [facility] Address [address] [address] [place] [address] Phone Care Team Providers [employer] Name Role Phone Chetan Yan MD Unavailable Unavailabl e Allergies, Adverse Reactions, Alerts Substance Reaction Status Criticality No Known Allergies Active No Inform ation Medications Medication Instructions Dosage Effective Dates (start - stop) Status Comments Creon 24,000-76,000-120 ,000 unit capsule,delayed release take 2 capsule by oral route 3 times every day with meals and 1 caps w/ each snack swallowing whole. Do not crush, chew . Max 10/day - Active Due for office visit OMEPRAZOLE (unknown strength) take 2 capsule by oral route every day before a meal Not Available - Active LEXAPRO (unknown strength) take 1 tablet by oral route every day Not Available - Active Procedures Procedure Date Offic/outpt E&m New Mod-hi Advance Directives Directive Yes / No Effective Date File Name No Information Encounters Encounter Description Practice Location Reason(s) For Visit Diagnoses Date Provider Providers Copied on Encounter [facility], [address] [address], [place], [id number], [place] tel:[phone] [facility] No Information 3 Reyes Benton. [address], [place], [id number] , [place]. [phone] [facility], [address] [address], [place], [id number], [place] tel:[phone] [facility] No Information 2 Mary Jane SEE Steve. [address], [place], [place], [id number] , [place]. [phone] Offic/outpt E&m New Mod-hi [facility], [address] [address], [place], [id number], [place] tel:[phone] [facility] GI Symptoms or Concerns (chief complaint) Alcohol-induced acute pancreatitis, unspecified complication statusSteatorrhe a 2 Mary Jane Wilson. [address], [place], [place], [id number] , [place]. [phone] Referring Provider: Danni Sim MD, [address] [place] [address], [address]. tel:[phone] [facility], [address] [address], [place], [place], [id number], [place] tel:[phone] [facility] No Information 2 Justa SEE Bud. [address], [place], [place], [address] , [place]. [phone] Family History Family Member Type Diagnosis Age At Onset No Information Immunizations Vaccine Date Status Comments SARS-COV-2 (COVID-19) vaccin e, mRNA, spike protein, LNP, preservative free, 30 mcg/0.3mL dose administered Note: [facility] bi-direct ional interface ; Source: Other Registry Pneumovax 23 administered Note: [facility] bi-d irectional interface ; Source: Other Registry SARS-COV-2 (COVID-19) vaccin e, vector non-replicating, recombinant spike protein-Ad26, preservative free, 0.5 mL administered Note: [facility] bi- directional interface ; Source: Other Registry Afluria Qd administered Note: [facility] bi-directional interface ; Source: Other Registry Afluria Qd administered Note: [facility] bi-directional interface ; Source: Other Registry Afluria Qd administered Note: [facility] bi-directional interface ; Source: Other Registry Twinrix administered Note: [facility] bi-d irectional interface ; Source: Other Registry influenza virus vaccine, unspecified formulation administered Note: [facility] bi-di rectional interface ; Source: Other Registry tetanus toxoid, reduced diphtheria toxoid, and acellular pertussis vaccine, adsorbed administered Note: [facility] b i-directional interface ; Source: Other Registry seasonal influenza, intrader mal, preservative free administered Note: [facility] bi-direct ional interface ; Source: Other Registry Influenza, seasonal, injectable administe red Note: [facility] bi- directional interface ; Source: Other Registry tetanus toxoid, reduced diphtheria toxoid, and acellular pertussis vaccine, adsorbed administered Note: [facility] b i-directional interface ; Source: Other Registry Influenza, seasonal, injecta ble, preservative free administered Note: [facility] bi-direct ional interface ; Source: Other Registry Payers Payer name Insurance type Covered democrat ID Authoriza tion(s) No Information Social History Type Description Quantity Date Captured Comments Sex Male Smoking Status No Information Chief Complaint And Reason For Visit No Information Reason For Referral Reason For Referral No Information Plan Of Treatment Date Type Action Status Appointment Juan Ramon Granados BOOKED History Of Present Illness Encounter Date Complaint History Of Prese nt Illness GI Symptoms or Concerns This is a 45-year-old male who is referred for consultation by Danni Sim MD for recurrent alcoholic pancreatitis. I do not have many records. I have a couple notes from the primary clinic. It looks like the patient has had at least 3 episodes of alcoholic pancreatitis in May 2020, January 2021 (says with infection or necrosis then), and in February 2021. His young daughter unexpectedly from suffocation, he started drinking alcohol heavily for about 6 months. He apparently stopped alcohol in July 2020. He went through treatment. He has had recurrent episodes of abdominal pain and when it becomes more severe, then nausea and vomiting as well. He is going to the emergency room about 5 times last year. There have been a few other episodes where he just limited his oral intake, remained on liquids, broth, etc., for a few days and then symptoms have resolved. When he goes to the emergency room, reports getting IV pain medications, antiemetics, often may can get admi Functional Status Date Functional Assessmen t No Information Instructions Date Instruction Additional Infor mation No Information Assessments Type Assessment Date No Information Patient Care Teams Name Effective Dates (start - stop) Status Members No Information
[2022-11-17] MEDS: 0.9 % SODIUM CHLORIDE 1000 ml 1,000 ML 500 ML IV (20:56)
[2022-11-17] MEDS: ONDANSETRON 2 MG/ML inj 4 MG IVP (20:57)
[2022-11-17] MEDS: MORPHINE 4 MG/ML INJ IVP (20:57)
[2022-11-17 21:05] LABS: Basophils Absolute Auto 0.08 K/uL (0.00-0.30); Eosinophils Absolute Auto 0.22 K/uL (0.00-0.50); Eosinophils Percent Auto 2.7 % (0.0-7.0); Hemoglobin* 15.9 gm/dL (13.5-17.5); Lactate* 1.1 mmol/L (0.5-1.9); Lymphocytes Absolute Auto 2.51 K/uL (0.90-2.90); Lymphocytes Percent Auto 31.3 % (20-44); Mean Corpuscular HGB Conc 35 gm/dL (32-36); Mean Corpuscular Hemoglobin 34 pg (26-34); Mean Corpuscular Volume 96 fL (80-100); Monocytes Percent Auto 5.7 % (0.0-11.0); Neutrophils Absolute Auto 4.76 K/uL (1.7-7.0); Neutrophils Percent Auto 59.3 % (42.0-72.0); Platelet Count* 218 K/uL (140-440); RDW Coefficient of Variation % 12.1 % (11.5-15.5); Red Blood Count 4.68 m/uL (4.30-5.90); White Blood Count* 8.03 K/uL (4.50-11.00)
[2022-11-17 21:07] LABS: Slide Review Reflex No
[2022-11-17 21:20] LABS: Albumin* 3.2 g/dL (3.3-5.0); Chloride* 93 mmol/L (96-114); INR 1.21 (0.91-1.10)
[2022-11-17 21:21] LABS: Partial Thromboplastin Time* 35 Seconds (23-33); Sodium* 133 mmol/L (135-149)
[2022-11-17 21:23] LABS: Creatinine* 0.8 mg/dL (0.5-1.5); Estimated Glomerular Filt Rate 110 ml/min
[2022-11-17 21:24] LABS: Alanine Aminotransferase* 43 U/L (4-50); Alkaline Phosphatase* 260 U/L (40-150); Anion Gap 8 mEq/L (7-15); Aspartate Amino Transferase* 97 U/L (12-35); Bilirubin Direct* 0.6 mg/dL (0.0-0.5); Bilirubin Total* 2.3 mg/dL (0.1-1.5); Blood Urea Nitrogen* 7 mg/dL (5-24); Calcium* 8.7 mg/dL (8.4-10.6); Carbon Dioxide* 32 mmol/L (20-32); Glucose* 92 mg/dL (60-115); Lipase* 65 U/L (23-300); Total Protein* 7.3 g/dL (6.0-8.3)
[2022-11-17 21:27] LABS: C Reactive Protein* 1.7 mg/dL (0.5-1.0)
[2022-11-17 21:35] LABS: Potassium* 2.8 mmol/L (3.6-5.1)
[2022-11-17 22:17] LABS: Magnesium* 1.5 mg/dL (1.5-2.6)
[2022-11-17] MEDS: PANTOPRAZOLE SODIUM 40 MG INJ IVP (22:24)
[2022-11-17] MEDS: POTASSIUM CHLORIDE 10 MEQ/100 ML PIGGYBACK 100 MEQ IVPB ×2 (22:24→23:32)
[2022-11-17] MEDS: MAGNESIUM IV 2 GM/50 ML PIGGYBACK IVPB (23:06)
--- NOTE | 2022-11-17 23:15 | PM.IMHP1 ---
Hospitalist- H&P: HPI History of Present Illness Time Seen by Provider: 22:30 Date Seen: 11/17/22 Chief complaint: Abdominal pain, nausea Narrative: Roderick Granados is a 47 year old man with alcohol dependence, sober for the last 2 weeks since he was last hospitalized and found to have hepatic cirrhosis, presents with 4 days of increasing epigastric pain, nausea, intermittent dry heaves, unable to eat or drink much. Had been doing well after his recent hospitalization until about 4 days ago when he was celebrating his son's 7th birthday and he ate a gyro and side dish. Since then he has had this epigastric pain that has not resolved. At times the pain is more intense other times it is present in bothersome. Was assessed for the same in the emergency department a day or 2 ago without any apparent findings. Returns now due to persistence of his discomfort. Denies any blood loss of any sort, upper or lower gastrointestinal tract, genitourinary tract, or otherwise. No recent trauma or injury. Denies fevers, rigors, diaphoresis. Has been taking his prescribed medications as directed. Potassium level was low the last time he checked it 1-2 days ago at 3.0, and today it is down to 2.8. Does take furosemide 40 mg and spironolactone 100 mg once daily. Presently not on potassium supplementation. Has been using the anti emetic ondansetron often on throughout the day. Still taking his escitalopram 20 mg once daily. Denies chest heaviness, pressure, tightness, pain. Denies palpitations or chest fluttering. Denies syncope or near-syncope. Denies orthostasis, lightheadedness, dizziness. Denies cough or dyspnea at rest, paroxysmal nocturnal dyspnea, orthopnea. Denies lower extremity edema. Denies claudication. Review of Systems Status of ROS: Reports: 10 or more systems reviewed and unremarkable except as noted in History and below Narrative: He was able to reschedule his appointment with a [employer] business at [facility] for 1 and half weeks from now. Sober since his last hospitalization. Does not tell me spontaneously plans to maintain his sobriety but indicates he wishes to do so. No night sweats or weight loss. No alcohol withdrawal symptoms at home. [facility] Medical History (Updated 11/17/22 @ 23:37 by Waylon Lin MD) Alcoholic cirrhosis of liver with ascites ?K70.31 - Alcoholic cirrhosis of liver with ascites (ICD-10) PTSD (post-traumatic stress disorder) ?F43.10 - Post-traumatic stress disorder, unspecified (ICD-10) Panic disorder ?F41.0 - Panic disorder [episodic paroxysmal anxiety] (ICD-10) Alcohol dependence ?F10.20 - Alcohol dependence, uncomplicated (ICD-10) Gastritis ?K29.70 - Gastritis, unspecified, without bleeding (ICD-10) Depression ?F32.A - Depression, unspecified (ICD-10) GERD (gastroesophageal reflux disease) ?K21.9 - Gastro-esophageal reflux disease without esophagitis (ICD-10) Pancreatitis ?K85.90 - Acute pancreatitis without necrosis or infection, unspecified (ICD-10) Surgical History S/P right knee surgery ?Z98.890 - Other specified postprocedural states (ICD-10) Social History (Updated 11/17/22 @ 23:30 by Waylon Lin MD) Narrative: Lives with Anna (would be medical decision maker if needed) and 7 yo son, infant daughter of SIDS in 2019. Social nicotine use, history of intermittent daily ETOH use, now sober since the end of October of 2022. In AA with good support from and friends. Full resuscitation in the event of cardiopulmonary demise. What is your current living situation?: I presently have a place to live Problems where you live: no known problems Problems where you live details: no known problems In the past 12 months, utilities in danger of being shut off: no In the past 12 mos, have been you worried that your food would run out before you had money to buy more?: never true In the past 12 mos, the food you bought just didn't last and you didn't have money to buy more?: never true Smoking Status: Current some day smoker What tobacco products do you use: cigarettes Smoking packs per day: 0.5 Smoking cigarettes per day: 10.0 Do you use any of these nicotine containing products: None Second hand tobacco smoke exposure: Yes How often do you have a drink containing alcohol: never How often do you have six or more drinks on one occasion: Never AUDIT-C Alcohol total score: 0 Non-prescribed substance use: denies use Caffeine: No How often does anyone, including family, friends and others, physically hurt you: never How often does anyone, including family, friends and others, insult or talk down to you: never How often does anyone, including family, friends and others, threaten you with harm: never How often does anyone, including family, friends and others, scream or curse at you: never service: Yes Meds Home Medications and Allergies Home Medications Medication Instructions Recorded Confirmed Type omeprazole 20 mg capsule,delayed 20 mg PO DAILY 10/15/21 10/30/22 History release escitalopram oxalate 20 mg tablet 20 mg PO DAILY 10/30/22 10/30/22 History losartan 25 mg tablet 25 mg PO DAILY 10/30/22 10/30/22 History Allergies Allergy/AdvReac Type Severity Reaction Status Date / Time Penicillins Allergy Unknown Verified 10/30/22 19:57 Exam Narrative: Exam Narrative: Examine him in the emergency department. When I see him he appears comfortable in no acute distress. Nevertheless he indicates his pain level is elevated around a 7. Alert and oriented to self, place, time, situation. Articulate, cooperative, friendly. Mood and affect are congruent. Vision and hearing are grossly normal. No icterus or jaundice or petechiae. Abdomen actually little less distended than it was previously, when I saw him about 2 weeks ago. Upper and lower extremities with muscle wasting. Lungs clear to auscultation without wheezing, rhonchi, or rales. Chest wall excursions are full. No CVA tenderness. Heart tones with regular rhythm, normal S1-S2, without murmur, gallop, or rub. PMI not laterally displaced. Abdomen mildly distended with active bowel sounds, soft, nontender except for in the epigastrium. No rebound or guarding. Remove trace edema pretibially bilaterally. Independent transfer, station, and gait. No tremor, asterixis, or ataxia. Const: Vital Signs, click to edit/add: Vital Signs - 24 hr 11/17/22 17:24 11/17/22 20:55 11/17/22 20:59 Temperature 97.7 F Pulse Rate Pulse Rate [Pulse Oximeter] 92 72 Respiratory Rate 18 Blood Pressure Blood Pressure [Ri ght Upper Arm] 119/87 122/86 Pulse Oximetry 97 95 96 Oxygen Delivery Me thod Room Air Room Air 11/17/22 21:09 11/17/22 21:15 11/17/22 21:30 Temperature Pulse Rate 81 73 75 Pulse Rate [Pulse Oximeter] Respiratory Rate Blood Pressure Blood Pressure [Ri ght Upper Arm] Pulse Oximetry 93 94 96 Oxygen Delivery Me thod 11/17/22 21:32 11/17/22 21:45 11/17/22 22:00 Temperature Pulse Rate 69 74 83 Pulse Rate [Pulse Oximeter] Respiratory Rate Blood Pressure 122/86 Blood Pressure [Ri ght Upper Arm] Pulse Oximetry 93 93 94 Oxygen Delivery Me thod 11/17/22 22:01 11/17/22 22:15 11/17/22 22:30 Temperature Pulse Rate 79 84 78 Pulse Rate [Pulse Oximeter] Respiratory Rate Blood Pressure 126/83 Blood Pressure [Ri ght Upper Arm] Pulse Oximetry 94 96 94 Oxygen Delivery Me thod 11/17/22 22:31 11/17/22 22:45 Temperature Pulse Rate 74 82 Pulse Rate [Pulse Oximeter] Respiratory Rate Blood Pressure 122/85 Blood Pressure [Ri ght Upper Arm] Pulse Oximetry 96 96 Oxygen Delivery Me thod Documenting provider has reviewed patient's vital signs: yes Hospitalist - H&P: Result Labs Labs: Short CBC 11/17/22 Range/Units 20:48 WBC 8.03 (4.50-11.00) K/uL Hgb 15.9 (13.5-17.5) gm/dL Hct 45.0 (37.0-53.0) % Plt Count 218 (140-440) K/uL [facility] 11/17/22 20:48 Sodium 133 L Potassium 2.8 L* Chloride 93 L Carbon Dioxide 32 BUN 7 Creatinine 0.8 Glucose 92 Calcium 8.7 Liver Function 11/17/22 Range/Units 20:48 Total Bilirubin 2.3 H (0.1-1.5) mg/dL Direct Bilirubin 0.6 H (0.0-0.5) mg/dL AST 97 H (12-35) U/L ALT 43 (4-50) U/L Alkaline Phosphatase 260 H (40-150) U/L Albumin 3.2 L (3.3-5.0) g/dL Assessment and Plan Assessment and plan (1) Serum total bilirubin elevated: Problem comment: New as of 11/17/2022 Status: Acute (2) Alcoholic cirrhosis of liver with ascites: Problem comment: - patient understands objective severity of disease. Has been on naltrexone and has been to treatment twice. - has appointment scheduled with [facility] as an outpatient, and this will need to be rescheduled -CIWA has been negative to low. continue prn ativan. no active withdrawal noted -spironolactone/furosemide at a 100-40 mg ratio initiated today, 11/01/2022 -s/p 3L ascites drainage; culture/gram stain/cell counts reviewed. On Vanc/Cefepime. Stop vancomycin today. Continue with cefepime. Await cultures. -daily LFTs, INR, electrolytes Status: Acute (3) Hypokalemia: Status: Acute (4) Acute epigastric pain: Problem comment: Etiology to be determined, differential diagnosis includes gastritis, esophagitis, peptic ulcer disease, Helicobacter pylori gastropathy, gastrointestinal angina; doubt pancreatitis or spontaneous bacterial peritonitis. Status: Acute (5) Alcohol dependence: Status: Acute (6) Tobacco dependence: Status: Acute (7) Prolonged QT interval: Problem comment: Hold escitalopram. Decrease dose of ondansetron. Monitor. Status: Acute Plan 1. Reviewed impression with patient. 2. Admit for observation. 3. NPO and IV fluids. 4. Single dose of IV pantoprazole tonight then increase omeprazole 20 mg p.o. b.i.d.. 5. Check abdominal ultrasound. 6. Attempt to obtain esophagogastroduodenoscopic evaluation. 7. Decreased dose of spironolactone and furosemide. 8. Potassium supplementation. 9. Serial laboratory studies. 10. Monitor telemetry and electrocardiogram. 11. Answered his questions to satisfaction. 12. Patient agreeable with above stated plans and recommendations.
[2022-11-18] VITALS (9 sets, daily range): BP systolic 108–136; BP diastolic 75–93; PULSE 56–80; RESP 16–18; TEMP 36.5–36.9; O2SAT 92–97; BMI 28.5
[2022-11-18] MEDS: POTASSIUM BICARB 25 MEQ EFFERVESCENT TAB PO (00:39)
[2022-11-18] MEDS: HYDROmorphone 0.5 mg/0.5 ml inj IVP ×8 (00:39→21:43)
[2022-11-18] MEDS: SODIUM CHLORIDE 0.9 % (FLUSH) 10 ML SYRINGE 5 ML IVF ×6 (00:40→21:43)
[2022-11-18] MEDS: POTASSIUM CHLORIDE 10 MEQ/100 ML PIGGYBACK 100 MEQ IVPB ×2 (00:40→01:56)
--- NOTE | 2022-11-18 05:05 | PC.NURSE ---
Shift note: Pt is conscious, alert and oriented. Admitted to the floor at 2320 on wheelchair with the complaint of abdominal pain started about a week ago. Pt came through the ED with IV Potassium and Magnesium sulphate. Bed given and vital signs monitored will stable. NPO status maintained. Rated pain at 8/10 and was managed with IV Deluded. Pt oriented to room and made comfortable. Pt accidentally removed his IV cannula at 0300 while receiving the 4th dose of IV Potassium. New IV line inserted and continued to completion.
[2022-11-18] MEDS: 0.9 % SODIUM CHLORIDE 500 ML IV (05:46)
[2022-11-18] MEDS: OMEPRAZOLE 20 MG CAPSULE DR PO ×2 (06:30→17:12)
[2022-11-18 06:42] LABS: HCO3 VBG 35 mmol/L (21-28); Lactate* 0.7 mmol/L (0.5-1.9); PCO2 VBG 53 mmHG (40-50); PO2 VBG 35.9 mmHG (25-47); pH VBG 7.424 (7.32-7.43)
[2022-11-18 06:47] LABS: Hematocrit 43.4 % (37.0-53.0); Hemoglobin* 15.3 gm/dL (13.5-17.5); Mean Corpuscular HGB Conc 35 gm/dL (32-36); Mean Corpuscular Hemoglobin 35 pg (26-34); Mean Corpuscular Volume 98 fL (80-100); Platelet Count* 177 K/uL (140-440); Red Blood Count 4.42 m/uL (4.30-5.90); White Blood Count* 6.33 K/uL (4.50-11.00)
--- NOTE | 2022-11-18 07:00 | CRLHL7_ITS ---
For Patients: As a result of the Century Cures Act, medical imaging exams and procedure reports are released immediately into your electronic medical record. You may view this report before your referring provider. If you have questions, please contact your health care provider. INDICATION: elevated LFTs, abdomen pain, ascites. TECHNIQUE: Ultrasound abdomen limited. Sonographic images of the right upper quadrant were obtained using gunter-scale and color Doppler images. COMPARISON: 10/31/2022 ultrasound paracentesis FINDINGS: Liver: Increased parenchymal echotexture with micro nodular peripheral contour of the liver concerning for hepatic steatosis and cirrhosis. No suspicious masses. No intrahepatic biliary dilatation. Gallbladder: No stones or sludge. Normal wall thickness. No pericholecystic fluid. Negative Koenig sign. Common bile duct: 3 mm. Pancreas: Not well visualized due to bowel gas artifact Right kidney: Normal in size. Normal echotexture and cortex. No suspicious masses, stones, or hydronephrosis. Vasculature: Proximal abdominal aorta and IVC are not visualized. Other: Mild volume ascites. IMPRESSION: 1. Increased parenchymal echotexture with micro nodular peripheral contour of the liver concerning for hepatic steatosis and cirrhosis. 2. Mild volume ascites. 3. Unremarkable gallbladder and biliary tree. Dictated by Erick Villalobos MD @ 11/18/2022 7:45:39 AM (Electronically Signed)
[2022-11-18 07:05] LABS: INR 1.26 (0.91-1.10); Prothrombin Time 16.5 Seconds
[2022-11-18 07:06] LABS: Slide Review Reflex No
[2022-11-18 07:07] LABS: Chloride* 97 mmol/L (96-114)
[2022-11-18 07:08] LABS: Sodium* 134 mmol/L (135-149)
[2022-11-18 07:09] LABS: Potassium* 3.6 mmol/L (3.6-5.1)
[2022-11-18 07:11] LABS: Alkaline Phosphatase* 259 U/L (40-150); Anion Gap 4 mEq/L (7-15); Aspartate Amino Transferase* 123 U/L (12-35); Bilirubin Direct* 1.1 mg/dL (0.0-0.5); Bilirubin Total* 3.3 mg/dL (0.1-1.5); Blood Urea Nitrogen* 6 mg/dL (5-24); Carbon Dioxide* 33 mmol/L (20-32); Creatinine* 0.7 mg/dL (0.5-1.5); Estimated Glomerular Filt Rate 114 ml/min; Glucose* 87 mg/dL (60-115); Lipase* 43 U/L (23-300); Total Protein* 6.8 g/dL (6.0-8.3)
[2022-11-18 07:12] LABS: Alanine Aminotransferase* 46 U/L (4-50); Calcium* 8.6 mg/dL (8.4-10.6)
[2022-11-18] MEDS: FUROSEMIDE 20 MG TABLET PO (09:02)
[2022-11-18] MEDS: SPIRONOLACTONE 25 MG TABLET 50 MG PO (09:03)
[2022-11-18] MEDS: LOSARTAN POTASSIUM 50 MG TABLET 25 MG PO (09:03)
[2022-11-18] MEDS: FOLIC ACID 1 MG TABLET PO (09:03)
[2022-11-18] MEDS: OXYCODONE 5 MG TABLET PO (09:53)
--- NOTE | 2022-11-18 10:27 | CRLHL7_ITS ---
For Patients: As a result of the Century Cures Act, medical imaging exams and procedure reports are released immediately into your electronic medical record. You may view this report before your referring provider. If you have questions, please contact your health care provider. LEFT BREAST ULTRASOUND CLINICAL HISTORY: LEFT breast lump. COMPARISON: None. TECHNIQUE: Real-time ultrasound imaging of LEFT breast with imaging documentation. FINDINGS: Targeted sonogram to the retroareolar LEFT breast performed. Somewhat lobular hypoechoic tissue is present beneath the LEFT nipple without abnormal vascularity or drainable fluid collection. IMPRESSION: Probable gynecomastia although mammogram is necessary for confirmation. RECOMMENDATIONS: BILATERAL diagnostic mammography. BI-RADS Category 0: Incomplete: Need Additional Imaging Evaluation and/or Prior Mammograms for Comparison [facility] will contact the patient for follow-up. A lay language report of this examination will be provided to the patient. Dictated by Brian Ortiz MD @ 11/18/2022 12:23:30 PM/gerhard DEJUAN/Dictated by: Brian Ortiz MD @ 11/18/2022 12:23:00 PM (Electronically Signed)
--- NOTE | 2022-11-18 10:30 | P.IMPN_ITS ---
Progress Note: A&P Assessment and plan (1) Acute epigastric pain: Problem details: - unclear source: ddx includes gastritis, esophagitis, PUD, H pylori - normal lipase, reassuring gallbladder, no evidence of SBP - on PPI, EGD to be done 11/19 Status: Acute (2) Alcoholic cirrhosis of liver with ascites: Problem details: - patient understands objective severity of disease, sober since hospital ization in October 2022 - MELD 17 - has appointment scheduled with [facility] as an outpatient on 11/25 - on Lasix and Spironolactone (40/100) as an outpatient; dose changed to 25/50 on admission 11/17 - s/p 3L ascites drainage on 10/31/[address] Perry of General Surgery Status: Acute (3) Serum total bilirubin elevated: Problem details: - noted on admission 11/18/22, had been as high as 3.6 in 09/27 (with PCP at [facility]) Status: Acute (4) Hypokalemia: Problem details: - normalized on 11/18, continue to follow - on Lasix + Spironolactone Status: Acute (5) Tobacco dependence: Problem details: - uses socially, declines replacement Status: Acute (6) Prolonged QT interval: Problem details: - noted previously per chart review - patient recently transitioned from Citalopram to Escitalopram as Escitalopram was more effective - after review of risks/benefits, he would like to stay on Escitalopram - continue to follow on telemetry, d/c Ondansetron Status: Acute (7) Left breast mass: Problem details: - ultrasound ordered Status: Acute Plan - per above - SCDs, Se [place], PPI for ppx (pharmacologic ppx contraindicated given concerns of gastritis, elevated INR) - possibly d/c home tomorrow after EGD with close GI f/u Subjective Date Seen: 11/18/22 Interval history: Roderick was admitted to the hospital on 11/17 with epigastric abdominal pain. Imaging revealed cirrhosis (known), reassuring gallbladder. He is tolerating PPI therapy and has an EGD scheduled for tomorrow. Notes a new L sided breast lump today, no other concerns for hospitalist team. We reviewed lab and imaging results, long QT syndrome on EKG, medication management. Exam Narrative: Exam Narrative: GEN: Alert and laying comfortably in bed, nontoxic, answering questions appropriately HEENT: EOMIs bilaterally, mild scleral icterus CV: RRR, No concerning murmurs R: LCTA bilaterally without concerning wheezing, air movement is adequate Breast: Discreet mass L breast, just behind nipple, approximately 2cm in greatest diameter, normal R breast Ab: Some mottling noted. Mild distension, no significant fluid wave. Ext: wwp, no concerning edema Skin: No concerning skin lesions or rashes on exposed skin Neuro: No focal deficits Psych: Appropriate Const: Vital Signs, click to edit/add: Vital Signs - 24 hr 11/17/22 17:24 11/17/22 20:55 11/17/22 20:59 Temperature 97.7 F Pulse Rate Pulse Rate [Left P ulse Oximeter] Pulse Rate [Pulse Oximeter] 92 72 Respiratory Rate 18 Blood Pressure Blood Pressure [Ri ght Arm] Blood Pressure [Ri ght Upper Arm] 119/87 122/86 Pulse Oximetry 97 95 [facility] 11/17/22 21:09 11/17/22 21:15 11/17/22 21:30 Temperature Pulse Rate 81 73 75 Pulse Rate [Left P ulse Oximeter] Pulse Rate [Pulse Oximeter] Respiratory Rate Blood Pressure Blood Pressure [Ri ght Arm] Blood Pressure [Ri ght Upper Arm] Pulse Oximetry 93 94 96 [facility] 11/17/22 21:32 11/17/22 21:45 11/17/22 22:00 Temperature Pulse Rate 69 74 83 Pulse Rate [Left P ulse Oximeter] Pulse Rate [Pulse Oximeter] Respiratory Rate Blood Pressure 122/86 Blood Pressure [Ri ght Arm] Blood Pressure [Ri ght Upper Arm] Pulse Oximetry 93 93 94 [facility] 11/17/22 22:01 11/17/22 22:15 11/17/22 22:30 Temperature Pulse Rate 79 84 78 Pulse Rate [Left P ulse Oximeter] Pulse Rate [Pulse Oximeter] Respiratory Rate Blood Pressure 126/83 Blood Pressure [Ri ght Arm] Blood Pressure [Ri ght Upper Arm] Pulse Oximetry 94 96 94 [facility] 11/17/22 22:31 11/17/22 22:45 11/17/22 23:42 Temperature 98.3 F Pulse Rate 74 82 Pulse Rate [Left P ulse Oximeter] 82 Pulse Rate [Pulse Oximeter] Respiratory Rate 18 Blood Pressure 122/85 Blood Pressure [Ri ght Arm] 119/85 Blood Pressure [Ri ght Upper Arm] Pulse Oximetry 96 96 94 Oxygen Delivery Me thod Room Air 11/18/22 02:30 11/18/22 02:39 11/18/22 07:49 Temperature 98.2 F 98.1 F Pulse Rate 73 Pulse Rate [Left P ulse Oximeter] 80 76 Pulse Rate [Pulse Oximeter] Respiratory Rate 18 16 Blood Pressure Blood Pressure [Ri ght Arm] 124/81 136/93 H Blood Pressure [Ri ght Upper Arm] Pulse Oximetry 97 92 Oxygen Delivery Me thod Room Air Room Air 11/18/22 08:36 Temperature Pulse Rate 70 Pulse Rate [Left P ulse Oximeter] Pulse Rate [Pulse Oximeter] Respiratory Rate Blood Pressure Blood Pressure [Ri ght Arm] Blood Pressure [Ri ght Upper Arm] Pulse Oximetry Oxygen Delivery Me thod Labs Labs: Laboratory Results - last 24 hr 11/17/22 11/17/22 11/18/22 20:48 22:09 06:20 WBC 8.03 6.33 RBC 4.68 4.42 Hgb 15.9 15.3 Hct 45.0 43.4 MCV 96 98 MCH 34 35 H MCHC 35 35 RDW Coeff of Clint 12.1 Plt Count 218 177 Neut % (Auto) 59.3 Lymph % (Auto) 31.3 [place] % (Auto) 5.7 Eos % (Auto) 2.7 Baso % (Auto) 1.0 Neut # (Auto) 4.76 Lymph # (Auto) 2.51 [place] # (Auto) 0.50 Eos # (Auto) 0.22 Baso # (Auto) 0.08 Abs Immat Gran (auto) 0.00 Imm/Tot Granulo (auto) 0.0 INR 1.21 H 1.26 H APTT 35 H VBG pH 7.424 VBG pCO2 53 H VBG pO2 35.9 VBG HCO3 35 H Sodium 133 L 134 L Potassium 2.8 L* 3.6 Chloride 93 L 97 Carbon Dioxide 32 33 H Anion Gap 8 4 L BUN 7 6 Creatinine 0.8 0.7 Estimated Creat Clear 134.70 Estimated GFR 110 114 Glucose 92 87 Lactate 1.1 0.7 Calcium 8.7 8.6 Phosphorus 3.0 Magnesium 1.5 2.0 Total Bilirubin 2.3 H 3.3 H Direct Bilirubin 0.6 H 1.1 H AST 97 H 123 H ALT 43 46 Alkaline Phosphatase 260 H 259 H Ammonia 35.0 H C-Reactive Protein 1.7 H 2.0 H Total Protein 7.3 6.8 Albumin 3.2 L 3.0 L Lipase 65 43 Lab Acknowledgement Test Added
[2022-11-18] MEDS: ESCITALOPRAM 10 MG TABLET 20 MG PO (11:03)
[2022-11-18] MEDS: PROCHLORPERAZINE 5 MG/ML VIAL IV ×2 (15:13→21:43)
[2022-11-18] MEDS: NICOTINE 4 MG GUM BUCCAL ×3 (15:36→19:35)
--- NOTE | 2022-11-18 18:33 | PC.NURSE ---
Pt alert and oriented. Pt had complaints of pain ranging from 3-7; see EMAR for intervention.?Pt independent in room. Pt regular diet and tolerating well. Pt NPO at midnight. Pt had some complaints of nausea; see EMAR for intervention. Pt napped on and off throughout shift.?
[2022-11-19] MEDS: OXYCODONE 5 MG TABLET PO ×2 (02:08→10:05)
[2022-11-19 03:00] VITALS: BP 122/87; PULSE 60; RESP 18; TEMP 36.7; O2SAT 92
--- NOTE | 2022-11-19 06:23 | PC.NURSE ---
Shift note: Pt is doing well today as pain level reduced. Pain level rated between 2 and 6. PRN given 2x tonight. NPO status maintained. Alert and oriented, vitally stable.Pt is ready for imaging today. Pt had interrupted sleep.
[2022-11-19 06:41] LABS: Basophils Absolute Auto 0.05 K/uL (0.00-0.30); Basophils Percent Auto 0.9 % (0.0-3.0); Eosinophils Absolute Auto 0.17 K/uL (0.00-0.50); Eosinophils Percent Auto 3.1 % (0.0-7.0); Hematocrit 41.7 % (37.0-53.0); Hemoglobin* 14.5 gm/dL (13.5-17.5); Immature Granulocytes Abs Auto 0.04 K/uL (0.00-0.30); Immature Granulocytes Pct Auto 0.7 %; Lymphocytes Absolute Auto 1.27 K/uL (0.90-2.90); Mean Corpuscular HGB Conc 35 gm/dL (32-36); Mean Corpuscular Hemoglobin 34 pg (26-34); Mean Corpuscular Volume 99 fL (80-100); Monocytes Percent Auto 4.9 % (0.0-11.0); Neutrophils Absolute Auto 3.71 K/uL (1.7-7.0); Neutrophils Percent Auto 67.4 % (42.0-72.0); Platelet Count* 173 K/uL (140-440); RDW Coefficient of Variation % 12.6 % (11.5-15.5); Red Blood Count 4.21 m/uL (4.30-5.90); White Blood Count* 5.51 K/uL (4.50-11.00)
[2022-11-19] MEDS: OMEPRAZOLE 20 MG CAPSULE DR PO (06:51)
[2022-11-19 06:57] LABS: Albumin* 2.7 g/dL (3.3-5.0); Chloride* 102 mmol/L (96-114); Sodium* 136 mmol/L (135-149)
[2022-11-19 06:58] LABS: Potassium* 3.4 mmol/L (3.6-5.1)
[2022-11-19 07:00] LABS: Alanine Aminotransferase* 36 U/L (4-50); Alkaline Phosphatase* 250 U/L (40-150); Anion Gap 2 mEq/L (7-15); Aspartate Amino Transferase* 80 U/L (12-35); Blood Urea Nitrogen* 6 mg/dL (5-24); Calcium* 8.9 mg/dL (8.4-10.6); Carbon Dioxide* 32 mmol/L (20-32); Creatinine* 0.7 mg/dL (0.5-1.5); Estimated Glomerular Filt Rate 114 ml/min; Glucose* 118 mg/dL (60-115); Total Protein* 6.3 g/dL (6.0-8.3)
[2022-11-19 07:01] LABS: Magnesium* 1.9 mg/dL (1.5-2.6)
[2022-11-19 07:04] LABS: Slide Review Reflex No
[2022-11-19 07:11] VITALS: PULSE 65
[2022-11-19 07:14] LABS: INR 1.05 (0.91-1.10); Prothrombin Time 14.4 Seconds
[2022-11-19 07:53] VITALS: BP 111/82; PULSE 75; RESP 16; TEMP 36.7; O2SAT 93
--- NOTE | 2022-11-19 08:59 | W.ANESCHARGE ---
Anesthesia Charges Start Date/Time Anesthesia Start Date: 11/19/22 Anesthesia Start Time: 08:32 Stop Date/Time Anesthesia Stop Date: 11/19/22 Anesthesia Stop Time: 08:58
[2022-11-19] MEDS: SPIRONOLACTONE 25 MG TABLET 50 MG PO (09:43)
[2022-11-19] MEDS: LOSARTAN POTASSIUM 50 MG TABLET 25 MG PO (09:43)
[2022-11-19] MEDS: FOLIC ACID 1 MG TABLET PO (09:44)
[2022-11-19] MEDS: FUROSEMIDE 20 MG TABLET PO (09:44)
[2022-11-19] MEDS: ESCITALOPRAM 10 MG TABLET 20 MG PO (09:44)
[2022-11-19] MEDS: SODIUM CHLORIDE 0.9 % (FLUSH) 10 ML SYRINGE 5 ML IVF (09:44)
[2022-11-19] MEDS: POTASSIUM CHLORIDE 10 MEQ CAPSULE ER 20 MEQ PO (09:46)
--- NOTE | 2022-11-19 09:55 | W.ANESCHARGE ---
Anesthesia Charges Start Date/Time Anesthesia Start Date: 11/19/22 Anesthesia Start Time: 08:32 Stop Date/Time Anesthesia Stop Date: 11/19/22 Anesthesia Stop Time: 08:58
--- NOTE | 2022-11-19 10:27 | PM.DS1 ---
DS: Providers Provider Date Seen: 11/19/22 Date of admission: 11/17/22 23:17 Primary care physician: Danni Brower MD Admitting Clinician: Waylon Lin MD Attending Physician on discharge: Maddy Leggett MD Date of Discharge: 11/19/22 DS: Diagnosis Discharge Diagnosis (1) Prolonged QT interval: Status: Acute Problem details: - noted previously per chart review - patient recently transitioned from Citalopram to Escitalopram as Escitalopram was more effective - after review of risks/benefits, he would like to stay on Escitalopram - continue to follow on telemetry, d/c Ondansetron (2) Serum total bilirubin elevated: Status: Acute Problem details: - noted on admission 11/18/22, had been as high as 3.6 in 09/27 (with PCP at [facility]) - improved to normal range upon discharge (3) Alcoholic cirrhosis of liver with ascites: Status: Acute Problem details: - patient understands objective severity of disease, sober since hospitalization in October 2022 - MELD 17 - has appointment scheduled with [facility] as an outpatient on 11/25 - on Lasix and Spironolactone (40/100) as an outpatient; dose changed to 25/50 on admission 11/17 - s/p 3L ascites drainage on 10/31/[address] Perry of General Surgery (4) Hypokalemia: Status: Acute Problem details: - normalized on 11/18, continue to follow - on Lasix + Spironolactone (5) Left breast mass: Status: Acute Problem details: - ultrasound ordered, no acute findings, mammogram recommended as an outpatient (6) Alcoholic cirrhosis of liver: Status: Acute (7) Acute epigastric pain: Status: Acute Problem details: - unclear source: ddx includes gastritis, esophagitis, PUD, H pylori - normal lipase, reassuring gallbladder, no evidence of SBP - on PPI, EGD revealed no acute findings on 11/19 DS: Summary Hospital Course Hospital Course: Roderick is a 47-year-old male with known alcohol liver disease who presented to the hospital with acute epigastric pain. His LFTs were mildly elevated, lipase within normal limits. There was no evidence of SBP. Pain improved during stay and EGD was performed on hospital day 2 with no acute findings. Patient has appointment with GI next week, felt comfortable discharging home with pain medications and anti emetics. Incidentally, noted to have left breast mass. Ultrasound reassuring, mammogram recommended. He will discuss this with his PCP. Status at Discharge Functional status at discharge: independent ambulation Overall status at discharge: patient is progressing back to baseline Time Spent with Patient Time attestation: Total time spent providing and/or coordinating discharge services: Time spent: Greater than 30 minutes Specific discharge activities: Medication management, results review, care coordination with multidisciplinary team Exam Narrative: Exam Narrative: GEN: Alert and oriented, nontoxic HEENT: EOMIs bilaterally, + scleral icterus CV: RRR, No concerning murmurs, rubs, or gallops R: LCTA bilaterally without concerning wheezing, rales, or rhonchi Ab: Mild discomfort to palpation but no rebound or guarding Ext: wwp, no concerning edema Skin: mild jaundice Neuro: No focal deficits Psych: Appropriate Const: Vital Signs, click to edit/add: Vital Signs - 24 hr 11/18/22 10:30 11/18/22 14:56 11/18/22 15:30 Temperature 97.7 F 98.0 F Pulse Rate 56 L Pulse Rate [Left P ulse Oximeter] 74 64 Respiratory Rate 16 18 Blood Pressure [Ri ght Arm] 127/83 129/87 Pulse Oximetry 95 94 Oxygen Delivery Me thod Room Air 11/18/22 15:30 11/18/22 19:00 11/18/22 23:00 Temperature 98.1 F Pulse Rate 78 Pulse Rate [Left P ulse Oximeter] 64 73 Respiratory Rate 18 Blood Pressure [Ri ght Arm] 110/79 Pulse Oximetry 93 Oxygen Delivery Me thod Room Air 11/18/22 23:00 11/19/22 03:00 11/19/22 07:11 Temperature 98.4 F 98.1 F Pulse Rate 65 Pulse Rate [Left P ulse Oximeter] 71 60 Respiratory Rate 18 18 Blood Pressure [Ri ght Arm] 108/75 122/87 Pulse Oximetry 93 92 Oxygen Delivery Me thod Room Air Room Air 11/19/22 07:53 Temperature 98.0 F Pulse Rate Pulse Rate [Left P ulse Oximeter] 75 Respiratory Rate 16 Blood Pressure [Ri ght Arm] 111/82 Pulse Oximetry 93 Oxygen Delivery Me thod Room Air DS: Data Data Completed and Pending Completed studies during hospitalization: Procedures Drainage of Peritoneal Cavity, Percutaneous Approach (10/30/22) Drainage of Peritoneal Cavity, Percutaneous Approach, Diagnostic (10/30/22) Labs on day of discharge: Labs from last 24 hours 11/19/22 06:21 WBC 5.51 RBC 4.21 L Hgb 14.5 Hct 41.7 MCV 99 MCH 34 MCHC 35 RDW Coeff of Clint 12.6 Plt Count 173 Neut % (Auto) 67.4 Lymph % (Auto) 23.0 [place] % (Auto) 4.9 Eos % (Auto) 3.1 Baso % (Auto) 0.9 Neut # (Auto) 3.71 Lymph # (Auto) 1.27 [place] # (Auto) 0.30 Eos # (Auto) 0.17 Baso # (Auto) 0.05 Abs Immat Gran (auto) 0.04 Imm/Tot Granulo (auto) 0.7 INR 1.05 Sodium 136 Potassium 3.4 L Chloride 102 Carbon Dioxide 32 Anion Gap 2 L BUN 6 Creatinine 0.7 Estimated Creat Clear 134.70 Estimated GFR 114 Glucose 118 H Calcium 8.9 Magnesium 1.9 Total Bilirubin 1.0 AST 80 H ALT 36 Alkaline Phosphatase 250 H Total Protein 6.3 Albumin 2.7 L Discharge Plan Discharge Disposition: Home, Self-Care Date of Admission: 11/17/22 23:17 Attending Provider on Discharge: Maddy Leggett Primary Care Provider: Danni Sim Condition: Improved Anticipated Discharge Date/Time: 11/19/22 10:18 Discharge Medications: New oxycodone 5 mg Tablet 5 mg PO BID PRN (Reason: pain) Qty: 20 0RF prochlorperazine maleate [Compazine] 5 mg tablet 5 mg PO BID PRN (Reason: nausea) Qty: 14 0RF Continued omeprazole 20 mg capsule,delayed release(DR/EC) 20 mg PO DAILY losartan 25 mg tablet 25 mg PO DAILY escitalopram oxalate 20 mg tablet 20 mg PO DAILY folic acid 1 mg Tablet 1 mg PO DAILY 30 Days Qty: 30 0RF furosemide 40 mg tablet 40 mg PO QAM Qty: 30 2RF spironolactone 100 mg tablet 100 mg PO QAM Qty: 30 2RF clonazepam 0.5 mg tablet 0.5 mg PO BID PRN aripiprazole 5 mg tablet 5 mg PO DAILY Creon 24,000-76,000 -120,000 unit capsule,delayed release(DR/EC) 2 cap PO TIDWM Rx Instructions: take 2 capsule by oral route 3 times every day with meals and 1 caps w/ each snack swallowing whole. Do not crush, chew . Max 10/day Discontinued ondansetron 4 mg film 4 mg PO Q6H PRN (Reason: nausea and vomiting) Qty: 20 1RF oxycodone 5 mg tablet 5 mg PO BID PRN (Reason: pain) Qty: 5 0RF Discharge Orders: Discharge Order (Routine); Ordered 11/19/22 Ordered By: Maddy Leggett Patient Education: Prochlorperazine (By mouth), Oxycodone, Rapid Release (By mouth), Cirrhosis of the Liver (DC), Abuse of Alcohol (DC) Additional Instructions: Keep appointment with GI on 11/25. See Dr. Sim after that appointment to go over GI recommendations and schedule mammogram. Pain and nausea medication at [facility]. Activity Level: Activity as Tolerated Diet Detail: Floyd diet, advance diet as tolerated Follow Up Appointments: Danni Sim MD [Primary Care Provider] - Forms: [facility] Info Instructions
[2022-11-19 13:15] VITALS: BP 119/89; PULSE 67; RESP 16; TEMP 36.8; O2SAT 95
--- NOTE | 2022-11-19 13:29 | PC.NURSE ---
Pt alert and oriented. VSS. Pt had complaints of pain ranging from 2-6; see EMAR for intervention.?Pt independent in room. Pt regular diet tolerating?well. Pt napped mid morning until early afternoon. Pt discharging home with .?
== END 2022-11-19 13:22 | disposition home or self-care (01) ==
LOC: ED 22:21 → MEDSURG 23:19
PROVIDERS: Family Medicine; Admitting Provider Internal Medicine; Emergency Provider Family Medicine; PCP Family Medicine; Visit Provider Internal Medicine
DX: K70.31 Alcoholic cirrhosis of liver with ascites (principal); E87.6 Hypokalemia; E80.7 Disorder of bilirubin metabolism, unspecified; R74.01 Elevation of levels of liver transaminase levels; R10.13 Epigastric pain; N63.20 Unspecified lump in the left breast, unspecified quadrant; I45.81 Long QT syndrome; F10.20 Alcohol dependence, uncomplicated; F17.200 Nicotine dependence, unspecified, uncomplicated; I10 Essential (primary) hypertension; K21.9 Gastro-esophageal reflux disease without esophagitis; F43.10 Post-traumatic stress disorder, unspecified; Z98.890 Other specified postprocedural states
CPT/HCPCS: 00731; 36415; 43239; 76642; 76705; 80048; 80053; 80076; 82140; 82248; 82803; 83605; 83690; 83735; 84100; 85025; 85027; 85610; 85730; 86140; 88305; 93005; 94761; 99284; 99285; A9270; C9113; G0378; J0780; J1170; J2270; J2405; J2704; J3475; J3480; J7030; J7120

== ENCOUNTER 2023-03-23 07:10 | Emergency (ER) | payer BC, SELFPAY ==
[2023-03-23 07:16] VITALS: BP 140/98; PULSE 82; RESP 18; TEMP 36.6; O2SAT 96; BMI 28.6
--- NOTE | 2023-03-23 07:32 | ED_ITS ---
HPI - General Adult General Date Seen: 03/23/23 Chief complaint: Abdominal Pain Stated complaint: abdominal pain Time Seen by Provider: 03/23/23 07:31 History of Present Illness HPI narrative: This is a 47-year-old male with a past medical history including alcoholic cirrhosis, history of ascites with previous paracentesis, history of pancreatitis,history of gastritis, PTSD, panic disorder. He was hospitalized for Epigastric abdominal pain and vomiting associated with dehydration, hypokalemia, hypo magnesemia associated with prolonged QT in November. EG D performed while in the hospital showed no acute findings. Was on omeprazole, escitalopram, aripiprazole, Creon, folate, some furosemide, spironolactone, clonazepam and given discharge prescriptions for Compazine and oxycodone. he had been sober from alcohol for the past several months. He had does have long-term care for his liver with a GI specialist through [facility]. He can not remember his doctor's name but he sees them in their [facility] clinic. He says his GI doctor told him he does not have cirrhosis. Does not have any long-term trouble with ascites. He is still on Lasix. He is off Creon . he has outpatient support from his , couples therapy call at a psychiatry , therapist, and other outpatient resources. he reports that he relapsed from alcohol 3 days ago. He was drinking heavily Wednesday, Wednesday, Wednesday. Last drink was last night at 6:00 p.m.. Since about 4:00 a.m. he has developed severe abdominal pain. Triage Nurse notes indicate that it is lower abdominal pain. however that is not quite accurate. It is more affecting the abdomen in a bandlike pattern from left right. If anything it is more periumbilical, also lower and upper. He is also nauseous. Multiple episodes of watery emesis. He is also having Watery, nonbloody diarrhea. he has felt chilled and shaky but no objective fevers. He is taking steps to achieve maintain sobriety. He plans to enter into an intensive outpatient program and it is already set up for next week. He was trying to go to work this morning but could not go because of intense pain so came here to the hospital in [place]. Related Data Home Medications Medication Instructions Recorded Confirmed omeprazole 20 mg capsule,delayed 20 mg PO DAILY 10/15/21 11/18/22 release escitalopram oxalate 20 mg tablet 20 mg PO DAILY 10/30/22 11/18/22 losartan 25 mg tablet 25 mg PO DAILY 10/30/22 11/18/22 aripiprazole 5 mg tablet 5 mg PO DAILY 11/18/22 11/18/22 clonazepam 0.5 mg tablet 0.5 mg PO BID PRN 11/18/22 11/18/22 [id number] 2 cap PO TIDWM 11/18/22 11/18/22 24,000-76,000-120,000 unit capsule,delayed rel (Creon) Previous Rx's Medication Instructions Recorded folic acid 1 mg tablet 1 mg PO DAILY 30 days #30 tabs 11/03/22 furosemide 40 mg tablet 40 mg PO QAM #30 tabs 11/03/22 spironolactone 100 mg tablet 100 mg PO QAM #30 tabs 11/03/22 oxycodone 5 mg tablet 5 mg PO BID PRN pain #20 tabs 11/19/22 prochlorperazine maleate 5 mg 5 mg PO BID PRN nausea #14 tabs 11/19/22 tablet (Compazine) Allergies Allergy/AdvReac Type Severity Reaction Status Date / Time Penicillins Allergy Unknown Verified 10/30/22 19:57 [facility] Medical History (Updated 03/23/23 @ 08:25 by Mateus Garcia MD) Left breast mass ?N63.20 - Unspecified lump in the left breast, unspecified quadrant (ICD-10) Prolonged QT interval ?R94.31 - Abnormal electrocardiogram [ECG] [EKG] (ICD-10) Alcoholic cirrhosis of liver ?K70.30 - Alcoholic cirrhosis of liver without ascites (ICD-10) Tobacco dependence ?F17.200 - Nicotine dependence, unspecified, uncomplicated (ICD-10) Alcoholic cirrhosis of liver with ascites ?K70.31 - Alcoholic cirrhosis of liver with ascites (ICD-10) PTSD (post-traumatic stress disorder) ?F43.10 - Post-traumatic stress disorder, unspecified (ICD-10) Panic disorder ?F41.0 - Panic disorder [episodic paroxysmal anxiety] (ICD-10) Alcohol dependence ?F10.20 - Alcohol dependence, uncomplicated (ICD-10) Gastritis ?K29.70 - Gastritis, unspecified, without bleeding (ICD-10) Depression ?F32.A - Depression, unspecified (ICD-10) GERD (gastroesophageal reflux disease) ?K21.9 - Gastro-esophageal reflux disease without esophagitis (ICD-10) Pancreatitis ?K85.90 - Acute pancreatitis without necrosis or infection, unspecified (ICD- 10) Surgical History (Updated 11/18/22 @ 10:49 by Maddy Leggett MD) Hx of breast reduction, elective ?Z98.890 - Other specified postprocedural states (ICD-10) S/P right knee surgery ?Z98.890 - Other specified postprocedural states (ICD-10) Social History (Updated 11/17/22 @ 23:30 by Waylon Lin MD) Narrative: Lives with Anna (would be medical decision maker if needed) and 7 yo son, infant daughter of SIDS in 2019. Social nicotine use, history of intermittent daily ETOH use, now sober since the end of October of 2022. In AA with good support from and friends. Full resuscitation in the event of cardiopulmonary demise. What is your current living situation?: I presently have a place to live Problems where you live: no known problems Problems where you live details: N/A In the past 12 months, utilities in danger of being shut off: no In past 12 months, lack of transportation kept you from medical appts, meetings, work, or getting things needed for daily living: no In the past 12 mos, have been you worried that your food would run out before you had money to buy more?: never true In the past 12 mos, the food you bought just didn't last and you didn't have money to buy more?: never true Highest level of school completed/degree received: Bachelor's degree Smoking Status: Current some day smoker What tobacco products do you use: cigarettes Smoking packs per day: 0.25 Smoking cigarettes per day: 5.0 Years smoked: 20 Smoking pack-years: 5.00 Do you use any of these nicotine containing products: None Second hand tobacco smoke exposure: Yes How often do you have a drink containing alcohol: 2-3 times a week Alcohol type: beer How many standard drinks containing alcohol do you have on a typical day: 10 or more How often do you have six or more drinks on one occasion: Weekly AUDIT-C Alcohol total score: 10 Non-prescribed substance use: denies use Caffeine: Yes How often does anyone, including family, friends and others, physically hurt you : never How often does anyone, including family, friends and others, insult or talk down to you: never How often does anyone, including family, friends and others, threaten you with harm: never How often does anyone, including family, friends and others, scream or curse at you: sometimes service: Yes Exam Narrative: Exam Narrative: Constitutional: Appears well-developed and well-nourished. Alert. Conversan but uncomfortable.. Non toxic. HENT: Head: Atraumatic. Nose: Nose normal. Mouth/Throat: Oral mucosa is clear and moist. no trismus. Pharynx normal. Tonsils symmetric. No tonsillar enlargement, erythema, or exudate. Eyes: Conjunctivae normal. EOM normal. Pupils equal, round, and reactive to light. No scleral icterus. Neck: Normal range of motion. Neck supple. No tracheal deviation present. Cardiovascular: Normal rate, regular rhythm. No gallop. No friction rub. No murmur heard. Symmetric radial artery pulses Pulmonary/Chest: Effort normal. No stridor. No respiratory distress. No wheezes. No rales. No rhonchi . No tenderness. Abdominal: Soft. Bowel sounds normal. No distension. No mass. No definite distention or ascites. He has diffuse tenderness in particular in both upper quadrants and in the mid abdomen. If anything, is least tender in the right lower quadrant. Musculoskeletal: RUE: Normal range of motion. No tenderness. No deformity LUE: Normal range of motion. No tenderness. No deformity RLE: Normal range of motion. No edema. No tenderness. No deformity LLE: Normal range of motion. No edema. No tenderness. No deformity Neurological: Alert and oriented to person, place, and time. Normal strength. CN II-VII intact. No sensory deficit. GCS eye subscore is 4. GCS verbal subscore is 5. GCS motor subscore is 6. Normal coordination Skin: Skin is warm and dry. No rash noted. No pallor. Normal capillary refill. Psychiatric: Normal mood. Normal affect. Const: Vital Signs, click to edit/add: Vital Signs - 24 hr 03/23/23 07:16 03/23/23 08:47 Temperature 97.8 F Pulse Rate [Pulse Oximeter] 82 93 Respiratory Rate 18 Blood Pressure [Ri t Upper Arm] 140/98 H Pulse Oximetry 96 93 Oxygen Delivery Me thod Room Air Room Air Course Vital Signs Vital signs: Initial Vital Signs Temperature 97.8 F 03/23/23 07:16 Temperature Source Temporal Artery Scan 03/23/23 07:16 Pulse Rate 82 03/23/23 07:16 Respiratory Rate 18 03/23/23 07:16 Blood Pressure 140/98 H 03/23/23 07:16 Blood Pressure Mean 112 H 03/23/23 07:16 Blood Pressure Position Supine 03/23/23 07:16 Pulse Oximetry 96 03/23/23 07:16 Oxygen Delivery Method Room Air 03/23/23 07:16 Vital Signs Temperature 97.8 F 03/23/23 07:16 Pulse Rate 82 03/23/23 07:16 Respiratory Rate 18 03/23/23 07:16 Blood Pressure 140/98 H 03/23/23 07:16 Pulse Oximetry 96 03/23/23 07:16 Oxygen Delivery Method Room Air 03/23/23 07:16 Temperature 97.8 F 03/23/23 07:16 Pulse Rate 93 03/23/23 08:47 Respiratory Rate 18 03/23/23 07:16 Blood Pressure 140/98 H 03/23/23 07:16 Pulse Oximetry 93 03/23/23 08:47 Oxygen Delivery Method Room Air 03/23/23 08:47 Medications Administered Medications: Generic Name Dose Route Start Last Admin Trade Name Freq PRN Reason Stop Dose Admin Hydromorphone HCl 0.5 mg 03/23/23 07:54 03/23/23 08:23 Hydromorphone 0.5 Mg/0.5 Ml Inj IVP 0.5 mg Q1H PRN Administration Pain Discontinued Medications Generic Name Dose Route Start Last Admin Trade Name Freq PRN Reason Stop Dose Admin Sodium Chloride 1,000 mls @ 1,000 mls/hr 03/23/23 08:00 03/23/23 08:22 0.9 % Sodium Chloride 1000 Ml IV 03/23/23 08:59 1,000 mls/hr .Q1H ML Administration Ketorolac Tromethamine 15 mg 03/23/23 07:54 03/23/23 08:23 Ketorolac 15 Mg/Ml Inj IVP 03/23/23 07:55 15 mg ONCE ONE Administration Ondansetron HCl 4 mg 03/23/23 07:54 03/23/23 08:22 Ondansetron 2 Mg/Ml Inj IVP 03/23/23 07:55 4 mg ONCE ONE Administration Medical Decision Making MDM Narrative Medical decision making narrative: 47-year-old male with a history of alcohol abuse and previous cirrhosis and previous ascites ( now told that he does not have cirrhosis by his GI doctor ) also history of pancreatitis, gastritis. He had a relapse with heavy alcohol consumption for the past 3 days and then developed severe bilateral abdominal pain beginning about 4 hours prior to arrival here in the ER. Differential is broad including gastritis, pancreatitis, colitis, diverticulitis, early appendicitis , among others. I am most suspicious for either pancreatitis or gastritis triggered by his alcohol binge. Less likely would be SBP given absence of fever and really no significant palpable ascites on my exam. I have ordered laboratory workup and CT imaging for further evaluation. I have ordered IV antiemetics, IV pain meds and IV fluids to help manage the patient's symptoms. None of the patient's initial workup is back at the time of this dictation. I signed the patient over to my partner, Dr. Smiley 8:20 a.m.. He will follow-up on the results of the workup and determine ultimate disposition. clinical impression: 1. Abdominal pain 2. Nausea and vomiting 3. Alcohol abuse (relapse) Lab Data Labs: Lab Results 03/23/23 Range/Units 08:11 WBC 7.26 (4.50-11.00) K/uL RBC 5.16 (4.30-5.90) m/uL Hgb 16.6 (13.5-17.5) gm/dL Hct 48.7 (37.0-53.0) % MCV 94 (80-100) fL MCH 32 (26-34) pg MCHC 34 (32-36) gm/dL RDW Coeff of Clint 14.7 (11.5-15.5) % Plt Count 194 (140-440) K/uL Neut % (Auto) 76.0 H (42.0-72.0) % Lymph % (Auto) 15.3 L (20-44) % Valley % (Auto) 5.9 (0.0-11.0) % Eos % (Auto) 2.1 (0.0-7.0) % Baso % (Auto) 0.6 (0.0-3.0) % Neut # (Auto) 5.50 (1.7-7.0) K/uL Lymph # (Auto) 1.10 (0.90-2.90) K/uL Valley # (Auto) 0.40 (0.00-0.90) K/UL Eos # (Auto) 0.15 (0.00-0.50) K/uL Baso # (Auto) 0.04 (0.00-0.30) K/uL Abs Immat Gran (auto) 0.01 (0.00-0.30) K/uL Imm/Tot Granulo (auto) 0.1 % Sodium 140 (135-149) mmol/L Potassium 3.1 L (3.6-5.1) mmol/L Chloride 104 (96-114) mmol/L Carbon Dioxide 27 (20-32) mmol/L Anion Gap 9 (7-15) mEq/L BUN 7 (5-24) mg/dL Creatinine 0.6 (0.5-1.5) mg/dL Estimated Creat Clear 162.10 Estimated GFR 120 ml/min Glucose 152 H (60-115) mg/dL Calcium 9.1 (8.4-10.6) mg/dL Total Bilirubin 1.2 (0.1-1.5) mg/dL AST 96 H (12-35) U/L ALT 77 H (4-50) U/L Alkaline Phosphatase 148 (40-150) U/L Total Protein 7.3 (6.0-8.3) g/dL Albumin 4.1 (3.3-5.0) g/dL Lipase 21 L (23-300) U/L Discharge Plan Discharge Clinical Impression: Abdominal pain Prescriptions: No Action omeprazole 20 mg capsule,delayed release(DR/EC) 20 mg PO DAILY losartan 25 mg tablet 25 mg PO DAILY escitalopram oxalate 20 mg tablet 20 mg PO DAILY folic acid 1 mg Tablet 1 mg PO DAILY 30 Days Qty: 30 0RF furosemide 40 mg tablet 40 mg PO QAM Qty: 30 2RF spironolactone 100 mg tablet 100 mg PO QAM Qty: 30 2RF clonazepam 0.5 mg tablet 0.5 mg PO BID PRN aripiprazole 5 mg tablet 5 mg PO DAILY Creon 24,000-76,000 -120,000 unit capsule,delayed release(DR/EC) 2 cap PO TIDWM Rx Instructions: take 2 capsule by oral route 3 times every day with meals and 1 caps w/ each snack swallowing whole. Do not crush, chew . Max 10/day oxycodone 5 mg Tablet 5 mg PO BID PRN (Reason: pain) Qty: 20 0RF prochlorperazine maleate [Compazine] 5 mg tablet 5 mg PO BID PRN (Reason: nausea) Qty: 14 0RF Follow Up/Referrals: Danni Sim MD [Referring] -
--- NOTE | 2023-03-23 07:54 | CRLHL7_ITS ---
For Patients: As a result of the 21st Century Cures Act, medical imaging exams and procedure reports are released immediately into your electronic medical record. You may view this report before your referring provider. If you have questions, please contact your health care provider. INDICATION: Diffuse abdominal pain, history of pancreatitis, ETOH, ascites. TECHNIQUE: CT abdomen and pelvis acquired with 98 cc Isovue 370 IV contrast. COMPARISON: CT dated 10/30/2022. Ultrasound from 11/18/2022. FINDINGS: Lower chest: Minimal atelectasis in the visualized lung bases. Liver: Diffuse hepatic steatosis. Hepatomegaly measuring 19.2 cm. Resolution of perihepatic ascites. Gallbladder and bile ducts: Unremarkable. No stones or inflammation. No biliary dilatation. Pancreas: Similar atrophic appearance of the pancreas. No peripancreatic inflammatory changes. Spleen: Unremarkable. Normal in size. No masses. Adrenal glands: Unremarkable. No nodules. Kidneys: Unremarkable. No suspicious masses, stones, or hydronephrosis. GI tract: Unremarkable. Normal in caliber. No sign of mass or inflammation. Normal appendix. Vasculature: Abdominal aorta is normal in caliber. Lymph nodes: No lymphadenopathy. Peritoneum/Abdominal Wall: Previously identified ascites has resolved. No intraperitoneal free air. Fat containing inguinal hernias. Pelvis: Decompressed bladder with circumferential bladder wall thickening and mild pericystic stranding. Bones: Unremarkable for age. IMPRESSION: 1. Bladder wall thickening which may be due to underdistention. There is mild pericystic stranding. Recommend correlation with urinalysis to evaluate for cystitis. 2. Otherwise, no acute abnormality identified in the abdomen or pelvis. Please note that the pancreas can be normal in CT appearance in early pancreatitis. Recommend correlation with serum lipase. 3. Hepatomegaly and hepatic steatosis. Resolution of previously identified abdominopelvic ascites. Please note that all CT scans at this facility use dose modulation, iterative reconstruction, and/or weight-based dosing when appropriate to reduce radiation dose to as low as reasonably achievable. Dictated by Mary Alice Mcmullen MD @ 03/23/2023 8:47:22 AM (Electronically Signed)
[2023-03-23 08:18] LABS: Basophils Absolute Auto 0.04 K/uL (0.00-0.30); Basophils Percent Auto 0.6 % (0.0-3.0); Eosinophils Absolute Auto 0.15 K/uL (0.00-0.50); Eosinophils Percent Auto 2.1 % (0.0-7.0); Hematocrit 48.7 % (37.0-53.0); Hemoglobin* 16.6 gm/dL (13.5-17.5); Immature Granulocytes Abs Auto 0.01 K/uL (0.00-0.30); Immature Granulocytes Pct Auto 0.1 %; Lymphocytes Percent Auto 15.3 % (20-44); Mean Corpuscular HGB Conc 34 gm/dL (32-36); Mean Corpuscular Hemoglobin 32 pg (26-34); Mean Corpuscular Volume 94 fL (80-100); Monocytes Percent Auto 5.9 % (0.0-11.0); Platelet Count* 194 K/uL (140-440); RDW Coefficient of Variation % 14.7 % (11.5-15.5); Red Blood Count 5.16 m/uL (4.30-5.90); White Blood Count* 7.26 K/uL (4.50-11.00)
[2023-03-23] MEDS: ONDANSETRON 2 MG/ML inj 4 MG IVP (08:22)
[2023-03-23] MEDS: 0.9 % SODIUM CHLORIDE 1000 ml 1,000 ML IV (08:22)
[2023-03-23] MEDS: KETOROLAC 15 MG/ML inj IVP (08:23)
[2023-03-23] MEDS: HYDROmorphone 0.5 mg/0.5 ml inj IVP ×3 (08:23→11:01)
[2023-03-23 08:30] LABS: Slide Review Reflex No
[2023-03-23 08:34] LABS: Albumin* 4.1 g/dL (3.3-5.0); Chloride* 104 mmol/L (96-114); Potassium* 3.1 mmol/L (3.6-5.1); Sodium* 140 mmol/L (135-149)
[2023-03-23 08:37] LABS: Alkaline Phosphatase* 148 U/L (40-150); Anion Gap 9 mEq/L (7-15); Aspartate Amino Transferase* 96 U/L (12-35); Bilirubin Total* 1.2 mg/dL (0.1-1.5); Blood Urea Nitrogen* 7 mg/dL (5-24); Carbon Dioxide* 27 mmol/L (20-32); Creatinine* 0.6 mg/dL (0.5-1.5); Estimated Glomerular Filt Rate 120 ml/min; Glucose* 152 mg/dL (60-115); Lipase* 21 U/L (23-300); Total Protein* 7.3 g/dL (6.0-8.3)
[2023-03-23 08:38] LABS: Alanine Aminotransferase* 77 U/L (4-50); Calcium* 9.1 mg/dL (8.4-10.6)
--- OUTSIDE RECORDS SUMMARY | 2023-03-23 08:38 | XMS_ITS | Encounter Summary ---
Author Name Unknown Organization [facility] Address [address] [place] [address] Care Team Providers Care Cooker Soda Name Role Phone Aydin Morales MD Primary Care Provider [phone] Reason for Visit * Reason Comments Follow-up Scheduled Telephone Visit Encounter Details Date Type Department Care Team Description 08/14/2022 1:40 PM CDT Phone Visit [facility] [address] [place] [id number] Isaac Peña MD [address] [place] [id number] Rupture of anterior cruciate ligament of right knee, subsequent encounter (Primary Dx); Primary osteoarthritis of right knee; S/P right knee arthroscopy; Chronic pain of right knee Social History Tobacco Use Types Packs/Day Years Used Date Smoking Tobacco: Former Cigarettes Q uit: 08/09/2013 Smokeless Tobacco: Never Alcohol Use Standard Drinks/Week Comments Yes 2 (1 standard drink = 0.6 oz pur e alcohol) Sex and Gender Information Value Date Recorded Sex Assigned at Not on file Gender Identity Not on file Sexual Orientation Not on file documented as of this encounter Progress Notes * Isaac Peña MD - 08/14/2022 1:40 PM CDT Juan Ramon Granados [id number] [facility] Orthopaedic Surgery Follow-Up 08/14/2022 Telephone visit: Dr. Peña was present at [facility] and the patient was present at home. Interval History: Mr. Granados is a 46 y.o. male who was called on the phone today to review his right knee symptoms and to review his recent MRI findings. He has a known chronic ACL deficient knee and has a history of revision partial medial meniscectomy in 2020. He was last seen on 06/19/22. Please refer to this note for further details regarding his history and physical examination. In the interval time period, he has undergone an MRI examination. Patient states that he continues to have instability and give out sensations with his knee. He notes that he has decreased his softball/baseball activities because of that and is really interested in trying to improve the stability of his knee. He is not really having a lot of pain in the knee. He does get some swelling after instability events. Physical Exam: Deferred. Imaging: MR of the Right Knee (07/17/22): IMPRESSION: 1. There is a very diminutive body to the medial malleolus which is peripherally extruded with a superimposed horizontal cleavage tear. This could represent prior partial meniscectomy/debridement or chronic degeneration. However, the appearance has not significantly changed from the previous examination. 2. Grade 1 sprain of the PCL without tearing. 3. Focal cartilage tearing on both sides of the lateral compartment. The cartilage loss along the tibial plateau is new from the previous examination. The cartilage fissuring and tearing along the lateral femoral condyle is more stable. 4. Attenuation of the proximal attachment of the ACL without any signal abnormality could be related to old injury. There are fibers that remain intact. 5. Moderate severity quadriceps tendinopathy. 6. Mild to moderate patellar tendinopathy. 7. Popliteus tendinopathy without tearing. 8. No significant effusion. 9. No evidence for fracture. Radiology read and my interpretation was discussed with the patient. Assessment: Knee instability, recurrent, right knee 2. ACL deficient knee, chronic, right knee 3. Arthroscopic revision partial medial meniscectomy, removal of loose body, trochlear chondroplasty, and partial synovectomy with synovial biopsy, right knee (DOS: 12/10/20) 4. Early/mild osteoarthritis, right knee Plan: We discussed the clinical findings, interval history, and new imaging findings. We reviewed the diagnoses and questions were answered. He wants to continue with the surgical plan that we had previously discussed. The planned procedure would be an arthroscopic-assisted ACL reconstruction with a BTB allograft. We reviewed the risks and benefits of surgery. We also discussed this at his last visit. We did review that there has been some mild progression of his chondral changes. He really wants to improve his stability and understands that he has some degenerative change in the knee and this may continue to be an issue moving forward. I also reviewed with him today that I would like him to have1-2 visits of physical therapy prior to surgery. He is to discuss with his physical therapist whether or not they are comfortable doing the first dressing change given that patients typically start PT on day 2 after surgery to start working on rehab. Otherwise, he will need a nurse visit for a dressing change per our protocol. His questions are answered. He wishes to proceed with surgery scheduling. Scribe Disclosure: I, Giselle Good, am serving as a scribe to document [...] the applicable clinical services, and (b) the record is accurate. Isaac Peña MD documented in this encounter Plan of Treatment Not on file documented as of this encounter Visit Diagnoses Diagnosis Rupture of anterior cruciate ligament of right knee, subsequent encounter- Primary Primary osteoarthritis of right knee Primary localized osteoarthrosis, lower leg S/P right knee arthroscopy Other postprocedural status Chronic pain of right knee documented in this encounter Care Teams Cooker Soda Relationship Specialty Start Date End Date Aydin Morales MD [address] [facility] [address] [place] [address] PCP - General 08/29/13 documented as of this encounter
--- OUTSIDE RECORDS SUMMARY | 2023-03-23 08:38 | XMS_ITS | Encounter Summary ---
Author Name Unknown Organization [facility] Address [address] [place] [address] Care Team Providers Care Manager Dish Name Role Phone Aydin Morales MD Primary Care Provider [phone] Reason for Visit * Reason Comments Surgery Questions SCHEDULE SURGERY Encounter Details Date Type Department Care Team Description 05/28/[address] [facility] [address] [place] [id number] Isaac Peña MD [address] [place] [address] Surgery Questions (SCHEDULE SURGERY) Social History Tobacco Use Types Packs/Day Years [...] documented as of this encounter Nursing Notes * Shanti Bravo - 06/02/2022 11:43 AM CDT AA left message informing patient that we cannot schedule surgery at this time. We would need documentation from his PCP recommending that he is able to undergo an elective procedure. Dr. Peña would also need to see the patient for a follow up in clinic. Shanti Bravo 11:46 AM 06/02/2022 * Clementina Goel RN - 05/29/2022 3:26 PM CDT Telemed visit on 01/01/[address] Peña for right knee pain, ACL tear. Surgery had been cancelledper PCP recommendation. I would like him to follow-up with me in a couple of months either virtually or in person so that we can talk about how things are going. Pt needs to follow up in clinic prior to scheduling surgery or preop visit. * Mamadou Thomas - 05/28/2022 1:09 PM CDT Has the patient recently had surgery or an injury? No How may we help you today? Pt would like a call back from the AA to schedule surgery Describe your symptoms/concerns: Pt would like to get a date for surgery his pre op is on Wednesday05/29/22. Please advise. When did the issue start: NA Have you been seen for this recently?: NA [[facility]: If yes, please include date and provider.] Is it okay to leave detailed message on your voicemail? YES [[facility]: If this call is after 3 p.m., communicate to patient: If we are not able to get back to you by the end of the day and your symptoms worsen please contact the Careline] documented in this encounter Plan of Treatment Not on file documented as of this encounter Visit Diagnoses Not on filedocumented in this encounter Care Teams Manager Dish Relationship Specialty Start Date End Date Aydin Morales MD [address] [facility] [address] [place] [address] PCP - General 08/29/13 documented as of this encounter
--- OUTSIDE RECORDS SUMMARY | 2023-03-23 08:38 | XMS_ITS | Encounter Summary ---
Author Name Unknown Organization [facility] Address [address] [place] [address] Care Team Providers Care Painter Plate Name Role Phone Aydin Morales MD Primary Care Provider [phone] Encounter Details Date Type Department Care Team Description 02/04/2023 Notes/Orders [facility] [address] [place] [address] Isaac Peña MD [address] [place] [address] Social History Tobacco Use Types Packs/Day Years [...] on filedocumented in this encounter Care Teams Painter Plate Relationship Specialty [place] [address] [place] [address] [address] [place] [address] PCP - General 08/29/13 documented as of this encounter
--- OUTSIDE RECORDS SUMMARY | 2023-03-23 08:38 | XMS_ITS | Encounter Summary ---
Author Name Unknown Organization [facility] Address [address] [place] [address] Care Team Providers Care Life Sciences Instructor Name Role Phone Aydin Morales MD Primary Care Provider [phone] Encounter Details Date Type Department Care Team Description 09/14/2022 Notes/Orders [facility] [address] [place] [address] Isaac Peña MD [address] [place] [address] Social History Tobacco Use Types Packs/Day Years [...] on filedocumented in this encounter Care Teams Life Sciences Instructor Relationship Specialty [place] [address] [place] [address] [address] [place] [address] PCP - General 08/29/13 documented as of this encounter
--- OUTSIDE RECORDS SUMMARY | 2023-03-23 08:38 | XMS_ITS | Encounter Summary ---
Author Name Unknown Organization [facility] Address [address] [place] [address] Care Team Providers Care Brim Plater Name Role Phone Aydin Morales MD Primary Care Provider [phone] Reason for Visit * Reason Comments QUESTIONS, GENERAL MRI RESULTS / NEXT S TEPS Encounter Details Date Type Department Care Team Description 08/10/2022 Telephone [facility] [address] [place], [place] [phone] Iasac Peña MD [address] [place] [address] QUESTIONS, GENERAL (MRI RESULTS / NEXT STEPS) Social History Tobacco Use Types Packs/Day Years [...] encounter Nursing Notes * Shanti Bravo - 08/13/2022 10:47 AM CDT AA called patient to schedule phone MRI result visit. Shanti Bravo 10:47 AM 08/13/2022 * Clementina Goel RN - 08/10/2022 2:41 PM CDT Right knee MRI completed on 07/17/22. Pt needing apt to review results and discuss tx plan. Routing to AA to assist with apt. * Alma Cheema - 08/10/2022 11:16 AM CDT Has the patient recently had surgery or an injury? No How may we help you today? Patient would like to know next steps for his care as MRI has been completed. Describe your symptoms/concerns: na When did the issue start: na Have you been seen for this recently?: na [Mill Manager[facility]t Center: If yes, please include date and provider.] Is it okay to leave detailed message on your voicemail? YES [[facility] Manager[facility]t Center: If this call is after 3 p.m., communicate to patient: If we are not able to get back to you by the end of the day and your symptoms worsen please contact the Careline] documented in this encounter Plan of Treatment Not on file documented as of this encounter Visit Diagnoses Not on filedocumented in this encounter Care Teams Brim Plater Relationship Specialty Start Date End Date Aydin Morales MD [address] [address] PCP - General 08/29/13 documented as of this encounter
--- OUTSIDE RECORDS SUMMARY | 2023-03-23 08:38 | XMS_ITS | Encounter Summary ---
Author Name Unknown Organization [facility] Address [address] [place] [address] Care Team Providers Care Die Cutter Name Role Phone Aydin Morales MD Primary Care Provider [phone] Encounter Details Date Type Department Care Team Description 09/03/2022 Notes/Orders [facility] [address] [place] [address] Isaac Peña MD [address] [place] [address] Social History Tobacco Use Types Packs/Day Years [...] on filedocumented in this encounter Care Teams Die Cutter Relationship Specialty [place] [address] [place] [address] [address] [place] [address] PCP - General 08/29/13 documented as of this encounter
--- OUTSIDE RECORDS SUMMARY | 2023-03-23 08:38 | XMS_ITS | Clinical Summary ---
Author Name Unknown Organization [facility] Address [address] [place] [address] Care Team Providers Care Family Preservation Worker Name Role Phone Aydin Morales MD Primary Care Provider [phone] Source Comments You are receiving this document as you are listed as the primary care provider,follow-up provider, or the patient has been referred to you for consultation.This is in compliance with the Medicare and[facility] EHR Incentive Program,which states Providers who transition their patient to another setting of careor provider of care or refers their patient to another provider of care shouldprovide summary care record for each transition of care or referral. [place] Allergies Active Allergy Reactions Criticality Noted Date Comments Penicillins Rash Medium 08/30/2013 Medications Medication Sig Dispensed Refills Start Date End Date Status sennosides-docusate sodium (SENOKOT S) 8.6-50 MG per tablet Take 1 Tablet by mouth two times a day. While taking narcotics 10 Tablet 0 12/10/2020 Active Additional Information Patient not taking.Reported on 08/13/2021 acetaminophen (TYLENOL) 500 MG tablet Take 500-1,000 mg by mouth. 0 03/24/2021 Active alfuzosin (UROXATRAL) 10 MG 24 hour release tablet alfuzosin ER 10 mg tablet,extended release 24 hr 0 Active Calcium Carbonate (AKA OS-JOYCE) 1250 (500 Ca) MG chewable tablet Chew and swallow 500 mg by mouth. 0 Active FLUoxetine (PROZAC) 20 MG capsule Take 1 Capsule (20 mg) by mouth. 0 Active naltrexone (REVIA) 50 MG tablet Take 50 mg by mouth daily. 0 07/27/2021 Active ondansetron (ZOFRAN-ODT) 4 MG disintegrating tablet ondansetron 4 mg disintegrating tablet 0 Active ondansetron (ZOFRAN) 4 MG tablet Take 4 mg by mouth every 8 hours as needed. 0 04/04/2021 Active pancrelipase, Dvi-Fyjm-Zvcl, (CREON) 27516-35726 units capseul-delayed release particles 0 04/26/2021 Active sildenafil (VIAGRA) 100 MG tablet Take 1/2-1 tab Take 30min to 4 hours before sexual activity. Max 100mg/24hr. 0 06/06/2021 Active tamsulosin (FLOMAX) 0.4 MG CAPS capsule Take 1 Capsule (0.4 mg) by mouth daily. 0 07/21/2021 Active diclofenac (VOLTAREN) 50 MG enteric coated tablet Take 1 Tablet (50 mg) by mouth two times a day. 60 Tablet 0 12/23/2021 Active Active Problems Problem Noted Date Diagnosed Date Rupture of anterior cruciate ligament of right k nee 06/19/2022 Primary osteoarthritis of right knee 11/23/2020 Sprain of anterior cruciate ligament of right kn ee 11/23/2020 Complex tear of medial menis cus of right knee as current injury 11/23/2020 S/P right knee arthroscopy 09/22/2020 Chronic pain of right knee 09/22/2020 Encounters Date Type Department Care Team Description 02/04/2023 Notes/Orders [facility] [address] [place] [phone] Isaac Peña MD from Last 3 Months Social History Tobacco Use Types Packs/Day Years Used Date Smoking Tobacco: Former Cigarettes Q uit: 08/09/2013 Smokeless Tobacco: Never Alcohol Use Standard Drinks/Week Comments Yes 2 (1 standard drink = 0.6 oz pur e alcohol) Sex and Gender Information Value Date Recorded Sex Assigned at Not on file Gender Identity Not on file Sexual Orientation Not on file Last Filed Vital Signs Vital Sign Reading Time Taken Comments Blood Pressure 140/84 12/10/2020 4:13 PM CDT Pulse 64 12/10/2020 4:13 PM CDT Temperature 36.7 ??C (98 ??F) 08/18/2021 1:27 PM CDT Respiratory Rate 16 12/10/2020 4:13 PM CDT Oxygen Saturation 94% 12/10/2020 4:13 PM CDT Inhaled Oxygen Concentration - - Weight 101.2 kg (223 lb) 09/11/2022 11:11 AM CDT Height 177.8 cm (5' 10) 09/11/2022 11:11 AM CDT Body Mass Index 32 09/11/2022 11:11 AM CDT Plan of Treatment Health Maintenance Due Date Last Done Comments Colon Cancer Screening Plan Due 1975 Diabetes Screening- (based on age and BMI) 1975 Hep C Screening (Preventive Services) 1975 HepB (1) 1975 COVID-19 Vaccine (#1) 03/23/1976 HIV Screening (Preventive Services) 1991 Adult Preventive Visit 09/20/1993 Cholesterol 09/20/2010 DTaP/Tdap/Td (3 - Tdap) 08/20/2022 08/20/2012, 03/22 Influenza (#1) 2022 01/02/2021, 11/07, 02/24/2019, Additional history exists Zoster/Shingles (1 of 2) 09/20/2025 HepA Aged Out 06/25/2014 No longer eligi ble based on patient's age to complete this topic Pneumococcal Aged Out 03/05/2021 No longer eligi ble based on patient's age to complete this topic Hib Aged Out No longer eligi ble based on patient's age to complete this topic IPV (Polio) Aged Out No longer eligi ble based on patient's age to complete this topic MCV4 Aged Out No longer eligi ble based on patient's age to complete this topic Care Teams Family Preservation Worker Relationship Specialty Start Date End Date Aydin Morales MD [address] [facility] [address] [facility] [place] [address] PCP - General 08/29/13
--- OUTSIDE RECORDS SUMMARY | 2023-03-23 08:38 | XMS_ITS | Encounter Summary ---
Author Name Unknown Organization [facility] Address [address] [place] [address] Care Team Providers Care Telecom Billing Analyst Name Role Phone Aydin Morales MD Primary Care Provider [phone] Encounter Details Date Type Department Care Team Description 02/04/2022 Notes/Orders [facility] [address] [place] [phone] Isaac Peña MD [address] [place] [address] Social History Tobacco Use Types Packs/Day Years [...] on filedocumented in this encounter Care Teams Telecom Billing Analyst Relationship Specialty [place] [address] [place] [address] [address] [place] [address] PCP - General 08/29/13 documented as of this encounter
--- OUTSIDE RECORDS SUMMARY | 2023-03-23 08:38 | XMS_ITS | Clinical Summary ---
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 Max 100mg/24hr. 10 Tablet 5 05/29/2022 Active escitalopram oxalate (LEXAPRO) 20 mg tablet Take 20 mg by mouth once daily. 0 Active omeprazole (PRILOSEC) 20 mg Delayed-Release capsule Take 20 mg by mouth once daily. 0 Active clonazePAM (KLONOPIN) 0.5 mg tablet Take 0.5 mg by mouth 2 times daily if needed for Anxiety. 0 Active losartan (COZAAR) 25 mg tabletIndications:H TN (hypertension) Take 1 Tablet (25 mg) by mouth once daily. 90 Tablet 1 09/10/2022 Active potassium chloride (KLOR-CON M20) 20 mEq extended-release tablet (part/cryst)Indicat ions:Hypokalemia Take 1 Tablet (20 mEq) by mouth two times daily with meals. 60 Tablet 0 02/24/2023 Active furosemide (LASIX) 20 mg tabletIndications:A lcoholic hepatitis with ascites Take 1 Tablet (20 mg) by mouth every morning. 90 Tablet 1 02/25/2023 Active polyethylene glycol-electrolyte (GOLYTELY) 236-22.74-6.74 -5.86 gram suspensionIndicatio ns:Screen for colon cancer Take 4,000 mL by mouth one time for 1 dose. 4000 mL 0 03/24/2023 03/24/19 Active acetaminophen (TYLENOL EXTRA STRGTH) 500 mg tablet Take 1,000 mg by mouth every 6 hours if needed for Pain. Max acetaminophen dose: 4000mg in 24 hrs. 0 02/26/20 23 Discontinu ed(*Patien t states no longer taking) ondansetron (ZOFRAN ODT) 4 mg disintegrating tabletIndications:H ypokalemia,Abdomina l pain, unspecified abdominal location,Other ascites Place 1-2 Tablets (4-8 mg) on the tongue every 8 hours if needed for Nausea/Vomiting. 15 Tablet 0 10/22/2022 02/26/20 Discontinu ed(*Medica tion adjustment ) Active Problems Problem Noted Date Diagnosed Date Chronic pancreatitis, unspecified pancreatitis t ype 09/10/2022 Alcoholic liver disease 09/10/2022 Acute alcoholic hepatitis 09/07/2022 Hypokalemia 09/07/2022 Nausea and vomiting 09/07/2022 Dehydration 09/07/2022 Tobacco use disorder 09/07/2022 Acute pancreatitis 02/26/2021 Alcohol-induced acute pancre atitis without infection or necrosis 01/06/2021 Failure of outpatient treatment 01/06/2021 Complicated bereavement 01/06/2021 Complex tear of medial menis cus of right knee as current injury 11/23/2020 Sprain of anterior cruciate ligament of right kn ee 11/23/2020 Primary osteoarthritis of right knee 11/23/2020 History of arthroscopy of right knee 09/22/2020 HTN (hypertension) 05/17/2020 Alcohol-induced acute pancre atitis without infection or necrosis 05/17/2020 Panic disorder 11/26/2014 Anxiety 04/07/2014 Chronic prostatitis 05/04/2011 Dislocation closed, finger Overview: LT 5 th finger 2016 Grief at loss of child Alcohol abuse Polyp of colon Encounters Date Type Department Care Team Description 02/25/2023 2:10 PM MILL ROLL REWINDER Office Visit [facility] [address] [place] [address] Harjinder Stout MD Physical 02/25/2023 Telephone [facility] [address] [place] [address] Javi Nicolas MD Need Meds 02/25/2023 Travel 02/23/2023 9:40 PM MILL ROLL REWINDER - 02/24/2023 8:16 AM MILL ROLL REWINDER Emergency [facility] [address] [place] [address] Kristy Weaver NP Carlone, Cassandra Elizabeth, MD Alcohol abuse (Primary Dx); Abdominal pain, unspecified abdominal location; Nausea and vomiting, unspecified vomiting type; Hypokalemia; Gastritis, presence of bleeding unspecified, unspecified chronicity, unspecified gastritis type Discharge Disposition: Home Self Care 02/23/2023 Travel from Last 3 Months Immunizations Name Administration Dates Next Due COVID-19 vaccine ([employer] J) AMISHA DEJESUS 06/08/2020 COVID-19 vaccine ([employer] 30mcg/0.3mL) PFAMISHA 03/05/2021 HepA-HepB ([employer]) 06/25/2014 Influenza Intradermal PF 18-64 yrs 05/03/2012 Influenza Virus, Unspecified 02/24/2019,12/19/19 14 Influenza, IIV3 (Age 6-35 mos) 03/22/2009 Influenza, IIV3 (Age >=3 years) 12/19/19 14,02/05/2013,05/03/2012,2010,01/04/2010,03/22/2009 Influenza, IIV4 01/02/2021, 0,02/24/2019,2018,03/26/2016 Pneumococcal Poly,23-Valent (Pneumovax) 03/05/2021 Tdap 08/20/2012,03/22/2009 Family History Medical History Relation Name Comments Good Health Brother Cancer-colon Father Diabetes Father Other Father polyps colon Good [...] Types Packs/Day Years Used Date Smoking Tobacco: Some Days Cigarettes 0.5 12 Started: 05/25/2002; Last attempted to quit: 05/25/2014 Smokeless Tobacco: Never Tobacco Cessation:Ready to Q uit: Yes; Counseling Given: Yes Comments:occl cigarette when nervous Alcohol Use Standard Drinks/Week Comments Yes 0 (1 standard drink = 0.6 oz pure alcohol) 10/20/22 on and off 6-7 drinks per day PHQ-2 Answer Date Recorded PHQ-2 TOTAL SCORE 2 02/25/2023 Social Connections Answer Date Recorded Frequency of Communication with Friends and Fami ly 0 09/07/2022 Financial Resource Strain Answer Date R ecorded Difficulty of Paying Living Expenses 3 09/07/2022 Difficulty of Paying Living Expenses Not on file 09/07/2022 Food Insecurity Answer Date Recorded Worried About Running Out of Food in the Last Ye ar 1 09/07/2022 Transportation Needs Answer Date Record ed Lack of Transportation (Medical) 1 09/07/2022 Housing Stability Answer Date Recorded Unable to Pay for Housing in the Last Year 1 09/07/2022 Sex and Gender Information Value Date Recorded Sex Assigned at Not on file Gender Identity Not on file Sexual Orientation Not on file Obstetrics History Last Filed Vital Signs Vital Sign Reading Time Taken Comments Blood Pressure 120/66 02/25/2023 2:14 PM MILL ROLL REWINDER Pulse 92 02/25/2023 2:14 PM MILL ROLL REWINDER Temperature 36.6 ??C (97.9 ??F) 02/23/2023 9:47 PM CS T Respiratory Rate 20 02/25/2023 2:14 PM MILL ROLL REWINDER Oxygen Saturation 91% 02/24/2023 8:08 AM MILL ROLL REWINDER Inhaled Oxygen Concentration - - Weight 104.6 kg (230 lb 8 oz) 02/25/2023 2:14 PM MILL ROLL REWINDER Height 176.5 cm (5' 9.5) 02/25/2023 2:14 PM MILL ROLL REWINDER Body Mass Index 33.55 02/25/2023 2:14 PM MILL ROLL REWINDER Plan of Treatment Upcoming Encounters Date Type Department Care Team (Late st Contact Info) Description 03/31/2023 8:30 AM MILL ROLL REWINDER Hospital Encounter [facility] [address] [place] [address] Javi Nicolas MD 100 [facility] [address] 03/31/2023 8:30 AM MILL ROLL REWINDER - 03/31/2023 9:30 AM MILL ROLL REWINDER Surgery [facility] [address] [facility] [place] [address] Javi Nicolas MD [address] [place] [address] COLONOSCOPY Scheduled Procedures Name Priority Associated Diagnoses Date/Ti me COLONOSCOPY Screen for colon cancer 03/31/2023 8:30 AM MILL ROLL REWINDER Health Maintenance Due Date Last Done Comments Pneumococcal series for age 6-64 (2 of 2 - PCV) 03/05/2022 03/05/2021 Tetanus booster 08/20/2022 08/20/2012, 03/22/2009 COVID-19 vaccine series (3 - season) 2022 03/05/2021, 06/08/2020 Influenza for age 9-49 11/06/2022 , 11/27/2019, 02/24/2019, Additional history exists BMI (ht and wt on same day) for age 18+ 02/26/2024 02/25/2023, 09/10/2022, 05/29/2022, Additional history exists Depression screening for age 12+ 02/26/2024 02/25/2023, 02/25/2023, 05/29/2022, Additional history exists Lipids for age 45-75 11/25/2025 11/25/2020, 11/27/2019, 11/10/2018, Additional history exists Colonoscopy through age 75 12/17/202512/17, 10/09/2015, 10/09/2015, Additional history exists Tdap Completed 08/20/2012, 03/22/2009 Hepatitis C screening for ag e 18-79 Completed 12/23/2021 HIV for age 15-65 Completed 09/10/2022 Procedures Procedure Name Priority Date/Time Associated Diagnosis Comments POTASSIUM Timed 02/24/2023 7:22 AM MILL ROLL REWINDER SCAN-CARDIAC STRIP 02/24/2023 5: 35 AM MILL ROLL REWINDER LACTATE VENOUS Timed 02/24/2023 4:22 AM MILL ROLL REWINDER LACTATE VENOUS Today 02/24/2023 2:17 AM MILL ROLL REWINDER LACTATE VENOUS Timed 02/24/2023 12:15 AM MILL ROLL REWINDER EKG 12 LEAD STAT 02/23/2023 11:19 PM MILL ROLL REWINDER AMMONIA STAT 02/23/2023 10:52 PM MILL ROLL REWINDER UA W/ SEDIMENT EXAM REFLEXED PER CRITERIA STAT 02/23/2023 10:[address] ABDOMEN PELVIS W STAT 02/23/2023 1 0:23 PM MILL ROLL REWINDER BLOOD CULTURE STAT 02/23/2023 10:06 PM MILL ROLL REWINDER MAGNESIUM AIMEE 02/23/2023 9:59 PM MILL ROLL REWINDER LACTATE VENOUS Today 02/23/2023 9:59 PM MILL ROLL REWINDER CBC WITH AUTO DIFFERENTIAL STAT 02/23/2023 9:59 PM MILL ROLL REWINDER BLOOD CULTURE STAT 02/23/2023 9:59 PM MILL ROLL REWINDER ETHANOL SERUM OR PLASMA STAT 02/23/2023 9:59 PM MILL ROLL REWINDER LIPASE STAT 02/23/2023 9:59 PM MILL ROLL REWINDER HEPATIC FUNCTION PANEL STAT 02/23/2023 9:59 PM MILL ROLL REWINDER BASIC METABOLIC PANEL STAT 02/23/2023 9:59 PM MILL ROLL REWINDER CBC WITH AUTO DIFFERENTIAL STAT 02/23/2023 9:59 PM MILL ROLL REWINDER from Last 3 Months Results * POTASSIUM (02/24/2023 7:22 AM MILL ROLL REWINDER) POTASSIUM 4.0 3.5 - 5.1 mmol/L 02/24/2023 7:39 AM MILL ROLL REWINDER [facility] Blood BLOOD SPECIMEN / Unknown Venipuncture / Unknown 02/24/2023 7:22 AM MILL ROLL REWINDER 02/24/2023 7:26 AM MILL ROLL REWINDER Octavia Morgan MD CHEMISTRY Performing Organization Address [facility] Co de Phone Number [facility] [address] [place] [address] * SCAN-CARDIAC STRIP (02/24/2023 5:35 AM MILL ROLL REWINDER) Scanner OTHER * LACTATE VENOUS (02/24/2023 4:22 AM MILL ROLL REWINDER) Only the most recent of4 resultswithin the time period is included. [facility] LACTATE,VENOUS 1.9 0.5 - 2.0 mmol/L 02/24/2023 4:57 AM MILL ROLL REWINDER [facility] Blood BLOOD SPECIMEN / Unknown Butterfly / Unknown 02/24/2023 4:22 AM MILL ROLL REWINDER 02/24/2023 4:23 AM MILL ROLL REWINDER Octavia Morgan MD CHEMISTRY Performing Organization Address [facility] de Phone Number [facility] [address] [place] [address] * EKG 12 LEAD (02/23/2023 11:19 PM MILL ROLL REWINDER) [facility] Interpretation Normal sinus rhythm Normal ECG When compared with ECG of 22-OCT-2022 16:22, No significant change was found BEYOND NOW Ventricular Rate 73 BPM BEYOND NOW Atrial Rate 73 BPM BEYOND NOW P-R Interval 158 ms BEYOND NOW QRS Duration 86 ms BEYOND NOW QT 420 ms BEYOND NOW QTc 462 ms BEYOND NOW P [place] 16 degrees BEYOND NOW R [place] -6 degrees BEYOND NOW T [place] 11 degrees BEYOND NOW 02/23/2023 11:1 9 PM MILL ROLL REWINDER 02/24/2023 12:40 AM MILL ROLL REWINDER Kristy Weaver BACK END ARCHITECT EKG ORD BEYOND NOW [place], [place] * (ABNORMAL) AMMONIA (02/23/2023 10:52 PM MILL ROLL REWINDER) AMMONIA 52(H) 11 - 51 umol/L 02/23/2023 11:16 PM [facility] Blood BLOOD SPECIMEN / Unknown Venipuncture / Unknown 02/23/2023 10:52 PM MILL ROLL REWINDER 02/23/2023 10:55 PM MILL ROLL REWINDER Narrative [facility] - 02/23/2023 11:16 PM MILL ROLL REWINDER 1. ??Sulfasalazine and its metabolite Sulfapyridine at therapeutic concentrations may lead to falsely low results. 2. ??Temozolomide and its metabolite MTIC may lead to falsely elevated results, and its metabolite AIC may lead to falsely low results. Kristy Weaver NP CHEMISTRY Performing Organization Address [facility] Co de Phone Number [facility] [address] [place] [phone] * (ABNORMAL) UA W/ SEDIMENT EXAM REFLEXED PER CRITERIA (02/23/2023 10:32 PM MILL ROLL REWINDER) COLOR Yellow Yellow Color 02/23/2023 10:39 PM [facility] CLARITY Clear Clear Clarity 02/23/2023 10:39 PM [facility] SPECIFIC GRAVITY,URINE <=1.005(A) 1.010, 1.015, 1.020, 1.025 02/23/2023 10:39 PM [facility] PH,URINE 6.0 6.0, 7.0, 8.0, 5.5, 6.5, 7.5, 8.5 02/23/2023 10:39 PM [facility] UROBILINOGEN, QUALITATIVE Normal Normal EU/dl 02/23/2023 10:39 PM [facility] PROTEIN, URINE Negative Negative mg/dL 02/23/2023 10:39 PM [facility] GLUCOSE, URINE Negative Negative mg/dL 02/23/2023 10:39 PM MILL ROLL REWINDER [facility] KETONES,URINE Negative Negative mg/dL 02/23/2023 10:39 PM MILL ROLL REWINDER [facility] BILIRUBIN,URI NE Negative Negative 02/23/2023 10:39 PM MILL ROLL REWINDER [facility] OCCULT BLOOD,URINE Negative Negative 02/23/2023 10:39 PM MILL ROLL REWINDER [facility] NITRITE Negative Negative 02/23/2023 10:39 PM MILL ROLL REWINDER [facility] LEUKOCYTE ESTERASE Negative Negative 02/23/2023 10:39 PM MILL ROLL REWINDER [facility] Urine URINE SPECIMEN / Unknown Non-Blood / Unknown 02/23/2023 10:32 PM MILL ROLL REWINDER 02/23/2023 10:35 PM MILL ROLL REWINDER Kristy Weaver BACK END ARCHITECT URINE [facility] [address] [place] [address] * CT ABDOMEN PELVIS W (02/23/2023 10:23 PM MILL ROLL REWINDER) Anatomical Region Laterality Modality Abdomen, Pelvis, AORTA, LIVER, SPLEEN Computed Tomography 02/23/2023 11:2 3 PM MILL ROLL REWINDER Impressions 02/23/2023 11:23 PM MILL ROLL REWINDER 1. Normal pancreas. Note that a normal appearing pancreas on CT does not exclude the clinical diagnosis of acute pancreatitis. 2. Hepatic steatosis. Please note that all CT scans at this facility use dose modulation, iterative reconstruction, and/or weight-based dosing when appropriate to reduce radiation dose to as low as reasonably achievable. Dictated by Robyn Gaytan MD @ 02/23/2023 11:23:08 PM (Electronically Signed) Narrative 02/23/2023 11:23 PM MILL ROLL REWINDER For Patients: ??As a result of the 21st Century Cures Act, medical imaging exams and procedure reports are released immediately into your electronic medical record. ??You may view this report before your referring provider. ??If you have questions, please contact your health care provider. INDICATION: Pancreatitis, history of ascites ?? TECHNIQUE: CT abdomen and pelvis acquired with 100 cc Omnipaque 300 IV contrast. COMPARISON: October 22, 2022 ?? FINDINGS: Lower chest: Unremarkable. ?? Liver: Hepatic steatosis. Spleen: Unremarkable. ?? Pancreas: Unremarkable. ?? Gallbladder and bile ducts: Unremarkable. ?? Adrenal glands: Unremarkable. ?? Kidneys: Unremarkable. ?? GI tract: Unremarkable. ?? Vascular structures: Unremarkable. ?? Lymph nodes: Unremarkable. ?? Miscellaneous: Unremarkable. ??No free air or significant free fluid. ?? Pelvic Organs: Unremarkable. ?? Bones: Unremarkable for age. ?? Procedure Note Robyn Gaytan MD - 02/23/2023 For Patients: As a result of the Cures Act, medical imagingexams and procedure reports are released immediately into your electronicmedical record. You may view this report before your referring provider.If you have questions, please contact your health care provider. INDICATION: Pancreatitis, history of ascites TECHNIQUE: CT abdomen and pelvis acquired with 100 cc Omnipaque 300 IV contrast. COMPARISON: October 22, 2022 FINDINGS: Lower chest: Unremarkable. Liver: Hepatic steatosis. Spleen: Unremarkable. Pancreas: Unremarkable. Gallbladder and bile ducts: Unremarkable. Adrenal glands: Unremarkable. Kidneys: Unremarkable. GI tract: Unremarkable. Vascular structures: Unremarkable. Lymph nodes: Unremarkable. Miscellaneous: Unremarkable. No free air or significant free fluid. Pelvic Organs: Unremarkable. Bones: Unremarkable for age. IMPRESSION: 1. Normal pancreas. Note that a normal appearing pancreas on CT does notexclude the clinical diagnosis of acute pancreatitis. 2. Hepatic steatosis. Please note that all CT scans at this facility use dose modulation,iterative reconstruction, and/or weight-based dosing when appropriate toreduce radiation dose to as low as reasonably achievable. Dictated by Robyn Gaytan MD @ 02/23/2023 11:23:08 PM (Electronically Signed) Kristy Weaver BACK END ARCHITECT CT * BLOOD CULTURE (02/23/2023 10:06 PM MILL ROLL REWINDER) Only the most recent of2 resultswithin the time period is included. CULTURE No Growth. 03/01/2023 8:06 AM MILL ROLL REWINDER [facility] Blood BLOOD SPECIMEN / Unknown Butterfly / Unknown 02/23/2023 10:06 PM MILL ROLL REWINDER 02/23/2023 10:11 PM MILL ROLL REWINDER Kristy Weaver BACK END ARCHITECT MICROBIOLOG Y [facility] [address] [facility] [place] [address] * (ABNORMAL) CBC WITH AUTO DIFFERENTIAL (02/23/2023 9:59 PM MILL ROLL REWINDER) WHITE BLOOD COUNT 11.1(H) 4.5 - 11.0 thou/cu mm 02/23/2023 10:15 PM [facility] RED BLOOD COUNT 4.73 4.30 - 5.90 mil/cu mm 02/23/2023 10:15 PM [facility] HEMOGLOBIN 15.3 13.5 - 17.5 g/dL 02/23/2023 10:15 PM [facility] HEMATOCRIT 44.8 37.0 - 53.0 % 02/23/2023 10:15 PM [facility] MCV 95 80 - 100 fL 02/23/2023 10:15 PM [facility] MCH 32.3 26.0 - 34.0 pg 02/23/2023 10:15 PM [facility] MCHC 34.2 32.0 - 36.0 g/dL 02/23/2023 10:15 PM [facility] RDW 14.8 11.5 - 15.5 % 02/23/2023 10:15 PM [facility] PLATELET COUNT 176 140 - 440 thou/cu mm 02/23/2023 10:15 PM [facility] MPV 10.5 6.5 - 11.0 fL 02/23/2023 10:15 PM [facility] % NEUT 59.3 % 02/23/2023 10:15 PM [facility] % LYMPH 30.4 % 02/23/2023 10:15 PM [facility] % MONO 6.7 % 02/23/2023 10:15 PM [facility] % EOS 2.5 % 02/23/2023 10:15 PM [facility] % BASO 1.1 % 02/23/2023 10:15 PM MILL ROLL REWINDER [facility] ABSOLUTE NEUTROPHILS 6.6 1.7 - 7.0 thou/cu mm 02/23/2023 10:15 PM [facility] ABSOLUTE LYMPHOCYTES 3.4(H) 0.9 - 2.9 thou/cu mm 02/23/2023 10:15 PM [facility] ABSOLUTE MONOCYTES 0.7 <0.9 thou/cu mm 02/23/2023 10:15 PM [facility] ABSOLUTE EOSINOPHILS 0.3 <0.5 thou/cu mm 02/23/2023 10:15 PM [facility] ABSOLUTE BASOPHILS 0.1 <0.3 thou/cu mm 02/23/2023 10:15 PM [facility] Blood BLOOD SPECIMEN / Unknown IV Start / Unknown 02/23/2023 9:59 PM MILL ROLL REWINDER 02/23/2023 10:11 PM MILL ROLL REWINDER Kristy Weaver NP HEMATOLOGY [facility] [address] [place] [address] * (ABNORMAL) ETHANOL SERUM OR PLASMA (02/23/2023 9:59 PM MILL ROLL REWINDER) ETHANOL 0.192(H) <0.010 g/dL 02/23/2023 11:02 PM MILL ROLL REWINDER [facility] Blood BLOOD SPECIMEN / Unknown IV Start / Unknown 02/23/2023 9:59 PM MILL ROLL REWINDER 02/23/2023 10:11 PM MILL ROLL REWINDER Kristy Weaver NP CHEMISTRY [facility] [address] [place], [place] [id number] * MAGNESIUM (02/23/2023 9:59 PM MILL ROLL REWINDER) MAGNESIUM 2.0 1.6 - 2.6 mg/dL 02/23/2023 11:34 PM MILL ROLL REWINDER [facility] Blood BLOOD SPECIMEN / Unknown IV Start / Unknown 02/23/2023 9:59 PM MILL ROLL REWINDER 02/23/2023 10:11 PM MILL ROLL REWINDER Kristy Weaver BACK END ARCHITECT CHEMISTRY Performing Organization Address City/[facility]/ZIP Co de Phone Number [facility] [address] [place] [address] * (ABNORMAL) Lipase (02/23/2023 9:59 PM MILL ROLL REWINDER) LIPASE 6.6(L) 13.0 - 60.0 IU/L 02/23/2023 10:35 PM MILL ROLL REWINDER [facility] Blood BLOOD SPECIMEN / Unknown IV Start / Unknown 02/23/2023 9:59 PM MILL ROLL REWINDER 02/23/2023 10:11 PM MILL ROLL REWINDER Kristy Weaver NP CHEMISTRY Performing Organization Address [facility]/ZIP Co de Phone Number [facility] [address] [place] [address] * (ABNORMAL) Hepatic Function Panel (02/23/2023 9:59 PM MILL ROLL REWINDER) ALBUMIN 3.9(L) 4.0 - 4.9 g/dL 02/23/2023 10:35 PM [facility] PROTEIN,TOTAL 6.9 6.0 - 8.0 g/dL 02/23/2023 10:35 PM [facility] BILIRUBIN,TOTAL 0.7 0.0 - 1.2 mg/dL 02/23/2023 10:35 PM [facility] BILIRUBIN,DIRECT 0.2 0.0 - 0.3 mg/dL 02/23/2023 10:35 PM [facility] BILIRUBIN,INDIRE CT 0.5 0.2 - 0.8 mg/dL 02/23/2023 10:35 PM [facility] ALK PHOSPHATASE 186(H) 40 - 129 IU/L 02/23/2023 10:35 PM [facility] ALT (SGPT) 58(H) 10 - 50 IU/L 02/23/2023 10:35 PM [facility] AST (SGOT) 109(H) 10 - 50 IU/L 02/23/2023 10:35 PM [facility] Blood BLOOD SPECIMEN / Unknown IV Start / Unknown 02/23/2023 9:59 PM MILL ROLL REWINDER 02/23/2023 10:11 PM MILL ROLL REWINDER Kristy Weaver BACK END ARCHITECT CHEMISTRY [facility] [address] [place] [address] * (ABNORMAL) Basic Metabolic Panel (02/23/2023 9:59 PM MILL ROLL REWINDER) SODIUM 134(L) 136 - 145 mmol/L 02/23/2023 10:48 PM [facility] POTASSIUM 2.5(LL) 3.5 - 5.1 mmol/L 02/23/2023 10:48 PM [facility] CHLORIDE 96(L) 98 - 107 mmol/L 02/23/2023 10:48 PM [facility] CO2,TOTAL 26 22 - 29 mmol/L 02/23/2023 10:48 PM [facility] ANION GAP 12 5 - 18 02/23/2023 10:48 PM [facility] GLUCOSE 176(H) 70 - 99 mg/dL 02/23/2023 10:48 PM [facility] CALCIUM 8.8 8.6 - 10.0 mg/dL 02/23/2023 10:48 PM [facility] BUN 4(L) 6 - 20 mg/dL 02/23/2023 10:48 PM [facility] CREATININE 0.73 0.70 - 1.20 mg/dL 02/23/2023 10:48 PM [facility] BUN/CREAT RATIO 5(L) 10 - 20 10:48 PM [facility] eGFR >90 >90 mL/min/1.7 3m2 02/23/2023 10:48 PM [facility] Comment:As of 2021, eG FR is calculated by the CKD-EPI creatinine equation without race adjustment. ??eGFR can be influenced by muscle mass, exercise, and diet. ??The reported eGFR is an estimation only and is only applicable if the renal function is stable. Blood BLOOD SPECIMEN / Unknown IV Start / Unknown 02/23/2023 9:59 PM MILL ROLL REWINDER 02/23/2023 10:11 PM MILL ROLL REWINDER Kristy Weaver NP CHEMISTRY [facility] [address] [place] [address] from Last 3 Months Advance Directives Latest Code Status on File Code Status Date Activated Date Inactivated Comments Full Code 09/07/2022 8:54 PM 09/09/2022 2:13 PM Question Answer Comments Code Status Discussion: Reviewed Preferences Code Status History Code Status Date Activated Date Inactivated Comments Full Code 02/26/2021 1:49 PM 02/27/2021 12:26 PM Question Answer Comments Code Status Discussion: Reviewed Preferences Full Code 01/06/2021 12:02 PM 01/07/2021 12:43 PM Question Answer Comments Code Status Discussion: Not Discussed Full Code 12/17/2020 7:37 AM 12/17/2020 11:31 AM Question Answer Comments Code Status Discussion: Discussed Full Code 05/15/2020 12:45 AM 05/17/2020 5:31 PM Question Answer Comments Code Status Discussion: Not Discussed Care Teams Auto Transmission Mechanic Relationship Specialty Start Date End Date Melisa Delgado NP [address] [place], [place] [address]renato HAQUEABBY MENDES [id number] PCP - General Family Practice 04/05/14
--- OUTSIDE RECORDS SUMMARY | 2023-03-23 08:38 | XMS_ITS | Encounter Summary ---
Author Name Unknown Organization [facility] Address [address] [place] [address] Care Team Providers Care Forestry Adviser Name Role Phone Aydin Morales MD Primary Care Provider [phone] Reason for Referral * Procedure/Equipment (Routine) - Closed Specialty Diagnoses / Procedures Referred By Jaswant britt Referred To Contact Diagnoses Rupture of anterior cruciate ligament of right knee, subsequent encounter Procedures MR Knee Rt WO IV Cont Isaac Peña MD [address] [place] [address] Referral ID Status Reason Start Date Expiration Date Visits Re quested Visits Authorized [id number] Closed 06/19/2022 08/03/2022 1 1 Reason for Visit * Reason Comments KNEE PAIN Right knee Encounter Details Date Type Department Care Team Description 06/19/2022 10:50 AM CDT Office Visit [facility] [address] [place], [place] [id number] Isaac Peña MD [address] [place] [address] Rupture of anterior cruciate ligament of right knee, subsequent encounter (Primary Dx); Primary osteoarthritis of right knee; S/P right knee arthroscopy Social History Tobacco Use Types Packs/Day Years [...] documented as of this encounter Patient Instructions * Patient Instructions* Sommer Wallis - 06/19/2022 10:50 AM CDT Thank you for Choosing [facility] for your health care visit today. Dr. Isaac Peña MD Orthopaedic Surgeon Medication Requests: Prescriptions are not filled on weekends or on weekdays after 3:00 PM. For all medication refills: Request a refill using Evol[employer] or contact your pharmacy. What is Know Your Cost? Know Your Cost is a service for patients and patient/members to call and receive personalized cost information and estimates across our care group. The phone number is (COST) Wednesday - Wednesday 8 AM to 5 PM Advanced Imaging Scheduling: To schedule an MRI, Ultrasound, or Image guided injection at [facility] please call [phone]. To schedule an MRI or CT at a [facility] please call [phone]. [facility] Workers' Compensation [address] [place] [address] (Phone) Email: [email or web address] Release of Information: Radiology/Imaging [address] [place] [address] (Phone) Health Information Management [address] [place] [address] (Phone) YEOXIN VMall documented in this encounter Progress Notes * Isaac Peña MD - 06/19/2022 10:50 AM CDT Juan Ramon Granados [id number] [facility] Orthopaedic Surgery Follow-Up 06/19/2022 Interval History: Juan Ramon Granados is a 46 y.o. male who presents for follow up of his right knee. He was last seen on01/01/2022, via Telemedicine Visit, and I discussed with him that I would like him to work on some lifestyle changes to make sure he is in improved health before we proceed with an elective surgery such as ACL reconstruction. Please refer to this note for further details. In the interval time period, he reports his knee is okay, does not have much pain, but continues to have instability and swelling. He thinks he is overusing his left knee and is starting to have symptoms. He reports his knee gives out once or twice per week. He reports his knee gave out on him, and he fell on ice involving his foot and his other knee. It took approximately 3 weeks for his right knee swelling and ecchymosisto improve. The patient states since his last visit he has gone to treatment, is doing well, and his blood pressure is down. He discussed pain medication with his PCP. He reports he has been sober since 04/19/2022. He is working on stopping smoking, and is vaping. Today the patient rates his pain at 3/10. Physical Exam: General: Alert, oriented, no distress. Right Knee: Extensor mechanism intact. No to trace effusion. No erythema or ecchymosis noted. Calf is soft to palpation. Range of motion of is 0-130 degrees. 2B Hannah's. Positive Pivot [place]. Negative Natan's. Tender medial joint line. Non-tender lateral joint line. Stable to varus and valgus stress at full extension, 30 degrees of flexion. Distal neurovascular exam is grossly within normal limits. Imaging: Previous imaging was reviewed with the patient. Assessment: Knee instability, recurrent, right knee. 2. ACL deficient, chronic, right knee. 3. Arthroscopic revision partial medial meniscectomy, removal of loose body, trochlear chondroplasty, and partial synovectomy with synovial biopsy, right knee (DOS: 12/10/20). 4. Early/mild degenerative joint disease, right knee. Plan: I reviewed the clinical findings with him today. We reviewed his recent history. From an alcohol-use standpoint, he has been sober. He feels that his blood pressure is also much improved. He, of course, will need to pass a pre-operative physical to be cleared for surgery. He has had recurrent instability in his knee. His knee is limiting his quality of life, and he would like to proceed with an anterior cruciate ligament reconstruction. We discussed the previous plan for an anterior cruciate ligament reconstruction with a sddo-mikism-oclc allograft. His questions were answered regarding that.We also reviewed that his MRI is about 10 months or more, and since he has had some recurrent instability, I would like to order a new MRI of his right knee to make sure there has been no significantchondral damage or new meniscal pathology that we may need to discuss prior to surgery. We reviewedusing a [id number]-keayjc-[id number] allograft. His questions were answered regarding that. I would like him tohave a visit with Physical Therapy prior to surgery, more for crutch training and to establish a rel ationship with a PT who he will be working with after. If his physical therapist who he sees 2 daysafter surgery is not comfortable performing a dressing change, he will need a nurse visit as per protocol. We will order an MRI of his right knee. If we have to we will have a telephone visit. It is okay for him to schedule surgery. We spent some time today talking about postoperative pain management, as well. His questions were answered regarding that. We reviewed the risks and benefits of the surgery, and he wishes to proceed with surgical management. cc: No referring provider defined for this encounter. Scribe Disclosure: I, Iman Mclaughlin, am serving as a scribe to document [...] on file documented as of this encounter Results * MR Knee Rt WO IV Cont (07/17/2022 5:45 PM CDT) Anatomical Region Laterality Modality Lower Extremity, Knee, Skeletal, Thigh, Leg, MSK Right Magnetic Resonance 07/17/2022 5:45 PM CDT Narrative 07/18/2022 10:01 AM CDT EXAM: MR KNEE RIGHT WITHOUT IV CONTRAST LOCATION: [facility] DATE/TIME: 07/17/2022, 5:45 PM CDT INDICATION: Knee pain. COMPARISON: MRI 08/18/2021. TECHNIQUE: Unenhanced. FINDINGS: MEDIAL COMPARTMENT: -Meniscus: Focal horizontal cleavage tear of the body of the medial meniscus. The body of the medial meniscus itself is partially extruded and significantly attenuated which could be secondary to chronic degeneration or prior partial meniscectomy. This is well-seen on series 11, images 14-15. -Cartilage: Thinning of the articular cartilage both sides of the compartment. LATERAL COMPARTMENT: -Meniscus: Normal. -Cartilage: Focal cartilage tearing of both sides of the lateral compartment with areas of full-thickness tearing seen along the central portion of the lateral tibial plateau. PATELLOFEMORAL COMPARTMENT: -Alignment: Patella midline. No subluxation or tilting. -Cartilage: Normal. CRUCIATE LIGAMENTS: -ACL: Attenuation of the proximal attachment of the ACL without signal abnormality could be secondary to old injury. -PCL: Grade 1 sprain of the PCL without tearing. COLLATERAL LIGAMENTS: -Medial collateral ligament: Superficial and deep fibers are normal. -Lateral collateral ligament: Normal. POSTEROMEDIAL CORNER: -Distal semimembranosus tendon is normal. -Pes anserine tendons are normal. Posteromedial corner complex ligaments are intact. POSTEROLATERAL CORNER: -Popliteus tendinopathy without tearing. -Biceps femoris tendon and posterolateral corner complex ligaments are intact. EXTENSOR MECHANISM: -Quadriceps tendon: Moderate severity tendinopathy. -Patellar tendon: Mild to moderate tendinopathy. -Patellofemoral ligaments and retinacula: Intact. JOINT: -Small effusion. BONES: -No fracture or concerning marrow replacing lesion. SOFT TISSUES: -Tiny popliteal cyst. IMPRESSION: 1. ??There is a very diminutive body to the medial malleolus which is peripherally extruded with a superimposed horizontal cleavage tear. This could represent prior partial meniscectomy/debridement or chronic degeneration. However, the appearance has not significantly changed from the previous examination. 2. ??Grade 1 sprain of the PCL without tearing. 3. ??Focal cartilage tearing on both sides of the lateral compartment. The cartilage loss along the tibial plateau is new from the previous examination. The cartilage fissuring and tearing along the lateral femoral condyle is more stable. 4. ??Attenuation of the proximal attachment of the ACL without any signal abnormality could be related to old injury. There are fibers that remain intact. 5. ??Moderate severity quadriceps tendinopathy. 6. ??Mild to moderate patellar tendinopathy. 7. ??Popliteus tendinopathy without tearing. 8. ??No significant effusion. 9. ??No evidence for fracture. Procedure Note Jules Chowdhury MD - 07/18/2022 EXAM: MR KNEE RIGHT WITHOUT IV CONTRAST LOC[facility]: [facility] DATE/TIME: 07/17/2022, 5:45 PM CDT INDICATION: Knee pain. COMPARISON: MRI 08/18/2021. TECHNIQUE: Unenhanced. FINDINGS: MEDIAL COMPARTMENT: -Meniscus: Focal horizontal cleavage tear of the body of the medialmeniscus. The body of the medial meniscus itself is partially extruded andsignificantly attenuated which could be secondary to chronic degenerationor prior partial meniscectomy. This is well-seen on series 11, [id number]. -Cartilage: Thinning of the articular cartilage both sides of thecompartment. LATERAL COMPARTMENT: -Meniscus: Normal. -Cartilage: Focal cartilage tearing of both sides of the lateralcompartment with areas of full-thickness tearing seen along the centralportion of the lateral tibial plateau. PATELLOFEMORAL COMPARTMENT: -Alignment: Patella midline. No subluxation or tilting. -Cartilage: Normal. CRUCIATE LIGAMENTS: -ACL: Attenuation of the proximal attachment of the ACL without signalabnormality could be secondary to old injury. -PCL: Grade 1 sprain of the PCL without tearing. COLLATERAL LIGAMENTS: -Medial collateral ligament: Superficial and deep fibers are normal. -Lateral collateral ligament: Normal. POSTEROMEDIAL CORNER: -Distal semimembranosus tendon is normal. -Pes anserine tendons are normal. Posteromedial corner complex ligamentsare intact. POSTEROLATERAL CORNER: -Popliteus tendinopathy without tearing. -Biceps femoris tendon and posterolateral corner complex ligaments areintact. EXTENSOR MECHANISM: -Quadriceps tendon: Moderate severity tendinopathy. -Patellar tendon: Mild to moderate tendinopathy. -Patellofemoral ligaments and retinacula: Intact. JOINT: -Small effusion. BONES: -No fracture or concerning marrow replacing lesion. SOFT TISSUES: -Tiny popliteal cyst. IMPRESSION: 1. There is a very diminutive body to the medial malleolus which isperipherally extruded with a superimposed horizontal cleavage tear. Thiscould represent prior partial meniscectomy/debridement or chronicdegeneration. However, the appearance has not significantly changed fromthe previous examination. 2. Grade 1 sprain of the PCL without tearing. 3. Focal cartilage tearing on both sides of the lateral compartment. Thecartilage loss along the tibial plateau is new from the previousexamination. The cartilage fissuring and tearing along the lateral femoralcondyle is more stable. 4. Attenuation of the proximal attachment of the ACL without any signalabnormality could be related to old injury. There are fibers that remainintact. 5. Moderate severity quadriceps tendinopathy. 6. Mild to moderate patellar tendinopathy. 7. Popliteus tendinopathy without tearing. 8. No significant effusion. 9. No evidence for fracture. Isaac Peña MD RAD MRI documented in this encounter Visit Diagnoses Diagnosis Rupture of anterior cruciate ligament of right knee, subsequent encounter- Primary Primary osteoarthritis of right knee Primary localized osteoarthrosis, lower leg S/P right knee arthroscopy Other postprocedural status Rupture of anterior cruciate ligament of right knee, subsequent encounter documented in this encounter Care Teams Forestry Adviser Relationship Specialty Start Date End Date Aydin Morales MD [address] [facility] [address] [place] [address] PCP - General 08/29/13 documented as of this encounter
--- OUTSIDE RECORDS SUMMARY | 2023-03-23 08:38 | XMS_ITS | Referral Summary ---
Author Name Unknown Organization [facility] Address [address] [place] [address] Care Team Providers Care Vacuum Furnace Operator Name Role Phone Aydin Morales MD Primary Care Provider [phone] Allergies Active Allergy Reactions Criticality Noted Date Comments Penicillins 11/01/2009 Unknown reaction as child Medications Medication Sig Dispensed Refills Start Date End Date Status escitalopram (LEXAPRO) 20 MG tablet Take 20 mg by mouth daily 0 Active omeprazole (PRILOSEC) [address] capsule Take 20 mg by mouth daily 0 Active multivitamin (CENTRUM SILVER) tablet Take 1 tablet by mouth daily 0 Active acetaminophen (TYLENOL) 325 MG tabletIndications: Alcohol-induced acute pancreatitis, unspecified complication status Take 2 tablets (650 mg) by mouth every 6 hours as needed for mild pain, fever or headaches 100 tablet 3 10/23/2020 Active bisacodyl (DULCOLAX) 10 MG suppositoryIndicat ions:Alcohol-induc ed acute pancreatitis, unspecified complication status Place 1 suppository (10 mg) rectally daily as needed for constipation 10 suppository 0 10/23/2020 Active oxyCODONE (ROXICODONE) 5 MG tabletIndications: Alcohol-induced acute pancreatitis, unspecified complication status Take 1 tablet (5 mg) by mouth every 6 hours as needed for moderate to severe pain 18 tablet 0 10/23/2020 Active polyethylene glycol (MIRALAX) 17 GM/Dose powderIndications: Alcohol-induced acute pancreatitis, unspecified complication status Take 17 g by mouth daily as needed for constipation 510 g 0 10/23/2020 Active simethicone (MYLICON) 80 MG chewable tabletIndications: Alcohol-induced acute pancreatitis, unspecified complication status Take 1 tablet (80 mg) by mouth every 6 hours as needed for cramping or other (bloating) 30 tablet 0 10/23/2020 Active Active Problems Problem Noted Date Diagnosed Date Acute pancreatitis 10/20/2020 Alcohol dependence with uncomplicated withdrawal 10/19/2020 Social History Tobacco Use Types Packs/Day Years Used Date Smoking Tobacco: Every Day Cigarettes 0.5 Smokeless Tobacco: Never Alcohol Use Standard Drinks/Week Comments Yes 0 (1 standard drink = 0.6 oz pure alcohol) currently drinking anything, beer or white claws Adolescent Education Answer Date Record ed Getting School Help Needed Not on file 12/12 Sex and Gender Information Value Date Recorded Sex Assigned at Not on file Gender Identity Not on file Sexual Orientation Not on file Last Filed Vital Signs Vital Sign Reading Time Taken Comments Blood Pressure 148/89 10/23/2020 8:22 AM CDT Pulse 67 10/23/2020 8:22 AM CDT Temperature 36.9 ??C (98.4 ??F) 10/23/2020 8:22 AM CD T Respiratory Rate 18 10/23/2020 8:22 AM CDT Oxygen Saturation 97% 10/23/2020 8:22 AM CDT Inhaled Oxygen Concentration - - Weight 95.3 kg (210 lb) 10/20/2020 3:28 AM CDT Height 180.3 cm (5' 11) 10/19/2020 7:27 PM CDT Body Mass Index 29.29 10/19/2020 7:27 PM CDT Plan of Treatment Not on file Advance Directives For more information, please contact: [phone] Latest Code Status on File Code Status Date Activated Date Inactivated Comments Full Code 10/20/2020 3:31 PM 10/23/2020 2:47 PM All b asic and advanced life-sustaining interventions are performed as appropriate Question Answer Comments Code status determined by: Discussion with patient/ legal decision maker Code Status History Code Status Date Activated Date Inactivated Comments Full Code 10/19/2020 7:30 PM 10/20/2020 3:27 AM All b asic and advanced life-sustaining interventions are performed as appropriate Question Answer Comments Code status determined by: Unable to determine; FULL CODE until documents or legal decision maker available Care Teams Vacuum Furnace Operator Relationship Specialty [place] [address] [place] [address] [address] [place] [address] PCP - General 11/01/09
--- OUTSIDE RECORDS SUMMARY | 2023-03-23 08:38 | XMS_ITS | Encounter Summary ---
Author Name Unknown Organization [facility] Address [address] [place] [address] Care Team Providers Care Rotary Dryer Operator Name Role Phone Aydin Morales MD Primary Care Provider [phone] Encounter Details Date Type Department Care Team Description 09/03/2022 Notes/Orders [facility] [address] [place] [address] Isaac Peña MD [address] [place] [address] Social History Tobacco Use Types Packs/Day Years [...] on filedocumented in this encounter Care Teams Rotary Dryer Operator Relationship Specialty [place] [address] [place] [address] [address] [place] [address] PCP - General 08/29/13 documented as of this encounter
--- OUTSIDE RECORDS SUMMARY | 2023-03-23 08:38 | XMS_ITS | Encounter Summary ---
Author Name Unknown Organization [facility] Address [address] [address] Care Team Providers Care Slide Machine Tender Name Role Phone Aydin Morales MD Primary Care Provider [phone] Reason for Visit * Procedure/Equipment (Routine) - Closed Specialty Diagnoses / Procedures Referred By Jaswant britt Referred To Contact Diagnoses Rupture of anterior cruciate ligament of right knee, subsequent encounter Procedures MR Knee Rt WO IV Cont Isaac Peña MD [address] [place] [address] Referral ID Status Reason Start Date Expiration Date Visits Re quested Visits Authorized [id number] Closed 06/19/2022 08/03/2022 1 1 Encounter Details Date Type Department Care Team Description 07/17/2022 4:45 PM CDT Ancillary Procedure [facility] MRI [address] [place] [address] Isaac Peña MD [address] [facility] [address] [place] [id number] Rupture of anterior cruciate ligament of right knee, subsequent encounter Social History Tobacco Use Types [...] on file documented as of this encounter Procedures Procedure Name Priority Date/Time Associated Diagnosis Comments MR KNEE RT WO IV CONT Routine 07/17/2022 5:45 PM CDT Rupture of anterior cruciate ligament of right knee, subsequent encounter documented in this encounter Results * MR Knee Rt WO IV Cont (07/17/2022 5:45 PM CDT) Anatomical Region Laterality Modality Lower Extremity, Knee, Skeletal, Thigh, Leg, MSK Right Magnetic Resonance 07/17/2022 5:45 PM CDT Narrative 07/18/2022 10:01 AM CDT EXAM: MR KNEE RIGHT WITHOUT IV CONTRAST LOCATION: [facility] DATE/TIME: 07/17/2022, 5:45 PM [...] meniscectomy. This is well-seen on series 11, -30. -Cartilage: Thinning of the articular cartilage both [...] encounter documented in this encounter Care Teams Slide Machine Tender Relationship Specialty Start Date End Date Aydin Morales MD [address] [facility] [address] [place] [address] PCP - General 08/29/13 documented as of this encounter
--- OUTSIDE RECORDS SUMMARY | 2023-03-23 08:38 | XMS_ITS | Encounter Summary ---
Author Name Unknown Organization [facility] Address [address] [place] [address] Care Team Providers Care Ironworker Foreman Name Role Phone Aydin Morales MD Primary Care Provider [phone] Reason for Referral * Therapies (Routine) - New Request Specialty Diagnoses / Procedures Referred By Jaswant britt Referred To Contact Diagnoses Rupture of anterior cruciate ligament of right knee, subsequent encounter Isaac Peña MD [address] [facility] [place] [address] POS NOT ON FILE Referral ID Status Reason Start Date Expiration Date V isits Requested Visits Authorized [id number] New Request 08/20/2022 08/20/2023 1 1 Scheduling Instructions This order is your clinician's recommendation for a service and is not an insurance referral which authorizes payment. The recommended service and/or location may not be covered by your insurance plan. Please call the number on your insurance card to find out your specific benefits and coverage for the recommended services and/or location. If you need help scheduling the recommended services, please ask your clinician's staff to assist you. Question Answer Appointment Urgency? Non-Urgent Requested Services Evaluate and treat May use saline for irrigation or cleansing Yes dexamethasone use Yes May check glucose per protocol (see policy link below) or if patient has symptoms? Yes Comments Pre-op and post-op for ACL reconstruction Encounter Details Date Type Department Care Team Description 08/20/2022 Notes/Orders [facility] [address] [place] [address] Olga Wakefield, ATC Rupture of anterior cruciate ligament of right knee, subsequent encounter (Primary Dx) Social History Tobacco Use Types Packs/Day Years [...] as of this encounter Plan of Treatment Scheduled Referrals Name Type Priority Associated Diagnoses Orde r Schedule Physical Therapy Referral Routine Rupture of anterior cruciate ligament of right knee, subsequent encounter Ordered: 08/20/2022 documented as of this encounter Visit Diagnoses Diagnosis Rupture of anterior cruciate ligament of right knee, subsequent encounter- Primary documented in this encounter Care Teams Ironworker Foreman Relationship Specialty Start Date End Date Aydin Morales MD [address] [facility] [address] [place] [address] PCP - General 08/29/13 documented as of this encounter
--- OUTSIDE RECORDS SUMMARY | 2023-03-23 08:38 | XMS_ITS | Clinical Summary ---
Author Name Unknown Organization [facility] Address [address] [place] [address] Care Team Providers Care Business Support Associate Name Role Phone Aydin Morales MD Primary Care Provider [phone] Allergies Active Allergy Reactions Criticality Noted Date [...] OF HM ORDERS 1975 CT COLONOGRAPHY 1975 FIT 1975 FLEX SIG 1975 sDNA (Cologuard) 1975 HIV SCREENING 09/20/1990 HEPATITIS C SCREENING 09/20/1993 LIPID 09/20/2010 HEPATITIS B IMMUNIZATION (2 of 3 - Hep B Twinrix 3-dose series) 07/23/2014 06/25/2014 YEARLY PREVENTIVE VISIT 11/26/2020 11/27/2019 Pneumococcal Vaccine: Pediatrics (0 to 5 Years) and At-Risk Patients (6 to 64 Years) (2 of 2 - PCV) 03/05/2022 03/05/2021 DTAP/TDAP/TD IMMUNIZATION (3 - Td or Tdap) 08/20/2022 08/20/2012, 03/22/2009 COVID-19 Vaccine (3 - season) 2022 03/05/2021, 06/08/2020 INFLUENZA VACCINE (#1) 2022 , 11/27/2019, 02/24/2019, Additional history exists PHQ-2 (once per calendar year) 2023 COLONOSCOPY 01/12/2031 01/12/2021 COLORECTAL CANCER SCREENING 01/12/2031 HPV IMMUNIZATION Aged Out No longer e ligible based on patient's age to complete this topic IPV IMMUNIZATION Aged Out No longer e ligible based on patient's age to complete this topic MENINGITIS IMMUNIZATION Aged Out No l onger eligible based on patient's age to complete this topic RSV MONOCLONAL ANTIBODY Aged Out No l onger eligible based on patient's age to complete this topic Advance Directives For more information, please contact: [phone] Latest Code Status on File Code Status [...] or legal decision maker available Care Teams Business Support Associate Relationship Specialty Start Date End Date Aydin Morales MD [address] [facility] [address] [facility] [address] PCP - General 11/01/09
--- OUTSIDE RECORDS SUMMARY | 2023-03-23 08:39 | XMS_ITS ---
Author Name Unknown Organization [facility] Address [address] [place] [address] Care Team Providers Care Quality Assurance Nurse Name Role Phone Unavailable Unavailable Unavailable Surgery Details Not on file Complications Check Surgery Details section. Procedure Estimated Blood Loss Check Surgery Details section. Procedure Findings Check Surgery Details section. Procedure Specimens Taken Check Surgery Details section.
--- OUTSIDE RECORDS SUMMARY | 2023-03-23 08:39 | XMS_ITS | Referral Summary ---
Author Name Unknown Organization [facility] Address [address] [place] [address] Care Team Providers Care Host/Hostess Ground Name Role Phone Elsewhere, Pcp Primary Care Provider Unavailabl e Source Comments Patient records contain information from all sites at [facility]. For routine questions regarding patient records, call [phone] during business hours, M-F 8:00 AM - 5:00 PM Central Time. Record requests for emergency care only can be directed to [phone] at any time.[facility] Allergies No known active allergies Medications Medication Sig Dispensed Refills Start Date End Date Status naltrexone (DEPADE) 50 mg tablet Take 50 mg by mouth daily. 0 Active FLUoxetine (PROzac) 40 mg capsule Take 40 mg by mouth daily. 0 Active clonazePAM (KlonoPIN) 0.5 mg tablet Take 0.5 mg by mouth 2 (two) times a day. 0 Active omeprazole (PriLOSEC) [address] capsule Take 20 mg by mouth every morning before breakfast. 0 Active tamsulosin (FLOMAX) 0.4 mg 24 hr capsule Take 0.4 mg by mouth daily. 0 Active Immunizations Name Administration Dates Next Due Influenza, Unspecified 12/18/2013 Tdap 08/20/2012 Social History Tobacco Use Types Packs/Day Years Used Date Smoking Tobacco: Every Day Nutrition Answer Date Recorded Nutrition: EVOO Fat Source Unknown 06/26 Nutrition: Servings of Fruits/Vegetables per Day Not on file 06/26/2020 Dental Answer Date Recorded Dental: Regular Dentist Unknown 06/27/19 Sex and Gender Information Value Date Recorded Sex Assigned at Male 10/02/2021 1:59 PM CDT Gender Identity Male 10/02/2021 1:59 PM CDT Sexual Orientation Straight 10/02/2021 1: 59 PM CDT Last Filed Vital Signs Vital Sign Reading Time Taken Comments Blood Pressure 130/84 02/12/2014 11:24 AM CHEMICAL WEIGHER Pulse 88 02/12/2014 11:24 AM CHEMICAL WEIGHER Temperature - - Respiratory Rate 16 02/12/2014 11:24 AM CHEMICAL WEIGHER Oxygen Saturation - - Inhaled Oxygen Concentration - - Weight 104 kg (228 lb 13.4 oz) 12/18/2013 9:53 A M CDT Height 180 cm (5' 10.87) 02/12/2014 11:24 AM CS T Body Mass Index 32.04 12/18/2013 9:53 AM CDT Plan of Treatment Not on file Care Teams Host/Hostess Ground Relationship Specialty Start Date End Date Elsewhere, Pcp PCP - General Family Medicine 08/10/17
--- OUTSIDE RECORDS SUMMARY | 2023-03-23 08:39 | XMS_ITS | Clinical Summary ---
Author Name Unknown Organization [facility] Address [address] [place] [address] Care Team Providers Care Attending Radiologist Name Role Phone Elsewhere, Pcp Primary Care Provider Unavailabl e Source Comments Patient records contain information from all sites at [facility]. For routine questions regarding patient records, call [phone] during business hours, M-F 8:00 AM - 5:00 PM Central Time. Record requests for emergency care only can be directed to [phone] at any time.[facility] Allergies No known active allergies Medications [...] Comments Blood Pressure 130/84 02/12/2014 11:24 AM SIEVE MAKER Pulse 88 02/12/2014 11:24 AM SIEVE MAKER Temperature - - Respiratory Rate 16 02/12/2014 11:24 AM SIEVE MAKER Oxygen Saturation - - Inhaled Oxygen Concentration [...] B Vaccines (2 of 3 - Hep B Twinrix 3-dose series) 07/23/2014 06/25/2014 Pneumococcal vaccine (0-64 y ears) (2 of 2 - PCV) 03/05/2022 03/05/2021 DTaP,Tdap,and Td Vaccines (3 - Td or Tdap) 08/20/2022 08/20/2012, 03/22/2009 COVID-19 Vaccine (3 - 2022-2 4 season) 2022 03/05/2021, 06/08/2020 Depression Screening (Annual PHQ-2) 03/08/2023 Fasting Glucose for Diabetes Screening 11/15/2024 11/15/2021, 11/11/2021, 07/22/2021, Additional history exists Lipid (Cholesterol) Screening 11/25/2025, 11/27/2019, 11/10/2018 Influenza Vaccine Completed 12/18/2022, , 11/27/2019, Additional history exists Care Teams Attending Radiologist Relationship Specialty Start Date End Date Elsewhere, Pcp PCP - General Family Medicine 08/10/17
[2023-03-23 08:47] VITALS: PULSE 93; O2SAT 93
[2023-03-23 09:55] LABS: Appearance Urine Clear (Clear); Bilirubin Urine 1+ (Negative); Blood Urine Negative (Negative); Color Urine Dark yellow (Yellow); Glucose Urine Negative (Negative); Ketones Urine Trace (Negative); Leukocyte Esterase Urine Negative (Negative); Nitrite Urine Negative (Negative); Protein Urine Negative (Negative); Specific Gravity Urine <= 1.005 (1.000-1.030)
[2023-03-23 10:06] VITALS: BP 137/91; PULSE 77; RESP 18; O2SAT 93
[2023-03-23 10:18] LABS: RBC Urine 0-2 (0-2); Squamous Epithelial Cell Urine Few (None-Few); WBC Urine 0-2 (0-5)
== END 2023-03-23 11:39 | disposition home or self-care (01) ==
PROVIDERS: Emergency Medicine; Emergency Provider Student in an Organized Health Care Education/Training Program; PCP Family Medicine
DX: R10.9 Unspecified abdominal pain (principal)
CPT/HCPCS: 36415; 74177; 80053; 81001; 83690; 85025; 96361; 96374; 96375; 99283; 99284; 99285; J1170; J1885; J2405; J7030; Q9967

== ENCOUNTER 2023-05-10 14:13 | Emergency (ER) | payer BC, SELFPAY ==
[2023-05-10] VITALS (13 sets, daily range): BP systolic 121–126; BP diastolic 79–88; PULSE 72–90; RESP 18; TEMP 36.8; O2SAT 92–95; BMI 29.3
--- NOTE | 2023-05-10 16:06 | ED.ABDPAIN ---
HPI - Abdominal Pain General Time Seen by Provider: 16:06 Date Seen: 05/10/23 Chief Complaint: Abdominal Pain Stated Complaint: Abdominal pain Time Seen by Provider: 05/10/23 16:02 Source: patient, RN notes reviewed and old records reviewed Mode of arrival: ambulatory Limitations: no limitations History of Present Illness HPI narrative: 47-year-old male with history of alcohol dependence who presents today with abdominal pain and vomiting. Vomiting is been going on for couple of days. Denies hematemesis or dark or tarry stools. Says he has been unable to keep anything down other than alcohol. Denies chest pain or shortness of breath, no fevers or chills. Related Data Home Medications Medication Instructions Recorded Confirmed omeprazole 20 mg capsule,delayed 20 mg PO DAILY 10/15/21 11/18/22 release escitalopram oxalate 20 mg tablet 20 mg PO DAILY 10/30/22 11/18/22 losartan 25 mg tablet 25 mg PO DAILY 10/30/22 11/18/22 aripiprazole 5 mg tablet 5 mg PO DAILY 11/18/22 11/18/22 clonazepam 0.5 mg tablet 0.5 mg PO BID PRN 11/18/22 11/18/22 [id number] 2 cap PO TIDWM 11/18/22 11/18/22 24,000-76,000-120,000 unit capsule,delayed rel (Creon) Previous Rx's Medication Instructions Recorded folic acid 1 mg tablet 1 mg PO DAILY 30 days #30 tabs 11/03/22 furosemide 40 mg tablet 40 mg PO QAM #30 tabs 11/03/22 spironolactone 100 mg tablet 100 mg PO QAM #30 tabs 11/03/22 oxycodone 5 mg tablet 5 mg PO BID PRN pain #20 tabs 11/19/22 prochlorperazine maleate 5 mg 5 mg PO BID PRN nausea #14 tabs 11/19/22 tablet (Compazine) ondansetron 4 mg disintegrating 4 mg PO Q6H PRN nausea and 05/10/23 tablet vomiting #20 tabs potassium chloride 20 mEq 20 meq PO BID #10 tabs 05/10/23 tablet,extended release Allergies Allergy/AdvReac Type Severity Reaction Status Date / Time Penicillins Allergy Unknown Verified 05/10/23 14:33 Review of Systems Status of ROS Reports: 6 or more systems reviewed and unremarkable except as noted in History and below [facility] Medical History (Updated 05/10/23 @ 18:53 by Evangelist Babcock MD) Left breast mass ?N63.20 - Unspecified lump in the left breast, unspecified quadrant (ICD-10) Prolonged QT interval ?R94.31 - Abnormal electrocardiogram [ECG] [EKG] (ICD-10) Alcoholic cirrhosis of liver ?K70.30 - Alcoholic cirrhosis of liver without ascites (ICD-10) Tobacco dependence ?F17.200 - Nicotine dependence, unspecified, uncomplicated (ICD-10) Alcoholic cirrhosis of liver with ascites ?K70.31 - Alcoholic cirrhosis of liver with ascites (ICD-10) PTSD (post-traumatic stress disorder) ?F43.10 - Post-traumatic stress disorder, unspecified (ICD-10) Panic disorder ?F41.0 - Panic disorder [episodic paroxysmal anxiety] (ICD-10) Alcohol dependence ?F10.20 - Alcohol dependence, uncomplicated (ICD-10) Gastritis ?K29.70 - Gastritis, unspecified, without bleeding (ICD-10) Depression ?F32.A - Depression, unspecified (ICD-10) GERD (gastroesophageal reflux disease) ?K21.9 - Gastro-esophageal reflux disease without esophagitis (ICD-10) Pancreatitis ?K85.90 - Acute pancreatitis without necrosis or infection, unspecified (ICD-10) Surgical History (Updated 11/18/22 @ 10:49 by Maddy Leggett MD) Hx of breast reduction, elective ?Z98.890 - Other specified postprocedural states (ICD-10) S/P right knee surgery ?Z98.890 - Other specified postprocedural states (ICD-10) Social History (Updated 11/17/22 @ 23:30 by Waylon Lin MD) Narrative: Lives with Anna (would be medical decision maker if needed) and 7 yo son, infant daughter of SIDS in 2019. Social nicotine use, history of intermittent daily ETOH use, now sober since the end of October of 2022. In AA with good support from and friends. Full resuscitation in the event of cardiopulmonary demise. What is your current living situation?: I presently have a place to live Problems where you live: no known problems Problems where you live details: N/A In the past 12 months, utilities in danger of being shut off: no In past 12 months, lack of transportation kept you from medical appts, meetings, work, or getting things needed for daily living: no In the past 12 mos, have been you worried that your food would run out before you had money to buy more?: never true In the past 12 mos, the food you bought just didn't last and you didn't have money to buy more?: never true Highest level of school completed/degree received: Bachelor's degree Smoking Status: Current some day smoker What tobacco products do you use: cigarettes Smoking packs per day: 0.25 Smoking cigarettes per day: 5.0 Years smoked: 20 Smoking pack-years: 5.00 Do you use any of these nicotine containing products: None Second hand tobacco smoke exposure: Yes How often do you have a drink containing alcohol: 4 or more times a week Alcohol type: beer How many standard drinks containing alcohol do you have on a typical day: 10 or more How often do you have six or more drinks on one occasion: Weekly AUDIT-C Alcohol total score: 11 Non-prescribed substance use: denies use Caffeine: Yes How often does anyone, including family, friends and others, physically hurt you: never How often does anyone, including family, friends and others, insult or talk down to you: never How often does anyone, including family, friends and others, threaten you with harm: never How often does anyone, including family, friends and others, scream or curse at you: sometimes service: Yes Exam Narrative: Exam Narrative: General: Well-developed and well-nourished, no acute distress Head: Atraumatic and normocephalic Eyes: Pupils are equal reactive, extraocular motions intact, conjunctiva clear ENT: External nose and ears are normal, posterior pharynx without erythema or exudate Neck: No midline cervical tenderness, full spontaneous range of motion the neck, trachea midline, no adenopathy Heart: Regular rate and rhythm no murmurs or thrills Lungs: Clear to auscultation bilaterally without wheezes or crackles Abdomen: Soft, diffuse upper abdominal tenderness, nondistended with active bowel sounds Musculoskeletal: No tenderness, deformity, or edema Neurologic: Awake, alert, and oriented x3, no gross focal neurologic deficits, cranial nerves intact as tested Psych: Mood and affect are appropriate Skin: No rashes Const: Vital Signs, click to edit/add: Vital Signs - 24 hr 05/10/23 14:36 05/10/23 15:52 05/10/23 17:13 Temperature 98.3 F Pulse Rate 72 Pulse Rate [Pulse Oximeter] 90 85 Respiratory Rate 18 Blood Pressure Blood Pressure [Ri ght Arm] 125/88 Blood Pressure [Ri ght Upper Arm] 122/79 Pulse Oximetry 92 95 92 Oxygen Delivery Me thod Room Air Room Air 05/10/23 17:15 05/10/23 17:30 05/10/23 17:31 Temperature Pulse Rate 73 81 83 Pulse Rate [Pulse Oximeter] Respiratory Rate Blood Pressure 126/86 Blood Pressure [Ri ght Arm] Blood Pressure [Ri ght Upper Arm] Pulse Oximetry 92 94 94 Oxygen Delivery Me thod 05/10/23 17:45 05/10/23 18:00 05/10/23 18:01 Temperature Pulse Rate 74 74 74 Pulse Rate [Pulse Oximeter] Respiratory Rate Blood Pressure 121/82 Blood Pressure [Ri ght Arm] Blood Pressure [Ri ght Upper Arm] Pulse Oximetry 93 94 95 Oxygen Delivery Me thod 05/10/23 18:15 05/10/23 18:30 05/10/23 18:31 Temperature Pulse Rate 82 81 78 Pulse Rate [Pulse Oximeter] Respiratory Rate Blood Pressure 124/83 Blood Pressure [Ri ght Arm] Blood Pressure [Ri ght Upper Arm] Pulse Oximetry 95 93 94 Oxygen Delivery Me thod 05/10/23 18:45 Temperature Pulse Rate 83 Pulse Rate [Pulse Oximeter] Respiratory Rate Blood Pressure Blood Pressure [Ri ght Arm] Blood Pressure [Ri ght Upper Arm] Pulse Oximetry 95 Oxygen Delivery Me thod Course Course ED Course: Patient seen examined, prior records are reviewed. Patient presents today with abdominal pain and vomiting, history of alcohol dependence. No hypertension, tachycardia, agitation, diaphoresis, to suggest acute withdrawal. Epigastric tenderness, concern for possible acute pancreatitis, alcoholic gastritis also possible. Patient continues to smoke cigarettes Review of prior records shows multiple emergency department visits for epigastric pain and alcohol related gastritis. Reevaluation(s) Time of Reevaluation #1: 17:47 Reevaluation #1: Labs ordered and independently interpreted by me with elevated hepatic panel consistent with alcohol dependence, alcohol 0.13, lipase 20, magnesium 1.9, basic panel with potassium of 2.7 and this will be replaced intravenously and orally. No evidence for acute pancreatitis at this time, symptoms are most consistent with alcoholic gastritis and alcohol dependence with hypokalemia. Time of Reevaluation #2: 19:28 Reevaluation #2: Patient tolerated oral and IV potassium and is stable for discharge. Vital Signs Vital signs: Initial Vital Signs Temperature 98.3 F 05/10/23 14:36 Temperature Source Temporal Artery Scan 05/10/23 14:36 Pulse Rate 90 05/10/23 14:36 Pulse Rhythm Regular 05/10/23 14:36 Pulse Strength 3+ Normal 05/10/23 14:36 Respiratory Rate 18 05/10/23 14:36 Blood Pressure 122/79 05/10/23 14:36 Blood Pressure Mean 93 05/10/23 14:36 Blood Pressure Position Sitting 05/10/23 14:36 Pulse Oximetry 92 05/10/23 14:36 Oxygen Delivery Method Room Air 05/10/23 14:36 Vital Signs Temperature 98.3 F 05/10/23 14:36 Pulse Rate 90 05/10/23 14:36 Respiratory Rate 18 05/10/23 14:36 Blood Pressure 122/79 05/10/23 14:36 Pulse Oximetry 92 05/10/23 14:36 Oxygen Delivery Method Room Air 05/10/23 14:36 Temperature 98.3 F 05/10/23 14:36 Pulse Rate 83 05/10/23 18:45 Respiratory Rate 18 05/10/23 14:36 Blood Pressure 124/83 05/10/23 18:31 Pulse Oximetry 95 05/10/23 18:45 Oxygen Delivery Method Room Air 05/10/23 15:52 Medications Administered Medications: Discontinued Medications Generic Name Dose Route Start Last Admin Trade Name Freq PRN Reason Stop Dose Admin Diazepam 2.5 mg 05/10/23 17:19 05/10/23 17:27 Diazepam 5 Mg Tablet PO 05/10/23 17:20 2.5 mg ONCE ONE Administration Folic Acid 1 mg/ Multivitamins 1,011.2 mls @ 500 mls/hr 05/10/23 16:17 05/10/23 19:17 10 ml/ Thiamine HCl 100 mg/ IV 05/10/23 18:18 Infused Sodium Chloride .Q2H2M ML Infusion Potassium Chloride 10 meq in 100 mls @ 100 mls/hr 05/10/23 17:47 05/10/23 18:22 Potassium Chloride IVPB 05/10/23 18:46 100 mls/hr ONCE ONE Administration Ondansetron HCl 4 mg 05/10/23 16:07 05/10/23 16:59 Ondansetron 2 Mg/Ml Inj IVP 05/10/23 16:08 4 mg ONCE ONE Administration Pantoprazole Sodium 40 mg 05/10/23 16:07 05/10/23 16:59 Pantoprazole Sodium 40 Mg Inj IVP 05/10/23 16:08 40 mg ONCE ONE Administration Potassium Bicarbonate 25 meq 05/10/23 17:47 05/10/23 18:22 Potassium Bicarb 25 Meq Effervescent Tab PO 05/10/23 17:48 25 meq ONCE ONE Administration MDM - Abdominal Pain Lab Data Labs: Lab Results 05/10/23 05/10/23 05/10/23 Range/Units 16:35 16:35 16:35 WBC 7.98 (4.50-11.00) K/uL RBC 5.01 (4.30-5.90) m/uL Hgb 15.6 (13.5-17.5) gm/dL Hct 45.8 (37.0-53.0) % MCV 91 (80-100) fL MCH 31 (26-34) pg MCHC 34 (32-36) gm/dL RDW Coeff of Clint 17.5 H (11.5-15.5) % Plt Count 174 (140-440) K/uL Neut % (Auto) 64.5 (42.0-72.0) % Lymph % (Auto) 27.6 (20-44) % [place] % (Auto) 5.5 (0.0-11.0) % Eos % (Auto) 1.4 (0.0-7.0) % Baso % (Auto) 1.0 (0.0-3.0) % Neut # (Auto) 5.15 (1.7-7.0) K/uL Lymph # (Auto) 2.20 (0.90-2.90) K/uL [place] # (Auto) 0.40 (0.00-0.90) K/UL Eos # (Auto) 0.11 (0.00-0.50) K/uL Baso # (Auto) 0.08 (0.00-0.30) K/uL Abs Immat Gran (auto) 0.00 (0.00-0.30) K/uL Imm/Tot Granulo (auto) 0.0 % Sodium 137 (135-149) mmol/L Potassium 2.7 L* (3.6-5.1) mmol/L Chloride 104 (96-114) mmol/L Carbon Dioxide 23 (20-32) mmol/L Anion Gap 10 (7-15) mEq/L BUN 3 L (5-24) mg/dL Creatinine 0.6 (0.5-1.5) mg/dL Estimated Creat Clear 162.10 Estimated GFR 120 ml/min Glucose 95 (60-115) mg/dL Calcium 8.7 (8.4-10.6) mg/dL Magnesium 1.9 Cancelled (1.5-2.6) mg/dL Total Bilirubin 1.0 Cancelled (0.1-1.5) mg/dL Direct Bilirubin 0.3 (0.0-0.5) mg/dL AST (12-35) U/L ALT (4-50) U/L Alkaline Phosphatase (40-150) U/L Total Protein (6.0-8.3) g/dL Albumin (3.3-5.0) g/dL Lipase (23-300) U/L Ethyl Alcohol (0.01-0.03) % 05/10/23 05/10/23 05/10/23 Range/Units 16:35 16:35 16:35 WBC (4.50-11.00) K/uL RBC (4.30-5.90) m/uL Hgb (13.5-17.5) gm/dL Hct (37.0-53.0) % MCV (80-100) fL MCH (26-34) pg MCHC (32-36) gm/dL RDW Coeff of Clint (11.5-15.5) % Plt Count (140-440) K/uL Neut % (Auto) (42.0-72.0) % Lymph % (Auto) (20-44) % [place] % (Auto) (0.0-11.0) % Eos % (Auto) (0.0-7.0) % Baso % (Auto) (0.0-3.0) % Neut # (Auto) (1.7-7.0) K/uL Lymph # (Auto) (0.90-2.90) K/uL [place] # (Auto) (0.00-0.90) K/UL Eos # (Auto) (0.00-0.50) K/uL Baso # (Auto) (0.00-0.30) K/uL Abs Immat Gran (auto) (0.00-0.30) K/uL Imm/Tot Granulo (auto) % Sodium (135-149) mmol/L Potassium (3.6-5.1) mmol/L Chloride (96-114) mmol/L Carbon Dioxide (20-32) mmol/L Anion Gap (7-15) mEq/L BUN (5-24) mg/dL Creatinine (0.5-1.5) mg/dL Estimated Creat Clear Estimated GFR ml/min Glucose (60-115) mg/dL Calcium (8.4-10.6) mg/dL Magnesium (1.5-2.6) mg/dL Total Bilirubin (0.1-1.5) mg/dL Direct Bilirubin Cancelled (0.0-0.5) mg/dL AST 177 H Cancelled (12-35) U/L ALT 89 H Cancelled (4-50) U/L Alkaline Phosphatase 226 H (40-150) U/L Total Protein (6.0-8.3) g/dL Albumin (3.3-5.0) g/dL Lipase (23-300) U/L Ethyl Alcohol (0.01-0.03) % 05/10/23 05/10/23 05/10/23 Range/Units 16:35 16:35 16:35 WBC (4.50-11.00) K/uL RBC (4.30-5.90) m/uL Hgb (13.5-17.5) gm/dL Hct (37.0-53.0) % MCV (80-100) fL MCH (26-34) pg MCHC (32-36) gm/dL RDW Coeff of Clint (11.5-15.5) % Plt Count (140-440) K/uL Neut % (Auto) (42.0-72.0) % Lymph % (Auto) (20-44) % [place] % (Auto) (0.0-11.0) % Eos % (Auto) (0.0-7.0) % Baso % (Auto) (0.0-3.0) % Neut # (Auto) (1.7-7.0) K/uL Lymph # (Auto) (0.90-2.90) K/uL [place] # (Auto) (0.00-0.90) K/UL Eos # (Auto) (0.00-0.50) K/uL Baso # (Auto) (0.00-0.30) K/uL Abs Immat Gran (auto) (0.00-0.30) K/uL Imm/Tot Granulo (auto) % Sodium (135-149) mmol/L Potassium (3.6-5.1) mmol/L Chloride (96-114) mmol/L Carbon Dioxide (20-32) mmol/L Anion Gap (7-15) mEq/L BUN (5-24) mg/dL Creatinine (0.5-1.5) mg/dL Estimated Creat Clear Estimated GFR ml/min Glucose (60-115) mg/dL Calcium (8.4-10.6) mg/dL Magnesium (1.5-2.6) mg/dL Total Bilirubin (0.1-1.5) mg/dL Direct Bilirubin (0.0-0.5) mg/dL AST (12-35) U/L ALT (4-50) U/L Alkaline Phosphatase Cancelled (40-150) U/L Total Protein 7.5 Cancelled (6.0-8.3) g/dL Albumin 3.6 Cancelled (3.3-5.0) g/dL Lipase 20 L (23-300) U/L Ethyl Alcohol 0.13 H (0.01-0.03) % Discharge Plan Discharge Clinical Impression: Acute alcoholic gastritis without hemorrhage, Nausea and vomiting, Acute hypokalemia, Alcohol dependence Patient Disposition: Home, Self-Care Condition: Stable Instructions: Gastritis (DC), Acute Nausea and Vomiting (DC), Alcohol Dependence (ED) Activity Level: No Restrictions Discharge Diet: Clear Liquid Prescriptions: New potassium chloride 20 mEq tablet extended release 20 meq PO BID Qty: 10 0RF ondansetron 4 mg tablet,disintegrating 4 mg PO Q6H PRN (Reason: nausea and vomiting) Qty: 20 0RF No Action omeprazole 20 mg capsule,delayed release(DR/EC) 20 mg PO DAILY losartan 25 mg tablet 25 mg PO DAILY escitalopram oxalate 20 mg tablet 20 mg PO DAILY folic acid 1 mg Tablet 1 mg PO DAILY 30 Days Qty: 30 0RF furosemide 40 mg tablet 40 mg PO QAM Qty: 30 2RF spironolactone 100 mg tablet 100 mg PO QAM Qty: 30 2RF clonazepam 0.5 mg tablet 0.5 mg PO BID PRN aripiprazole 5 mg tablet 5 mg PO DAILY Creon 24,000-76,000 -120,000 unit capsule,delayed release(DR/EC) 2 cap PO TIDWM Rx Instructions: take 2 capsule by oral route 3 times every day with meals and 1 caps w/ each snack swallowing whole. Do not crush, chew . Max 10/day oxycodone 5 mg Tablet 5 mg PO BID PRN (Reason: pain) Qty: 20 0RF prochlorperazine maleate [Compazine] 5 mg tablet 5 mg PO BID PRN (Reason: nausea) Qty: 14 0RF Follow Up/Referrals: Harjinder Stout MD [Primary Care Provider] - Stand Alone Forms: [facility] Info Instructions
[2023-05-10] MEDS: PANTOPRAZOLE SODIUM 40 MG INJ IVP (16:59)
[2023-05-10] MEDS: ONDANSETRON 2 MG/ML inj 4 MG IVP (16:59)
[2023-05-10 17:22] LABS: Basophils Absolute Auto 0.08 K/uL (0.00-0.30); Eosinophils Absolute Auto 0.11 K/uL (0.00-0.50); Eosinophils Percent Auto 1.4 % (0.0-7.0); Hematocrit 45.8 % (37.0-53.0); Hemoglobin* 15.6 gm/dL (13.5-17.5); Lymphocytes Percent Auto 27.6 % (20-44); Mean Corpuscular HGB Conc 34 gm/dL (32-36); Mean Corpuscular Hemoglobin 31 pg (26-34); Mean Corpuscular Volume 91 fL (80-100); Monocytes Percent Auto 5.5 % (0.0-11.0); Neutrophils Absolute Auto 5.15 K/uL (1.7-7.0); Neutrophils Percent Auto 64.5 % (42.0-72.0); Platelet Count* 174 K/uL (140-440); RDW Coefficient of Variation % 17.5 % (11.5-15.5); Red Blood Count 5.01 m/uL (4.30-5.90); White Blood Count* 7.98 K/uL (4.50-11.00)
[2023-05-10 17:23] LABS: Slide Review Reflex No
[2023-05-10] MEDS: diazePAM 5 MG TABLET 2.5 MG PO (17:27)
[2023-05-10 17:39] LABS: Albumin* 3.6 g/dL (3.3-5.0); Chloride* 104 mmol/L (96-114); Sodium* 137 mmol/L (135-149)
[2023-05-10 17:41] LABS: Creatinine* 0.6 mg/dL (0.5-1.5); Estimated Glomerular Filt Rate 120 ml/min
[2023-05-10 17:42] LABS: Alanine Aminotransferase* 89 U/L (4-50); Alkaline Phosphatase* 226 U/L (40-150); Anion Gap 10 mEq/L (7-15); Aspartate Amino Transferase* 177 U/L (12-35); Bilirubin Direct* 0.3 mg/dL (0.0-0.5); Blood Urea Nitrogen* 3 mg/dL (5-24); Calcium* 8.7 mg/dL (8.4-10.6); Carbon Dioxide* 23 mmol/L (20-32); Glucose* 95 mg/dL (60-115); Lipase* 20 U/L (23-300); Magnesium* 1.9 mg/dL (1.5-2.6); Total Protein* 7.5 g/dL (6.0-8.3)
[2023-05-10 17:43] LABS: Ethanol* 0.13 % (0.01-0.03); Potassium* 2.7 mmol/L (3.6-5.1)
[2023-05-10] MEDS: POTASSIUM CHLORIDE 10 MEQ/100 ML PIGGYBACK 100 MEQ IVPB (18:22)
[2023-05-10] MEDS: POTASSIUM BICARB 25 MEQ EFFERVESCENT TAB PO (18:22)
== END 2023-05-10 19:56 | disposition home or self-care (01) ==
PROVIDERS: Emergency Provider Family Medicine; PCP Family Medicine
DX: K29.20 Alcoholic gastritis without bleeding (principal); F10.20 Alcohol dependence, uncomplicated; R11.2 Nausea with vomiting, unspecified; E87.6 Hypokalemia
CPT/HCPCS: 36415; 80048; 80076; 82077; 83690; 83735; 85025; 96365; 96375; 99284; A9270; C9113; J2405; J3411; J3480; J7030